=== PATIENT | male | born 1950 | race Caucasian/White ===

== ENCOUNTER 2021-09-07 02:08 | Outpatient (CLI) | payer MEDICARE, SELFPAY ==
[2021-09-07 12:44] LABS: ALT 30 U/L (16-63); AST 17 U/L (15-37); Albumin 4.3 g/dL (3.4-5.0); Alkaline Phosphatase 72 U/L (46-116); Anion Gap 4.1 mmol/L (3-11); BUN 16 mg/dL (7-18); Bilirubin, Total 0.8 mg/dL (0.2-1.0); CO2 32.9 mmol/L (21.0-32.0); CREATININE 0.9 mg/dL (0.70-1.30); Calcium 8.7 mg/dL (8.5-10.1); Calculated LDL 153 mg/dL (<100); Chloride 103 mmol/L (98-107); Cholesterol 240 mg/dL (<200); Glucose 98 mg/dL (74-106); HDL Cholesterol 71 mg/dL (40-60); Potassium 4.4 mmol/L (3.5-5.1); Sodium 140 mmol/L (136-145); Total Protein 7.4 g/dL (6.4-8.2); Triglyceride 84 mg/dL (<150)
[2021-09-07 18:32] LABS: PSA, Screening 0.4 ng/mL (0.0-6.5)
== END 2021-09-07 02:09 | disposition home or self-care (01) ==
LOC: LBO 02:08
PROVIDERS: PCP Internal Medicine; Visit Provider Internal Medicine
DX: I10 Essential (primary) hypertension (principal); E78.5 Hyperlipidemia, unspecified; Z12.5 Encounter for screening for malignant neoplasm of prostate
CPT/HCPCS: 36415; 80053; 80061; 84153

== ENCOUNTER 2022-10-29 09:07 | Outpatient (REF) | payer MEDICARE, SELFPAY ==
[2022-10-29 16:07] LABS: ALT 31 U/L (16-63); AST 20 U/L (15-37); Albumin 4.2 g/dL (3.4-5.0); Alkaline Phosphatase 87 U/L (46-116); Anion Gap 5.3 mmol/L (3-11); BUN 16 mg/dL (7-18); Bilirubin, Total 0.7 mg/dL (0.2-1.0); CO2 31.7 mmol/L (21.0-32.0); CREATININE 0.9 mg/dL (0.70-1.30); Calcium 9.3 mg/dL (8.5-10.1); Calculated LDL 196 mg/dL (<100); Chloride 106 mmol/L (98-107); Cholesterol 287 mg/dL (<200); Estimated GFR 90.18 (mL/min/1.73m2); Glucose 85 mg/dL (74-106); HDL Cholesterol 69 mg/dL (40-60); Potassium 5.3 mmol/L (3.5-5.1); Sodium 143 mmol/L (136-145); Total Protein 7.2 g/dL (6.4-8.2); Triglyceride 112 mg/dL (<150)
== END 2022-10-29 09:08 | disposition home or self-care (01) ==
LOC: NCHCN 09:07
PROVIDERS: PCP Family Medicine; Visit Provider Family Medicine
DX: E78.5 Hyperlipidemia, unspecified; I10 Essential (primary) hypertension
CPT/HCPCS: 80053; 80061

== ENCOUNTER 2022-12-05 16:24 | Outpatient (REF) | payer MEDICARE, SELFPAY ==
[2022-12-05 17:16] LABS: ALT 37 U/L (16-63); AST 24 U/L (15-37); Alkaline Phosphatase 78 U/L (46-116); Anion Gap 4.2 mmol/L (3-11); BUN 14 mg/dL (7-18); Bilirubin, Total 0.8 mg/dL (0.2-1.0); CO2 31.8 mmol/L (21.0-32.0); CREATININE 0.8 mg/dL (0.70-1.30); Calcium 8.8 mg/dL (8.5-10.1); Calculated LDL 69 mg/dL (<100); Chloride 106 mmol/L (98-107); Cholesterol 146 mg/dL (<200); Estimated GFR 92.87 (mL/min/1.73m2); Glucose 87 mg/dL (74-106); HDL Cholesterol 65 mg/dL (40-60); Potassium 4.5 mmol/L (3.5-5.1); Sodium 142 mmol/L (136-145); Total Protein 7.2 g/dL (6.4-8.2); Triglyceride 62 mg/dL (<150)
[2022-12-06 09:41] LABS: TSH (W/Ref FT4) 1.27 uIU/mL (0.36-3.74)
== END 2022-12-05 16:25 | disposition home or self-care (01) ==
LOC: NCHCN 16:24
PROVIDERS: PCP Family Medicine; Visit Provider Family Medicine
DX: E78.5 Hyperlipidemia, unspecified (principal); F43.21 Adjustment disorder with depressed mood
CPT/HCPCS: 80053; 80061; 84443

== ENCOUNTER 2023-10-31 13:12 | Outpatient (REF) | payer MEDICARE, SELFPAY ==
[2023-10-31 15:25] LABS: HGB 15.1 g/dL (13.5-17.5); MCH 31.2 pg (27.0-33.0); MCHC 33.6 % (32.0-36.0); MCV 93 fL (80-95); MPV 11.5 fL (8.0-11.0); Platelet Count 254 10^3/uL (130-400); RBC 4.84 10^6/uL (4.36-5.78); RDW-SD 44.1 fL
[2023-10-31 15:29] LABS: ALT 37 U/L (16-63); AST 27 U/L (15-37); Albumin 3.8 g/dL (3.4-5.0); Alkaline Phosphatase 70 U/L (46-116); Anion Gap 9.6 mmol/L (3-11); BUN 17 mg/dL (7-18); Bilirubin, Total 0.6 mg/dL (0.2-1.0); CO2 30.4 mmol/L (21.0-32.0); CREATININE 0.9 mg/dL (0.70-1.30); Calcium 8.7 mg/dL (8.5-10.1); Calculated LDL 57 mg/dL (<100); Chloride 106 mmol/L (98-107); Cholesterol 135 mg/dL (<200); Estimated GFR 89.62 (mL/min/1.73m2); Glucose 82 mg/dL (74-106); HDL Cholesterol 63 mg/dL (40-60); Potassium 4.8 mmol/L (3.5-5.1); Sodium 146 mmol/L (136-145); Total Protein 6.7 g/dL (6.4-8.2); Triglyceride 79 mg/dL (<150)
== END 2023-10-31 13:13 | disposition home or self-care (01) ==
LOC: NCHCN 13:12
PROVIDERS: PCP Family Medicine; Referring Provider Family Medicine; Visit Provider Family Medicine
DX: E78.5 Hyperlipidemia, unspecified (principal)
CPT/HCPCS: 80053; 80061; 85027

== ENCOUNTER 2024-02-26 21:43 | Outpatient (REF) | payer MEDICARE, SELFPAY ==
[2024-02-28 10:06] LABS: PSA, Screening 0.4 ng/mL (<=6.5)
== END 2024-02-26 21:44 | disposition home or self-care (01) ==
LOC: NCHCN 21:43
PROVIDERS: PCP Family Medicine; Visit Provider Family Medicine
DX: Z12.5 Encounter for screening for malignant neoplasm of prostate (principal)
CPT/HCPCS: 84153

== ENCOUNTER → 2024-03-02 02:21 | Outpatient (CLI) | payer MEDICARE, SELFPAY ==
--- OUTSIDE RECORDS SUMMARY | 2024-03-02 02:23 | XMS_ITS | Encounter Summary ---
Author Organization [facility] Address [address] [place] [address] Care Team Providers Care Partnership Marketing Manager Name Role Phone Ya Yee MD Primary Care Provider [phone] [phone] Reason for Visit * Reason Onset Date Comments Results 09/14/2021 Encounter Details Date Type Department Care Team (Late st Contact Info) Description 09/14/2021 Orders Only [facility] Adult Primary Care - [address] [phone] Ya Yee MD [address] [place] [phone] Social History Tobacco Use Types Packs/Day Years Used Date Smoking Tobacco: Never Smokeless Tobacco: Never Comments:Quit as a teenager Alcohol Use Standard Drinks/Week Comments Yes 8 (1 standard drink = 0.6 oz pur e alcohol) AUDIT-C Answer Date Recorded Q1: How often do you have a drink containing alcohol? 4 or more times a week 08/01/2020 Q2: How many drinks containi ng alcohol do you have on a typical day when you are drinking? 1 or 2 0 Q3: How often do you have si x or more drinks on one occasion? Never 08/01/2020 Overall Financial Resource Strain (CARDIA) Answe r Date Recorded How hard is it for you to pa y for the very basics like food, housing, medical care, and heating? Not hard at all 09/12/2021 PHQ-2 Answer Date Recorded PHQ-2 SUBTOTAL 1 08/30/2021 Hunger Vital Sign Answer Date Recorded Within the past 12 months, y ou worried that your food would run out before you got the money to buy more. Never true 09/12/19 22 Within the past 12 months, t he food you bought just didn't last and you didn't have money to get more. Never true 09/12/2021 PRAPARE - Transportation Answer Date Re corded In the past 12 months, has l ack of transportation kept you from medical appointments or from getting medications? No 08/20 In the past 12 months, has l ack of transportation kept you from meetings, work, or from getting things needed for daily living? No 09/12/2021 Housing Stability Vital Sign Answer Levi e Recorded In the last 12 months, was t here a time when you were not able to pay the mortgage or rent on time? No 09/12/2021 In the last 12 months, how many places have you lived? 2 09/12/2021 In the last 12 months, was t here a time when you did not have a steady place to sleep or slept in a chcf (including now)? No 09/12/2021 Interpersonal Safety Answer Date Record ed How often does anyone, orly chambers family, hit, punch or physically hurt you? Never 08/30/2021 How often does anyone, orly chambers family, insult, scream, curse or threaten to hurt you? Never 08/30/2021 Sex and Gender Information Value Date Recorded Sex Assigned at Not on file Gender Identity Male 10/27/2019 18:25 EDT Sexual Orientation Not on file documented as of this encounter Functional Status Functional Status Response Date of Assess ment Because of a physical, menta l, or emotional condition, does this person have difficulty doing errands alone such as visiting a doctor's office or shopping? No 04/23/2018 Cognitive Status Response Date of Assessm ent Because of a physical, menta l, or emotional condition, does this person have serious difficulty concentrating, remembering, or making decisions? No 04/23/2018 documented as of this encounter Progress Notes * Deirdre Saravia - 09/14/2021 8315 EST Enter/Edit documented in this encounter Plan of Treatment Not on file documented as of this encounter Goals Goal Patient Goal Type Associated Problems Recent Progress Patient-Stated? Author LDL < 100 Result Component Hyperlipidemia 113( 9 9:29 EDT) No Colleen Arora documented as of this encounter Procedures Procedure Name Priority Date/Time Associated Diagnosis Comments LIPID PROFILE (INCLUDES CHOLESTEROL, TRIGLYCERIDES, HDL, LDL) Routine 09/07/2021 COMPREHENSIVE METABOLIC PANEL (CMP) Routine 09/07/2021 documented in this encounter Results * (ABNORMAL) LIPID PROFILE (INCLUDES CHOLESTEROL, TRIGLYCERIDES, HDL, LDL) (09/07/2021) Cholesterol, External 240 <200 mg/dL EXTER[facility]ILITY Triglycerides, External 84 <150 mg/dL [facility] HDL, External 71 40 - 60 mg/dL [facility] LDL, External 153 <100 mg/dL [facility] Chol/HDL Ratio, External [facility] Fasting?, External unk [facility] Blood VENOUS BLOOD / Unknown 09/07/2021 Historical Provider MD CHEMISTRY & BLOOD GAS ORDERABLES EX[facility] * (ABNORMAL) COMPREHENSIVE METABOLIC PANEL (CMP) (09/07/2021) GFR, Calculated, External [facility] Glucose, Serum, External 98 74 - 106 mg/dL [facility] Albumin, External 4.3 3.4 - 5.0 g/dL [facility] Total Alkaline Phosphatase, External 72 46 - 116 U/L [facility] ALT, External 30 16 - 63 U/L [facility] AST, External 17 15 - 37 U/L [facility] BUN, External 16 7 - 18 mg/dL [facility] Calculated Calcium, External [facility] Calcium, External 8.7 8.5 - 10.1 mg/dL [facility] Chloride, External 103 98 - 107 mmol/L [facility] CO2, External 32.9 21.0 - 32.0 mmol/L [facility] Creatinine, External 0.9 0.70 - 1.30 mg/dL [facility] Fasting?, External unk [facility] Potassium, External 4.4 3.5 - 5.1 mmol/L [facility] Sodium, External 140 136 - 145 mmol/L [facility] Total Protein, External 7.4 6.4 - 8.2 g/dL [facility] Bilirubin, Total, External 0.8 0.2 - 1.0 mg/dL [facility] Blood VENOUS BLOOD / Unknown 09/07/2021 Historical Provider CHEMISTRY & BLOOD GAS ORDERABLES EXTERNAL FACILITY documented in this encounter Visit Diagnoses Not on filedocumented in this encounter Orders Lab Orders Without Results Count Last Ordered D ate First Ordered Date LIPID PROFILE (INCLUDES CHOL ESTEROL, TRIGLYCERIDES, HDL, LDL) 1 09/14/2021 documented in this encounter Care Teams Partnership Marketing Manager Relationship Specialty Start Date End Date Ya Yee MD [address] [place] [phone] PCP - General 02/23/16 10/02/21 documented as of this encounter
--- OUTSIDE RECORDS SUMMARY | 2024-03-02 02:23 | XMS_ITS | Encounter Summary ---
Author Organization [facility] Address [address] [place] [address] Care Team Providers Care Powerplant Operator Name Role Phone Ya Yee MD Primary Care Provider [phone] [phone] Reason for Visit * Reason Comments Medicare Annual Wellness Visit Encounter Details Date Type Department Care Team (Late st Contact Info) Description 09/12/2021 9:30 EST Office Visit [facility] Adult Primary Care - [address] [phone] Ya Yee MD [address] [place] [phone] Routine health maintenance (Primary Dx); Benign essential hypertension; Hyperlipidemia, unspecified hyperlipidemia type; Adjustment disorder with depressed mood Social History Tobacco Use Types Packs/Day Years [...] place to sleep or slept in a senior living (including now)? No 09/12/2021 Interpersonal Safety Answer [...] on file documented as of this encounter Last Filed Vital Signs Vital Sign Reading Time Taken Comments Blood Pressure 148/82 09/12/2021 0929 EST Pulse 68 09/12/2021 0929 EST Temperature 37.2 ??C (98.9 ??F) 09/12/2021 0929 EST Respiratory Rate 12 09/12/2021 0929 EST Oxygen Saturation - - Inhaled Oxygen Concentration - - Weight 71.3 kg (157 lb 3.2 oz) 09/12/[address] Height 176.4 cm (5' 9.45) 09/12/2021 0929 EST Body Mass Index 22.92 09/12/2021 0929 EST documented in this encounter Functional Status Functional Status Response [...] No 04/23/2018 documented as of this encounter Ordered Prescriptions Prescription Sig Dispensed Refills Start Date End Da te citalopram (CELEXA) 10 mg tablet Take 1 Tablet by mouth daily. 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 ??He is ??and lives with his . ??Current exercise: walking. ??Current diet: healthy diet ??in general. ??Stress issues are: none?Functional or impairment concerns are: none. ??He has normal activities of daily living. ?His home environment is safe. ??He is at low risk for falling. ??The healthcare team involved in caring for this patient include the following providers:(otolanyngology Chief Complaint Patient presents with ??? Medicare Annual Wellness Visit HPI Mr. Ramirez presents for annual visit. Since his last visit he and his have moved to [facility]. He reports that he is enjoying the new medication but has struggled with the transition more than he anticipated. 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 Happy that they made the move but it certainly has been harder than he anticipated. He denies any thoughts of self-harm. He does endorse some apathy. Heis sleeping well. He has no other physical complaints today. He denies chest pain or shortness of breath. No GI symptoms. He remains active walking and doing projects around the house. He is thinking about volunteering for a senior ride program. 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 Health maintenance: Due for [employer] Medicare Annual Wellness Visit - Subsequent (only updates are needed) Essential components: Patient questionnaire completed and reviewed: Yes. Full history done with PMH, PSH, SH, FH, ROS. The patient's problem list, past medical/surgical history, medications, allergies, family and social history were all updated and reviewed. Done: Yes Diet Reviewed: healthy - no recommendations Level of activity: active: 5 - 6 times per week Mood Screen; Behavioral Health Screen 08/27/2016 04/11/2018 04/25/2019 06/07/2020 06/21/2021 06/21/2021 08/30/2021 PHQ-2 0 0 0 0 0 0 1 SASQ 0 0 0 - 0 0 0 Prescription Misuse 0 0 0 - 0 0 0 Vision: assessed: No: grossly normal Functional Evaluation completed ADLs: independent Cognitive: no impairment Hearing: grossly normal Fall Risk: Fall risk screening was completed during this visit.The patient is considered to be at high risk for falls for the reasons listed below. - patient has had a previous fall within the past 12 months - number of falls in the past 12 months: 1 Follow-up actions discussed with the patient are listed below. Home Safety: smoke detectors and CO detectors Social Determinants of Health Screening: Respondent: Respondent: Self Hunger Vital Sign Result: Housing: Housing Quality: Utilities: Transportation: Physical Hurt: Insult/Talk Down: Threaten: Scream/Curse: Intervention(s): Advance Directives - has an advanced directive - a copy has been provided Updated list of treating providers on problem list: Yes Written Health Plan in patient instructions: No Billing - Subsequent [id number] Patient Active Problem List Diagnosis ??? Sensorineural hearing loss ??? Benign neoplasm of eyelid including canthus ??? Proteinuria ??? Benign essential hypertension ??? Degenerative joint disease involving multiple joints ??? Hyperlipidemia ??? Diverticulosis of large intestine without hemorrhage Outpatient Medications Marked as Taking for the 09/12/21 encounter (Office Visit) with Ya Yee MD Medication Sig Dispense Refill ??? Cholecalciferol, Vitamin D3, 400 unit tablet Take 1,000 Units by mouth daily. ??? cyanocobalamin (VITAMIN B-12) 500 mcg tablet Take 500 mcg by mouth daily. ROS - unremarkable except as noted in the HPI Objective: BP (!) 148/82 Pulse 68 Temp 37.2 ??C (98.9 ??F) (Temporal) Resp 12 Ht 176.4 cm (69.45) Wt 71.3 kg (157 lb 3.2 oz) BMI 22.92 kg/m?? Physical Exam Constitutional: General: He is not in acute distress. Appearance: He is well-developed and well-nourished. He is not diaphoretic. Neck: Vascular: No carotid bruit. Cardiovascular: Rate and Rhythm: Normal rate and regular rhythm. Pulses: Intact distal pulses. Heart sounds: Normal heart sounds. No murmur heard. Pulmonary: Effort: Pulmonary effort is normal. Breath sounds: Normal breath sounds. Abdominal: General: Bowel sounds are normal. There is no distension. Palpations: Abdomen is soft. Tenderness: There is no abdominal tenderness. Neurological: Mental Status: He is alert and oriented to person, place, and time. Psychiatric: Attention and Perception: Attention and perception normal. Mood and Affect: Affect is flat. Behavior: Behavior normal. Thought Content: Thought content normal. Cognition and Memory: Cognition and memory normal. Results for orders placed or performed in visit on 09/07/21 PSA TOTAL, DIAGNOSTIC Result Value Ref Range PSA 0.4 0.0 - 6.5 ng/mL Assessment / Plan: Luis was seen today for medicare annual wellness visit. Diagnoses and all orders for this visit: Routine health maintenance: Healthy active lifestyle, low risk for falls Benign essential hypertension: Home blood pressure readings are in the 1 20-1 30 systolic range. Slightly elevated here likely due to whitecoat hypertension -Monitor Adjustment disorder with depressed mood: Patient does endorse some depression and apathy which I think is secondary to an adjustment reaction. We discussed the importance of exercise, schedule and social interaction. Patient is interested in a trial of a low-dose SSRI which I think is appropriate. - citalopram (CELEXA) 10 mg tablet; Take 1 Tablet by mouth daily. Follow-up 1 year or sooner as needed. Patient will follow up via [facility] regarding how the trial ofcitalopram is going in a few weeks Today's telp-iz-[id number] visit time was 45 minutes with 30 minutes spent in counseling and/or coordination of care for the problems listed above. Ya Yee MD 09/12/2021 13:21 Portions of this document have been prepared with speech recognition software or keyboard database design analyst techniques. Minor irregularities or keyboarding misprints may be present. documented in this encounter Plan of Treatment Not on file documented as of this encounter Goals Goal Patient Goal Type Associated Problems Recent Progress Patient-Stated? Author LDL < 100 Result Component Hyperlipidemia 113( 9 9:29 EDT) Colleen Gracia documented as of this encounter Visit Diagnoses Diagnosis Routine health maintenance- Primary Routine general medical examination at a [facility] Benign essential hypertension Essential hypertension, benign Hyperlipidemia, unspecified hyperlipidemia type Adjustment disorder with depressed mood documented in this encounter Care Teams Powerplant Operator Relationship Specialty Start Date End Date Ya Yee MD [address] [place] [phone] PCP - General 02/23/16 10/02/21 documented as of this encounter
--- OUTSIDE RECORDS SUMMARY | 2024-03-02 02:23 | XMS_ITS | Encounter Summary ---
Author Organization [facility] Address [address] [place] [address] Care Team Providers Care Rfid Engineer Name Role Phone Ya Yee MD Primary Care Provider [phone] [phone] Reason for Visit * Reason Onset Date Comments Labs Only 06/28/2021 Encounter Details Date Type Department Care Team (Late st Contact Info) Description 06/28/2021 Orders Only [facility] Adult Primary Care - [address] [phone] Ya Yee MD [address] [place] [phone] Screening for prostate cancer (Primary Dx); Benign essential hypertension; Hyperlipidemia, unspecified hyperlipidemia type Social History Tobacco Use Types Packs/Day Years [...] care, and heating? Not hard at all 06/21/2021 PHQ-2 Answer Date Recorded PHQ-2 SUBTOTAL 0 06/21/2021 Hunger Vital Sign Answer Date Recorded Within the past 12 months, y ou worried that your food would run out before you got the money to buy more. Never true 06/21/20 21 Within the past 12 months, t he food you bought just didn't last and you didn't have money to get more. Never true 06/21/2021 PRAPARE - Transportation Answer Date Re corded In the past 12 months, has l ack of transportation kept you from medical appointments or from getting medications? No 10/2020 In the past 12 months, has l ack of transportation kept you from meetings, work, or from getting things needed for daily living? No 06/21/2021 Housing Stability Vital Sign Answer Levi e Recorded In the last 12 months, was t here a time when you were not able to pay the mortgage or rent on time? No 06/21/2021 In the last 12 months, how many places have you lived? 2 06/21/2021 In the last 12 months, was t here a time when you did not have a steady place to sleep or slept in a fpc (including now)? No 06/21/2021 Interpersonal Safety Answer Date Record ed How often does anyone, orly chambers family, hit, punch or physically hurt you? Never 06/21/2021 How often does anyone, orly chambers family, insult, scream, curse or threaten to hurt you? Never 06/21/2021 Sex and Gender Information Value Date Recorded [...] No 04/23/2018 documented as of this encounter Plan of Treatment Not on file documented as of this encounter Goals Goal Patient Goal Type Associated Problems Recent Progress Patient-Stated? Author LDL < 100 Result Component Hyperlipidemia 113( 9 9:29 EDT) No Colleen Arora documented as of this encounter Visit Diagnoses Diagnosis Screening for prostate cancer- Primary Special screening for malignant neoplasm of prostate Benign essential hypertension Essential hypertension, benign Hyperlipidemia, unspecified hyperlipidemia type documented in this encounter Care Teams Rfid Engineer Relationship Specialty Start Date End Date Ya Yee MD [address] [place] [phone] PCP - General 02/23/16 10/02/21 documented as of this encounter
--- OUTSIDE RECORDS SUMMARY | 2024-03-02 02:23 | XMS_ITS | Encounter Summary ---
Author Organization [facility] Address [address] [place] [address] Care Team Providers Care Ict Educator Name Role Phone Ya Yee MD Primary Care Provider [phone] [phone] Reason for Visit * Reason Comments Cerumen Impaction Encounter Details Date Type Department Care Team (Late st Contact Info) Description 11/25/2020 8:30 EDT Office Visit [facility] ENT- [address] [phone] Marge Shields, PA-C [address] [facility], [address] [place] [address] Impacted cerumen of left ear (Primary Dx) Social History Tobacco Use Types Packs/Day Years [...] more drinks on one occasion? Never 08/01/2020 PHQ-2 Answer Date Recorded PHQ-2 SUBTOTAL 0 06/07/2020 Hunger Vital Sign Answer Date Recorded Within the past 12 months, y ou worried that your food would run out before you got the money to buy more. Never true 08/01/20 20 Within the past 12 months, t he food you bought just didn't last and you didn't have money to get more. Never true 08/01/2020 Interpersonal Safety Answer Date Record ed Physically Hurt Never 04/26/2020 Verbally Threaten Not on file 04/26/2020 Sex and Gender Information Value Date Recorded [...] as of this encounter Progress Notes * Marge Shields PA-C - 11/25/2020 0830 EDT .Luis Clayton presents today for management of ear wax. He notes no ear pain or otorrhea. He has used debrox in the left ear for cerumen adhered to TM. ENT Cerumenectomy Indications for Procedure: Cerumen impairs exam of clinically significant portions of the ear(s). and Obstructive copious cerumen that cannot be removed safely without magnification and multiple instruments. Careful examination of the ear and removal of cerumen was done on the left ear using the operating microscope and microinstruments/suction. The patient tolerated this procedure well. Complications: None Findings: Left canal and TM WNL after wax removed. Right canal and TM WNL. Assess: Cerumen impaction Plan: Follow up visit 3 months, may use debrox prior. Marge Shields PA-C documented in this encounter Plan of Treatment Not on file documented as of this encounter Goals Goal Patient Goal Type Associated Problems Recent Progress Patient-Stated? Author LDL < 100 Result Component Hyperlipidemia 113( 9 9:29 EDT) No Colleen Arora documented as of this encounter Visit Diagnoses Diagnosis Impacted cerumen of left ear- Primary Impacted cerumen documented in this encounter Care Teams Ict Educator Relationship Specialty Start Date End Date Ya Yee MD [address] [place] [phone] PCP - General 02/23/16 10/02/21 documented as of this encounter
--- OUTSIDE RECORDS SUMMARY | 2024-03-02 02:23 | XMS_ITS | Encounter Summary ---
Author Organization [facility] Address [address] [place] [address] Care Team Providers Care Antique Clocks Repairer Name Role Phone Ya Yee MD Primary Care Provider [phone] [phone] Encounter Details Date Type Department Care Team (Latest Contact Info) Description 02/27/2021 Travel Social History Tobacco Use Types Packs/Day Years [...] 18:25 EDT Sexual Orientation Not on file COVID-19 Exposure Response Date Recorded In the last month, have you been in contact with someone who was confirmed or suspected to have Coronavirus / COVID-19? No / Unsure 02/27/2021 16:16 EDT documented as of this encounter Functional Status [...] documented as of this encounter Visit Diagnoses Not on filedocumented in this encounter Care Teams Antique Clocks Repairer Relationship Specialty Start Date End Date Ya Yee MD [address] [place] [phone] PCP - General 02/23/16 10/02/21 documented as of this encounter
--- OUTSIDE RECORDS SUMMARY | 2024-03-02 02:23 | XMS_ITS | Encounter Summary ---
Author Organization [facility] Address [address] [place] [address] Care Team Providers Care Forensic Technician Name Role Phone Ya Yee MD Primary Care Provider [phone] [phone] Reason for Visit * Reason Onset Date Comments Appointment Related 06/29/2021 Encounter Details Date Type Department Care Team (Late st Contact Info) Description 06/29/2021 Telephone [facility] Adult Primary Care - [address] [phone] Ya Yee MD [address] [place] [phone] Appointment Related Social History Tobacco Use Types Packs/Day Years [...] No 04/23/2018 documented as of this encounter Miscellaneous Notes * Telephone Encounter - Manjit Deirdre - 06/29/2021 0979 EST Voicemail left for pt on 06/29/21 reminding them of their upcoming appt and fasting lab work. Pt informed of current lab hours and closures. documented in this encounter Plan of Treatment Not on file documented as of this encounter Goals Goal Patient Goal Type Associated Problems Recent Progress Patient-Stated? Author LDL < 100 Result Component Hyperlipidemia 113( 9 9:29 EDT) Colleen Gracia documented as of this encounter Visit Diagnoses Not on filedocumented in this encounter Care Teams Forensic Technician Relationship Specialty Start Date End Date Ya Yee MD [address] [place] [phone] PCP - General 02/23/16 10/02/21 documented as of this encounter
--- OUTSIDE RECORDS SUMMARY | 2024-03-02 02:23 | XMS_ITS | Referral Summary ---
Author Organization [facility] Address [address] [place] [address] Care Team Providers Care Fish Butcher Name Role Phone Levon Ascencio MD Primary Care Provider [phone] Encounters Date Type Department Care Team Description 02/27/2024 Lab Requisition [facility] Pathology & Laboratory Medicine - [facility] [address] [place] [address] Outr Resulting Lab, Provider from Last 3 Months Allergies No known active allergies Medications Medication Sig Dispensed Refills Start Date End Date Status Cholecalciferol, Vitamin D3, 400 unit tablet Take 1,000 Units by mouth daily. Active cyanocobalamin (VITAMIN B-12) 500 mcg tablet Take 500 mcg by mouth daily. Active citalopram (CELEXA) 10 mg tablet Take 1 Tablet by mouth daily. 30 Tablet 2 09/12/2021 Active Active Problems Patient Care Coordination No te Formatting of this note migh t be different from the original. 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 5 ml IM (6 mos+) 06/30/2020 Pneumococcal Conjugate Vacci ne 13-Valent (PCV13) (PREVNAR-13) 0.5 mL IM (6 wks+) 08/27/2016 Pneumococcal Polysaccharide (PPSV23) Vaccine (PNEUMOVAX-23) =>2YO SQ/IM 04/23/2018,08/10/2008 Tdap Vaccine =>7YO IM 08/27/2013 Zostavax (Zoster Vaccine, Live) SQ 03/08/2011 Social History Tobacco Use Types Packs/Day Years Used Date Smoking Tobacco: Never Smokeless Tobacco: Never Tobacco Cessation:Counseling Given: No Comments:Quit as a teenager Alcohol Use Standard [...] slept in a fpc (including now)? No 09/12/2021 Interpersonal Safety Answer Date Record ed How often does anyone, orly chambers family, hit, punch or physically hurt you? Never 08/30/2021 How often does anyone, roly chambers family, insult, scream, curse or threaten to hurt you? Never 08/30/2021 Sex and Gender Information Value Date Recorded Sex Assigned at Not on file Gender Identity Male 10/27/2019 18:25 EDT Sexual Orientation Not on file Last Filed Vital Signs Vital Sign Reading Time Taken Comments Blood Pressure 148/82 09/12/2021 0929 EST Pulse 68 09/12/2021 0929 EST Temperature 37.2 ??C (98.9 ??F) 09/12/2021 0929 EST Respiratory Rate 12 09/12/2021 0929 EST Oxygen Saturation 100% 06/07/2020 1353 EDT Inhaled Oxygen Concentration - - Weight 71.3 kg (157 lb 3.2 oz) 09/12/[address] Height 176.4 cm (5' 9.45) 09/12/2021 0929 EST Body Mass Index 22.92 09/12/2021 0929 EST Functional Status Functional Status Response Date of [...] concentrating, remembering, or making decisions? No 04/23/2018 Plan of Treatment Not on file Goals Goal Patient Goal Type Associated Problems Recent Progress Patient-Stated? Author LDL < 100 Result Component Hyperlipidemia 113( 9 9:29 EDT) Colleen Gracia Procedures Procedure Name Priority Date/Time Associated Diagnosis Comments PSA TOTAL, DIAGNOSTIC Routine 02/26/2024 14:55 EDT LIPID PROFILE (INCLUDES CHOLESTEROL, TRIGLYCERIDES, HDL, LDL) Routine 09/07/2021 COLONOSCOPY PROCEDURE Routine 04/30/2019 HEPATITIS C AB W REFLEX TO HCV RNA BY PCR Routine 10/21/2018 9:01 EST Encounter for hepatitis C screening test for low risk patient from Last 3 Months or Most Recently Relevant to Health Maintenance Results * PSA TOTAL, DIAGNOSTIC (02/26/2024 14:55 EDT) PSA 0.4 <=6.5 ng/mL 02/28/2024 10:01 EDT [facility] Blood VENOUS BLOOD / Unknown 02/26/2024 14:55 EDT 02/27/2024 22:17 EDT Narrative [facility] - 02/28/2024 10:01 EDT NOTE: Serum PSA concentration should not be interpreted as absolute evidence for the presence or absence of malignant disease. Assayed on Siemens ADVIA Centaur XPT using chemiluminescent technology.??Values obtained by using different assay methods cannot be used interchangeably. Provider Outr Resulting Lab CHEMISTRY & BLOOD GAS ORDERABLES [facility] [address] [place] [phone] * (ABNORMAL) LIPID PROFILE (INCLUDES CHOLESTEROL, TRIGLYCERIDES, [...] & BLOOD GAS ORDERABLES EXTERNAL FACILITY * COLONOSCOPY PROCEDURE (04/30/2019) Anatomical Region Laterality Modality Endoscopy 04/30/2019 Narrative 04/30/2019 11:40 EDT Procedure Performed Colonoscopy Indications for Exam History of colonic polyps. Surveillance. Procedure Technique A physical exam was performed. Informed consent was obtained from the patient after explaining all the risks (perforation, bleeding, missed findings, injury to nearby organs, infection and adverse effects to the medicine), benefits and alternatives to the procedure which the patient appeared to understand and so stated. ??The patient was connected to the monitoring devices and placed in the left lateral position. Continuous oxygen was provided with a nasal cannula and IV medicine administered thru an indwelling cannula. After adequate sedation was achieved, a digital exam was performed and the colonoscope introduced into the rectum and advanced under direct visualization to the cecum. The cecum was identified by visual landmarks. The endoscope was subsequently removed slowly while carefully examining the color, texture, anatomy, and integrity of the mucosa on withdrawal. Retroflexion was performed in the rectum: Yes. The patient was subsequently transferred to the recovery area in satisfactory condition. Rectal Exam:Normal Estimated Blood Loss: None Complications None Medications Versed 3 mg Demerol 75 mg I was in continuous face to face attendance during the administration of moderate sedation services that were monitored by an independent trained observer who had no other duties during the procedure. ??Total sedation time was 16 ?? minutes. [place] Bowel Prep Right Colon: 1 ? Transverse Colon: 3 ? Left Colon: 2 ?Total: 6 Findings Moderate diverticulosis in the sigmoid colon. Diagnosis Moderate diverticulosis in the sigmoid colon. Recommendations Repeat colonoscopy in 10 years if no other co-morbidity. The??procedure??was??performed??by??Dr. Mel Marshall M.D. in the presence of Dr. Prem Hearn. The attending physician was in the room for the entire procedure. This electronic signature authenticates all electronic and/or handwritten documentation, including orders, generated by the signer during the episode of care contained in this record. 04/30/2019 11:40:59 AM By Prem Hearn MD Prem Hearn MD GI PROCEDURE ORDERA BLES * HEPATITIS C AB W REFLEX TO HCV RNA BY PCR (10/21/2018 9:01 EST) Hep C Ab w Rfx PCR HCSCR2 Negative Negative 10/22/2018 9:56 EST [facility] Blood specimen (specimen) BLOOD SPECIMEN / Unknown 10/21/2018 9:01 EST 10/21/2018 10:24 EST Ya Yee MD CHEMISTRY & BLOOD GAS ORDERABLES [facility] [address] [place] [address] from Last 3 Months or Most Recently Relevant to Health Maintenance Advance Directives For more information, please contact: [phone] Documents on File Type Date Recorded Patient Pantry Goods Maker Expl anation Advance Directive 10/24/2018 8:52 2011-07-19 5 ADVANCE DIRECTIVE Care Teams Fish Butcher Relationship Specialty Start Date End Date Levon Ascencio MD [address] [facility] [address] [place] [address] PCP - General Emergency Medicine 10/03/21
--- OUTSIDE RECORDS SUMMARY | 2024-03-02 02:23 | XMS_ITS | Encounter Summary ---
Author Organization [facility] Address [address] [place] [address] Care Team Providers Care Tool Shaper Set Up Operator Name Role Phone Levon Ascencio MD Primary Care Provider [phone] Encounter Details Date Type Department Care Team (Late st Contact Info) Description 02/27/2024 Lab Requisition [facility] Pathology & Laboratory Medicine - [address] [address] Outr Resulting Lab, Provider Social History Tobacco Use Types Packs/Day Years [...] place to sleep or slept in a alf (including now)? No 09/12/2021 Interpersonal Safety Answer [...] PSA TOTAL, DIAGNOSTIC Routine 02/26/2024 14:55 EDT documented in this encounter Results * PSA TOTAL, DIAGNOSTIC (02/26/2024 14:55 EDT) PSA 0.4 <=6.5 ng/mL 02/28/2024 10:01 EDT [facility] Blood VENOUS BLOOD / Unknown 02/26/2024 14:55 EDT 02/27/2024 22:17 EDT Narrative [facility] - 02/28/2024 10:01 EDT NOTE: Serum PSA concentration should not be interpreted as absolute evidence for the presence or absence of malignant disease. Assayed on Siemens Audax MedicalIA Good Faith Film Fundaur XPT using chemiluminescent technology.??Values obtained by using different assay methods cannot be used interchangeably. Provider Outr Resulting Lab CHEMISTRY & BLOOD GAS ORDERABLES [facility] [address] [place], [place] [id number] documented in this encounter Visit Diagnoses Not on filedocumented in this encounter Care Teams Tool Shaper Set Up Operator Relationship Specialty Start Date End Date Levon Ascencio MD [address] [facility] [address] [place] [address] PCP - General Emergency Medicine 10/03/21 documented as of this encounter
--- OUTSIDE RECORDS SUMMARY | 2024-03-02 02:23 | XMS_ITS | Encounter Summary ---
Author Organization [facility] Address [address] [place] [address] Care Team Providers Care Custom Stock Maker Name Role Phone Ya Yee MD Primary Care Provider [phone] Levon Ascencio MD Primary Care Provider [phone] Encounter Details Date Type Department Care Team (Late st Contact Info) Description 09/07/2021 Lab Requisition [facility] Pathology & Laboratory Medicine - [facility] [address] [place] [address] Outr Resulting Lab, Provider Social History Tobacco [...] care, and heating? Not hard at all 08/30/2021 PHQ-2 Answer Date Recorded PHQ-2 SUBTOTAL 1 08/30/2021 Hunger Vital Sign Answer Date Recorded Within the past 12 months, y ou worried that your food would run out before you got the money to buy more. Never true 08/30/19 22 Within the past 12 months, t he food you bought just didn't last and you didn't have money to get more. Never true 08/30/2021 PRAPARE - Transportation Answer Date Re corded In the past 12 months, has l ack of transportation kept you from medical appointments or from getting medications? No 08/19 In the past 12 months, has l ack of transportation kept you from meetings, work, or from getting things needed for daily living? No 08/30/2021 Housing Stability Vital Sign Answer Levi e Recorded In the last 12 months, was t here a time when you were not able to pay the mortgage or rent on time? No 08/30/2021 In the last 12 months, how many places have you lived? 2 08/30/2021 In the last 12 months, was t here a time when you did not have a steady place to sleep or slept in a assisted (including now)? No 08/30/2021 Interpersonal Safety Answer Date Record ed How [...] Associated Diagnosis Comments PSA TOTAL, DIAGNOSTIC Routine 09/07/2021 10:46 EST documented in this encounter Results * PSA TOTAL, DIAGNOSTIC (09/07/2021 10:46 EST) PSA 0.4 0.0 - 6.5 ng/mL 09/07/2021 18:27 EST [facility] Blood VENOUS BLOOD / Unknown 09/07/2021 10:46 EST 09/07/2021 16:46 EST Narrative [facility] - 09/07/2021 18:27 EST NOTE: Serum PSA concentration should not be interpreted as absolute evidence for the presence or absence of malignant disease. Assayed on Profiteroaur XPT using chemiluminescent technology.??Values obtained by using different assay methods cannot be used interchangeably. Provider Outr Resulting Lab CHEMISTRY & BLOOD GAS ORDERABLES [facility] [address] [place] [address] documented in this encounter Visit Diagnoses Not on filedocumented in this encounter Care Teams Custom Stock Maker Relationship Specialty Start Date End Date Ya Yee MD [address] [place] [id number] PCP - General 02/23/16 10/02/21 Levon Ascencio MD [address] [facility] [address] [place], [place] [address] PCP - General Emergency Medicine 10/03/21 documented as of this encounter
--- OUTSIDE RECORDS SUMMARY | 2024-03-02 02:23 | XMS_ITS | Encounter Summary ---
Author Organization [facility] Address [address] [place] [address] Care Team Providers Care Wrecking Crane Engine Operator Name Role Phone Ya Yee MD Primary Care Provider [phone] Reason for Visit * Reason Comments Cerumen Impaction Encounter Details Date Type Department Care Team (Late st Contact Info) Description 02/27/2021 16:15 EDT Office Visit [facility] [address] [place], [place] [id number] Marge Shields, PA-C [address] [facility], [address] [place] [address] Bilateral impacted cerumen (Primary Dx) Social History Tobacco Use Types [...] Progress Notes * Marge Shields PA-C - 02/27/2021 1615 EDT .Luis Clayton presents today for management [...] and removal of cerumen was done on both ears using the operating microscope and microinstruments/suction. The patient tolerated this procedure well. Complications: None Findings: canals and TMs WNL after wax removed. Assess: Cerumen impaction Plan: Follow up visit prn, as patient has moved. Marge Shields PA-C documented in this encounter Plan of Treatment Not on file documented as of this encounter Goals Goal Patient Goal Type Associated Problems Recent Progress Patient-Stated? Author LDL < 100 Result Component Hyperlipidemia 113( 9 9:29 EDT) No Colleen Arora documented as of this encounter Visit Diagnoses Diagnosis Bilateral impacted cerumen- Primary Impacted cerumen documented in this encounter Care Teams Wrecking Crane Engine Operator Relationship Specialty Start Date End Date Ya Yee MD [address] [place] [phone] PCP - General 02/23/16 10/02/21 documented as of this encounter
--- OUTSIDE RECORDS SUMMARY | 2024-03-02 02:23 | XMS_ITS | Encounter Summary ---
Author Organization [facility] Address [address] [place] [address] Care Team Providers Care Real Estate Consultant Name Role Phone Ya Yee MD Primary Care Provider [phone] Levon Ascencio MD Primary Care Provider [phone] Reason for Visit * Reason Onset Date Comments Appointment Related 11/23/2020 Encounter Details Date Type Department Care Team (Late st Contact Info) Description 11/23/2020 Telephone [facility] Neurology - [address] [phone] Yohan Cabzeas MD [address] [place] [address], [address] [place] [address] Appointment Related Social History Tobacco Use Types [...] place to sleep or slept in a halfway (including now)? No 09/12/2021 Interpersonal Safety Answer [...] encounter Miscellaneous Notes * Telephone Encounter - Pillo Rowland - 11/23/2020 1109 EDT Outgoing call to schedule next appt with Dr. Cabezas. Pt was last seen in April 2020 and the return instructions were: MD will be glad to work with pt as-needed or as deemed necessary by the referring provider/PCP. UPDATE: MD called pt about a month ago for a check-in and pt declines an appt at this time, will call us asneeded. documented in this encounter Plan of Treatment Not on file documented as of this encounter Goals Goal Patient Goal Type Associated Problems Recent Progress Patient-Stated? Author LDL < 100 Result Component Hyperlipidemia 113( 9 9:29 EDT) No Colleen Arora documented as of this encounter Visit Diagnoses Not on filedocumented in this encounter Care Teams Real Estate Consultant Relationship Specialty Start Date End Date Ya Yee MD [address] [place] [phone] PCP - General 02/23/16 10/02/21 Levon Ascencio MD [address] [facility] [address] [place] [address] PCP - General Emergency Medicine 10/03/21 documented as of this encounter
--- OUTSIDE RECORDS SUMMARY | 2024-03-02 02:23 | XMS_ITS | Clinical Summary ---
Author Organization [facility] Address [address] [place] [address] Care Team Providers Care Lathe Puller Name Role Phone Levon Ascencio MD Primary Care Provider [phone] Allergies No known active allergies Medications Medication [...] Lateral epicondylitis 11/09/20132015 Impacted cerumen 06/27/2009 02/23/2016 Encounters Date Type Department Care Team Description 02/27/2024 Lab Requisition [facility] Pathology & Laboratory Medicine - [facility] [address] [place] [address] Outr Resulting Lab, Provider from Last 3 Months Immunizations Name Administration Dates Next Due Covid-19 mRNA Vaccine (PFIZE R COVID-19) PF 0.3 ml IM (12 yrs+) 05/22/2021,11/03/2020,10/14/2020 Influenza Vaccine Quad PF 0. 5 ml IM (6 mos+) 06/30/2020 Pneumococcal Conjugate Vacci ne 13-Valent (PCV13) (PREVNAR-13) 0.5 mL IM (6 wks+) 08/27/2016 Pneumococcal Polysaccharide (PPSV23) Vaccine (PNEUMOVAX-23) =>2YO SQ/IM 04/23/2018,08/10/2008 Tdap Vaccine =>7YO IM 08/27/2013 Zostavax (Zoster Vaccine, Live) SQ 03/08/2011 Surgical History Surgery Date Site/Laterality Comments FACIAL COSMETIC SURGERY Had a lesion removed just above lip on 10/02/10 TONSILLECTOMY HERNIA REPAIR Medical History Medical History Date Comments Benign essential hypertension 03/13/2013 Arthritis neck Family History Medical History Relation Comments Cancer Brother 1 prostate Prostate Cancer Brother 1 Heart Disease Father LA High Blood Pressure Father High Cholesterol Father Dementia Mother Alzheimers Diabetes Paternal Uncle Heart Disease Paternal Uncle Relation Status Comments Brother 1 Alive Brother 2 Alive Daughter Alive Father Mother Alive Paternal Uncle Sister Alive Social History Tobacco Use Types Packs/Day Years [...] place to sleep or slept in a nursing home (including now)? No 09/12/2021 Interpersonal Safety Answer [...] 18:25 EDT Sexual Orientation Not on file Obstetrics History Last Filed Vital Signs Vital Sign Reading [...] Body Mass Index 22.92 09/12/2021 0929 EST Plan of Treatment Health Maintenance Due Date Last Done Comments Jazzmine (Colon Cancer Screening) 1993 FIT Test (Colon Cancer Screening) 1993 Sigmoidoscopy (Colon Cancer Screening) 1993 RSV Immunization ( o r 60+ Years) (1 - 1-dose 60+ series) 2008 Shingles Immunization (2 of 3) 05/03/2011 03/08/2011 Depression Screening 09/12/2022 09/12/2021, 05/07/2019, 05/07/2019, Additional history exists Fall Risk Screening 09/12/2022 09/12/2021, 02/27/2021, 08/01/2020, Additional history exists Social Determinants Of Healt h (SDOH) 09/12/2022 09/12/2021, 05/07/2019 COVID-19 Vaccine (2022-2 4 season) 2023 05/22/2021, 11/03/2020, 10/14/2020 Tetanus (Adult) Immunization 08/27/2023 08/27/2013 Preventive Care Visit 09/12/2023 09/12/2021 , 06/30/2020, 05/07/2019, Additional history exists Advance Directive Review 10/25/2023 Lipid Profile Screening (Cholesterol) 09/14/2026 09/14/2021, 09/07/2021, 05/04/2019, Additional history exists Colonoscopy (Colon Cancer Screening) 04/30/2029 04/30/2019, 09/16/2013 Colorectal Cancer Screening 04/30/2029 Pertussis (Adult) Immunization Completed 08/27/2013 Pneumococcal Immunization (65+) Completed 04/23/2018, 08/27/2016, 08/10/2008 Hepatitis C Screen Completed 10/21/2018 Advance Directive Completed 10/24/2018, 08/06/2011 Influenza Immunization (Adult) Discontinued 06/30/2020 Goals Goal Patient Goal Type Associated Problems Recent Progress Patient-Stated? Author LDL < 100 Result Component Hyperlipidemia 113( 9 9:29 EDT) No Colleen Arora Procedures Procedure Name Priority Date/Time Associated Diagnosis [...] PSA 0.4 <=6.5 ng/mL 02/28/2024 10:01 EDT [facility] Blood VENOUS BLOOD / Unknown 02/26/2024 14:55 EDT 02/27/2024 22:17 EDT Narrative [facility] - 02/28/2024 10:01 EDT NOTE: Serum PSA concentration should not be interpreted as absolute evidence for the presence or absence of malignant disease. Assayed on Siemens WisrIA ProtoStaraur XPT using chemiluminescent technology.??Values obtained by using different assay methods cannot be used interchangeably. Provider Outr Resulting Lab CHEMISTRY & BLOOD GAS ORDERABLES [facility] [address] [place] [address] * (ABNORMAL) LIPID PROFILE (INCLUDES CHOLESTEROL, TRIGLYCERIDES, [...] ??Total sedation time was 16 ?? minutes. [place] Bowel Prep Right Colon: 1 ? Transverse [...] PCR HCSCR2 Negative Negative 10/22/2018 9:56 EST [facility] Blood specimen (specimen) BLOOD SPECIMEN / Unknown 10/21/2018 9:01 EST 10/21/2018 10:24 EST Ya Yee MD CHEMISTRY & BLOOD GAS ORDERABLES [facility] [address] [place] [address] from Last 3 Months or Most Recently Relevant to Health Maintenance Advance Directives For more information, please contact: [phone] Documents on File Type Date Recorded Patient Driller And Broacher Expl anation Advance Directive 10/24/2018 8:52 2011-07-19 5 ADVANCE DIRECTIVE Care Teams Lathe Puller Relationship Specialty Start Date End Date Levon Ascencio MD [address] [facility] [address] [place] [address] PCP - General Emergency Medicine 10/03/21
--- OUTSIDE RECORDS SUMMARY | 2024-03-02 02:23 | XMS_ITS | Encounter Summary ---
Author Organization [facility] Address [address] [place] [address] Care Team Providers Care Drop Tester Name Role Phone Ya Yee MD Primary Care Provider [phone] Reason for Visit * Reason Onset Date Comments Letter for School/Work 12/07/2020 Encounter Details Date Type Department Care Team (Late st Contact Info) Description 12/07/2020 Telephone [facility] Primary Care - [address] [phone] Ya Yee MD [address] [place] [phone] Letter for School/Work Social History Tobacco Use Types Packs/Day Years [...] encounter Miscellaneous Notes * Telephone Encounter - Savannah Claros - 12/09/2020 1149 EDT Signed letter received from Dr Yee. Outgoing call to patient. He will pick pulling machine operator from the office on Saturday. * Telephone Encounter - Ya Yee MD - 12/08/2020 0728 EDT Letter signed, thanks * Telephone Encounter - Viktoria Foote - 12/07/2020 1002 EDT Employer requires a letter signed by PCP stating patient has received both COVID vaccinations &is allowed to return to work Letter pended to PCP to edit documented in this encounter Plan of Treatment Not on file documented as of this encounter Goals Goal Patient Goal Type Associated Problems Recent Progress Patient-Stated? Author LDL < 100 Result Component Hyperlipidemia 113( 9 9:29 EDT) No Colleen Arora documented as of this encounter Visit Diagnoses Not on filedocumented in this encounter Care Teams Drop Tester Relationship Specialty Start Date End Date Ya Yee MD [address] [place] [phone] PCP - General 02/23/16 10/02/21 documented as of this encounter
--- OUTSIDE RECORDS SUMMARY | 2024-03-02 02:23 | XMS_ITS | Encounter Summary ---
Author Organization [facility] Address [address] [place] [address] Care Team Providers Care Fine Chemicals Operator Name Role Phone Ya Yee MD Primary Care Provider [phone] [phone] Reason for Visit * Reason Onset Date Comments Referral Request 07/12/2021 Encounter Details Date Type Department Care Team (Late st Contact Info) Description 07/12/2021 Telephone [facility] Adult Primary Care - [address] [phone] Ya Yee MD [address] [place] [phone] Referral Request Social History Tobacco Use Types Packs/Day Years [...] place to sleep or slept in a intermediate (including now)? No 06/21/2021 Interpersonal Safety Answer [...] encounter Miscellaneous Notes * Telephone Encounter - Ya Yee MD - 07/14/2021 0742 EST Orders signed, thanks * Telephone Encounter - Viktoria Foote - 07/12/2021 1302 EST Art has moved to [facility] - will continue seeing Dr Yee as PCP but is requesting a referral to [facility] for continued ear flushes etc [facility] documented in this encounter Plan of Treatment Not on file documented as of this encounter Goals Goal Patient Goal Type Associated Problems Recent Progress Patient-Stated? Author LDL < 100 Result Component Hyperlipidemia 113( 9 9:29 EDT) Colleen Gracia documented as of this encounter Visit Diagnoses Diagnosis Bilateral impacted cerumen- Primary Impacted cerumen documented in this encounter Care Teams Fine Chemicals Operator Relationship Specialty Start Date End Date Ya Yee MD [address] [place] [phone] PCP - General 02/23/16 10/02/21 documented as of this encounter
--- OUTSIDE RECORDS SUMMARY | 2024-03-02 02:24 | XMS_ITS | Encounter Summary ---
Author Organization [facility] Address [address] [place] [address] Care Team Providers Care Tax Audit Manager Name Role Phone Ya Yee MD Primary Care Provider [phone] [phone] Reason for Visit * Reason Onset Date Comments Post-ED Follow Up 06/10/2020 Encounter Details Date Type Department Care Team (Late st Contact Info) Description 06/10/2020 Telephone [facility] Adult Primary Care - [place] [address] [place] [address] Lizbeth Vera RN Post-ED Follow Up Social History Tobacco Use Types Packs/Day Years Used Date Smoking Tobacco: Never Smokeless Tobacco: Never Comments:Quit as a teenager Alcohol Use Standard Drinks/Week Comments Yes 8 (1 standard drink = 0.6 oz pur e alcohol) AUDIT-C Answer Date Recorded Q1: How often do you have a drink containing alcohol? 4 or more times a week 04/22/2020 Q2: How many drinks containi ng alcohol do you have on a typical day when you are drinking? 1 or 2 0 Q3: How often do you have si x or more drinks on one occasion? Never 04/22/2020 PHQ-2 Answer Date Recorded PHQ-2 SUBTOTAL 0 06/07/2020 Hunger Vital Sign Answer Date Recorded Worried About Running Out of Food in the Last Ye ar Never true 04/26/2020 Ran Out of Food in the Last Year Never true 04/26/2020 Interpersonal Safety Answer Date Record ed Physically [...] encounter Miscellaneous Notes * Telephone Encounter - Lizbeth Vera, RN - 06/10/2020 1111 EDT We see you were in the Emergency Department for abd pain on 06/07/20. How are you feeling/symptoms improving? Yes, still has the pain somewhat, it comes and goes, eatingmakes it worse. Relieved that it is nothing bad Do you have any questions? No: Can we schedule a follow up visit? Yes, feels ok waiting until 06/30. Advised that we have nurse's on the phones all day and provider's on all night if they require any assistance documented in this encounter Plan of Treatment Not on file documented as of this encounter Goals Goal Patient Goal Type Associated Problems Recent Progress Patient-Stated? Author LDL < 100 Result Component Hyperlipidemia 113( 9 9:29 EDT) No Colleen Arora documented as of this encounter Visit Diagnoses Not on filedocumented in this encounter Care Teams Tax Audit Manager Relationship Specialty Start Date End Date Ya Yee MD [address] [place] [phone] PCP - General 02/23/16 10/02/21 documented as of this encounter
--- OUTSIDE RECORDS SUMMARY | 2024-03-02 02:24 | XMS_ITS | Encounter Summary ---
Author Organization [facility] Address [address] [place] [address] Care Team Providers Care Data Specialist Name Role Phone Ya Yee MD Primary Care Provider [phone] [phone] Reason for Referral * Referral (Routine) - Specialty Report Received Specialty Diagnoses / Procedures Referred By Contact Referred To Contact Gastroenterology and Hepatology Diagnoses Screening for colorectal cancer Procedures COLONOSCOPY REQUEST Ya Yee MD [address] [place] [phone] [facility] [address] [place] [address] Referral ID Status Reason Start Date Expiration Date V isits Requested Visits Authorized [id number] Specialty Report Received 11/03/2018 1 1 Reason for Visit * Reason Comments Hyperlipidemia Knee Pain Results lab Encounter Details Date Type Department Care Team (Late st Contact Info) Description 11/03/2018 10:15 EDT Office Visit [facility] Adult Primary Care - [address] [address] Ya Yee MD [address] [place] [phone] Hyperlipidemia, unspecified hyperlipidemia type (Primary Dx); Screening for colorectal cancer Social History Tobacco Use Types Packs/Day Years Used Date Smoking Tobacco: Never Smokeless Tobacco: Never Comments:Quit as a teenager Alcohol Use Standard Drinks/Week Comments Yes 8 (1 standard drink = 0.6 oz pur e alcohol) Sex and Gender Information Value Date Recorded Sex Assigned at Not on file Gender Identity Male 10/27/2019 18:25 EDT Sexual Orientation Not on file documented as of this encounter Last Filed Vital Signs Vital Sign Reading Time Taken Comments Blood Pressure 136/80 11/03/2018 1007 EDT Pulse 64 11/03/2018 1007 EDT Temperature 35.9 ??C (96.7 ??F) 11/03/2018 1007 EDT Respiratory Rate 12 11/03/2018 1007 EDT Oxygen Saturation - - Inhaled Oxygen Concentration - - Weight 76.7 kg (169 lb) 11/03/2018 1007 EDT Height - - Body Mass Index 25.91 04/23/2018 0811 EDT documented in this encounter Functional Status Functional [...] Dispensed Refills Start Date End Da te polyethylene glycol (GOLYTELY;NULYTELY) 236-22.74-6.74 -5.86 gram suspension Instructions mailed once procedure scheduled. Questions: [facility] Gastroenterology: [phone] or GI Doctor's Office. 4000 mL 11/03/2018 05/02/2019 documented in this encounter Progress Notes * Ya Yee MD, - 11/03/2018 1015 EDT Patient ID: Luis Clayton is a 67 y.o. y.o. male Chief Complaint: Hyperlipidemia; Knee Pain; and Results (lab) History of present Illness (HPI): Mr. Ramirez presents for follow-up. He has been thinking a lot about mortality recently as a good friend from childhood has terminal brain cancer and is at the end of his life. Patient has no specific complaints today. He continues to feel well and leads a healthy, active life. HLD: We reviewed his lipids- LDL and ratio are elevated. Patient notes that he tends to be a bit less active and eats more in the winter. Has gained 5 lbs since the summer. Planning to increase exercise over the summer. Denies CP, palpitations, SOB, edema. No GI complaints. Knee pain: occasional twinge when he kneels on R knee but otherwise resolved. Due for colo Current Outpatient Medications: Cholecalciferol, Vitamin D3, 400 unit tablet Take 1,000 Units by mouth daily. polyethylene glycol (GOLYTELY;NULYTELY) 236-22.74-6.74 -5.86 gram suspension Instructions mailed once procedure scheduled. Questions: [facility] Gastroenterology: [phone] or GI Doctor's Office. (Patient not taking: Reported on 11/03/2018) No Known Allergies Review of Systems: see HPI Objective: Physical Examination: BP 136/80 Pulse 64 Temp 35.9 ??C (96.7 ??F) (Tympanic) Resp 12 Wt 76.7 kg (169 lb) BMI 25.91 kg/m?? General: Alert, cooperative, no distress. Head: Normocephalic, without obvious abnormality. Eyes: Conjunctivae clear. PERRL, EOMs intact. Lungs: Clear to auscultation bilaterally. Heart: Regular rate and rhythm, S1, S2 normal, no systolic murmur, no click, rub or gallop. Neurologic: A+Ox3, pleasant. NMl gait LABS: Results for orders placed or performed in visit on 10/21/18 LIPID PROFILE (INCLUDES CHOLESTEROL, TRIGLYCERIDES, HDL, LDL) Result Value Ref Range Cholesterol 251 mg/dl Triglycerides 111 mg/dl HDL 63 mg/dl LDL, Calculated 166 mg/dl Chol/HDL Ratio 4.0 Fasting? YES Non HDL Cholesterol 188 mg/dl PSA SCREEN Result Value Ref Range PSA 0.4 0 - 4.5 ng/ml HEPATITIS C AB W REFLEX TO HCV RNA BY PCR Result Value Ref Range Hep C Ab w Rfx PCR HCSCR2 Negative Negative Assessment: HLD: Discussed possible initiation of statin. Patient would prefer to hold off until the fall to see whether his LDL comes down with lifestyle modification. This is his only cardiac risk factor and Ithink this approach is reasonable Knee pain: resolved. Plan: The previous medicines, as noted on the medication list, are being continued. Changes and refills are noted below. Luis was seen today for hyperlipidemia, knee pain and results. Diagnoses and all orders for this visit: Hyperlipidemia, unspecified hyperlipidemia type - will recheck lipids in 6 months Screening for colorectal cancer - COLONOSCOPY REQUEST - polyethylene glycol (GOLYTELY;NULYTELY) 236-22.74-6.74 -5.86 gram suspension; Instructions mailedonce procedure scheduled. Questions: [facility] Gastroenterology: [phone] or GI Doctor's Office. (Patient not taking: Reported on 11/03/2018) F/u 6 months for AWV lipids and BMP prior Today's [id number]-jl-[id number] visit time was 30 minutes with 20 minutes spent in counseling and/or coordination of care for the problems listed above. Patient Education Provided: on the various medical issues listed above Method: Verbal; therapy changes, test results, follow-up plans and/or patient instructions are documented on the after-visit summary. Taught to: Patient Barriers: None. The patient's understanding of the current medical regimen was reviewed at today's visit. The patient demonstrates adequate understanding. The patient's consistency in taking the medications as prescribed was also reviewed at today's visit. The patient reports taking the medicationsas prescribed. If medicines are not being taken as prescribed, the reasons for this change are documented above. Outcomes: verbalized understanding Portions of this document may have been prepared with speech recognition software or keyboard maintenance data analyst techniques. Minor irregularities or keyboarding misprints may be present Other Background Data: Patient Active Problem List Diagnosis Date Noted ??? Diverticulosis of large intestine without hemorrhage 04/23/2018 colonscopy 2013 (mild) ??? 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 Proteinuria 04/16/2013 ??? Benign essential hypertension 03/13/2013 ??? Degenerative joint disease involving multiple joints 03/13/2013 ??? Hyperlipidemia 03/13/2013 ??? Sensorineural hearing loss 11/02/2011 Past Medical History: Diagnosis Date ??? Arthritis neck ??? Benign essential hypertension 03/13/2013 Past Surgical History: Procedure Laterality Date ??? FACIAL COSMETIC SURGERY Had a lesion removed just above lip on 10/02/10 ??? HERNIA REPAIR ??? TONSILLECTOMY Family History Problem Relation Age of Onset ??? Prostate Cancer Brother 59 ??? Cancer Brother prostate ??? Dementia Mother Alzheimers ??? Heart Disease Father 61 ME ??? High Blood Pressure Father ??? High Cholesterol Father ??? Heart Disease Paternal Uncle ??? Diabetes Paternal Uncle Social History Tobacco Use ??? Smoking status: Never Smoker ??? Smokeless tobacco: Never Used ??? Tobacco comment: Quit as a teenager Substance Use Topics ??? Alcohol use: Yes Alcohol/week: 4.8 oz Types: 8 Glasses of wine per week ??? Drug use: No documented in this encounter Plan of Treatment Scheduled Orders Name Type Priority Associated Diagnoses Orde r Schedule COLONOSCOPY REQUEST GI Routine Screening for colorectal cancer Ordered: 11/03/2018 documented as of this encounter Goals Goal Patient Goal Type Associated Problems Recent Progress Patient-Stated? Author LDL < 100 Result Component Hyperlipidemia 113( 9 9:29 EDT) No Colleen Arora documented as of this encounter Visit Diagnoses Diagnosis Hyperlipidemia, unspecified hyperlipidemia type- Primary Screening for colorectal cancer Special screening for malignant neoplasms, colon documented in this encounter Discontinued Medications Medication Sig Discontinue Reason Start Date End Da te acetaminophen (TYLENOL) 325 mg tablet Take 650 mg by mouth every 4 hours as needed for Pain. Therapy completed 11/03/2018 ibuprofen (MOTRIN) 200 mg tablet Take 200 mg by mouth every 6 hours as needed for Pain. Therapy completed 11/03/2018 documented as of this encounter Care Teams Data Specialist Relationship Specialty Start Date End Date Ya Yee MD [address] [place] [phone] PCP - General 02/23/16 10/02/21 documented as of this encounter
--- OUTSIDE RECORDS SUMMARY | 2024-03-02 02:24 | XMS_ITS | Encounter Summary ---
Author Organization [facility] Address [address] [place] [address] Care Team Providers Care Street Sweeper Operator Name Role Phone Ya Yee MD Primary Care Provider [phone] [phone] Encounter Details Date Type Department Care Team (Late st Contact Info) Description 03/01/2020 Orders Only [facility] Adult Primary Care - [address] [address] Maryellen Cooper, AUTOMATIC [employer]IPPER [employer] STRIPPER [address] [place] [address] Essential tremor (Primary Dx) Social History Tobacco Use Types [...] have Coronavirus / COVID-19? No / Unsure 03/01/2020 7:19 EDT documented as of this encounter Functional [...] as of this encounter Progress Notes * Maryellen Cooper APRN - 03/01/2020 1000 EDT Labs ordered documented in this encounter Plan of Treatment Not on file documented as of this encounter Goals Goal Patient Goal Type Associated Problems Recent Progress Patient-Stated? Author LDL < 100 Result Component Hyperlipidemia 113( 9 9:29 EDT) No Colleen Arora documented as of this encounter Results * COMPLETE BLOOD COUNT (03/03/2020 8:25 EDT) WBC 5.32 4.00 - 10.40 K/cmm 03/03/2020 9:09 [facility] RBC 4.84 4.36 - 5.78 M/cmm 03/03/2020 9:09 [facility] Hemoglobin 15.7 13.8 - 17.3 gm/dL 03/03/2020 9:09 [facility] HCT 45.3 39.5 - 50.2 % 03/03/2020 9:09 [facility] MCV 94 81 - 95 fl 03/03/2020 9:09 [facility] MCH 32.4 27.6 - 33.0 pg 03/03/2020 9:09 [facility] MCHC 34.7 32.8 - 36.4 gm/dL 03/03/2020 9:09 [facility] RDW-CV 12.6 <14.2 % 03/03/2020 9:09 [facility] RDW-SD 43.3 <46.0 fl 03/03/2020 9:09 [facility] PLT 232 141 - 377 K/cmm 03/03/2020 9:09 [facility] MPV 11.0 9.5 - 12.7 fl 03/03/2020 9:09 [facility] Blood VENOUS BLOOD / Unknown Venipuncture / Unknown 03/03/2020 8:25 EDT 03/03/2020 8:25 EDT Maryellen Cooper [employer]AT[employer]IP[employer] HEMATOLOGY & PF4 ORD ERABLES Performing Organization Address [facility] Co de Phone Number [facility] [address] [place] [address] * FOLATE (03/03/2020 8:25 EDT) Folate 8.1 See Note ng/mL 03/03/2020 12:34 EDT [facility] Comment: Reference Ranges for Folate: Deficient: ?< 3.4 ng/mL Indeterminate: ??3.4 - 5.4 ng/mL Normal: ? > 5.4 ng/mL The results of this assay can be falsely elevated due to the consumption of Biotin. Blood VENOUS BLOOD / Unknown Venipuncture / Unknown 03/03/2020 8:25 EDT 03/03/2020 8:25 EDT Maryellen Cooper NP CHEMISTRY & BLOOD GA S ORDERABLES Performing Organization Address [facility] Co de Phone Number [facility] [address] [place] [address] * (ABNORMAL) VITAMIN B12 (03/03/2020 8:25 EDT) Vitamin B12 162(L) 211 - 911 pg/mL 03/03/2020 12:30 EDT [facility] Blood VENOUS BLOOD / Unknown Venipuncture / Unknown 03/03/2020 8:25 EDT 03/03/2020 8:25 EDT Maryellen Cooper NP CHEMISTRY & BLOOD GA S ORDERABLES Performing Organization Address [facility] Co de Phone Number [facility] [address] [place] [address] * COMPREHENSIVE METABOLIC PANEL (CMP) (03/03/2020 8:25 EDT) Sodium 139 136 - 145 mEq/L 03/03/2020 9:48 EDT [facility] Potassium 4.4 3.5 - 5.0 mEq/L 03/03/2020 9:48 [facility] Chloride 102 96 - 110 mEq/L 03/03/2020 9:48 [facility] CO2 Total 30 22 - 32 mEq/L 03/03/2020 9:48 [facility] Glucose 90 70 - 100 mg/dL 03/03/2020 9:48 [facility] BUN 12 10 - 26 mg/dL 03/03/2020 9:48 [facility] Creatinine 0.69 0.66 - 1.25 mg/dL 03/03/2020 9:48 [facility] eGFR 96 >60 mL/min/1.7 3m2 03/03/2020 9:48 [facility] Comment:eGFR calculated george maciel CKD-EPI equation for non- Americans. Multiply eGFR by 1.16 for patients. Total Protein 6.9 6.3 - 8.2 g/dL 03/03/2020 9:48 [facility] Albumin 4.3 3.4 - 4.9 g/dL 03/03/2020 9:48 [facility] Alkaline Phosphatase 58 38 - 126 U/L 03/03/2020 9:48 [facility] AST 24 15 - 46 U/L 03/03/2020 9:48 [facility] ALT 19 <50 U/L 03/03/2020 9:48 [facility] Bilirubin, Total 0.8 <1.4 mg/dL 03/03/20 20 9:48 [facility] Calcium 9.2 8.5 - 10.5 mg/dL 03/03/2020 9:48 [facility] Calculated Calcium 9.0 8.5 - 10.5 mg/dL 03/03/2020 9:48 [facility] Blood VENOUS BLOOD / Unknown Venipuncture / Unknown 03/03/2020 8:25 EDT 03/03/2020 8:25 EDT Maryellen Cooper NP CHEMISTRY & BLOOD GA S ORDERABLES [facility] [address] [place] [address] documented in this encounter Visit Diagnoses Diagnosis Essential tremor- Primary Essential and other specified forms of tremor documented in this encounter Care Teams Street Sweeper Operator Relationship Specialty Start Date End Date Ya Yee MD [address] [place] [phone] PCP - General 02/23/16 10/02/21 documented as of this encounter
--- OUTSIDE RECORDS SUMMARY | 2024-03-02 02:24 | XMS_ITS | Encounter Summary ---
Author Organization [facility] Address [address] [place] [address] Care Team Providers Care Telehealth Nurse Educator Name Role Phone Ya Yee MD Primary Care Provider [phone] [phone] Encounter Details Date Type Department Care Team (Late st Contact Info) Description 10/14/2020 13:30 EST Immunization [facility] - [facility] Mobile Testing [address] [place] [address] Social History Tobacco Use Types Packs/Day Years [...] Not on filedocumented in this encounter Orders Immunization/Injection Count Last Ordered Date First Ordered Date COVID-19 MRNA VACCINE (PFIZE R COVID-19) PF 0.3 ML IM (16 YRS+) 1 10/14/2020 documented in this encounter Care Teams Telehealth Nurse Educator Relationship Specialty Start Date End Date Ya Yee MD [address] [place] [phone] PCP - General 02/23/16 10/02/21 documented as of this encounter
--- OUTSIDE RECORDS SUMMARY | 2024-03-02 02:24 | XMS_ITS | Encounter Summary ---
Author Organization [facility] Address [address] [place] [address] Care Team Providers Care Leasing Manager Name Role Phone Ya Yee MD Primary Care Provider [phone] Reason for Visit * Reason Comments Cough Encounter Details Date Type Department Care Team (Latest Contact Info) Description 12/04/2019 14:00 EDT [facility] Primary Care [address] [place] [address] Maryellen Cooper, ELIANA [address] [place] [phone] Acute viral bronchiolitis (Primary Dx) Social History Tobacco Use Types [...] Sign Reading Time Taken Comments Blood Pressure - - Pulse 73 12/04/2019 1413 EDT Temperature 35.7 ??C (96.3 ??F) 12/04/2019 1413 EDT Respiratory Rate - - Oxygen Saturation 100% 12/04/2019 1413 EDT Inhaled Oxygen Concentration - - Weight - - Height - - Body Mass Index - - documented in this encounter Functional Status Functional [...] Dispensed Refills Start Date End Da te albuterol 90 mcg/actuation inhaler Inhale 2 Puffs as directed 3 times daily. 1 Inhaler 12/04/2019 04/22/2020 guaifenesin-codeine (GUAIFENESIN AC) 100-10 mg/5 mL liquid Take 5 mL by mouth every 4 hours as needed for Cough. Daily Max: 30 mL 120 mL 12/04/2019 04/22/2020 documented in this encounter Progress Notes * Maryellen Cooper, GRANT - 12/04/2019 1400 EDT Subjective: Patient ID: Luis Clayton is an 69 y.o. male. Chief Complaint Patient presents with ??? Cough HPI Luis Clayton is a 69 y.o. male with a PMHx of HTN and HLD who presents today to the [facility] for physical assessment for lingering cough. Patient had a telemed visit with his PCP earlier today with c/o cough for ~ 1 month. Originally wasa productive cough that is now dry. Denies any other URI- like symptoms and fever. Very distant smoking hx. No PMHx of asthma or COPD. Patient Active Problem List Diagnosis ??? Sensorineural hearing loss ??? Benign neoplasm of eyelid including canthus ??? Proteinuria ??? Benign essential hypertension ??? Degenerative joint disease involving multiple joints ??? Hyperlipidemia ??? Diverticulosis of large intestine without hemorrhage Past Medical History: Diagnosis Date ??? Arthritis neck ??? Benign essential hypertension 03/13/2013 Current Outpatient Medications on File Prior to Visit Medication Sig Dispense Refill ??? benzonatate (TESSALON) 100 mg capsule Take 1 Cap by mouth 3 times daily as needed for Cough. 30Cap 0 ??? Cholecalciferol, Vitamin D3, 400 unit tablet Take 1,000 Units by mouth daily. No current facility-administered medications on file prior to visit. No Known Allergies Social Social History Tobacco Use ??? Smoking status: Never Smoker ??? Smokeless tobacco: Never Used ??? Tobacco comment: Quit as a teenager Substance Use Topics ??? Alcohol use: Yes Alcohol/week: 8.0 standard drinks Types: 8 Glasses of wine per week ??? Drug use: No Review of Systems Constitutional: Positive for malaise/fatigue. Negative for chills, fever and weight loss. HENT: Negative for congestion, ear pain and sore throat. Respiratory: Positive for cough. Negative for hemoptysis, sputum production, shortness of breath and wheezing. Cardiovascular: Negative for chest pain and palpitations. Gastrointestinal: Negative for abdominal pain, nausea and vomiting. Neurological: Negative for dizziness, weakness and headaches. - See HPI Objective: Pulse 73 Temp 35.7 ??C (96.3 ??F) (Tympanic) SpO2 100% Physical Exam Constitutional: He is oriented to person, place, and time. He appears well- developed and well-nourished. No distress. HENT: Right Ear: Tympanic membrane normal. Left Ear: Tympanic membrane normal. Nose: Nose normal. Mouth/Throat: Mucous membranes are moist. Oropharynx is clear. Eyes: Pupils are equal, round, and reactive to light. Conjunctivae and EOM are normal. Neck: Normal range of motion. Neck supple. Cardiovascular: Normal rate, regular rhythm, normal heart sounds and intact distal pulses. Pulmonary/Chest: Effort normal and breath sounds normal. Musculoskeletal: Normal range of motion. Neurological: He is alert and oriented to person, place, and time. Skin: Skin is warm and dry. Psychiatric: He has a normal mood and affect. His behavior is normal. Judgment and thought content normal. Assessment/Plan: Persistent cough - possibly viral bronchitis or reactive airways syndrome - low/no suspicion for Covid-19 infection. Will not test today - albuterol inhaler to use TID - codeine/guaifenesin cough syrup PRN - f/u if symptoms do not resolve, worsen or develop a fever. Diagnoses and all orders for this visit: Acute viral bronchiolitis Other orders - guaifenesin-codeine (GUAIFENESIN AC) 100-10 mg/5 mL liquid; Take 5 mL by mouth every 4 hours as needed for Cough. Daily Max: 30 mL - albuterol 90 mcg/actuation inhaler; Inhale 2 Puffs as directed 3 times daily. Return if symptoms worsen or fail to improve, for cough. documented in this encounter Plan of Treatment Not on file documented as of this encounter Goals Goal Patient Goal Type Associated Problems Recent Progress Patient-Stated? Author LDL < 100 Result Component Hyperlipidemia 113( 9 9:29 EDT) Colleen Gracia documented as of this encounter Visit Diagnoses Diagnosis Acute viral bronchiolitis- Primary Acute bronchiolitis due to other infectious organisms documented in this encounter Care Teams Leasing Manager Relationship Specialty Start Date End Date Ya Yee MD [address] [place] [phone] PCP - General 02/23/16 10/02/21 documented as of this encounter"
--- OUTSIDE RECORDS SUMMARY | 2024-03-02 02:24 | XMS_ITS | Encounter Summary ---
Author Organization [facility] Address [address] [place] [address] Care Team Providers Care Handbook Writer Name Role Phone Ya Yee MD Primary Care Provider [phone] Reason for Visit * Reason Onset Date Comments Paperwork request 01/21/2020 Encounter Details Date Type Department Care Team (Late st Contact Info) Description 01/21/2020 Telephone [facility] Adult Primary Care - [address] [phone] Ya Yee MD [address] [place] [phone] Paperwork request Social History Tobacco Use Types Packs/Day Years [...] have Coronavirus / COVID-19? No / Unsure 01/19/2020 10:01 EDT documented as of this encounter Functional [...] encounter Miscellaneous Notes * Telephone Encounter - Deirdre Saravia - 02/08/2020 1007 EDT Per conversation with Dr Yee paperwork completed and mailed back to pt. * Telephone Encounter - Chetna Corrales - 01/21/2020 1533 EDT Pt dropped off [employer] know your numbers form to be signed with self addressed stamped envelope. Given to Gracy DOTSON documented in this encounter Plan of Treatment Not on file documented as of this encounter Goals Goal Patient Goal Type Associated Problems Recent Progress Patient-Stated? Author LDL < 100 Result Component Hyperlipidemia 113( 9 9:29 EDT) No Colleen Arora documented as of this encounter Visit Diagnoses Not on filedocumented in this encounter Care Teams Handbook Writer Relationship Specialty Start Date End Date Ya Yee MD [address] [place] [phone] PCP - General 02/23/16 10/02/21 documented as of this encounter
--- OUTSIDE RECORDS SUMMARY | 2024-03-02 02:24 | XMS_ITS | Encounter Summary ---
Author Organization [facility] Address [address] [place] [address] Care Team Providers Care Builder'S Labourer Name Role Phone Ya Yee MD Primary Care Provider [phone] Reason for Visit * Reason Comments Cerumen Impaction Encounter Details Date Type Department Care Team (Late st Contact Info) Description 01/14/2019 11:35 EDT Office Visit [facility] ENT- [address] [id number] Chetna Noble MD [address] [place] [address], [address] [place] [address] Impacted cerumen of both ears (Primary Dx) Social History Tobacco Use Types [...] as of this encounter Progress Notes * Chetna Noble MD, - 01/14/2019 1135 EDT No problems since his last visit. ENT Cerumenectomy Indications for Procedure: Obstructive copious cerumen that cannot be removed safely without magnification and multiple instruments. Careful examination of the ear and removal of cerumen was done on both ears using the operating microscope and microinstruments/suction. The patient tolerated this procedure well. Complications: None Findings: canals and TMs wnl once cerumen removed, less cerumen than usual Follow up in 3 months documented in this encounter Plan of Treatment Not on file documented as of this encounter Goals Goal Patient Goal Type Associated Problems Recent Progress Patient-Stated? Author LDL < 100 Result Component Hyperlipidemia 113( 9 9:29 EDT) No Colleen Arora documented as of this encounter Visit Diagnoses Diagnosis Impacted cerumen of both ears- Primary Impacted cerumen documented in this encounter Care Teams Builder'S Labourer Relationship Specialty Start Date End Date Ya Yee MD [address] [place] [phone] PCP - General 02/23/16 10/02/21 documented as of this encounter
--- OUTSIDE RECORDS SUMMARY | 2024-03-02 02:24 | XMS_ITS | Encounter Summary ---
Author Organization [facility] Address [address] [place] [address] Care Team Providers Care Frame And Scrap Crusher Name Role Phone Ya Yee MD Primary Care Provider [phone] Reason for Visit * Reason Comments Abdominal Pain Encounter Details Date Type Department Care Team (Late st Contact Info) Description 06/07/2020 9:26 EDT - 06/07/2020 15:03 EDT Hospital Encounter [facility] - [address] [id number] Alysha Israel MD [address] [place] [id number] Abdominal pain, unspecified abdominal location (Primary Dx) Discharge Disposition: Home or Self Care Social History Tobacco Use Types Packs/Day Years [...] Sign Reading Time Taken Comments Blood Pressure 167/79 06/07/2020 1353 EDT Pulse 65 06/07/2020 1353 EDT Temperature 35.9 ??C (96.6 ??F) 06/07/2020 1353 EDT Respiratory Rate 16 06/07/2020 1354 EDT Oxygen Saturation 100% 06/07/2020 1353 EDT Inhaled [...] No 04/23/2018 documented as of this encounter Discharge Instructions * Discharge Instructions* Alysha Israel MD - 06/07/2020 14:56 EDT Images from the original note were not included. All of your tests were normal. The pain could be from dietary changes, but I think that it is important that you talk with Dr. Yee about your symptoms. When should you call for help? Call 911 anytime you think you may need emergency care. For example, call if: ? You passed out (lost consciousness). ? You pass maroon or very bloody stools. ? You vomit blood or what looks like coffee grounds. ? You have new, severe belly pain. Call your doctor now or seek immediate medical care if: ? Your pain gets worse, especially if it becomes focused in one area of your belly. ? You have a new or higher fever. ? Your stools are black and look like tar, or they have streaks of blood. ? You have symptoms of a urinary tract infection. These may include: ? Pain when you urinate. ? Urinating more often than usual. ? Blood in your urine. ? You are dizzy or lightheaded, or you feel like you may faint. ?? documented in this encounter Medications at Time of Discharge Medication Sig Dispensed Refills Start Date End Date Cholecalciferol, Vitamin D3, 400 unit tablet Take 1,000 Units by mouth daily. cyanocobalamin (VITAMIN B-12) 500 mcg tablet Take 500 mcg by mouth daily. documented as of this encounter Discharge Disposition Disposition Code Departure Means Destination Home or Self Jail documented in this encounter ED Notes * Alysha Israel MD - 06/07/2020 1016 EDT Images from the original note were not included. DOS: 06/07/2020 Chief Complaint Patient presents with ??? Abdominal Pain The patient is a 69 y.o. male who presents today with Abdominal Pain HPI Has had abdominal pain on and off for a while Got worse 4 days [employer]IL [employer] Some of the pain has been on the L side Also some supra pubic pain Feels usually just sore but sometimes the pain is sharp. No fever No pain with voiding No diarrhea Appetite has been less Last BM was this AM, not loose or bloody Has had mild nausea No emesis Taking PO makes the pain recur Not awakening the pt in the middle of the night Has had a lot of ructus Review of Systems Constitutional: Positive for fatigue. Negative for fever. HENT: Negative for congestion and sore throat. Respiratory: Negative for cough and shortness of breath. Cardiovascular: Negative for chest pain and leg swelling. Gastrointestinal: Positive for abdominal pain and nausea. Negative for diarrhea and vomiting. Genitourinary: Negative for dysuria, scrotal swelling and testicular pain. Musculoskeletal: Negative for back pain. Skin: Negative for rash. Neurological: Negative for light-headedness and headaches. No current facility-administered medications for this encounter. Current Outpatient Medications Medication Sig Dispense Refill ??? Cholecalciferol, Vitamin D3, 400 unit tablet Take 1,000 Units by mouth daily. ??? cyanocobalamin (VITAMIN B-12) 500 mcg tablet Take 500 mcg by mouth daily. No Known Allergies Patient Active Problem List Diagnosis Date Noted ??? Diverticulosis of large intestine without hemorrhage 04/23/2018 colonscopy 2013 (mild) ??? 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 Proteinuria 04/16/2013 ??? Benign essential hypertension 03/13/2013 ??? Degenerative joint disease involving multiple joints 03/13/2013 ??? Hyperlipidemia 03/13/2013 ??? Sensorineural hearing loss 11/02/2011 Past Medical History: Diagnosis Date ??? Arthritis neck ??? Benign essential hypertension 03/13/2013 Social History Tobacco Use ??? Smoking status: Never Smoker ??? Smokeless tobacco: Never Used ??? Tobacco comment: Quit as a teenager Substance Use Topics ??? Alcohol use: Yes Alcohol/week: 8.0 standard drinks Types: 8 Glasses of wine per week Frequency: 4 or more times a week Drinks per session: 1 or 2 Binge frequency: Never ??? Drug use: No Family History Problem Relation Age of Onset ??? Prostate Cancer Brother 59 ??? Cancer Brother prostate ??? Dementia Mother Alzheimers ??? Heart Disease Father 61 MD ??? High Blood Pressure Father ??? High Cholesterol Father ??? Heart Disease Paternal Uncle ??? Diabetes Paternal Uncle BP (!) 167/79 (BP Cuff Location: Right arm, BP Patient Position: Semi fowlers) Pulse 65 Temp 96.6 ??F (35.9 ??C) (Tympanic) Resp 16 SpO2 100% Physical Exam Vitals signs and nursing note reviewed. Constitutional: Appearance: He is well-developed. HENT: Right Ear: Tympanic membrane normal. Left Ear: Tympanic membrane normal. Nose: Nose normal. Eyes: General: No scleral icterus. Neck: Musculoskeletal: Neck supple. Cardiovascular: Rate and Rhythm: Normal rate and regular rhythm. Heart sounds: Normal heart sounds. Pulmonary: Breath sounds: Normal breath sounds. No wheezing, rhonchi or rales. Chest: Chest wall: Tenderness present. Abdominal: General: Bowel sounds are normal. Palpations: There is no mass or pulsatile mass. Tenderness: There is generalized abdominal tenderness. There is no guarding or rebound. Hernia: No hernia is present. Comments: There is generalized tenderness with increased tenderness in the suprapubic area Musculoskeletal: Normal range of motion. Lymphadenopathy: Cervical: No cervical adenopathy. Skin: Findings: No rash. Neurological: Mental Status: He is alert and oriented to person, place, and time. Consult orders: None PCP: Ya Yee Results for orders placed or performed during the hospital encounter of 06/07/20 POCT CSN BARCODE URINE DIPSTICK Result Value Ref Range Hold Hold COMPLETE BLOOD COUNT AND DIFFERENTIAL Result Value Ref Range WBC 6.41 4.00 - 10.40 K/cmm RBC 4.63 4.36 - 5.78 M/cmm Hemoglobin 15.1 13.8 - 17.3 gm/dL HCT 43.0 39.5 - 50.2 % MCV 93 81 - 95 fl MCH 32.6 27.6 - 33.0 pg MCHC 35.1 32.8 - 36.4 gm/dL RDW-CV 12.4 <14.2 % RDW-SD 42.5 <46.0 fl PLT 233 141 - 377 K/cmm MPV 11.0 9.5 - 12.7 fl Neutrophils 73.2 % Lymphocytes 14.8 % Monocytes 9.2 % Eosinophils 1.7 % Basophils 0.6 % Immature Grans 0.5 % Absolute Neutrophils 4.69 2.20 - 8.85 K/cmm Absolute Lymphocytes 0.95 (L) 1.09 - 3.30 K/cmm Absolute Monocytes 0.59 0.10 - 0.80 K/cmm Absolute Eosinophils 0.11 0.03 - 0.61 K/cmm Absolute Basophils 0.04 0.01 - 0.11 K/cmm Absolute Immature Grans 0.03 0.00 - 0.06 K/cmm Type of Differential: Auto COMPREHENSIVE METABOLIC PANEL (CMP) Result Value Ref Range Sodium 144 136 - 145 mEq/L Potassium 4.4 3.5 - 5.0 mEq/L Chloride 104 96 - 110 mEq/L CO2 Total 32 22 - 32 mEq/L Glucose 90 70 - 100 mg/dL BUN 14 10 - 26 mg/dL Creatinine 0.77 0.66 - 1.25 mg/dL eGFR 91 >60 mL/min/1.73m2 Total Protein 6.7 6.3 - 8.2 g/dL Albumin 4.3 3.4 - 4.9 g/dL Alkaline Phosphatase 64 38 - 126 U/L AST 28 15 - 46 U/L ALT 24 <50 U/L Bilirubin, Total 0.7 <1.4 mg/dL Calcium 9.0 8.5 - 10.5 mg/dL Calculated Calcium 8.8 8.5 - 10.5 mg/dL LIPASE Result Value Ref Range Lipase 110 <251 U/L POCT URINE DIPSTICK, CLINITEK Result Value Ref Range Color, UA Yellow Yellow Clarity, UA Clear Clear Glucose, UA Negative Negative mg/dL Bilirubin, UA Negative Negative Ketones, UA Negative Negative mg/dL Specific Richey, Urine 1.020 1.001 - 1.035 Blood, UA Negative Negative pH, UA 6.5 <=8 Protein, UA Negative Negative mg/dL Urobilinogen, UA 0.2 0.2 - 1.0 EU/dL Nitrite, UA Negative Negative Leuk Esterase Negative Negative Tech ID [id number] LAB COMMENT (CLINITEK, UR) Test performed at Urgent Care Radiology orders: XR CHEST [address] ABDOMEN PELVIS W CONTRAST Imaging Results CT ABDOMEN PELVIS W CONTRAST (Final result) Result time 06/07/20 14:26:35 Final result Impression: 1. No acute pathology abdomen pelvis. 2. Sigmoid diverticulosis. Narrative: CT ABDOMEN PELVIS W CONTRAST 06/07/2020 1:45 PM Signs and Symptoms/Comments: Abdominal pain, acute, nonlocalized Technique: CT of the abdomen and pelvis was performed following the administration intravenous contrast; coronal and sagittal multiplanar reconstructions generated. Comparison: 08/16/[address] Findings: Lower chest: Normal Hepatobiliary: Normal. No biliary ductal dilatation or signs of gallbladder inflammation Spleen, pancreas, adrenal glands: Normal. No peripancreatic fat stranding or pancreatic ductal dilatation. Kidneys, ureters, bladder: Kidneys enhance normally. Scattered small probable cysts noted. No hydronephrosis. No visible calculi on this enhanced CT. Ureters of normal caliber. Bladder grossly normal. Prostate, seminal vesicles: No significant CT finding. Bowel: No bowel obstruction or wall thickening. Normal appendix. Normal terminal ileum relatively mild sigmoid diverticulosis without CT signs of acute diverticulitis. Peritoneal cavity / Subperitoneal space: No free fluid or fluid collection. No free air. Lymphovascular: Only minimal atherosclerotic changes. No aneurysm. Visceral arteries patent. No adenopathy abdomen or pelvis. Abdominal wall: Free of hernias. Musculoskeletal: Mild degenerative changes of the spine. No compression deformities. Small peripherally corticated lesion right iliac bone unchanged, benign. Scattered small bone islands also noted. Solar Sales Associate: No additional findings. XR CHEST 2 VIEWS (Final result) Result time 06/07/20 13:04:59 Final result Impression: No evidence of rib fracture. I have personally reviewed the images and the above interpretation and agree with the findings. Narrative: XR CHEST 2 VIEWS 06/07/2020 10:40 AM CLINICAL HISTORY/COMMENTS: upper abdominal pain with pain in the L flank- rib fx, pathological fx, effusion COMPARISON: Radiograph the chest 09/03/2016, 06/09/2009. TECHNIQUE: Frontal and lateral views of the chest were performed. FINDINGS: Soft tissues and extrathoracic findings: No abnormalities. Bones: Normal for age. No evident fracture, although fracture can be radiographed occult. Cardiac and mediastinal contours: Normal. Lungs: Normal. Pleura/diaphragms: No significant abnormalities. Preliminary result Impression: No evidence of rib fracture. Narrative: PRELIMINARY RESIDENT REPORT XR CHEST 2 VIEWS 06/07/2020 10:40 AM CLINICAL HISTORY/COMMENTS: upper abdominal pain with pain in the L flank- rib fx, pathological fx, effusion COMPARISON: Radiograph the chest 09/03/2016, 06/09/2009. TECHNIQUE: Frontal and lateral views of the chest were performed. FINDINGS: Soft tissues and extrathoracic findings: No abnormalities. Bones: Normal for age. No evident fracture, although fracture can be radiographed occult. Cardiac and mediastinal contours: Normal. Lungs: Normal. Pleura/diaphragms: No significant abnormalities. 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 Provider Interpretation to follow. Compared to ECG 05/12/1999 09:34:00 Sinus arrhythmia no longer present I reviewed the tracing and have either agreed or edited the findings in this report. Electronically Signed On 06-07-2020 10:22:00 EDT by ALYSHA ISRAEL MD. Procedures URGENT CARE COURSE A medical screening exam was performed. Mr. Clayton is a 69 yo male with hx of HTN, HLD and diverticulosis who presents with 5 days of abdominal pain that has not subsided or improved. Seems to be worse with taking PO. No fever or chills, no diarrhea or bloody stool. No emesis. On exam, There is pain along the L flank over a lower rib. The abdomen is diffusely tender with I\ncreased tenderness lizama prapubic area. Chest x-ray, EKG, labs are all WNL. I engaged in shared decision making with the pt re: going home with watchful waiting and RTC if no improvement in 3-5 days or sooner for worsening sx vs CT scan to r/o treatable etiology. Pt prefers to proceed with CT scan. This was negative and result was d/w pt. He will f/up with his PCP if sx persist beyond a few more days. ASSESSMENT AND PLAN Final diagnoses: Abdominal pain, unspecified abdominal location No supervision required. DISPOSITION: Discharged The patient's pain was managed to an adequate level weighing risk vs. benefit of further medications. Upon departure from [facility], the patient's pain was 4 on a zero to ten scale. Any further pain treatment will be at the discretion of the provider following up with the patient based on their clinical assessment . Condition at departure from the [facility] : Stable MDM 06/07/2020 14:59 * Forest Lucas MA - 06/07/2020 0950 EDT 12 Lead EKG Performed by FOREST LUCAS MA and shown to Alysha Israel MD. * Lashay Peguero RN - 06/07/2020 0935 EDT Verified name and Patient reports 2 weeks of abdominal discomfort, increased gas and flatulenceand burping. 4 days ago the abdominal pain worsened and has been located in the LLQ. Had normal BM today, Reports nausea, denies Dysuria , requested urine sample * Nannette Wallace, RN - 06/07/2020 0926 EDT Patient denies dyspnea, cough, fever, sore throat, rhinorrhea, chills, rigors, new onset loss of smell/taste, headache, muscle pain, fatigue. No exposure to a person with a known positive covid test. 1. ???Are you or anyone in your household awaiting the results of a swab for COVID-19 infection??? -NO 2. ???Are you or anyone in your household currently quarantined??? -NO documented in this encounter Plan of Treatment Not on file documented as of this encounter Goals Goal Patient Goal Type Associated Problems Recent Progress Patient-Stated? Author LDL < 100 Result Component Hyperlipidemia 113( 9 9:29 EDT) No Colleen Arora documented as of this encounter Procedures Procedure Name Priority Date/Time Associated Diagnosis Comments CT ABDOMEN PELVIS W CONTRAST STAT 06/07/2020 14:08 EDT COMPLETE BLOOD COUNT AND DIFFERENTIAL STAT 06/07/2020 10:49 EDT Abdominal pain, unspecified abdominal location LIPASE STAT 06/07/2020 10:49 EDT Abdominal pain, unspecified abdominal location COMPREHENSIVE METABOLIC PANEL (CMP) STAT 06/07/2020 10:49 EDT Abdominal pain, unspecified abdominal location XR CHEST 2 VIEWS STAT 06/07/2020 10:4 3 EDT ECG REPORT - SCANNED 06/07/2020 10:27 EDT POCT CSN BARCODE URINE DIPSTICK STAT 06/07/2020 10:26 EDT Abdominal pain, unspecified abdominal location POCT URINE CLINITEK (DIPSTICK) - DOES NOT REFLEX STAT 06/07/2020 10:17 EDT Abdominal pain, unspecified abdominal location POCT URINE DIPSTICK, CLINITEK STAT 06/07/2020 10:17 EDT Abdominal pain, unspecified abdominal location EKG 12-LEAD STAT 06/07/2020 9:45 EDT documented in this encounter Results * CT ABDOMEN PELVIS W CONTRAST (06/07/2020 14:08 EDT) Anatomical Region Laterality Modality Body, Abdomen, Pelvis, Abdomen and Pelvis Computed Tomography 06/07/2020 14:2 6 EDT Impressions 06/07/2020 14:26 EDT 1. No acute pathology abdomen pelvis. 2. Sigmoid diverticulosis. Narrative 06/07/2020 14:[address] ABDOMEN PELVIS W CONTRAST ??06/07/2020 1:45 PM Signs and Symptoms/Comments: ?? Abdominal pain, acute, nonlocalized Technique: CT of the abdomen and pelvis was performed following the administration intravenous contrast; coronal and sagittal multiplanar reconstructions generated. Comparison: 08/16/[address] Findings: Lower chest: Normal Hepatobiliary: Normal. No biliary ductal dilatation or signs of gallbladder inflammation Spleen, pancreas, adrenal glands: Normal. No peripancreatic fat stranding or pancreatic ductal dilatation. Kidneys, ureters, bladder: Kidneys enhance normally. Scattered small probable cysts noted. No hydronephrosis. No visible calculi on this enhanced CT. Ureters of normal caliber. Bladder grossly normal. Prostate, seminal vesicles: No significant CT finding. Bowel: No bowel obstruction or wall thickening. Normal appendix. Normal terminal ileum relatively mild sigmoid diverticulosis without CT signs of acute diverticulitis. Peritoneal cavity / Subperitoneal space: No free fluid or fluid collection. No free air. Lymphovascular: Only minimal atherosclerotic changes. No aneurysm. Visceral arteries patent. No adenopathy abdomen or pelvis. Abdominal wall: Free of hernias. Musculoskeletal: Mild degenerative changes of the spine. No compression deformities. Small peripherally corticated lesion right iliac bone unchanged, benign. Scattered small bone islands also noted. Solar Sales Associate: No additional findings. Procedure Note Van Ferraro MD - 06/07/2020 CT ABDOMEN PELVIS W CONTRAST 06/07/2020 1:45 PM Signs and Symptoms/Comments: Abdominal pain, acute, nonlocalized Technique: CT of the abdomen and pelvis was performed following the administrationintravenous contrast; coronal and sagittal multiplanar reconstructionsgenerated. Comparison: 08/16/[address] Findings: Lower chest: Normal Hepatobiliary: Normal. No biliary ductal dilatation or signs ofgallbladder inflammation Spleen, pancreas, adrenal glands: Normal. No peripancreatic fat strandingor pancreatic ductal dilatation. Kidneys, ureters, bladder: Kidneys enhance normally. Scattered smallprobable cysts noted. No hydronephrosis. No visible calculi on thisenhanced CT. Ureters of normal caliber. Bladder grossly normal. Prostate, seminal vesicles: No significant CT finding. Bowel: No bowel obstruction or wall thickening. Normal appendix. Normalterminal ileum relatively mild sigmoid diverticulosis without CT signs ofacute diverticulitis. Peritoneal cavity / Subperitoneal space: No free fluid or fluidcollection. No free air. Lymphovascular: Only minimal atherosclerotic changes. No aneurysm.Visceral arteries patent. No adenopathy abdomen or pelvis. Abdominal wall: Free of hernias. Musculoskeletal: Mild degenerative changes of the spine. No compressiondeformities. Small peripherally corticated lesion right iliac boneunchanged, benign. Scattered small bone islands also noted. Solar Sales Associate: No additional findings. IMPRESSION 1. No acute pathology abdomen pelvis. 2. Sigmoid diverticulosis. Alysha Israel MD IMG CT ORDERABLE S * LIPASE (06/07/2020 10:49 EDT) Lipase 110 <251 U/L 06/07/2020 12:35 EDT [facility] Blood VENOUS BLOOD / Unknown Venipuncture / Unknown 06/07/2020 10:49 EDT 06/07/2020 12:08 EDT Alyhsa Israel MD CHEMISTRY & BLOO D GAS ORDERABLES [facility] [address] [place] [address] * COMPREHENSIVE METABOLIC PANEL (CMP) (06/07/2020 10:49 ED) Sodium 144 136 - 145 mEq/L 06/07/2020 12:35 [facility] Potassium 4.4 3.5 - 5.0 mEq/L 06/07/2020 12:35 [facility] Chloride 104 96 - 110 mEq/L 06/07/2020 12:35 [facility] CO2 Total 32 22 - 32 mEq/L 06/07/2020 12:35 [facility] Glucose 90 70 - 100 mg/dL 06/07/2020 12:35 [facility] BUN 14 10 - 26 mg/dL 06/07/2020 12:35 [facility] Creatinine 0.77 0.66 - 1.25 mg/dL 06/07/2020 12:35 [facility] eGFR 91 >60 mL/min/1.7 3m2 06/07/2020 12:35 [facility] Comment:eGFR calculated george maciel CKD-EPI equation for non- Americans. Multiply eGFR by 1.16 for patients. Total Protein 6.7 6.3 - 8.2 g/dL 06/07/2020 12:35 [facility] Albumin 4.3 3.4 - 4.9 g/dL 06/07/2020 12:35 [facility] Alkaline Phosphatase 64 38 - 126 U/L 06/07/2020 12:35 [facility] AST 28 15 - 46 U/L 06/07/2020 12:35 [facility] ALT 24 <50 U/L 06/07/2020 12:35 [facility] Bilirubin, Total 0.7 <1.4 mg/dL 06/07/20 20 12:35 [facility] Calcium 9.0 8.5 - 10.5 mg/dL 06/07/2020 12:35 [facility] Calculated Calcium 8.8 8.5 - 10.5 mg/dL 06/07/2020 12:35 [facility] Blood VENOUS BLOOD / Unknown Venipuncture / Unknown 06/07/2020 10:49 EDT 06/07/2020 12:08 EDT Alysha Israel MD CHEMISTRY & BLOO D GAS ORDERABLES [facility] [address] [place] [address] * (ABNORMAL) COMPLETE BLOOD COUNT AND DIFFERENTIAL (06/07/2020 10:49 EDT) WBC 6.41 4.00 - 10.40 K/cmm 06/07/2020 12:17 [facility] RBC 4.63 4.36 - 5.78 M/cmm 06/07/2020 12:17 [facility] Hemoglobin 15.1 13.8 - 17.3 gm/dL 06/07/2020 12:17 [facility] HCT 43.0 39.5 - 50.2 % 06/07/2020 12:17 [facility] MCV 93 81 - 95 fl 06/07/2020 12:17 [facility] MCH 32.6 27.6 - 33.0 pg 06/07/2020 12:17 [facility] MCHC 35.1 32.8 - 36.4 gm/dL 06/07/2020 12:17 [facility] RDW-CV 12.4 <14.2 % 06/07/2020 12:17 [facility] RDW-SD 42.5 <46.0 fl 06/07/2020 12:17 [facility] PLT 233 141 - 377 K/cmm 06/07/2020 12:17 [facility] MPV 11.0 9.5 - 12.7 fl 06/07/2020 12:17 [facility] % Neutrophils 73.2 % 06/07/2020 12:17 [facility] % Lymphocytes 14.8 % 06/07/2020 12:17 [facility] % Monocytes 9.2 % 06/07/2020 12:17 [facility] % Eosinophils 1.7 % 06/07/2020 12:17 EDT [facility] % Basophils 0.6 % 06/07/2020 12:17 [facility] % Immature Grans 0.5 % 06/07/20 12:17 [facility] Absolute Neutrophils 4.69 2.20 - 8.85 K/cmm 06/07/2020 12:17 [facility] Absolute Lymphocytes 0.95(L) 1.09 - 3.30 K/cmm 06/07/2020 12:17 [facility] Absolute Monocytes 0.59 0.10 - 0.80 K/cmm 06/07/2020 12:17 [facility] Absolute Eosinophils 0.11 0.03 - 0.61 K/cmm 06/07/2020 12:17 [facility] ABS Basophils 0.04 0.01 - 0.11 K/cmm 06/07/2020 12:17 [facility] Absolute Immature Grans 0.03 0.00 - 0.06 K/cmm 06/07/2020 12:17 [facility] Type of Differential: Auto 06/07/2020 12:17 [facility] Blood VENOUS BLOOD / Unknown Venipuncture / Unknown 06/07/2020 10:49 EDT 06/07/2020 12:08 EDT Alysha Israel MD PACKAGES & DNA P DESHAWN ORDERABLES Performing Organization Address City/State/[facility] Co de Phone Number [facility] [address] [place] [address] * XR CHEST 2 VIEWS (06/07/2020 10:43 EDT) Anatomical Region Laterality Modality Computed Radiogr aphy 06/07/2020 13:0 4 EDT Impressions 06/07/2020 13:04 EDT No evidence of rib fracture. I have personally reviewed the images and the above interpretation and agree with the findings. Narrative 06/07/2020 13:04 EDT XR CHEST 2 VIEWS ??06/07/2020 10:40 AM CLINICAL HISTORY/COMMENTS: upper abdominal pain with pain in the L flank- rib fx, pathological fx, effusion COMPARISON: Radiograph the chest 09/03/2016, 06/09/2009. TECHNIQUE: Frontal and lateral views of the chest were performed. FINDINGS: Soft tissues and extrathoracic findings: ??No abnormalities. Bones: Normal for age. No evident fracture, although fracture can be radiographed occult. Cardiac and mediastinal contours: Normal. Lungs: Normal. ?? Pleura/diaphragms: No significant abnormalities. Procedure Note Carlton Bhakta MD - 06/07/2020 XR CHEST 2 VIEWS 06/07/2020 10:40 AM CLINICAL HISTORY/COMMENTS: upper abdominal pain with pain in the L flank- rib fx, pathological fx,effusion COMPARISON: Radiograph the chest 09/03/2016, 06/09/2009. TECHNIQUE: Frontal and lateral views of the chest were performed. FINDINGS: Soft tissues and extrathoracic findings: No abnormalities. Bones: Normal for age. No evident fracture, although fracture can beradiographed occult. Cardiac and mediastinal contours: Normal. Lungs: Normal. Pleura/diaphragms: No significant abnormalities. IMPRESSION No evidence of rib fracture. I have personally reviewed the images and the above interpretation andagree with the findings. Alysha Israel MD IMG DIAGNOSTIC I MAGING ORDERABLES * ECG REPORT - SCANNED (06/07/2020 10:27 EDT) 06/07/2020 10:2 7 EDT Scan 2 Repair Technician PROCEDURE/MINOR KANWAL GICAL ORDERABLES * POCT CSN BARCODE URINE DIPSTICK (06/07/2020 10:26 EDT) Hold Hold 06/07/2020 11:30 EDT [facility] Urine URINE SPECIMEN COLLECTION, CLEAN CATCH / Unknown Urine Collect / Unknown 06/07/2020 10:26 EDT 06/07/2020 10:26 EDT Alysha Israel MD LAB INFO SERVICE AND SUPPORT & PHONE RESULT [facility] [address] [place] [address] * POCT URINE DIPSTICK, CLINITEK (06/07/2020 10:17 EDT) Color, UA Yellow Yellow 06/07/2020 10:23 [facility] Clarity, UA Clear Clear 06/07/2020 10:23 [facility] Glucose, UA Negative Negative mg/dL 06/07/2020 10:23 [facility] Bilirubin, UA Negative Negative 06/07/2020 10:23 [facility] Ketones, UA Negative Negative mg/dL 06/07/2020 10:23 [facility] Specific Richey, Urine 1.020 1.001 - 1.035 06/07/2020 10:23 [facility] Blood, UA Negative Negative 06/07/2020 10:23 [facility] pH, UA 6.5 <=8 06/07/2020 10:23 [facility] Protein, UA Negative Negative mg/dL 06/07/2020 10:23 [facility] Urobilinogen, UA 0.2 0.2 - 1.0 EU/dL 06/07/2020 10:23 [facility] Nitrite, UA Negative Negative 06/07/2020 10:23 [facility] Leuk Esterase Negative Negative 06/07/2020 10:23 [facility] car spotter ID [id number] 06/07/2020 10:23 [facility] HN LAB COMMENT (CLINITEK, UR) Test performed at Urgent Care 06/07/2020 10:23 [facility] Urine URINE SPECIMEN COLLECTION, CLEAN CATCH / Unknown 06/07/2020 10:17 EDT 06/07/2020 10:23 EDT Alysha Israel MD POINT OF CARE TE ST ORDERABLES [facility] [address] [place] [address] * EKG 12-LEAD (06/07/2020 9:45 EDT) 06/07/2020 9:45 EDT Narrative [facility] EKG - 06/07/2020 10:22 EDT ? PC Site ? Test Date: ?2020-06-07 Pat Name: ? LUIS CLAYTON ?Department: ?? [facility] ? Room: ? 03 Gender: ? Male ? Cloud Infrastructure Architect: ?? : ?[id number] ? Requested By: JHONATAN STEINBERG VIRY Order Number: [id number] ? Reading MD: ?? ALYSHA ISRAEL MD ? Measurements Intervals ?Lewis ? Rate: ? 73 ? P: ?38 [place]: ? 140 ?QRS: ?72 QRSD: ? 102 ?T: ?70 QT: ? 387 ? QTc: ?428 ? Interpretive Statements SINUS RHYTHM Automated Interpretation. ??Provider Interpretation to follow. Compared to ECG 05/12/1999 09:34:00 Sinus arrhythmia no longer present I reviewed the tracing and have either agreed or edited the findings in this report. Electronically Signed On 06-07-2020 10:22:00 EDT by ALYSHA ISRAEL MD. Procedure Note Alysha Israel MD - 06/07/2020 Site Test Date: 2020-06-07 Pat Name: LUIS CLAYTON Department: [facility] Room: 03 Gender: Male Cloud Infrastructure Architect: : [id number] Requested By: JHONATAN DE LA TORRE Order Number: [id number] Reading MD: ALYSHA ISRAEL MD Measurements Intervals Lewis Rate: 73 P: 38 [place]: 140 QRS: 72 QRSD: 102 T: 70 QT: 387 QTc: 428 Interpretive Statements SINUS RHYTHM Automated Interpretation. Provider Interpretation to follow. Compared to ECG 05/12/1999 09:34:00 Sinus arrhythmia no longer present I reviewed the tracing and have either agreed or edited the findings inthis report. Electronically Signed On 06-07-2020 10:22:00 EDT by PALOMA ESCAMILLA. Alysha Israel MD CARDIAC ECG MEAGAN CHAPPELL [facility] EKG documented in this encounter Visit Diagnoses Diagnosis Abdominal pain, unspecified abdominal location- Primary documented in this encounter Administered Medications Inactive Administered Medications - up to 3 most recent administrations Medication Order MAR Action Action Date Dose Rate Site iohexoL (OMNIPAQUE 350) solution 100 mL 100 mL, intravenous, Once in imaging, 1 dose, Starting on 06/07/20 at 1356, Until 06/07/20 at 1408, Routine, Imaging Protocol Orders Given 06/07/2020 14:08 EDT 100 mL documented in this encounter Historical Medications * This list may reflect changes made after this encounter. Medication Sig Dispensed Refills Start Date End Date cyanocobalamin (VITAMIN B-12) 500 mcg tablet Take 500 mcg by mouth daily. added in this encounter Active and Recently Administered Medications Times are shown in EDT. Scheduled Medication Order 06/05/2020 06/06/2020 06/07/2020 iohexoL (OMNIPAQUE 350) solution 100 mL (COMPLETED) 100 mL, intravenous, Once in imaging, 1 dose, Starting on 06/07/20 at 1356, Until 06/07/20 at 1408, Routine, Imaging Protocol Orders 1408 (Given - Provid er: Christie Brooks) documented in this encounter Orders Nursing Count Last Ordered Date First Orde red Date INSERT SALINE LOCK 1 06/07/2020 documented in this encounter Care Teams Frame And Scrap Crusher Relationship Specialty Start Date End Date Ya Yee MD [address] [place] [phone] PCP - General 02/23/16 10/02/21 documented as of this encounter
--- OUTSIDE RECORDS SUMMARY | 2024-03-02 02:24 | XMS_ITS | Encounter Summary ---
Author Organization [facility] Address [address] [place] [address] Care Team Providers Care Urban Renewal Manager Name Role Phone Ya Yee MD Primary Care Provider [phone] Reason for Visit * Reason Comments Follow-up Telemedicine Video Visit * Consult (Routine/Next Available) - Order Cancelled Specialty Diagnoses / Procedures Referred By Francisco mcdonald Referred To Contact Neurology Diagnoses Tremor Ya Yee MD [address] [place] [phone] Yohan Cabezas MD [address] [place] [phone] Referral ID Status Reason Start Date Expiration Date Visits Requested Visits Authorized [id number] Order Cancelled Specialty Services Required 03/24/2020 1 1 Encounter Details Date Type Department Care Team (Late st Contact Info) Description 04/20/2020 16:00 EDT Telemedicine [facility] - [address] [id number] Yohan Cabezas MD [address] [place] [phone] Action tremor (Primary Dx) Social History Tobacco Use [...] have Coronavirus / COVID-19? No / Unsure 08/01/2020 10:38 EST documented as of this encounter Functional Status [...] as of this encounter Progress Notes * Yohan Cabezas MD - 04/20/2020 1600 EDT [facility] ([facility] Luis Clayton male 1950 69 y.o. as of 10/10/20 [facility] [address] Home Phone Work Phone PCP: Ya Yee MD (General) [address] [place] [phone] Type of visit: New Patient Referring Clinician: Ya Yee MD [address] [place] [phone] Primary Care: Ya Yee [address] [place] [phone] Reason for referral / Chief complaint: Tremor Accompanied by: None Handedness: Right History of Presenting Illness (HPI): He endorsed having onset of hand tremor approximately 2 years ago, and these have gotten worse overlast 6 months or so. He endorsed these tremors to be mostly in the hands and happening with the useof the hand in different tasks, such as eating or holding objects. He also endorsed having some head tremor. He denied having any clear asymmetry of the hand tremors. No clear rest tremor. No clear slowness of movements, including walking or activities daily living. No clear asymmetric stiffness. No significant cognitive symptoms. No significant mood issues. No significant autonomic symptoms. No clear insomnia or dream enactment behavior. No decrease in sense of smell. Active Health Problems: Hand tremor Past Health Problems and Surgeries / Procedures: Umbilical hernia Tonsillectomy EMR List of Diagnosis: Diagnosis Date ??? Arthritis neck ??? Benign essential hypertension 03/13/2013 EMR List of Current Medications: Current Outpatient Medications on File Prior to Visit Medication Sig Dispense Refill ??? Cholecalciferol, Vitamin D3, 400 unit tablet Take 1,000 Units by mouth daily. No current facility-administered medications on file prior to visit. Relevant Past Medications: None Relevant Family History: First-degree relatives: Mother had dementia, possibly limits dementia Second-degree relatives: Negative EMR List of Family History: Problem Relation Name Comments Cancer Brother prostate Dementia Mother Alzheimers Diabetes Paternal Uncle Heart Disease Father MS Heart Disease Paternal Uncle High Blood Pressure Father High Cholesterol Father Prostate Cancer Brother Social History: Living environment: Lives with his . They have 1 daughter. 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 General Physical Examination not testable properly due to telemedicine visit Neurological and Movement Disorders Examination: (severity scale: 0 - normal, 1+ - subtle, 2+ - mild, 3+ - moderate, 4+ - severe) Awake & alert Oriented to month, date, year, day and current place Able to tell names of current and past 3 presidents Serial 7: Correct at least 4 times Immediate recall to 3 words ([employer], [employer] and Purple) intact Delayed recall intact to 2 words Good fund of knowledge Fundoscopic examination: not testable properly due to telemedicine visit Pupils: Not testable properly due to telemedicine visit Visual saenz:Not testable properly due to telemedicine visit Primary gaze: No square wave jerks or nystagmus. Smooth pursuit not testable properly due to telemedicine visit. Saccades were full and without nystagmus. Symmetric upper and lower facial movements Facial sensations: Not testable properly due to telemedicine visit Hearing normal to conversation. Tongue and palate movements normal. Sternocleidomastoids strength: Not testable properly due to telemedicine visit Muscle strength: Not testable properly due to telemedicine visit Light touch sensation: Not testable properly due to telemedicine visit Pin-prick sensation: Not testable properly due to telemedicine visit Temperature sensation: Not testable properly due to telemedicine visit Vibration sensation: Not testable properly due to telemedicine visit Reflexes: Not testable properly due to telemedicine visit Hypomimia: 0 Hypophonia: 0 Dysarthria: 0 Tongue movement slowness: 0 Shoulder shrug slowness / restriction: 0 Repetitive alternating movements slowness / amplitude reduction / interruptions in upper limbs (UL): 0 Repetitive alternating movements slowness / amplitude reduction / interruptions in lower limbs (LL): 0 Postural tremor in UL: 1+ hand tremor Postural tremor in LL: 0 Kinetic tremor in UL: 1+ kinetic tremor Kinetic tremor in LL: 0 Rest tremor in UL: 0 Rest tremor in LL: 0 Rest tremor in head / neck / chin: 1+ head tremor Voice tremor: 0 Ataxia in UL: Limited testing due to telemedicine visit, 0 Ataxia in LL: Limited testing due to telemedicine visit, 0 Muscle tone abnormalities neck: Not testable properly due to telemedicine visit Muscle tone abnormalities in UL : Not testable properly due to telemedicine visit Muscle tone abnormalities LL: Not testable properly due to telemedicine visit Standing up with arms folded: 0 Stooped posture: Limited testing due to telemedicine visit, 0 Gait description: Limited testing due to telemedicine visit, normal Stride length and / or height asymmetry:Limited testing due to telemedicine visit, 0 Arm swing asymmetry: Limited testing due to telemedicine visit, 0 Gait ataxia: Limited testing due to telemedicine visit, 0 Romberg sign: Not testable properly due to telemedicine visit Backwards pull test: Not testable properly due to telemedicine visit Handwriting: Not testable properly due to telemedicine visit Archimedes spirals: Not testable properly due to telemedicine visit Cup-holding test: 1+ tremor Water-pouring test: Not testable properly due to telemedicine visit Hyperkinetic movements: no myoclonus, dystonia, dyskinesia, chorea, ballism, and athetosis. 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 Ya Yee for evaluation of hand tremor. Patient endorsed onset of hand tremor approximately 2 years ago, with age of onset of symptoms being approximately 67 years. He endorsed these tremors to be mostly with the use of the hands and denied having any other relevant motor or nonmotor symptoms. On neurological examination, he had 1+ action tremor in hands without any rest tremor or bradykinesia. I counseled the patient that his clinical presentation of subtle action tremor in hands with subtle hand tremor was most concerning for essential tremor with a component of enhanced physiological tremor. I counseled him that I did not see clinical features concerning for secondary forms of tremor or Parkinson's disease or parkinsonism. The severity of his tremor was not significant to warrant initiation of medications. I did encourage him to educate himself on essential tremor by visiting international essential tremor foundation website. I will be happy to see him on an as-needed basis or as determined by the referring primary care physician. I spent a total of at least 60 minutes on this visit. -- Yohan Cabezas MD Planting Material Carrier of Neurological Sciences, [facility] Neurologist, [facility] Address: [address] [address] Above note was partially typed and partially dictated (using MediVision software). The note may containsome spelling errors, which I have tried to correct using spell check. This is a telehealth audio and video visit that was performed with the originating site at patient's home and the distant site at my office in [facility] at [facility] during the Coronavirus (COVID-19) Public Health Emergency. Verbal consent to participate in video visit was obtained. I disc ussed with the patient the nature of our telemedicine visits, that ??? I would evaluate the patient and recommend diagnostics and treatments based on my assessment ??? Our sessions are not being recorded and that personal health information is protected ??? Our team would provide follow up care in person if/when the patient need sit and as allowed by resolution of pandemic. documented in this encounter Plan of Treatment Not on file documented as of this encounter Goals Goal Patient Goal Type Associated Problems Recent Progress Patient-Stated? Author LDL < 100 Result Component Hyperlipidemia 113( 9 9:29 EDT) Colleen Gracia documented as of this encounter Visit Diagnoses Diagnosis Action tremor- Primary Essential and other specified forms of tremor documented in this encounter Care Teams Urban Renewal Manager Relationship Specialty Start Date End Date Ya Yee MD [address] [place] [phone] PCP - General 02/23/16 10/02/21 documented as of this encounter
--- OUTSIDE RECORDS SUMMARY | 2024-03-02 02:24 | XMS_ITS | Encounter Summary ---
Author Organization [facility] Address [address] [place] [address] Care Team Providers Care Strategic Planner Name Role Phone Ya Yee MD Primary Care Provider [phone] Reason for Visit * Reason Onset Date Comments Pre-visit Orders 04/28/2019 Encounter Details Date Type Department Care Team (Late st Contact Info) Description 04/28/2019 Orders Only [facility] Adult Primary Care - [address] [phone] Ya Yee MD [address] [place] [phone] Hyperlipidemia, unspecified hyperlipidemia type (Primary Dx); Benign essential hypertension Social History Tobacco Use Types Packs/Day Years [...] as of this encounter Progress Notes * Ondina Mae - 04/28/2019 0837 EDT Patient is coming in for Annual Physical. Labs pended. documented in this encounter Plan of Treatment Not on file documented as of this encounter Goals Goal Patient Goal Type Associated Problems Recent Progress Patient-Stated? Author LDL < 100 Result Component Hyperlipidemia 113( 9 9:29 EDT) Colleen Gracia documented as of this encounter Results * LIPID PROFILE (INCLUDES CHOLESTEROL, TRIGLYCERIDES, HDL, LDL) (05/04/2019 9:29 EDT) Cholesterol 196 mg/dl 05/04/2019 11:07 [facility] Comment: Desirable:<200 Borderline High:200-239 High:>oc=375 Triglycerides 142 mg/dl 05/04/2019 11:07 [facility] Comment: Normal:<150 Borderline High:150-199 High:200-499 Very High:>hz=831 HDL 55 mg/dl 05/04/2019 11:07 [facility] Comment: Low:<40 Normal:40-60 Desirable: >60 LDL, Calculated 113 mg/dl 9 11:07 [facility] Comment: Optimal:<100 Near Optimal:100-129 Borderline High:130-159 High:160-189 Very High:>ny=906 Chol/HDL Ratio 3.6 05/04/2019 11:07 [facility] Fasting? YES 05/04/2019 9:10 [facility] Non HDL Cholesterol 141 mg/dl 05/04/2019 11:07 [facility] Comment: Desirable:<130 Borderline:130-159 High: 160-189 Very High: >ct=596 Blood specimen (specimen) BLOOD SPECIMEN / Unknown 05/04/2019 9:29 EDT 05/04/2019 10:07 EDT Ya Yee MD CHEMISTRY & BLOOD GAS ORDERABLES [facility] [address] [place] [address] * BASIC METABOLIC PANEL (BMP) (05/04/2019 9:29 EDT) Sodium 139 136 - 145 mEq/L 05/04/2019 11:07 [facility] Potassium 4.3 3.5 - 5.0 mEq/L 05/04/2019 11:07 [facility] Chloride 100 96 - 110 mEq/L 05/04/2019 11:07 [facility] CO2 30 22 - 32 mEq/L 05/04/2019 11:07 [facility] BUN 11 10 - 26 mg/dl 05/04/2019 11:07 [facility] Creatinine 0.78 0.66 - 1.25 mg/dl 05/04/2019 11:07 [facility] GFR, Calculated 91 >60 ml/min/1.7 3m2 05/04/2019 11:07 [facility] Comment: eGFR calculated using CKD-EPI equation for non Americans. Multiply eGFR by 1.16 for Americans. Calcium 9.3 8.5 - 10.5 mg/dl 05/04/2019 11:07 [facility] Calculated Calcium 8.9 8.5 - 10.5 mg/dl 05/04/2019 11:07 [facility] Glucose, Serum 93 70 - 100 mg/dl 05/04/2019 11:07 [facility] Fasting? YES 05/04/2019 9:10 [facility] Blood specimen (specimen) BLOOD SPECIMEN / Unknown 05/04/2019 9:29 EDT 05/04/2019 10:07 EDT Ya Yee MD CHEMISTRY & BLOOD GAS ORDERABLES [facility] [address] [place] [address] documented in this encounter Visit Diagnoses Diagnosis Hyperlipidemia, unspecified hyperlipidemia type- Primary Benign essential hypertension Essential hypertension, benign documented in this encounter Care Teams Strategic Planner Relationship Specialty Start Date End Date Ya Yee MD [address] [place] [phone] PCP - General 02/23/16 10/02/21 documented as of this encounter
--- OUTSIDE RECORDS SUMMARY | 2024-03-02 02:24 | XMS_ITS | Encounter Summary ---
Author Organization [facility] Address [address] [place] [address] Care Team Providers Care Select Banker Name Role Phone Ya Yee MD Primary Care Provider [phone] Reason for Visit * Reason Onset Date Comments Labs Only 03/01/2020 Encounter Details Date Type Department Care Team (Late st Contact Info) Description 03/01/2020 Telephone [facility] Adult Primary Care - [address] [phone] Maryellen Cooper, ELIANA [address] [place] [phone] Labs Only Social History Tobacco Use Types Packs/Day Years [...] Notes * Telephone Encounter - Lizbeth Vera, PHAM - 03/01/2020 1057 EDT Luis was advised of Maryellen's note from today at 10:01 * Telephone Encounter - Maryellen Cooper APRN - 03/01/2020 1001 EDT Lab orders have been placed. I'm not sure why someone didn't contact me while I was here to put them in rather than have him leave. I'm assuming it was not done here at [place]? Anyway, I'm sorry for the confusion and that they were not placed. * Telephone Encounter - Viktoria Foote - 03/01/2020 0900 EDT Pt seen 02/25 by Jeanne He was advised to have labs done after the appointment Pt went to the lab today but there were none ordered Copied from visit note: Assessment/Plan: Tremors/involuntary movements - most likely essential tremor - No resting tremor - If patient is drinking EtOH daily and more than he is reporting, tremors may be worse once effects of EtOH wear off - Patient would not like any medication for essential tremor at this time so will not be rx'ing propranolol at this time - Do not see the benefit of imaging at this time. No stroke-like symptoms. - reassuring signs include negative neuro exam and VSS - Can refer to neuro for 2nd opinion - offered OT which patient declined - in the meantime will do routine blood work including CMP, Vit B12, folate and lipid - patient will be scheduling a routine physical with PCP documented in this encounter Plan of Treatment Not on file documented as of this encounter Goals Goal Patient Goal Type Associated Problems Recent Progress Patient-Stated? Author LDL < 100 Result Component Hyperlipidemia 113( 9 9:29 EDT) No Colleen Arora documented as of this encounter Visit Diagnoses Not on filedocumented in this encounter Care Teams Select Banker Relationship Specialty Start Date End Date Ya Yee MD [address] [place] [phone] PCP - General 02/23/16 10/02/21 documented as of this encounter
--- OUTSIDE RECORDS SUMMARY | 2024-03-02 02:24 | XMS_ITS | Encounter Summary ---
Author Organization [facility] Address [address] [place] [address] Care Team Providers Care Medical Records Assistant Name Role Phone Ya Yee MD Primary Care Provider +1 [phone] Reason for Visit * Reason Onset Date Comments Paperwork request 07/18/2020 FMLA Encounter Details Date Type Department Care Team (Late st Contact Info) Description 07/18/2020 Telephone [facility] Adult Primary Care - [address] [phone] Ya Yee MD [address] [place] [phone] Paperwork request ([place]) Social History Tobacco Use Types Packs/Day Years [...] encounter Miscellaneous Notes * Telephone Encounter - Viktoria Foote - 07/25/2020 1129 EST FMLA paperwork completed & returned to [facility] via fax [phone] Original given to urgent scanning team * Telephone Encounter - Viktoria Foote - 07/22/2020 1201 EST Dannielle - do you know if this has been completed & returned via fax? * Telephone Encounter - Deirdre Winn - 07/20/2020 1545 EST Received [employer] paperwork back as it needs some clarification on some of the questions Given to pcp to complete Once completed fax back to [phone] * Telephone Encounter - Deirdre Winn - 07/18/2020 1620 EST LM for pt that his paperwork is completed and he can come pick it up * Telephone Encounter - Ya Yee MD - 07/18/2020 1322 EST Paperwork completed. thanks * Telephone Encounter - Savannah Claros - 07/18/2020 1229 EST Patient dropped off [place] paperwork. Given to Dr Yee for review. 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 Author LDL < 100 Result Component Hyperlipidemia 113( 9 9:29 EDT) No Colleen Arora documented as of this encounter Visit Diagnoses Not on filedocumented in this encounter Care Teams Medical Records Assistant Relationship Specialty Start Date End Date Ya Yee MD [address] [place] [phone] PCP - General 02/23/16 10/02/21 documented as of this encounter
--- OUTSIDE RECORDS SUMMARY | 2024-03-02 02:24 | XMS_ITS | Encounter Summary ---
Author Organization [facility] Address [address] [place] [address] Care Team Providers Care Truck Hop Name Role Phone Ya Yee MD Primary Care Provider +1 [phone] Encounter Details Date Type Department Care Team (Latest Contact Info) Description 02/26/2020 Travel Social History Tobacco Use Types Packs/Day [...] have Coronavirus / COVID-19? No / Unsure 02/26/2020 9:42 EDT documented as of this encounter Functional [...] on filedocumented in this encounter Care Teams Truck Hop Relationship Specialty Start Date End Date Ya Yee MD [address] [place] [phone] PCP - General 02/23/16 10/02/21 documented as of this encounter
--- OUTSIDE RECORDS SUMMARY | 2024-03-02 02:24 | XMS_ITS | Encounter Summary ---
Author Organization [facility] Address [address] [place] [address] Care Team Providers Care Freight Engineer Name Role Phone Ya Yee MD Primary Care Provider +1 [phone] Encounter Details Date Type Department Care Team (Latest Contact Info) Description 04/22/2020 Travel Social History Tobacco Use Types Packs/Day [...] Never 04/22/2020 PHQ-2 Answer Date Recorded PHQ-2 Score 0 03/20/2020 Interpersonal Safety Answer Date Record ed Physically Hurt Never 03/20/2020 Verbally Threaten Never 03/20/2020 Sex and Gender Information Value Date Recorded Sex Assigned at Not on file Gender Identity Male 10/27/2019 18:25 EDT Sexual Orientation Not on file COVID-19 Exposure Response Date Recorded In the last month, have you been in contact with someone who was confirmed or suspected to have Coronavirus / COVID-19? No / Unsure 04/22/2020 9:37 EDT documented as of this encounter Functional [...] on filedocumented in this encounter Care Teams Freight Engineer Relationship Specialty Start Date End Date Ya Yee MD [address] [place] [phone] PCP - General 02/23/16 10/02/21 documented as of this encounter
--- OUTSIDE RECORDS SUMMARY | 2024-03-02 02:24 | XMS_ITS | Encounter Summary ---
Author Organization [facility] Address [address] [place] [address] Care Team Providers Care Blending Tank Tender Helper Name Role Phone Ya Yee MD Primary Care Provider +1 [phone] Reason for Visit * Reason Comments Medicare Annual Wellness Visit Encounter Details Date Type Department Care Team (Late st Contact Info) Description 06/30/2020 9:30 EST Office Visit [facility] Adult Primary Care - [address] [phone] Ya Yee MD [address] [place] [phone] Medicare annual wellness visit, subsequent (Primary Dx); Need for immunization against influenza; Benign essential hypertension Social History Tobacco Use [...] as of this encounter Progress Notes * Anne Jang - 06/30/2020 0930 EST Due to computer system disruption, additional clinical information for this visit is Scanned Note. For patients, please refer to guidance in [employer] on how to locate information. Generally this information will appear as a scanned documents saved in My Documents activity. documented in this encounter Plan of Treatment Not on file documented as of this encounter Goals Goal Patient Goal Type Associated Problems Recent Progress Patient-Stated? Author LDL < 100 Result Component Hyperlipidemia 113( 9 9:29 EDT) No Colleen Arora documented as of this encounter Visit Diagnoses Diagnosis Medicare annual wellness visit, subsequent- Primary Routine general medical examination at a health care facility Need for immunization against influenza Need for prophylactic vaccination and inoculation against influenza Benign essential hypertension Essential hypertension, benign documented in this encounter Orders Immunization/Injection Count Last Ordered Date First Ordered Date INFLUENZA VACCINE QUAD PF 0. 5 ML IM (6 MOS+) 1 07/11/2020 documented in this encounter Care Teams Blending Tank Tender Helper Relationship Specialty Start Date End Date Ya Yee MD [address] [place] [phone] PCP - General 02/23/16 10/02/21 documented as of this encounter
--- OUTSIDE RECORDS SUMMARY | 2024-03-02 02:24 | XMS_ITS | Encounter Summary ---
Author Organization Health system Address [address] [place] [address] Care Team Providers Care Preform Machine Operator Name Role Phone Ya Yee MD Primary Care Provider [phone] [phone] Reason for Visit * Reason Comments Annual Exam Encounter Details Date Type Department Care Team (Late st Contact Info) Description 05/07/2019 9:30 EDT Office Visit [facility] Adult Primary Care - [address] [phone] Ya Yee MD [address] [place] [phone] Routine health maintenance (Primary Dx); Hyperlipidemia, unspecified hyperlipidemia type; Neck pain Social History Tobacco Use Types Packs/Day Years [...] Sign Reading Time Taken Comments Blood Pressure 130/76 05/07/2019919 EDT Pulse 64 05/07/2019 09 EDT Temperature - - Respiratory Rate 12 05/07/2019 09 EDT Oxygen Saturation - - Inhaled Oxygen Concentration - - Weight 73.5 kg (162 lb) 05/07/2019 09 EDT Height 177.8 cm (5' 10) 05/07/2019 09 EDT Body Mass Index 23.24 05/07/2019 0920 EDT documented in this encounter Functional Status [...] No 04/23/2018 documented as of this encounter Patient Instructions * Patient Instructions* Ya Yee MD, MD - 05/07/2019 9:30 EDT Images from the original note were not included. [facility] Patient Instructions Neck: Exercises Your Care Instructions Here are some examples of typical rehabilitation exercises for your condition. Start each exercise slowly. Ease off the exercise if you start to have pain. Your doctor or physical therapist will tell you when you can start these exercises and which ones will work best for you. How to do the exercises Neck stretch 1. This stretch works best if you keep your shoulder down as you lean away from it. To help you remember to do this, start by relaxing your shoulders and lightly holding on to your thighs or your chair. 2. Tilt your head toward your shoulder and hold for 15 to 30 seconds. Let the weight of your head stretch your muscles. 3. If you would like a little added stretch, use your hand to gently and steadily pull your head toward your shoulder. For example, keeping your right shoulder down, lean your head to the left. 4. Repeat 2 to 4 times toward each shoulder. Diagonal neck stretch 1. Turn your head slightly toward the direction you will be stretching, and tilt your head diagonally toward your chest and hold for 15 to 30 seconds. 2. If you would like a little added stretch, use your hand to gently and steadily pull your head forward on the diagonal. 3. Repeat 2 to 4 times toward each side. Dorsal glide stretch 1. Sit or stand tall and look straight ahead. 2. Slowly tuck your chin as you glide your head backward over your body 3. Hold for a count of 6, and then relax for up to 10 seconds. 4. Repeat 8 to 12 times. Chest and shoulder stretch 1. Sit or stand tall and glide your head backward as in the dorsal glide stretch. 2. Raise both arms so that your hands are next to your ears. 3. Take a deep breath, and as you breathe out, lower your elbows down and behind your back. You will feel your shoulder blades slide down and together, and at the same time you will feel a stretch across your chest and the front of your shoulders. 4. Hold for about 6 seconds, and then relax for up to 10 seconds. 5. Repeat 8 to 12 times. Strengthening: Hands on head 1. Move your head backward, forward, and side to side against gentle pressure from your hands, holding each position for about 6 seconds. 2. Repeat 8 to 12 times. Follow-up care is a goldman part of your treatment and safety. Be sure to make and go to all appointments, and call your doctor if you are having problems. It's also a good idea to know your test resultsand keep a list of the medicines you take. Where can you learn more? Go to [email or web address] or log into your [employer] account at [email or web address]. Enter P975 in the search box to learn more about Neck: Exercises. Current as of: May 08, 2018 Content Version: 12.0 ?? [id number] [employer]. Care instructions adapted under license by [facility] If you have questions about a medical condition or this instruction, always ask your healthcare professional. [employer] disclaims any warranty or liability foryour use of this information. 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 He is and lives with his . Current exercise: walking. Current diet: healthy diet in general. Stress issues are: none Functional or impairment concerns are: none. He has normal activities of daily living. His home environment is safe. He is at low risk for falling. The healthcare team involved in caring for this patient include the following providers: Dr. Noble (otolanyngology). Medicare Annual Wellness Visit - Subsequent (only [...] 5 - 6 times per week Mood Screen (PHQ-2 on new pt and follow-up questionnaire) done: Yes: Negative Vision: assessed: No: grossly normal Functional Evaluation completed ADLs: independent Cognitive: no impairment Hearing: grossly normal Fall Risk: no falls last year Home Safety: smoke detectors and CO detectors Advance Directives - has an advanced directive - a copy has been provided Updated list of treating providers on problem list: Yes Written Health Plan in patient instructions: No Billing - Subsequent [id number] History of present Illness (HPI): Mr. Ramirez presents for annual exam. He is feeling well. He remains very active- walking 2 mi a day and canoeing and biking as time allows. 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 His only concern today is some soreness in the neck since summer/spring. No preceding injury. Feelssore bilaterally. Worse with turning head though no deficit in ROM. Soreness is mild- does not warrant medication. Hasn't tried any therapies for it. No headache, no radiation, no numbness/stingling/weakness in his arms/fingers. Has been working on more mindful eating over the past 6 months and has lost 7- 10lbs. Lipids are improved. Health maintenance: due for shingrix Patient Active Problem List Diagnosis Date Noted [...] Mother Alzheimers ??? Heart Disease Father 61 DC ??? High Blood Pressure Father ??? High Cholesterol Father ??? Heart Disease Paternal Uncle ??? Diabetes Paternal Uncle Current Outpatient Medications: Cholecalciferol, Vitamin D3, 400 unit tablet Take 1,000 Units by mouth daily. No Known Allergies Social History Tobacco Use ??? Smoking status: Never Smoker ??? Smokeless tobacco: Never Used ??? Tobacco comment: Quit as a teenager Substance Use Topics ??? Alcohol use: Yes Alcohol/week: 8.0 standard drinks Types: 8 Glasses of wine per week ??? Drug use: No Review of Systems: see HPI System Neg Pos Comments Constitutional x Eyes x No visual impairment, has regular eye exams ENT x No hearing impairment Cardiovascular x Pulmonary x Gastrointestinal x No rectal bleeding Genitourinary x No incontinence Musculoskeletal x Neck soreness Skin/breast x Neurological x No balance problems or cognitive impairment (Mini-Cog test) Psychiatric x Denies depressed mood, feeling down in the dumps, anxiety Endocrine x Hematologic Lymphatic x Allergic Immunologic x Behavioral Health Screen Summary Interpretation PHQ-2: 0 PHQ-9: SUZETTE-2: SUZETTE-7: SASQ: Never AUDIT-10: SSASQ: Never DAST-10: . Objective: Physical Examination: BP 130/76 Pulse 64 Resp 12 Ht 177.8 cm (70) Wt 73.5 kg (162 lb) BMI 23.24 kg/m?? General: Alert, cooperative, no distress. Head: Normocephalic, without obvious abnormality. Eyes: Conjunctivae clear. PERRL, EOMs intact. Ears: Normal TMs and external ear canals both ears. Hearing grossly nl. Neck: Supple, symmetrical, trachea midline, no adenopathy, thyroid: no enlargement, tenderness or nodules, no carotid bruit and no JVD.. Back: Symmetric, no curvature. No spinal or CVA tenderness. Lungs: Clear to auscultation bilaterally. Heart: Regular rate and rhythm, S1, S2 normal, no systolic murmur, no click, rub or gallop. Abdomen: Soft, non-tender. Bowel sounds normal. No masses, No organomegaly, no bruits or evidence for aneurysm. Extremities: Extremities atraumatic, no clubbing, cyanosis or edema Musculoskeletal: No joint swelling, effusion or redness. Neck ROM intact Pulses: 2+ and symmetric all extremities. Skin: Skin color, texture, turgor normal. No rashes or suspicious lesions. Neurologic: A+Ox3, pleasant. NMl gait LABS: Results for orders placed or performed in visit on 05/04/19 LIPID PROFILE (INCLUDES CHOLESTEROL, TRIGLYCERIDES, HDL, LDL) Result Value Ref Range Cholesterol 196 mg/dl Triglycerides 142 mg/dl HDL 55 mg/dl LDL, Calculated 113 mg/dl Chol/HDL Ratio 3.6 Fasting? YES Non HDL Cholesterol 141 mg/dl BASIC METABOLIC PANEL (BMP) Result Value Ref Range Sodium 139 136 - 145 mEq/L Potassium 4.3 3.5 - 5.0 mEq/L Chloride 100 96 - 110 mEq/L CO2 30 22 - 32 mEq/L BUN 11 10 - 26 mg/dl Creatinine 0.78 0.66 - 1.25 mg/dl GFR, Calculated 91 >60 ml/min/1.73m2 Calcium 9.3 8.5 - 10.5 mg/dl Calculated Calcium 8.9 8.5 - 10.5 mg/dl Glucose, Serum 93 70 - 100 mg/dl Fasting? YES Assessment: Health Maintenance activities are largely up-to-date, an annual flu shot is recommended each fall/winter. HLD: well controlled with lifestyle changes Neck soreness: suspect muscle pain. Recommend heat and stretching. Could try craniosacral PT if no improvement. No indication for imaging at this time Immunization History Administered Date(s) Administered ??? Pneumococcal Conj Vacc PCV13 (PREVNAR-13) IM 08/27/2016 ? ? Pneumococcal Polysaccharide (PPSV23) Vaccine (PNEUMOVAX-23) =>2YO SQ/IM 08/10/2008, 04/23/2018 ? ? Tdap Vaccine =>7YO IM 08/27/2013 ??? Zostavax (Zoster Vaccine, Live) SQ 03/08/2011 Advance Directive status: on file in the medical record. Labs are normal. Health habits are excellent. The patient does not have any significant impairment of vision, hearing, gait or cognitive capacities. He lives in a safe home environment and is at low risk for falls. His activities of daily living are normal. Plan: Recommendations: Health Maintenance Topic Date Due ??? SHINGLES IMMUNIZATION (2 of 3) 05/03/2011 ??? FALL RISK SCREENING 05/07/2020 ??? Social Determinants of Health (SDOH) 05/07/2020 ??? BEHAVIORAL HEALTH SCREEN 05/07/2020 ??? PREVENTIVE CARE VISIT 05/07/2021 ??? TETANUS (ADULT) IMMUNIZATION 08/27/2023 ??? LIPID PROFILE SCREENING (CHOLESTEROL) 05/04/2024 ??? COLON CANCER SCREENING COLONOSCOPY 04/30/2029 ??? ADVANCE DIRECTIVE Completed ??? PERTUSSIS (ADULT) IMMUNIZATION Completed ??? HEPATITIS C SCREEN Completed ??? PNEUMOCOCCAL IMMUNIZATION (65+) Completed ??? ABDOMINAL AORTIC ANEURYSM (AAA SCREEN) Discontinued ??? INFLUENZA IMMUNIZATION (ADULT) Discontinued - Regular eye exams to check visual acuity, screen for glaucoma and other eye problems. - Avoid smoking or other tobacco products such as chewing tobacco and snuff. - Alcohol to be used only in moderation, preferably not on a daily basis. - Wearing seat belts. This has been shown in many studies to prevent injuries and fatalities in auto accidents. - Wearing helmets. Helmet use when riding a bike, skiing , snowmobiling, etc. is critical to preventing head injury. - Gun safety: if guns are in the home, practice safe gun storage (trigger locks, gun cabinets, separate ammo storage). - Healthy eating. This means eating a diet that is low in fat and junk food, high in fiber, fruits and vegetables. - Regular exercise. As little as thirty minutes of aerobic exercise three times per week helps prevent heart disease, hypertension, osteoporosis as well as improving endurance and energy level. Dailyaerobic exercise is best! - Safe sex. Sexually transmitted diseases, hepatitis and HIV infection are all, to a large extent preventable. - Regular dental visits, usually twice/year. - Minimize suntanning and use sun block when in the sun. Avoid tanning beds. Sun exposure is directly linked not only to skin cancer but also to premature wrinkling of the skin. Other Problems Dealt With During This Exam: Luis was seen today for annual exam. Diagnoses and all orders for this visit: Routine health maintenance Hyperlipidemia, unspecified hyperlipidemia type - continue to monitor annually Neck pain - heat, stretches provided F/u 1 year or sooner prn Today's [id number] visit time was 45 minutes with 30 [...] prepared with speech recognition software or keyboard data entry technician techniques. Minor irregularities or keyboarding misprints may be present documented in this encounter Plan of Treatment Not on file documented as of this encounter Goals Goal Patient Goal Type Associated Problems Recent Progress Patient-Stated? Author LDL < 100 Result Component Hyperlipidemia 113( 9 9:29 EDT) Colleen Gracia documented as of this encounter Visit Diagnoses Diagnosis Routine health maintenance- Primary Routine general medical examination at a health care facility Hyperlipidemia, unspecified hyperlipidemia type Neck pain Cervicalgia documented in this encounter Care Teams Preform Machine Operator Relationship Specialty Start Date End Date Ya Yee MD [address] [place] [phone] PCP - General 02/23/16 10/02/21 documented as of this encounter
--- OUTSIDE RECORDS SUMMARY | 2024-03-02 02:24 | XMS_ITS | Encounter Summary ---
Author Organization [facility] Address [address] [place] [address] Care Team Providers Care Assembly Operator Name Role Phone Ya Yee MD Primary Care Provider +1 -[phone] Encounter Details Date Type Department Care Team (Latest Contact Info) Description 08/01/2020 Travel Social History Tobacco Use Types Packs/Day [...] on filedocumented in this encounter Care Teams Assembly Operator Relationship Specialty Start Date End Date Ya Yee MD [address] [place] [phone] PCP - General 02/23/16 10/02/21 documented as of this encounter
--- OUTSIDE RECORDS SUMMARY | 2024-03-02 02:24 | XMS_ITS | Encounter Summary ---
Author Organization [facility] Address [address] [place] [address] Care Team Providers Care Trim Machine Adjuster Name Role Phone Ya Yee MD Primary Care Provider +1 -[phone] Encounter Details Date Type Department Care Team (Late st Contact Info) Description 05/04/2019 Phlebotomy Only [facility] [address] [place] [address] Supervisor Paint, Outpatient Hyperlipidemia, unspecified hyperlipidemia type; Benign essential hypertension Social History Tobacco Use [...] PROFILE (INCLUDES CHOLESTEROL, TRIGLYCERIDES, HDL, LDL) Routine 05/04/2019 9:29 EDT Hyperlipidemia, unspecified hyperlipidemia type BASIC METABOLIC PANEL (BMP) Routine 05/04/2019 9:29 EDT Benign essential hypertension documented in this encounter Results * BASIC METABOLIC PANEL (BMP) (05/04/2019 9:29 EDT) Sodium 139 136 - 145 mEq/L 05/04/2019 11:07 [facility] Potassium 4.3 3.5 - 5.0 mEq/L 05/04/2019 11:07 [facility] Chloride 100 96 - 110 mEq/L 05/04/2019 11:07 [facility] CO2 30 22 - 32 mEq/L 05/04/2019 11:07 [facility] BUN 11 10 - 26 mg/dl 05/04/2019 11:07 [facility] Creatinine 0.78 0.66 - 1.25 mg/dl 05/04/2019 11:07 [facility] GFR, Calculated 91 >60 ml/min/1.7 3m2 05/04/2019 11:07 [facility] Comment: eGFR calculated using CKD-EPI equation for non Americans. Multiply eGFR by 1.16 for Americans. Calcium 9.3 8.5 - 10.5 mg/dl 05/04/2019 11:07 [facility] Calculated Calcium 8.9 8.5 - 10.5 mg/dl 05/04/2019 11:07 [facility] Glucose, Serum 93 70 - 100 mg/dl 05/04/2019 11:07 [facility] Fasting? YES 05/04/2019 9:10 [facility] Blood specimen (specimen) BLOOD SPECIMEN / Unknown 05/04/2019 9:29 EDT 05/04/2019 10:07 EDT Ya Yee MD CHEMISTRY & BLOOD GAS ORDERABLES [facility] [address] [place] [address] * LIPID PROFILE (INCLUDES CHOLESTEROL, TRIGLYCERIDES, HDL, LDL) (05/04/2019 9:29 EDT) Cholesterol 196 mg/dl 05/04/2019 11:07 [facility] Comment: Desirable:<200 Borderline High:200-239 High:>qc=165 Triglycerides 142 mg/dl 05/04/2019 11:07 [facility] Comment: Normal:<150 Borderline High:150-199 High:200-499 Very High:>ya=753 HDL 55 mg/dl 05/04/2019 11:07 [facility] Comment: Low:<40 Normal:40-60 Desirable: >60 LDL, Calculated 113 mg/dl 9 11:07 [facility] Comment: Optimal:<100 Near Optimal:100-129 Borderline High:130-159 High:160-189 Very High:>sn=653 Chol/HDL Ratio 3.6 05/04/2019 11:07 [facility] Fasting? YES 05/04/2019 9:10 [facility] Non HDL Cholesterol 141 mg/dl 05/04/2019 11:07 [facility] Comment: Desirable:<130 Borderline:130-159 High: 160-189 Very High: >rj=711 Blood specimen (specimen) BLOOD SPECIMEN / Unknown 05/04/2019 9:29 EDT 05/04/2019 10:07 EDT Ya Yee MD CHEMISTRY & BLOOD GAS ORDERABLES [facility] [address] [place] [address] documented in this encounter Visit Diagnoses Diagnosis Hyperlipidemia, unspecified hyperlipidemia type Benign essential hypertension Essential hypertension, benign documented in this encounter Care Teams Trim Machine Adjuster Relationship Specialty Start Date End Date Ya Yee MD [address] [place] [phone] PCP - General 02/23/16 10/02/21 documented as of this encounter
--- OUTSIDE RECORDS SUMMARY | 2024-03-02 02:24 | XMS_ITS | Encounter Summary ---
Author Organization [facility] Address [address] [place] [address] Care Team Providers Care Burr Bench Hand Name Role Phone Ya Yee MD Primary Care Provider [phone] [phone] Reason for Visit * Reason Comments Shoulder Pain Right shoulder pain, after fall. Having ROM problems. Fall fell 3 wks ago. Encounter Details Date Type Department Care Team (Late st Contact Info) Description 10/05/2019 11:30 EST Office Visit [facility] Adult Primary Care - [address] [id number] Lauren Grimes PA-C [address] [place] [phone] Impingement syndrome of right shoulder (Primary Dx); Fall from slipping on ice, initial encounter Social History Tobacco Use Types Packs/Day Years [...] Sign Reading Time Taken Comments Blood Pressure 132/76 10/05/2019 1134 EST Pulse 74 10/05/2019 1134 EST Temperature 36.5 ??C (97.7 ??F) 10/05/2019 1134 EST Respiratory Rate 14 10/05/2019 1134 EST Oxygen Saturation - - Inhaled Oxygen Concentration - - Weight - [...] this encounter Patient Instructions * Patient Instructions* Lauren Grimes PA-C - 10/05/2019 11:30 EST Images from the original note were not included. Call [facility] for PT appt if no improvement with home treatment in 1-2 weeks [phone] Rotator Cuff Problems: Care Instructions Your Care Instructions The rotator cuff is a group of tendons and muscles around the shoulder that keeps the shoulder joint stable and allows you to raise and rotate your arm. Over time, daily wear and exercise can cause the tendons to rub on the bones of your shoulder. This is called impingement. This condition may cause the tendons to bruise, degenerate, or tear. In many people, these problems do not cause pain. When they do cause pain, you can use rest, physical therapy, ice and heat, and anti-inflammatory medicine to reduce pain and swelling. If you still have pain after trying these treatments, you and your doctor can discuss having a steroid injection or surgery. Follow-up care is a goldman part of your treatment and safety. Be sure to make and go to all appointments, and call your doctor if you are having problems. It's also a good idea to know your test resultsand keep a list of the medicines you take. How can you care for yourself at home? ?? Be safe with medicines. Read and follow all instructions on the label. ? If the doctor gave you a prescription medicine for pain, take it as prescribed. ? If you are not taking a prescription pain medicine, ask your doctor if you can take an gjby-fqc-mqmldgx medicine. ?? Put ice or a cold pack on your shoulder for 10 to 20 minutes at a time. Try to do this every 1 to 2 hours for the next 3 days (when you are awake). Put a thin cloth between the ice pack and your skin. ?? After 3 days, put a warm, wet towel on your shoulder. This is to relax the muscles and increase blood flow. While holding the towel on your shoulder, lean forward so your arm hangs freely, and gently swing your arm back and forth like a pendulum. You also can do this standing under a warm shower. ?? Follow your doctor's advice for physical therapy. When your doctor says it is okay, try these stretching exercises. Do them slowly to avoid injury. Put a warm, wet towel on your shoulder before exercising. Stop any exercise that increases pain. ? Khicv-qe-ykujqo exercises. If it is not too painful, stretch your arm in four directions: across the body, up the back, to the side, and overhead. ? Pendulum exercise. Lean forward and hold onto a table or the back of a chair with your good arm. Bend at the waist, letting the arm with the sore shoulder hang straight down. Swing your arm back and forth like a pendulum, then in circles that start small and slowly grow larger. This exercise doesnot use the arm muscles. Instead, use your legs and your hips to create movement that makes your arm swing freely. Try this for about 5 minutes, several times a day. ? Wall climbing (to the side). Stand with your side to a wall so that your fingers can just touch it. Then turn so your body is turned slightly toward the wall. Walk the fingers of your injured arm up the wall as high as pain permits. Try not to shrug your shoulder up toward your ear as you move your arm up. Hold that position for a count of 15 to 30 seconds. Walk your fingers down to the starting position. Repeat 2 to 4 times, trying to reach higher each time. ? Wall climbing (to the front). Face a wall, standing so your fingers can just touch it. Walk the fingers of your affected arm up the wall as high as pain permits. Try not to shrug your shoulder up toward your ear as you move your arm up. Hold that position for a count of 15 to 30 seconds. Slowly walk your fingers to the starting position. Repeat 2 to 4 times, trying to reach higher each time. ?? Rest your shoulder when you are not doing stretches and other exercises. Your doctor may tell you to wait for the pain to go away before doing exercises. Do not lift heavy bags of groceries, play sports, or do anything else that makes you twist or stress your shoulder. Avoid activities where youmove your affected arm above your head. When should you call for help? Call your doctor now or seek immediate medical care if: ? You have severe pain. ? You cannot move your shoulder or arm. ? You have tingling or numbness in your arm or hand. ? Your arm or hand is cool or pale. ??Watch closely for changes in your health, and be sure to contact your doctor if: ? Your pain gets worse. ? You have new or worse swelling in your arm or hand. ? You do not get better as expected. documented in this encounter Progress Notes * Lauren Grimes PA-C - 10/05/2019 1130 EST Images from the original note were not included. Patient ID: Luis Clayton is a 68 y.o. y.o. male Chief Complaint: Shoulder Pain (Right shoulder pain, after fall. Having ROM problems. ) and Fall (fell 3 wks ago. ) History of present Illness (HPI): Shoulder pain Patient here with complaint of right shoulder pain. Started after slipping and falling on ice 3 weeks ago, landing on his left hip and lateral shoulder. Bothers most with lifting arm and sleeping, aswell as lifting heavy items forward like a teapot. Pain is located over the lateral shoulder and radiates down lateral arm. Treatments tried: ibuprofen with some relief. He has a history of a humerusfracture in his left shoulder causing limitation of movement on the left. He is right-handed. He isconcerned that his right shoulder has not been improving in the past 3 weeks. He also landed on hiship but that pain has resolved. He has no associated neck pain or numbness or tingling of hands. He also hit his head in the fall but has not had headaches and is not on blood thinners. Patient Active Problem List Diagnosis ??? Sensorineural hearing loss ??? Benign neoplasm of eyelid including canthus ??? Proteinuria ??? Benign essential hypertension ??? Degenerative joint disease involving multiple joints ??? Hyperlipidemia ??? Diverticulosis of large intestine without hemorrhage Current Outpatient Medications: Cholecalciferol, Vitamin D3, 400 unit tablet Take 1,000 Units by mouth daily. No Known Allergies Review of Systems: Pertinent positives and negatives noted in HPI. Objective: Physical Examination: BP 132/76 Pulse 74 Temp 36.5 ??C (97.7 ??F) (Tympanic) Resp 14 General: Well nourished, well developed, in no acute distress Lungs: Non-labored breathing Skin: Warm, dry Shoulder: Inspection: bilateral shoulders symmetric with no swelling, erythema, or rash Palpation: no pain over AC joint, Biceps, SC joint, medial boarder of scapula, cervical spine / paraspinal muscles ROM Right: Full range of motion with Forward Flexion, Abduction, Internal and External Rotation. Pain with abduction and forward flexion. Able to reach opposite shoulder blade underhanded ROM Left:decreased range of motion with Forward Flexion, Abduction, Internal and External Rotation Strength Right: 4/5 Emptycan Testing Strength Left: 5/5 Emptycan Testing Specialized Tests: Rotator cuff: negative gasca, positive neers, positive empty can AC Joint: negative crossbody adduction. Subscapularis: negative Gerbers lift off Assessment & Plan: Acute right-sided shoulder pain after a direct blow from a fall, with exam supporting impingement syndrome as the etiology. Advised continuing with supportive care and introducing home exercises given on handout, starting alternating heat and icing and taking ibuprofen 400 mg twice a day for anti-in flammatory effect until pain starts to improve. Discussed potential adverse effects of NSAIDS on blood pressure and renal function (no history of CKD) and advised a lower dose for limited time period, and using acetaminophen in addition if needed. If he is not starting to see improvement with home exercises in the next week or 2, advised starting physical therapy. Discussed importance of avoidingaggravating activities like lifting grocery bags and tea pots Luis was seen today for shoulder pain and fall. Diagnoses and all orders for this visit: Impingement syndrome of right shoulder - AMB CONS/FOLLOW UP PHYSICAL THERAPY; Future Fall from slipping on ice, initial encounter - AMB CONS/FOLLOW UP PHYSICAL THERAPY; Future I spent a total of 25 minutes in face to face time with this patient today and 15 minutes of that time was spent in counseling and coordination of care as described in the progress note. Pt Ed: - Call [facility] for PT appt if no improvement with home treatment in 1-2 weeks [phone] Rotator Cuff Problems: Care Instructions Your Care Instructions The rotator cuff is a group of tendons and muscles around the shoulder that keeps the shoulder joint stable and allows you to raise and rotate your arm. Over time, daily wear and exercise can cause the tendons to rub on the bones of your shoulder. This is called impingement. This condition may cause the tendons to bruise, degenerate, or tear. In many people, these problems do not cause pain. When they do cause pain, you can use rest, physical therapy, ice and heat, and anti-inflammatory medicine to reduce pain and swelling. If you still have pain after trying these treatments, you and your doctor can discuss having a steroid injection or surgery. Follow-up care is a goldman part of your treatment and safety. Be sure to make and go to all appointments, and call your doctor if you are having problems. It's also a good idea to know your test resultsand keep a list of the medicines you take. How can you care for yourself at home? ?? Be safe with medicines. Read and follow all instructions on the label. ? If the doctor gave you a prescription medicine for pain, take it as prescribed. ? If you are not taking a prescription pain medicine, ask your doctor if you can take an xgtz-okt-tdepxar medicine. ?? Put ice or a cold pack on your shoulder for 10 to 20 minutes at a time. Try to do this every 1 to 2 hours for the next 3 days (when you are awake). Put a thin cloth between the ice pack and your skin. ?? After 3 days, put a warm, wet towel on your shoulder. This is to relax the muscles and increase blood flow. While holding the towel on your shoulder, lean forward so your arm hangs freely, and gently swing your arm back and forth like a pendulum. You also can do this standing under a warm shower. ?? Follow your doctor's advice for physical therapy. When your doctor says it is okay, try these stretching exercises. Do them slowly to avoid injury. Put a warm, wet towel on your shoulder before exercising. Stop any exercise that increases pain. ? Yzzrr-wq-hpmwfl exercises. If it is not too painful, stretch your arm in four directions: across the body, up the back, to the side, and overhead. ? Pendulum exercise. Lean forward and hold onto a table or the back of a chair with your good arm. Bend at the waist, letting the arm with the sore shoulder hang straight down. Swing your arm back and forth like a pendulum, then in circles that start small and slowly grow larger. This exercise doesnot use the arm muscles. Instead, use your legs and your hips to create movement that makes your arm swing freely. Try this for about 5 minutes, several times a day. ? Wall climbing (to the side). Stand with your side to a wall so that your fingers can just touch it. Then turn so your body is turned slightly toward the wall. Walk the fingers of your injured arm up the wall as high as pain permits. Try not to shrug your shoulder up toward your ear as you move your arm up. Hold that position for a count of 15 to 30 seconds. Walk your fingers down to the starting position. Repeat 2 to 4 times, trying to reach higher each time. ? Wall climbing (to the front). Face a wall, standing so your fingers can just touch it. Walk the fingers of your affected arm up the wall as high as pain permits. Try not to shrug your shoulder up toward your ear as you move your arm up. Hold that position for a count of 15 to 30 seconds. Slowly walk your fingers to the starting position. Repeat 2 to 4 times, trying to reach higher each time. ?? Rest your shoulder when you are not doing stretches and other exercises. Your doctor may tell you to wait for the pain to go away before doing exercises. Do not lift heavy bags of groceries, play sports, or do anything else that makes you twist or stress your shoulder. Avoid activities where youmove your affected arm above your head. When should you call for help? Call your doctor now or seek immediate medical care if: ? You have severe pain. ? You cannot move your shoulder or arm. ? You have tingling or numbness in your arm or hand. ? Your arm or hand is cool or pale. ??Watch closely for changes in your health, and be sure to contact your doctor if: ? Your pain gets worse. ? You have new or worse swelling in your arm or hand. ? You do not get better as expected. Portions of this document may have been prepared with speech recognition software or keyboard data analysis assistant techniques. Minor irregularities or keyboarding misprints may be present. documented in this encounter Plan of Treatment Not on file documented as of this encounter Goals Goal Patient Goal Type Associated Problems Recent Progress Patient-Stated? Author LDL < 100 Result Component Hyperlipidemia 113( 9 9:29 EDT) No Colleen Arora documented as of this encounter Visit Diagnoses Diagnosis Impingement syndrome of right shoulder- Primary Other affections of shoulder region, not elsewhere classified Fall from slipping on ice, initial encounter documented in this encounter Care Teams Burr Bench Hand Relationship Specialty Start Date End Date Ya Yee MD [address] [place] [phone] PCP - General 02/23/16 10/02/21 documented as of this encounter
--- OUTSIDE RECORDS SUMMARY | 2024-03-02 02:24 | XMS_ITS | Encounter Summary ---
Author Organization [facility] Address [address] [place] [address] Care Team Providers Care Sales Manager Prearranged Funerals Name Role Phone Ya Yee MD Primary Care Provider [phone] [phone] Encounter Details Date Type Department Care Team (Latest Contact Info) Description 11/03/2019 Travel Social History Tobacco Use Types Packs/Day [...] have Coronavirus / COVID-19? No / Unsure 11/03/2019 11:14 EDT documented as of this encounter Functional [...] on filedocumented in this encounter Care Teams Sales Manager Prearranged Funerals Relationship Specialty Start Date End Date Ya Yee MD [address] [place] [phone] PCP - General 02/23/16 10/02/21 documented as of this encounter
--- OUTSIDE RECORDS SUMMARY | 2024-03-02 02:24 | XMS_ITS | Encounter Summary ---
Author Organization [facility] Address [address] [place] [address] Care Team Providers Care Torch Cutter Name Role Phone Ya eYe MD Primary Care Provider [phone] [phone] Encounter Details Date Type Department Care Team (Latest Contact Info) Description 03/03/2020 Travel Social History Tobacco Use Types Packs/Day [...] have Coronavirus / COVID-19? No / Unsure 03/03/2020 8:19 EDT documented as of this encounter Functional [...] on filedocumented in this encounter Care Teams Torch Cutter Relationship Specialty Start Date End Date Ya Yee MD [address] [place] [phone] PCP - General 02/23/16 10/02/21 documented as of this encounter
--- OUTSIDE RECORDS SUMMARY | 2024-03-02 02:24 | XMS_ITS | Encounter Summary ---
Author Organization [facility] Address [address] [place] [address] Care Team Providers Care Taker Off Hemp Fiber Name Role Phone Ya Yee MD Primary Care Provider +1 [phone] Encounter Details Date Type Department Care Team (Latest Contact Info) Description 01/19/2020 Travel Social History Tobacco Use Types Packs/Day [...] on filedocumented in this encounter Care Teams Taker Off Hemp Fiber Relationship Specialty Start Date End Date Ya Yee MD [address] [place] [phone] PCP - General 02/23/16 10/02/21 documented as of this encounter
--- OUTSIDE RECORDS SUMMARY | 2024-03-02 02:24 | XMS_ITS | Encounter Summary ---
Author Organization [facility] Address [address] [place] [address] Care Team Providers Care Supervisor Patching Name Role Phone Ya Yee MD Primary Care Provider +1 [phone] Reason for Visit * Reason Comments Cerumen Impaction Encounter Details Date Type Department Care Team (Late st Contact Info) Description 01/19/2020 10:00 EDT Office Visit [address] [id number] Chetna Noble MD [address] [place] [address], [address] [place] [phone] Impacted cerumen of both ears [...] this encounter Progress Notes * Chetna Noble MD - 01/19/2020 1000 EDT ENT Cerumenectomy Pt has been doing well since his last visit. Indications - copious obstructing cerumen bilateral Procedure - with microscope cerumen removed with suction and microinstrumentation Findings - TMs and canals wnl once cerumen removed Follow up in 3 months. documented in this encounter Plan of Treatment Not on file documented as of this encounter Goals Goal Patient Goal Type Associated Problems Recent Progress Patient-Stated? Author LDL < 100 Result Component Hyperlipidemia 113( 9 9:29 EDT) No Colleen Arora documented as of this encounter Visit Diagnoses Diagnosis Impacted cerumen of both ears- Primary Impacted cerumen documented in this encounter Care Teams Supervisor Patching Relationship Specialty Start Date End Date Ya Yee MD [address] [place] [phone] PCP - General 02/23/16 10/02/21 documented as of this encounter
--- OUTSIDE RECORDS SUMMARY | 2024-03-02 02:24 | XMS_ITS | Encounter Summary ---
Author Organization [facility] Address [address] [place] [address] Care Team Providers Care Stevedore Dock Name Role Phone Ya Yee MD Primary Care Provider +1 [phone] Encounter Details Date Type Department Care Team (Latest Contact Info) Description 03/01/2020 Travel Social History Tobacco Use Types Packs/Day [...] on filedocumented in this encounter Care Teams Stevedore Dock Relationship Specialty Start Date End Date Ya Yee MD [address] [place] [phone] PCP - General 02/23/16 10/02/21 documented as of this encounter
--- OUTSIDE RECORDS SUMMARY | 2024-03-02 02:24 | XMS_ITS | Encounter Summary ---
Author Organization [facility] Address [address] [place] [address] Care Team Providers Care [place] Name Role Phone Ya Yee MD Primary Care Provider +1 [phone] Encounter Details Date Type Department Care Team (Latest Contact Info) Description 07/28/2020 Travel Social History Tobacco Use Types Packs/Day [...] have Coronavirus / COVID-19? No / Unsure 07/28/2020 11:57 EST documented as of this encounter Functional [...] on filedocumented in this encounter Care Teams [place] Relationship Specialty Start Date End Date Ya Yee MD [address] [place] [phone] PCP - General 02/23/16 10/02/21 documented as of this encounter
--- OUTSIDE RECORDS SUMMARY | 2024-03-02 02:24 | XMS_ITS | Encounter Summary ---
Author Organization [facility] Address [address] [place] [address] Care Team Providers Care Cold Type Composing Machine Operator Name Role Phone Ya Yee MD Primary Care Provider [phone] [phone] Reason for Visit * Reason Comments Hand Problem Patient states that his arms and hand have tremors. When he's pouring something. Other He's also has head s haking his notices when he's looking at his Ipad that's on a stand. Encounter Details Date Type Department Care Team (Late st Contact Info) Description 02/26/2020 9:45 EDT Office Visit [facility] Adult Primary Care - [address] [address] Maryellen Cooper, ELIANA [address] [place] [address] Essential tremor (Primary Dx) Social [...] 9:42 EDT documented as of this encounter Last Filed Vital Signs Vital Sign Reading Time Taken Comments Blood Pressure 138/72 02/26/2020940 EDT Pulse 75 02/26/2020940 EDT Temperature 36.7 ??C (98 ??F) 02/26/2020940 EDT Respiratory Rate 12 02/26/2020940 EDT Oxygen Saturation - - Inhaled Oxygen Concentration - - Weight 70.4 kg (155 lb 3.2 oz) 02/26/2020940 E DT Height 177.8 cm (5' 10) 02/26/2020940 EDT Body Mass Index 22.27 02/26/2020940 EDT documented in this encounter Functional Status [...] Progress Notes * Maryellen Cooper APRN - 02/26/2020944 EDT Subjective: Patient ID: Luis Clayton is an 69 y.o. male. Chief Complaint Patient presents with ??? Hand Problem Patient states that his arms and hand have tremors. When he's pouring something. ??? Other He's also has head shaking his notices when he's looking at his Ipad that's on a stand. HPI Luis Clayton is a 69 y.o. male with a PMHx of HTN, HLD and sensorineural hearing loss who presents today with c/o tremors. Tremors - new problem for patient - most obvious when pouring something. Does not notice when eating, drinking or writing - patient's has noticed that while he's reading his smiley which is propped up on stand, his head is bobbing/twitching. Patient states he is completely unaware of this. 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 Sensorineural [...] to Visit Medication Sig Dispense Refill ??? albuterol 90 mcg/actuation inhaler Inhale 2 Puffs as directed 3 times daily. (Patient not taking: Reported on 02/26/2020) 1 Inhaler 0 ??? benzonatate (TESSALON) 100 mg capsule Take 1 Cap by mouth 3 times daily as needed for Cough. (Patient not taking: Reported on 02/26/2020) 30 Cap 0 ??? Cholecalciferol, Vitamin D3, 400 unit tablet Take 1,000 Units by mouth daily. ??? guaifenesin-codeine (GUAIFENESIN AC) 100-10 mg/5 mL liquid Take 5 mL by mouth every 4 hours as needed for Cough. Daily Max: 30 mL (Patient not taking: Reported on 02/26/2020) 120 mL 0 No current facility-administered medications on file prior to visit. No Known Allergies Social Social History Tobacco Use ??? Smoking status: Never Smoker ??? Smokeless tobacco: Never Used ??? Tobacco comment: Quit as a teenager Substance Use Topics ??? Alcohol use: Yes Alcohol/week: 8.0 standard drinks Types: 8 Glasses of wine per week ??? Drug use: No Review of Systems Constitutional: Negative for chills, diaphoresis, fever, malaise/fatigue and weight loss. HENT: Negative for hearing loss and sore throat. Eyes: Negative for blurred vision. Respiratory: Negative for cough and shortness of breath. Cardiovascular: Negative for chest pain, palpitations and leg swelling. Gastrointestinal: Negative for abdominal pain, nausea and vomiting. Musculoskeletal: Negative for joint pain and myalgias. Neurological: Positive for tremors. Negative for dizziness, tingling, sensory change, speech change, focal weakness, seizures, loss of consciousness, weakness and headaches. Psychiatric/Behavioral: Negative for depression and memory loss. The patient is not nervous/anxious. - See HPI Objective: BP 138/72 Pulse 75 Temp 36.7 ??C (98 ??F) (Temporal) Resp 12 Ht 177.8 cm (70) Wt 70.4 kg(155 lb 3.2 oz) BMI 22.27 kg/m?? Physical Exam Constitutional: He is oriented to person, place, and time. He appears well- developed and well-nourished. No distress. HENT: No facial drooping, no slurred speech. Cardiovascular: Normal rate, regular rhythm, normal heart sounds and intact distal pulses. Pulmonary/Chest: Effort normal and breath sounds normal. Neurological: He is alert and oriented to person, place, and time. He has normal strength and normal reflexes. No cranial nerve deficit or sensory deficit. He displays a negative Romberg sign. No resting tremor. Normal gait. AOX3. Equal hand strength. Head tremor noted. Patient able to hold arms out straight with no tremors noted. Able to draw spiral without drawing archimedes spiral. Skin: Skin is warm and dry. Psychiatric: He has a normal mood and affect. His behavior is normal. Judgment and thought content normal. Assessment/Plan: Tremors/involuntary movements - most likely essential [...] be scheduling a routine physical with PCP Luis was seen today for hand problem and other. Diagnoses and all orders for this visit: Essential tremor No follow-ups on file. documented in this encounter Plan of Treatment Not on file documented as of this encounter Goals Goal Patient Goal Type Associated Problems Recent Progress Patient-Stated? Author LDL < 100 Result Component Hyperlipidemia 113( 9 9:29 EDT) No Colleen Arora documented as of this encounter Visit Diagnoses Diagnosis Essential tremor- Primary Essential and other specified forms of tremor documented in this encounter Care Teams Cold Type Composing Machine Operator Relationship Specialty Start Date End Date Ya Yee MD [address] [place] [phone] PCP - General 02/23/16 10/02/21 documented as of this encounter
--- OUTSIDE RECORDS SUMMARY | 2024-03-02 02:24 | XMS_ITS | Encounter Summary ---
Author Organization [facility] Address [address] [place] [address] Care Team Providers Care Gravel Screener Name Role Phone Ya Yee MD Primary Care Provider [phone] [phone] Reason for Visit * Reason Onset Date Comments Abdominal Pain 06/06/2020 Encounter Details Date Type Department Care Team (Late st Contact Info) Description 06/06/[address] [facility] Adult Primary Care - [address] [phone] Ya Yee MD [address] [place] [phone] Abdominal Pain Social History Tobacco Use Types Packs/Day Years [...] encounter Miscellaneous Notes * Telephone Encounter - Marley Fernandez RN - 06/06/2020 1354 EDT TC to patient, relayed recommendation for JETT eval from Dr Yee. Patient verbalized understanding with no barriers to learning and agrees with plan of care. * Telephone Encounter - Ya Yee MD - 06/06/2020 1335 EDT I would recommend that he be seen jett. He likely needs abdominal imaging to r/o diverticulitis. THanks * Telephone Encounter - Marley Fernandez RN - 06/06/2020 1314 EDT TC to patient. First though he had an upset stomach. Pain moves around abdomen, sometimes upper left, sometimes sharp pain in midline pelvis. Soft stools, but not really diarrhea; some a little drapery cutter machine than usual. Also c/o fatigue. Does have a hx diverticulitis. No fever. No diet changes, but has been eating less. Eating does aggravate pain. Abdomen is sensitive to touch. Mild nausea, no vomiting. Increase in belching. TUMS helped some. Has not tried anything else OTC. Advised to eat small amounts more frequently, and make sure to keep hydrated. To PCP to advise further. * Telephone Encounter - Anne Miller - 06/06/2020 1248 EDT On Saturday pt started with Abd pain- sometimes sharp- worst pains are lower center Also feeling fatigue No fever Pos for soft stools Little nausea documented in this encounter Plan of Treatment Not on file documented as of this encounter Goals Goal Patient Goal Type Associated Problems Recent Progress Patient-Stated? Author LDL < 100 Result Component Hyperlipidemia 113( 9 9:29 EDT) No Colleen Arora documented as of this encounter Visit Diagnoses Not on filedocumented in this encounter Care Teams Gravel Screener Relationship Specialty Start Date End Date Ya Yee MD [address] [place] [phone] PCP - General 02/23/16 10/02/21 documented as of this encounter
--- OUTSIDE RECORDS SUMMARY | 2024-03-02 02:24 | XMS_ITS | Encounter Summary ---
Author Organization [facility] Address [address] [place] [address] Care Team Providers Care Assistant Offset Press Operator Name Role Phone Ya Yee MD Primary Care Provider [phone] [phone] Encounter Details Date Type Department Care Team (Late st Contact Info) Description 05/04/2019 9:07 EDT - 05/04/2019 23:59 EDT Hospital Encounter [facility] [address] [place] [id number] Ya Yee MD [address] [place] [phone] Discharge Disposition: Home or Self Care Social [...] 04/23/2018 documented as of this encounter Discharge Diagnoses Diagnosis E78.5 Hyperlipidemia, unspecified-E78.5[ICD-10-CM] I10 Essential (primary) hypertension-I10[ICD-10-CM] documented in this encounter Medications at Time of Discharge Medication Sig Dispensed Refills Start Date End Date Cholecalciferol, Vitamin D3, 400 unit tablet Take 1,000 Units by mouth daily. documented as of this encounter Discharge Disposition Disposition Code Departure Means Destination Home or Self Intermediate documented in this encounter Plan of Treatment Not on file documented as of this encounter Goals Goal Patient Goal Type Associated Problems Recent Progress Patient-Stated? Author LDL < 100 Result Component Hyperlipidemia 113( 9 9:29 EDT) Colleen Gracia documented as of this encounter Visit Diagnoses Not on filedocumented in this encounter Care Teams Assistant Offset Press Operator Relationship Specialty Start Date End Date Ya Yee MD [address] [place] [phone] PCP - General 02/23/16 10/02/21 documented as of this encounter
--- OUTSIDE RECORDS SUMMARY | 2024-03-02 02:24 | XMS_ITS | Encounter Summary ---
Author Organization [facility] Address [address] [place] [address] Care Team Providers Care Activity Aide Name Role Phone Ya Yee MD Primary Care Provider [phone] [phone] Reason for Visit * Reason Comments Follow-up Cerumen Impaction Encounter Details Date Type Department Care Team (Late st Contact Info) Description 04/29/2019 11:35 EDT Office Visit [facility] ENT- [address] [phone] Chetna Noble MD [address] [place] [address], [address] [place] [address] Impacted cerumen of both ears [...] encounter Progress Notes * Chetna Noble MD, MD - 04/29/2019 1135 EDT No problems since his last visit here 3 months ago. ENT Cerumenectomy Indications for Procedure: Obstructive copious cerumen that cannot be removed safely without magnification and multiple instruments. Careful examination of the ear and removal of cerumen was done on both ears using the operating microscope and microinstruments/suction. The patient tolerated this procedure well. Complications: None Findings: ears - canals and TMs wnl once cerumen removed Follow up in 3 months documented in [...] cerumen documented in this encounter Care Teams Activity Aide Relationship Specialty Start Date End Date Ya Yee MD [address] [place] [phone] PCP - General 02/23/16 10/02/21 documented as of this encounter
--- OUTSIDE RECORDS SUMMARY | 2024-03-02 02:24 | XMS_ITS | Encounter Summary ---
Author Organization [facility] Address [address] [place] [address] Care Team Providers Care Cane Burner Name Role Phone Ya Yee MD Primary Care Provider [phone] [phone] Reason for Visit * Reason Comments Cerumen Impaction Encounter Details Date Type Department Care Team (Late st Contact Info) Description 10/28/2019 9:30 EDT Office Visit [facility] ENT- [address] [phone] Chetna Noble MD [address] [place] [address], [address] [place] [address] Impacted cerumen of both ears [...] Progress Notes * Chetna Noble MD - 10/28/2019 0930 EDT ENT Cerumenectomy Pt is here today for 3 month follow up. He has had no particular problems. He questions whether hisbaseline hearing maybe decreasing. Indications - copious obstructing cerumen bilateral Procedure - with microscope and suction and microinstrumentation cerumen removed bilateral Findings - TMs and canals wnl once cerumen removed Follow up in 3 months. Audio was offered today but pt declined. documented in this encounter Plan of Treatment Not on file documented as of this encounter Goals Goal Patient Goal Type Associated Problems Recent Progress Patient-Stated? Author LDL < 100 Result Component Hyperlipidemia 113( 9 9:29 EDT) Colleen Gracia documented as of this encounter Visit Diagnoses Diagnosis Impacted cerumen of both ears- Primary Impacted cerumen documented in this encounter Care Teams Cane Burner Relationship Specialty Start Date End Date Ya Yee MD [address] [place] [phone] PCP - General 02/23/16 10/02/21 documented as of this encounter
--- OUTSIDE RECORDS SUMMARY | 2024-03-02 02:24 | XMS_ITS | Encounter Summary ---
Author Organization [facility] Address [address] [place] [address] Care Team Providers Care Bale Coverer Name Role Phone Ya Yee MD Primary Care Provider [phone] [phone] Reason for Visit * Reason Comments Follow-up 3 months cerumen Encounter Details Date Type Department Care Team (Late st Contact Info) Description 08/01/2020 10:30 EST Office Visit [facility]- [facility] [address] [place], [place] [phone] Marge Shields, PA-C [address] [facility], [address] [place] [address] Bilateral impacted cerumen (Primary Dx) [...] Progress Notes * Marge Shields PA-C - 08/01/2020 1030 EST .Luis Clayton presents today for management of ear wax. He notes no ear pain or otorrhea. ENT Cerumenectomy Indications for Procedure: Cerumen impairs exam of clinically significant portions of the ear(s). and Obstructive copious cerumen that cannot be removed safely without magnification and multiple instruments. Careful examination of the ear and removal of cerumen was done on both ears using the operating microscope and microinstruments/suction. The patient tolerated this procedure well. Complications: None Findings: TMs and canals wnl once cerumen removed Assess: Cerumen impaction Plan: Follow up visit 3 months Marge Shields PA-C documented in this encounter Plan of Treatment Not on file documented as of this encounter Goals Goal Patient Goal Type Associated Problems Recent Progress Patient-Stated? Author LDL < 100 Result Component Hyperlipidemia 113( 9 9:29 EDT) No Scudero, Colleen documented as of this encounter Visit Diagnoses Diagnosis Bilateral impacted cerumen- Primary Impacted cerumen documented in this encounter Care Teams Bale Coverer Relationship Specialty Start Date End Date Ya Yee MD [address] [place] [phone] PCP - General 02/23/16 10/02/21 documented as of this encounter
--- OUTSIDE RECORDS SUMMARY | 2024-03-02 02:24 | XMS_ITS | Encounter Summary ---
Author Organization [facility] Address [address] [place] [address] Care Team Providers Care Valet Parking Attendant Name Role Phone Ya Yee MD Primary Care Provider [phone] [phone] Reason for Visit * Reason Comments Follow-up cerumen Encounter Details Date Type Department Care Team (Late st Contact Info) Description 04/22/2020 9:30 EDT Office Visit [facility]- [address] [phone] Marge Shields, PA-C [address] [facility], [address] [place] [address] Bilateral impacted cerumen (Primary Dx) [...] Progress Notes * Marge Shields PA-C - 04/22/2020 0930 EDT .Luis Clayton presents today for management [...] Primary Impacted cerumen documented in this encounter Discontinued Medications Medication Sig Discontinue Reason Start Date End Da te albuterol 90 mcg/actuation inhaler Inhale 2 Puffs as directed 3 times daily. Therapy completed 12/04/2019 04/22/2020 benzonatate (TESSALON) 100 mg capsule Take 1 Cap by mouth 3 times daily as needed for Cough. 11/03/2019 04/22/2020 guaifenesin-codeine (GUAIFENESIN AC) 100-10 mg/5 mL liquid Take 5 mL by mouth every 4 hours as needed for Cough. Daily Max: 30 mL Therapy completed 12/04/2019 04/22/2020 documented as of this encounter Care Teams Valet Parking Attendant Relationship Specialty Start Date End Date Ya Yee MD [address] [place] [phone] PCP - General 02/23/16 10/02/21 documented as of this encounter
--- OUTSIDE RECORDS SUMMARY | 2024-03-02 02:24 | XMS_ITS | Encounter Summary ---
Author Organization [facility] Address [address] [place] [address] Care Team Providers Care Bulk Intake Worker Name Role Phone Ya Yee MD Primary Care Provider [phone] [phone] Reason for Visit * Reason Onset Date Comments URI 11/03/2019 Encounter Details Date Type Department Care Team (Late st Contact Info) Description 11/03/2019 Telephone [facility] Adult Primary Care - [address] [phone] Ya Yee MD [address] [place] [phone] URI Social History Tobacco Use Types Packs/Day Years [...] Dispensed Refills Start Date End Da te benzonatate (TESSALON) 100 mg capsule Take 1 Cap by mouth 3 times daily as needed for Cough. 30 Cap 11/03/2019 04/22/2020 documented in this encounter Miscellaneous Notes * Telephone Encounter - Jone Jung RN - 11/03/2019 1207 EDT Outgoing call to patient. Notified him off the message below from Dr. Yee with a timestamp of 1148. Patient is in agreement to try benzonatate. Will continue to push fluids and monitor for any fever/SOB. Will call if fever/SOB develop. Patient verbalized understanding without any barriers to learning noted. JONE JUNG RN * Telephone Encounter - Ya Yee MD - 11/03/2019 1148 EDT I Would recommend benzonatate. I don't think he needs testing for covid-19, he is afebrile and symptoms more c/w uri. I have sent script for tessalon to pharmacy. Thanks * Telephone Encounter - Jone Jung RN - 11/03/2019 1126 EDT Outgoing call to patient: Came on really fast, within 12 hours went from really bad sore throat to congestion about two weeksago. Cough productive X 2 weeks- off white productive. A little SOB, only notice sometimes. Borderline wheezing. Chest is tight. Sinus congestion, discharge is more yellow in color, but doesn't seem like a sinus infection to patient. No sinus tenderness. No sinus headache. Sinus sx is only mild annoyance, not really worried about them. Worried about cough. No fever. Sore throat comes and goes, but not horrible. In [place] the end of September. Traveled via airplane, changed in [facility] out of [place]. Has family down there, so only visiting family not tourist attractions. No know exposure to anyone with COVID-19. Tried tylenol and ibuprofen. Has humidifier running all time. Hasn't tried any OTC cough medicine. Plan: Routed to PCP to review and advise. Patient does have dx of HTN and hasn't tried any OTC cough meds yet. He would use [facility] on [address] for any medications. 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 Author LDL < 100 Result Component Hyperlipidemia 113( 9 9:29 EDT) No Colleen Arora documented as of this encounter Visit Diagnoses Not on filedocumented in this encounter Care Teams Bulk Intake Worker Relationship Specialty Start Date End Date Ya Yee MD [address] [place] [phone] PCP - General 02/23/16 10/02/21 documented as of this encounter
--- OUTSIDE RECORDS SUMMARY | 2024-03-02 02:24 | XMS_ITS | Encounter Summary ---
Author Organization [facility] Address [address] [place] [address] Care Team Providers Care Weight And Test Bar Clerk Name Role Phone Ya Yee MD Primary Care Provider [phone] [phone] Reason for Visit * Reason Comments Cough Encounter Details Date Type Department Care Team (Late st Contact Info) Description 12/04/2019 13:15 EDT Telemedicine [facility] Adult Primary Care - [address] [phone] Ya Yee MD [address] [place] [phone] Cough (Primary Dx) Social History Tobacco Use Types [...] as of this encounter Progress Notes * Ya Yee MD - 12/04/2019 1315 EDT TELEMEDICINE VISIT Reason for call: Cough Patient Active Problem List Diagnosis ??? Sensorineural hearing loss ??? Benign neoplasm of eyelid including canthus ??? Proteinuria ??? Benign essential hypertension ??? Degenerative joint disease involving multiple joints ??? Hyperlipidemia ??? Diverticulosis of large intestine without hemorrhage HPI: Telephone visit with patient. He reports a cough for about a month. It started out as a productive cough about a month ago. He never had a fever. The cough has improved significantly per patient. It is now dry and he is not coughing as often. However he is now developed some more chest and throat congestion. He denies sinus congestion. He denies wheezing. He thinks he is short of breath but only because of coughing. He denies any chest heaviness or pain. He is not been febrile this entire time.He does feel little bit under the weather and fatigued. He is sleeping well. He denies any other symptoms including GI complaints, myalgias ear or throat pain. He has not had any known sick contacts.He is a non- smoker and has no history of any lung disease. ROS As above Current Outpatient Medications: benzonatate (TESSALON) 100 mg capsule Cholecalciferol, Vitamin D3, 400 unit tablet No current facility-administered medications for this visit. No Known Allergies Family History: Relevant family history includes Cancer in his brother; Dementia in his mother; Diabetes in his paternal uncle; Heart Disease in his paternal uncle; Heart Disease (age of onset: 61) in his father; High Blood Pressure in his father; High Cholesterol in his father; Prostate Cancer (age of onset: 59) in his brother. Social History Tobacco Use ??? Smoking status: Never Smoker ??? Smokeless tobacco: Never Used ??? Tobacco comment: Quit as a teenager Substance Use Topics ??? Alcohol use: Yes Alcohol/week: 8.0 standard drinks Types: 8 Glasses of wine per week ??? Drug use: No Social History Social History Narrative ??? Not on file OBJECTIVE: There were no vitals taken for this visit. General: No acute distress PULM: Speaking in complete sentences. No increased work of breathing. Neuro/Psych: Alert, Oriented, Appropriate, Conversant. Results Reviewed I have reviewed the laboratory and imaging data below: Results for orders placed or performed in [...] 93 70 - 100 mg/dl Fasting? YES ASSESSMENT and PLAN: Diagnoses and all orders for this visit: Cough: Given duration of symptoms and chest congestion I do think that a visit to the [facility] is indicated. Patient would benefit from lung exam and possible COVID-19 testing. He has not been febrile buthas had a cough for several weeks. We will hold off on any antibiotic therapy until patient is evaluated in person. -[facility] visit already scheduled This visit was conducted by telephone. I spent a total of 10 minutes in discussion with the patientas described in the progress note. Patient location: Home Provider location at time of visit: Office The following staff were involved in the clinical care at this visit: Ya Yee MD *The concept of ???Telemedicine?? has been described to the patient.? Patient has been informed ofthe anticipated benefits and possible risks.? Patient understands the information provided regarding telemedicine, has had the opportunity to ask questions about this information, and all questions have been answered to patient's satisfaction. Patient consents for the use of telemedicine in his/hermedical care and authorizes the transmission of any relevant medical information to providers and their staff involved in patient's medical or mental health care. Please Note: Part or all of this document was created with voice recognition software. The note hasbeen reviewed for accuracy; however typographical errors may be present. documented in this encounter Plan of Treatment Not on file documented as of this encounter Goals Goal Patient Goal Type Associated Problems Recent Progress Patient-Stated? Author LDL < 100 Result Component Hyperlipidemia 113( 9 9:29 EDT) Colleen Gracia documented as of this encounter Visit Diagnoses Diagnosis Cough- Primary documented in this encounter Care Teams Weight And Test Bar Clerk Relationship Specialty Start Date End Date Ya Yee MD [address] [place] [address] PCP - General 02/23/16 10/02/21 documented as of this encounter
--- OUTSIDE RECORDS SUMMARY | 2024-03-02 02:24 | XMS_ITS | Encounter Summary ---
Author Organization [facility] Address [address] [place] [address] Care Team Providers Care Guard Supervisor Name Role Phone Ya Yee MD Primary Care Provider [phone] [phone] Reason for Visit * Reason Comments Follow-up 3mo f/u Cerumen Encounter Details Date Type Department Care Team (Late st Contact Info) Description 07/29/2019 11:35 EST Office Visit [facility] ENT- [address] [address] Chetna Noble MD [address] [facility], [address] [place] [address] Bilateral impacted cerumen (Primary Dx) [...] Progress Notes * Chetna Noble MD - 07/29/2019 1135 EST Here for removal of cerumen impaction. No problems since his last visit 3 months ago. PE - cerumen removed with suction and microscope, obstruction both canals Right ear - canal and TM wnl once cerumen removed Left ear - canals and TM wnl once cerumen removed A - cerumen removed P - follow up in 3 months documented in this encounter Plan of Treatment Not on file documented as of this encounter Goals Goal Patient Goal Type Associated Problems Recent Progress Patient-Stated? Author LDL < 100 Result Component Hyperlipidemia 113( 9 9:29 EDT) Colleen Gracia documented as of this encounter Visit Diagnoses Diagnosis Bilateral impacted cerumen- Primary Impacted cerumen documented in this encounter Care Teams Guard Supervisor Relationship Specialty Start Date End Date Ya Yee MD [address] [place] [phone] PCP - General 02/23/16 10/02/21 documented as of this encounter
--- OUTSIDE RECORDS SUMMARY | 2024-03-02 02:24 | XMS_ITS | Encounter Summary ---
Author Organization [facility] Address [address] [place] [address] Care Team Providers Care Irrigation Manager Name Role Phone Ya Yee MD Primary Care Provider [phone] [phone] Encounter Details Date Type Department Care Team (Late st Contact Info) Description 04/30/2019 9:55 EDT - 04/30/2019 12:40 EDT Hospital Encounter [facility] Endoscopy Outpatient [address] [place], [place] [address] Prem eHarn MD [address] [facility] [address] [place] [address] Discharge Disposition: Home or Self Care Social [...] Sign Reading Time Taken Comments Blood Pressure 129/78 04/30/2019 1202 EDT Pulse - - Temperature 36.2 ??C (97.2 ??F) 04/30/2019 1145 EDT Respiratory Rate 20 04/30/2019 1202 EDT Oxygen Saturation 98% 04/30/2019 1202 EDT Inhaled Oxygen Concentration - - Weight 72.6 kg (160 lb) 04/30/2019 1031 EDT Height 177.8 cm (5' 10) 04/30/2019 1031 EDT Body Mass Index 22.96 04/30/2019 1031 EDT documented in this encounter Functional Status [...] as of this encounter Discharge Diagnoses Diagnosis Z12.11 Encounter for screening for malignant neoplasm of colon-Z12.11[ICD-10-CM] Z86.010 Personal history of colonic polyps-Z86.010[ICD-10-CM] K57.30 Diverticulosis of large intestine without perforation or abscess without bleeding-K57.30[ICD-10-CM] I10 Essential (primary) hypertension-I10[ICD-10-CM] documented in this encounter Medications at Time of Discharge Medication Sig Dispensed Refills Start Date End Date Cholecalciferol, Vitamin D3, 400 unit tablet Take 1,000 Units by mouth daily. polyethylene glycol (GOLYTELY;NULYTELY) 236-22.74-6.74 -5.86 gram suspension Instructions mailed once procedure scheduled. Questions: [facility] Gastroenterology: [phone] or GI Doctor's Office. 4000 mL 11/03/2018 05/02/2019 documented as of this encounter Discharge Disposition Disposition Code Departure Means Destination Home or Self Care documented in this encounter H&P Notes * Prem Hearn MD - 04/30/2019 1112 EDT Endoscopy Sedation for Procedure History & Physical Date: 04/30/2019 Time: 11:12 Location: [facility] Endo Planned Procedure: Colonoscopy Chief Complaint/Indications for Procedure: screening, possible polyp hx History Previous Complication with Sedation and/or Anesthesia? No Allergies: No Known Allergies Current Medications: Current Outpatient Medications: Cholecalciferol, Vitamin D3, 400 unit tablet polyethylene glycol (GOLYTELY;NULYTELY) 236-22.74-6.74 -5.86 gram suspension Current Facility-Administered Medications: atropine 0.1 mg/mL syringe 0.25-1 mg intravenous PRN fentaNYL citrate (PF) injection 25-250 mcg intravenous Once PRN lactated ringers (LR) infusion intravenous CONTINUOUS lidocaine (PF) 10 mg/mL (1 %) injection 2 mg intradermal PRN lidocaine (XYLOCAINE) 2 % viscous solution 15 mL oral Once PRN meperidine (PF) (DEMEROL) injection 25-200 mg intravenous Once PRN midazolam (MDV) (VERSED) injection 1-10 mg intravenous Once PRN ondansetron (PF) (ZOFRAN) injection 2-4 mg intravenous PRN sodium chloride 0.9 % (flush) flush 3 mL intravenous PRN Past Medical History: Past Medical History: Diagnosis Date ??? Arthritis neck ??? Benign essential hypertension 03/13/2013 Social History: Past Surgical History: Procedure Laterality Date ??? FACIAL COSMETIC SURGERY Had a lesion removed just above lip on 10/02/10 ??? HERNIA REPAIR ??? TONSILLECTOMY Social History Tobacco Use ??? Smoking status: Never Smoker ??? Smokeless tobacco: Never Used ??? Tobacco comment: Quit as a teenager Substance Use Topics ??? Alcohol use: Yes Alcohol/week: 8.0 standard drinks Types: 8 Glasses of wine per week Family History: Family History Problem Relation Age of Onset ??? Prostate Cancer Brother 59 ??? Cancer Brother prostate ??? Dementia Mother Alzheimers ??? Heart Disease Father 61 [place] ??? High Blood Pressure Father ??? High Cholesterol Father ??? Heart Disease Paternal Uncle ??? Diabetes Paternal Uncle Review of Systems as pertinent: Physical Exam Vital Signs: BP (!) 149/87 Temp 35.8 ??C (96.4 ??F) (Tympanic) Resp 16 Ht 177.8 cm (70) Wt72.6 kg (160 lb) SpO2 97% BMI 22.96 kg/m?? Heart Examination: Cardiac Regularity: Regular Respiratory Examination: Respiratory Pattern: Regular Breath Sounds Right: Clear Breath Sounds Left: Clear Abdominal Examination: Soft, non-tender, bowel sounds normal, no masses, no organomegaly Additional physical exam related to the proposed procedure, patient activity, disease state and treatment as pertinent: Assessment Previous complications with sedation or anesthesia?: No Airway Concerns: None Anesthesia Classification: ASA 2 Plan: Proceed with sedation for procedure Fasting Time: Time of last liquid intake: 0750 Date of Last Liquid Intake: 04/30/19 Time of last solid intake: 1900 Date of last solid intake: 04/28/19 Patient Appropriate Candidate for Planned Sedation?: Yes Prem Hearn MD 04/30/2019 11:12 documented in this encounter Plan of Treatment Not on file documented as of this encounter Goals Goal Patient Goal Type Associated Problems Recent Progress Patient-Stated? Author LDL < 100 Result Component Hyperlipidemia 113( 9 9:29 EDT) No Colleen Arora documented as of this encounter Procedures Procedure Name Priority Date/Time Associated Diagnosis Comments COLONOSCOPY PROCEDURE Routine 04/30/2019 documented in this encounter Results * COLONOSCOPY PROCEDURE (04/30/2019) Anatomical Region Laterality [...] ??Total sedation time was 16 ?? minutes. [place] Bowel Prep Right Colon: 1 ? Transverse [...] Prem Hearn MD GI PROCEDURE ORDERA BLES documented in this encounter Visit Diagnoses Not on filedocumented in this encounter Administered Medications Inactive Administered Medications - up to 3 most recent administrations Medication Order MAR Action Action Date Dose Rate Site lactated ringers (LR) infusion 30 mL/hr, intravenous, CONTINUOUS, Starting on Marilu 04/30/19 at 1045, Until Marilu 04/30/19 at 1441, Routine, Preprocedure New Bag 04/30/2019 10:48 EDT 30 mL/hr 30 mL/hr meperidine (PF) (DEMEROL) injection 25-200 mg 25-200 mg, intravenous, ONCE PRN, 1 dose, Starting on Marilu 04/30/19 at 1026, Until Marilu 04/30/19 at 1139, Other, sedation, Routine, Intraprocedure Given 04/30/2019 11:39 EDT 75 mg midazolam (MDV) (VERSED) injection 1-10 mg 1-10 mg, intravenous, ONCE PRN, 1 dose, Starting on Marilu 04/30/19 at 1026, Until Marilu 04/30/19 at 1139, Sedation, Routine, Intraprocedure Given 04/30/2019 11:39 EDT 3 mg documented in this encounter Orders Medications Ordered That Joe ht Not Have Been Administered Count Last Ordered Date First Ordered Date atropine 0.1 mg/mL syringe 0.25-1 mg 1 04/19 fentaNYL citrate (PF) injection 25-250 mcg 1 04/30/2019 lidocaine (PF) 10 mg/mL (1 % ) injection 2 mg 1 04/30/2019 lidocaine (XYLOCAINE) 2 % vi scous solution 15 mL 1 04/30/2019 ondansetron (PF) (ZOFRAN) injection 2-4 mg 1 04/30/2019 sodium chloride 0.9 % (flush) flush 3 mL 1 04/30/2019 Transfer Count Last Ordered Date First Orde red Date NOTIFY PPS OF DISCHARGE COMPLETE 1 04/30/20 19 Discharge Count Last Ordered Date First Orde red Date DISCHARGE PATIENT 1 04/30/2019 documented in this encounter Care Teams Irrigation Manager Relationship Specialty Start Date End Date Ya Yee MD [address] [place] [phone] PCP - General 02/23/16 10/02/21 documented as of this encounter
--- OUTSIDE RECORDS SUMMARY | 2024-03-02 02:24 | XMS_ITS | Encounter Summary ---
Author Organization [facility] Address [address] [place] [address] Care Team Providers Care I O Psychologist Name Role Phone Ya Yee MD Primary Care Provider +1 [phone] Encounter Details Date Type Department Care Team (Late st Contact Info) Description 03/03/2020 8:20 EDT Phlebotomy Only [facility] [address] [place], [place] [phone] Pearl Restorer, [facility] Phlebotomy Essential tremor (Primary Dx) Social History Tobacco [...] Procedure Name Priority Date/Time Associated Diagnosis Comments COMPLETE BLOOD COUNT Routine 03/03/2020 8:25 EDT Essential tremor FOLATE Routine 03/03/2020 8:25 EDT Essential tremor VITAMIN B12 Routine 03/03/2020 8:25 EDT Essential tremor COMPREHENSIVE METABOLIC PANEL (CMP) Routine 03/03/2020 8:25 EDT Essential tremor documented in this encounter Results * COMPLETE BLOOD COUNT (03/03/2020 8:25 EDT) WBC 5.32 4.00 - 10.40 K/cmm 03/03/2020 9:09 [facility] RBC 4.84 4.36 - 5.78 M/cmm 03/03/2020 9:09 [facility] Hemoglobin 15.7 13.8 - 17.3 gm/dL 03/03/2020 9:09 [facility] HCT 45.3 39.5 - 50.2 % 03/03/2020 9:09 [facility] MCV 94 81 - 95 fl 03/03/2020 9:09 [facility] MCH 32.4 27.6 - 33.0 pg 03/03/2020 9:09 [facility] MCHC 34.7 32.8 - 36.4 gm/dL 03/03/2020 9:09 [facility] RDW-CV 12.6 <14.2 % 03/03/2020 9:09 [facility] RDW-SD 43.3 <46.0 fl 03/03/2020 9:09 [facility] PLT 232 141 - 377 K/cmm 03/03/2020 9:09 [facility] MPV 11.0 9.5 - 12.7 fl 03/03/2020 9:09 EDT [facility] Blood VENOUS BLOOD / Unknown Venipuncture / Unknown 03/03/2020 8:25 EDT 03/03/2020 8:25 EDT Maryellen Cooper SENIOR UNDERWRITER HEMATOLOGY & PF4 ORD ERABLES Performing Organization Address [facility] Co de Phone Number [facility] [address] [place] [address] * FOLATE (03/03/2020 8:25 EDT) Folate 8.1 See Note ng/mL 03/03/2020 12:34 EDT [facility] Comment: Reference Ranges for Folate: Deficient: ?< 3.4 ng/mL Indeterminate: ??3.4 - 5.4 ng/mL Normal: ? > 5.4 ng/mL The results of this assay can be falsely elevated due to the consumption of Biotin. Blood VENOUS BLOOD / Unknown Venipuncture / Unknown 03/03/2020 8:25 EDT 03/03/2020 8:25 EDT Maryellen Cooper NP CHEMISTRY & BLOOD GA S ORDERABLES Performing Organization Address [facility] Co de Phone Number [facility] [address] [place] [address] * (ABNORMAL) VITAMIN B12 (03/03/2020 8:25 EDT) Vitamin B12 162(L) 211 - 911 pg/mL 03/03/2020 12:30 EDT [facility] Blood VENOUS BLOOD / Unknown Venipuncture / Unknown 03/03/2020 8:25 EDT 03/03/2020 8:25 EDT Maryellen Cooper NP CHEMISTRY & BLOOD GA S ORDERABLES Performing Organization Address [facility] Co de Phone Number [facility] [address] [place] [address] * COMPREHENSIVE METABOLIC PANEL (CMP) (03/03/2020 8:25 EDT) Sodium 139 136 - 145 mEq/L 03/03/2020 9:48 [facility] Potassium 4.4 3.5 - 5.0 mEq/L 03/03/2020 9:48 [facility] Chloride 102 96 - 110 mEq/L 03/03/2020 9:48 [facility] CO2 Total 30 22 - 32 mEq/L 03/03/2020 9:48 [facility] Glucose 90 70 - 100 mg/dL 03/03/2020 9:48 [facility] BUN 12 10 - 26 mg/dL 03/03/2020 9:48 [facility] Creatinine 0.69 0.66 - 1.25 mg/dL 03/03/2020 9:48 [facility] eGFR 96 >60 mL/min/1.7 3m2 03/03/2020 9:48 [facility] Comment:eGFR calculated george maciel CKD-EPI equation for non- Americans. Multiply eGFR by 1.16 for patients. Total Protein 6.9 6.3 - 8.2 g/dL 03/03/2020 9:48 [facility] Albumin 4.3 3.4 - 4.9 g/dL 03/03/2020 9:48 [facility] Alkaline Phosphatase 58 38 - 126 U/L 03/03/2020 9:48 [facility] AST 24 15 - 46 U/L 03/03/2020 9:48 [facility] ALT 19 <50 U/L 03/03/2020 9:48 [facility] Bilirubin, Total 0.8 <1.4 mg/dL 03/03/20 20 9:48 [facility] Calcium 9.2 8.5 - 10.5 mg/dL 03/03/2020 9:48 [facility] Calculated Calcium 9.0 8.5 - 10.5 mg/dL 03/03/2020 9:48 [facility] Blood VENOUS BLOOD / Unknown Venipuncture / Unknown 03/03/2020 8:25 EDT 03/03/2020 8:25 EDT Maryellen Cooper SENIOR UNDERWRITER CHEMISTRY & BLOOD GA S ORDERABLES [facility] [address] [place] [address] documented in this encounter Visit Diagnoses Diagnosis Essential tremor- Primary Essential and other specified forms of tremor documented in this encounter Care Teams I O Psychologist Relationship Specialty Start Date End Date Ya Yee MD [address] [place] [phone] PCP - General 02/23/16 10/02/21 documented as of this encounter
--- OUTSIDE RECORDS SUMMARY | 2024-03-02 02:24 | XMS_ITS | Encounter Summary ---
Author Organization [facility] Address [address] [place] [address] Care Team Providers Care Manager Educational Name Role Phone Ya Allan MD Primary Care Provider +1 [phone] Reason for Visit * Reason Onset Date Comments URI 12/04/2019 Encounter Details Date Type Department Care Team (Late st Contact Info) Description 12/04/2019 Telephone [facility] Adult Primary Care - [address] [phone] Ya Allan MD [address] [place] [phone] URI Social History Tobacco Use Types [...] Miscellaneous Notes * Telephone Encounter - Ya Allan MD - 12/04/2019 1332 EDT Telephone encounter/visit documented. * Telephone Encounter - Lizbeth Vera, RN - 12/04/2019 1242 EDT Luis states, the cough is now dry. He is not coughing as often. C/o throat congestion, chest tightness and slight shortness of breath. No c/o a fever. Advised due to the length of the symptoms, that an [facility] visit would probably be warranted. [facility] visit booked, advised that Dr. Allan will need to call him first at 1:15 to discuss * Telephone Encounter - Anne Miller - 12/04/2019 1220 EDT Pt continues with the tightness in his chest, chest congestion, cough has gotten better but is now a dry cough, no fever He called us around 11/03/19 and we gave him benzonatate documented in this encounter Plan of Treatment Not on file documented as of this encounter Goals Goal Patient Goal Type Associated Problems Recent Progress Patient-Stated? Author LDL < 100 Result Component Hyperlipidemia 113( 9 9:29 EDT) No Colleen Arora documented as of this encounter Visit Diagnoses Not on filedocumented in this encounter Care Teams Manager Educational Relationship Specialty Start Date End Date Ya Allan MD [address] [place] [phone] PCP - General 02/23/16 10/02/21 documented as of this encounter
--- OUTSIDE RECORDS SUMMARY | 2024-03-02 02:24 | XMS_ITS | Encounter Summary ---
Author Organization [facility] Address [address] [place] [address] Care Team Providers Care Rocket Scientist Name Role Phone Ya Yee MD Primary Care Provider +1 [phone] Encounter Details Date Type Department Care Team (Latest Contact Info) Description 10/28/2019 Travel Social History Tobacco Use Types Packs/Day [...] on filedocumented in this encounter Care Teams Rocket Scientist Relationship Specialty Start Date End Date Ya Yee MD [address] [place] [phone] PCP - General 02/23/16 10/02/21 documented as of this encounter
--- OUTSIDE RECORDS SUMMARY | 2024-03-02 02:24 | XMS_ITS | Encounter Summary ---
Author Organization [facility] Address [address] [place] [address] Care Team Providers Care Wildlife Science Professor Name Role Phone Ya Yee MD Primary Care Provider [phone] [phone] Reason for Visit * Reason Onset Date Comments Results 03/04/2020 Vitamin B12 defi ciency Encounter Details Date Type Department Care Team (Late st Contact Info) Description 03/04/2020 Telephone [facility] Adult Primary Care - [address] [phone] Maryellen Cooper, ELIANA [address] [place] [phone] Results (Vitamin B12 deficiency) Social History Tobacco Use Types Packs/Day Years [...] encounter Miscellaneous Notes * Telephone Encounter - Maryellen Cooper APRN - 03/04/2020 2476 EDT Called and left message for patient that his Vitamin B12 came back low. While I'm not convinced that this may be the be all, end all of why he is having tremors, I feel that it's worth it to correct the deficiency moving forward- with with supplement or Vit B12- enriched foods. documented in this encounter Plan of Treatment Not on file documented as of this encounter Goals Goal Patient Goal Type Associated Problems Recent Progress Patient-Stated? Author LDL < 100 Result Component Hyperlipidemia 113( 9 9:29 EDT) No Colleen Arora documented as of this encounter Visit Diagnoses Not on filedocumented in this encounter Care Teams Wildlife Science Professor Relationship Specialty Start Date End Date Ya Yee MD [address] [place] [phone] PCP - General 02/23/16 10/02/21 documented as of this encounter
--- OUTSIDE RECORDS SUMMARY | 2024-03-02 02:24 | XMS_ITS | Encounter Summary ---
Author Organization [facility] Address [address] [place] [address] Care Team Providers Care Hvac Sales Representative Name Role Phone Ya Yee MD Primary Care Provider [phone] [phone] Reason for Visit * Reason Onset Date Comments Appointment Related 04/28/2019 Labs Encounter Details Date Type Department Care Team (Late st Contact Info) Description 04/28/2019 Telephone [facility] Primary [facility] - [address] [id number] Ya Yee MD [address] [place] [phone] Appointment Related (Labs) Social History Tobacco Use Types Packs/Day Years [...] encounter Miscellaneous Notes * Telephone Encounter - Ondina Mae - 04/28/2019 1413 EDT Outgoing call to patient. LM on about upcoming appt. Also to have fasting lab work prior to appt. documented in this encounter Plan of Treatment Not on file documented as of this encounter Goals Goal Patient Goal Type Associated Problems Recent Progress Patient-Stated? Author LDL < 100 Result Component Hyperlipidemia 113( 9 9:29 EDT) No Colleen Arora documented as of this encounter Visit Diagnoses Not on filedocumented in this encounter Care Teams Hvac Sales Representative Relationship Specialty Start Date End Date Ya Yee MD [address] [place] [phone] PCP - General 02/23/16 10/02/21 documented as of this encounter
--- OUTSIDE RECORDS SUMMARY | 2024-03-02 02:24 | XMS_ITS | Encounter Summary ---
Author Organization Health system Address [address] [place] [address] Care Team Providers Care Post Tensioning Ironworker Helper Name Role Phone Ya Yee MD Primary Care Provider [phone] [phone] Encounter Details Date Type Department Care Team (Late st Contact Info) Description 11/03/2020 13:30 EDT Immunization [facility] Mobile Testing [address] [place] [address] Social History Tobacco Use Types Packs/Day Years [...] PF 0.3 ML IM (16 YRS+) 1 11/03/2020 documented in this encounter Care Teams Post Tensioning Ironworker Helper Relationship Specialty Start Date End Date Ya Yee MD [address] [place] [phone] PCP - General 02/23/16 10/02/21 documented as of this encounter
--- OUTSIDE RECORDS SUMMARY | 2024-03-02 02:24 | XMS_ITS | Encounter Summary ---
Author Organization [facility] Address [address] [place] [address] Care Team Providers Care Garment Alteration Examiner Name Role Phone Ya Yee MD Primary Care Provider [phone] [phone] Reason for Visit * Reason Comments Follow-up Cerumen Impaction Encounter Details Date Type Department Care Team (Late st Contact Info) Description 11/03/2020 10:00 EDT Office Visit [facility] ENT[facility] [address] [place] [address] Marge Shields, PA-C [address] [facility], [address] [place] [address] Bilateral impacted cerumen (Primary Dx) [...] Progress Notes * Marge Shields PA-C - 11/03/2020 1000 EDT .Luis Clayton presents today for management [...] tolerated this procedure well. Complications: None Findings: right TM and canal wnl once cerumen removed. Unable to remove deep cerumen on left, adhered to TM. Assess: Cerumen impaction Plan: Follow up visit 2 weeks, debrox in left ear daily. return for removal. Marge Shields PA-C documented in this encounter Plan of Treatment Not on file documented as of this encounter Goals Goal Patient Goal Type Associated Problems Recent Progress Patient-Stated? Author LDL < 100 Result Component Hyperlipidemia 113( 9 9:29 EDT) No Colleen Arora documented as of this encounter Visit Diagnoses Diagnosis Bilateral impacted cerumen- Primary Impacted cerumen documented in this encounter Care Teams Garment Alteration Examiner Relationship Specialty Start Date End Date Ya Yee MD [address] [place] [phone] PCP - General 02/23/16 10/02/21 documented as of this encounter
--- OUTSIDE RECORDS SUMMARY | 2024-03-02 02:25 | XMS_ITS | Encounter Summary ---
Author Organization [facility] Address [address] [place] [address] Care Team Providers Care Power System Operator Name Role Phone Ya Pena MD Primary Care Provider [phone] Reason for Visit * Reason Onset Date Comments Appointment Related 01/16/2017 Encounter Details Date Type Department Care Team (Late st Contact Info) Description 01/16/2017 Telephone [facility] Rehabilitation Therapy - Medical Office Building [address] [place] [phone] Therapy, Physical Appointment Related Social History Tobacco Use Types [...] visiting a doctor's office or shopping? No 08/27/2016 Cognitive Status Response Date of Assessm ent Because of a physical, menta l, or emotional condition, does this person have serious difficulty concentrating, remembering, or making decisions? No 08/27/2016 documented as of this encounter Miscellaneous Notes * Telephone Encounter - Anne Ascencio - 01/16/2017 1120 EDT [facility] - MEDICAL OFFICE BUILDING [address] [facility] [address] Telephone Intake Information for Scheduling NEW Patients for Therapy Script/referral: IN PRISM Referring Provider: Moni PENA Diagnosis: BPPV Do you have constant spinning? NO . Are you taking medication for this problem? NOT YET, BUT HAS BEEN PRESCRIBED If YES, what type? Patient is taking Meclizine for vertigo, he is aware that it is helpful for him not to take it day of appointment and was advised to call his doctor before skipping a dose. We generally recommend that patients have a moving van driver on the day of the appointment, because the treatment can occasionally make someone feel worse for a little while. PATIENT ADVISED Symptoms generally decrease quite quickly so an alternative to having a moving van driver might be to wait in our waiting room for a while before leaving. Primary Insurance: [employer]/[facility] ([facility]) Secondary Insurance: MEDICARE B IMPORTANT: Unless Medicare, Medicaid or [facility], TSS must verify insurance for coverage of Canalith Repositioning Maneuver [id number]. Is this service covered? YES If Medicare: (PATIENT DID NOT INDICATE HE HAD MEDICARE WHEN HE CALLED TO MAKE THE APPOINTMENT). Have you received a letter from Medicare about the therapy cap? UNKNOWN Have you been seen in therapy since August first of this year? UNKNOWN Are you receiving any home health or [facility] services? UNKNOWN If the answer is YES -- contact [facility] for prior authorization. Must also ask whether home health agency is billing Part A or Part B. Notes/other: THE PATIENT WAS ASKED TO CHECK IN FOR PAPERWORK. Anne Ascencio 01/16/2017 documented in this encounter Plan of Treatment Not on file documented as of this encounter Goals Goal Patient Goal Type Associated Problems Recent Progress Patient-Stated? Author LDL < 100 Result Component Hyperlipidemia 113( 9:29 EDT) No Colleen Arora documented as of this encounter Visit Diagnoses Not on filedocumented in this encounter Care Teams Power System Operator Relationship Specialty Start Date End Date Ya Pnea MD [address] [place] [phone] PCP - General 02/23/16 10/02/21 documented as of this encounter
--- OUTSIDE RECORDS SUMMARY | 2024-03-02 02:25 | XMS_ITS | Encounter Summary ---
Author Organization [facility] Address [address] [place] [address] Care Team Providers Care Washing Machine Operator Name Role Phone Ya Yee MD Primary Care Provider [phone] Reason for Referral * PT/OT/ST (Routine) - Closed Specialty Diagnoses / Procedures Referred By [facility] Referred To Contact Rehab Therapies Diagnoses BPPV (benign paroxysmal positional vertigo), right Ya Yee MD [address] [place] [phone] [facility] Rehab Therapies [address] [place] [id number] Referral ID Status Reason Start Date Expiration Date V isits Requested Visits Authorized [id number] Closed Specialty Services Required 01/16/2017 1 1 Question Answer Reason for Request: 66yo man with suspected BPPV Reason for Visit * Reason Comments Fatigue with dizziness and n auseous - 10 days ago Headache slight headache top left side of head Encounter Details Date Type Department Care Team (Late st Contact Info) Description 01/16/2017 10:00 EDT Office Visit [facility] Adult Primary Care - [address] [address] Ya Yee MD [address] [place] [phone] BPPV (benign paroxysmal positional vertigo), right (Primary Dx) Social History Tobacco Use Types [...] Sign Reading Time Taken Comments Blood Pressure 142/92 01/16/2017 0958 EDT Pulse 74 01/16/2017 09 EDT Temperature 36.1 ??C (97 ??F) 01/16/2017 09 EDT Respiratory Rate - - Oxygen Saturation - - Inhaled Oxygen Concentration - - Weight 75.3 kg (166 lb) 01/16/2017957 EDT Height - - Body Mass Index 23.82 08/27/2016 1003 EST documented in this encounter Functional Status [...] No 08/27/2016 documented as of this encounter Patient Instructions * Patient Instructions* Ya Yee MD - 01/16/2017 10:00 EDT Images from the original note were not included. [facility] Patient Instructions Benign Paroxysmal Positional Vertigo (BPPV): Care Instructions Your Care Instructions Benign paroxysmal positional vertigo, also called BPPV, is an inner ear problem. It causes a spinning or whirling sensation when you move your head. This sensation is called vertigo. The vertigo usually lasts for less than a minute. People often have vertigo spells for a few days or weeks. Then the vertigo goes away. But it may come back again. The vertigo may be mild, or it may be bad enough to cause unsteadiness, nausea, and vomiting. When you move, your inner ear sends messages to the brain. This helps you keep your balance. Vertigo can happen when debris builds up in the inner ear. The buildup can cause the inner ear to send thewrong message to the brain. Your doctor may move you in different positions to help your vertigo get better faster. This is called the Leia maneuver. Your doctor may also prescribe medicines or exercises to help with your symptoms. Follow-up care is a goldman part of your treatment and safety. Be sure to make and go to all appointments, and call your doctor if you are having problems. It's also a good idea to know your test resultsand keep a list of the medicines you take. How can you care for yourself at home? ?? If your doctor suggests that you do Hui-Daroff exercises: ?? Sit on the edge of a bed or sofa. Quickly lie down on the side that causes the worst vertigo. Lie on your side with your ear down. ?? Stay in this position for at least 30 seconds or until the vertigo goes away. ?? Sit up. If this causes vertigo, wait for it to stop. ?? Repeat the procedure on the other side. ?? Repeat this 10 times. Do these exercises 2 times a day until the vertigo is gone. When should you call for help? Call 911 anytime you think you may need emergency care. For example, call if: ?? You have symptoms of a stroke. These may include: ?? Sudden numbness, tingling, weakness, or loss of movement in your face, arm, or leg, especially on only one side of your body. ?? Sudden vision changes. ?? Sudden trouble speaking. ?? Sudden confusion or trouble understanding simple statements. ?? Sudden problems with walking or balance. ?? A sudden, severe headache that is different from past headaches. Call your doctor now or seek immediate medical care if: ?? You have new or worse nausea and vomiting. ?? You have new symptoms such as hearing loss or roaring in your ears. Watch closely for changes in your health, and be sure to contact your doctor if: ?? You are not getting better as expected. ?? Your vertigo gets worse. Where can you learn more? Go to www.food.de.net/[employer] [email or web address] or log into your [employer] account at [email or web address].[facility]mmedcenter.org. Enter P372 in the search box to learn more about Benign Paroxysmal Positional Vertigo (BPPV): CareInstructions. Current as of: March 16, 2016 Content Version: 11.2 ?? [id number] [employer]. Care instructions adapted under license by , Inc. If you have questions about a medical condition or this instruction, always ask your healthcare professional. [employer] disclaims any warranty or liability foryour use of this information. documented in this encounter Ordered Prescriptions Prescription Sig Dispensed Refills Start Date End Da te meclizine (ANTIVERT) 12.5 mg tablet Take 1-2 Tabs by mouth 3 times daily as needed for Dizziness. 30 Tab 1 01/16/2017 03/03/2018 documented in this encounter Progress Notes * Ya Yee MD - 01/16/2017 1000 EDT Patient ID: Luis Clayton is a 66 y.o. y.o. male Chief Complaint: Fatigue (with dizziness and nauseous - 10 days ago) and Headache (slight headache top left side of head) History of present Illness (HPI): 1 weeks ago dizziness and nausea and fatigue which he attributed to food poisoning. Improved but never went away and now is getting worse. Symptoms are ok with sitting down. But feels very unsteady when he stands- feels like things are shifting/spinning. Changes in position exacerbate it. Still nauseated. Eating and drinking ok. Also with headache on L top of head for the past few days. Feels like its on the surface.No ear pain, no change in hearing. No weakness, numbness, tingling in extremities. No f/c. Vision is ok. No confusion. No falls- but had a close call. Current Outpatient Prescriptions Medication Sig ??? ERGOCALCIFEROL, VITAMIN D2, (VITAMIN D ORAL) Take by mouth daily. ??? meclizine (ANTIVERT) 12.5 mg tablet Take 1-2 Tabs by mouth 3 times daily as needed for Dizziness. No Known Allergies Review of Systems: System Neg Pos Comments Constitutional x Eyes x ENT x Cardiovascular x Pulmonary x Gastrointestinal x Genitourinary x Musculoskeletal x Skin/breast x Neurological x vertigo Psychiatric x Endocrine x Hematologic Lymphatic x Allergic Immunologic x Objective: Physical Examination: BP (!) 142/92 Pulse 74 Temp 36.1 ??C (97 ??F) (Tympanic) Wt 75.3 kg (166 lb) BMI 23.82 kg/m2 General: Alert, cooperative, no distress. Head: Normocephalic, without obvious abnormality. Eyes: Conjunctivae clear. PERRL, EOMs intact. Ears: Normal TMs and external ear canals both ears. Hearing grossly nl. Nose: Nares normal. Septum midline. Mucosa normal. No drainage or sinus tenderness. Neck: Supple, symmetrical, trachea midline, no adenopathy, thyroid: no enlargement, tenderness or nodules, no carotid bruit and no JVD. Neurologic: CNII-XII intact. Normal strength, sensation and reflexes throughout. [place] (abbreviated due to room configuration) positive with symptoms when turning to the right. LABS: Results for orders placed or performed in visit on 09/03/16 HEMAGRAM Result Value Ref Range WBC 4.90 4.0 - 10.4 K/cmm RBC 4.90 4.36 - 5.78 M/cmm Hemoglobin 15.9 13.8 - 17.3 gm/dl HCT 44.8 39.5 - 50.2 % MCV 91 81 - 95 fl MCH 32.4 27.6 - 33.0 pg MCHC 35.5 32.8 - 36.4 gm/dl RDW-CV 12.4 11.8 - 14.1 % RDW-SD 41.1 36.5 - 45.9 fl PLT 279 141 - 377 K/cmm MPV 10.9 9.5 - 12.7 fl THYROID CASCADE Result Value Ref Range TSH 1.43 0.55 - 4.78 uIU/ml Assessment: Suspect BPPV. Plan: The previous medicines, as noted on the medication list, are being continued. Changes and refills are noted below. Luis was seen today for fatigue and headache. Diagnoses and all orders for this visit: BPPV (benign paroxysmal positional vertigo), right - Amb Consult/Follow Up Physical Therapy - meclizine (ANTIVERT) 12.5 mg tablet; Take 1-2 Tabs by mouth 3 times daily as needed for Dizziness. 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 Letter for work provided. Today's [id number] visit time was 30 minutes with 20 [...] speech recognition software or keyboard data entry specialist techniques. Minor irregularities or keyboarding misprints may be present Other Background Data: Patient Active Problem List Diagnosis Date Noted ??? 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 Proteinuria 04/16/2013 ??? Benign essential hypertension 03/13/2013 ??? Degenerative joint disease involving multiple joints 03/13/2013 ??? Hyperlipidemia 03/13/2013 ??? Sensorineural hearing loss 11/02/2011 Past Medical History: Diagnosis Date ??? Benign essential hypertension 03/13/2013 Past Surgical History: Procedure Laterality Date ??? FACIAL COSMETIC SURGERY Had a lesion removed just above lip on 10/02/10 ??? HERNIA REPAIR ??? TONSILLECTOMY Family History Problem Relation Age of Onset ??? Prostate Cancer Brother 59 ??? Cancer Brother prostate ??? Dementia Mother Alzheimers ??? Heart Disease Father 61 [place] ??? High Blood Pressure Father ??? High Cholesterol Father ??? Heart Disease Paternal Uncle ??? Diabetes Paternal Uncle Social History Substance Use Topics ??? Smoking status: Never Smoker ??? Smokeless tobacco: Never Used Comment: Quit as a teenager ??? Alcohol use 4.8 oz/week 8 Glasses of wine per week documented in this encounter Plan of Treatment Scheduled Referrals Name Type Priority Associated Diagnoses Orde r Schedule AMB CONS/FOLLOW UP PHYSICAL THERAPY Outpatient Referral Routine BPPV (benign paroxysmal positional vertigo), right Ordered: 01/16/2017 documented as of this encounter Goals Goal Patient Goal Type Associated Problems Recent Progress Patient-Stated? Author LDL < 100 Result Component Hyperlipidemia 113( 9 9:29 EDT) Colleen Gracia documented as of this encounter Visit Diagnoses Diagnosis BPPV (benign paroxysmal positional vertigo), right- Primary documented in this encounter Historical Medications * This list may reflect changes made after this encounter. Medication Sig Dispensed Refills Start Date End Date ERGOCALCIFEROL, VITAMIN D2, (VITAMIN D ORAL) Take by mouth daily. 03/10/2018 added in this encounter Care Teams Washing Machine Operator Relationship Specialty Start Date End Date Ya Yee MD [address] [place] [phone] PCP - General 02/23/16 10/02/21 documented as of this encounter
--- OUTSIDE RECORDS SUMMARY | 2024-03-02 02:25 | XMS_ITS | Encounter Summary ---
Author Organization [facility] Address [address] [place] [address] Care Team Providers Care Dental Equipment Installer And Servicer Name Role Phone Ya Yee MD Primary Care Provider [phone] [phone] Reason for Visit * Reason Onset Date Comments Letter for School/Work 01/22/2017 Encounter Details Date Type Department Care Team (Late st Contact Info) Description 01/22/2017 Telephone [facility] Adult Primary Care - [address] [place] [address] Brina Tapia, RN Letter for School/Work Social History Tobacco Use [...] Miscellaneous Notes * Telephone Encounter - Anne Miller - 01/22/2017 1358 EDT Letter faxed * Telephone Encounter - Brina Tapia, PHAM - 01/22/2017 1107 EDT Message to [facility]: Please fax patient's letter for return to work to: [phone]. Thanks. documented in this encounter Plan of Treatment Not on file documented as of this encounter Goals Goal Patient Goal Type Associated Problems Recent Progress Patient-Stated? Author LDL < 100 Result Component Hyperlipidemia 113( 9 9:29 EDT) No Colleen Arora documented as of this encounter Visit Diagnoses Not on filedocumented in this encounter Care Teams Dental Equipment Installer And Servicer Relationship Specialty Start Date End Date Ya Yee MD [address] [place] [phone] PCP - General 02/23/16 10/02/21 documented as of this encounter
--- OUTSIDE RECORDS SUMMARY | 2024-03-02 02:25 | XMS_ITS | Encounter Summary ---
Author Organization [facility] Address [address] [place] [address] Care Team Providers Care Sales Representative Aircraft Name Role Phone Ya Yee MD Primary Care Provider [phone] [phone] Reason for Visit * Reason Comments Diarrhea Onset one week Nausea Abdominal Cramping Encounter Details Date Type Department Care Team (Late st Contact Info) Description 03/03/2018 16:15 EDT Office Visit [facility] Adult Primary Care - [address] [phone] Lauren Grimes PA-C [address] [place] [address] Acute diverticulitis (Primary Dx) Social History Tobacco Use Types [...] Sign Reading Time Taken Comments Blood Pressure 143/77 03/03/2018 1615 EDT Pulse 68 03/03/2018 1615 EDT Temperature 35.7 ??C (96.3 ??F) 03/03/2018 1615 EDT Respiratory Rate 18 03/03/2018 1615 EDT Oxygen Saturation - - Inhaled Oxygen Concentration - - Weight 73 kg (161 lb) 03/03/2018 1615 EDT Height - - Body Mass Index 23.1 05/21/2017 1348 EDT documented in this encounter Functional Status Functional Status Response Date of Assess ment Because of a physical, menta l, or emotional condition, does this person have difficulty doing errands alone such as visiting a doctor's office or shopping? No 12/19/2017 Cognitive Status Response Date of Assessm ent Because of a physical, menta l, or emotional condition, does this person have serious difficulty concentrating, remembering, or making decisions? No 12/19/2017 documented as of this encounter Patient Instructions * Patient Instructions* Lauren Grimes PA-C - 03/03/2018 16:15 EDT Increased fluids, bland diet Follow up if symptoms worsen or do not improve documented in this encounter Ordered Prescriptions Prescription Sig Dispensed Refills Start Date End Da te metroNIDAZOLE (FLAGYL) 500 mg tablet Take 1 Tab by mouth 3 times daily for 5 days. 15 Tab 03/03/2018 03/07/2018 ciprofloxacin HCl (CIPRO) 500 mg tablet Take 1 Tab by mouth 2 times daily. 10 Tab 03/03/2018 03/07/2018 documented in this encounter Progress Notes * Lauren Grimes PA-C - 03/03/2018 1615 EDT Patient ID: Luis Clayton is a 67 y.o. y.o. male Chief Complaint: Diarrhea (Onset one week); Nausea; and Abdominal Cramping History of present Illness (HPI): Diarrhea and abdominal pain Subjective: Patient has had at least a week of constant LUQ pain rated 3/10, with change in bowel habits. Usually he has one to two bowel movements in the morning but since symptoms started he has had 4-5/day, described as loose with no blood or mucus. He describes the pain as sharp and aching. Last colonoscopy in 2013 did show diverticulitis. He has had mild nausea without vomiting. There are noaggravating or alleviating factors. He denies fevers, fatigue. Patient Active Problem List Diagnosis ??? Sensorineural hearing loss ??? Benign neoplasm of eyelid including canthus ??? Proteinuria ??? Benign essential hypertension ??? Degenerative joint disease involving multiple joints ??? Hyperlipidemia Current Outpatient Prescriptions: acetaminophen (TYLENOL) 325 mg tablet Take 650 mg by mouth every 4 hours as needed for Pain. ciprofloxacin HCl (CIPRO) 500 mg tablet Take 1 Tab by mouth 2 times daily. ERGOCALCIFEROL, VITAMIN D2, (VITAMIN D ORAL) Take by mouth daily. ibuprofen (MOTRIN) 200 mg tablet Take 200 mg by mouth every 6 hours as needed for Pain. metroNIDAZOLE (FLAGYL) 500 mg tablet Take 1 Tab by mouth 3 times daily for 5 days. No Known Allergies Review of Systems: Objective: Physical Examination: BP (!) 143/77 Pulse 68 Temp 35.7 ??C (96.3 ??F) (Tympanic) Resp 18 Wt 73 kg (161 lb) BMI 23.1 kg/m2 General: WN/WD in NAD Resp: Non-labored breathing Abdomen: Non-distended, focal LUQ tenderness laterally, NABS, no HSM PROBLEM: Assessment & Plan: Suspect a mild diverticulitis of splenic flexure based on change in bowel habits and localized pain. Will treat empirically with antibiotics, will reassess in 2- 3 days and order blood work and CT imaging if no improvement. Advised bland diet and increased fluids. Luis was seen today for diarrhea, nausea and abdominal cramping. Diagnoses and all orders for this visit: Acute diverticulitis Other orders - ciprofloxacin HCl (CIPRO) 500 mg tablet; Take 1 Tab by mouth 2 times daily. - metroNIDAZOLE (FLAGYL) 500 mg tablet; Take 1 Tab by mouth 3 times daily for 5 days. Pt Ed: - Increased fluids, bland diet Follow up if symptoms worsen or do not improve documented in this encounter Plan of Treatment Not on file documented as of this encounter Goals Goal Patient Goal Type Associated Problems Recent Progress Patient-Stated? Author LDL < 100 Result Component Hyperlipidemia 113( 9 9:29 EDT) Colleen Gracia documented as of this encounter Visit Diagnoses Diagnosis Acute diverticulitis- Primary Diverticulitis of colon (without mention of hemorrhage) documented in this encounter Discontinued Medications Medication Sig Discontinue Reason Start Date End Da te amoxicillin-clavulanat e (AUGMENTIN) 875-125 mg per tablet Take 1 Tab by mouth 2 times daily. Patient Stopped Taking 10/07/2017 03/03/2018 meclizine (ANTIVERT) 12.5 mg tablet Take 1-2 Tabs by mouth 3 times daily as needed for Dizziness. Patient Stopped Taking 01/16/2017 03/03/2018 fluticasone (FLONASE) 50 mcg/actuation nasal spray Instill 1 [place] into both nostrils 2 times daily. Patient Stopped Taking 10/07/2017 03/03/2018 documented as of this encounter Care Teams Sales Representative Aircraft Relationship Specialty Start Date End Date Ya Yee MD [address] [place] [phone] PCP - General 02/23/16 10/02/21 documented as of this encounter
--- OUTSIDE RECORDS SUMMARY | 2024-03-02 02:25 | XMS_ITS | Encounter Summary ---
Author Organization [facility] Address [address] [place] [address] Care Team Providers Care Sheet Rock Applicator Name Role Phone Ya Yee MD Primary Care Provider [phone] [phone] Reason for Visit * Reason Onset Date Comments Labs Only 04/10/2018 Encounter Details Date Type Department Care Team (Late st Contact Info) Description 04/10/2018 Orders Only [facility] Adult Primary Care - [address] [phone] Ya Yee MD [address] [place] [phone] Hyperlipidemia, unspecified hyperlipidemia type (Primary Dx); Benign essential hypertension; Need for hepatitis C screening test Social History Tobacco Use Types Packs/Day Years [...] visiting a doctor's office or shopping? No 03/10/2018 Cognitive Status Response Date of Assessm ent Because of a physical, menta l, or emotional condition, does this person have serious difficulty concentrating, remembering, or making decisions? No 03/10/2018 documented as of this encounter Progress Notes * Deirdre Saravia - 04/10/2018 0853 EDT Pt scheduled for [facility] on 04/23. Labs pended, please sign if appropriate. documented in this encounter Plan of Treatment Not on file documented as of this encounter Goals Goal Patient Goal Type Associated Problems Recent Progress Patient-Stated? Author LDL < 100 Result Component Hyperlipidemia 113( 9 9:29 EDT) No Colleen Arora documented as of this encounter Results * COMPREHENSIVE METABOLIC PANEL (CMP) (04/19/2018 9:20 EDT) Potassium 4.6 3.5 - 5.0 mEq/L 04/19/2018 11:03 [facility] Sodium 141 136 - 145 mEq/L 04/19/2018 11:03 [facility] Chloride 102 96 - 110 mEq/L 04/19/2018 11:03 [facility] CO2 29 22 - 32 mEq/L 04/19/2018 11:03 [facility] Total Alkaline Phosphatase 65 38 - 126 U/L 04/19/2018 11:03 [facility] Bilirubin, Total 1.2 <1.4 mg/dl 04/19/20 18 11:03 [facility] AST 28 15 - 46 U/L 04/19/2018 11:03 [facility] ALT 45 21 - 72 U/L 04/19/2018 11:03 [facility] Albumin 4.4 3.4 - 4.9 g/dl 04/19/2018 11:03 [facility] Total Protein 6.8 6.3 - 8.2 g/dl 04/19/2018 11:03 [facility] Creatinine 0.79 0.66 - 1.25 mg/dl 04/19/2018 11:03 [facility] GFR, Calculated 92 >60 ml/min/1.7 3m2 04/19/2018 11:03 [facility] Comment: eGFR calculated using CKD-EPI equation for non Americans. Multiply eGFR by 1.16 for Americans. BUN 16 10 - 26 mg/dl 04/19/2018 11:03 [facility] Calcium 9.2 8.5 - 10.5 mg/dl 04/19/2018 11:03 [facility] Calculated Calcium 8.9 8.5 - 10.5 mg/dl 04/19/2018 11:03 [facility] Glucose, Serum 91 70 - 100 mg/dl 04/19/2018 11:03 [facility] Fasting? YES 04/19/2018 9:12 [facility] Blood specimen (specimen) BLOOD SPECIMEN / Unknown 04/19/2018 9:20 EDT 04/19/2018 10:34 EDT Ya Yee MD CHEMISTRY & BLOOD GAS ORDERABLES Performing Organization Address City/State/[facility] Co de Phone Number [facility] [address] [place] [phone] * LIPID PROFILE (INCLUDES CHOLESTEROL, TRIGLYCERIDES, HDL, LDL) (04/19/2018 9:20 EDT) Cholesterol 231 mg/dl 04/19/2018 11:03 [facility] Comment: Desirable:<200 Borderline High:200-239 High:>mm=438 Triglycerides 130 mg/dl 04/19/2018 11:03 [facility] Comment: Normal:<150 Borderline High:150-199 High:200-499 Very High:>wq=851 HDL 64 mg/dl 04/19/2018 11:03 [facility] Comment: Low:<40 Normal:40-60 Desirable: >60 LDL, Calculated 141 mg/dl 8 11:03 [facility] Comment: Optimal:<100 Near Optimal:100-129 Borderline High:130-159 High:160-189 Very High:>ps=691 Chol/HDL Ratio 3.6 04/19/2018 11:03 [facility] Fasting? YES 04/19/2018 9:12 [facility] Non HDL Cholesterol 167 mg/dl 04/19/2018 11:[address] [facility] Comment: Desirable:<130 Borderline:130-159 High: 160-189 Very High: >nr=618 Blood specimen (specimen) BLOOD SPECIMEN / Unknown 04/19/2018 9:20 EDT 04/19/2018 10:34 EDT Ya Yee MD CHEMISTRY & BLOOD GAS ORDERABLES [facility] [address] [place] [address] documented in this encounter Visit Diagnoses Diagnosis Hyperlipidemia, unspecified hyperlipidemia type- Primary Benign essential hypertension Essential hypertension, benign Need for hepatitis C screening test Special screening examination for other specified viral diseases documented in this encounter Orders Lab Orders Without Results Count Last Ordered D ate First Ordered Date HEPATIC FUNCTION PANEL (ALB, ALK PHOS,ALT,AST,DBIL,TOT SERGEY,TOT PROT) 1 04/10/2018 documented in this encounter Care Teams Sheet Rock Applicator Relationship Specialty Start Date End Date Ya Yee MD [address] [place] [phone] PCP - General 02/23/16 10/02/21 documented as of this encounter
--- OUTSIDE RECORDS SUMMARY | 2024-03-02 02:25 | XMS_ITS | Encounter Summary ---
Author Organization [facility] Address [address] [place] [address] Care Team Providers Care Lap Regulator Name Role Phone Ya Yee MD Primary Care Provider [phone] [phone] Encounter Details Date Type Department Care Team (Late st Contact Info) Description 09/03/2016 9:09 EST - 09/03/2016 23:59 EST Hospital Encounter [facility] [address] [place] [id number] Ya Yee MD [address] [place] [phone] Discharge Disposition: Auto Discharge Social History Tobacco Use Types Packs/Day Years [...] No 08/27/2016 documented as of this encounter Discharge Diagnoses Diagnosis R53.83 Other fatigue-R53.83[ICD-10-CM] R07.81 Pleurodynia-R07.81[ICD-10-CM] documented in this encounter Discharge Disposition Disposition Code Departure Means Destination Auto Discharge Home documented in this encounter Plan of Treatment Not on file documented as of this encounter Goals Goal Patient Goal Type Associated Problems Recent Progress Patient-Stated? Author LDL < 100 Result Component Hyperlipidemia 113( 9 9:29 EDT) Colleen Gracia documented as of this encounter Visit Diagnoses Not on filedocumented in this encounter Care Teams Lap Regulator Relationship Specialty Start Date End Date Ya Yee MD [address] [place] [phone] PCP - General 02/23/16 10/02/21 documented as of this encounter
--- OUTSIDE RECORDS SUMMARY | 2024-03-02 02:25 | XMS_ITS | Encounter Summary ---
Author Organization [facility] Address [address] [place] [address] Care Team Providers Care Flap Maker Name Role Phone Ya Yee MD Primary Care Provider [phone] [phone] Encounter Details Date Type Department Care Team (Late st Contact Info) Description 09/03/2016 Phlebotomy Only [facility] [address] [place] [address] Stair Builder, Outpatient Fatigue, unspecified type (Primary Dx) Social History Tobacco Use Types [...] No 08/27/2016 documented as of this encounter Plan of Treatment Not on file documented as of this encounter Goals Goal Patient Goal Type Associated Problems Recent Progress Patient-Stated? Author LDL < 100 Result Component Hyperlipidemia 113( 9 9:29 EDT) No Colleen Arora documented as of this encounter Procedures Procedure Name Priority Date/Time Associated Diagnosis Comments THYROID CASCADE Routine 09/03/2016 9:20 EST Fatigue, unspecified type COMPLETE BLOOD COUNT Routine 09/03/2016 9:20 EST Fatigue, unspecified type documented in this encounter Results * THYROID CASCADE (09/03/2016 9:20 EST) TSH 1.43 0.55 - 4.78 uIU/ml 09/03/2016 11:45 [facility] Comment: TSH cascade is not recommended for patients in which pituitary or hypothalamic disorders are suspected. Blood specimen (specimen) BLOOD SPECIMEN / Unknown 09/03/2016 9:20 EST 09/03/2016 10:09 EST Ya Yee MD CHEMISTRY & BLOOD GAS ORDERABLES Performing Organization Address City/State/[facility] Co de Phone Number [facility] [address] [place] [address] * HEMAGRAM (09/03/2016 9:20 EST) WBC 4.90 4.0 - 10.4 K/cmm 09/03/2016 10:38 [facility] RBC 4.90 4.36 - 5.78 M/cmm 09/03/2016 10:38 [facility] Hemoglobin 15.9 13.8 - 17.3 gm/dl 09/03/2016 10:38 [facility] HCT 44.8 39.5 - 50.2 % 09/03/2016 10:38 [facility] MCV 91 81 - 95 fl 09/03/2016 10:38 [facility] MCH 32.4 27.6 - 33.0 pg 09/03/2016 10:38 [facility] MCHC 35.5 32.8 - 36.4 gm/dl 09/03/2016 10:38 [facility] RDW-CV 12.4 11.8 - 14.1 % 09/03/2016 10:38 [facility] RDW-SD 41.1 36.5 - 45.9 fl 09/03/2016 10:38 EST [facility] PLT 279 141 - 377 K/cmm 09/03/2016 10:38 EST [facility] MPV 10.9 9.5 - 12.7 fl 09/03/2016 10:38 EST [facility] Blood specimen (specimen) BLOOD SPECIMEN / Unknown 09/03/2016 9:20 EST 09/03/2016 10:09 EST Ya Yee MD HEMATOLOGY & PF4 ORDERABLES [facility] [address] [place] [address] documented in this encounter Visit Diagnoses Diagnosis Fatigue, unspecified type- Primary documented in this encounter Care Teams Flap Maker Relationship Specialty Start Date End Date Ya Yee MD [address] [place] [phone] PCP - General 02/23/16 10/02/21 documented as of this encounter
--- OUTSIDE RECORDS SUMMARY | 2024-03-02 02:25 | XMS_ITS | Encounter Summary ---
Author Organization [facility] Address [address] [place] [address] Care Team Providers Care Real Estate Valuer Name Role Phone Ya Yee MD Primary Care Provider [phone] [phone] Reason for Visit * Reason Comments Facial Pain nasal congestion x 3 weeks, over last 48 hrs, now with chest congestion and productive cough Encounter Details Date Type Department Care Team (Latest Contact Info) Description 08/11/2018 10:22 EST - 08/11/2018 10:59 EST Hospital Encounter [facility] - [address] [address] Unknown, Provider, Patient left without being seen (Primary Dx) Discharge Disposition: Home or Self [...] Sign Reading Time Taken Comments Blood Pressure 166/77 08/11/2018 1043 EST Pulse 70 08/11/2018 1043 EST Temperature 36.7 ??C (98.1 ??F) 08/11/2018 1043 EST Respiratory Rate 16 08/11/2018 1043 EST Oxygen Saturation 99% 08/11/2018 1043 EST Inhaled Oxygen Concentration - - Weight - [...] No 04/23/2018 documented as of this encounter Medications at Time of Discharge Medication Sig Dispensed Refills Start Date End Date Cholecalciferol, Vitamin D3, 400 unit tablet Take 1,000 Units by mouth daily. acetaminophen (TYLENOL) 325 mg tablet Take 650 mg by mouth every 4 hours as needed for Pain. 11/03/2018 ibuprofen (MOTRIN) 200 mg tablet Take 200 mg by mouth every 6 hours as needed for Pain. 11/03/2018 documented as of this encounter Discharge Disposition Disposition Code Departure Means Destination Home or Self Care documented in this encounter ED Notes * Cassie Banks RN - 08/11/2018 1045 EST Informed of potential 1-2 hr wait. documented in this encounter Plan of Treatment Not on file documented as of this encounter Goals Goal Patient Goal Type Associated Problems Recent Progress Patient-Stated? Author LDL < 100 Result Component Hyperlipidemia 113( 9 9:29 EDT) No Colleen Arora documented as of this encounter Visit Diagnoses Diagnosis Patient left without being seen- Primary Surgical or other procedure not carried out because of patient's decision documented in this encounter Care Teams Real Estate Valuer Relationship Specialty Start Date End Date Ya Yee MD [address] [place] [phone] PCP - General 02/23/16 10/02/21 documented as of this encounter
--- OUTSIDE RECORDS SUMMARY | 2024-03-02 02:25 | XMS_ITS | Encounter Summary ---
Author Organization [facility] Address [address] [place] [address] Care Team Providers Care Jumpbasting Facing Baster Name Role Phone Ya Yee MD Primary Care Provider [phone] [phone] Encounter Details Date Type Department Care Team (Latest Contact Info) Description 03/11/2018 11:33 EDT - 03/11/2018 23:59 EDT Hospital Encounter [address] [address] Gilmer Angel MD [address] [place] [phone] Discharge Disposition: Home or Self Care Social [...] No 03/10/2018 documented as of this encounter Discharge Diagnoses Diagnosis R10.9 Unspecified abdominal pain-R10.9[ICD-10-CM] documented in this encounter Medications at Time [...] or Self Jail documented in this encounter Plan of Treatment Not on file documented as of this encounter Goals Goal Patient Goal Type Associated Problems Recent Progress Patient-Stated? Author LDL < 100 Result Component Hyperlipidemia 113( 9 9:29 EDT) Colleen Gracia documented as of this encounter Visit Diagnoses Not on filedocumented in this encounter Care Teams Jumpbasting Facing Baster Relationship Specialty Start Date End Date Ya Yee MD [address] [place] [phone] PCP - General 02/23/16 10/02/21 documented as of this encounter
--- OUTSIDE RECORDS SUMMARY | 2024-03-02 02:25 | XMS_ITS | Encounter Summary ---
Author Organization [facility] Address [address] [place] [address] Care Team Providers Care Finance And Administration Manager Name Role Phone Ya Yee MD Primary Care Provider +1 [phone] Encounter Details Date Type Department Care Team (Late st Contact Info) Description 03/11/2018 Phlebotomy Only [facility] [address] [place] [address] Drill Punch Operator, Outpatient Acute left flank pain (Primary Dx) Social History Tobacco Use Types [...] No 03/10/2018 documented as of this encounter Plan of Treatment Not on file documented as of this encounter Goals Goal Patient Goal Type Associated Problems Recent Progress Patient-Stated? Author LDL < 100 Result Component Hyperlipidemia 113( 9 9:29 EDT) No Colleen Arora documented as of this encounter Procedures Procedure Name Priority Date/Time Associated Diagnosis Comments URINE CULTURE IF POSITIVE Routine 03/11/2018 11:49 EDT Acute left flank pain URINE CHEMICAL (DIP) & SEDIMENT (MICRO) WITHOUT REFLEX TO CULTURE Routine 03/11/2018 11:49 EDT Acute left flank pain COMPLETE BLOOD COUNT AND DIFFERENTIAL Routine 03/11/2018 11:49 EDT Acute left flank pain C REACTIVE PROTEIN Routine 03/11/2018 11 :49 EDT Acute left flank pain documented in this encounter Results * URINE CULTURE IF UA POSITIVE - NON POCT URINALYSIS ONLY (03/11/2018 11:49 EDT) Culture if Indicated Culture not indicated by urinalysis results. 03/11/2018 12:48 EDT [facility] Urine specimen (specimen) TOPOGRAPHY UNKNOWN / Unknown 03/11/2018 11:49 EDT 03/11/2018 12:38 EDT Gilmer Angel MD MICROBIOLOG Y - GENERAL ORDERABLES [facility] [address] [place] [address] * UA, CHEMICAL AND SEDIMENT ANALYSIS (DIPSTICK AND MICROSCOPIC) (03/11/2018 11:49 EDT) Color, UA Colorless 03/11/2018 12:48 EDT [facility] Clarity, UA Clear 03/11/2018 12:48 T [facility] Glucose, UA Neg Neg 03/11/2018 12:48 T [facility] Bilirubin, UA Neg Neg 03/11/2018 12:48 T [facility] Ketones, UA Neg Neg 03/11/2018 12:48 T [facility] Refractometer SG,Urine 1.007 1.001 - 1.035 03/11/2018 12:48 T [facility] Blood, UA Neg Neg 03/11/2018 12:48 T [facility] pH, UA 6.5 4.6 - 8.0 03/11/2018 12:48 EDT [facility] Protein, UA Neg Neg 03/11/2018 12:48 T [facility] Urobilinogen, UA Normal Normal E.U./dl 03/11/2018 12:48 [facility] Nitrite, UA Neg Neg 03/11/2018 12:48 T [facility] Leuk Esterase Neg Neg 03/11/2018 12:48 T [facility] UA Method Used 03/11/2018 11:39 [facility] Comment: Testing performed using Converged Access [id number]. Urine RBC Count Automated 0 to 2 0 to 2 /HPF 03/11/2018 12:48 T [facility] Urine WBC Count Automated 0 to 3 0 to 3 /HPF 03/11/2018 12:48 [facility] Urine Squamous Epithelial Cell Count, Automated None seen None seen /LPF 03/11/2018 12:48 [facility] Urine Hyaline Casts, Automated < or = 10 < or = 10 /LPF 03/11/2018 12:48 [facility] Urine Bacteria Count, Automated None seen None seen 03/11/2018 12:48 T [facility] UA Comment Sediment results 03/11/2018 12:48 [facility] Comment: are unreliable on urines unrefrig >2hrs or refrig >8hrs. Urine specimen (specimen) URINE / Unknown 03/11/2018 11:49 EDT 03/11/2018 12:38 EDT Gilmer Angel MD URINALYSIS ORDERABLES [facility] [address] [place] [address] * COMPLETE BLOOD COUNT AND DIFFERENTIAL (03/11/2018 11:49 EDT) WBC 5.40 4.0 - 10.4 K/cmm 03/11/2018 12:51 EDT [facility] RBC 4.80 4.36 - 5.78 M/cmm 03/11/2018 12:51 [facility] Hemoglobin 15.6 13.8 - 17.3 gm/dl 03/11/2018 12:51 [facility] HCT 44.2 39.5 - 50.2 % 03/11/2018 12:51 [facility] MCV 92 81 - 95 fl 03/11/2018 12:51 [facility] MCH 32.5 27.6 - 33.0 pg 03/11/2018 12:51 [facility] MCHC 35.3 32.8 - 36.4 gm/dl 03/11/2018 12:51 [facility] RDW-CV 12.6 <14.2 % 03/11/2018 12:51 [facility] RDW-SD 42.3 <46.0 fl 03/11/2018 12:51 [facility] PLT 248 141 - 377 K/cmm 03/11/2018 12:51 [facility] MPV 11.0 9.5 - 12.7 fl 03/11/2018 12:51 [facility] % Neutrophils 62.4 % 03/11/2018 12:51 [facility] % Lymphocytes 23.0 % 03/11/2018 12:51 [facility] % Monocytes 11.3 % 03/11/2018 12:51 [facility] % Eosinophils 2.4 % 03/11/2018 12:51 [facility] % Basophils 0.7 % 03/11/2018 12:51 [facility] % Immature Grans 0.2 % 03/11/2018 12:51 [facility] ABS Neutrophils 3.37 2.20 - 8.85 K/cmm 03/11/2018 12:51 [facility] ABS Lymphs 1.24 1.09 - 3.30 K/cmm 03/11/2018 12:51 [facility] ABS Monocytes 0.61 0.1 - 0.8 K/cmm 03/11/2018 12:51 [facility] ABS Eosinophils 0.13 0.03 - 0.61 K/cmm 03/11/2018 12:51 EDT [facility] ABS Basophils 0.04 0.01 - 0.11 K/cm 03/11/2018 12:51 EDT [facility] ABS Immature Grans 0.01 0 - 0.06 K/cm 03/11/2018 12:51 EDT [facility] Type of Diff: Automated 03/11/2018 12:51 EDT [facility] Blood specimen (specimen) BLOOD SPECIMEN / Unknown 03/11/2018 11:49 EDT 03/11/2018 12:42 EDT Gilmer Angel MD PACKAGES & DNA PROBE ORDERABLES Performing Organization Address City/[facility]/ZIP Co de Phone Number [facility] [address] [place] [address] * C REACTIVE PROTEIN (03/11/2018 11:49 EDT) C Reactive Protein <7.0 <10.0 mg/L 03/11/2018 13:25 EDT [facility] Blood specimen (specimen) BLOOD SPECIMEN / Unknown 03/11/2018 11:49 EDT 03/11/2018 12:42 EDT Gilmer Angel MD CHEMISTRY & BLOOD GAS ORDERABLES Performing Organization Address City/[facility] Co de Phone Number [facility] [address] [place] [address] documented in this encounter Visit Diagnoses Diagnosis Acute left flank pain- Primary Abdominal pain, unspecified site documented in this encounter Care Teams Finance And Administration Manager Relationship Specialty Start Date End Date Ya Yee MD [address] [place] [phone] PCP - General 02/23/16 10/02/21 documented as of this encounter
--- OUTSIDE RECORDS SUMMARY | 2024-03-02 02:25 | XMS_ITS | Encounter Summary ---
Author Organization [facility] Address [address] [place] [address] Care Team Providers Care Pulp Maker Name Role Phone Ya Yee MD Primary Care Provider +1 [phone] Encounter Details Date Type Department Care Team (Late st Contact Info) Description 10/21/[address] [facility] [address] [place] [address] Miter Sawyer, Outpatient Hyperlipidemia, unspecified hyperlipidemia type; Prostate cancer screening; Encounter for hepatitis C screening test for low risk patient Social History Tobacco Use Types Packs/Day Years [...] Procedure Name Priority Date/Time Associated Diagnosis Comments HEPATITIS C AB W REFLEX TO HCV RNA BY PCR Routine 10/21/2018 9:01 EST Encounter for hepatitis C screening test for low risk patient PSA SCREEN Routine 10/21/2018 9:01 EST Prostate cancer screening LIPID PROFILE (INCLUDES CHOLESTEROL, TRIGLYCERIDES, HDL, LDL) Routine 10/21/2018 9:01 EST Hyperlipidemia, unspecified hyperlipidemia type documented in this encounter Results * HEPATITIS C AB W REFLEX TO HCV RNA BY PCR (10/21/2018 9:01 EST) Hep C Ab w Rfx PCR HCSCR2 Negative Negative 10/22/2018 9:56 EST [facility] Blood specimen (specimen) BLOOD SPECIMEN / Unknown 10/21/2018 9:01 EST 10/21/2018 10:24 EST Ya Yee MD CHEMISTRY & BLOOD GAS ORDERABLES Performing Organization Address City/[facility]/ZIP Co de Phone Number [facility] [address] [place] [address] * PSA SCREEN (10/21/2018 9:01 EST) PSA 0.4 0 - 4.5 ng/ml 10/21/2018 12:46 EST [facility] Comment: Serum PSA concentration should not be interpreted as absolute evidence for the presence or absence of malignant disease. Assayed utilizing TIKI.VN (Swipp) chemiluminescent technology. ??Values obtained by using different assay methods cannot be used interchangeably. Blood specimen (specimen) BLOOD SPECIMEN / Unknown 10/21/2018 9:01 EST 10/21/2018 10:24 EST Ya Yee MD CHEMISTRY & BLOOD GAS ORDERABLES Performing Organization Address City/[facility]/ZIP Co de Phone Number [facility] [address] [place] [address] * LIPID PROFILE (INCLUDES CHOLESTEROL, TRIGLYCERIDES, HDL, LDL) (10/21/2018 9:01 EST) Cholesterol 251 mg/dl 10/21/2018 11:04 [facility] Comment: Desirable:<200 Borderline High:200-239 High:>hg=852 Triglycerides 111 mg/dl 10/21/2018 11:04 [facility] Comment: Normal:<150 Borderline High:150-199 High:200-499 Very High:>sl=487 HDL 63 mg/dl 10/21/2018 11:04 [facility] Comment: Low:<40 Normal:40-60 Desirable: >60 LDL, Calculated 166 mg/dl 9 11:04 [facility] Comment: Optimal:<100 Near Optimal:100-129 Borderline High:130-159 High:160-189 Very High:>et=025 Chol/HDL Ratio 4.0 10/21/2018 11:04 [facility] Fasting? YES 10/21/2018 8:43 [facility] Non HDL Cholesterol 188 mg/dl 10/21/2018 11:04 [facility] Comment: Desirable:<130 Borderline:130-159 High: 160-189 Very High: >sa=153 Blood specimen (specimen) BLOOD SPECIMEN / Unknown 10/21/2018 9:01 EST 10/21/2018 10:24 EST Ya Yee MD CHEMISTRY & BLOOD GAS ORDERABLES [facility] [address] [place] [address] documented in this encounter Visit Diagnoses Diagnosis Hyperlipidemia, unspecified hyperlipidemia type Prostate cancer screening Special screening for malignant neoplasm of prostate Encounter for hepatitis C screening test for low risk patient documented in this encounter Care Teams Pulp Maker Relationship Specialty Start Date End Date Ya Yee MD [address] [place] [phone] PCP - General 02/23/16 10/02/21 documented as of this encounter
--- OUTSIDE RECORDS SUMMARY | 2024-03-02 02:25 | XMS_ITS | Encounter Summary ---
Author Organization [facility] Address [address] [place] [address] Care Team Providers Care Stewarding Supervisor Name Role Phone Ya Yee MD Primary Care Provider +1 [phone] Reason for Visit * Reason Comments Follow-up Cerumen Impaction Encounter Details Date Type Department Care Team (Late st Contact Info) Description 12/19/2017 9:20 EDT Office Visit [facility] ENT- [address] [id number] Chetna Noble MD [address] [place] [address], [address] [place] [address] Impacted cerumen of both ears [...] No 12/19/2017 documented as of this encounter Progress Notes * Chetna Noble MD - 12/19/2017 1030 EDT No problems since his last visit. ENT Cerumenectomy Indications for Procedure: Obstructive copious cerumen that cannot be removed safely without magnification and multiple instruments. Careful examination of the ear and removal of cerumen was done on both ears using the operating microscope and microinstruments/suction. The patient tolerated this procedure well. Complications: None Findings: Ears - canals and TMs wnl once cerumen [...] cerumen documented in this encounter Care Teams Stewarding Supervisor Relationship Specialty Start Date End Date Ya Yee MD [address] [place] [phone] PCP - General 02/23/16 10/02/21 documented as of this encounter
--- OUTSIDE RECORDS SUMMARY | 2024-03-02 02:25 | XMS_ITS | Encounter Summary ---
Author Organization [facility] Address [address] [place] [address] Care Team Providers Care Program Coordinator Name Role Phone Ya Yee MD Primary Care Provider +1 -[phone] Reason for Visit * Reason Comments Cough productive for yello w mucus for the past two weeks, now has dull ache mid chest Nasal Congestion Encounter Details Date Type Department Care Team (Late st Contact Info) Description 05/21/2017 13:45 EDT Office Visit [facility] Adult Primary Care - [address] [address] Milena Mccabe MD [address] [place] [phone] Cough (Primary Dx) Social History Tobacco [...] Sign Reading Time Taken Comments Blood Pressure 142/80 05/21/2017 1348 EDT Pulse 84 05/21/2017 1348 EDT Temperature 35.8 ??C (96.5 ??F) 05/21/2017 1348 EDT Respiratory Rate 20 05/21/2017 1348 EDT Oxygen Saturation - - Inhaled Oxygen Concentration - - Weight 75.3 kg (166 lb) 05/21/2017 1348 EDT Height 177.8 cm (5' 10) 05/21/2017 1348 EDT Body Mass Index 23.82 05/21/2017 1348 EDT documented in this encounter Functional Status Functional Status Response Date of Assess ment Because of a physical, menta l, or emotional condition, does this person have difficulty doing errands alone such as visiting a doctor's office or shopping? No 03/26/2017 Cognitive Status Response Date of Assessm ent Because of a physical, menta l, or emotional condition, does this person have serious difficulty concentrating, remembering, or making decisions? No 03/26/2017 documented as of this encounter Progress Notes * Milena Mccabe MD - 05/21/2017 1345 EDT Subjective: Luis Clayton is an 66 y.o. male who presents for evaluation of productive cough with sputum described as yellow and no fever. Symptoms began 9 days ago and are unchanged since that time. Past history is significant for pneumonia (twice). He is a non smoker. This illness does not feel like his previous pneumonias. Cough does not keep him awake at night. No associated SOB. He does note some substernal burning after coughing. No ear pain, sore throat (resolved), nasal congestion. PO intake is normal. Current Outpatient Prescriptions Medication Sig Dispense Refill ??? ERGOCALCIFEROL, VITAMIN D2, (VITAMIN D ORAL) Take by mouth daily. ??? meclizine (ANTIVERT) 12.5 mg tablet Take 1-2 Tabs by mouth 3 times daily as needed for Dizziness. 30 Tab 1 No current facility-administered medications for this visit. Review of Systems Pertinent items are noted in Subjective/HPI Objective: BP (!) 142/80 Pulse 84 Temp 35.8 ??C (96.5 ??F) (Tympanic) Resp 20 Ht 177.8 cm (70) Wt 75.3 kg (166 lb) BMI 23.82 kg/m2 General appearance: alert, cooperative, no distress Head: sinuses nontender to percussion Ears: normal TM's and external ear canals AU Nose: no discharge Throat/Mouth: normal findings: soft palate, uvula, and tonsils normal Neck: supple, symmetrical, trachea midline and no adenopathy Lungs: clear to auscultation bilaterally Heart: regular rate and rhythm, S1, S2 normal, no murmur, click, rub or gallop Mental Status: awake and alert; oriented to person, place, and time Assessment: Acute Bronchitis with cough. No signs of a bacterial process presently. Explained to him that coughcan be productive for weeks after a bronchial infection. Plan: Worsening signs and symptoms discussed. Rest, fluids, acetaminophen, and humidification. Recheck as needed for persistence, worsening, appearance of new symptoms. documented in this encounter Plan of Treatment Not on file documented as of this encounter Goals Goal Patient Goal Type Associated Problems Recent Progress Patient-Stated? Author LDL < 100 Result Component Hyperlipidemia 113( 9 9:29 EDT) Colleen Gracia documented as of this encounter Visit Diagnoses Diagnosis Cough- Primary documented in this encounter Care Teams Program Coordinator Relationship Specialty Start Date End Date Ya Yee MD [address] [place] [phone] PCP - General 02/23/16 10/02/21 documented as of this encounter
--- OUTSIDE RECORDS SUMMARY | 2024-03-02 02:25 | XMS_ITS | Encounter Summary ---
Author Organization [facility] Address [address] [place] [address] Care Team Providers Care Dba Developer Name Role Phone Ya Yee MD Primary Care Provider [phone] [phone] Reason for Visit * Reason Comments Follow-up torso pain Encounter Details Date Type Department Care Team (Late st Contact Info) Description 08/07/2017 9:00 EST Office Visit [facility] Adult Primary Care - [address] [id number] Ya Yee MD [address] [place] [phone] Rib pain (Primary Dx); Fatigue, unspecified type Social History Tobacco Use Types Packs/Day [...] Sign Reading Time Taken Comments Blood Pressure 128/80 08/07/2017 0911 EST Pulse 72 08/07/2017 0911 EST Temperature 35.9 ??C (96.7 ??F) 08/07/2017 0911 EST Respiratory Rate - - Oxygen Saturation - - Inhaled Oxygen Concentration - - Weight 79.4 kg (175 lb) 08/07/2017 0911 EST with boots on Height - - Body Mass Index 25.11 05/21/2017 1348 EDT documented in this encounter Functional Status Functional Status Response Date of Assess ment Because of a physical, menta l, or emotional condition, does this person have difficulty doing errands alone such as visiting a doctor's office or shopping? No 08/07/2017 Cognitive Status Response Date of Assessm ent Because of a physical, menta l, or emotional condition, does this person have serious difficulty concentrating, remembering, or making decisions? No 08/07/2017 documented as of this encounter Progress Notes * Ya Yee MD - 08/07/2017 0900 EST Patient ID: Luis Clayton is a 66 y.o. y.o. male Chief Complaint: Follow-up (torso pain) History of present Illness (HPI): Mr. Ramirez presents to discuss some odd pains. He describes point tenderness along his rib cage.Going on for a few months. Intermittent. On R and L side. No associated SOB, chest pressure, diaphoresis. No clear exacerbating symptoms. When the pain is present it is sore to touch. Also notes painalong L side- again sensitive to touch. It is intermittent though he is always a litle aware of sens itivity to the touch. He also has occasional tingling fatigued feeling- this occurs 1-2 times a week. It doesn't last long and is not accompanies by f/c, CP, SOB, GI symptoms, h/a, dizziness or light -headedness. He cannot identify any associated symptoms. Of note, patient reports an ETT And nuclear stress test 4-5 years ago at [facility]. HE tells me that thenuclear test was negative and no follow-up was pursued. We do not have these notes in the system. Current Outpatient Prescriptions: azithromycin (ZITHROMAX) 250 mg tablet Take 2 tablets (500 mg) on Day 1, followed by 1 tablet (250 mg) once daily on Days 2 through 5. (Patient not taking: Reported on 08/07/2017) ERGOCALCIFEROL, VITAMIN D2, (VITAMIN D ORAL) Take by mouth daily. meclizine (ANTIVERT) 12.5 mg tablet Take 1-2 Tabs by mouth 3 times daily as needed for Dizziness. (Patient not taking: Reported on 08/07/2017) No Known Allergies Review of Systems: System Neg Pos Comments Constitutional x Intermittent tingling/fatigue Eyes x ENT x Cardiovascular x Pulmonary x Gastrointestinal x Genitourinary x Musculoskeletal x Rib pain Skin/breast x Neurological x Psychiatric x Endocrine x Hematologic Lymphatic x Allergic Immunologic x Objective: Physical Examination: BP 128/80 Pulse 72 Temp 35.9 ??C (96.7 ??F) (Tympanic) Wt 79.4 kg (175 lb) Comment: with boots on BMI 25.11 kg/m2 General: Alert, cooperative, no distress. Head: Normocephalic, without obvious abnormality. Lungs: Clear to auscultation bilaterally. Chest wall: Tenderness to palpation in 3 spots along anterior and lateral (L) ribs. Heart: Regular rate and rhythm, S1, S2 normal, no systolic murmur, no click, rub or gallop. Neurologic: CNII-XII intact. Normal strength, sensation and reflexes throughout. LABS: Results for orders placed or performed [...] TSH 1.43 0.55 - 4.78 uIU/ml Assessment: Chest/rib pain: suspect costochondritis. I think cardiac etiology is very unlikely and stress testing is not likely to be of benefit. Patient has reportedly had negative cardiac testing within the past 5 years and his CV risk factors are well controlled. I discussed this with him and he is in agreement. Fatigue: unclear but quite mild and I don't think requires further workup at this time. Symptoms are short-lived and unlikely to represents systemic process. He is planning to keep a journal of symptoms that may well help us to further clarify etiology of symptoms. Plan: The previous medicines, as noted on the medication list, are being continued. Changes and refills are noted below. Luis was seen today for follow-up. Diagnoses and all orders for this visit: Rib pain - nsaids prn Fatigue, unspecified type - monitor Today's [id number] visit time was 30 minutes with 20 [...] prepared with speech recognition software or keyboard big data lead techniques. Minor irregularities or keyboarding misprints may [...] Mother Alzheimers ??? Heart Disease Father 61 [place] ??? High Blood Pressure Father ??? High [...] as of this encounter Visit Diagnoses Diagnosis Rib pain- Primary Chest pain, unspecified Fatigue, unspecified type documented in this encounter Care Teams Dba Developer Relationship Specialty Start Date End Date Ya Yee MD [address] [place] [phone] PCP - General 02/23/16 10/02/21 documented as of this encounter
--- OUTSIDE RECORDS SUMMARY | 2024-03-02 02:25 | XMS_ITS | Encounter Summary ---
Author Organization [facility] Address [address] [place] [address] Care Team Providers Care Fourdrinier Operator Name Role Phone Ya Yee MD Primary Care Provider [phone] [phone] Encounter Details Date Type Department Care Team (Late st Contact Info) Description 10/21/2018 8:29 EST - 10/21/2018 23:59 EST Hospital Encounter [facility] [address] [place] [id number] Ya Yee MD [address] [place] [phone] Discharge Disposition: Home or Self Care [...] encounter Discharge Diagnoses Diagnosis E78.5 Hyperlipidemia, unspecified-E78.5[ICD-10-CM] Z12.5 Encounter for screening for malignant neoplasm of prostate-Z12.5[ICD-10-CM] Z11.59 Encounter for screening for other viral diseases-Z11.59[ICD-10-CM] documented in this encounter Medications at Time [...] Code Departure Means Destination Home or Self Retirement documented in this encounter Plan of Treatment Not on file documented as of this encounter Goals Goal Patient Goal Type Associated Problems Recent Progress Patient-Stated? Author LDL < 100 Result Component Hyperlipidemia 113( 9 9:29 EDT) Colleen Gracia documented as of this encounter Visit Diagnoses Not on filedocumented in this encounter Care Teams Fourdrinier Operator Relationship Specialty Start Date End Date Ya Yee MD [address] [place] [phone] PCP - General 02/23/16 10/02/21 documented as of this encounter
--- OUTSIDE RECORDS SUMMARY | 2024-03-02 02:25 | XMS_ITS | Encounter Summary ---
Author Organization [facility] Address [address] [place] [address] Care Team Providers Care Gas Engine Repairer Name Role Phone Ya Yee MD Primary Care Provider +1 [phone] Reason for Visit * Reason Comments Follow-up Cerumen Impaction Encounter Details Date Type Department Care Team (Late st Contact Info) Description 10/10/2018 11:05 EST Office Visit [facility] ENT- [address] [phone] Chetna Noble MD [address] [place] [address], [address] [place] [address] Impacted cerumen of both ears [...] Progress Notes * Chetna Noble MD - 10/10/2018 1105 EST His ears feel very plugged today. He is here for his usual 3 month follow up. ENT Cerumenectomy Indications for Procedure: Obstructive copious [...] cerumen documented in this encounter Care Teams Gas Engine Repairer Relationship Specialty Start Date End Date Ya Yee MD [address] [place] [phone] PCP - General 02/23/16 10/02/21 documented as of this encounter
--- OUTSIDE RECORDS SUMMARY | 2024-03-02 02:25 | XMS_ITS | Encounter Summary ---
Author Organization [facility] Address [address] [place] [address] Care Team Providers Care Dive Master Name Role Phone Ya Yee MD Primary Care Provider +1 [phone] Reason for Visit * Reason Comments Cerumen Impaction Encounter Details Date Type Department Care Team (Late st Contact Info) Description 12/21/2016 11:05 EDT Office Visit [facility] ENT- [address] [id number] Chetna Noble MD [address] [place] [address], [address] [place] [address] Bilateral impacted cerumen (Primary Dx) [...] No 08/27/2016 documented as of this encounter Progress Notes * Chetna Noble MD - 12/21/2016 1142 EDT No problems since his last visit. ENT Cerumenectomy Indications for Procedure: Obstructive copious cerumen that cannot be removed safely without magnification and multiple instruments. Careful examination of the ear and removal of cerumen was done on both ears using the operating microscope and microinstruments/suction. The patient tolerated this procedure well. Complications: None Findings: Ears - obstructing cerumen but less than usual today Follow up in 3 months documented in [...] cerumen documented in this encounter Care Teams Dive Master Relationship Specialty Start Date End Date Ya Yee MD [address] [place] [phone] PCP - General 02/23/16 10/02/21 documented as of this encounter
--- OUTSIDE RECORDS SUMMARY | 2024-03-02 02:25 | XMS_ITS | Encounter Summary ---
Author Organization [facility] Address [address] [place] [address] Care Team Providers Care Adult Services Librarian Name Role Phone Ya Yee MD Primary Care Provider +1 [phone] Encounter Details Date Type Department Care Team (Late st Contact Info) Description 08/21/2016 8:55 EST - 08/21/2016 23:59 EST Hospital Encounter [place] [address] [place] [address] Ya Yee MD [address] [place] [phone] Discharge Disposition: Auto Discharge Social History [...] visiting a doctor's office or shopping? No 06/28/2016 Cognitive Status Response Date of Assessm ent Because of a physical, menta l, or emotional condition, does this person have serious difficulty concentrating, remembering, or making decisions? No 06/28/2016 documented as of this encounter Discharge Diagnoses Diagnosis I10 Essential (primary) hypertension-I10[ICD-10-CM] E78.5 Hyperlipidemia, unspecified-E78.5[ICD-10-CM] documented in this encounter Discharge Disposition Disposition [...] on filedocumented in this encounter Care Teams Adult Services Librarian Relationship Specialty Start Date End Date Ya Yee MD [address] [place] [phone] PCP - General 02/23/16 10/02/21 documented as of this encounter
--- OUTSIDE RECORDS SUMMARY | 2024-03-02 02:25 | XMS_ITS | Encounter Summary ---
Author Organization [facility] Address [address] [place] [address] Care Team Providers Care Golf Course Mechanic Name Role Phone Ya Yee MD Primary Care Provider +1 [phone] Encounter Details Date Type Department Care Team (Late st Contact Info) Description 04/19/2018 Phlebotomy Only [facility] [address] [place] [address] Drywall Application Supervisor, Outpatient Hyperlipidemia, unspecified hyperlipidemia type; Benign essential hypertension; Need for hepatitis C [...] PROFILE (INCLUDES CHOLESTEROL, TRIGLYCERIDES, HDL, LDL) Routine 04/19/2018 9:20 EDT Hyperlipidemia, unspecified hyperlipidemia type COMPREHENSIVE METABOLIC PANEL (CMP) Routine 04/19/2018 9:20 EDT Benign essential hypertension documented in this encounter Results * COMPREHENSIVE METABOLIC PANEL (CMP) (04/19/2018 9:20 EDT) Potassium 4.6 3.5 - 5.0 mEq/L 04/19/2018 11:03 [facility] Sodium 141 136 - 145 mEq/L 04/19/2018 11:03 [facility] Chloride 102 96 - 110 mEq/L 04/19/2018 11:03 [facility] CO2 29 22 - 32 mEq/L 04/19/2018 11:03 [facility] Total Alkaline Phosphatase 65 38 - 126 U/L 04/19/2018 11:03 [facility] Bilirubin, Total 1.2 <1.4 mg/dl 04/19/20 18 11:03 [facility] AST 28 15 - 46 U/L 04/19/2018 11:03 [facility] ALT 45 21 - 72 U/L 04/19/2018 11:03 [facility] Albumin 4.4 3.4 - 4.9 g/dl 04/19/2018 11:03 [facility] Total Protein 6.8 6.3 - 8.2 g/dl 04/19/2018 11:03 [facility] Creatinine 0.79 0.66 - 1.25 mg/dl 04/19/2018 11:03 [facility] GFR, Calculated 92 >60 ml/min/1.7 3m2 04/19/2018 11:03 [facility] Comment: eGFR calculated using CKD-EPI equation for non Americans. Multiply eGFR by 1.16 for Americans. BUN 16 10 - 26 mg/dl 04/19/2018 11:03 [facility] Calcium 9.2 8.5 - 10.5 mg/dl 04/19/2018 11:03 [facility] Calculated Calcium 8.9 8.5 - 10.5 mg/dl 04/19/2018 11:03 [facility] Glucose, Serum 91 70 - 100 mg/dl 04/19/2018 11:03 [facility] Fasting? YES 04/19/2018 9:12 [facility] Blood specimen (specimen) BLOOD SPECIMEN / Unknown 04/19/2018 9:20 EDT 04/19/2018 10:34 EDT Ya Yee MD CHEMISTRY & BLOOD GAS ORDERABLES [facility] [address] [place] [address] * LIPID PROFILE (INCLUDES CHOLESTEROL, TRIGLYCERIDES, HDL, LDL) (04/19/2018 9:20 EDT) Cholesterol 231 mg/dl 04/19/2018 11:03 [facility] Comment: Desirable:<200 Borderline High:200-239 High:>oj=136 Triglycerides 130 mg/dl 04/19/2018 11:03 [facility] Comment: Normal:<150 Borderline High:150-199 High:200-499 Very High:>jo=586 HDL 64 mg/dl 04/19/2018 11:03 [facility] Comment: Low:<40 Normal:40-60 Desirable: >60 LDL, Calculated 141 mg/dl 8 11:03 [facility] Comment: Optimal:<100 Near Optimal:100-129 Borderline High:130-159 High:160-189 Very High:>fr=437 Chol/HDL Ratio 3.6 04/19/2018 11:03 [facility] Fasting? YES 04/19/2018 9:12 [facility] Non HDL Cholesterol 167 mg/dl 04/19/2018 11:03 [facility] Comment: Desirable:<130 Borderline:130-159 High: 160-189 Very High: >ay=216 Blood specimen (specimen) BLOOD SPECIMEN / Unknown 04/19/2018 9:20 EDT 04/19/2018 10:34 EDT Ya Yee MD CHEMISTRY & BLOOD GAS ORDERABLES [facility] [address] [place] [address] documented in this encounter Visit Diagnoses Diagnosis Hyperlipidemia, unspecified hyperlipidemia type Benign essential hypertension Essential hypertension, benign Need for hepatitis C screening test Special screening examination for other specified viral diseases documented in this encounter Care Teams Golf Course Mechanic Relationship Specialty Start Date End Date Ya Yee MD [address] [place] [phone] PCP - General 02/23/16 10/02/21 documented as of this encounter
--- OUTSIDE RECORDS SUMMARY | 2024-03-02 02:25 | XMS_ITS | Encounter Summary ---
Author Organization [facility] Address [address] [place] [address] Care Team Providers Care Hair Stylist Name Role Phone Ya Yee MD Primary Care Provider +1 [phone] Reason for Visit * Reason Comments Cerumen Impaction Encounter Details Date Type Department Care Team (Late st Contact Info) Description 03/26/2017 8:15 EDT Office Visit [facility] [place] [facility] ENT- [address] [phone] Chetna Noble MD [address] [place] [address], [address] [place] [address] Bilateral impacted cerumen (Primary Dx) [...] Progress Notes * Chetna Noble MD - 03/26/2017 1332 EDT No problems with his ears since his last visit. ENT Cerumenectomy Indications for Procedure: Obstructive copious cerumen that cannot be removed safely without magnification and multiple instruments. Careful examination of the ear and removal of cerumen was done on both ears using the operating microscope and microinstruments/suction. The patient tolerated this procedure well. Complications: None Findings: Ears - dry, firm cerumen obstructing canals, canals and TMs wnl once cerumen removed [...] cerumen documented in this encounter Care Teams Hair Stylist Relationship Specialty Start Date End Date Ya Yee MD [address] [place] [phone] PCP - General 02/23/16 10/02/21 documented as of this encounter
--- OUTSIDE RECORDS SUMMARY | 2024-03-02 02:25 | XMS_ITS | Encounter Summary ---
Author Organization [facility] Address [address] [place] [address] Care Team Providers Care Fitting Room Checker Name Role Phone Ya Yee MD Primary Care Provider +1 -[phone] Encounter Details Date Type Department Care Team (Latest Contact Info) Description 03/14/2018 13:57 EDT - 03/14/2018 23:59 EDT Hospital Encounter [address] [address] Gilmer Angel MD [address] [place] [address] Discharge Disposition: Auto Discharge Social History Tobacco [...] as of this encounter Discharge Diagnoses Diagnosis N20.0 Calculus of kidney-N20.0[ICD-10-CM] N28.1 Cyst of kidney, acquired-N28.1[ICD-10-CM] documented in this encounter Medications at Time [...] on filedocumented in this encounter Care Teams Fitting Room Checker Relationship Specialty Start Date End Date Ya Yee MD [address] [place] [phone] PCP - General 02/23/16 10/02/21 documented as of this encounter
--- OUTSIDE RECORDS SUMMARY | 2024-03-02 02:25 | XMS_ITS | Encounter Summary ---
Author Organization [facility] Address [address] [place] [address] Care Team Providers Care High School Computer Science Teacher Name Role Phone Ya Mcdermott MD Primary Care Provider +1 -[phone] Reason for Visit * Reason Onset Date Comments Paperwork request 10/11/2016 PT Dropped of employer workplace program to be signed by dr [email or web address] and mailed back in [employer] Encounter Details Date Type Department Care Team (Late st Contact Info) Description 10/11/2016 Telephone [facility] Adult Primary Care - [address] [phone] Ya Mcdermott MD [address] [place] [phone] Paperwork request (PT Dropped of employer workplace program to be signed by dr mcdermott and mailed back in [employer]) Social History Tobacco Use Types Packs/Day Years [...] * Telephone Encounter - Viktoria Foote - 10/12/2016 1101 EST Paperwork completed and returned to patient via pre posted envelope provided by patient. documented in this encounter Plan of Treatment Not on file documented as of this encounter Goals Goal Patient Goal Type Associated Problems Recent Progress Patient-Stated? Author LDL < 100 Result Component Hyperlipidemia 113( 9 9:29 EDT) No Colleen Arora documented as of this encounter Visit Diagnoses Not on filedocumented in this encounter Care Teams High School Computer Science Teacher Relationship Specialty Start Date End Date Ya Mcdermott MD [address] [place] [phone] PCP - General 02/23/16 10/02/21 documented as of this encounter
--- OUTSIDE RECORDS SUMMARY | 2024-03-02 02:25 | XMS_ITS | Encounter Summary ---
Author Organization [facility] Address [address] [place] [address] Care Team Providers Care Automotive Teacher Name Role Phone Ya Yee MD Primary Care Provider +1 [phone] Reason for Visit * Reason Onset Date Comments Appointment Related 08/20/2016 Encounter Details Date Type Department Care Team (Late st Contact Info) Description 08/20/2016 Telephone [facility] Adult Primary Care - [address] [phone] Ya Yee MD [address] [place] [phone] Appointment Related Social History Tobacco Use [...] No 06/28/2016 documented as of this encounter Miscellaneous Notes * Telephone Encounter - Colleen Arora - 08/20/2016 0939 EST Called patient and left message regarding upcoming appt on 08/27/2016 and need for fasting labs prior. Fasting labs explained in msg, lab hours provided. Office phone number provided for questions. Colleen Arora CMA (AAND) documented in this encounter Plan of Treatment Not on file documented as of this encounter Goals Goal Patient Goal Type Associated Problems Recent Progress Patient-Stated? Author LDL < 100 Result Component Hyperlipidemia 113( 9 9:29 EDT) No Colleen Arora documented as of this encounter Visit Diagnoses Not on filedocumented in this encounter Care Teams Automotive Teacher Relationship Specialty Start Date End Date Ya Yee MD [address] [place] [phone] PCP - General 02/23/16 10/02/21 documented as of this encounter
--- OUTSIDE RECORDS SUMMARY | 2024-03-02 02:25 | XMS_ITS | Encounter Summary ---
Author Organization [facility] Address [address] [place] [address] Care Team Providers Care Business Process Consultant Name Role Phone Ya Yee MD Primary Care Provider +1 [phone] Reason for Visit * Reason Comments Cerumen Impaction Encounter Details Date Type Department Care Team (Late st Contact Info) Description 09/26/2017 9:55 EST Office Visit [facility] ENT- [address] [phone] Chetna Noble MD [address] [place] [address], [address] [place] [address] Bilateral impacted cerumen (Primary Dx) [...] Progress Notes * Chetna Noble MD - 09/26/2017 1235 EST No problems since his last visit here. ENT Cerumenectomy Indications for Procedure: Obstructive copious cerumen that cannot be removed safely without magnification and multiple instruments. Careful examination of the ear and removal of cerumen was done on both ears using the operating microscope and microinstruments/suction. The patient tolerated this procedure well. Complications: None Findings: Ears - firm cerumen removed from both canals, TMs and canals are wnl Follow up in 3 months documented in [...] cerumen documented in this encounter Care Teams Business Process Consultant Relationship Specialty Start Date End Date Ya Yee MD [address] [place] [phone] PCP - General 02/23/16 10/02/21 documented as of this encounter
--- OUTSIDE RECORDS SUMMARY | 2024-03-02 02:25 | XMS_ITS | Encounter Summary ---
Author Organization [facility] Address [address] [place] [address] Care Team Providers Care Yarn Wrapper Name Role Phone Ya Yee MD Primary Care Provider +1 [phone] Encounter Details Date Type Department Care Team (Late st Contact Info) Description 01/18/2017 9:16 EDT - 01/18/2017 23:59 EDT Hospital Encounter [facility] [phone] Ya Yee MD [address] [place] [phone] Discharge Disposition: Home or Self Care [...] as of this encounter Discharge Diagnoses Diagnosis H81.11 Benign paroxysmal vertigo, right ear-H81.11[ICD-10-CM] documented in this encounter Medications at Time of Discharge Medication Sig Dispensed Refills Start Date End Date ERGOCALCIFEROL, VITAMIN D2, (VITAMIN D ORAL) Take by mouth daily. 03/10/2018 meclizine (ANTIVERT) 12.5 mg tablet Take 1-2 Tabs by mouth 3 times daily as needed for Dizziness. 30 Tab 1 01/16/2017 03/03/2018 documented as of this encounter Discharge Disposition Disposition Code Departure Means Destination Home or Self Usp documented in this encounter Plan of Treatment Not on file documented as of this encounter Goals Goal Patient Goal Type Associated Problems Recent Progress Patient-Stated? Author LDL < 100 Result Component Hyperlipidemia 113( 9 9:29 EDT) Colleen Gracia documented as of this encounter Visit Diagnoses Not on filedocumented in this encounter Care Teams Yarn Wrapper Relationship Specialty Start Date End Date Ya Yee MD [address] [place] [phone] PCP - General 02/23/16 10/02/21 documented as of this encounter
--- OUTSIDE RECORDS SUMMARY | 2024-03-02 02:25 | XMS_ITS | Encounter Summary ---
Author Organization [facility] Address [address] [place] [address] Care Team Providers Care Strand Buncher Fine Wire Name Role Phone Ya Yee MD Primary Care Provider +1 -[phone] Reason for Visit * Reason Onset Date Comments Follow-up 03/07/2018 Encounter Details Date Type Department Care Team (Late st Contact Info) Description 03/07/2018 Telephone [facility] Adult Primary Care - [address] [phone] Lauren Grimes PA-C [address] [place] [address] Follow-up Social History Tobacco Use Types Packs/Day Years [...] No 12/19/2017 documented as of this encounter Ordered Prescriptions Prescription Sig Dispensed Refills Start Date End Da te metroNIDAZOLE (FLAGYL) 500 mg tablet Take 1 Tab by mouth 3 times daily for 2 days. 6 Tab 03/07/2018 03/09/2018 ciprofloxacin HCl (CIPRO) 500 mg tablet Take 1 Tab by mouth 2 times daily. 4 Tab 03/07/2018 03/10/2018 documented in this encounter Miscellaneous Notes * Telephone Encounter - Lauren Grimes PA-C - 03/07/2018 1217 EDT Reached out to patient to assess symptoms, states the pain has improved but is still present, continues to have frequent bowel movements. Denies fevers, chills. Will extend antibiotics an additional 2 days for a full week of treatment, reassess on Saturday. If still present will order non-urgent CT scan. documented in this encounter Plan of Treatment Not on file documented as of this encounter Goals Goal Patient Goal Type Associated Problems Recent Progress Patient-Stated? Author LDL < 100 Result Component Hyperlipidemia 113( 9 9:29 EDT) No Colleen Arora documented as of this encounter Visit Diagnoses Not on filedocumented in this encounter Discontinued Medications Medication Sig Discontinue Reason Start Date End Da te ciprofloxacin HCl (CIPRO) 500 mg tablet Take 1 Tab by mouth 2 times daily. Reorder 03/03/2018 03/07/2018 metroNIDAZOLE (FLAGYL) 500 mg tablet Take 1 Tab by mouth 3 times daily for 5 days. Reorder 03/03/2018 03/07/2018 documented as of this encounter Care Teams Strand Buncher Fine Wire Relationship Specialty Start Date End Date Ya Yee MD [address] [place] [phone] PCP - General 02/23/16 10/02/21 documented as of this encounter
--- OUTSIDE RECORDS SUMMARY | 2024-03-02 02:25 | XMS_ITS | Encounter Summary ---
Author Organization [facility] Address [address] [place] [address] Care Team Providers Care Casting Technician Name Role Phone Ya Yee MD Primary Care Provider +1 -[phone] Reason for Visit * Reason Comments Follow-up Cerumen Impaction Encounter Details Date Type Department Care Team (Late st Contact Info) Description 06/27/2017 10:10 EST Office Visit [facility] ENT- [address] [phone] Chetna Noble MD [address] [place] [address], [address] [place] [address] Bilateral impacted cerumen (Primary Dx); Sensorineural hearing loss (SNHL) of both ears Social History Tobacco Use Types Packs/Day Years [...] Progress Notes * Chetna Noble MD - 06/27/2017 1130 EST Left ear is especially plugged to day. He also has some problems with his hearing. It has been 3 years since his last audio and he would like to recheck today. ENT Cerumenectomy Indications for Procedure: Obstructive copious cerumen that cannot be removed safely without magnification and multiple instruments. Careful examination of the ear and removal of cerumen was done on both ears using the operating microscope and microinstruments/suction. The patient tolerated this procedure well. Complications: None Findings: Ears - wnl once cerumen removed Audio - stable SNHL Follow up in 3 mos documented in this encounter Plan of Treatment Scheduled Orders Name Type Priority Associated Diagnoses Orde r Schedule HEARING EVALUATION Audiology Routine Sensorineural hearing loss (SNHL) of both ears Ordered: 06/27/2017 documented as of this encounter Goals Goal Patient Goal Type Associated Problems Recent Progress Patient-Stated? Author LDL < 100 Result Component Hyperlipidemia 113( 9 9:29 EDT) No Colleen Arora documented as of this encounter Procedures Procedure Name Priority Date/Time Associated Diagnosis Comments AUDIOGRAM - SCANNED 07/04/2017 10:33 EST documented in this encounter Results * AUDIOGRAM - SCANNED (07/04/2017 10:33 EST) 07/04/2017 10:3 3 EST Scan 2 Towel Inspector PROCEDURE/MINOR KANWAL GICAL ORDERABLES documented in this encounter Visit Diagnoses Diagnosis Bilateral impacted cerumen- Primary Impacted cerumen Sensorineural hearing loss (SNHL) of both ears documented in this encounter Care Teams Casting Technician Relationship Specialty Start Date End Date Ya Yee MD [address] [place] [phone] PCP - General 02/23/16 10/02/21 documented as of this encounter
--- OUTSIDE RECORDS SUMMARY | 2024-03-02 02:25 | XMS_ITS | Encounter Summary ---
Author Organization [facility] Address [address] [place] [address] Care Team Providers Care Speech Lang Path Name Role Phone Ya Yee MD Primary Care Provider [phone] Reason for Referral * Radiology Services (Routine) - Specialty Report Received Specialty Diagnoses / Procedures Referred By Contac t Referred To Contact Diagnoses Acute left flank pain Procedures RAD US RETROPERITONEAL COMPLETE Gilmer Angel MD [address] [place] [id number] Referral ID Status Reason Start Date Expiration Date V isits Requested Visits Authorized [id number] Specialty Report Received 03/10/2018 1 1 Reason for Visit * Reason Comments Abdominal Pain Encounter Details Date Type Department Care Team (Late st Contact Info) Description 03/10/2018 16:15 EDT Office Visit [facility] [place] [address] [place], [place] [address] Gilmer Angel MD [address] [place] [phone] Acute left flank pain (Primary Dx) Social [...] Sign Reading Time Taken Comments Blood Pressure 128/70 03/10/2018 1612 EDT Pulse 68 03/10/2018 1612 EDT Temperature 36.7 ??C (98 ??F) 03/10/2018 1612 EDT Respiratory Rate 16 03/10/2018 1612 EDT Oxygen Saturation - - Inhaled Oxygen Concentration - - Weight 73.7 kg (162 lb 8 oz) 03/10/2018 1612 EDT Height - - Body Mass Index 23.32 03/07/2018 0824 EDT documented in this encounter Functional Status [...] No 03/10/2018 documented as of this encounter Patient Instructions * Patient Instructions* Gilmer Angel MD - 03/10/2018 16:15 EDT - Schedule Ultrasound of LEFT flank now - Go to the lab before next visit - STOP alcohol for at least 1-2 week pending assessment of pain - If pain persists and US is not revealing we will consider CT at that time - Follow-up with Dr. Yee in 1 month if not improved documented in this encounter Progress Notes * Gilmer Angel MD - 03/10/2018 1615 EDT HPI: Luis Clayton is a 67 y.o. male with a hx of diverticulitis recently presented to this clinic with adominal pain, treated for mild diverticulitis with Cipro and Metronidazole, who presents for Abdominal Pain. Last felt at usual state of health in early summer. Now pain has increased gradually since late January. He is able to identify the discomfort localized to the left flank and side worse when direct pressure is applied to this area. He believes that pain is associated with a gradual worsening of fatigue. He was diagnosed with acute diverticulitis on 03/03/18 and started on a course of metronidazole and ciprofloxacin. He felt miserable on Cipro and Metronidazole, no improvement on this treatment. Suspects he had kidney stones in the past, never confirmed. Pain at that time was similar to what he continues to feel now. He has had some mild changes tostool, noted softer and looser but otherwise no bright red blood. Stools have been darker, no tarrysubstance noted. Abdominal pain is not associated with increased frequency of bowel movements nor does it improve after bowel movement. He endorses no frontal abdominal pain or midline back. No recent travel. Of note the patient endorses a several year history of vague intermittent abdominal body wall pain for which she has been evaluated several times. He had negative abdominal ultrasound in 11/2013, negative CT renal colic and 12/30, again in 08/02. These episodes of discomfort were concluded to be bodywall pain, he was treated symptomatically with spontaneous resolution. He notes his current pain issimilar to these prior episodes. ROS 10 pt ROS performed and negative unless otherwise noted above. Current Outpatient Prescriptions: acetaminophen (TYLENOL) 325 mg tablet ciprofloxacin HCl (CIPRO) 500 mg tablet ERGOCALCIFEROL, VITAMIN D2, (VITAMIN D ORAL) ibuprofen (MOTRIN) 200 mg tablet No current facility-administered medications for this [...] onset: 57) in his brother. Social History Substance Use Topics ??? Smoking status: Never Smoker ??? Smokeless tobacco: Never Used Comment: Quit as a teenager ??? Alcohol use 4.8 oz/week 8 Glasses of wine per week Social History Social History Narrative OBJECTIVE: Blood pressure 128/70, pulse 68, temperature 36.7 ??C (98 ??F), temperature source Tympanic, resp. rate 16, weight 73.7 kg (162 lb 8 oz). General: Well-nourished, Well-developed, Sitting comfortably in chair, No distress HEENT: atraumatic, anicteric sclera Lymph: no palpable cervical/sub-mandibular/occipital/supra-clavicular or inguinal lymphadenopathy PULM: CTAB, no wheeze, crackles, rhonchi. No increased work of breathing. COR: RRR, s1, s2, No M/R/G. 2+ pulses bUE/bLE, No lower extremity edema Abdomen: soft, non-distended, no masses palpated. There is no costovertebral angle tenderness to percussion. There is no tenderness to percussion in the midline spine. There is no tenderness to deep palpation of all 4 quadrants of the abdomen. There is moderate tenderness to deep palpation of the Right Oblique muscle group. Musculoskel: No large joint swelling or tenderness Skin: Nondiaphoretic, no jaundice. No rashes, open wounds, no stasis change of lower extremities Neuro/Psych: Alert, Oriented, Appropriate, Conversant. Strength, Coordination, Sensation in-tact grossly. Results Reviewed I have reviewed the laboratory and imaging data below: Lab Results Component Value Date NA 144 08/21/2016 K 5.0 08/21/2016 CL 103 08/21/2016 CO2 28 08/21/2016 BUN 15 08/21/2016 Lab Results Component Value Date WBC 4.90 09/03/2016 RBC 4.90 09/03/2016 HGB 15.9 09/03/2016 HCT 44.8 09/03/2016 PLT 279 09/03/2016 MCV 91 09/03/2016 MCH 32.4 09/03/2016 MCHC 35.5 09/03/2016 Lab Results Component Value Date TP 7.1 08/21/2016 No results found for: INR Lab Results Component Value Date CHOL 221 08/21/2016 HDL 54 08/21/2016 TRIG 96 08/21/2016 CHOLHDL 4.1 08/21/2016 Lab Results Component Value Date TSH 1.43 09/03/2016 TSH 1.30 01/20/2014 TSH 0.94 01/04/2004 CT renal colic (08/09/15) Impression: ?? 1. No radiopaque calculi identified. No hydroureteronephrosis or perinephric stranding bilaterally. 2. Normal appendix. 3. Sigmoid diverticulosis without evidence of diverticulitis. 4. Mild degenerative changes of lumbar spine. CT renal colic (5/8/14) Impression: ?? 1. No acute abnormalities. No nephrolithiasis, hydronephrosis, cholelithiasis or cholecystitis. 2. Mild diverticulosis ASSESSMENT and PLAN: 67 y.o. male patient of Dr. Ya Yee with HTN, HLD, mild proteinuria with a vague history of intermittent abdominal wall pain presenting for Abdominal Pain found to have left flank pain worseon direct palpation. Appears to be benign body wall pain secondary to muscle strain, however passage of ureteral stone could present very similarly. Rule out ureterolithiasis, urinary tract infection, other inflammatory etiology today, otherwise conservative management for musculoskeletal pain withclose follow-up for worsening/nonresolution. Acute left flank pain. Established, stable. No red flags for acute inflammatory process/SIRS. Despite frequent negative imaging in the past ureterolithiasis would present similarly. Unlikely acute diverticulitis based on history and exam. - C Reactive Protein (use to detect acute inflammation); Future - RAD US RETROPERITONEAL COMPLETE - Complete Blood Count and Differential; Future - UA, Chemical and Sediment Analysis (dipstick and microscopic); Future - Urine Culture if UA Positive - Reflex MUST order a UA test; Future - Consider CT abdomen pelvis if worsening acute pain or fevers Healthcare Maintenance: - Hepatitis C screening due - Shingles recombinant due, deferred in setting of shortage - AAA screen due - HCM visit due Please Note: Part or all of this document was created with voice recognition software. The note hasbeen reviewed for accuracy; however typographical errors may be present. An electronic copy of this note was forwarded to Dr. Ya Yee. documented in this encounter Plan of Treatment Not on file documented as of this encounter Goals Goal Patient Goal Type Associated Problems Recent Progress Patient-Stated? Author LDL < 100 Result Component Hyperlipidemia 113( 9 9:29 EDT) No Colleen Arora documented as of this encounter Procedures Procedure Name Priority Date/Time Associated Diagnosis Comments RAD US RETROPERITONEAL COMPLETE Routine 03/14/2018 14:19 EDT Acute left flank pain documented in this encounter Results * RAD US RETROPERITONEAL COMPLETE (03/14/2018 14:19 EDT) Anatomical Region Laterality Modality Other 03/14/2018 14:1 9 EDT 03/14/2018 15:48 EDT Narrative 03/14/2018 15:48 EDT RAD US RETROPERITONEAL COMPLETE ??03/14/2018 2:19 PM SIGNS AND SYMPTOMS/COMMENTS: ??R10.9-Unspecified abdominal pain-ICD-10; Pain Rule out nephrolithiasis, ureterolithiasis COMPARISON: CT renal colic 08/16/2015 TECHNIQUE: Grayscale and color Doppler ultrasound images of the kidneys and bladder were performed. RIGHT KIDNEY: ?? Cortex: Normal. ?? Echogenicity: ??Normal. ?? Size: ??10.1 cm, which is normal. ?? Hydronephrosis: None. ?? Lesions: In the lower pole the kidney there is a 12 mm simple cyst, and an adjacent, round hyperechoic structure. LEFT KIDNEY: ?? Cortex: Normal ?? Echogenicity: ??Normal. ?? Size: ??10.6 cm, which is normal. ?? Hydronephrosis: None. ?? Lesions: None. BLADDER: The urinary bladder measures 7.4 x 8.3 x 9.1 cm, for a estimated volume of 290 mL. The bladder contains simple anechoic fluid consistent with urine. IMPRESSION: 1. Right renal cyst and nonobstructing renal stone. 2. Otherwise normal retroperitoneal ultrasound. I have personally reviewed the images and the above interpretation and agree with the findings. Procedure Note Silvino Campos MD - 03/14/2018 RAD US RETROPERITONEAL COMPLETE 03/14/2018 2:19 PM SIGNS AND SYMPTOMS/COMMENTS: R10.9-Unspecified abdominal pain-ICD-10; Pain Rule out nephrolithiasis, ureterolithiasis COMPARISON: CT renal colic 08/16/2015 TECHNIQUE: Grayscale and color Doppler ultrasound images of the kidneys and bladder were performed. RIGHT KIDNEY: Cortex: Normal. Echogenicity: Normal. Size: 10.1 cm, which is normal. Hydronephrosis: None. Lesions: In the lower pole the kidney there is a 12 mm simple cyst, and an adjacent, round hyperechoic structure. LEFT KIDNEY: Cortex: Normal Echogenicity: Normal. Size: 10.6 cm, which is normal. Hydronephrosis: None. Lesions: None. BLADDER: The urinary bladder measures 7.4 x 8.3 x 9.1 cm, for a estimated volume of 290 mL. The bladder contains simple anechoic fluid consistent with urine. IMPRESSION: 1. Right renal cyst and nonobstructing renal stone. 2. Otherwise normal retroperitoneal ultrasound. I have personally reviewed the images and the above interpretation and agree with the findings. Gilmer Angel MD IMG US MEAGAN CHAPPELL * URINE CULTURE IF UA POSITIVE - NON POCT URINALYSIS ONLY (03/11/2018 11:49 EDT) Culture if Indicated Culture not indicated by urinalysis results. 03/11/2018 12:48 EDT [facility] Urine specimen (specimen) TOPOGRAPHY UNKNOWN / Unknown 03/11/2018 11:49 EDT 03/11/2018 12:38 EDT Gilmer Angel MD MICROBIOLOG Y - GENERAL ORDERABLES Performing Organization Address City/State/[facility] Co de Phone Number [facility] [address] [place] [phone] * UA, CHEMICAL AND SEDIMENT ANALYSIS (DIPSTICK AND MICROSCOPIC) (03/11/2018 11:49 EDT) Color, UA Colorless 03/11/2018 12:48 T [facility] Clarity, UA Clear 03/11/2018 12:48 T [facility] Glucose, UA Neg Neg 03/11/2018 12:48 T [facility] Bilirubin, UA Neg Neg 03/11/2018 12:48 T [facility] Ketones, UA Neg Neg 03/11/2018 12:48 T [facility] Refractometer SG,Urine 1.007 1.001 - 1.035 03/11/2018 12:48 T [facility] Blood, UA Neg Neg 03/11/2018 12:48 [facility] pH, UA 6.5 4.6 - 8.0 03/11/2018 12:48 [facility] Protein, UA Neg Neg 03/11/2018 12:48 [facility] Urobilinogen, UA Normal Normal E.U./dl 03/11/2018 12:48 [facility] Nitrite, UA Neg Neg 03/11/2018 12:48 [facility] Leuk Esterase Neg Neg 03/11/2018 12:48 [facility] UA Method Used 03/11/2018 11:39 [facility] Comment: Testing performed using Digify [id number]. Urine RBC Count Automated 0 to 2 0 to 2 /HPF 03/11/2018 12:48 [facility] Urine WBC Count Automated 0 to 3 0 to 3 /HPF 03/11/2018 12:48 [facility] Urine Squamous Epithelial Cell Count, Automated None seen None seen /LPF 03/11/2018 12:48 [facility] Urine Hyaline Casts, Automated < or = 10 < or = 10 /LPF 03/11/2018 12:48 [facility] Urine Bacteria Count, Automated None seen None seen 03/11/2018 12:48 [facility] UA Comment Sediment results 03/11/2018 12:48 [facility] Comment: are unreliable on urines unrefrig >2hrs or refrig >8hrs. Urine specimen (specimen) URINE / Unknown 03/11/2018 11:49 EDT 03/11/2018 12:38 EDT Gilmer Angel MD URINALYSIS ORDERABLES [facility] [address] [place] [address] * COMPLETE BLOOD COUNT AND DIFFERENTIAL (03/11/2018 11:49 EDT) WBC 5.40 4.0 - 10.4 K/cmm 03/11/2018 12:51 [facility] RBC 4.80 4.36 - 5.78 M/cmm 03/11/2018 12:51 [facility] Hemoglobin 15.6 13.8 - 17.3 gm/dl 03/11/2018 12:51 [facility] HCT 44.2 39.5 - 50.2 % 03/11/2018 12:51 [facility] MCV 92 81 - 95 fl 03/11/2018 12:51 [facility] MCH 32.5 27.6 - 33.0 pg 03/11/2018 12:51 [facility] MCHC 35.3 32.8 - 36.4 gm/dl 03/11/2018 12:51 [facility] RDW-CV 12.6 <14.2 % 03/11/2018 12:51 [facility] RDW-SD 42.3 <46.0 fl 03/11/2018 12:51 [facility] PLT 248 141 - 377 K/cmm 03/11/2018 12:51 [facility] MPV 11.0 9.5 - 12.7 fl 03/11/2018 12:51 [facility] % Neutrophils 62.4 % 03/11/2018 12:51 [facility] % Lymphocytes 23.0 % 03/11/2018 12:51 [facility] % Monocytes 11.3 % 03/11/2018 12:51 [facility] % Eosinophils 2.4 % 03/11/2018 12:51 [facility] % Basophils 0.7 % 03/11/2018 12:51 [facility] % Immature Grans 0.2 % 03/11/2018 12:51 [facility] ABS Neutrophils 3.37 2.20 - 8.85 K/cmm 03/11/2018 12:51 [facility] ABS Lymphs 1.24 1.09 - 3.30 K/cmm 03/11/2018 12:51 [facility] ABS Monocytes 0.61 0.1 - 0.8 K/cmm 03/11/2018 12:51 [facility] ABS Eosinophils 0.13 0.03 - 0.61 K/cmm 03/11/2018 12:51 [facility] ABS Basophils 0.04 0.01 - 0.11 K/cmm 03/11/2018 12:51 EDT [facility] ABS Immature Grans 0.01 0 - 0.06 K/cmm 03/11/2018 12:51 EDT [facility] Type of Diff: Automated 03/11/2018 12:51 EDT [facility] Blood specimen (specimen) BLOOD SPECIMEN / Unknown 03/11/2018 11:49 EDT 03/11/2018 12:42 EDT Gilmer Angel MD PACKAGES & DNA PROBE ORDERABLES Performing Organization Address City/[facility]/ZIP Co de Phone Number [facility] [address] [place] [address] * C REACTIVE PROTEIN (03/11/2018 11:49 EDT) C Reactive Protein <7.0 <10.0 mg/L 03/11/2018 13:25 EDT [facility] Blood specimen (specimen) BLOOD SPECIMEN / Unknown 03/11/2018 11:49 EDT 03/11/2018 12:42 EDT Gilmer Angel MD CHEMISTRY & BLOOD GAS ORDERABLES Performing Organization Address City/[facility] Co de Phone Number [facility] [address] [place] [address] documented in this encounter Visit Diagnoses Diagnosis Acute left flank pain- Primary Abdominal pain, unspecified site documented in this encounter Discontinued Medications Medication Sig Discontinue Reason Start Date End Da te ciprofloxacin HCl (CIPRO) 500 mg tablet Take 1 Tab by mouth 2 times daily. Therapy completed 03/07/2018 03/10/2018 ERGOCALCIFEROL, VITAMIN D2, (VITAMIN D ORAL) Take by mouth daily. Error 03/10/2018 documented as of this encounter Historical Medications * This list may reflect changes made after this encounter. Medication Sig Dispensed Refills Start Date End Date Cholecalciferol, Vitamin D3, 400 unit tablet Take 1,000 Units by mouth daily. added in this encounter Care Teams Speech Lang Path Relationship Specialty Start Date End Date Ya Yee MD [address] [place] [id number] PCP - General 02/23/16 10/02/21 documented as of this encounter
--- OUTSIDE RECORDS SUMMARY | 2024-03-02 02:25 | XMS_ITS | Encounter Summary ---
Author Organization [facility] Address [address] [place] [address] Care Team Providers Care Beverage Distiller Name Role Phone Ya Yee MD Primary Care Provider [phone] [phone] Reason for Visit * Reason Comments Follow-up Cerumen Impaction Encounter Details Date Type Department Care Team (Late st Contact Info) Description 03/20/2018 9:20 EDT Office Visit [facility] ENT- [address] [id number] Chetna Noble MD [address] [place] [address], [address] [place] [address] Impacted cerumen of both ears [...] Progress Notes * Chetna Noble MD - 03/20/2018 0948 EDT No problems since his last visit. He relates that his stepson is doing well after removal of his lip lesion. ENT Cerumenectomy Indications for Procedure: Obstructive copious cerumen that cannot be removed safely without magnification and multiple instruments. Careful examination of the ear and removal of cerumen was done on both ears using the operating microscope and microinstruments/suction. The patient tolerated this procedure well. Complications: None Findings: Ears - right - canal and TM wnl once cerumen removed, left - some hair in canal removed, some wet cerumen along TM removed also Follow up in 3 months documented in [...] cerumen documented in this encounter Care Teams Beverage Distiller Relationship Specialty Start Date End Date Ya Yee MD [address] [place] [phone] PCP - General 02/23/16 10/02/21 documented as of this encounter
--- OUTSIDE RECORDS SUMMARY | 2024-03-02 02:25 | XMS_ITS | Encounter Summary ---
Author Organization [facility] Address [address] [place] [address] Care Team Providers Care Overnight Associate Name Role Phone Ya Yee MD Primary Care Provider [phone] [phone] Reason for Referral * Radiology Services (Routine) - Closed Specialty Diagnoses / Procedures Referred By Contac t Referred To Contact Diagnoses Rib pain Procedures CHEST PA AND LATERAL Ya Yee MD [address] [place] [phone] Referral ID Status Reason Start Date Expiration Date Visits Re quested Visits Authorized [id number] Closed 08/27/2016 1 1 Reason for Visit * Reason Comments Annual Exam Shoulder Pain should muscle pains? more on left side Hypertension does not currently t harshal BP meds, asking if he should Encounter Details Date Type Department Care Team (Late st Contact Info) Description 08/27/2016 10:00 EST Office Visit [facility] - [address] [id number] Ya Yee MD [address] [place] [phone] Rib pain (Primary Dx); Need for vaccination; Fatigue, unspecified type Social History Tobacco Use [...] Sign Reading Time Taken Comments Blood Pressure 120/78 08/27/2016 1003 EST Pulse 60 08/27/2016 1003 EST Temperature 36.7 ??C (98 ??F) 08/27/2016 1003 EST Respiratory Rate 20 08/27/2016 1003 EST Oxygen Saturation - - Inhaled Oxygen Concentration - - Weight 75.3 kg (166 lb) 08/27/2016 1003 EST Height 177.8 cm (5' 10) 08/27/2016 1003 EST Body Mass Index 23.82 08/27/2016 1003 EST [...] Progress Notes * Ya Yee MD - 08/27/2016 1000 EST Patient ID: Luis Clayton Chief Complaint: Annual Exam; Shoulder Pain (should muscle pains? more on left side); and Hypertension (does not currently take BP meds, asking if he should) Patient Profile: The patient is a 65 y.o. 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 He is and lives with his . Current exercise: no regular exercise. Current diet: healthy dietin general. Stress concerns are: none. Functional or impairment concerns are: none. His home environment is safe. His activities of daily living are normal. History of present Illness (HPI): Mr. Ramirez presents for annual exam. Generally doing well though has been having some pain in his chest wall and axilla on the left. No diaphoresis, SOB, CP. Has been ongoing for years-- comes a goes. Not associated with movement. Does note that it has been easy to lose weight over the past 6 months. Has lost 10lbs without really trying, though did eliminate dairy from his diet. Denies cough, SOB. NO f/c, night sweats, GI complaints. [place] in 2014 wnl. Also has some fatigue. Sleeps well though does get up very early for work. Otherwise feeling well. No complaints. Patient Active Problem List Diagnosis Date Noted ??? 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 Proteinuria 04/16/2013 ??? Benign essential hypertension 03/13/2013 ??? Degenerative joint disease involving multiple joints 03/13/2013 ??? Hyperlipidemia 03/13/2013 ??? Sensorineural hearing loss 11/02/2011 Past Medical History Diagnosis Date ??? Benign essential hypertension 03/13/2013 Past Surgical History Procedure Laterality Date ??? Facial cosmetic surgery Had a lesion removed just above lip on 10/02/10 ??? Tonsillectomy ??? Hernia repair Family History Problem Relation Age of Onset ??? Prostate Cancer Brother 59 ??? Cancer Brother prostate ??? Dementia Mother Alzheimers ??? Heart Disease Father 61 [place] ??? High Blood Pressure Father ??? High Cholesterol Father ??? Heart Disease Paternal Uncle ??? Diabetes Paternal Uncle No current outpatient prescriptions on file. No Known Allergies Social History Substance Use Topics ??? Smoking status: Never Smoker ??? Smokeless tobacco: Never Used Comment: Quit as a teenager ??? Alcohol use 4.8 oz/week 8 Glasses of wine per week Review of Systems: System Neg Pos Comments Constitutional x Weight loss Eyes x ENT x Cardiovascular x Pulmonary x Gastrointestinal x Genitourinary x Musculoskeletal x Chest wall pain Skin/breast x Neurological x Psychiatric x Endocrine x Hematologic Lymphatic x Allergic Immunologic x Behavioral Health Screen Summary Interpretation PHQ-2: 0 PHQ-9: SUZETTE-2: SUZETTE-7: SASQ: Never AUDIT-10: SSASQ: Never DAST-10: . Objective: Physical Examination: Visit Vitals ??? BP 120/78 (BP Cuff Location: Left arm, Patient Position: Sitting, BP Cuff Sizes: Adult, large) ??? Pulse 60 ??? Temp 36.7 ??C (98 ??F) (Tympanic) ??? Resp 20 ??? Ht 177.8 cm (70) ??? Wt 75.3 kg (166 lb) ??? BMI 23.82 kg/m2 General: Alert, cooperative, no distress. Head: Normocephalic, without obvious abnormality. Ears: Normal TMs and external ear canals both ears. Hearing grossly nl. Nose: Nares normal. Septum midline. Mucosa normal. No drainage or sinus tenderness. Throat: Lips, mucosa, and tongue normal. Teeth and gums normal. Neck: Supple, symmetrical, trachea midline, no adenopathy, thyroid: no enlargement, tenderness or nodules, no carotid bruit and no JVD. Back: Symmetric, no curvature. No spinal or CVA tenderness. Lungs: Clear to auscultation bilaterally. Chest wall: No tenderness or deformity. Heart: Regular rate and rhythm, S1, S2 normal, no systolic murmur, no click, rub or gallop. Abdomen: Soft, non-tender. Bowel sounds normal. No masses, No organomegaly, no bruits or evidence for aneurysm. Extremities: Extremities atraumatic, no clubbing, cyanosis or edema Musculoskeletal: No joint swelling, effusion or redness. Osteoarthritis changes are absent Pulses: 2+ and symmetric all extremities. Skin: Skin color, texture, turgor normal. No rashes or suspicious lesions. Lymph nodes: Cervical, supraclavicular, axillary and inguinal nodes normal. Neurologic: CNII-XII intact. Normal strength, sensation and reflexes throughout. LABS: There are no on file for this visit. Assessment: Health Maintenance activities are largely up-to-date, an annual flu shot is recommended each fall/winter. Chest wall pain: suspect musculoskeletal due to chronic nature and duration. However, given weight loss will plan on CXR to evaluate ribs as well as lung lesions. Fatigue: suspect multifactorial but will check TSH and CBC, particularly given weight loss Immunization History Administered Date(s) Administered ??? Pneumococcal Conj Vacc PCV13 IM 08/27/2016 ? ? Pneumococcal Polysaccharide Vaccine (PPSV23) =>2YO SQ/IM 08/10/2008 ??? Shingles (Herpes Zoster) SQ 03/08/2011 ? ? Tdap Vaccine =>7YO IM 08/27/2013 Advance Directive status: not on file in the medical record. The patient is encouraged to complete/update and/or send us a copy of his Advance Directives to included in the [facility] medical record. Labs are normal. Health habits are good though patient is encouraged to exercise more. The patient does not have any significant impairment of vision, hearing, gait or cognitive capacities. He lives in a safe home environment and is at low risk for falls. Plan: Recommendations: Health Maintenance Topic Date Due ??? ADVANCE DIRECTIVE 1966 ??? ABDOMINAL AORTIC ANEURYSM (AAA SCREEN) 2013 ??? HEPATITIS C SCREEN 08/03/2014 ??? FALL RISK SCREENING 08/27/2017 ??? BEHAVIORAL HEALTH SCREEN 08/27/2017 ??? PNEUMOCOCCAL (ADULT ) IMMUNIZATION 65+ (2 of 2 - PPSV23) 08/27/2017 ??? PREVENTIVE CARE VISIT 08/27/2018 ??? COLON CANCER SCREENING COLONOSCOPY 09/16/2018 ??? LIPID PROFILE SCREENING (CHOLESTEROL) 08/21/2021 ??? TETANUS (ADULT) IMMUNIZATION 08/27/2023 ??? PERTUSSIS (ADULT) IMMUNIZATION Completed ??? SHINGLES (ADULT) IMMUNIZATION Completed ??? INFLUENZA IMMUNIZATION Excluded - Regular eye exams to check visual acuity, screen for glaucoma and other eye problems. - Avoid smoking or other tobacco products such as chewing tobacco and snuff. - Alcohol to be used only in moderation, preferably not on a daily basis. - Wearing seat belts. This has been shown in many studies to prevent injuries and fatalities in auto accidents. This is not a minor issue, as trauma is the leading cause of and disability in people under the age of 40. - Wearing helmets. Helmet use when riding a bike, skiing , snowmobiling, etc. is critical to preventing head injury. - Healthy eating. This means eating a [...] Exam: Luis was seen today for annual exam, shoulder pain and hypertension. Diagnoses and all orders for this visit: Rib pain - CHEST PA AND LATERAL Need for vaccination - Pneumococcal conjugate vaccine 13-valent IM Fatigue, unspecified type - Hemagram; Future - Thyroid [place]; Future F/u 1 year or sooner prn Patient Education Provided: on the various medical [...] with speech recognition software or keyboard database programmer analyst techniques. Minor irregularities or keyboarding misprints may be present documented in this encounter Plan of Treatment Not on file documented as of this encounter Goals Goal Patient Goal Type Associated Problems Recent Progress Patient-Stated? Author LDL < 100 Result Component Hyperlipidemia 113( 9 9:29 EDT) Colleen Gracia documented as of this encounter Procedures Procedure Name Priority Date/Time Associated Diagnosis Comments CHEST PA AND LATERAL Routine 09/03/2016 9:51 EST Rib pain documented in this encounter Results * CHEST PA AND LATERAL (09/03/2016 9:51 EST) Anatomical Region Laterality Modality Other 09/03/2016 9:51 EST 09/03/2016 10:47 EST Narrative 09/03/2016 10:47 EST CHEST PA AND LATERAL ??09/03/2016 9:51 AM Clinical History/Comments: R07.24-[id number]; CHEST PAIN, 65yo man with rib pain COMPARISON: June 09, 2009. TECHNIQUE: Two views of the chest were performed using dual energy technique with bone and soft tissue reconstruction. FINDINGS: Soft tissues: ??Normal. Bones: Partial visualized known deformity of the left humeral head. Cardiac and mediastinal contours:Normal. Lungs: Pulmonary vascularity is normal. Bandlike opacity in the left lower lung likely reflects an area of subsegmental atelectasis. The lungs are otherwise clear. ?? Pleura/diaphragms: No significant abnormality. An area of pleural thickening in the left lung apex appears unchanged. IMPRESSION: 1. No acute cardiopulmonary abnormality. ?? I have personally reviewed the images and the above interpretation and agree with the findings. Procedure Note Candido Guillen MD - 09/03/2016 CHEST PA AND LATERAL 09/03/2016 9:51 AM Clinical History/Comments: R07.17-[id number]; CHEST PAIN, 65yo man with rib pain COMPARISON: June 09, 2009. TECHNIQUE: Two views of the chest were performed using dual energy technique with bone and soft tissue reconstruction. FINDINGS: Soft tissues: Normal. Bones: Partial visualized known deformity of the left humeral head. Cardiac and mediastinal contours:Normal. Lungs: Pulmonary vascularity is normal. Bandlike opacity in the left lower lung likely reflects an area of subsegmental atelectasis. The lungs are otherwise clear. Pleura/diaphragms: No significant abnormality. An area of pleural thickening in the left lung apex appears unchanged. IMPRESSION: 1. No acute cardiopulmonary abnormality. I have personally reviewed the images and the above interpretation and agree with the findings. Ya Yee MD IMG DIAGNOSTIC IM AGING ORDERABLES * THYROID CASCADE (09/03/2016 9:20 EST) Pathologist [facility] TSH 1.43 0.55 - 4.78 uIU/ml 09/03/2016 11:45 EST [facility] Comment: TSH cascade is not recommended for patients in which pituitary or hypothalamic disorders are suspected. Blood specimen (specimen) BLOOD SPECIMEN / Unknown 09/03/2016 9:20 EST 09/03/2016 10:09 EST Ya Yee MD CHEMISTRY & BLOOD GAS ORDERABLES [facility] [address] [place] [address] * HEMAGRAM (09/03/2016 9:20 EST) WBC 4.90 4.0 - 10.4 K/cmm 09/03/2016 10:38 [facility] RBC 4.90 4.36 - 5.78 M/cmm 09/03/2016 10:38 [facility] Hemoglobin 15.9 13.8 - 17.3 gm/dl 09/03/2016 10:38 [facility] HCT 44.8 39.5 - 50.2 % 09/03/2016 10:38 [facility] MCV 91 81 - 95 fl 09/03/2016 10:38 [facility] MCH 32.4 27.6 - 33.0 pg 09/03/2016 10:38 [facility] MCHC 35.5 32.8 - 36.4 gm/dl 09/03/2016 10:38 [facility] RDW-CV 12.4 11.8 - 14.1 % 09/03/2016 10:38 [facility] RDW-SD 41.1 36.5 - 45.9 fl 09/03/2016 10:38 [facility] PLT 279 141 - 377 K/cmm 09/03/2016 10:38 [facility] MPV 10.9 9.5 - 12.7 fl 09/03/2016 10:38 [facility] Blood specimen (specimen) BLOOD SPECIMEN / Unknown 09/03/2016 9:20 EST 09/03/2016 10:09 EST Ya Yee MD HEMATOLOGY & PF4 ORDERABLES [facility] [address] [place] [address] documented in this encounter Visit Diagnoses Diagnosis Rib pain- Primary Chest pain, unspecified Need for vaccination Need for prophylactic vaccination and inoculation against unspecified single disease Fatigue, unspecified type documented in this encounter Orders Immunization/Injection Count Last Ordered Date First Ordered Date PNEUMOCOCCAL CONJ VACC PCV13 IM 1 7 documented in this encounter Care Teams Overnight Associate Relationship Specialty Start Date End Date Ya Yee MD [address] [place] [address] [phone] PCP - General 02/23/16 10/02/21 documented as of this encounter
--- OUTSIDE RECORDS SUMMARY | 2024-03-02 02:25 | XMS_ITS | Encounter Summary ---
Author Organization [facility] Address [address] [place] [address] Care Team Providers Care Machine Egg Washer Name Role Phone Ya Yee MD Primary Care Provider [phone] Reason for Visit * Reason Onset Date Comments Cough 05/23/2017 Encounter Details Date Type Department Care Team (Late st Contact Info) Description 05/23/2017 Telephone [facility] Adult Primary Care - [address] [phone] Ya Yee MD [address] [place] [phone] Cough Social History Tobacco Use Types Packs/Day Years [...] No 03/26/2017 documented as of this encounter Ordered Prescriptions Prescription Sig Dispensed Refills Start Date End Da te azithromycin (ZITHROMAX) 250 mg tablet Take 2 tablets (500 mg) on Day 1, followed by 1 tablet (250 mg) once daily on Days 2 through 5. 6 Tab 05/23/2017 10/07/2017 documented in this encounter Miscellaneous Notes * Telephone Encounter - Christine Camara RN - 05/23/2017 1654 EDT Informed Luis that Dr Mccabe has ordered a Zpac and it has been sent to [facility] in [place]. * Telephone Encounter - Milena Mccabe MD - 05/23/2017 1623 EDT OK. Prescription for a z-pack has been sent to his pharmacy. Please let him know. * Telephone Encounter - Savannah Atkins - 05/23/2017 0914 EDT Reason for Call: Cough Summary/Symptoms: Patient seen earlier this week for URI. States cough and sinus symptoms have gotten worse. Pharmacy is [facility] on [address] Savannah Atkins 05/23/2017 9:15 documented in this encounter Plan of Treatment Not on file documented as of this encounter Goals Goal Patient Goal Type Associated Problems Recent Progress Patient-Stated? Author LDL < 100 Result Component Hyperlipidemia 113( 9 9:29 EDT) Colleen Gracia documented as of this encounter Visit Diagnoses Not on filedocumented in this encounter Care Teams Machine Egg Washer Relationship Specialty Start Date End Date Ya Yee MD [address] [place] [phone] PCP - General 02/23/16 10/02/21 documented as of this encounter
--- OUTSIDE RECORDS SUMMARY | 2024-03-02 02:25 | XMS_ITS | Encounter Summary ---
Author Organization [facility] Address [address] [place] [address] Care Team Providers Care Production Line Welder Name Role Phone Ya Yee MD Primary Care Provider [phone] Reason for Referral * Surgery (Routine/Next Available) - Closed Specialty Diagnoses / Procedures Referred By Francisco mcdonald Referred To Contact Diagnoses Mucous cyst of digit of right hand Procedures FL EXCIS TENDON SHEATH LESION, HAND/FINGER Jose Manuel Saha MD [address] [place] [address] Referral ID Status Reason Start Date Expiration Date V isits Requested Visits Authorized [id number] Closed Specialty Services Required 03/07/2018 1 1 Question Answer Laterality: Right Location of Procedure: [facility] Anesthesia: Local Estimated Length of Procedure: 20 min Reason for Request: right small finger mucous cyst CPT Code: 80599 Post-op Appointment (Days): 8 First post-op appointment with: [facility] Comments Need Assist? No Smoking status: Never Smoker Comment: Quit as a teenager Diabetic: No Procedure: right small finger mucous cyst excision Perioperative Antibiotics: No Minor procedures Reason for Visit * Reason Comments Cyst right 5th finger * Consult, Test and Treat (Routine) - Closed Specialty Diagnoses / Procedures Referred By Francisco mcdonald Referred To Contact Orthopedic Surgery Diagnoses Mucous cyst of digit of right hand Belle Pop, [facility] [address] [place] [address] Jose Manuel Saha MD [address] [place] [phone] Referral ID Status Reason Start Date Expiration Date Visits Re quested Visits Authorized [id number] Closed 1 1 Encounter Details Date Type Department Care Team (Late st Contact Info) Description 03/07/2018 8:30 EDT Office Visit [facility] Orthopedic Surgery - [facility] [place] [address] [place] [address] Jose Manuel Saha MD [address] [place] [phone] Mucous cyst of digit of right hand (Primary Dx) Social History Tobacco Use Types [...] Taken Comments Blood Pressure - - Pulse - - Temperature - - Respiratory Rate - - Oxygen Saturation - - Inhaled Oxygen Concentration - - Weight 73 kg (161 lb) 03/07/2018 0824 EDT per pt Height 177.8 cm (5' 10) 03/07/2018 0824 EDT per pt Body Mass Index 23.1 03/07/2018 0824 EDT documented in this encounter [...] as of this encounter Progress Notes * Jose Manuel aSha MD - 03/07/2018 0830 EDT The patient presents with a cyst involving his Right small finger. The patient's pain is rated as 3- 6/10 and does not radiate. Symptom onset was gradual approximately 1+ month(s) ago due to unknownreasons. Symptoms are associated with tenderness to touch. REVIEW OF SYSTEMS: Yes No Yes No Fever/Chills x Joint pain x Fatigue x Muscle pain x Night sweats x Morning stiffness x Weight change x If yes, duration Gain or loss? Numbness/tingling x Headaches x If yes, where? Dizziness x Muscle weakness x Chest pain x Excessive thirst x Shortness of breath x Change in mood x Cough x Nervous or anxious x Nausea/vomiting x Sad or depressed x Abdomnial pains/cramps x Excessive bruising x Heartburn/Reflux x Urinary Changes x Rash x Balance Issues x The patient is a 67-year-old right-hand dominant man who presents today with a mucous cyst of his right small finger. The mass has been present for about a month but has popped. He rates his pain associated with this mass is a 3-6 out of 10. He notes no radiation of the pain. He denies any injury to his finger and did not have any pain at his finger prior to the appearance of the cyst. The past medical, family and social history have been reviewed in the patient chart. OBJECTIVE: Ht 177.8 cm (70) Comment: per pt Wt 73 kg (161 lb) Comment: per pt BMI 23.1 kg/m2 Psych: He is alert and oriented x 3 with normal affect. Constitutional: He is well-developed and in no significant distress. Eyes: Sclerae clear. Heart: Regular rate and rhythm Resp: Breathing is regular and nonlabored without audible wheezing. Musculoskeletal: Right hand: Tenderness over the small finger at the dorsum of the DIP joint and distal to the jointwhere the patient has a mucous cyst present. The cyst measures about 5 mm in diameter. Digital range of motion is full including at the small finger. He has good capillary refill throughout and has normal sensation to light touch throughout the hand. ASSESSMENT/PLAN: Encounter Diagnosis Name Primary? Mucous cyst of digit of right hand Yes The patient has a mucous cyst of his right small finger and would like to have it removed. Given the fact that the cyst has ruptured, I think that surgical intervention makes sense and the patient iscomfortable doing the surgery under local anesthetic over the [facility] so that we havecautery available. SURGICAL RISKS AND BENEFITS: The patient understands that the risks and complications of a surgicalapproach include, but are not limited to: Infection, deep venous thrombosis, pulmonary embolism, and , stiffness, nerve injury, anesthetic complications, blood loss, failure to relieve the pain,and allergic reactions. documented in this encounter Plan of Treatment Scheduled Referrals Name Type Priority Associated Diagnoses Orde r Schedule AMB CONS/FOLLOW UP SURGERY SCHED ORD Outpatient Referral Routine Mucous Cyst Of Digit Of Right Hand Ordered: 03/07/2018 documented as of this encounter Goals Goal Patient Goal Type Associated Problems Recent Progress Patient-Stated? Author LDL < 100 Result Component Hyperlipidemia 113( 9 9:29 EDT) Colleen Gracia documented as of this encounter Visit Diagnoses Diagnosis Mucous cyst of digit of right hand- Primary documented in this encounter Care Teams Production Line Welder Relationship Specialty Start Date End Date Ya Yee MD [address] [place] [phone] PCP - General 02/23/16 10/02/21 documented as of this encounter
--- OUTSIDE RECORDS SUMMARY | 2024-03-02 02:25 | XMS_ITS | Encounter Summary ---
Author Organization [facility] Address [address] [place] [address] Care Team Providers Care Starch And Prosize Mixer Name Role Phone Ya Yee MD Primary Care Provider [phone] Reason for Visit * Reason Comments Follow-up Encounter Details Date Type Department Care Team (Late st Contact Info) Description 09/26/2016 11:00 EST Office Visit [facility] ENT- [address] [phone] Chetna Noble MD [address] [place] [address], [address] [place] [phone] Bilateral impacted cerumen (Primary Dx) Discharge Disposition: Auto Discharge Social History Tobacco [...] 08/27/2016 documented as of this encounter Discharge Disposition Disposition Code Departure Means Destination Auto Discharge documented in this encounter Progress Notes * Chetna Noble MD - 09/26/2016 1247 EST ENT Cerumenectomy Indications for Procedure: Obstructive copious cerumen that cannot be removed safely without magnification and multiple instruments. Careful examination of the ear and removal of cerumen was done on both ears using the operating microscope and microinstruments/suction. The patient tolerated this procedure well. Complications: None Findings: Ears - canals and TMs wnl F/u in 3 mos documented in this encounter Plan of Treatment Not on file documented as of this encounter Goals Goal Patient Goal Type Associated Problems Recent Progress Patient-Stated? Author LDL < 100 Result Component Hyperlipidemia 113( 9 9:29 EDT) Colleen Gracia documented as of this encounter Visit Diagnoses Diagnosis Bilateral impacted cerumen- Primary Impacted cerumen documented in this encounter Care Teams Starch And Prosize Mixer Relationship Specialty Start Date End Date Ya Yee MD [address] [place] [phone] PCP - General 02/23/16 10/02/21 documented as of this encounter
--- OUTSIDE RECORDS SUMMARY | 2024-03-02 02:25 | XMS_ITS | Encounter Summary ---
Author Organization [facility] Address [address] [place] [address] Care Team Providers Care Claims Auditor Name Role Phone Ya Yee MD Primary Care Provider [phone] [phone] Reason for Visit * Reason Comments Annual Exam Encounter Details Date Type Department Care Team (Late st Contact Info) Description 04/23/2018 8:15 EDT Office Visit [facility] Adult Primary Care - [address] [phone] Ya Yee MD [address] [place] [address] Routine health maintenance (Primary Dx); Need for pneumococcal vaccination; Hyperlipidemia, unspecified hyperlipidemia type; Acute left flank pain; Encounter for hepatitis C screening test for low risk patient; Prostate cancer screening Social History Tobacco Use Types Packs/Day Years [...] Sign Reading Time Taken Comments Blood Pressure 118/70 04/23/2018 0811 EDT Pulse 72 04/23/2018 0811 EDT Temperature 36.3 ??C (97.3 ??F) 04/23/2018 0811 EDT Respiratory Rate 16 04/23/2018 0811 EDT Oxygen Saturation - - Inhaled Oxygen Concentration - - Weight 72.6 kg (160 lb) 04/23/2018 0811 EDT Height 172 cm (5' 7.72) 04/23/2018 0811 EDT Body Mass Index 24.53 04/23/2018 0811 EDT documented in this encounter [...] Progress Notes * Ya Yee MD - 04/23/2018 0815 EDT Patient ID: Luis Clayton Chief Complaint: Annual Exam Patient Profile: 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 He is and lives with his . Current exercise: walking. Current diet: healthy diet in general. Stress issues are: none Functional or impairment concerns are: none. He has normal activities of daily living. His home environment is safe. He is at low risk for falling. The healthcare team involved in caring for this patient include the following providers: n/a History of present Illness (HPI): Mr. Ramirez presents for annual exam. He is doing well. He did struggle with a month or so of intermittent abdominal pain this spring. Was initially treated for diverticulitis. Continued to have painand was re-evaluated. Renal US did show non-obstructing kidney stone. UA was negative. No other imaging done. Pain has resolved. No weight loss, n/v, change in stools. Has some R knee pain when he kneels on it. Specific spot that causes a singing pain. No pain with ambulation. No trauma. No weakness, locking or popping of the joint. No redness, f/c. Health maintenance: due for shingrix Patient Active [...] Mother Alzheimers ??? Heart Disease Father 61 [place] ??? High Blood Pressure Father ??? High Cholesterol Father ??? Heart Disease Paternal Uncle ??? Diabetes Paternal Uncle Current Outpatient Prescriptions: acetaminophen (TYLENOL) 325 mg tablet Take 650 mg by mouth every 4 hours as needed for Pain. Cholecalciferol, Vitamin D3, 400 unit tablet Take 1,000 Units by mouth daily. ibuprofen (MOTRIN) 200 mg tablet Take 200 mg by mouth every 6 hours as needed for Pain. No Known Allergies Social History Substance Use [...] bleeding Genitourinary x No incontinence Musculoskeletal x R knee pain Skin/breast x Neurological x No balance problems or cognitive impairment (Mini-Cog test) Psychiatric x Denies depressed mood, feeling down in the dumps, anxiety Endocrine x Hematologic Lymphatic x Allergic Immunologic x Behavioral Health Screen Summary Interpretation PHQ-2: 0 PHQ-9: SUZETTE-2: SUZETTE-7: SASQ: Never AUDIT-10: SSASQ: Never DAST-10: . Objective: Physical Examination: BP 118/70 Pulse 72 Temp 36.3 ??C (97.3 ??F) (Tympanic) Resp 16 Ht 172 cm (67.72) Wt 72.6kg (160 lb) BMI 24.53 kg/m2 General: Alert, cooperative, no distress. Head: Normocephalic, without obvious abnormality. Eyes: Conjunctivae clear. PERRL, EOMs intact. Ears: Normal TMs and external ear canals both ears. Hearing grossly nl. Neck: Supple, symmetrical, trachea midline, no adenopathy, thyroid: no enlargement, tenderness or nodules, no carotid bruit and no JVD.. Lungs: Clear to auscultation bilaterally. Chest wall: No tenderness or deformity. Heart: Regular rate and rhythm, S1, S2 normal, no systolic murmur, no click, rub or gallop. Abdomen: Soft, non-tender. Bowel sounds normal. No masses, No organomegaly, no bruits or evidence for aneurysm. Extremities: Extremities atraumatic, no clubbing, cyanosis or edema Musculoskeletal: No joint swelling, effusion or redness. ROM intact in R knee. Pulses: 2+ and symmetric all extremities. Skin: Skin color, texture, turgor normal. No rashes or suspicious lesions. Neurologic: CNII-XII intact. Normal strength, sensation and reflexes throughout. LABS: Results for orders placed or performed in visit on 04/19/18 LIPID PROFILE (INCLUDES CHOLESTEROL, TRIGLYCERIDES, HDL, LDL) Result Value Ref Range Cholesterol 231 mg/dl Triglycerides 130 mg/dl HDL 64 mg/dl LDL, Calculated 141 mg/dl Chol/HDL Ratio 3.6 Fasting? YES Non HDL Cholesterol 167 mg/dl COMPREHENSIVE METABOLIC PANEL (CMP) Result Value Ref Range Potassium 4.6 3.5 - 5.0 mEq/L Sodium 141 136 - 145 mEq/L Chloride 102 96 - 110 mEq/L CO2 29 22 - 32 mEq/L Total Alkaline Phosphatase 65 38 - 126 U/L Bilirubin, Total 1.2 <1.4 mg/dl AST 28 15 - 46 U/L ALT 45 21 - 72 U/L Albumin 4.4 3.4 - 4.9 g/dl Total Protein 6.8 6.3 - 8.2 g/dl Creatinine 0.79 0.66 - 1.25 mg/dl GFR, Calculated 92 >60 ml/min/1.73m2 BUN 16 10 - 26 mg/dl Calcium 9.2 8.5 - 10.5 mg/dl Calculated Calcium 8.9 8.5 - 10.5 mg/dl Glucose, Serum 91 70 - 100 mg/dl Fasting? YES Assessment: Health Maintenance activities are largely up-to-date, an annual flu shot is recommended each fall/winter. Abdominal pain: possibly related to kidney stone. Has resolved. Labs are wnl. Will monitor Knee pain: suspect nerve irritation. Recommend avoiding kneeling for 1-2 months. If no resolution can consider imaging at that time. Immunization History Administered Date(s) Administered ??? Pneumococcal Conj Vacc PCV13 (PREVNAR-13) IM 08/27/2016 ? ? Pneumococcal Polysaccharide (PPSV23) Vaccine (PNEUMOVAX-23) =>2YO SQ/IM 08/10/2008, 04/23/2018 ? ? Tdap Vaccine =>7YO IM 08/27/2013 ??? Zostavax (Zoster Vaccine, Live) SQ 03/08/2011 Advance Directive status: not on file in the medical record. The patient is encouraged to complete or send us a copy of any changes to his Advance Directives to included in the [facility] electronic medical record. Labs are normal. Health habits are good. The patient does not have any significant impairment of vision, hearing, gait or cognitive capacities. He lives in a safe home environment and is at low risk for falls. His activities of daily living are normal. Plan: Recommendations: Health Maintenance Topic Date Due ??? ADVANCE DIRECTIVE 1968 ??? SHINGLES IMMUNIZATION (2 of 3) 05/03/2011 ??? HEPATITIS C SCREEN 08/03/2014 ??? BEHAVIORAL HEALTH SCREEN 08/27/2017 ??? PNEUMOCOCCAL IMMUNIZATION 65+ (2 of 2 - PPSV23) 08/27/2017 ??? INFLUENZA IMMUNIZATION (ADULT) (1) 05/19/2018 ??? PREVENTIVE CARE VISIT 08/27/2018 ??? COLON CANCER SCREENING COLONOSCOPY 09/16/2018 ??? FALL RISK SCREENING 12/19/2018 ??? LIPID PROFILE SCREENING (CHOLESTEROL) 04/19/2023 ??? TETANUS (ADULT) IMMUNIZATION 08/27/2023 ??? PERTUSSIS (ADULT) IMMUNIZATION Completed ??? ABDOMINAL AORTIC ANEURYSM (AAA SCREEN) Excluded - Regular eye exams to check [...] orders for this visit: Routine health maintenance Need for pneumococcal vaccination - Pneumococcal Polysaccharide (PPSV23) Vaccine (PNEUMOVAX-23) 23-valent greater than or equal to 2yo subcutaneous/IM Hyperlipidemia, unspecified hyperlipidemia type - monitor Acute left flank pain - resolved, monitor F/u 6 months labs prior (ordered) Today's [id number] visit time was 45 minutes with 30 [...] prepared with speech recognition software or keyboard sap data analyst techniques. Minor irregularities or keyboarding [...] 9:01 EST) Cholesterol 251 mg/dl 10/21/2018 11:[address] [facility] Comment: Desirable:<200 Borderline High:200-239 High:>rb=985 Triglycerides 111 mg/dl 10/21/2018 11:[address] [facility] Comment: Normal:<150 Borderline High:150-199 High:200-499 Very High:>me=372 HDL 63 mg/dl 10/21/2018 11:[address] [facility] Comment: Low:<40 Normal:40-60 Desirable: >60 LDL, Calculated 166 mg/dl 9 11:[address] [facility] Comment: Optimal:<100 Near Optimal:100-129 Borderline High:130-159 High:160-189 Very High:>dt=261 Chol/HDL Ratio 4.0 10/21/2018 11:[address] [facility] Fasting? YES 10/21/2018 8:[address] [facility] Non HDL Cholesterol 188 mg/dl 10/21/2018 11:[address] [facility] Comment: Desirable:<130 Borderline:130-159 High: 160-189 Very High: >jh=765 Blood specimen (specimen) BLOOD SPECIMEN / Unknown 10/21/2018 9:01 EST 10/21/2018 10:24 EST aY Yee MD CHEMISTRY & BLOOD GAS ORDERABLES [facility] [address] [place] [address] * PSA SCREEN (10/21/2018 9:01 EST) PSA 0.4 0 - 4.5 ng/ml 10/21/2018 12:[address] [facility] Comment: Serum PSA concentration should not be interpreted as absolute evidence for the presence or absence of malignant disease. Assayed utilizing [employer] ([employer]) chemiluminescent technology. ??Values obtained by using different assay methods cannot be used interchangeably. Blood specimen (specimen) BLOOD SPECIMEN / Unknown 10/21/2018 9:01 EST 10/21/2018 10:24 EST Ya Yee MD CHEMISTRY & BLOOD GAS ORDERABLES Performing Organization Address [facility] Co de Phone Number [facility] [address] [place] [address] * HEPATITIS C AB W REFLEX TO HCV RNA BY PCR (10/21/2018 9:01 EST) Hep C Ab w Rfx PCR HCSCR2 Negative Negative 10/22/2018 9:56 EST [facility] Blood specimen (specimen) BLOOD SPECIMEN / Unknown 10/21/2018 9:01 EST 10/21/2018 10:24 EST Ya Yee MD CHEMISTRY & BLOOD GAS ORDERABLES Performing Organization Address [place]/[facility] Co de Phone Number [facility] [address] [place] [address] documented in this encounter Visit Diagnoses Diagnosis Routine health maintenance- Primary Routine general medical examination at a health care facility Need for pneumococcal vaccination Need for prophylactic vaccination against streptococcus pneumoniae (pneumococcus) Hyperlipidemia, unspecified hyperlipidemia type Acute left flank pain Abdominal pain, unspecified site Encounter for hepatitis C screening test for low risk patient Prostate cancer screening Special screening for malignant neoplasm of prostate documented in this encounter Orders Immunization/Injection Count Last Ordered Date First Ordered Date PNEUMOCOCCAL POLYSACCHARIDE (PPSV23) VACCINE (PNEUMOVAX-23) 23-VALENT =>2YO SQ/IM 1 04/23/2018 documented in this encounter Care Teams Claims Auditor Relationship Specialty Start Date End Date Ya Yee MD [address] [place] [phone] PCP - General 02/23/16 10/02/21 documented as of this encounter
--- OUTSIDE RECORDS SUMMARY | 2024-03-02 02:25 | XMS_ITS | Encounter Summary ---
Author Organization [facility] Address [address] [place] [address] Care Team Providers Care Health Safety Engineer Name Role Phone Ya Yee MD Primary Care Provider [phone] [phone] Reason for Visit * Reason Comments Sinus Problems since Sep 21 - had gotten slighly better but over last couple of days chest tightness and sinus pressure Cough had dry cough, now i s coughing up phlegm Encounter Details Date Type Department Care Team (Late st Contact Info) Description 10/07/2017 15:30 EST Office Visit [facility] Adult Primary Care - [address] [address] Felipa Winchester MD [address] [place] [phone] Acute maxillary sinusitis, recurrence not specified (Primary Dx); Cough Social History Tobacco Use Types Packs/Day [...] Sign Reading Time Taken Comments Blood Pressure 122/76 10/07/2017 1533 EST Pulse 64 10/07/2017 1533 EST Temperature 36 ??C (96.8 ??F) 10/07/2017 1533 EST Respiratory Rate - - Oxygen Saturation - - Inhaled Oxygen Concentration - - Weight 73 kg (161 lb) 10/07/2017 1533 EST per pt at home with no clothes Height - - Body Mass Index 23.1 [...] No 08/07/2017 documented as of this encounter Patient Instructions * Patient Instructions* Felipa Winchester MD - 10/07/2017 15:30 EST flonase nasal spray twice daily Continue sudafed For the future, try a sinus rinse like Timoteo Med or Netipot augmentin twice daily for ten days. documented in this encounter Ordered Prescriptions Prescription Sig Dispensed Refills Start Date End Da te fluticasone (FLONASE) 50 mcg/actuation nasal spray Instill 1 [place] into both nostrils 2 times daily. 1 Bottle 2 10/07/2017 03/03/2018 amoxicillin-clavulanate (AUGMENTIN) 875-125 mg per tablet Take 1 Tab by mouth 2 times daily. 20 Tab 10/07/2017 03/03/2018 documented in this encounter Progress Notes * Felipa Winchester MD - 10/07/2017 1530 EST Patient ID: Luis Clayton is 66 y.o. y.o male Patient Active Problem List Diagnosis ??? Sensorineural hearing loss ??? Benign neoplasm of eyelid including canthus ??? Proteinuria ??? Benign essential hypertension ??? Degenerative joint disease involving multiple joints ??? Hyperlipidemia Chief Complaint: Sinus Problems (since Sep 21 - had gotten slighly better but over last couple of days chest tightness and sinus pressure) and Cough (had dry cough, now is coughing up phlegm) Subjective: Luis Clayton is a 66-year-old man normally followed by Dr. Yee. In early September, he developed a fever and chills with a temperature 102 and intense body aches. He did feel better after a few days and eventually returned to work. However he has had a lingering dry cough and bilateral sinus discomfort since then. 3 days ago, his cough became productive of mucus and he developed chest tightness. The chest tightness seems to be associated with the cough and he does not experience increased or worsening symptomswith physical activity. Sinus symptoms became more prominent. He has postnasal drip, nasal congestion, and nasal discharge in addition to the sinus pressure. He is a nonsmoker. He is no history of asthma. He has been using Sudafed, Tylenol, and ibuprofen Current Outpatient Prescriptions: acetaminophen (TYLENOL) 325 mg tablet Take 650 mg by mouth every 4 hours as needed for Pain. amoxicillin-clavulanate (AUGMENTIN) 875-125 mg per tablet Take 1 Tab by mouth 2 times daily. ERGOCALCIFEROL, VITAMIN D2, (VITAMIN D ORAL) Take by mouth daily. fluticasone (FLONASE) 50 mcg/actuation nasal spray Instill 1 [place] into both nostrils 2 times daily. ibuprofen (MOTRIN) 200 mg tablet Take 200 mg by mouth every 6 hours as needed for Pain. meclizine (ANTIVERT) 12.5 mg tablet Take 1-2 Tabs by mouth 3 times daily as needed for Dizziness. (Patient not taking: Reported on 08/07/2017) No Known Allergies System Negative Positive Comment Constitutional No fever, chills, or night sweats Eyes X ENT No sore throat now, no ear pain, bilateral sinus pressure, right greater than left, nasal congestion, nasal discharge, post-nasal drip Pulmonary Productive cough, shortness of breath Cardiovascular Chest tightness Gastrointestinal X Musculoskeletal Mild body aches Neurologic Headache on top of head, no dizziness Hematologic Dermatologic X Other Objective: BP 122/76 Pulse 64 Temp 36 ??C (96.8 ??F) (Tympanic) Wt 73 kg (161 lb) Comment: per pt at home with no clothes BMI 23.1 kg/m2 Gen.: He does not appear to be acutely ill although he coughs frequently. HEENT: Conjunctivae are clear. Nasal mucosa is normal. Both tympanic membranes were difficult to visualize due to cerumen. Mucous membranes moist. Pharynx is without erythema or exudate. Lungs: Clear in the posterior lung saenz. No wheezing with forced expiration. Cardiac: Regular rhythm with no murmur or gallop Skin: Warm and dry Extremities: No cyanosis or edema LABS: Results for orders placed or performed [...] TSH 1.43 0.55 - 4.78 uIU/ml Assessment: 66-year-old man with greater than 10 days of sinus symptoms. We discussed treatment for viral sinusitis for future reference which includes a nasal steroid inhaler, an oral decongestant, and ibuprofen with a sinus rinse. Since he has had symptoms for greater than 10 days, we will cover for bacterial sinusitis with Augmentin if he does not respond to the nasal steroid inhaler. The cough could be due to postnasal drip or a viral bronchitis. His lungs are clear today on exam. Plan: As above Today's face to face visit time was 20 minutes and 5 minutes of that time was spent in counseling and/or coordination of care for the problems listed above. documented in this encounter Plan of Treatment Not on file documented as of this encounter Goals Goal Patient Goal Type Associated Problems Recent Progress Patient-Stated? Author LDL < 100 Result Component Hyperlipidemia 113( 9 9:29 EDT) Colleen Gracia documented as of this encounter Visit Diagnoses Diagnosis Acute maxillary sinusitis, recurrence not specified- Primary Cough documented in this encounter Discontinued Medications Medication Sig Discontinue Reason Start Date End Da te azithromycin (ZITHROMAX) 250 mg tablet Take 2 tablets (500 mg) on Day 1, followed by 1 tablet (250 mg) once daily on Days 2 through 5. 05/23/2017 10/07/2017 documented as of this encounter Historical Medications * This list may reflect changes made after this encounter. Medication Sig Dispensed Refills Start Date End Date ibuprofen (MOTRIN) 200 mg tablet Take 200 mg by mouth every 6 hours as needed for Pain. 11/03/2018 acetaminophen (TYLENOL) 325 mg tablet Take 650 mg by mouth every 4 hours as needed for Pain. 11/03/2018 added in this encounter Care Teams Health Safety Engineer Relationship Specialty Start Date End Date Ya Yee MD [address] [place] [phone] PCP - General 02/23/16 10/02/21 documented as of this encounter
--- OUTSIDE RECORDS SUMMARY | 2024-03-02 02:25 | XMS_ITS | Encounter Summary ---
Author Organization [facility] Address [address] [place] [address] Care Team Providers Care Revenue Research Analyst Name Role Phone Ya Yee MD Primary Care Provider [phone] Encounter Details Date Type Department Care Team (Late st Contact Info) Description 04/19/2018 9:07 EDT - 04/19/2018 23:59 EDT Hospital Encounter [facility] [address] [place] [phone] Ya Yee MD [address] [place] [phone] Discharge Disposition: Home or Self Care [...] E78.5 Hyperlipidemia, unspecified-E78.5[ICD-10-CM] I10 Essential (primary) hypertension-I10[ICD-10-CM] Z11.59 Encounter for screening for other viral [...] Procedure Name Priority Date/Time Associated Diagnosis Comments BILIRUBIN DIRECT/INDIRECT Routine 04/19/2018 9:20 EDT documented in this encounter Results * BILIRUBIN DIRECT/INDIRECT (04/19/2018 9:20 EDT) Conjugated Bilirubin 0.0 0.0 - 0.3 mg/dl 04/19/2018 11:03 EDT [facility] Unconjugated Bilirubin 1.1 0.0 - 1.1 mg/dl 04/19/2018 11:03 EDT [facility] BLOOD SPECIMEN / Unknown 04/19/2018 9:20 EDT 04/19/2018 10:34 EDT Ya Yee MD CHEMISTRY & BLOOD GAS ORDERABLES [facility] [address] [place] [address] documented in this encounter Visit Diagnoses Not on filedocumented in this encounter Care Teams Revenue Research Analyst Relationship Specialty Start Date End Date Ya Yee MD [address] [place] [phone] PCP - General 02/23/16 10/02/21 documented as of this encounter
--- OUTSIDE RECORDS SUMMARY | 2024-03-02 02:25 | XMS_ITS | Encounter Summary ---
Author Organization [facility] Address [address] [place] [address] Care Team Providers Care Plastics Supervisor Name Role Phone Ya Yee MD Primary Care Provider [phone] [phone] Encounter Details Date Type Department Care Team (Late st Contact Info) Description 08/21/[address] [facility] [address] [place] [address] Steel Sampler, Outpatient Social History Tobacco Use Types Packs/Day Years [...] No 06/28/2016 documented as of this encounter Plan of Treatment Not on file documented as of this encounter Goals Goal Patient Goal Type Associated Problems Recent Progress Patient-Stated? Author LDL < 100 Result Component Hyperlipidemia 113( 9 9:29 EDT) No Colleen Arora documented as of this encounter Procedures Procedure Name Priority Date/Time Associated Diagnosis Comments LIPID PROFILE (INCLUDES CHOLESTEROL, TRIGLYCERIDES, HDL, LDL) Routine 08/21/2016 9:03 EST COMPREHENSIVE METABOLIC PANEL (CMP) Routine 08/21/2016 9:03 EST documented in this encounter Results * COMPREHENSIVE METABOLIC PANEL (CMP) (08/21/2016 9:03 EST) Potassium 5.0 3.5 - 5.0 mEq/L 08/21/2016 10:29 [facility] Sodium 144 136 - 145 mEq/L 08/21/2016 10:29 [facility] Chloride 103 96 - 110 mEq/L 08/21/2016 10:29 [facility] CO2 28 22 - 32 mEq/L 08/21/2016 10:29 [facility] Comment:Note new reference r megha 06/05/16 Total Alkaline Phosphatase 78 38 - 126 U/L 08/21/2016 10:29 [facility] Bilirubin, Total 0.8 <1.4 mg/dl 08/21/19 17 10:29 [facility] AST 27 15 - 46 U/L 08/21/2016 10:29 [facility] ALT 43 21 - 72 U/L 08/21/2016 10:29 [facility] Albumin 4.4 3.4 - 4.9 g/dl 08/21/2016 10:29 [facility] Total Protein 7.1 6.3 - 8.2 g/dl 08/21/2016 10:29 [facility] Creatinine 0.78 0.66 - 1.25 mg/dl 08/21/2016 10:29 [facility] GFR, Calculated 93 >60 ml/min/1.7 3m2 08/21/2016 10:29 [facility] Comment: eGFR calculated using CKD-EPI equation for non Americans. Multiply eGFR by 1.16 for Americans. BUN 15 10 - 26 mg/dl 08/21/2016 10:29 [facility] Calcium 9.4 8.5 - 10.5 mg/dl 08/21/2016 10:29 [facility] Calculated Calcium 9.1 8.5 - 10.5 mg/dl 08/21/2016 10:29 [facility] Comment: Note new formula for calculation in use 05/23/2016 Glucose, Serum 90 70 - 100 mg/dl 08/21/2016 10:29 [facility] Fasting? YES 08/21/2016 8:59 [facility] Blood specimen (specimen) BLOOD SPECIMEN / Unknown 08/21/2016 9:03 EST 08/21/2016 9:52 EST Ya Yee MD CHEMISTRY & BLOOD GAS ORDERABLES [facility] [address] [place] [address] * LIPID PROFILE (INCLUDES CHOLESTEROL, TRIGLYCERIDES, HDL, LDL) (08/21/2016 9:03 EST) Cholesterol 221 mg/dl 08/21/2016 10:29 [facility] Comment: Desirable:<200 Borderline High:200-239 High:>ym=589 Triglycerides 96 mg/dl 08/21/2016 10:29 [facility] Comment: Normal:<150 Borderline High:150-199 High:200-499 Very High:>gq=456 HDL 54 mg/dl 08/21/2016 10:29 [facility] Comment: Low:<40 Normal:40-60 Desirable: >60 LDL, Calculated 148 mg/dl 7 10:29 [facility] Comment: Optimal:<100 Near Optimal:100-129 Borderline High:130-159 High:160-189 Very High:>on=031 Chol/HDL Ratio 4.1 08/21/2016 10:29 [facility] Fasting? YES 08/21/2016 8:59 [facility] Non HDL Cholesterol 167 mg/dl 08/21/2016 10:29 [facility] Comment: Desirable:<130 Borderline:130-159 High: 160-189 Very High: >jg=528 Blood specimen (specimen) BLOOD SPECIMEN / Unknown 08/21/2016 9:03 EST 08/21/2016 9:52 EST Ya Yee MD CHEMISTRY & BLOOD GAS ORDERABLES [facility] [address] [place] [address] documented in this encounter Visit Diagnoses Not on filedocumented in this encounter Care Teams Plastics Supervisor Relationship Specialty Start Date End Date Ya Yee MD [address] [place] [phone] PCP - General 02/23/16 10/02/21 documented as of this encounter
--- OUTSIDE RECORDS SUMMARY | 2024-03-02 02:25 | XMS_ITS | Encounter Summary ---
Author Organization [facility] Address [address] [place] [address] Care Team Providers Care Financial Planning Advisor Name Role Phone Ya Yee MD Primary Care Provider [phone] [phone] Reason for Visit * Reason Comments Follow-up Encounter Details Date Type Department Care Team (Late st Contact Info) Description 07/03/2018 10:10 EST Office Visit [facility] ENT- [address] [id number] Chetna Noble MD [address] [place] [address], [address] [place] [address] Impacted cerumen of both ears [...] Progress Notes * Chetna Noble MD - 07/03/2018 1010 EST No problems since his last visit. ENT Cerumenectomy Indications for Procedure: Obstructive copious cerumen that cannot be removed safely without magnification and multiple instruments. Careful examination of the ear and removal of cerumen was done on both ears using the operating microscope and microinstruments/suction. The patient tolerated this procedure well. Complications: None Findings: Ears - canals and TMs wnl once cerumen removed documented in this encounter Plan of Treatment Not on file documented as of this encounter Goals Goal Patient Goal Type Associated Problems Recent Progress Patient-Stated? Author LDL < 100 Result Component Hyperlipidemia 113( 9 9:29 EDT) Colleen Gracia documented as of this encounter Visit Diagnoses Diagnosis Impacted cerumen of both ears- Primary Impacted cerumen documented in this encounter Care Teams Financial Planning Advisor Relationship Specialty Start Date End Date Ya Yee MD [address] [place] [phone] PCP - General 02/23/16 10/02/21 documented as of this encounter
--- OUTSIDE RECORDS SUMMARY | 2024-03-02 02:25 | XMS_ITS | Encounter Summary ---
Author Organization [facility] Address [address] [place] [address] Care Team Providers Care Medical Reception Specialist Name Role Phone Ya Yee MD Primary Care Provider [phone] [phone] Reason for Visit * Reason Onset Date Comments Dizziness 01/21/2017 Encounter Details Date Type Department Care Team (Late st Contact Info) Description 01/21/2017 Telephone [facility] Adult Primary Care - [address] [phone] Ya Yee MD [address] [place] [phone] Dizziness Social History Tobacco Use Types Packs/Day Years [...] Telephone Encounter - Ya Yee MD - 01/21/2017 0950 EDT Would recommend that he not return to work until his symptoms have resolved completely. I am happy to provide another note for work (I have pended one through the end of this week). He has another PTappointment tomorrow. Thanks * Telephone Encounter - Viktoria Foote - 01/21/2017 09 EDT Pt seen 01/16 by PCP for vertigo sx Sx are mostly gone per pt - pt is unsure if he can return to work this week He is requesting another letter - would you like to see patient again?? documented in this encounter Plan of Treatment Not on file documented as of this encounter Goals Goal Patient Goal Type Associated Problems Recent Progress Patient-Stated? Author LDL < 100 Result Component Hyperlipidemia 113( 9 9:29 EDT) No Colleen Arora documented as of this encounter Visit Diagnoses Not on filedocumented in this encounter Care Teams Medical Reception Specialist Relationship Specialty Start Date End Date Ya Yee MD [address] [place] [phone] PCP - General 02/23/16 10/02/21 documented as of this encounter
--- OUTSIDE RECORDS SUMMARY | 2024-03-02 02:25 | XMS_ITS | Encounter Summary ---
Author Organization [facility] Address [address] [place] [address] Care Team Providers Care Cloud Software Engineer Name Role Phone Ya Yee MD Primary Care Provider [phone] [phone] Reason for Visit * Reason Onset Date Comments Influenza 09/24/2017 Encounter Details Date Type Department Care Team (Late st Contact Info) Description 09/24/2017 Telephone [facility] Adult Primary Care - [address] [phone] Ya Yee MD [address] [place] [phone] Influenza Social History Tobacco Use Types Packs/Day Years [...] No 08/07/2017 documented as of this encounter Miscellaneous Notes * Telephone Encounter - Anne Miller - 09/25/2017 1126 EST Fax number is [phone] Attn: Salima Letter printed and faxed * Telephone Encounter - Sharee Barr RN - 09/24/2017 1247 EST Luis notified of the message from Dr. Yee; he will call back with the fax number for us to fax this letter to his employer. Aware to call back if symptoms worsen or fail to improve for CXR end of the week if needed (per ). Patient verbalized understanding with no barriers to learning and agrees with plan of care. * Telephone Encounter - Ya Yee MD - 09/24/2017 1238 EST Would recommend that he stay out of work for another day or so (letter written/saved). If pain doesn't resolve towards the end of the week we should get a CXR. Thanks * Telephone Encounter - Rubi Feliz RN - 09/24/2017 1209 EST Rib pain at bottom of ribs on both sides (started on Saturday) is present all the time - aware of pain but not too bad. Pain increases when he is getting up from lying, or turning over in bed and when he coughs. He has been taking Tylenol and ibuprofen. Not certain what this is from or if it is just part of flu that he had. Feels improved overall except for rib pain and cough. Doesn't know if he should go to work tomorrow or not. If he does not go to work tomorrow (3rd day out) he will need a letter from his physician stating he has been sick and is OK to return. * Telephone Encounter - Anne Miller - 09/24/2017 1156 EST Started on Sat with fever, body aches, chills, cough-non productive, DEL CID, stomach issues, no SOB- Pt is feeling a little better, pt is getting a weird pain at bottom of both side of his rib cages- fever has broken Would like to discuss documented in this encounter Plan of Treatment Not on file documented as of this encounter Goals Goal Patient Goal Type Associated Problems Recent Progress Patient-Stated? Author LDL < 100 Result Component Hyperlipidemia 113( 9 9:29 EDT) No Colleen Arora documented as of this encounter Visit Diagnoses Not on filedocumented in this encounter Care Teams Cloud Software Engineer Relationship Specialty Start Date End Date Ya Yee MD [address] [place] [phone] PCP - General 02/23/16 10/02/21 documented as of this encounter
--- OUTSIDE RECORDS SUMMARY | 2024-03-02 02:25 | XMS_ITS | Encounter Summary ---
Author Organization [facility] Address [address] [place] [address] Care Team Providers Care Plastic Worker Name Role Phone Ya Yee MD Primary Care Provider [phone] [phone] Reason for Visit * Reason Onset Date Comments Appointment Related 04/10/2018 Encounter Details Date Type Department Care Team (Late st Contact Info) Description 04/10/2018 Telephone [facility] [place] [facility] Adult Primary Care - [address] [phone] Ya Yee MD [address] [place] [phone] Appointment Related Social History Tobacco Use [...] No 03/10/2018 documented as of this encounter Miscellaneous Notes * Telephone Encounter - Deirdre Saravia - 04/10/2018 1622 EDT Voicemail left for pt on 04/10/18 reminding them of their upcoming appt and fasting lab work documented in this encounter Plan of Treatment Not on file documented as of this encounter Goals Goal Patient Goal Type Associated Problems Recent Progress Patient-Stated? Author LDL < 100 Result Component Hyperlipidemia 113( 9 9:29 EDT) Colleen Gracia documented as of this encounter Visit Diagnoses Not on filedocumented in this encounter Care Teams Plastic Worker Relationship Specialty Start Date End Date Ya Yee MD [address] [place] [phone] PCP - General 02/23/16 10/02/21 documented as of this encounter
--- OUTSIDE RECORDS SUMMARY | 2024-03-02 02:25 | XMS_ITS | Encounter Summary ---
Author Organization [facility] Address [address] [place] [address] Care Team Providers Care Track Patrol Name Role Phone Ya Yee MD Primary Care Provider [phone] [phone] Encounter Details Date Type Department Care Team (Late st Contact Info) Description 02/07/2017 Documentation Visit [facility] Rehabilitation Therapy - Medical Office Building [address] [place] [address] Peter Meraz, PT [address] [facility], [facility], [address] [place] [address] Social History Tobacco Use Types Packs/Day Years [...] as of this encounter Progress Notes * Peter Meraz, PT - 02/07/2017 0952 EDT REHABILITATION THERAPIES [facility] REHABILITATION THERAPY - MEDICAL OFFICE BUILDING [address] [place] [address] Physical Therapy Discontinue/Discharge Note Date: 02/07/2017 Reason for Referral: Diagnosis: right BPPV Date of Onset: 01/03/17 Referring Provider: Ya Yee MD Precautions: routine Session #: 0 Date of Initial Eval: 01/18/17 Total Number of Visits: 2 SUBJECTIVE: None OBJECTIVE: Date of Initial Eval: 01/18/17. We are opting to discontinue Mr. Clayton's therapy at this time because, the patient has not returned for scheduled appointment - patient was to call cancel today's appointment if symptoms resolved.He did not call and did not show for today's appointment. Please refer to the last On Hold/Discontinue Note for details. ASSESSMENT: Unable to assess his current status as the patient was not seen for any additional therapy sessions. GOALS: All goals discontinued. PLAN: Discontinue physical therapy. The patient is invited to contact us at any time, should any problems arise, or should his plans for rehabilitation change. PETER MERAZ, PT 02/07/2017 9:52 documented in this encounter Plan of Treatment Not on file documented as of this encounter Goals Goal Patient Goal Type Associated Problems Recent Progress Patient-Stated? Author LDL < 100 Result Component Hyperlipidemia 113( 9 9:29 EDT) Colleen Gracia documented as of this encounter Visit Diagnoses Not on filedocumented in this encounter Care Teams Track Patrol Relationship Specialty Start Date End Date Ya Yee MD [address] [place] [phone] PCP - General 02/23/16 10/02/21 documented as of this encounter
--- OUTSIDE RECORDS SUMMARY | 2024-03-02 02:26 | XMS_ITS | Encounter Summary ---
Author Organization [facility] Address [address] [place] [address] Care Team Providers Care Reproductive Endocrinologist Name Role Phone Prem Landrum MD Primary Care Provider + [phone] Encounter Details Date Type Department Care Team (Late st Contact Info) Description 01/25/2012 Results Only [facility] Laboratory Services - [facility] ([facility] [address] [place], [place] [address] Manuel Landrum MD [address] [place] [phone] Social History Tobacco Use Types Packs/Day Years Used Date Smoking Tobacco: Former Smokeless Tobacco: Never Comments:Quit as a teenager Alcohol Use Standard Drinks/Week Comments Yes 41.7 (1 standard drink = 0.6 oz pure alcohol) Sex and Gender Information Value Date Recorded Sex Assigned at Not on file Gender Identity Male 10/27/2019 18:25 EDT Sexual Orientation Not on file documented as of this encounter Plan of Treatment Pending Results Name Type Priority Associated Diagnoses Date /Time HOLD PURPLE TOP Lab Routine 2 9:30 EDT documented as of this encounter Procedures Procedure Name Priority Date/Time Associated Diagnosis Comments PSA SCREEN Routine 01/25/2012 9:30 EDT LIPID PROFILE (INCLUDES CHOLESTEROL, TRIGLYCERIDES, HDL, LDL) Routine 01/25/2012 9:30 EDT COMPREHENSIVE METABOLIC PANEL (CMP) Routine 01/25/2012 9:30 EDT documented in this encounter Results * PSA SCREEN (01/25/2012 9:30 EDT) PSA 0.3 0 - 4.5 ng/ml [facility] Comment: Serum PSA concentration should not be interpreted as absolute evidence for the presence or absence of malignant disease. Assayed utilizing Siemens ([employer]) chemiluminescent technology. ??Values obtained by using different assay methods cannot be used interchangeably. 01/25/2012 9:30 EDT 01/25/2012 13:51 EDT Manuel Landrum MD CHEMISTRY & BLOOD GAS ORDERABLES Performing Organization Address [facility] de Phone Number [facility]HEL [facility] [address] [place] [address] * LIPID PROFILE (INCLUDES CHOLESTEROL, TRIGLYCERIDES, HDL, LDL) (01/25/2012 9:30 EDT) Cholesterol 260 mg/dl [facility] Comment: Desirable:<200 Borderline High:200-239 High:>km=397 Triglycerides 223 mg/dl [facility] Comment: Normal:<150 Borderline High:150-199 High:200-499 Very High:>yc=741 HDL 53 mg/dl [facility] Comment: Low:<40 Normal:40-60 Desirable: >60 LDL, Calculated 162 mg/dl KRISTY LEGG[facility] Comment: Optimal:<100 Near Optimal:100-129 Borderline High:130-159 High:160-189 Very High:>pm=805 Chol/HDL Ratio 4.9 SAGRARIO LEGGETT [facility] Fasting? Yes [facility] 01/25/2012 9:30 EDT 01/25/2012 13:51 EDT Manuel Landrum MD CHEMISTRY & BLOOD GAS ORDERABLES Performing Organization Address [facility] de Phone Number RACHEL LEGGETT [facility] [address] [place] [address] * COMPREHENSIVE METABOLIC PANEL (CMP) (01/25/2012 9:30 EDT) Potassium 4.5 3.5 - 5.0 mEq/L [facility] Sodium 139 136 - 145 mEq/L [facility] Chloride 101 96 - 110 mEq/L [facility] CO2 28 24 - 32 mEq/L [facility] Total Alkaline Phosphatase 82 38 - 126 U/L [facility] Bilirubin, Total 0.7 0.2 - 1.3 mg/dl [facility] AST 37 15 - 46 U/L [facility] ALT 56 21 - 72 U/L [facility] Albumin 4.6 3.4 - 4.9 g/dl [facility] Total Protein 7.4 6.5 - 8.3 g/dl [facility] Creatinine 0.73 0.66 - 1.25 mg/dl [facility] GFR, Calculated >60 >60 ml/min/1.7 3m2 [facility] BUN 14 10 - 26 mg/dl [facility] Calcium 9.1 8.5 - 10.5 mg/dl [facility] Calculated Calcium 8.9 8.5 - 10.5 mg/dl [facility] Glucose, Serum 85 70 - 100 mg/dl [facility] Fasting? Yes [facility] 01/25/2012 9:30 EDT 01/25/2012 13:51 EDT Manuel Landrum MD CHEMISTRY & BLOOD GAS ORDERABLES Performing Organization Address City/State/[facility] Co de Phone Number [facility] [address] [place] [address] documented in this encounter Visit Diagnoses Not on filedocumented in this encounter Care Teams Reproductive Endocrinologist Relationship Specialty Start Date End Date Prem Landrum MD [address] [phone] PCP - General 04/18/11 12/29/13 documented as of this encounter
--- OUTSIDE RECORDS SUMMARY | 2024-03-02 02:26 | XMS_ITS | Encounter Summary ---
Author Organization [facility] Address [address] [place] [address] Care Team Providers Care Powerhouse Electrician Apprentice Name Role Phone Prem Landrum MD Primary Care Provider [phone] [phone] Encounter Details Date Type Department Care Team (Latest Contact Info) Description 12/15/2013 10:23 EDT - 12/15/2013 23:59 EDT Hospital Encounter [address] [address] Manuel Landrum MD [address] [place] [phone] Discharge Disposition: Auto Discharge Social History Tobacco Use Types Packs/Day Years Used Date Smoking Tobacco: Former Smokeless Tobacco: Never Comments:Quit as a teenager Alcohol Use Standard Drinks/Week Comments Yes 5 (1 standard drink = 0.6 oz pur e alcohol) Sex and Gender Information Value Date Recorded Sex Assigned at Not on file Gender Identity Male 10/27/2019 18:25 EDT Sexual Orientation Not on file documented as of this encounter Discharge Diagnoses Diagnosis 592.0 CALCULUS OF KIDNEY[ICD-9-CM] documented in this encounter Medications at Time of Discharge Medication Sig Dispensed Refills Start Date End Date polyethylene glycol (GOLYTELY) 236-22.74-6.74 gram suspensionIndications :Special screening for malignant neoplasms, colon Follow instructions on 'colonoscopy preparation instructions' sheet. 1 Bottle 0 09/01/2013 12/30/2013 documented as of this encounter Discharge Disposition Disposition Code Departure Means Destination Auto Discharge Home documented in this encounter Plan of Treatment Not on file documented as of this encounter Procedures Procedure Name Priority Date/Time Associated Diagnosis Comments CT RENAL COLIC WO CONTRAST 12/24/2013 15:45 EDT documented in this encounter Results * CT RENAL COLIC (12/24/2013 15:45 EDT) Anatomical Region Laterality Modality Other 12/24/2013 15:4 5 EDT 12/25/2013 14:28 EDT Narrative 12/25/2013 14:[address] RENAL COLIC ??12/24/2013 3:45 PM Signs and Symptoms/Comments: ??RUQ pain. *previous ABD u/s done at [facility]* . Technique: CT images of the abdomen and pelvis were obtained without the use of IV, po, or rectal contrast. Comparisons: ?? Right upper quadrant ultrasound-December 15, 2013 Findings: Visualized portions of the lung bases are unremarkable. The partially imaged unenhanced liver and spleen are unremarkable. The undistended gallbladder is unremarkable. No cholelithiasis, intrahepatic or extrahepatic biliary dilatation is noted. The bilateral kidneys and adrenals are unremarkable. No nephrolithiasis or hydronephrosis visualized. No obstructions noted in the ureters. The partially collapsed urinary bladder is likewise unremarkable. The pancreas, stomach, small bowel, and appendix are unremarkable. There is diverticulosis without diverticulitis. There is no abdominal or pelvic free fluid or free air. Minimal atherosclerotic calcifications noted in the aorta. No abdominal aortic aneurysm. The anterior abdominal wall is intact. Examination of the osseous structures reveal mild degenerative disease in the spine. Several benign-appearing sclerotic foci are noted in the left femur as well as the bones of the pelvis. The most prominent of these benign-appearing bone lesions is seen in the left ilium on axial image 158. 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 Several nonpathologic inguinal lymph nodes are present. Impression: 1. No acute abnormalities. No nephrolithiasis, hydronephrosis, cholelithiasis or cholecystitis. 2. Mild diverticulosis * I have personally reviewed the images and the above interpretation and agree with the findings. Procedure Note 12/25/2013 CT RENAL COLIC 12/24/2013 3:45 PM Signs and Symptoms/Comments: RUQ pain. *previous ABD u/s done at [facility]* . Technique: CT images of the abdomen and pelvis were obtained without the use of IV, po, or rectal contrast. Comparisons: Right upper quadrant ultrasound-December 15, 2013 Findings: Visualized portions of the lung bases are unremarkable. The partially imaged unenhanced liver and spleen are unremarkable. The undistended gallbladder is unremarkable. No cholelithiasis, intrahepatic or extrahepatic biliary dilatation is noted. The bilateral kidneys and adrenals are unremarkable. No nephrolithiasis or hydronephrosis visualized. No obstructions noted in the ureters. The partially collapsed urinary bladder is likewise unremarkable. The pancreas, stomach, small bowel, and appendix are unremarkable. There is diverticulosis without diverticulitis. There is no abdominal or pelvic free fluid or free air. Minimal atherosclerotic calcifications noted in the aorta. No abdominal aortic aneurysm. The anterior abdominal wall is intact. Examination of the osseous structures reveal mild degenerative disease in the spine. Several benign-appearing sclerotic foci are noted in the left femur as well as the bones of the pelvis. The most prominent of these benign-appearing bone lesions is seen in the left ilium on axial image 158. 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 Several nonpathologic inguinal lymph nodes are present. Impression: 1. No acute abnormalities. No nephrolithiasis, hydronephrosis, cholelithiasis or cholecystitis. 2. Mild diverticulosis * I have personally reviewed the images and the above interpretation and agree with the findings. Manuel Landrum MD IMG CT ORDERABLES documented in this encounter Visit Diagnoses Not on filedocumented in this encounter Care Teams Powerhouse Electrician Apprentice Relationship Specialty Start Date End Date Prem Landrum MD [address] [place] [phone] PCP - General 04/18/11 12/29/13 documented as of this encounter
--- OUTSIDE RECORDS SUMMARY | 2024-03-02 02:26 | XMS_ITS | Encounter Summary ---
Author Organization [facility] Address [address] [place] [address] Care Team Providers Care Poker Prop Player Name Role Phone Manuel Landrum MD Primary Care Provider [phone] Reason for Visit * Reason Comments Cerumen Impaction Otalgia Encounter Details Date Type Department Care Team (Late st Contact Info) Description 06/15/2015 10:45 EDT Office Visit [facility] [address] [place], [place] [phone] Chetna Noble MD [address] [facility], [address] [place] [address] Bilateral impacted cerumen [H61.23] (Primary Dx) Social History Tobacco Use Types [...] on file documented as of this encounter Progress Notes * Chetna Noble MD - 06/15/2015 1108 EDT Pt notes that he has been having left post neck pain which started almost a week ago. He only feelsit when he is moving his head. He has not tried any meds. ENT Cerumenectomy Indications for Procedure: Obstructive copious cerumen that cannot be removed safely without magnification and multiple instruments. Careful examination of the ear and removal of cerumen was done on both ears using the operating microscope and microinstruments/suction. The patient tolerated this procedure well. Complications: None Findings: Ears - hard cerumen obstructing canals, healthy once removed Neck - normal to palpation with minimal tendernes to palpation of left post neck Neck pain seems muscular, suggested trying NSAIDs F/u in 3 mos for cerumen documented in this encounter Plan of Treatment Not on file documented as of this encounter Visit Diagnoses Diagnosis Bilateral impacted cerumen [H61.23]- Primary Impacted cerumen documented in this encounter Care Teams Poker Prop Player Relationship Specialty Start Date End Date Manuel Landrum MD [address] [place] [phone] PCP - General 12/30/13 02/22/16 documented as of this encounter
--- OUTSIDE RECORDS SUMMARY | 2024-03-02 02:26 | XMS_ITS | Encounter Summary ---
Author Organization [facility] Address [address] [place] [address] Care Team Providers Care Buckshot Swage Operator Name Role Phone Prem Landrum MD Primary Care Provider + [phone] Encounter Details Date Type Department Care Team (Late st Contact Info) Description 09/01/[address] [facility] Gastroenterology - [address] [address] Prem Hearn MD 111 [facility], [address] [place] [address] Special screening for malignant neoplasms, colon (Primary Dx) Social History Tobacco Use Types [...] on file documented as of this encounter Ordered Prescriptions Prescription Sig Dispensed Refills Start Date End Da te polyethylene glycol (GOLYTELY) 236-22.74-6.74 gram suspensionIndications: Special screening for malignant neoplasms, colon Follow instructions on 'colonoscopy preparation instructions' sheet. 1 Bottle 0 09/01/2013 12/30/2013 documented in this encounter Plan of Treatment Not on file documented as of this encounter Visit Diagnoses Diagnosis Special screening for malignant neoplasms, colon- Primary documented in this encounter Care Teams Buckshot Swage Operator Relationship Specialty Start Date End Date Prem Landurm MD [address] [phone] PCP - General 04/18/11 12/29/13 documented as of this encounter
--- OUTSIDE RECORDS SUMMARY | 2024-03-02 02:26 | XMS_ITS | Encounter Summary ---
Author Organization [facility] Address [address] [place] [address] Care Team Providers Care Sanitarian Name Role Phone Manuel Landrum MD Primary Care Provider [phone] Reason for Visit * Reason Comments Cerumen Impaction Encounter Details Date Type Department Care Team (Late st Contact Info) Description 03/16/2015 8:50 EDT Office Visit [facility]- [address] [address] Chetna Noble MD [address] [facility], [address] [place] [address] Impacted cerumen, bilateral [380.4] (Primary Dx) Social History Tobacco Use Types [...] Progress Notes * Chetna Noble MD - 03/16/2015 0849 EDT Pt has had some ear itching. He has been sticking his finger in his ears. ENT Cerumenectomy Indications for Procedure: Obstructive copious cerumen that cannot be removed safely without magnification and multiple instruments. Careful examination of the ear and removal of cerumen was done on both ears using the operating microscope and microinstruments/suction. The patient tolerated this procedure well. Complications: None Findings: cerumen obstructing both canals and pushed medially by digital manipulation Discussed avoiding digital manipulation F/u in 3 mos documented in this encounter Plan of Treatment Not on file documented as of this encounter Visit Diagnoses Diagnosis Impacted cerumen, bilateral [380.4]- Primary documented in this encounter Care Teams Sanitarian Relationship Specialty Start Date End Date Manuel Landrum MD [address] [place] [phone] PCP - General 12/30/13 02/22/16 documented as of this encounter
--- OUTSIDE RECORDS SUMMARY | 2024-03-02 02:26 | XMS_ITS | Encounter Summary ---
Author Organization [facility] Address [address] [place] [address] Care Team Providers Care Order Checker Name Role Phone Manuel Landrum MD Primary Care Provider [phone] [phone] Encounter Details Date Type Department Care Team (Late st Contact Info) Description 08/08/2015 Orders Only Non [facility] Ancillary Services Grant Purdy, [place] [address] [place] [address] Elevated C-reactive protein (CRP) (Primary Dx); Disorders of sulfur-bearing amino-acid metabolism, unspecified (CMS-HCC) (HCC-CMS); Malaise and fatigue; Diverticulosis of large intestine without perforation or abscess without bleeding; Vitamin D deficiency, unspecified Social History Tobacco Use Types Packs/Day Years [...] on file documented as of this encounter Results * (ABNORMAL) HOMOCYSTEINE (08/10/2015 8:18 EST) Homocysteine 14.5(H) 4.5 - 12.4 umol/L 08/10/2015 10:39 EST [facility] Comment: Results may be falsely elevated if sample is not collected on ice or is not removed from cells within 6 hours of collection. Reference range may not apply to non-fasting samples. It is not recommended that EDTA and serum from the same patient be used interchangeably. Serum concentrations have been observed to be up to 10% higher than EDTA plasma. ??Reference range may not apply to serum results. Blood specimen (specimen) BLOOD SPECIMEN / Unknown 08/10/2015 8:18 EST 08/10/2015 8:48 EST Grant Purdy [place] CHEMISTRY & BLOOD GAS ORDERABLES [facility] [address] [place] [address] * HEMAGRAM AND DIFFERENTIAL (08/10/2015 8:18 EST) WBC 6.34 4.0 - 10.4 K/cmm 08/10/2015 8:59 [facility] RBC 5.19 4.36 - 5.78 M/cmm 08/10/2015 8:59 [facility] Hemoglobin 16.4 13.8 - 17.3 gm/dl 08/10/2015 8:59 [facility] HCT 48.1 39.5 - 50.2 % 08/10/2015 8:59 [facility] MCV 93 81 - 95 fl 08/10/2015 8:59 [facility] MCH 31.5 27.6 - 33.0 pg 08/10/2015 8:59 [facility] MCHC 34.0 32.8 - 36.4 gm/dl 08/10/2015 8:59 [facility] RDW-CV 12.8 11.8 - 14.1 % 08/10/2015 8:59 [facility] RDW-SD 42.0 36.5 - 45.9 fl 08/10/2015 8:59 [facility] PLT 258 141 - 320 K/cmm 08/10/2015 8:59 [facility] MPV 8.5 7.5 - 11.2 fl 08/10/2015 8:59 [facility] % Neutrophils 61.9 45.5 - 79.7 % 08/10/2015 8:59 [facility] % Lymphocytes 25.0 15.0 - 46.8 % 08/10/2015 8:59 [facility] % Monocytes 10.2 1.8 - 12.0 % 08/10/2015 8:59 [facility] % Eosinophils 2.2 0.6 - 6.9 % 08/10/2015 8:59 [facility] % Basophils 0.7 0.2 - 1.4 % 08/10/2015 8:59 [facility] ABS Neutrophils 3.93 2.20 - 8.85 K/cmm 08/10/2015 8:59 [facility] ABS Lymphs 1.59 1.09 - 3.30 K/cmm 08/10/2015 8:59 [facility] ABS Monocytes 0.65 0.1 - 0.8 K/cmm 08/10/2015 8:59 [facility] ABS Eosinophils 0.14 0.03 - 0.61 K/cmm 08/10/2015 8:59 [facility] ABS Basophils 0.04 0.01 - 0.11 K/cmm 08/10/2015 8:59 [facility] Type of Diff: Automated 08/10/2015 8:59 [facility] Blood specimen (specimen) BLOOD SPECIMEN / Unknown 08/10/2015 8:18 EST 08/10/2015 8:46 EST Grant Purdy [place] PACKAGES & DNA PRO BE ORDERABLES Performing Organization Address City/State/[facility] Co de Phone Number [facility] [address] [place] [address] * (ABNORMAL) VITAMIN D (25,OH) (08/10/2015 8:18 EST) 25OH Vitamin D Tot 27.2(L) 30 - 100 ng/ml 08/10/2015 12:44 [facility] Comment: Reference Range: Deficient = <10 ng/ml Insufficient = 10-30 ng/ml Sufficient = 30-100 ng/ml Toxic = >100 ng/ml Blood specimen (specimen) BLOOD SPECIMEN / Unknown 08/10/2015 8:18 EST 08/10/2015 8:46 EST Grant Purdy [place] CHEMISTRY & BLOOD GAS ORDERABLES Performing Organization Address City/[facility]/ZIP Co de Phone Number [facility] [address] [place] [address] * VITAMIN B12 (08/10/2015 8:18 EST) Pathologist [facility] Vitamin B-12 248 211 - 911 pg/ml 08/10/2015 10:22 EST [facility] Blood specimen (specimen) BLOOD SPECIMEN / Unknown 08/10/2015 8:18 EST 08/10/2015 8:46 EST Grant Purdy [place] CHEMISTRY & BLOOD GAS ORDERABLES Performing Organization Address [facility] de Phone Number [facility] [address] [place] [address] * C-REACTIVE PROTEIN HIGH SENSITIVITY (08/10/2015 8:18 EST) [facility] High Sensitivity CRP 3.0 mg/L 08/10/2015 14:38 EST [facility] Comment: Reference Range: <1.0 mg/L Low risk 1.0-3.0 mg/L Average risk >3.0 mg/L High risk >10.0 mg/L Acute inflammation Blood specimen (specimen) BLOOD SPECIMEN / Unknown 08/10/2015 8:18 EST 08/10/2015 8:46 EST Grant Purdy [place] CHEMISTRY & BLOOD GAS ORDERABLES Performing Organization Address City/[facility] Co de Phone Number [facility] [address] [place] [address] * (ABNORMAL) FOLATE (08/10/2015 8:18 EST) [facility] Folate 19.8(H) 2.8 - 18.0 ng/ml 08/10/2015 10:22 EST [facility] Comment: Deficient: ??Less than 3.4 ng/mL Indeterminate: ??3.4-5.4 ng/mL Normal: ??Greater than 5.4 ng/mL Blood specimen (specimen) BLOOD SPECIMEN / Unknown 08/10/2015 8:18 EST 08/10/2015 8:46 EST Grant Purdy [place] CHEMISTRY & BLOOD GAS ORDERABLES [facility] [address] [place] [address] documented in this encounter Visit Diagnoses Diagnosis Elevated C-reactive protein (CRP)- Primary Disorders of sulfur-bearing amino-acid metabolism, unspecified ([facility]-CMS) Malaise and fatigue Other malaise and fatigue Diverticulosis of large intestine without perforation or abscess without bleeding Diverticulosis of colon (without mention of hemorrhage) Vitamin D deficiency, unspecified documented in this encounter Care Teams Order Checker Relationship Specialty Start Date End Date Manuel Landrum MD [address] [place] [phone] PCP - General 12/30/13 02/22/16 documented as of this encounter
--- OUTSIDE RECORDS SUMMARY | 2024-03-02 02:26 | XMS_ITS | Encounter Summary ---
Author Organization [facility] Address [address] [place] [address] Care Team Providers Care Submarine Advisory Team Watch Officer Name Role Phone Manuel Landrum MD Primary Care Provider [phone] Reason for Visit * Reason Comments Cerumen Impaction Encounter Details Date Type Department Care Team (Late st Contact Info) Description 09/14/2015 10:45 EST Office Visit [facility]- [address] [id number] Chetna Noble MD 111 [facility], [address] [place] [address] Bilateral impacted cerumen [H61.23] (Primary [...] Progress Notes * Chetna Noble MD - 09/14/2015 1058 EST No problems since his last visit 3 mos ago. ENT Cerumenectomy Indications for Procedure: Obstructive copious cerumen that cannot be removed safely without magnification and multiple instruments. Careful examination of the ear and removal of cerumen was done on both ears using the operating microscope and microinstruments/suction. The patient tolerated this procedure well. Complications: None Findings: both canals occluded with cerumen, wnl once removed F/u in 3 mos documented in this encounter Plan of Treatment Not on file documented as of this encounter Visit Diagnoses Diagnosis Bilateral impacted cerumen [H61.23]- Primary Impacted cerumen documented in this encounter Care Teams Submarine Advisory Team Watch Officer Relationship Specialty Start Date End Date Manuel Landrum MD [address] [place] [phone] PCP - General 12/30/13 02/22/16 documented as of this encounter
--- OUTSIDE RECORDS SUMMARY | 2024-03-02 02:26 | XMS_ITS | Encounter Summary ---
Author Organization [facility] Address [address] [place] [address] Care Team Providers Care Commissioned Police Officer Name Role Phone Prem Landrum MD Primary Care Provider + [phone] Reason for Visit * Reason Comments Cerumen Impaction Encounter Details Date Type Department Care Team (Late st Contact Info) Description 02/03/2013 8:15 EDT Office Visit [facility]- [address] [phone] Chetna Noble MD 111 [facility], [address] [place] [address] Impacted cerumen (Primary Dx) Social History Tobacco Use [...] Progress Notes * Chetna Noble MD - 02/03/2013 1857 EDT Pt here for 3 mo visit. No problems since his last visit. ENT Cerumenectomy Indications for Procedure: Obstructive copious cerumen that cannot be removed safely without magnification and multiple instruments. Careful examination of the ear and removal of cerumen was done on both ears using the operating microscope and microinstruments/suction. The patient tolerated this procedure well. Complications: None Findings: Canals and TMs wnl once cerumen removed F/u in 3 mos documented in this encounter Plan of Treatment Not on file documented as of this encounter Visit Diagnoses Diagnosis Impacted cerumen- Primary documented in this encounter Care Teams Commissioned Police Officer Relationship Specialty Start Date End Date Prem Landrum MD [facility] [phone] PCP - General 04/18/11 12/29/13 documented as of this encounter
--- OUTSIDE RECORDS SUMMARY | 2024-03-02 02:26 | XMS_ITS | Encounter Summary ---
Author Organization [facility] Address [address] [place] [address] Care Team Providers Care Hand Edge Bander Name Role Phone Prem Landrum MD Primary Care Provider + [phone] Reason for Visit * Reason Comments Cerumen Impaction Encounter Details Date Type Department Care Team (Late st Contact Info) Description 05/06/2012 9:[address] [facility]- [address] [phone] Chetna Noble MD 111 [facility], [address] [place] [address] Impacted cerumen (Primary Dx) Social [...] Progress Notes * Chetna Noble MD - 05/06/2012 1010 EDT ENT Cerumenectomy Indications for Procedure: Obstructive copious cerumen that cannot be removed safely without magnification and multiple instruments. Careful examination of the ear and removal of cerumen was done on both ears using the operating microscope and microinstruments/suction. The patient tolerated this procedure well. Complications: None Findings: Canals and TMs wnl once cerumen removed documented in this encounter Plan of Treatment Not on file documented as of this encounter Visit Diagnoses Diagnosis Impacted cerumen- Primary documented in this encounter Care Teams Hand Edge Bander Relationship Specialty Start Date End Date Prem Landrum MD [address] [phone] PCP - General 04/18/11 12/29/13 documented as of this encounter
--- OUTSIDE RECORDS SUMMARY | 2024-03-02 02:26 | XMS_ITS | Encounter Summary ---
Author Organization [facility] Address [address] [place] [address] Care Team Providers Care Wafer Production Worker Name Role Phone Prem Landrum MD Primary Care Provider + [phone] Reason for Visit * Reason Comments Follow-up Encounter Details Date Type Department Care Team (Late st Contact Info) Description 02/04/2012 8:15 EDT Office Visit [facility] ENT- [address] [address] Chetna Noble MD 111 [facility], [address] [place] [address] Impacted cerumen (Primary Dx) Social [...] Progress Notes * Chetna Noble MD - 02/04/2012 0831 EDT ENT Cerumenectomy Indications for Procedure: Obstructive copious cerumen that cannot be removed safely without magnification and multiple instruments. Careful examination of the ear and removal of cerumen was done on both ears using the operating microscope and microinstruments/suction. The patient tolerated this procedure well. Complications: None Findings: See physical exam Canals and TMs wnl once cerumen removed documented in this encounter Plan of Treatment Not on file documented as of this encounter Visit Diagnoses Diagnosis Impacted cerumen- Primary documented in this encounter Care Teams Wafer Production Worker Relationship Specialty Start Date End Date Prem Landrum MD [facility] [phone] PCP - General 04/18/11 12/29/13 documented as of this encounter
--- OUTSIDE RECORDS SUMMARY | 2024-03-02 02:26 | XMS_ITS | Encounter Summary ---
Author Organization [facility] Address [address] [place] [address] Care Team Providers Care Parimutuel Cashier Name Role Phone Manuel Landrum MD Primary Care Provider +1 [phone] Encounter Details Date Type Department Care Team (Late st Contact Info) Description 01/31/2016 Abstract [facility] Adult Primary Care - [address] [address] Ya Yee MD [address] [place] [phone] Social History Tobacco Use Types Packs/Day Years [...] on filedocumented in this encounter Care Teams Parimutuel Cashier Relationship Specialty Start Date End Date Manuel Landrum MD [address] [place] [phone] PCP - General 12/30/13 02/22/16 documented as of this encounter
--- OUTSIDE RECORDS SUMMARY | 2024-03-02 02:26 | XMS_ITS | Encounter Summary ---
Author Organization [facility] Address [address] [place] [address] Care Team Providers Care Telegraphic Typewriter Operator Name Role Phone Manuel Landrum MD Primary Care Provider [phone] [phone] Reason for Visit * Reason Comments Cerumen Impaction Encounter Details Date Type Department Care Team (Late st Contact Info) Description 12/16/2014 10:45 EDT Office Visit [facility]- [address] [id number] Chetna Noble MD [address] [facility], [address] [place] [address] Impacted cerumen (Primary Dx) Discharge Disposition: Auto Discharge [...] as of this encounter Discharge Diagnoses Diagnosis 380.4 IMPACTED CERUMEN[ICD-9-CM] documented in this encounter Discharge Disposition Disposition Code Departure Means Destination Auto Discharge documented in this encounter Progress Notes * Chetna Noble MD - 12/16/2014 1322 EDT No problems since his last visit. [...] Primary documented in this encounter Care Teams Telegraphic Typewriter Operator Relationship Specialty Start Date End Date Manuel Landrum MD [address] [place] [phone] PCP - General 12/30/13 02/22/16 documented as of this encounter
--- OUTSIDE RECORDS SUMMARY | 2024-03-02 02:26 | XMS_ITS | Encounter Summary ---
Author Organization [facility] Address [address] [place] [address] Care Team Providers Care Sample Finisher Name Role Phone Prem Landrum MD Primary Care Provider + [phone] Reason for Visit * Reason Comments Cerumen Impaction Encounter Details Date Type Department Care Team (Late st Contact Info) Description 06/26/2013 10:30 EST Office Visit [facility]- [address] [address] Chetna Noble MD 111 [facility], [address] [place] [address] Impacted cerumen (Primary Dx) Social [...] Progress Notes * Chetna Noble MD - 06/26/2013 105 EST Pt here for 3 mo f/u. No problems since his last visit. ENT Cerumenectomy Indications for Procedure: Obstructive copious cerumen that cannot be removed safely without magnification and multiple instruments. Careful examination of the ear and removal of cerumen was done on both ears using the operating microscope and microinstruments/suction. The patient tolerated this procedure well. Complications: None Findings: PE - TMs and canals wnl once cerumen removed F/u in 3 mos. documented in this encounter Plan of Treatment Not on file documented as of this encounter Visit Diagnoses Diagnosis Impacted cerumen- Primary documented in this encounter Care Teams Sample Finisher Relationship Specialty Start Date End Date Prem Landrum MD [facility] [phone] PCP - General 04/18/11 12/29/13 documented as of this encounter
--- OUTSIDE RECORDS SUMMARY | 2024-03-02 02:26 | XMS_ITS | Encounter Summary ---
Author Organization [facility] Address [address] [place] [address] Care Team Providers Care Design Studio Consultant Name Role Phone Ya Yee MD Primary Care Provider [phone] [phone] Reason for Visit * Reason Comments Follow-up Encounter Details Date Type Department Care Team (Late st Contact Info) Description 03/28/2016 8:50 EDT Office Visit [facility] ENT- [address] [address] Chetna Noble MD [address] [place] [address], [address] [place] [address] Bilateral impacted cerumen (Primary Dx) [...] visiting a doctor's office or shopping? No 02/23/2016 Cognitive Status Response Date of Assessm ent Because of a physical, menta l, or emotional condition, does this person have serious difficulty concentrating, remembering, or making decisions? No 02/23/2016 documented as of this encounter Progress Notes * Chetna Noble MD - 03/28/2016 1011 EDT No problems since his last visitl ENT Cerumenectomy Indications for Procedure: Obstructive copious cerumen that cannot be removed safely without magnification and multiple instruments. Careful examination of the ear and removal of cerumen was done on both ears using the operating microscope and microinstruments/suction. The patient tolerated this procedure well. Complications: None Findings: Ears - canals and TMS wnl once cerumen removed F/u in 3 mos documented in this encounter Plan of Treatment Not on file documented as of this encounter Visit Diagnoses Diagnosis Bilateral impacted cerumen- Primary Impacted cerumen documented in this encounter Care Teams Design Studio Consultant Relationship Specialty Start Date End Date Ya Yee MD [address] [place] [phone] PCP - General 02/23/16 10/02/21 documented as of this encounter
--- OUTSIDE RECORDS SUMMARY | 2024-03-02 02:26 | XMS_ITS | Encounter Summary ---
Author Organization [facility] Address [address] [place] [address] Care Team Providers Care Armature Tester Name Role Phone Prem Landrum MD Primary Care Provider + [phone] Reason for Visit * Reason Comments Follow-up Encounter Details Date Type Department Care Team (Late st Contact Info) Description 11/04/2012 11:20 EDT Office Visit [facility] ENT- [address] [phone] Chetna Noble MD 111 [facility], [address] [place] [address] Impacted cerumen (Primary Dx) Social [...] Progress Notes * Chetna Noble MD - 11/04/2012 1151 EDT ENT Cerumenectomy Indications for Procedure: Obstructive copious cerumen that cannot be removed safely without magnification and multiple instruments. Careful examination of the ear and removal of cerumen was done on both ears using the operating microscope and microinstruments/suction. The patient tolerated this procedure well. Complications: None Findings: TMs and canals wnl once cerumen removed documented in this encounter Plan of Treatment Not on file documented as of this encounter Visit Diagnoses Diagnosis Impacted cerumen- Primary documented in this encounter Care Teams Armature Tester Relationship Specialty Start Date End Date Prem Landrum MD [address] [phone] PCP - General 04/18/11 12/29/13 documented as of this encounter
--- OUTSIDE RECORDS SUMMARY | 2024-03-02 02:26 | XMS_ITS | Encounter Summary ---
Author Organization [facility] Address [address] [place] [address] Care Team Providers Care Hearing Health Technician Name Role Phone Manuel Landrum MD Primary Care Provider [phone] Encounter Details Date Type Department Care Team (Latest Contact Info) Description 08/09/2015 13:36 EST - 08/09/2015 13:37 [facility] Hospital Encounter [address] [address] Manuel Landrum MD [address] [place] [phone] Discharge Disposition: Home or Self Care Social [...] Unspecified abdominal pain-R10.9[ICD-10-CM] documented in this encounter Discharge Disposition Disposition Code Departure Means Destination Home or Self Care documented in this encounter Plan of Treatment Not on file documented as of this encounter Visit Diagnoses Not on filedocumented in this encounter Care Teams Hearing Health Technician Relationship Specialty Start Date End Date Manuel Landrum MD [address] [place] [phone] PCP - General 12/30/13 02/22/16 documented as of this encounter
--- OUTSIDE RECORDS SUMMARY | 2024-03-02 02:26 | XMS_ITS | Encounter Summary ---
Author Organization [facility] Address [address] [place] [address] Care Team Providers Care Softlines Supervisor Name Role Phone Manuel Landrum MD Primary Care Provider [phone] Reason for Visit * Reason Comments Cerumen Impaction Encounter Details Date Type Department Care Team (Late st Contact Info) Description 08/03/2014 10:30 EST Office Visit [facility] ENT- [address] [phone] Chetna Noble MD 111 [facility], [address] [place] [address] Impacted cerumen (Primary Dx) Social [...] Progress Notes * Chetna Noble MD - 08/03/2014 1038 EST 2 mos since his last visit. No problems. ENT Cerumenectomy Indications for Procedure: Obstructive copious cerumen that cannot be removed safely without magnification and multiple instruments. Careful examination of the ear and removal of cerumen was done on both ears using the operating microscope and microinstruments/suction. The patient tolerated this procedure well. Complications: None Findings: Canals obstructed with cerumen but much easier to remove with more frequent visits. F/u in 2 mos documented in this encounter Plan of Treatment Not on file documented as of this encounter Visit Diagnoses Diagnosis Impacted cerumen- Primary documented in this encounter Care Teams Softlines Supervisor Relationship Specialty Start Date End Date Manuel Landrum MD [address] [place] [phone] PCP - General 12/30/13 02/22/16 documented as of this encounter
--- OUTSIDE RECORDS SUMMARY | 2024-03-02 02:26 | XMS_ITS | Encounter Summary ---
Author Organization [facility] Address [address] [place] [address] Care Team Providers Care Machine Heddle Cleaner Name Role Phone Prem Landrum MD Primary Care Provider + [phone] Reason for Visit * Reason Comments Cerumen Impaction Encounter Details Date Type Department Care Team (Late st Contact Info) Description 08/04/2012 9:40 EST Office Visit [facility] ENT- [address] [address] Chetna Noble MD 111 [facility], [address] [place] [address] Impacted cerumen (Primary Dx) Social [...] Progress Notes * Chetna Noble MD - 08/04/2012 1028 EST ENT Cerumenectomy Indications for Procedure: Obstructive copious cerumen that cannot be removed safely without magnification and multiple instruments. Careful examination of the ear and removal of cerumen was done on both ears using the operating microscope and microinstruments/suction. The patient tolerated this procedure well. Complications: None Findings: See physical exam - TMs and canals wnl once cerumen removed documented in this encounter Plan of Treatment Not on file documented as of this encounter Visit Diagnoses Diagnosis Impacted cerumen- Primary documented in this encounter Care Teams Machine Heddle Cleaner Relationship Specialty Start Date End Date Prem Landrum MD [facility] [phone] PCP - General 04/18/11 12/29/13 documented as of this encounter
--- OUTSIDE RECORDS SUMMARY | 2024-03-02 02:26 | XMS_ITS | Encounter Summary ---
Author Organization [facility] Address [address] [place] [address] Care Team Providers Care Plastic Tool Maker Name Role Phone Ya Yee MD Primary Care Provider [phone] Reason for Visit * Reason Comments New Patient Visit Encounter Details Date Type Department Care Team (Late st Contact Info) Description 02/23/2016 10:00 EDT Office Visit [facility] Adult Primary Care - [address] [phone] Ya Yee MD [address] [place] [address] Hyperlipidemia, unspecified hyperlipidemia type (Primary Dx); Essential hypertension with goal blood pressure less than 140/90 Social History Tobacco Use Types Packs/Day Years [...] Sign Reading Time Taken Comments Blood Pressure 150/80 02/23/2016 1003 EDT Pulse 80 02/23/2016 1003 EDT Temperature 36.7 ??C (98 ??F) 02/23/2016 1003 EDT Respiratory Rate 16 02/23/2016 1003 EDT Oxygen Saturation - - Inhaled Oxygen Concentration - - Weight 80.1 kg (176 lb 8 oz) 02/23/2016 1003 EDT Height 177.8 cm (5' 10) 02/23/2016 1003 EDT Body Mass Index 25.33 02/23/2016 1003 EDT documented in this encounter Functional Status [...] Progress Notes * Ya Yee MD - 02/23/2016 1014 EDT Patient ID: Luis Clayton Chief Complaint: New Patient Visit Patient Profile: The patient is a 65 y.o. 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 He is and lives with his . Current exercise: bicycling. Current diet: healthy diet in general. Stress concerns are: none. Functional or impairment concerns are: none. His home environment is safe. His activities of daily living are normal. History of present Illness (HPI): Mr. Ramirez presents to [facility]. He is a former patient of Dr. Landrum. He is generally healthy and has no health concerns today. He is functionally independent, he sleeps well, his mood is good. He exercises regularly though not at the intensity that he used to. HTN: Patient has history of borderline BP. Has a cuff at home but it does not seem reliable. Reviewing records from [facility] it appears his in office readings have ranged from 130-150 systolic overthe past 3-4 years. He denies h/a, vision changes, CP, edema. Has never been on medication and is reluctant to start. HLD: Also has a history of HLD. Last cholesterol was in 2013 was 271, LDL 166, Trig 226, HDL 57. Has never been on medication for this either. Has no personal history of CAD but does have a strong family history of his father's side. Tries to follow low-fat diet. Health maintenance: up to date with colonoscopy and vaccines. Patient Active Problem List Diagnosis Date Noted [...] Mother Alzheimers ??? Heart Disease Father [address] [place] ??? High Blood Pressure Father ??? High Cholesterol Father ??? Heart Disease Paternal Uncle ??? Diabetes Paternal Uncle No current outpatient prescriptions on file. No Known Allergies History Substance Use Topics ??? Smoking status: Never Smoker ??? Smokeless tobacco: Never Used Comment: Quit as a teenager ??? Alcohol Use: 4.8 oz/week 8 Glasses of wine per week Review of Systems: System Neg Pos Comments Constitutional x Eyes x ENT x Cardiovascular x Pulmonary x Gastrointestinal x Genitourinary x Musculoskeletal x Skin/breast x Neurological x Psychiatric x Endocrine x Hematologic Lymphatic x Allergic Immunologic x Objective: Physical Examination: BP 150/80 mmHg Pulse 80 Temp(Src) 36.7 ??C (98 ??F) (Tympanic) Resp 16 Ht 177.8 cm (70) Wt 80.06 kg (176 lb 8 oz) BMI 25.33 kg/m2 General: Alert, cooperative, no distress. Head: Normocephalic, without obvious abnormality. Eyes: Conjunctivae clear. PERRL, EOMs intact. Neck: Supple, symmetrical, trachea midline, no adenopathy, [...] Extremities atraumatic, no clubbing, cyanosis or edema Pulses: 2+ and symmetric all extremities. Skin: Skin color, texture, turgor normal. No rashes or suspicious lesions. LABS: As noted in HPI Assessment: Health Maintenance activities are largely up-to-date, an annual flu shot is recommended each fall/winter. HTN: borderline. Discussed with patient that he may not be able to achieve BP control with lifestyle modifications alone given his healthy lifestyle already. However, as he is very reluctant to startmedication I think it's reasonable to trial a low-sodium diet x 6 months and reevaluate. Patient isin agreement with this plan HLD: Elevated. We had the same conversation re: lipids as re: BP. Will plan on checking lipids in 6months. Immunization History Administered Date(s) Administered ? ? Pneumococcal Polysaccharide Vaccine (PPSV23) =>2YO SQ/IM 08/10/2008 ??? Shingles (Herpes Zoster) SQ 03/08/2011 ? ? Tdap Vaccine =>7YO IM 08/27/2013 Advance Directive status: not on file in [facility]. The patient is encouraged to complete/update and/or send us a copy of his Advance Directives to included in the [facility] medical record. Plan: Recommendations: Health Maintenance Topic Date Due ??? FALL RISK SCREENING 2013 ??? HEPATITIS C SCREEN 08/03/2014 ??? COLON CANCER SCREENING COLONOSCOPY 09/16/2018 - Regular eye exams to check visual [...] This Exam: Luis was seen today for new patient visit. Diagnoses and all orders for this visit: Hyperlipidemia, unspecified hyperlipidemia type - Lipid Profile (Includes Cholesterol, Triglycerides, HDL, LDL) (6 Months); Future Essential hypertension with goal blood pressure less than 140/90 - Comprehensive Metabolic Panel (CMP) (6 Months); Future F/u in 6 months for AWV and to f/u re HLD and HTN. Labs prior (ordered) Today's orkc-tw-ihed visit time was 60 minutes with 45 minutes spent in counseling and/or coordination of [...] with speech recognition software or keyboard database marketing manager techniques. Minor irregularities or keyboarding misprints may be present documented in this encounter Plan of Treatment Not on file documented as of this encounter Results * COMPREHENSIVE METABOLIC PANEL (CMP) (08/21/2016 9:03 EST) Potassium 5.0 3.5 - 5.0 mEq/L 08/21/2016 10:29 [facility] Sodium 144 136 - 145 mEq/L 08/21/2016 10:29 [facility] Chloride 103 96 - 110 mEq/L 08/21/2016 10:29 [facility] CO2 28 22 - 32 mEq/L 08/21/2016 10:29 [facility] Comment:Note new reference r megha 06/05/16 Total Alkaline Phosphatase 78 38 - 126 U/L 08/21/2016 10:29 [facility] Bilirubin, Total 0.8 <1.4 mg/dl 08/21/19 17 10:29 [facility] AST 27 15 - 46 U/L 08/21/2016 10:29 [facility] ALT 43 21 - 72 U/L 08/21/2016 10:29 [facility] Albumin 4.4 3.4 - 4.9 g/dl 08/21/2016 10:29 [facility] Total Protein 7.1 6.3 - 8.2 g/dl 08/21/2016 10:29 [facility] Creatinine 0.78 0.66 - 1.25 mg/dl 08/21/2016 10:29 [facility] GFR, Calculated 93 >60 ml/min/1.7 3m2 08/21/2016 10:29 [facility] Comment: eGFR calculated using CKD-EPI equation for non Americans. Multiply eGFR by 1.16 for Americans. BUN 15 10 - 26 mg/dl 08/21/2016 10:29 [facility] Calcium 9.4 8.5 - 10.5 mg/dl 08/21/2016 10:29 [facility] Calculated Calcium 9.1 8.5 - 10.5 mg/dl 08/21/2016 10:29 [facility] Comment: Note new formula for calculation in use 05/23/2016 Glucose, Serum 90 70 - 100 mg/dl 08/21/2016 10:29 [facility] Fasting? YES 08/21/2016 8:59 [facility] Blood specimen (specimen) BLOOD SPECIMEN / Unknown 08/21/2016 9:03 EST 08/21/2016 9:52 EST Ya Yee MD CHEMISTRY & BLOOD GAS ORDERABLES [facility] [address] [place] [address] * LIPID PROFILE (INCLUDES CHOLESTEROL, TRIGLYCERIDES, HDL, LDL) (08/21/2016 9:03 EST) Cholesterol 221 mg/dl 08/21/2016 10:29 [facility] Comment: Desirable:<200 Borderline High:200-239 High:>qr=670 Triglycerides 96 mg/dl 08/21/2016 10:29 [facility] Comment: Normal:<150 Borderline High:150-199 High:200-499 Very High:>kz=669 HDL 54 mg/dl 08/21/2016 10:29 [facility] Comment: Low:<40 Normal:40-60 Desirable: >60 LDL, Calculated 148 mg/dl 7 10:29 [facility] Comment: Optimal:<100 Near Optimal:100-129 Borderline High:130-159 High:160-189 Very High:>rp=199 Chol/HDL Ratio 4.1 08/21/2016 10:29 [facility] Fasting? YES 08/21/2016 8:59 [facility] Non HDL Cholesterol 167 mg/dl 08/21/2016 10:29 [facility] Comment: Desirable:<130 Borderline:130-159 High: 160-189 Very High: >gr=136 Blood specimen (specimen) BLOOD SPECIMEN / Unknown 08/21/2016 9:03 EST 08/21/2016 9:52 EST Ya Yee MD CHEMISTRY & BLOOD GAS ORDERABLES [facility] [address] [place] [address] documented in this encounter Visit Diagnoses Diagnosis Hyperlipidemia, unspecified hyperlipidemia type- Primary Essential hypertension with goal blood pressure less than 140/90 documented in this encounter Care Teams Plastic Tool Maker Relationship Specialty Start Date End Date Ya Yee MD [address] [place] [phone] PCP - General 02/23/16 10/02/21 documented as of this encounter
--- OUTSIDE RECORDS SUMMARY | 2024-03-02 02:26 | XMS_ITS | Encounter Summary ---
Author Organization [facility] Address [address] [place] [address] Care Team Providers Care Reporting Developer Name Role Phone Prem Landrum MD Primary Care Provider Encounter Details Date Type Department Care Team (Latest Contact Info) Description 11/11/2013 9:50 EDT - 11/11/2013 23:59 EDT Hospital Encounter [facility] [address] [place] [address] Manuel Landrum MD [address] [place] [phone] Discharge Disposition: Home or Self Care Social [...] as of this encounter Discharge Diagnoses Diagnosis V72.5 RADIOLOGICAL EXAM NEC[ICD-9-CM] documented in this encounter Medications at Time of Discharge Medication Sig Dispensed Refills Start Date End Date polyethylene glycol (GOLYTELY) 236-22.74-6.74 gram suspensionIndications :Special screening for malignant neoplasms, colon Follow instructions on 'colonoscopy preparation instructions' sheet. 1 Bottle 0 09/01/2013 12/30/2013 documented as of this encounter Discharge Disposition Disposition Code Departure Means Destination Home or Self Long-Term documented in this encounter Plan of Treatment Not on file documented as of this encounter Visit Diagnoses Not on filedocumented in this encounter Care Teams Reporting Developer Relationship Specialty Start Date End Date Prem Landrum MD [address] [phone] PCP - General 04/18/11 12/29/13 documented as of this encounter
--- OUTSIDE RECORDS SUMMARY | 2024-03-02 02:26 | XMS_ITS | Encounter Summary ---
Author Organization [facility] Address [address] [place] [address] Care Team Providers Care Tunnel Elastic Operator Chainstitch Name Role Phone Manuel Landrum MD Primary Care Provider +1 [phone] Encounter Details Date Type Department Care Team (Latest Contact Info) Description 08/16/2015 18:45 EST - 08/16/2015 23:[address] [facility] Hospital Encounter [facility] [address] [place] [address] Manuel Landrum MD [address] [place] [phone] Discharge Disposition: Home or Self Care Social [...] as of this encounter Discharge Diagnoses Diagnosis Z01.89 Encounter for other specified special examinations-Z01.89[ICD-10-CM] documented in this encounter Discharge Disposition Disposition Code Departure Means Destination Home or Self Prison documented in this encounter Plan of Treatment Not on file documented as of this encounter Visit Diagnoses Not on filedocumented in this encounter Care Teams Tunnel Elastic Operator Chainstitch Relationship Specialty Start Date End Date Manuel Landrum MD [address] [phone] (work) PCP - General 12/30/13 02/22/16 documented as of this encounter
--- OUTSIDE RECORDS SUMMARY | 2024-03-02 02:26 | XMS_ITS | Encounter Summary ---
Author Organization [facility] Address [address] [place] [address] Care Team Providers Care Refuge Manager Name Role Phone Manuel Landrum MD Primary Care Provider +1 [phone] Encounter Details Date Type Department Care Team (Late st Contact Info) Description 06/08/2015 Results Only [facility] [phone] Manuel Landrum MD [address] [place] [phone] Social History Tobacco Use Types Packs/Day [...] Name Priority Date/Time Associated Diagnosis Comments URINE CHEMICAL (DIP) & SEDIMENT (MICRO) WITHOUT REFLEX TO CULTURE Routine 06/08/2015 10:57 EDT documented in this encounter Results * UA WITH MICROSCOPIC (06/08/2015 10:57 EDT) Color, UA Yellow 06/08/2015 16:57 EDT [facility] Clarity, UA Clear 06/08/2015 16:57 EDT [facility] Glucose, UA Neg Neg 06/08/2015 16:57 EDT [facility] Bilirubin, UA Neg Neg 06/08/2015 16:57 T [facility] Ketones, UA Neg Neg 06/08/2015 16:57 [facility] Specific [place], Urine 1.015 1.001 - 1.035 06/08/2015 16:57 [facility] Blood, UA Neg Neg 06/08/2015 16:57 [facility] pH, UA 6.5 4.6 - 8.0 06/08/2015 16:57 [facility] Protein, UA Neg Neg 06/08/2015 16:57 [facility] Urobilinogen, UA 0.2 0.2 - 1.0 E.U./dl 06/08/2015 16:57 [facility] Nitrite, UA Neg Neg 06/08/2015 16:57 [facility] Leuk Esterase Neg Neg 06/08/2015 16:57 [facility] WBC, UA None seen 0 - 5 /HPF 06/08/2015 16:57 [facility] RBC, UA None seen 0 - 5 /HPF 06/08/2015 16:57 [facility] Squam Epithel, UA None seen None seen /HPF 06/08/2015 16:57 [facility] Renal Epithel, UA None seen None seen /HPF 06/08/2015 16:57 [facility] Bacteria, UA None seen None seen /HPF 06/08/2015 16:57 [facility] Crystals, UA None seen /HPF 06/08/2015 16:57 [facility] Hyaline Casts, UA None seen /LPF 06/08/2015 16:57 [facility] UA Comment Microscopic results 06/08/2015 16:37 [facility] Comment: are unreliable on urines unrefrig >2hrs or refrig >8hrs. URINE / Unknown 06/08/2015 1 0:57 EDT 06/08/2015 16:37 EDT Manuel Landrum MD URINALYSIS ORDERA BLES [facility] [address] [place] [address] documented in this encounter Visit Diagnoses Not on filedocumented in this encounter Care Teams Refuge Manager Relationship Specialty Start Date End Date Manuel Landrum MD [address] [place] [phone] PCP - General 12/30/13 02/22/16 documented as of this encounter
--- OUTSIDE RECORDS SUMMARY | 2024-03-02 02:26 | XMS_ITS | Encounter Summary ---
Author Organization [facility] Address [address] [place] [address] Care Team Providers Care Pediatric Critical Care Nurse Name Role Phone Manuel Landrum MD Primary Care Provider [phone] [phone] Reason for Visit * Reason Comments Cerumen Impaction Encounter Details Date Type Department Care Team (Late st Contact Info) Description 03/31/2014 10:30 EDT Office Visit [facility] E[facility]- [address] [phone] Chetna Noble MD [address] [facility], [address] [place] [address] Impacted cerumen (Primary Dx) Social [...] Progress Notes * Chetna Noble MD - 03/31/2014 1103 EDT Pts notes that his thinks that his ears become plugged sooner than 3 mos. ENT Cerumenectomy Indications for Procedure: Obstructive copious cerumen that cannot be removed safely without magnification and multiple instruments. Careful examination of the ear and removal of cerumen was done on both ears using the operating microscope and microinstruments/suction. The patient tolerated this procedure well. Complications: None Findings: PE - canals and TMs wnl once cerumen removed. F/u in 2 mos documented in this encounter Plan of Treatment Not on file documented as of this encounter Visit Diagnoses Diagnosis Impacted cerumen- Primary documented in this encounter Care Teams Pediatric Critical Care Nurse Relationship Specialty Start Date End Date Manuel Landrum MD [address] [place] [phone] PCP - General 12/30/13 02/22/16 documented as of this encounter
--- OUTSIDE RECORDS SUMMARY | 2024-03-02 02:26 | XMS_ITS | Encounter Summary ---
Author Organization [facility] Address [address] [place] [address] Care Team Providers Care Special Ed Assistant Name Role Phone Manuel Landrum MD Primary Care Provider [phone] Ya Yee MD Primary Care Provider [phone] [phone] Reason for Visit * Reason Onset Date Comments Appointment Related 01/31/2016 Encounter Details Date Type Department Care Team (Late st Contact Info) Description 01/31/2016 Telephone [facility] Primary [facility] - [address] [phone] Ya Yee MD [address] [place] [phone] Appointment Related Social History Tobacco Use [...] on file documented as of this encounter Miscellaneous Notes * Telephone Encounter - Fay Villanueva - 01/31/2016 0857 EDT External records received from [facility] forwarded to [facility] for extraction. documented in this encounter Plan of Treatment Not on file documented as of this encounter Visit Diagnoses Not on filedocumented in this encounter Care Teams Special Ed Assistant Relationship Specialty Start Date End Date Manuel Landrum MD [address] [place] [phone] PCP - General 12/30/13 02/22/16 Ya Yee MD [address] [place] [phone] PCP - General 02/23/16 10/02/21 documented as of this encounter
--- OUTSIDE RECORDS SUMMARY | 2024-03-02 02:26 | XMS_ITS | Encounter Summary ---
Author Organization [facility] Address [address] [place] [address] Care Team Providers Care Pediatric Clinical Dietician Name Role Phone Manuel Landrum MD Primary Care Provider [phone] [phone] Reason for Visit * Reason Comments Cerumen Impaction Encounter Details Date Type Department Care Team (Late st Contact Info) Description 12/28/2015 8:50 EDT Office Visit [facility]- [address] [phone] Chetna Noble MD [address] [facility], [address] [place] [address] Bilateral impacted cerumen [H61.23] (Primary [...] Progress Notes * Chetna Noble MD - 12/28/2015 0913 EDT No problems since his last visit. ENT Cerumenectomy Indications for Procedure: Obstructive copious cerumen that cannot be removed safely without magnification and multiple instruments. Careful examination of the ear and removal of cerumen was done on both ears using the operating microscope and microinstruments/suction. The patient tolerated this procedure well. Complications: None Findings: canals and TMs wnl once cerumen removed F/u in 3 mos documented in this encounter Plan of Treatment Not on file documented as of this encounter Visit Diagnoses Diagnosis Bilateral impacted cerumen [H61.23]- Primary Impacted cerumen documented in this encounter Care Teams Pediatric Clinical Dietician Relationship Specialty Start Date End Date Manuel Landrum MD [address] [place] [phone] PCP - General 12/30/13 02/22/16 documented as of this encounter
--- OUTSIDE RECORDS SUMMARY | 2024-03-02 02:26 | XMS_ITS | Encounter Summary ---
Author Organization [facility] Address [address] [place] [address] Care Team Providers Care Rangelands Conservation Laborer Name Role Phone Manuel Landrum MD Primary Care Provider +1 [phone] Encounter Details Date Type Department Care Team (Latest Contact Info) Description 01/20/2014 9:01 EDT - 01/20/2014 23:59 EDT Hospital Encounter [facility] [address] [place] [phone] Grant Purdy ND [address] [place] [phone] Discharge Disposition: Home or Self Care Social [...] as of this encounter Discharge Diagnoses Diagnosis 780.79 MALAISE[ICD-9-CM] 562.11 DIVERTICULITIS OF COLON W/O BLEED[ICD-9-CM] 789.00 ABDOMINAL PAIN UNSPEC SITE[ICD-9-CM] 796.2 ELEV BL PRES W/O HYPERTN[ICD-9-CM] 281.9 DEFICIENCY ANEMIA NOS[ICD-9-CM] documented in this encounter Discharge Disposition Disposition Code Departure Means Destination Home or Self Jail documented in this encounter Plan of Treatment Pending Results Name Type Priority Associated Diagnoses Date /Time HEMAGRAM AND DIFFERENTIAL Lab Routine 01/20/2014 9:11 EDT Scheduled Orders Name Type Priority Associated Diagnoses Orde r Schedule HEMAGRAM AND DIFFERENTIAL Lab Routine One Time for 1 Occurrences starting 01/20/2014 until 01/20/2014 documented as of this encounter Procedures Procedure Name Priority Date/Time Associated Diagnosis Comments VITAMIN D (25,OH) Routine 01/20/2014 9:1 1 EDT LYME AB Routine 01/20/2014 9:11 EDT IBC Routine 01/20/2014 9:11 EDT DIFFERENTIAL Routine 01/20/2014 9:11 EDT DHEA SULFATE Routine 01/20/2014 9:11 EDT COMPLETE BLOOD COUNT Routine 01/20/2014 9:11 EDT TESTOSTERONE, TOTAL AND FREE Routine 01/20/2014 9:11 EDT HIGH SENSITIVITY C-REACTIVE PROTEIN (CARDIOVASCULAR DISEASE) Routine 01/20/2014 9:11 EDT TSH Routine 01/20/2014 9:11 EDT IRON Routine 01/20/2014 9:11 EDT HOMOCYSTEINE Routine 01/20/2014 9:11 EDT HEMOGLOBIN A1C Routine 01/20/2014 9:11 EDT GGT Routine 01/20/2014 9:11 EDT FERRITIN Routine 01/20/2014 9:11 EDT VITAMIN B12 Routine 01/20/2014 9:11 EDT COMPREHENSIVE METABOLIC PANEL (CMP) Routine 01/20/2014 9:11 EDT documented in this encounter Results * DIFFERENTIAL (01/20/2014 9:11 EDT) % Neutrophils 59.7 45.5 - 79.7 % [facility] % Lymphocytes 25.8 15.0 - 46.8 % [facility] % Monocytes 10.0 1.8 - 12.0 % [facility] % Eosinophils 3.6 0.6 - 6.9 % [facility] % Basophils 0.9 0.2 - 1.4 % [facility] ABS Neutrophils 3.98 2.20 - 8.85 K/cmm [facility] ABS Lymphs 1.72 1.09 - 3.30 K/cmm [facility] ABS Monocytes 0.67 0.1 - 0.8 K/cmm [facility] ABS Eosinophils 0.24 0.03 - 0.61 K/cmm [facility] ABS Basophils 0.06 0.01 - 0.11 K/cmm [facility] Type of Diff: Automated [facility] 01/20/2014 9:11 EDT 01/20/2014 9:53 EDT Grant Purdy ND HEMATOLOGY & PF4 O RDERABLES Performing Organization Address City/State/[facility] Co de Phone Number [facility] [address] [place] [address] * (ABNORMAL) HEMAGRAM (01/20/2014 9:11 EDT) WBC 6.67 4.0 - 10.4 K/cmm [facility] RBC 4.90 4.36 - 5.78 M/cmm [facility] Hemoglobin 16.2 13.8 - 17.3 gm/dl [facility] HCT 46.6 39.5 - 50.2 % [facility] MCV 95 81 - 95 fl [facility] MCH 33.1(H) 27.6 - 33.0 pg [facility] MCHC 34.9 32.8 - 36.4 gm/dl [facility] PLT 273 141 - 320 K/cmm [facility] RDW-CV 13.0 11.8 - 14.1 % [facility] 01/20/2014 9:11 EDT 01/20/2014 9:53 EDT Grant Purdy ND HEMATOLOGY & PF4 O RDERABLES Performing Organization Address [facility] Phone Number [facility] [address] [place] [address] * VITAMIN D (25,OH) (01/20/2014 9:11 EDT) 25OH Vitamin D Tot 26.4 ng/ml [facility] Comment: Reference Range: Deficient = <10 ng/ml Insufficient = 10-30 ng/ml Sufficient = 30-100 ng/ml Toxic = >100 ng/ml 01/20/2014 9:11 EDT 01/20/2014 9:53 EDT Grant Purdy ND CHEMISTRY & BLOOD GAS ORDERABLES Performing Organization Address [facility] Phone Number [facility] [address] [place] [address] * TSH (01/20/2014 9:11 EDT) Pathologist [facility] TSH 1.30 0.35 - 5.00 uIU/ml [facility] 01/20/2014 9:11 EDT 01/20/2014 9:53 EDT Grant Purdy ND CHEMISTRY & BLOOD GAS ORDERABLES Performing Organization Address [facility] Phone Number [facility] [address] [place] [address] * C-REACTIVE PROTEIN HIGH SENSITIVITY (01/20/2014 9:11 EDT) High Sensitivity CRP 3.4 mg/L [facility] Comment: Reference Range: <1.0 mg/L Low risk 1.0-3.0 mg/L Average risk >3.0 mg/L High risk >10.0 mg/L Acute inflammation 01/20/2014 9:11 EDT 01/20/2014 9:53 EDT Grant Purdy ND CHEMISTRY & BLOOD GAS ORDERABLES [facility] [address] [place] [address] * LYME AB (01/20/2014 9:11 EDT) [facility] [place] AB Interpretati on: Negative [facility] Comment:Reference Range: Neg ative 01/20/2014 9:11 EDT 01/20/2014 9:53 EDT Grant Purdy ND IMMUNOLOGY AND SER OLOGY ORDERABLES Performing Organization Address [facility] Co de Phone Number [facility] [address] [place] [address] * IRON (01/20/2014 9:11 EDT) [facility] Iron 82 49 - 181 ug/dl [facility] 01/20/2014 9:11 EDT 01/20/2014 9:53 EDT Grant Purdy ND CHEMISTRY & BLOOD GAS ORDERABLES Performing Organization Address [facility] Co de Phone Number [facility] [address] [place] [address] * IBC (01/20/2014 9:11 EDT) [facility] TIBC 324 261 - 462 ug/dl [facility] 01/20/2014 9:11 EDT 01/20/2014 9:53 EDT Grant Purdy ND CHEMISTRY & BLOOD GAS ORDERABLES Performing Organization Address [facility] Co de Phone Number [facility] [address] [place] [address] * (ABNORMAL) HOMOCYSTEINE (01/20/2014 9:11 EDT) Pathologist [facility] Homocysteine 14.9(H) 4.5 - 12.4 umol/L [facility] Comment: Results may be falsely elevated if [...] range may not apply to serum results. 01/20/2014 9:11 EDT 01/20/2014 9:53 EDT Grant Purdy ND CHEMISTRY & BLOOD GAS ORDERABLES Performing Organization Address [facility] de Phone Number [facility] [address] [place] [address] * HEMOGLOBIN A1C (01/20/2014 9:11 EDT) Hemoglobin A1C 4.9 % [facility] Comment: Shortened red blood cell survival will decrease Hemoglobin A1C values. Reference Range: <5.7% Normal 5.7-6.4% Increased risk for diabetes =>6.5% Diagnostic for diabetes (if confirmed) The A1c goal for non adults in general is <7%. The A1c goal for selected patients may be significantly lower than 7% if this can be achieved without significant hypoglycemia or other adverse effects of treatment. Est Avg Glucose 94 mg/dl [facility] Comment: eAG represents the A1c result expressed as average glucose in mg/dl. 01/20/2014 9:11 EDT 01/20/2014 9:53 EDT Grant Purdy ND CHEMISTRY & BLOOD GAS ORDERABLES Performing Organization Address [facility] de Phone Number [facility] [address] [place] [address] * GGT (01/20/2014 9:11 EDT) GGT 61 15 - 73 U/L [facility] 01/20/2014 9:11 EDT 01/20/2014 9:53 EDT Grant Purdy ND CHEMISTRY & BLOOD GAS ORDERABLES Performing Organization Address [facility] de Phone Number [facility] [address] [place] [address] * (ABNORMAL) TESTOSTERONE, TOTAL AND FREE (01/20/2014 9:11 EDT) Sex Hormone Binding Globulin 17.1(L) 17.3 - 65.8 nmol/L [facility] Testosterone, Total 327 241 - 827 ng/dl [facility] Testosterone, Free 9.0 5.0 - 21.0 ng/dl [facility] Comment: Test not recommended in patients with plasma protein abnormalities. 01/20/2014 9:11 EDT 01/20/2014 9:53 EDT Grant Purdy ND CHEMISTRY & BLOOD GAS ORDERABLES Performing Organization Address [facility] de Phone Number [facility] [address] [place] [address] * FERRITIN (01/20/2014 9:11 EDT) Pathologist [facility] Ferritin 151 22 - 322 ng/mL [facility] 01/20/2014 9:11 EDT 01/20/2014 9:53 EDT Grant Purdy ND CHEMISTRY & BLOOD GAS ORDERABLES Performing Organization Address [facility] Co de Phone Number [facility] [address] [place] [address] * DHEA SULFATE (01/20/2014 9:11 EDT) Pathologist [facility] DHEA Sulfate 81 24 - 244 ug/dl [facility] 01/20/2014 9:11 EDT 01/20/2014 9:53 EDT Grant Purdy ND CHEMISTRY & BLOOD GAS ORDERABLES Performing Organization Address [facility] Co de Phone Number [facility] [address] [place] [address] * (ABNORMAL) COMPREHENSIVE METABOLIC PANEL (CMP) (01/20/2014 9:11 EDT) Potassium 5.1(H) 3.5 - 5.0 mEq/L [facility] Sodium 140 136 - 145 mEq/L [facility] Chloride 100 96 - 110 mEq/L [facility] CO2 29 24 - 32 mEq/L [facility] Total Alkaline Phosphatase 75 38 - 126 U/L [facility] Bilirubin, Total 0.9 <1.4 mg/dl [facility] AST 28 15 - 46 U/L [facility] ALT 34 21 - 72 U/L [facility] Albumin 4.5 3.4 - 4.9 g/dl [facility] Total Protein 7.4 6.5 - 8.3 g/dl [facility] Creatinine 0.83 0.66 - 1.25 mg/dl [facility] GFR, Calculated >60 >60 ml/min/1.7 3m2 [facility] BUN 16 10 - 26 mg/dl [facility] Calcium 9.5 8.5 - 10.5 mg/dl [facility] Calculated Calcium 9.4 8.5 - 10.5 mg/dl [facility] Glucose, Serum 89 70 - 100 mg/dl [facility] Fasting? YES [facility] 01/20/2014 9:11 EDT 01/20/2014 9:53 EDT Grant Purdy ND CHEMISTRY & BLOOD GAS ORDERABLES Performing Organization Address [facility] de Phone Number [facility] [address] [place] [address] * VITAMIN B12 (01/20/2014 9:11 EDT) Vitamin B-12 305 211 - 911 pg/ml [facility] 01/20/2014 9:11 EDT 01/20/2014 9:53 EDT Grant Purdy ND CHEMISTRY & BLOOD GAS ORDERABLES Performing Organization Address City/[facility] Co de Phone Number [facility] [address] [place] [address] documented in this encounter Visit Diagnoses Not on filedocumented in this encounter Care Teams Rangelands Conservation Laborer Relationship Specialty Start Date End Date Manuel Landrum MD [address] [place] [phone] PCP - General 12/30/13 02/22/16 documented as of this encounter
--- OUTSIDE RECORDS SUMMARY | 2024-03-02 02:26 | XMS_ITS | Encounter Summary ---
Author Organization [facility] Address [address] [place] [address] Care Team Providers Care Rough Rounder Machine Name Role Phone Prem Landrum MD Primary Care Provider Encounter Details Date Type Department Care Team (Latest Contact Info) Description 12/24/2013 15:32 EDT - 12/24/2013 23:59 EDT Hospital Encounter [address] [address] Manuel Landrum MD [address] [place] [phone] Discharge Disposition: Home or Self Care Social [...] Code Departure Means Destination Home or Self Custodial documented in this encounter Plan of Treatment Not on file documented as of this encounter Visit Diagnoses Not on filedocumented in this encounter Care Teams Rough Rounder Machine Relationship Specialty Start Date End Date Prem Landrum MD [address] [phone] PCP - General 04/18/11 12/29/13 documented as of this encounter
--- OUTSIDE RECORDS SUMMARY | 2024-03-02 02:26 | XMS_ITS | Encounter Summary ---
Author Organization [facility] Address [address] [place] [address] Care Team Providers Care Trading Specialist Name Role Phone Manuel Landrum MD Primary Care Provider [phone] [phone] Reason for Visit * Reason Comments Cerumen Impaction Encounter Details Date Type Department Care Team (Late st Contact Info) Description 12/30/2013 10:45 EDT Office Visit [facility] [place] [facility]- [address] [phone] Chetna Noble MD [address] [place] [address], [address] [place] [phone] Impacted cerumen (Primary Dx) Social [...] 380.4 IMPACTED CERUMEN[ICD-9-CM] documented in this encounter Progress Notes * Chetna Noble MD - 12/30/2013 1144 EDT No problems since his last visit 3 mos ago. ENT Cerumenectomy Indications for Procedure: Obstructive copious cerumen that cannot be removed safely without magnification and multiple instruments. Careful examination of the ear and removal of cerumen was done on both ears using the operating microscope and microinstruments/suction. The patient tolerated this procedure well. Complications: None Findings: both canals obstructed with cerumen, canals and TMs wnl once cerumen removed F/u in 3 mos documented in this encounter Plan of Treatment Not on file documented as of this encounter Visit Diagnoses Diagnosis Impacted cerumen- Primary documented in this encounter Discontinued Medications Medication Sig Discontinue Reason Start Date End Da te polyethylene glycol (GOLYTELY) 236-22.74-6.74 gram suspensionIndications :Special screening for malignant neoplasms, colon Follow instructions on 'colonoscopy preparation instructions' sheet. Error 09/01/2013 12/30/2013 documented as of this encounter Care Teams Trading Specialist Relationship Specialty Start Date End Date Manuel Landrum MD [address] [place] [phone] PCP - General 12/30/13 02/22/16 documented as of this encounter
--- OUTSIDE RECORDS SUMMARY | 2024-03-02 02:26 | XMS_ITS | Encounter Summary ---
Author Organization [facility] Address [address] [place] [address] Care Team Providers Care Bench Assembler Operator Name Role Phone Manuel Landrum MD Primary Care Provider [phone] Encounter Details Date Type Department Care Team (Latest Contact Info) Description 06/08/2015 18:35 EDT - 06/08/2015 18:36 EDT Hospital Encounter [address] [address] Manuel Landrmu MD [address] [place] [phone] Discharge Disposition: Home or Self Care Social [...] Diagnosis Comments CT RENAL COLIC WO CONTRAST 08/16/2015 18:59 EST documented in this encounter Results * CT RENAL COLIC (08/16/2015 18:59 EST) Anatomical Region Laterality Modality Other 08/16/2015 18:5 9 EST 08/17/2015 9:21 EST Narrative 08/17/2015 9:[address] RENAL COLIC ??08/16/2015 6:59 PM Signs and Symptoms/Comments: right flank pain. Technique: Axial CT images obtained from abdomen immediately superior to level of kidneys through the pelvis without administration of contrast of any kind. Sagittal and coronal reformats generated. Comparison: CT renal colic from 12/24/13 Findings: Kidneys and ureters: There are no radiopaque calculi identified within the kidneys, ureters, or urinary bladder. No hydroureteronephrosis or perinephric stranding bilaterally. Bladder: The urinary bladder is within normal limits. Prostate, seminal vesicles: The prostate gland and seminal vesicles are unremarkable. Included lung bases: The visible portions of the lung bases are within normal limits. Unenhanced liver and spleen, as far as included: The imaged portions of the unenhanced liver and spleen are unremarkable. Gallbladder, pancreas adrenal glands: The decompressed gallbladder is within normal limits. The pancreas and adrenal glands are unremarkable. Bowel: There is no evidence of bowel obstruction or bowel edema. The appendix is normal. There are a few scattered sigmoid diverticula without evidence of diverticulitis. Peritoneal cavity: No free air or free fluid is identified within the abdomen or pelvis. Abdominal wall: The abdominal wall is intact. Lymphovascular: Calcific atherosclerosis is identified in the abdominal aorta. There are no pathologically enlarged lymph nodes identified. Musculoskeletal: Mild degenerative changes of the lumbar spine are noted. The visible osseous structures are otherwise unremarkable. Impression: 1. No radiopaque calculi identified. No hydroureteronephrosis or perinephric stranding bilaterally. 2. Normal appendix. 3. Sigmoid diverticulosis without evidence of diverticulitis. 4. Mild degenerative changes of lumbar spine. ?? I have personally reviewed the images and the above interpretation and agree with the findings. Procedure Note Heri Jean Baptiste MD - 08/17/2015 CT RENAL COLIC 08/16/2015 6:59 PM Signs and Symptoms/Comments: right flank pain. Technique: Axial CT images obtained from abdomen immediately superior to level of kidneys through the pelvis without administration of contrast of any kind. Sagittal and coronal reformats generated. Comparison: CT renal colic from 12/24/13 Findings: Kidneys and ureters: There are no radiopaque calculi identified within the kidneys, ureters, or urinary bladder. No hydroureteronephrosis or perinephric stranding bilaterally. Bladder: The urinary bladder is within normal limits. Prostate, seminal vesicles: The prostate gland and seminal vesicles are unremarkable. Included lung bases: The visible portions of the lung bases are within normal limits. Unenhanced liver and spleen, as far as included: The imaged portions of the unenhanced liver and spleen are unremarkable. Gallbladder, pancreas adrenal glands: The decompressed gallbladder is within normal limits. The pancreas and adrenal glands are unremarkable. Bowel: There is no evidence of bowel obstruction or bowel edema. The appendix is normal. There are a few scattered sigmoid diverticula without evidence of diverticulitis. Peritoneal cavity: No free air or free fluid is identified within the abdomen or pelvis. Abdominal wall: The abdominal wall is intact. Lymphovascular: Calcific atherosclerosis is identified in the abdominal aorta. There are no pathologically enlarged lymph nodes identified. Musculoskeletal: Mild degenerative changes of the lumbar spine are noted. The visible osseous structures are otherwise unremarkable. Impression: 1. No radiopaque calculi identified. No hydroureteronephrosis or perinephric stranding bilaterally. 2. Normal appendix. 3. Sigmoid diverticulosis without evidence of diverticulitis. 4. Mild degenerative changes of lumbar spine. I have personally reviewed the images and the above interpretation and agree with the findings. Manuel Landrum MD IMG CT ORDERABLES documented in this encounter Visit Diagnoses Not on filedocumented in this encounter Care Teams Bench Assembler Operator Relationship Specialty Start Date End Date Manuel Landrum MD [address] [place] [phone] PCP - General 12/30/13 02/22/16 documented as of this encounter
--- OUTSIDE RECORDS SUMMARY | 2024-03-02 02:26 | XMS_ITS | Encounter Summary ---
Author Organization [facility] Address [address] [place] [address] Care Team Providers Care Bankruptcy Assistant Name Role Phone Rosa M Israel MD Primary Care Provider Encounter Details Date Type Department Care Team (Late st Contact Info) Description 09/16/2013 9:09 EST - 09/16/2013 11:23 EST Hospital Encounter [facility] Endoscopy Outpatient [address] [place] [address] Rosa M Hearn MD [address] [facility], [facility] [address] [place] [address] Discharge Disposition: Home or Self [...] Sign Reading Time Taken Comments Blood Pressure 122/79 09/16/2013 1102 EST Pulse - - Temperature 35.6 ??C (96.1 ??F) 09/16/2013 1036 EST Respiratory Rate 16 09/16/2013 1102 EST Oxygen Saturation 95% 09/16/2013 1102 EST Inhaled Oxygen Concentration - - Weight 79.4 kg (175 lb) 09/16/2013 0932 EST Height 177.8 cm (5' 10) 09/16/2013 0932 EST Body Mass Index 25.11 09/16/2013 0932 EST documented in this encounter Medications at Time [...] documented in this encounter H&P Notes * Rosa M Hearn MD - 09/16/2013 1009 EST Sedation for Procedure History & Physical Date: 09/16/2013 Time: 10:09 Location: [address] Planned Procedure: Colonoscopy Chief Complaint/Indications for Procedure: screen History Previous Complication with Sedation and/or Anesthesia? No Allergies: No Known Allergies Current Medications: (Not in a hospital admission) Past Medical History: History reviewed. No pertinent past medical history. Social History: Past Surgical History Procedure Laterality Date ??? Facial cosmetic surgery Had a lesion removed just above lip on 10/02/10 ??? Tonsillectomy History Substance Use Topics ??? Smoking status: Former Smoker ??? Smokeless tobacco: Never Used Comment: Quit as a teenager ??? Alcohol Use: 25.0 oz/week 5 Glasses of wine per week Family History: Family History Problem Relation Age of Onset ??? Prostate Cancer Brother 59 Review of Systems as pertinent: Physical Exam Vital Signs: BP 150/90 Temp(Src) 35.8 ??C (96.4 ??F) (Tympanic) Resp 16 Ht 177.8 cm (70) Wt 79.379 kg (175 lb) BMI 25.11 kg/m2 SpO2 98% Heart Examination: Cardiac Regularity: Regular Respiratory Examination: Respiratory Pattern: Regular Breath Sounds Right: Clear Breath Sounds Left: Clear Additional physical exam related to the proposed procedure, patient activity, disease state and treatment as pertinent: Assessment Previous complications with sedation or anesthesia?: No Airway Concerns: None Anesthesia Classification: ASA 2 Fasting Time: Time of last liquid intake: 0730 Date of Last Liquid Intake: 09/16/13 Time of last solid intake: 1800 Date of last solid intake: 09/14/13 Patient Appropriate Candidate for Planned Sedation?: Yes documented in this encounter Procedure Notes * [employer] [employer], SCAN 2 - 09/17/2013 0038 ESTAssociated Order(s): PROCEDURE REPORTS - SCANNED documented in this encounter Plan of Treatment Not on file documented as of this encounter Procedures Procedure Name Priority Date/Time Associated Diagnosis Comments RAD US CHRISTIANO BREAST UNILATERAL - ONE BREAST 11/11/2013 11:29 EDT MARGARITA DX BILATERAL EMERGENCY 2 BREAST 11/11/2013 10:49 EDT PROCEDURE REPORTS - SCANNED 09/17/2013 0:38 EST SURGICAL PATHOLOGY Routine 09/16/2013 11 :13 EST documented in this encounter Results * RAD US CHRISTIANO BREAST UNILATERAL - ONE BREAST (11/11/2013 11:29 EDT) Anatomical Region Laterality Modality Other 11/11/2013 11:2 9 EDT 11/11/2013 15:50 EDT Narrative 11/11/2013 15:50 EDT MARGARITA DX BILATERAL ??EMERGENCY 2 BREAST, RAD US CHRISTIANO BREAST UNILATERAL - ONE BREAST (25 MIN DURATION) ??11/11/2013 10:49 AM Clinical History/Comments: soft tissue swelling left lateral chest wall. Findings left breast: Digital mammography was obtained in standard CC and MLO projections. In addition, spot magnification views were obtained in LMAT and LMLM views. This examination was interpreted with the aid of computer-assisted detection (CAD) technology. ??The breasts are entirely fat. No concerning masses or calcifications are seen. Specifically, no abnormalities are identified in the area of reported pain within the lateral breast. Grayscale and color Doppler imaging of the left breast was obtained. No abnormalities are seen. Findings right breast: Digital mammography was obtained in standard CC and MLO projections. This examination was interpreted with the aid of computer-assisted detection (CAD) technology. ??The breast is entirely fat. No suspicious masses or calcifications are seen. Impression both breasts: BI-RADS Category Assessment 1: Negative. Overall impression and recommendations: BI-RADS Category Assessment 1: Negative. No abnormalities are identified in either breast. Specifically, no abnormality is identified to explain the reported left breast pain. Clinical followup is recommended. Any decision to biopsy is based on clinical grounds. The patient was told the results and recommendations following the study by the shake out worker. The patient will be notified of her breast imaging results via a lay letter from Radiology. Radiology will contact the patient directly regarding any findings which require additional imaging (Category 0) at this time. I have personally reviewed the images and the above interpretation and agree with the findings. Procedure Note Krystian Gonzalez MD - 11/11/2013 MARGARITA DX BILATERAL EMERGENCY 2 BREAST, RAD US CHRISTIANO BREAST UNILATERAL - ONE BREAST (25 MIN DURATION) 11/11/2013 10:49 AM Clinical History/Comments: soft tissue swelling left lateral chest wall. Findings left breast: Digital mammography was obtained in standard CC and MLO projections. In addition, spot magnification views were obtained in LMAT and LMLM views. This examination was interpreted with the aid of computer-assisted detection (CAD) technology. The breasts are entirely fat. No concerning masses or calcifications are seen. Specifically, no abnormalities are identified in the area of reported pain within the lateral breast. Grayscale and color Doppler imaging of the left breast was obtained. No abnormalities are seen. Findings right breast: Digital mammography was obtained in standard CC and MLO projections. This examination was interpreted with the aid of computer-assisted detection (CAD) technology. The breast is entirely fat. No suspicious masses or calcifications are seen. Impression both breasts: BI-RADS Category Assessment 1: Negative. Overall impression and recommendations: BI-RADS Category Assessment 1: Negative. No abnormalities are identified in either breast. Specifically, no abnormality is identified to explain the reported left breast pain. Clinical followup is recommended. Any decision to biopsy is based on clinical grounds. The patient was told the results and recommendations following the study by the shake out worker. The patient will be notified of her breast imaging results via a lay letter from Radiology. Radiology will contact the patient directly regarding any findings which require additional imaging (Category 0) at this time. I have personally reviewed the images and the above interpretation and agree with the findings. Manuel Israel MD IMG US ORDERABLES * [facility]ARG[facility]ITA DX BILATERAL EMERGENCY 2 BREAST (11/11/2013 10:49 EDT) Anatomical Region Laterality Modality Other 11/11/2013 10:4 9 EDT 11/11/2013 15:50 EDT Narrative 11/11/2013 15:50 EDT MARGARITA DX BILATERAL ??EMERGENCY 2 BREAST, RAD US CHRISTIANO BREAST UNILATERAL - ONE BREAST (25 MIN DURATION) ??11/11/2013 10:49 AM Clinical History/Comments: soft tissue swelling left lateral chest wall. Findings left breast: Digital mammography was obtained in standard CC and MLO projections. In addition, spot magnification views were obtained in LMAT and LMLM views. This examination was interpreted with the aid of computer-assisted detection (CAD) technology. ??The breasts are entirely fat. No concerning masses or calcifications are seen. Specifically, no abnormalities are identified in the area of reported pain within the lateral breast. Grayscale and color Doppler imaging of the left breast was obtained. No abnormalities are seen. Findings right breast: Digital mammography was obtained in standard CC and MLO projections. This examination was interpreted with the aid of computer-assisted detection (CAD) technology. ??The breast is entirely fat. No suspicious masses or calcifications are seen. Impression both breasts: BI-RADS Category Assessment 1: Negative. Overall impression and recommendations: BI-RADS Category Assessment 1: Negative. No abnormalities are identified in either breast. Specifically, no abnormality is identified to explain the reported left breast pain. Clinical followup is recommended. Any decision to biopsy is based on clinical grounds. The patient was told the results and recommendations following the study by the shake out worker. The patient will be notified of her breast imaging results via a lay letter from Radiology. Radiology will contact the patient directly regarding any findings which require additional imaging (Category 0) at this time. I have personally reviewed the images and the above interpretation and agree with the findings. Procedure Note Krystian Gonzalez MD - 11/11/2013 [facility] DX BILATERAL EMERGENCY 2 BREAST, RAD US CHRISTIANO BREAST UNILATERAL - ONE BREAST (25 MIN DURATION) 11/11/2013 10:49 AM Clinical History/Comments: soft tissue swelling left lateral chest wall. Findings left breast: Digital mammography was obtained in standard CC and MLO projections. In addition, spot magnification views were obtained in LMAT and LMLM views. This examination was interpreted with the aid of computer-assisted detection (CAD) technology. The breasts are entirely fat. No concerning masses or calcifications are seen. Specifically, no abnormalities are identified in the area of reported pain within the lateral breast. Grayscale and color Doppler imaging of the left breast was obtained. No abnormalities are seen. Findings right breast: Digital mammography was obtained in standard CC and MLO projections. This examination was interpreted with the aid of computer-assisted detection (CAD) technology. The breast is entirely fat. No suspicious masses or calcifications are seen. Impression both breasts: BI-RADS Category Assessment 1: Negative. Overall impression and recommendations: BI-RADS Category Assessment 1: Negative. No abnormalities are identified in either breast. Specifically, no abnormality is identified to explain the reported left breast pain. Clinical followup is recommended. Any decision to biopsy is based on clinical grounds. The patient was told the results and recommendations following the study by the shake out worker. The patient will be notified of her breast imaging results via a lay letter from Radiology. Radiology will contact the patient directly regarding any findings which require additional imaging (Category 0) at this time. I have personally reviewed the images and the above interpretation and agree with the findings. Manuel Israel MD IMG MAMMOGRAPHY O RDERABLES * PROCEDURE REPORTS - SCANNED (09/17/2013 0:38 EST) 09/17/2013 0:38 EST Narrative 09/17/2013 2:14 EST Procedure Note [employer], SCAN 2 - 09/17/2013 0:38 EST Scan 2 Taker Out PROCEDURE/MINOR KANWAL GICAL ORDERABLES * SURGICAL PATHOLOGY (09/16/2013 11:13 EST) Pathology Report: SURGICAL PATHOLOGY REPORT Reports generated via electronic interface contain original data; however they are lacking the format of the original report. Caution should be taken when reading/interpreti ng unformatted reports. Name: ? LUIS CLAYTON Kedar ? Accession #: ? [id number] ? : ? 1950 (Age: 62) ??M ? Collect Date: ? 09/16/2013 ? Location: ? ENDOP ? Receive Date: ? 09/16/2013 ? Provider: ROSA M HEARN MD Copy to: ROSA M ISRAEL MD ? Final Pathologic Diagnosis: COLON, ASCENDING COLON POLYP, BIOPSY: - ??Tubular adenoma (1 piece); no high-grade dysplasia. Document reviewed and electronically signed by: Raul Xiong MD Report ??Date: 09/17/2013 20:02 By the signature above, the attending physician certifies that he/she has personally conducted a gross and/or microscopic examination of the described specimens and rendered or confirmed the above diagnosis. Specimen(s) Received: Ascending polyp Clinical History: Ascending polyp Gross Description: ? Received in formalin labelled with proper patient identification (initials D, A) and ascending colon polyp is a single pink-wilson tissue fragment (0.4 x 0.3 x 0.3 cm). Submitted intact in 1. Shanelle Durán 09/16/2013 12:30 PM End of Report RACHEL CALL 09/16/2013 11:1 3 EST 09/16/2013 11:13 EST Rosa M Hearn MD PATHOLOGY ORDERABLE S RACHEL CALL [address] [place] [address] documented in this encounter Visit Diagnoses Not on filedocumented in this encounter Administered Medications Inactive Administered Medications - up to 3 most recent administrations Medication Order MAR Action Action Date Dose Rate Site meperidine (PF) (DEMEROL) 100 mg/mL injection 25-200 mg 25-200 mg, intravenous, ONCE PRN, 1 dose, Starting on Sat09/16/13 at 0926, Until Sat09/16/13 at 1024, Other, sedation, Routine, Intraprocedure Given 09/16/2013 10:24 EST 75 mg midazolam (PF) (VERSED) 1 mg/mL injection 1-10 mg 1-10 mg, intravenous, ONCE PRN, 1 dose, Starting on Sat09/16/13 at 0926, Until Sat09/16/13 at 1025, Sedation, Routine, Intraprocedure Given 09/16/2013 10:25 EST 3 mg sodium chloride 0.9 % (NS) infusion 30 mL/hr, intravenous, CONTINUOUS, Starting on Sat09/16/13 at 0945, Until Sat09/16/13 at 1325, Routine, Preprocedure New Bag 09/16/2013 10:04 EST 30 mL/hr 30 mL/hr documented in this encounter Orders Medications Ordered That Joe ht Not Have Been Administered Count Last Ordered Date First Ordered Date lactated ringers (LR) infusion 1 09/16/2013 Transfer Count Last Ordered Date First Orde red Date NOTIFY PPS OF DISCHARGE COMPLETE 1 09/16/19 14 Discharge Count Last Ordered Date First Orde red Date DISCHARGE PATIENT 1 09/16/2013 documented in this encounter Care Teams Bankruptcy Assistant Relationship Specialty Start Date End Date Rosa M Israel MD [address] [phone] PCP - General 04/18/11 12/29/13 documented as of this encounter
--- OUTSIDE RECORDS SUMMARY | 2024-03-02 02:26 | XMS_ITS | Encounter Summary ---
Author Organization [facility] Address [address] [place] [address] Care Team Providers Care Quartz Mounter Name Role Phone Manuel Landrum MD Primary Care Provider [phone] Encounter Details Date Type Department Care Team (Late st Contact Info) Description 01/20/2014 Phlebotomy Only [facility] [place] [address] [place] [address] Sanitarian, Outpatient Social History Tobacco Use Types Packs/Day [...] on filedocumented in this encounter Care Teams Quartz Mounter Relationship Specialty Start Date End Date Manuel Landrum MD [address] [place] [phone] PCP - General 12/30/13 02/22/16 documented as of this encounter
--- OUTSIDE RECORDS SUMMARY | 2024-03-02 02:26 | XMS_ITS | Encounter Summary ---
Author Organization [facility] Address [address] [place] [address] Care Team Providers Care Echo Technologist Name Role Phone Prem Landrum MD Primary Care Provider Encounter Details Date Type Department Care Team (Latest Contact Info) Description 11/11/2013 9:50 EDT - 11/11/2013 23:59 EDT Hospital Encounter [facility] [address] [place] [address] Manuel Landrum MD [address] [place] [phone] Discharge Disposition: Home or Self Care Social [...] Code Departure Means Destination Home or Self Shelter documented in this encounter Plan of Treatment Not on file documented as of this encounter Visit Diagnoses Not on filedocumented in this encounter Care Teams Echo Technologist Relationship Specialty Start Date End Date Prem Landrum MD [address] [phone] PCP - General 04/18/11 12/29/13 documented as of this encounter
--- OUTSIDE RECORDS SUMMARY | 2024-03-02 02:26 | XMS_ITS | Encounter Summary ---
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
--- OUTSIDE RECORDS SUMMARY | 2024-03-02 02:26 | XMS_ITS | Encounter Summary ---
Author Organization [facility] Address [address] [place] [address] Care Team Providers Care License Examiner Name Role Phone Manuel Landrum MD Primary Care Provider [phone] Encounter Details Date Type Department Care Team (Late st Contact Info) Description 01/28/2015 Orders Only Non [facility] Grant Purdy, JUNIOR [address] [place] [phone] Elevated C-reactive protein (CRP) (Primary Dx); Disturbances of sulphur-bearing amino-acid metabolism; Other malaise and fatigue; Diverticulosis of colon (without mention of hemorrhage); Unspecified vitamin D deficiency Social History Tobacco Use Types Packs/Day Years [...] Diagnoses Diagnosis Elevated C-reactive protein (CRP)- Primary Disturbances of sulphur-bearing amino-acid metabolism Other malaise and fatigue Diverticulosis of colon (without mention of hemorrhage) Unspecified vitamin D deficiency documented in this encounter Care Teams License Examiner Relationship Specialty Start Date End Date Manuel Landrum MD [address] [place] [address] [address] [place] [phone] PCP - General 12/30/13 02/22/16 documented as of this encounter
--- OUTSIDE RECORDS SUMMARY | 2024-03-02 02:26 | XMS_ITS | Encounter Summary ---
Author Organization [facility] Address [address] [place] [address] Care Team Providers Care Rn Bsn Name Role Phone Manuel Landrum MD Primary Care Provider [phone] Encounter Details Date Type Department Care Team (Late st Contact Info) Description 08/09/2015 Results Only [facility] [phone] Manuel Landrum MD [address] [place] [phone] Social History Tobacco Use Types Packs/Day [...] Name Priority Date/Time Associated Diagnosis Comments URINE SEDIMENT (MICRO) WITHOUT REFLEX TO CULTURE Routine 08/09/2015 14:00 EST documented in this encounter Results * URINE MICROSCOPIC ONLY (08/09/2015 14:00 EST) WBC, UA None seen 0 - 5 /HPF 08/09/2015 18:01 EST [facility] RBC, UA less than 1 0 - 5 /HPF 08/09/2015 18:01 EST [facility] Squam Epithel, UA None seen None seen /HPF 08/09/2015 18:01 [facility] Renal Epithel, UA None seen None seen /HPF 08/09/2015 18:01 [facility] Bacteria, UA None seen None seen /HPF 08/09/2015 18:01 [facility] Crystals, UA None seen /HPF 08/09/2015 18:01 [facility] Hyaline Casts, UA None seen /LPF 08/09/2015 18:01 [facility] UA Comment Microscopic results 08/09/2015 17:40 [facility] Comment: are unreliable on urines unrefrig >2hrs or refrig >8hrs. URINE / Unknown 08/09/2015 1 4:00 EST 08/09/2015 17:40 EST Manuel Landrum MD URINALYSIS ORDERA BLES [facility] [address] [place] [address] documented in this encounter Visit Diagnoses Not on filedocumented in this encounter Care Teams Rn Bsn Relationship Specialty Start Date End Date Manuel Landrum MD [address] [place] [address] [address] [place] [phone] PCP - General 12/30/13 02/22/16 documented as of this encounter
--- OUTSIDE RECORDS SUMMARY | 2024-03-02 02:26 | XMS_ITS | Encounter Summary ---
Author Organization [facility] Address [address] [place] [address] Care Team Providers Care Student Support Counselor Name Role Phone Manuel Landrum MD Primary Care Provider +1 [phone] Encounter Details Date Type Department Care Team (Late st Contact Info) Description 08/10/2015 Phlebotomy Only [facility] [address] [place] [address] Milking Worker, Outpatient Elevated C-reactive protein (CRP); Disorders of sulfur-bearing amino-acid metabolism, unspecified (CMS-HCC) [...] Associated Diagnosis Comments VITAMIN D (25,OH) Routine 08/10/2015 8:1 8 EST Elevated C-reactive protein (CRP) Disorders of sulfur-bearing amino-acid metabolism, unspecified (CMS-HCC) (HCC-CMS) Malaise and fatigue Diverticulosis of large intestine without perforation or abscess without bleeding Vitamin D deficiency, unspecified COMPLETE BLOOD COUNT AND DIFFERENTIAL Routine 08/10/2015 8:18 EST Elevated C-reactive protein (CRP) Disorders of sulfur-bearing amino-acid metabolism, unspecified (CMS-HCC) (HCC-CMS) Malaise and fatigue Diverticulosis of large intestine without perforation or abscess without bleeding Vitamin D deficiency, unspecified HIGH SENSITIVITY C-REACTIVE PROTEIN (CARDIOVASCULAR DISEASE) Routine 08/10/2015 8:18 EST Elevated C-reactive protein (CRP) Disorders of sulfur-bearing amino-acid metabolism, unspecified (CMS-HCC) (HCC-CMS) Malaise and fatigue Diverticulosis of large intestine without perforation or abscess without bleeding Vitamin D deficiency, unspecified HOMOCYSTEINE Routine 08/10/2015 8:18 EST Elevated C-reactive protein (CRP) Disorders of sulfur-bearing amino-acid metabolism, unspecified (CMS-HCC) (HCC-CMS) Malaise and fatigue Diverticulosis of large intestine without perforation or abscess without bleeding Vitamin D deficiency, unspecified FOLATE Routine 08/10/2015 8:18 EST Elevated C-reactive protein (CRP) Disorders of sulfur-bearing amino-acid metabolism, unspecified (CMS-HCC) (HCC-CMS) Malaise and fatigue Diverticulosis of large intestine without perforation or abscess without bleeding Vitamin D deficiency, unspecified VITAMIN B12 Routine 08/10/2015 8:18 EST Elevated C-reactive protein (CRP) Disorders of sulfur-bearing amino-acid metabolism, unspecified (CMS-HCC) (HCC-CMS) Malaise and fatigue Diverticulosis of large intestine without perforation or abscess without bleeding Vitamin D deficiency, unspecified documented in this encounter Results * (ABNORMAL) HOMOCYSTEINE (08/10/2015 8:18 EST) [facility] Homocysteine 14.5(H) 4.5 - 12.4 umol/L 08/10/2015 10:39 EST [facility] Comment: Results may be [...] 08/10/2015 8:18 EST 08/10/2015 8:48 EST Grant Stanleyrik PACHECO CHEMISTRY & BLOOD GAS ORDERABLES [facility] [address] [place] [address] * HEMAGRAM AND DIFFERENTIAL (08/10/2015 8:18 EST) WBC 6.34 4.0 - 10.4 K/cmm 08/10/2015 8:59 [facility] RBC 5.19 4.36 - 5.78 M/cmm 08/10/2015 8:59 [facility] Hemoglobin 16.4 13.8 - 17.3 gm/dl 08/10/2015 8:59 [facility] HCT 48.1 39.5 - 50.2 % 08/10/2015 8:59 [facility] MCV 93 81 - 95 fl 08/10/2015 8:59 [facility] MCH 31.5 27.6 - 33.0 pg 08/10/2015 8:59 [facility] MCHC 34.0 32.8 - 36.4 gm/dl 08/10/2015 8:59 [facility] RDW-CV 12.8 11.8 - 14.1 % 08/10/2015 8:59 [facility] RDW-SD 42.0 36.5 - 45.9 fl 08/10/2015 8:59 [facility] PLT 258 141 - 320 K/cmm 08/10/2015 8:59 [facility] MPV 8.5 7.5 - 11.2 fl 08/10/2015 8:59 [facility] % Neutrophils 61.9 45.5 - 79.7 % 08/10/2015 8:59 [facility] % Lymphocytes 25.0 15.0 - 46.8 % 08/10/2015 8:59 [facility] % Monocytes 10.2 1.8 - 12.0 % 08/10/2015 8:59 [facility] % Eosinophils 2.2 0.6 - 6.9 % 08/10/2015 8:59 [facility] % Basophils 0.7 0.2 - 1.4 % 08/10/2015 8:59 [facility] ABS Neutrophils 3.93 2.20 - 8.85 K/cmm 08/10/2015 8:59 [facility] ABS Lymphs 1.59 1.09 - 3.30 K/cmm 08/10/2015 8:59 [facility] ABS Monocytes 0.65 0.1 - 0.8 K/cmm 08/10/2015 8:59 [facility] ABS Eosinophils 0.14 0.03 - 0.61 K/cmm 08/10/2015 8:59 [facility] ABS Basophils 0.04 0.01 - 0.11 K/cmm 08/10/2015 8:59 [facility] Type of Diff: Automated 08/10/2015 8:59 [facility] Blood specimen (specimen) BLOOD SPECIMEN / Unknown 08/10/2015 8:18 EST 08/10/2015 8:46 EST Grant Purdy ND PACKAGES & DNA PRO BE ORDERABLES Performing Organization Address City/State/[facility] Co de Phone Number [facility] [address] [place] [address] * (ABNORMAL) VITAMIN D (25,OH) (08/10/2015 8:18 EST) 25OH Vitamin D Tot 27.2(L) 30 - 100 ng/ml 08/10/2015 12:44 [facility] Comment: Reference Range: Deficient = <10 ng/ml Insufficient = 10-30 ng/ml Sufficient = 30-100 ng/ml Toxic = >100 ng/ml Blood specimen (specimen) BLOOD SPECIMEN / Unknown 08/10/2015 8:18 EST 08/10/2015 8:46 EST Grant Purdy ND CHEMISTRY & BLOOD GAS ORDERABLES Performing Organization Address [facility]/ZIP Co de Phone Number [facility] [address] [place] [address] * VITAMIN B12 (08/10/2015 8:18 EST) Vitamin B-12 248 211 - 911 pg/ml 08/10/2015 10:22 EST [facility] Blood specimen (specimen) BLOOD SPECIMEN / Unknown 08/10/2015 8:18 EST 08/10/2015 8:46 EST Grant Purdy ND CHEMISTRY & BLOOD GAS ORDERABLES Performing Organization Address [facility] Co de Phone Number [facility] [address] [place] [address] * C-REACTIVE PROTEIN HIGH SENSITIVITY (08/10/2015 8:18 EST) [facility] High Sensitivity CRP 3.0 mg/L 08/10/2015 14:38 EST [facility] Comment: Reference Range: <1.0 mg/L Low risk 1.0-3.0 mg/L Average risk >3.0 mg/L High risk >10.0 mg/L Acute inflammation Blood specimen (specimen) BLOOD SPECIMEN / Unknown 08/10/2015 8:18 EST 08/10/2015 8:46 EST Grant Purdy ND CHEMISTRY & BLOOD GAS ORDERABLES Performing Organization Address [facility] Co de Phone Number [facility] [address] [place] [address] * (ABNORMAL) FOLATE (08/10/2015 8:18 EST) Folate 19.8(H) 2.8 - 18.0 ng/ml 08/10/2015 10:22 EST [facility] Comment: Deficient: ??Less than 3.4 ng/mL Indeterminate: ??3.4-5.4 ng/mL Normal: ??Greater than 5.4 ng/mL Blood specimen (specimen) BLOOD SPECIMEN / Unknown 08/10/2015 8:18 EST 08/10/2015 8:46 EST Grant Purdy ND CHEMISTRY & BLOOD GAS ORDERABLES [facility] [address] [place] [address] documented in this encounter Visit Diagnoses Diagnosis Elevated C-reactive protein (CRP) Disorders of sulfur-bearing amino-acid metabolism, unspecified ([facility]) Malaise and fatigue Other malaise and fatigue Diverticulosis of large intestine without perforation or abscess without bleeding Diverticulosis of colon (without mention of hemorrhage) Vitamin D deficiency, unspecified documented in this encounter Care Teams Student Support Counselor Relationship Specialty Start Date End Date Manuel Landrum MD [address] [place] [phone] PCP - General 12/30/13 02/22/16 documented as of this encounter
--- OUTSIDE RECORDS SUMMARY | 2024-03-02 02:26 | XMS_ITS | Encounter Summary ---
Author Organization [facility] Address [address] [place] [address] Care Team Providers Care Track Oiler Name Role Phone Ya Yee MD Primary Care Provider +1 [phone] Encounter Details Date Type Department Care Team (Latest Contact Info) Description 07/05/2016 9:28 EST - 07/05/2016 23:59 [facility] Hospital Encounter [place] [address] [place] [address] [place] [address] [facility] [address] [place] [address] Unknown, Provider, WAITING, TO BE ADDED Discharge Disposition: Auto Discharge Social History Tobacco [...] Procedure Name Priority Date/Time Associated Diagnosis Comments CERVICAL SPINE W/FLEX-EXT VIEW 07/05/2016 11:50 EST documented in this encounter Results * CERVICAL SPINE W/FLEX-EXT VIEW (07/05/2016 11:50 EST) Anatomical Region Laterality Modality Other 07/05/2016 11:5 0 EST 09/03/2016 13:21 EST Narrative 07/07/2016 9:49 EST Addendum Begins Addendum: The 2nd sentence in the findings paragraph should read as follows: There is mild disc space narrowing at C4-5 and slightly more severe disc space narrowing at C5-6 with moderate disc space narrowing at C6-C7. Addendum Ends CERVICAL SPINE W/FLEX-EXT VIEW ??07/05/2016 11:50 AM Signs and Symptoms/Comments: Signs of mild-severe oa and needs to establish safety before CMT work in neck area. Comparison: None. TECHNIQUE: Upright AP and neutral lateral, lateral flexion and extension, bilateral oblique and odontoid views of the cervical spine were obtained. FINDINGS: The cervical spine appears in normal alignment in the neutral position. There is mild disc space narrowing at C4-5 and slightly more severe disc space narrowing at C5-6 with moderate to space narrowing at C6-C7. Spondylosis is present; most prominent at C5-C6 and C6-C7. There is no evidence of instability on flexion or extension. Oblique views demonstrate narrowing of the intervertebral neural foramina, most prominent at C3-C4 and C4-C5 on the left and C3-C4, C4-C5 and C5-C6 on the right. Multilevel degenerative changes are present at the uncovertebral joints. IMPRESSION: Extensive degenerative change within the cervical spine. Portions of this document may have been prepared with speech recognition software or keyboard senior datastage developer techniques. Minor irregularities or keyboarding misprints may be present. Procedure Note Radha Parker MD - 09/03/2016 Addendum Begins Addendum: The 2nd sentence in the findings paragraph should read as follows: There is mild disc space narrowing at C4-5 and slightly more severe disc space narrowing at C5-6 with moderate disc space narrowing at C6-C7. Addendum Ends CERVICAL SPINE W/FLEX-EXT VIEW 07/05/2016 11:50 AM Signs and Symptoms/Comments: Signs of mild-severe oa and needs to establish safety before CMT work in neck area. Comparison: None. TECHNIQUE: Upright AP and neutral lateral, lateral flexion and extension, bilateral oblique and odontoid views of the cervical spine were obtained. FINDINGS: The cervical spine appears in normal alignment in the neutral position. There is mild disc space narrowing at C4-5 and slightly more severe disc space narrowing at C5-6 with moderate to space narrowing at C6-C7. Spondylosis is present; most prominent at C5-C6 and C6-C7. There is no evidence of instability on flexion or extension. Oblique views demonstrate narrowing of the intervertebral neural foramina, most prominent at C3-C4 and C4-C5 on the left and C3-C4, C4-C5 and C5-C6 on the right. Multilevel degenerative changes are present at the uncovertebral joints. IMPRESSION: Extensive degenerative change within the cervical spine. Portions of this document may have been prepared with speech recognition software or keyboard senior datastage developer techniques. Minor irregularities or keyboarding misprints may be present. To Be Added Waiting MD [facility] ORDERABLES documented in this encounter Visit Diagnoses Not on filedocumented in this encounter Care Teams Track Oiler Relationship Specialty Start Date End Date Ya Yee MD [address] [place] [phone] PCP - General 02/23/16 10/02/21 documented as of this encounter
--- OUTSIDE RECORDS SUMMARY | 2024-03-02 02:26 | XMS_ITS | Encounter Summary ---
Author Organization [facility] Address [address] [place] [address] Care Team Providers Care Windows Security Engineer Name Role Phone Prem Landrum MD Primary Care Provider [phone] Encounter Details Date Type Department Care Team (Late st Contact Info) Description 09/25/2013 Orders Only [facility] Gastroenterology - [address] [address] Prem Hearn MD [address] [place] [address], [address] [place] [phone] Social History Tobacco Use Types Packs/Day Years [...] Date/Time Associated Diagnosis Comments COLONOSCOPY PROCEDURE Routine 09/16/2013 documented in this encounter Results * COLONOSCOPY (09/16/2013) Colonoscopy [facility] Comment:colo f/u in 5 years Colonoscopy, External [facility] Anatomical Region Laterality Modality Endoscopy 09/16/2013 Historical Provider GI PROCEDURE ORDE RABLES documented in this encounter Visit Diagnoses Not on filedocumented in this encounter Care Teams Windows Security Engineer Relationship Specialty Start Date End Date Prem Landrum MD [address] [phone] PCP - General 04/18/11 12/29/13 documented as of this encounter
--- OUTSIDE RECORDS SUMMARY | 2024-03-02 02:26 | XMS_ITS | Encounter Summary ---
Author Organization [facility] Address [address] [place] [address] Care Team Providers Care Director Television News Name Role Phone Manuel Landrum MD Primary Care Provider [phone] Reason for Referral * (Routine/Next Available) - Closed Specialty Diagnoses / Procedures [facility]erred To Contact Diagnoses SNHL (sensorineural hearing loss) Procedures HEARING EVALUATION Chetna Noble MD [address] [place] [phone] Referral ID Status Reason Start Date Expiration Date Visits Re quested Visits Authorized [id number] Closed 06/02/2014 1 1 Reason for Visit * Reason Comments Cerumen Impaction Encounter Details Date Type Department Care Team (Late st Contact Info) Description 06/02/2014 10:45 EDT Office Visit [facility] ENT- [address] [address] Chetna Noble MD [address] [place] [phone] Impacted cerumen (Primary Dx); SNHL (sensorineural hearing loss) Social History Tobacco Use Types Packs/Day Years [...] of this encounter Progress Notes * Chetna Nobel MD - 06/02/2014 1213 EDT Pt feel that hearing may be decreasing. He would like to have it checked today. No other problems. ENT Cerumenectomy Indications for Procedure: Obstructive copious cerumen that cannot be removed safely without magnification and multiple instruments. Careful examination of the ear and removal of cerumen was done on both ears using the operating microscope and microinstruments/suction. The patient tolerated this procedure well. Complications: None Findings: canals obstructed with cerumen, TMs and canals wnl once removed Audio - about 10 db decrease since last audio 2.5 years ago Will plan on f/u audio in 1 yr, 2mos for cerumen. Pt not presently interested in HAs. documented in this encounter Plan of Treatment Scheduled Orders Name Type Priority Associated Diagnoses Orde r Schedule HEARING EVALUATION Audiology Routine SNHL (sensorineural hearing loss) Ordered: 06/02/2014 documented as of this encounter Procedures Procedure Name Priority Date/Time Associated Diagnosis Comments AUDIOGRAM - SCANNED 06/17/2014 10:14 EDT documented in this encounter Results * AUDIOGRAM - SCANNED (06/17/2014 10:14 EDT) 06/17/2014 10:1 4 EDT Scan 2 Child Care Coordinator PROCEDURE/MINOR KANWAL GICAL ORDERABLES documented in this encounter Visit Diagnoses Diagnosis Impacted cerumen- Primary SNHL (sensorineural hearing loss) Sensorineural hearing loss, unspecified documented in this encounter Care Teams Director Television News Relationship Specialty Start Date End Date Manuel Landrum MD [address] [place] [phone] PCP - General 12/30/13 02/22/16 documented as of this encounter
--- OUTSIDE RECORDS SUMMARY | 2024-03-02 02:26 | XMS_ITS | Encounter Summary ---
Author Organization [facility] Address [address] [place] [address] Care Team Providers Care Comb Tender Name Role Phone Prem Landrum MD Primary Care Provider [phone] Encounter Details Date Type Department Care Team (Latest Contact Info) Description 04/16/2013 16:21 EDT - 04/16/2013 16:22 EDT Hospital Encounter [address] [address] Manuel Landrum MD [address] [place] [phone] Discharge Disposition: Home or Self Care Social [...] file documented as of this encounter Discharge Disposition Disposition Code Departure Means Destination Home or Self Care documented in this encounter Plan of Treatment Not on file documented as of this encounter Visit Diagnoses Not on filedocumented in this encounter Care Teams Comb Tender Relationship Specialty Start Date End Date Prem Landrum MD [address] [phone] PCP - General 04/18/11 12/29/13 documented as of this encounter
--- OUTSIDE RECORDS SUMMARY | 2024-03-02 02:26 | XMS_ITS | Encounter Summary ---
Author Organization [facility] Address [address] [place] [address] Care Team Providers Care Toys Inspector Name Role Phone Prem Landrum MD Primary Care Provider + [phone] Reason for Visit * Reason Comments Cerumen Impaction Encounter Details Date Type Department Care Team (Late st Contact Info) Description 09/30/2013 10:45 EST Office Visit [facility] ENT- [address] [address] Chetna Noble MD [address] [facility], [address] [place] [phone] Impacted cerumen (Primary Dx) Social [...] Progress Notes * Chetna Noble MD - 09/30/2013 1120 EST No problems since his last visit 3 mos ago. ENT Cerumenectomy Indications for Procedure: Obstructive copious cerumen that cannot be removed safely without magnification and multiple instruments. Careful examination of the ear and removal of cerumen was done on both ears using the operating microscope and microinstruments/suction. The patient tolerated this procedure well. Complications: None Findings: PE - TMS and canals wnl once cerumen removed. F/u in 3 mos documented in this encounter Plan of Treatment Not on file documented as of this encounter Visit Diagnoses Diagnosis Impacted cerumen- Primary documented in this encounter Care Teams Toys Inspector Relationship Specialty Start Date End Date Prem Landrum MD [facility] [phone] PCP - General 04/18/11 12/29/13 documented as of this encounter
--- OUTSIDE RECORDS SUMMARY | 2024-03-02 02:26 | XMS_ITS | Encounter Summary ---
Author Organization [facility] Address [address] [place] [address] Care Team Providers Care Ice Maker Name Role Phone Prem Landrum MD Primary Care Provider + [phone] Encounter Details Date Type Department Care Team (Late st Contact Info) Description 04/16/2013 Results Only [facility] Services - [facility] [address] [place] [phone] Manuel Landrum MD [address] [place] [phone] Social History Tobacco Use Types Packs/Day [...] Name Priority Date/Time Associated Diagnosis Comments URINE [id number] NE RATIO (ACR) Routine 04/16/2013 11:41 EDT documented in this encounter Results * ALBUMIN, URINE (04/16/2013 11:41 EDT) Creatinine, Urn Wallace 129.6 mg/dl [facility] Ur Albumin mg/dl 0.7 mg/dl [facility] Alb ug/mg Crea 5.4 ug/mg Crea [facility] Comment: Normal: <30 ug/mg creat High: 30-300 ug/mg creat Very high and nephrotic: >300 ug/mg creat 04/16/2013 11:4 1 EDT 04/16/2013 15:12 EDT Manuel Landrum MD CHEMISTRY & BLOOD GAS ORDERABLES Performing Organization Address City/State/[facility] Co de Phone Number [facility] [address] [place] [address] documented in this encounter Visit Diagnoses Not on filedocumented in this encounter Care Teams Ice Maker Relationship Specialty Start Date End Date Prem Landrum MD Counts include 234 beds at the [facility] [phone] PCP - General 04/18/11 12/29/13 documented as of this encounter
--- OUTSIDE RECORDS SUMMARY | 2024-03-02 02:26 | XMS_ITS | Encounter Summary ---
Author Organization [facility] Address [address] [place] [address] Care Team Providers Care Dance Professor Name Role Phone Manuel Landrum MD Primary Care Provider [phone] [phone] Reason for Visit * Reason Comments Cerumen Impaction Encounter Details Date Type Department Care Team (Late st Contact Info) Description 10/06/2014 10:30 EST Office Visit [facility] ENT- [address] [phone] Chetna Noble MD [address] [facility], Level 4 [place] [address] Impacted cerumen (Primary Dx) Discharge [...] Progress Notes * Chetna Noble MD - 10/06/2014 1202 EST Doing well, last visit 2 mos ago. ENT Cerumenectomy Indications for Procedure: Obstructive copious cerumen that cannot be removed safely without magnification and multiple instruments. Careful examination of the ear and removal of cerumen was done on both ears using the operating microscope and microinstruments/suction. The patient tolerated this procedure well. Complications: None Findings: Right external auditory canal: cleaned out in office Left external auditory canal: cleaned out in office Right tympanic membrane: intact and normally mobile without retraction, perforation or effusion Left tympanic membrane: intact and normally mobile without retraction, perforation or effusion f/u in 2 mos documented in this encounter Plan of Treatment Not on file documented as of this encounter Visit Diagnoses Diagnosis Impacted cerumen- Primary documented in this encounter Care Teams Dance Professor Relationship Specialty Start Date End Date Manuel Landrum MD [address] [place] [phone] PCP - General 12/30/13 02/22/16 documented as of this encounter
--- OUTSIDE RECORDS SUMMARY | 2024-03-02 02:26 | XMS_ITS | Encounter Summary ---
Author Organization [facility] Address [address] [place] [address] Care Team Providers Care Scouring Train Operator Chief Name Role Phone Prem Landrum MD Primary Care Provider [phone] [phone] Encounter Details Date Type Department Care Team (Latest Contact Info) Description 11/18/2013 10:40 EDT - 11/18/2013 10:41 EDT Hospital Encounter [address] [address] Manuel Landrum MD [address] [place] [phone] Discharge Disposition: Home or Self Care Social [...] as of this encounter Discharge Diagnoses Diagnosis 789.00 ABDOMINAL PAIN UNSPEC SITE[ICD-9-CM] documented in this encounter Medications at Time [...] Priority Date/Time Associated Diagnosis Comments RAD US ABDOMEN ONE ORGAN/QUADRANT 12/15/2013 10:53 EDT documented in this encounter Results * RAD US ABDOMEN ONE ORGAN/QUADRANT (12/15/2013 10:53 EDT) Anatomical Region Laterality Modality Other 12/15/2013 10:5 3 EDT 12/15/2013 11:50 EDT Narrative 12/15/2013 11:50 EDT RAD US ABDOMEN ONE ORGAN/QUADRANT ??12/15/2013 10:53 AM Signs and Symptoms/Comments: ??ABD pain RUQ radiating to back, intermittent, stabbing, flank. Comparison:None. Findings: Static, cine and color Doppler images of the right upper quadrant were obtained. The liver is homogeneous and of normal echotexture. It measures 13 cm. There is no intrahepatic or extrahepatic biliary dilatation. The common bile duct measures 2 mm. The gallbladder contains no stones and has a normal wall thickness which measures 2 mm. There is no pericholecystic fluid. Right kidney measures 9.7 cm and has normal echogenicity. ??There is no hydronephrosis. A hyperechoic focus within the lower pole of the right kidney does not definitively shadow. The visualized portion of the pancreas, aorta and IVC are normal. Impression: 1. Hyperechoic focus within the lower pole of the right kidney may represent a non-shadowing renal stone. If clinical confirmation is needed a CT could be performed. I have personally reviewed the images and the above interpretation and agree with the findings. Procedure Note Ya Damon MD - 12/15/2013 RAD US ABDOMEN ONE ORGAN/QUADRANT 12/15/2013 10:53 AM Signs and Symptoms/Comments: ABD pain RUQ radiating to back, intermittent, stabbing, flank. Comparison:None. Findings: Static, cine and color Doppler images of the right upper quadrant were obtained. The liver is homogeneous and of normal echotexture. It measures 13 cm. There is no intrahepatic or extrahepatic biliary dilatation. The common bile duct measures 2 mm. The gallbladder contains no stones and has a normal wall thickness which measures 2 mm. There is no pericholecystic fluid. Right kidney measures 9.7 cm and has normal echogenicity. There is no hydronephrosis. A hyperechoic focus within the lower pole of the right kidney does not definitively shadow. The visualized portion of the pancreas, aorta and IVC are normal. Impression: 1. Hyperechoic focus within the lower pole of the right kidney may represent a non-shadowing renal stone. If clinical confirmation is needed a CT could be performed. I have personally reviewed the images and the above interpretation and agree with the findings. Manuel Landrum MD IMG US ORDERABLES documented in this encounter Visit Diagnoses Not on filedocumented in this encounter Care Teams Scouring Train Operator Chief Relationship Specialty Start Date End Date Prem Landrum MD [address] [phone] PCP - General 04/18/11 12/29/13 documented as of this encounter
--- OUTSIDE RECORDS SUMMARY | 2024-03-02 02:26 | XMS_ITS | Encounter Summary ---
Author Organization [facility] Address [address] [place] [address] Care Team Providers Care Market Development Specialist Name Role Phone Prem Landrum MD Primary Care Provider [phone] [phone] Encounter Details Date Type Department Care Team (Latest Contact Info) Description 01/25/2012 14:28 EDT - 01/25/2012 14:29 EDT Hospital Encounter [address] [address] Manuel Landrum MD [address] [place] [phone] Discharge Disposition: Home or Self Care Social [...] on filedocumented in this encounter Care Teams Market Development Specialist Relationship Specialty Start Date End Date Prem Landrum MD [address] [phone] PCP - General 04/18/11 12/29/13 documented as of this encounter
--- OUTSIDE RECORDS SUMMARY | 2024-03-02 02:26 | XMS_ITS | Encounter Summary ---
Author Organization [facility] Address [address] [place] [address] Care Team Providers Care Lead Retail Sales Associate Name Role Phone Ya Yee MD Primary Care Provider [phone] [phone] Reason for Visit * Reason Comments Cerumen Impaction Encounter Details Date Type Department Care Team (Late st Contact Info) Description 06/28/2016 10:45 EST Office Visit [facility] ENT- [address] [phone] Chetna Noble MD [address] [place] [address], [address] [place] [address] Bilateral impacted cerumen (Primary Dx) [...] No 06/28/2016 documented as of this encounter Progress Notes * Chetna Noble MD - 06/28/2016 1107 EST ENT Cerumenectomy Indications for Procedure: Obstructive copious cerumen that cannot be removed safely without magnification and multiple instruments. Careful examination of the ear and removal of cerumen was done on both ears using the operating microscope and microinstruments/suction. The patient tolerated this procedure well. Complications: None Findings: Ears - firm cerumen in both canals - removed, TMs wnl F/u in 3 mos documented in this encounter Plan of Treatment Not on file documented as of this encounter Visit Diagnoses Diagnosis Bilateral impacted cerumen- Primary Impacted cerumen documented in this encounter Care Teams Lead Retail Sales Associate Relationship Specialty Start Date End Date Ya Yee MD [address] [place] [phone] PCP - General 02/23/16 10/02/21 documented as of this encounter
--- OUTSIDE RECORDS SUMMARY | 2024-03-02 02:26 | XMS_ITS | Encounter Summary ---
Author Organization [facility] Address [address] [place] [address] Care Team Providers Care Etl Data Architect Name Role Phone Manuel Landrum MD Primary Care Provider [phone] [phone] Encounter Details Date Type Department Care Team (Latest Contact Info) Description 08/10/2015 8:14 EST - 08/10/2015 23:59 [facility] Hospital Encounter [facility] [address] [place] [address] [place] [address] [place] [address] Discharge Disposition: Home or Self [...] as of this encounter Discharge Diagnoses Diagnosis R79.82 Elevated C-reactive protein (CRP)-R79.82[ICD-10-CM] 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, 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[ICD-10-CM] R53.81 Other malaise-R53.81[ICD-10-CM] R53.83 Other fatigue-R53.83[ICD-10-CM] K57.30 Diverticulosis of large intestine without perforation or abscess without bleeding-K57.30[ICD-10-CM] E55.9 Vitamin D deficiency, unspecified-E55.9[ICD-10-CM] documented in this encounter Discharge Disposition Disposition Code Departure Means Destination Home or Self Correction documented in this encounter Plan of Treatment Not on file documented as of this encounter Visit Diagnoses Not on filedocumented in this encounter Care Teams Etl Data Architect Relationship Specialty Start Date End Date Manuel Landrum MD [address] [place] [phone] PCP - General 12/30/13 02/22/16 documented as of this encounter
--- OUTSIDE RECORDS SUMMARY | 2024-03-02 02:26 | XMS_ITS | Encounter Summary ---
Author Organization [facility] Address [address] [place] [address] Care Team Providers Care Sales Designer Name Role Phone Prem Landrum MD Primary Care Provider [phone] Encounter Details Date Type Department Care Team (Late st Contact Info) Description 11/18/2013 Results Only [facility] Laboratory Services - [facility] ([facility]) [address] [place], [place] [phone] Manuel Landrum MD [address] [place] [phone] Social History Tobacco Use Types Packs/Day [...] Procedure Name Priority Date/Time Associated Diagnosis Comments HEPATIC FUNCTION PANEL (ALB,ALK PHOS,ALT,AST,DBIL,T OT SERGEY,TOT PROT) Routine 11/18/2013 15:29 EDT documented in this encounter Results * HEPATIC FUNCTION PANEL (ALB,ALK PHOS,ALT,AST,DBIL,TOT SERGEY,TOT PROT) (11/18/2013 15:29 EDT) Albumin 4.7 3.4 - 4.9 g/dl [facility] Total Protein 7.8 6.5 - 8.3 g/dl [facility] Total Alkaline Phosphatase 79 38 - 126 U/L [facility] ALT 51 21 - 72 U/L [facility] AST 30 15 - 46 U/L [facility] Unconjugated Bilirubin 0.4 0.0 - 1.1 mg/dl [facility] Conjugated Bilirubin 0.0 0.0 - 0.3 mg/dl [facility] Bilirubin, Total 1.0 <1.4 mg/dl [facility] 11/18/2013 15:2 9 EDT 11/18/2013 19:18 EDT Manuel Landrum MD CHEMISTRY & BLOOD GAS ORDERABLES Performing Organization Address City/State/[facility] Co de Phone Number [facility] [address] [place] [address] documented in this encounter Visit Diagnoses Not on filedocumented in this encounter Care Teams Sales Designer Relationship Specialty Start Date End Date Prem Landrum MD [address] [phone] PCP - General 04/18/11 12/29/13 documented as of this encounter
--- OUTSIDE RECORDS SUMMARY | 2024-03-02 02:27 | XMS_ITS | Encounter Summary ---
Author Organization [facility] Address [address] [place] [address] Care Team Providers Care International Broadcast Music Librarian Name Role Phone Nolberto Mac MD Primary Care Provider [phone] Reason for Visit * Reason Comments Follow-up cerumen impaction Encounter Details Date Type Department Care Team (Late st Contact Info) Description 12/19/2010 11:05 EDT Office Visit [address] [phone] Chetna Noble MD [address] [place] [address], [address] [place] [address] Impacted cerumen (Primary Dx) Social [...] Progress Notes * Chetna Noble MD - 12/19/2010 1120 EDT Pt here today for routine cerumen removal. No problems since his last visit. PE - Ears - canals are obstructed with cerumen, removed under the microscope with #7 suction and alligator, once done, the canals and TMs are wnl A - Cerumen removed P - f.u in 3 mos documented in this encounter Plan of Treatment Not on file documented as of this encounter Visit Diagnoses Diagnosis Impacted cerumen- Primary documented in this encounter Care Teams International Broadcast Music Librarian Relationship Specialty Start Date End Date Nolberto Mac MD [address] [place] [phone] PCP - General 02/24/09 04/17/11 documented as of this encounter
--- OUTSIDE RECORDS SUMMARY | 2024-03-02 02:27 | XMS_ITS | Encounter Summary ---
Author Organization [facility] Address [address] [place] [address] Care Team Providers Care Cattle Sorter Name Role Phone Unavailable Primary Care Provider Unavailabl e Encounter Details Date Type Department Care Team (Late st Contact Info) Description 09/17/2005 9:19 EST Hospital Encounter [address] [phone] Chetna Noble MD [address] [place] [address], [address] [place] [address] Social History Tobacco Use Types Packs/Day Years [...] place to sleep or slept in a fdc (including now)? No 09/12/2021 Interpersonal Safety Answer [...] 16:16 EDT documented as of this encounter Plan of Treatment Not on file documented as of this encounter Goals Goal Patient Goal Type Associated Problems Recent Progress Patient-Stated? Author LDL < 100 Result Component Hyperlipidemia 113( 9 9:29 EDT) No Colleen Arora documented as of this encounter Visit Diagnoses Not on filedocumented in this encounter
--- OUTSIDE RECORDS SUMMARY | 2024-03-02 02:27 | XMS_ITS | Encounter Summary ---
Author Organization [facility] Address [address] [place] [address] Care Team Providers Care Financial Reporting Analyst Name Role Phone Unavailable Primary Care Provider Unavailabl e Encounter Details Date Type Department Care Team (Latest Contact Info) Description 07/08/2001 18:23 EST Hospital Encounter [facility] Emergency Department - [facility] [address] [place] [address] Emergency, Default, MD Discharge Disposition: Home or Self Care Social History Tobacco Use Types Packs/Day Years Used Date Smoking Tobacco: Never Assessed Sex and Gender Information Value Date Recorded [...]
--- OUTSIDE RECORDS SUMMARY | 2024-03-02 02:27 | XMS_ITS | Encounter Summary ---
Author Organization [facility] Address [address] [place] [address] Care Team Providers Care Pickup Driver Name Role Phone Nolberto Mac MD Primary Care Provider [phone] [phone] Encounter Details Date Type Department Care Team (Latest Contact Info) Description 02/25/2010 17:04 EDT - 02/25/2010 17:05 EDT Hospital Encounter [facility] - Other [address] [place] [address] [place], DO [address] [place] [phone] Discharge Disposition: Home or Self Care Social [...] on filedocumented in this encounter Care Teams Pickup Driver Relationship Specialty Start Date End Date Nolberto Mac MD [address] [place] [phone] PCP - General 02/24/09 04/17/11 documented as of this encounter
--- OUTSIDE RECORDS SUMMARY | 2024-03-02 02:27 | XMS_ITS | Encounter Summary ---
Author Organization [facility] Address [address] [place] [address] Care Team Providers Care Criminal Justice Program Director Name Role Phone Unavailable Primary Care Provider Unavailabl e Encounter Details Date Type Department Care Team (Latest Contact Info) Description 08/21/2005 16:02 EST Hospital Encounter [facility] - Other [address] [place] [address] Nolberto Mac MD [address] [place] [phone] Discharge Disposition: Home or Self Care Social [...] Associated Diagnosis Comments COMPLETE BLOOD COUNT Routine 08/21/2005 13:27 EST PSA SCREEN Routine 08/21/2005 13:27 EST LIPID PROFILE (INCLUDES CHOLESTEROL, TRIGLYCERIDES, HDL, LDL) Routine 08/21/2005 13:27 EST COMPREHENSIVE METABOLIC PANEL (CMP) Routine 08/21/2005 13:27 EST documented in this encounter Results * PSA SCREEN (08/21/2005 13:27 EST) PSA 0.4 0 - 3.5 ng/ml [facility] Comment: Serum PSA concentration should not be interpreted as absolute evidence for the presence or absence of malignant disease. Assayed utilizing [employer] chemiluminescent technology. Values obtained by using different assay methods cannot be used interchangeably. 08/21/2005 13:2 7 EST 08/21/2005 13:27 EST Nolberto Mac MD CHEMISTRY & BLOOD GAS ORDERABLES Performing Organization Address [facility] de Phone Number [facility] [address] [place] [address] * (ABNORMAL) LIPID PROFILE (INCLUDES CHOLESTEROL, TRIGLYCERIDES, HDL, LDL) (08/21/2005 13:27 EST) [facility] Cholesterol 271 mg/dl [facility] Comment: Desirable:<200 Borderline:200-239 High Risk:>kx=577 Triglycerides 219(H) 35 - 160 mg/dl [facility] HDL 56 mg/dl [facility] Comment: Highly Desirable:>60 Desirable:35-60 High Risk:<35 LDL, Calculated 171 mg/dl [facility] Comment: Desirable:<130 Borderline:130-159 High Risk:>ig=199 Chol/HDL Ratio 4.8 [facility] Fasting? Unknown [facility] 08/21/2005 13:2 7 EST 08/21/2005 13:27 EST Nolberto Mac MD CHEMISTRY & BLOOD GAS ORDERABLES Performing Organization Address [facility] Phone Number [facility] [address] [place] [address] * COMPREHENSIVE METABOLIC PANEL (08/21/2005 13:27 EST) Pathologist [facility] Potassium 4.2 3.5 - 5.0 mEq/L [facility] Sodium 138 136 - 145 mEq/L [facility] Chloride 103 96 - 110 mEq/L [facility] CO2 27 24 - 32 mEq/L [facility] Total Alkaline Phosphatase 73 38 - 126 U/L [facility] Bilirubin, Total 0.8 0.2 - 1.3 mg/dl [facility] AST 30 15 - 46 U/L [facility] ALT 47 21 - 72 U/L [facility] Albumin 4.9 3.4 - 4.9 g/dl [facility] Total Protein 7.9 6.5 - 8.3 g/dl [facility] Creatinine 0.8 0.7 - 1.5 mg/dl [facility] BUN 15 10 - 26 mg/dl [facility] Calcium 9.0 8.5 - 10.5 mg/dl [facility] Calculated Calcium 8.5 8.5 - 10.5 mg/dl [facility] Glucose, Serum 98 70 - 110 mg/dl [facility] Fasting? Unknown [facility] Albumin/Globulin Ratio 1.6 [facility] 08/21/2005 13:2 7 EST 08/21/2005 13:27 EST Nolberto Mac MD CHEMISTRY & BLOOD GAS ORDERABLES Performing Organization Address [facility] de Phone Number [facility] [address] [place] [address] * HEMAGRAM (08/21/2005 13:27 EST) WBC 6.23 4.0 - 10.4 K/cmm [facility] RBC 5.03 4.36 - 5.78 M/cmm [facility] Hemoglobin 16.1 13.8 - 17.3 gm/dl [facility] HCT 46.5 39.5 - 50.2 % [facility] MCV 92 81 - 95 fl [facility] MCH 32.0 27.6 - 33.0 pg [facility] MCHC 34.7 32.8 - 36.4 gm/dl [facility] PLT 313 141 - 320 K/cmm [facility] RDW-CV 12.4 11.8 - 14.1 % [facility] 08/21/2005 13:2 7 EST 08/21/2005 13:27 EST Nolberto Mac MD HEMATOLOGY & PF4 ORDERABLES Performing Organization Address City/[facility] Co de Phone Number [facility] [address] [place] [address] documented in this encounter Visit Diagnoses Not on filedocumented in this encounter
--- OUTSIDE RECORDS SUMMARY | 2024-03-02 02:27 | XMS_ITS | Encounter Summary ---
Author Organization [facility] Address [address] [place] [address] Care Team Providers Care School Bus Operator Name Role Phone Unavailable Primary Care Provider Unavailabl e Encounter Details Date Type Department Care Team (Late st Contact Info) Description 05/12/1999 9:18 EDT Hospital Encounter [address] [address] Kirk Soto MD [address] [place] [address] Social History Tobacco Use Types Packs/Day Years [...] place to sleep or slept in a longterm (including now)? No 09/12/2021 Interpersonal Safety Answer [...]
--- OUTSIDE RECORDS SUMMARY | 2024-03-02 02:27 | XMS_ITS | Encounter Summary ---
Author Organization [facility] Address [address] [place] [address] Care Team Providers Care Pattern Lease Inspector Name Role Phone Nolberto Mac MD Primary Care Provider +1 [phone] Encounter Details Date Type Department Care Team (Late st Contact Info) Description 07/20/2010 Abstract Used for ABSTRACTING Data [phone] Nolberto Mac MD [address] [place] [address] Social History Tobacco Use Types Packs/Day Years Used Date Smoking Tobacco: Never Assessed Sex and Gender Information Value Date Recorded Sex Assigned at Not on file Gender Identity Male 10/27/2019 18:25 EDT Sexual Orientation Not on file documented as of this encounter Plan of Treatment Not on file documented as of this encounter Visit Diagnoses Not on filedocumented in this encounter Care Teams Pattern Lease Inspector Relationship Specialty Start Date End Date Nolberto Mac MD [address] [place] [phone] PCP - General 02/24/09 04/17/11 documented as of this encounter
--- OUTSIDE RECORDS SUMMARY | 2024-03-02 02:27 | XMS_ITS | Encounter Summary ---
Author Organization [facility] Address [address] [place] [address] Care Team Providers Care Line Supervisor Name Role Phone Nolberto Mac MD Primary Care Provider +1 [phone] Encounter Details Date Type Department Care Team (Late st Contact Info) Description 03/01/2010 Abstract Used for ABSTRACTING Data [phone] Nolberto Mac MD [address] [place] [address] Social History Tobacco Use Types Packs/Day Years Used Date Smoking Tobacco: Never Assessed Sex and Gender Information Value Date Recorded Sex Assigned at Not on file Gender Identity Male 10/27/2019 18:25 EDT Sexual Orientation Not on file documented as of this encounter Plan of Treatment Not on file documented as of this encounter Visit Diagnoses Not on filedocumented in this encounter Historical Medications * This list may reflect changes made after this encounter. Medication Sig Dispensed Refills Start Date End Date multivitamin (MULTIPLE VITAMIN) per tablet Take 1 Tab by mouth daily. 11/02/2011 added in this encounter Care Teams Line Supervisor Relationship Specialty Start Date End Date Nolberto Mac MD [address] [place] [phone] PCP - General 02/24/09 04/17/11 documented as of this encounter
--- OUTSIDE RECORDS SUMMARY | 2024-03-02 02:27 | XMS_ITS | Encounter Summary ---
Author Organization [facility] Address [address] [place] [address] Care Team Providers Care Care Technician Name Role Phone Nolberto Mac MD Primary Care Provider +1 [phone] Encounter Details Date Type Department Care Team (Latest Contact Info) Description 08/01/2009 21:31 EST - 08/01/2009 21:32 [facility] Hospital Encounter [facility] - Other [address] [place] [address] Nolberto Mac MD [address] [place] [phone] Discharge Disposition: Home or Self Care Social [...] on filedocumented in this encounter Care Teams Care Technician Relationship Specialty Start Date End Date Nolberto Mac MD [address] [place] [phone] PCP - General 02/24/09 04/17/11 documented as of this encounter
--- OUTSIDE RECORDS SUMMARY | 2024-03-02 02:27 | XMS_ITS | Encounter Summary ---
Author Organization [facility] Address [address] [place] [address] Care Team Providers Care Emu Farmer Name Role Phone Nolberto Mac MD Primary Care Provider +1 [phone] Encounter Details Date Type Department Care Team (Late st Contact Info) Description 02/25/2010 Results Only [facility] Laboratory Services - [facility] ([facility]) [address] [place], [place] [id number] Van Lind, DO [address] [place] [phone] Social History Tobacco Use Types Packs/Day Years [...] PANEL (ALB,ALK PHOS,ALT,AST,DBIL,T OT SERGEY,TOT PROT) Routine 02/25/2010 8:00 EDT LIPID PROFILE (INCLUDES CHOLESTEROL, TRIGLYCERIDES, HDL, LDL) Routine 02/25/2010 8:00 EDT documented in this encounter Results * (ABNORMAL) LIPID PROFILE (INCLUDES CHOLESTEROL, TRIGLYCERIDES, HDL, LDL) (02/25/2010 8:00 EDT) Cholesterol 249 mg/dl [facility] Comment: Desirable:<200 Borderline High:200-239 High:>kt=852 Triglycerides 161(H) 35 - 160 mg/dl [facility] HDL 53 mg/dl [facility] Comment: Low:<40 High(Desirable):>or=60 LDL, Calculated 164 mg/dl [facility] Comment: Optimal:<100 Above optimal:100-129 Borderline High:130-159 High:160-189 Very High:>bu=203 Chol/HDL Ratio 4.7 [facility] Fasting? Unknown [facility] 02/25/2010 8:00 EDT 02/25/2010 15:24 EDT Van Lind DO CHEMISTRY & BLO OD GAS ORDERABLES Performing Organization Address [facility] Co de Phone Number [facility] [address] [place] [address] * LIVER FUNCTION TESTS (02/25/2010 8:00 EDT) Albumin 4.2 3.4 - 4.9 g/dl [facility] Total Protein 6.8 6.5 - 8.3 g/dl [facility] Total Alkaline Phosphatase 81 38 - 126 U/L [facility] ALT 38 21 - 72 U/L [facility] AST 31 15 - 46 U/L [facility] Unconjugated Bilirubin 0.7 0.1 - 1.1 mg/dl [facility] Conjugated Bilirubin 0.0 0.0 - 0.3 mg/dl [facility] Bilirubin, Total 0.6 0.2 - 1.3 mg/dl [facility] 02/25/2010 8:00 EDT 02/25/2010 15:24 EDT Van Lind DO CHEMISTRY & BLO OD GAS ORDERABLES Performing Organization Address [facility] Co de Phone Number [facility] [address] [place] [address] documented in this encounter Visit Diagnoses Not on filedocumented in this encounter Care Teams Emu Farmer Relationship Specialty Start Date End Date Nolberto Mac MD [address] [place] [phone] PCP - General 02/24/09 04/17/11 documented as of this encounter
--- OUTSIDE RECORDS SUMMARY | 2024-03-02 02:27 | XMS_ITS | Encounter Summary ---
Author Organization [facility] Address [address] [place] [address] Care Team Providers Care Front End Engineer Name Role Phone Unavailable Primary Care Provider Unavailabl e Encounter Details Date Type Department Care Team (Latest Contact Info) Description 07/24/2007 11:20 EST - 07/24/2007 11:59 EST Hospital Encounter [facility] - Other [address] [place] [address] Nolberto aMc MD [address] [place] [phone] Discharge Disposition: Auto Discharge Social History Tobacco Use Types Packs/Day Years Used Date Smoking Tobacco: Never Assessed Sex and Gender Information Value Date Recorded Sex Assigned at Not on file Gender Identity Male 10/27/2019 18:25 EDT Sexual Orientation Not on file documented as of this encounter Discharge Disposition Disposition Code Departure Means Destination Auto Discharge documented in this encounter Plan of Treatment Not on file documented as of this encounter Visit Diagnoses Not on filedocumented in this encounter
--- OUTSIDE RECORDS SUMMARY | 2024-03-02 02:27 | XMS_ITS | Encounter Summary ---
Author Organization [facility] Address [address] [place] [address] Care Team Providers Care Shank Burnisher Name Role Phone Nolberto Mac MD Primary Care Provider [phone] [phone] Encounter Details Date Type Department Care Team (Late st Contact Info) Description 09/17/2005 Before PRISM Converted Visit (Maple) [facility] - Maple conversion [address] [place] [address] Chetna Noble MD [address] [facility], [address] [place] [phone] Social History Tobacco Use Types Packs/Day Years Used Date Smoking Tobacco: Never Assessed Sex and Gender Information Value Date Recorded Sex Assigned at Not on file Gender Identity Male 10/27/2019 18:25 EDT Sexual Orientation Not on file documented as of this encounter Progress Notes * Chetna Noble MD - 10/19/2009 0604 EST DIVISION OF OTOLARYNGOLOGY PROGRESS/FOLLOWUP NOTE - 09/17/2005 S:Forrest is here today for evaluation of vertigo. He has noted that this has been occurring over the last month. He notes that when he gets up in the morning for the first few seconds, he feels a bit off balance, but then can go on from there and feels fine. Occasionally if he is sitting down fora long time and stands up quickly, he will also notice a little bit of dizziness. These episodes never occur when he is up and moving around or doing activities. He has noted some tinnitus in his ears. He is presently taking no medications. In terms of medical problems, he denies heart problems. He does have increased cholesterol. He denies hypertension. O: On physical exam, generally, he is no distress. His nose is healthy appearing. His mouthand oropharynx is within normal limits. Neck is unremarkable. Both ears are healthy appearing. An audiogram was done and this shows only a very minor hearing loss in the lower frequencies and the higher frequencies. The mid range is within the normalrange. A:symptoms do not seem consistent with a vestibular problem. It almost seems more orthostatic by history. This was discussed with him and it was suggested that he might see Dr. Mac for evaluation if this problem persists. P: He will return here as needed. Signed by Chetna Noble MD 09/20/2005 08:48 Deshawn Reyes MD Chtena Noble MD D: - Chetna Noble MD A - wlp Job ID: Tape Document ID: [id number] cc: Moe Mac MD documented in this encounter Plan of Treatment Not on file documented as of this encounter Visit Diagnoses Not on filedocumented in this encounter Care Teams Shank Burnisher Relationship Specialty Start Date End Date Nolberto Mac MD [address] [place] [phone] PCP - General 02/24/09 04/17/11 documented as of this encounter
--- OUTSIDE RECORDS SUMMARY | 2024-03-02 02:27 | XMS_ITS | Encounter Summary ---
Author Organization [facility] Address [address] [place] [address] Care Team Providers Care Rangelands Conservation Laborer Name Role Phone Nolberto Mac MD Primary Care Provider [phone] [phone] Reason for Visit * Reason Comments Finger Injury Encounter Details Date Type Department Care Team (Latest Contact Info) Description 10/04/2010 10:20 EST - 10/04/2010 12:27 EST Hospital Encounter [facility] [address] [place] [address] Catherine Kerr NP [address] [place] [phone] Finger sprain Discharge Disposition: Home or Self Care Social [...] Sign Reading Time Taken Comments Blood Pressure 152/86 10/04/2010 1131 EST Pulse 88 10/04/2010 1131 EST Temperature 37.2 ??C (98.9 ??F) 10/04/2010 1131 EST Respiratory Rate 20 10/04/2010 1131 EST Oxygen Saturation - - Inhaled Oxygen Concentration - - Weight - - Height - - Body Mass Index - - documented in this encounter Discharge Instructions * Attachments The following attachments cannot be sent through Care Everywhere. * HAND SPRAIN: AFTER YOUR VISIT (SINHALA) documented in this encounter Medications at Time of Discharge Medication Sig Dispensed Refills Start Date End Date multivitamin (MULTIPLE VITAMIN) per tablet Take 1 Tab by mouth daily. 11/02/2011 documented as of this encounter Discharge Disposition Disposition Code Departure Means Destination Home or Self Care documented in this encounter ED Notes * Felipa Kerr, ELIANA - 10/04/2010 1203 EST Images from the original note were not included. DOS: 10/04/2010 Chief Complaint Patient presents with ??? Finger Injury The patient is a 59 y.o. male who presents today with Finger Injury HPI Comments: Patient slipped on ice 7 days ago, and while trying to steady himself, struck his right middle finger directly into the car door. He denies other injuries. He presents for persistent finger pain. 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 The history is provided by the patient. Hand Pain The incident occurred more than 2 days ago. The incident occurred at home. The injury mechanism wasa direct blow. The pain is present in the right fingers. The quality of the pain is described as aching. The pain is moderate. The pain has been constant since the incident. The symptoms are aggravated by movement, use and palpation. He has tried nothing for the symptoms. Review of Systems Neurological: Negative for weakness and numbness. No current facility-administered medications on file. Current outpatient prescriptions Medication Sig Dispense Refill ??? multivitamin (MULTIPLE VITAMIN) per tablet Take 1 Tab by mouth daily. No Known Allergies History reviewed. No pertinent past medical history. History Substance Use Topics ??? Smoking status: Former Smoker ??? Smokeless tobacco: Never Used Comment: Quit as a teenager ??? Alcohol Use: 25.0 oz/week 5 Glasses of wine per week History reviewed. No pertinent family history. BP 152/86 Pulse 88 Temp(Src) 98.9 ??F (37.2 ??C) (Oral) Resp 20 Physical Exam Nursing note and vitals reviewed. Constitutional: He is oriented to person, place, and time. He appears well- developed and well-nourished. HENT: Head: Atraumatic. Musculoskeletal: He exhibits edema and tenderness. Hands: There is tenderness noted overlying the PIP joint. There is no associated edema. ROM is WNL. Neurovascular and tendon function are WNL. Neurological: He is alert and oriented to person, place, and time. Skin: Skin is warm and dry. Psychiatric: He has a normal mood and affect. Consult orders: None PCP: MIRA MAC MD No results found for this visit on 10/04/10. Radiology orders: FINGER 2 OR MORE VIEWS FINGER 2 OR MORE VIEWS Final result not shown here.: Imaging Results FINGER 2 OR MORE VIEWS (Final result) Result time:10/04/10 1202 Final result by Rad Results In Bryce (10/04/10 1202) Narrative: Right middle finger October 04, 2010 History: Status post fall, pain and swelling at DIP Three views were obtained. There are 2 tiny calcifications dorsal to the distal interphalangeal joint, these appear well-corticated and may represent accessory ossicles or may be related to prior trauma. No acute fracture or dislocation is seen. Procedures Course: Patient stable. Finger sprain. Placed in a foam aluminium splint X 1 week to aid healing. NSAIDS asneeded. No diagnosis found. Dr. Justyn Frankel was available for consultation during my care of this patient. MDM Number of Diagnoses or Management Options 10/04/2010 12:03 * Nani Arcos RN - 10/04/2010 1142 EST Jammed his right middle finger last week on last week 09/28/10 when he fell on the ice. Nowwith persistent pain at DIP with moderate swelling. Is able to bend the digit, denies numbness/tingling at the tip. Digit warm to touch documented in this encounter Miscellaneous Notes * Scanned Note-Null - Inpatient, Physician - 10/04/2010 0000 EST documented in this encounter Plan of Treatment Not on file documented as of this encounter Procedures Procedure Name Priority Date/Time Associated Diagnosis Comments FINGER 2 OR MORE VIEWS STAT 10/04/2010 11:53 EST documented in this encounter Results * FINGER 2 OR MORE VIEWS (10/04/2010 11:53 EST) Anatomical Region Laterality Modality Other 10/04/2010 11:5 3 EST 10/04/2010 12:02 EST Narrative 10/04/2010 12:02 EST Right middle finger October 04, 2010 History: Status post fall, pain and swelling at DIP Three views were obtained. There are 2 tiny calcifications dorsal to the distal interphalangeal joint, these appear well-corticated and may represent accessory ossicles or may be related to prior trauma. No acute fracture or dislocation is seen. Procedure Note 10/04/2010 Right middle finger October 04, 2010 History: Status post fall, pain and swelling at DIP Three views were obtained. There are 2 tiny calcifications dorsal to the distal interphalangeal joint, these appear well-corticated and may represent accessory ossicles or may be related to prior trauma. No acute fracture or dislocation is seen. Catherine Kerr MACHINE SILK SCREEN PRINTER IMG DIAGNOSTIC HOWARD GING ORDERABLES documented in this encounter Visit Diagnoses Diagnosis Finger sprain Sprain of hand, unspecified site documented in this encounter Orders General Supply Count Last Ordered Date First Or dered Date ED SPLINT 1 10/04/2010 documented in this encounter Care Teams Rangelands Conservation Laborer Relationship Specialty Start Date End Date Nolberto Mac MD [address] [place] [phone] PCP - General 02/24/09 04/17/11 documented as of this encounter
--- OUTSIDE RECORDS SUMMARY | 2024-03-02 02:27 | XMS_ITS | Encounter Summary ---
Author Organization [facility] Address [address] [place] [address] Care Team Providers Care Flat Folding Machine Operator Name Role Phone Unavailable Primary Care Provider Unavailabl e Encounter Details Date Type Department Care Team (Late st Contact Info) Description 01/04/2004 16:32 EDT Hospital Encounter [facility] - Other [address] [place] [address] Nolberto Mac MD [address] [place] [phone] Social History Tobacco Use Types [...] place to sleep or slept in a fci (including now)? No 09/12/2021 Interpersonal Safety Answer [...]
--- OUTSIDE RECORDS SUMMARY | 2024-03-02 02:27 | XMS_ITS | Encounter Summary ---
Author Organization [facility] Address [address] [place] [address] Care Team Providers Care Director Of Global Sales Name Role Phone Nolberto aMc MD Primary Care Provider [phone] [phone] Encounter Details Date Type Department Care Team (Latest Contact Info) Description 06/09/2009 10:08 EDT - 06/09/2009 23:59 EDT Hospital Encounter [facility] [address] [place] [address] Nolberto Mac MD [address] [place] [phone] Discharge Disposition: Auto Discharge Social History Tobacco [...] Associated Diagnosis Comments COMPLETE BLOOD COUNT Routine 08/01/2009 10:15 EST PSA SCREEN Routine 08/01/2009 10:15 EST LIPID PROFILE (INCLUDES CHOLESTEROL, TRIGLYCERIDES, HDL, LDL) Routine 08/01/2009 10:15 EST COMPREHENSIVE METABOLIC PANEL (CMP) Routine 08/01/2009 10:15 EST CHEST PA AND LATERAL 06/09/2009 10:22 EDT documented in this encounter Results * PSA SCREEN (08/01/2009 10:15 EST) PSA 0.4 0 - 4.5 ng/ml [facility] Comment: Serum PSA concentration should not be interpreted as absolute evidence for the presence or absence of malignant disease. Assayed utilizing [employer] chemiluminescent technology. Values obtained by using different assay methods cannot be used interchangeably. PREVIOUS PSA RESULT ON 08/10/08 WAS 0.4 08/01/2009 10:1 5 EST 08/01/2009 14:23 EST Nolberto Mac MD CHEMISTRY & BLOOD GAS ORDERABLES Performing Organization Address [facility] de Phone Number [facility] [address] [place] [address] * (ABNORMAL) LIPID PROFILE (INCLUDES CHOLESTEROL, TRIGLYCERIDES, HDL, LDL) (08/01/2009 10:15 EST) Cholesterol 268 mg/dl [facility] Comment: Desirable:<200 Borderline High:200-239 High:>bv=924 Triglycerides 170(H) 35 - 160 mg/dl [facility] HDL 53 mg/dl [facility] Comment: Low:<40 High(Desirable):>or=60 LDL, Calculated 181 mg/dl [facility] Comment: Optimal:<100 Above optimal:100-129 Borderline High:130-159 High:160-189 Very High:>wo=516 Chol/HDL Ratio 5.1 [facility] Fasting? Yes [facility] 08/01/2009 10:1 5 EST 08/01/2009 14:23 EST Nolberto Mac MD CHEMISTRY & BLOOD GAS ORDERABLES Performing Organization Address [facility] de Phone Number [facility] [address] [place] [address] * COMPREHENSIVE METABOLIC PANEL (08/01/2009 10:15 EST) Potassium 4.4 3.5 - 5.0 mEq/L [facility] Sodium 138 136 - 145 mEq/L [facility] Chloride 99 96 - 110 mEq/L [facility] CO2 32 24 - 32 mEq/L [facility] Alkaline Phosphatase 73 38 - 126 U/L [facility] Bilirubin, Total 1.0 0.2 - 1.3 mg/dl [facility] AST 33 15 - 46 U/L [facility] ALT 48 21 - 72 U/L [facility] Albumin 4.9 3.4 - 4.9 g/dl [facility] Total Protein 7.6 6.5 - 8.3 g/dl [facility] Creatinine 0.87 0.7 - 1.5 mg/dl [facility] GFR, Calculated >60 ml/min/1.7 3m2 [facility] BUN 13 10 - 26 mg/dl [facility] Calcium 9.3 8.5 - 10.5 mg/dl [facility] Calculated Calcium 8.8 8.5 - 10.5 mg/dl [facility] Glucose, Serum 96 70 - 100 mg/dl [facility] Fasting? Yes [facility] 08/01/2009 10:1 5 EST 08/01/2009 14:23 EST Nolberto Mac MD CHEMISTRY & BLOOD GAS ORDERABLES [facility] [address] [place] [address] * HEMAGRAM (08/01/2009 10:15 EST) WBC 5.70 4.0 - 10.4 K/cmm [facility] RBC 4.98 4.36 - 5.78 M/cmm [facility] Hemoglobin 16.3 13.8 - 17.3 gm/dl [facility] HCT 46.2 39.5 - 50.2 % [facility] MCV 93 81 - 95 fl [facility] MCH 32.7 27.6 - 33.0 pg [facility] MCHC 35.3 32.8 - 36.4 gm/dl [facility] PLT 243 141 - 320 K/cmm [facility] RDW-CV 12.8 11.8 - 14.1 % [facility] 08/01/2009 10:1 5 EST 08/01/2009 14:23 EST Nolberto Mac MD HEMATOLOGY & PF4 ORDERABLES [facility] [address] [place] [address] * CHEST PA AND LATERAL (06/09/2009 10:22 EDT) Anatomical Region Laterality Modality Other 06/09/2009 10:2 2 EDT 06/09/2009 16:08 EDT Narrative 06/09/2009 16:08 EDT CHEST PA AND LAT ??Jun 09, 2009 10:22:00 AM Clinical history/Comments: Cough x1 month Comparison: None. Findings: PA and lateral views of the chest were obtained. Severe degenerative changes are noted within the left humeral head. The pulmonary vasculature and cardiomediastinal contours are within normal limits. There are no pleural effusions or areas of consolidation. Impression: 1. No evidence of pneumonia. 2. 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 I have personally reviewed the images and the above interpretation and agree with the findings. Procedure Note Arvin Maldonado MD / Arvin Maldonado MD / Arvin Maldonado MD - 06/09/2009 CHEST PA AND LAT Jun 09, 2009 10:22:00 AM Clinical history/Comments: Cough x1 month Comparison: None. Findings: PA and lateral views of the chest were obtained. Severe degenerative changes are noted within the left humeral head. The pulmonary vasculature and cardiomediastinal contours are within normal limits. There are no pleural effusions or areas of consolidation. Impression: 1. No evidence of pneumonia. 2. 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 I have personally reviewed the images and the above interpretation and agree with the findings. Emili Shields JUNIOR INVOICE CLASSIFICATION CLERK IMG DIAGNOSTIC IM AGING ORDERABLES documented in this encounter Visit Diagnoses Not on filedocumented in this encounter Care Teams Director Of Global Sales Relationship Specialty Start Date End Date Nolberto Mac MD [address] [place] [phone] PCP - General 02/24/09 04/17/11 documented as of this encounter
--- OUTSIDE RECORDS SUMMARY | 2024-03-02 02:27 | XMS_ITS | Encounter Summary ---
Author Organization [facility] Address [address] [place] [address] Care Team Providers Care Drill Operator Automatic Name Role Phone Prem Landrum MD Primary Care Provider [phone] [phone] Encounter Details Date Type Department Care Team (Latest Contact Info) Description 04/26/2011 14:07 EDT - 04/26/2011 14:08 EDT Hospital Encounter [address] [address] Belle Pop PA [address] [place] [address] [address] [phone] Discharge Disposition: Home or Self Care Social [...] on file documented as of this encounter Medications at [...] on filedocumented in this encounter Care Teams Drill Operator Automatic Relationship Specialty Start Date End Date Prem Landrum MD [address] [place] [phone] PCP - General 04/18/11 12/29/13 documented as of this encounter
--- OUTSIDE RECORDS SUMMARY | 2024-03-02 02:27 | XMS_ITS | Encounter Summary ---
Author Organization [facility] Address [address] [place] [address] Care Team Providers Care Animal Cytologist Name Role Phone Unavailable Primary Care Provider Unavailabl e Encounter Details Date Type Department Care Team (Late st Contact Info) Description 08/07/2004 9:31 EST Hospital Encounter [facility] - Other [address] [place] [address] Nolberto Mac MD [address] [place] [phone] Social History Tobacco Use Types [...] the money to buy more. Never true 01/25/20 22 Within the past 12 months, t [...] slept in a assisted (including now)? No 09/12/2021 Interpersonal Safety Answer [...]
--- OUTSIDE RECORDS SUMMARY | 2024-03-02 02:27 | XMS_ITS | Encounter Summary ---
Author Organization [facility] Address [address] [place] [address] Care Team Providers Care Payment Poster Name Role Phone Nolberto Mac MD Primary Care Provider [phone] [phone] Encounter Details Date Type Department Care Team (Late st Contact Info) Description 05/12/2008 Before PRISM Converted Visit (Maple) [facility] - Maple conversion [address] [place] [address] Chetna Noble MD [address] [facility], [address] [place] [phone] Social History Tobacco Use Types Packs/Day Years Used Date Smoking Tobacco: Never Assessed Sex and Gender Information Value Date Recorded Sex Assigned at Not on file Gender Identity Male 10/27/2019 18:25 EDT Sexual Orientation Not on file documented as of this encounter Progress Notes * Chetna Noble MD - 03/10/2009 1851 EDT DIVISION OF OTOLARYNGOLOGY PROGRESS/FOLLOWUP NOTE - 05/12/2008 SUBJECTIVE Mr. Clayton is here today for follow up with plugging of his ears consistent with cerumen. OBJECTIVE On physical exam, under the microscope he was noted to have cerumen impactions bilaterally, which were removed with curet and alligator. Once this was done the canals and tympanic membranes were healthy appearing. ASSESSMENT Cerumen removed today. PLAN Follow up in six months. Signed by Chetna Noble MD 05/18/2008 12:08 Chetna Noble MD - Chetna Noble MD - LINDA Job ID: [id number] Doc ID: [id number] cc: Moe Mac MD documented in this encounter Plan of Treatment Not on file documented as of this encounter Visit Diagnoses Not on filedocumented in this encounter Care Teams Payment Poster Relationship Specialty Start Date End Date Nolberto Mac MD [address] [place] [phone] PCP - General 02/24/09 04/17/11 documented as of this encounter
--- OUTSIDE RECORDS SUMMARY | 2024-03-02 02:27 | XMS_ITS | Encounter Summary ---
Author Organization [facility] Address [address] [place] [address] Care Team Providers Care Pantograph I Engraver Name Role Phone Prem Landrum MD Primary Care Provider + [phone] Reason for Visit * Reason Comments Follow-up Encounter Details Date Type Department Care Team (Late st Contact Info) Description 11/02/2011 10:30 EDT Office Visit [facility] ENT- [address] [address] Chetna Noble MD [address] [facility], [address] [place] [address] Impacted cerumen; SNHL (sensorineural hearing loss) Social History Tobacco [...] Progress Notes * Chetna Noble MD - 11/02/2011 1211 EDT The patient is here today for a routine followup of cerumen removal. He also notes that recently hewent to have a hearing screening done and was found to have some decreased hearing and said he would like to get a hearing test as well today. OBJECTIVE: On physical exam his ears were first examined under the microscope. The canals are obstructed with cerumen and this was removed with suction and microinstrumentation. Once done, the canalsand TMs are healthy appearing. An audiogram was done. This shows normal hearing in the mid ranges; he had a mild decrease in the low frequencies, as well as the high-frequency in both ears. He has 100% discrimination bilaterally. ASSESSMENT: 1. Cerumen removed today. 2. Mild sensorineural hearing loss, which was discussed with the patient. I did not recommend any amplification at this time. PLAN: We will plan on routine followup for cerumen removal in about 3 months. documented in this encounter Procedure Notes * AIR GRINDER, SCAN 2 - 11/15/2011 1245 EDTAssociated Order(s): PROCEDURE REPORTS - SCANNED documented in this encounter Plan of Treatment Scheduled Orders Name Type Priority Associated Diagnoses Orde r Schedule HEARING EVALUATION Audiology Routine SNHL (sensorineural hearing loss) Ordered: 11/02/2011 documented as of this encounter Procedures Procedure Name Priority Date/Time Associated Diagnosis Comments PROCEDURE REPORTS - SCANNED 11/15/2011 12:45 EDT documented in this encounter Results * PROCEDURE REPORTS - SCANNED (11/15/2011 12:45 EDT) 11/15/2011 12:4 5 EDT Narrative Transcriptions AIR GRINDER, SCAN 2 - 11/15/2011 12:45 EDT Scan 2 Copper Tapper PROCEDURE/MINOR KANWAL GICAL ORDERABLES documented in this encounter Visit Diagnoses Diagnosis Impacted cerumen SNHL (sensorineural hearing loss) Sensorineural hearing loss, unspecified documented in this encounter Discontinued Medications Medication Sig Discontinue Reason Start Date End Da te aspirin chewable 81 mg tablet Take by mouth daily. 11/02/2011 multivitamin (MULTIPLE VITAMIN) per tablet Take 1 Tab by mouth daily. 11/02/2011 documented as of this encounter Care Teams Pantograph I Engraver Relationship Specialty Start Date End Date Prem Landrum MD [address] [address] PCP - General 04/18/11 12/29/13 documented as of this encounter
--- OUTSIDE RECORDS SUMMARY | 2024-03-02 02:27 | XMS_ITS | Encounter Summary ---
Author Organization [facility] Address [address] [place] [address] Care Team Providers Care Snack Bar Attendant Name Role Phone Unavailable Primary Care Provider Unavailabl e Encounter Details Date Type Department Care Team (Late st Contact Info) Description 05/12/2008 10:17 EDT Hospital Encounter [address] [address] Chetna Noble MD [address] [place] [address], [address] [place] [address] Social History Tobacco Use Types [...] place to sleep or slept in a care home (including now)? No 09/12/2021 Interpersonal Safety [...] Associated Diagnosis Comments COMPLETE BLOOD COUNT Routine 08/10/2008 11:30 EST PSA SCREEN Routine 08/10/2008 11:30 EST LIPID PROFILE (INCLUDES CHOLESTEROL, TRIGLYCERIDES, HDL, LDL) Routine 08/10/2008 11:30 EST COMPREHENSIVE METABOLIC PANEL (CMP) Routine 08/10/2008 11:30 EST documented in this encounter Results * PSA SCREEN (08/10/2008 11:30 EST) PSA 0.4 0 - 3.5 ng/ml [facility] Comment: Serum PSA concentration should not be interpreted as absolute evidence for the presence or absence of malignant disease. Assayed utilizing [employer] chemiluminescent technology. Values obtained by using different assay methods cannot be used interchangeably. PREVIOUS PSA RESULT ON 07/24/07 WAS 0.3 08/10/2008 11:3 0 EST 08/10/2008 14:54 EST Nolberto Mac MD CHEMISTRY & BLOOD GAS ORDERABLES Performing Organization Address [facility] de Phone Number [facility] [address] [place] [address] * (ABNORMAL) HEMAGRAM (08/10/2008 11:30 EST) WBC 7.08 4.0 - 10.4 K/cmm [facility] RBC 4.67 4.36 - 5.78 M/cmm [facility] Hemoglobin 15.5 13.8 - 17.3 gm/dl [facility] HCT 43.5 39.5 - 50.2 % [facility] MCV 93 81 - 95 fl [facility] MCH 33.2(H) 27.6 - 33.0 pg [facility] MCHC 35.6 32.8 - 36.4 gm/dl [facility] PLT 249 141 - 320 K/cmm [facility] RDW-CV 12.4 11.8 - 14.1 % [facility] 08/10/2008 11:3 0 EST 08/10/2008 14:54 EST Nolberto Mac MD HEMATOLOGY & PF4 ORDERABLES Performing Organization Address [facility] de Phone Number [facility] [address] [place] [address] * (ABNORMAL) LIPID PROFILE (08/10/2008 11:30 EST) Cholesterol 245 mg/dl [facility] Comment: Desirable:<200 Borderline High:200-239 High:>uv=823 Triglycerides 229(H) 35 - 160 mg/dl [facility] HDL 50 mg/dl [facility] Comment: Low:<40 High(Desirable):>or=60 LDL, Calculated 149 mg/dl [facility] Comment: Optimal:<100 Above optimal:100-129 Borderline High:130-159 High:160-189 Very High:>ad=766 Chol/HDL Ratio 4.9 [facility] Fasting? Yes [facility] 08/10/2008 11:3 0 EST 08/10/2008 14:54 EST Nolberto Mac MD CHEMISTRY & BLOOD GAS ORDERABLES [facility] [address] [place] [address] * COMPREHENSIVE METABOLIC PANEL (08/10/2008 11:30 EST) Pathologist [facility] Potassium 4.5 3.5 - 5.0 mEq/L [facility] Sodium 143 136 - 145 mEq/L [facility] Chloride 104 96 - 110 mEq/L [facility] CO2 29 24 - 32 mEq/L [facility] Alkaline Phosphatase 69 38 - 126 U/L [facility] Bilirubin, Total <0.5 0.2 - 1.3 mg/dl [facility] AST 31 15 - 46 U/L [facility] ALT 48 21 - 72 U/L [facility] Albumin 4.7 3.4 - 4.9 g/dl [facility] Total Protein 7.0 6.5 - 8.3 g/dl [facility] Creatinine 0.83 0.7 - 1.5 mg/dl [facility] GFR, Calculated >60 ml/min/1.7 3m2 [facility] BUN 17 10 - 26 mg/dl [facility] Calcium 9.1 8.5 - 10.5 mg/dl [facility] Calculated Calcium 8.8 8.5 - 10.5 mg/dl [facility] Glucose, Serum 80 70 - 100 mg/dl [facility] Fasting? Yes [facility] 08/10/2008 11:3 0 EST 08/10/2008 14:54 EST Nolberto Mac MD CHEMISTRY & BLOOD GAS ORDERABLES Performing Organization Address City/State/[place] [facility] de Phone Number [facility] [address] [place] [address] documented in this encounter Visit Diagnoses Not on filedocumented in this encounter
--- OUTSIDE RECORDS SUMMARY | 2024-03-02 02:27 | XMS_ITS | Encounter Summary ---
Author Organization [facility] Address [address] [place] [address] Care Team Providers Care Speech Language Specialist Name Role Phone Nolberto Mac MD Primary Care Provider [phone] Encounter Details Date Type Department Care Team (Late st Contact Info) Description 08/07/2004 Results Only [facility] [address] [place] [address] Nolberto Mac MD [address] [place] [address] Social History Tobacco Use Types [...] PROFILE (INCLUDES CHOLESTEROL, TRIGLYCERIDES, HDL, LDL) Routine 08/07/2004 9:45 EST documented in this encounter Results * LIPID PROFILE (INCLUDES CHOLESTEROL, TRIGLYCERIDES, HDL, LDL) (08/07/2004 9:45 EST) Cholesterol 262 mg/dl [facility] Comment: Desirable:<200 Borderline:200-239 High Risk:>lo=516 Triglycerides 130 35 - 160 mg/dl [facility] HDL 54 mg/dl [facility] Comment: Highly Desirable:>60 Desirable:35-60 High Risk:<35 LDL, Calculated 182 mg/dl [facility] Comment: Desirable:<130 Borderline:130-159 High Risk:>fn=690 Chol/HDL Ratio 4.9 [facility] Fasting? Unknown [facility] 08/07/2004 9:45 EST 08/07/2004 14:15 EST Nolberto Mac MD CHEMISTRY & BLOOD GAS ORDERABLES Performing Organization Address City/State/[facility] Co de Phone Number [facility] [address] [place] [address] documented in this encounter Visit Diagnoses Not on filedocumented in this encounter Care Teams Speech Language Specialist Relationship Specialty Start Date End Date Nolberto Mac MD [address] [place] [address] PCP - General 02/24/09 04/17/11 documented as of this encounter
--- OUTSIDE RECORDS SUMMARY | 2024-03-02 02:27 | XMS_ITS | Encounter Summary ---
Author Organization [facility] Address [address] [place] [address] Care Team Providers Care Junior Technical Writer Name Role Phone Nolberto Mac MD Primary Care Provider [phone] Encounter Details Date Type Department Care Team (Latest Contact Info) Description 12/25/2010 11:28 EDT - 12/25/2010 11:29 EDT Hospital Encounter [facility] [address] [place] [address] Nolberto Mac MD [address] [place] [address] Discharge Disposition: Home or Self Care [...] on filedocumented in this encounter Care Teams Junior Technical Writer Relationship Specialty Start Date End Date Nolberto Mac MD [address] [place] [address] PCP - General 02/24/09 04/17/11 documented as of this encounter
--- OUTSIDE RECORDS SUMMARY | 2024-03-02 02:27 | XMS_ITS | Encounter Summary ---
Author Organization [facility] Address [address] [place] [address] Care Team Providers Care Beef Grinder Name Role Phone Nolberto Mac MD Primary Care Provider [phone] Reason for Visit * Reason Comments Cerumen Impaction Encounter Details Date Type Department Care Team (Late st Contact Info) Description 09/06/2010 11:00 EST Office Visit [facility] [address] [place], [place] [address] Chetna Noble MD [address] [facility], [address] [place] [address] Impacted cerumen (Primary Dx) Social History Tobacco Use Types Packs/Day Years Used Date Smoking Tobacco: Never Assessed Sex and Gender Information Value Date Recorded Sex Assigned at Not on file Gender Identity Male 10/27/2019 18:25 EDT Sexual Orientation Not on file documented as of this encounter Progress Notes * Chetna Noble MD - 09/06/2010 1112 EST Pt is here today for removal of cerumen. PE - Ears - cerumen is occluding the ear canals bilat, with the microscope cerumen is removed with a #7 suction and an alligator, TMs and canals are wnl A - Cerumen removed P - f/u in 3 mos documented in this encounter Plan of Treatment Not on file documented as of this encounter Visit Diagnoses Diagnosis Impacted cerumen- Primary documented in this encounter Care Teams Beef Grinder Relationship Specialty Start Date End Date Nolberto Mac MD [address] [place] [address] PCP - General 02/24/09 04/17/11 documented as of this encounter
--- OUTSIDE RECORDS SUMMARY | 2024-03-02 02:27 | XMS_ITS | Encounter Summary ---
Author Organization [facility] Address [address] [place] [address] Care Team Providers Care Mosaic Worker Name Role Phone Nolberto Mac MD Primary Care Provider [phone] Encounter Details Date Type Department Care Team (Late st Contact Info) Description 06/27/[address] [address] Chetna Noble MD [address] [place] [address], [address] [place] [phone] Impacted Cerumen Social History Tobacco Use Types Packs/Day Years Used Date Smoking Tobacco: Never Assessed Sex and Gender Information Value Date Recorded Sex Assigned at Not on file Gender Identity Male 10/27/2019 18:25 EDT Sexual Orientation Not on file documented as of this encounter Plan of Treatment Not on file documented as of this encounter Visit Diagnoses Diagnosis Impacted cerumen documented in this encounter Care Teams Mosaic Worker Relationship Specialty Start Date End Date Nolberto Mac MD [address] [place] [phone] PCP - General 02/24/09 04/17/11 documented as of this encounter
--- OUTSIDE RECORDS SUMMARY | 2024-03-02 02:27 | XMS_ITS | Encounter Summary ---
Author Organization [facility] Address [address] [place] [address] Care Team Providers Care Sorter Packer Name Role Phone Prem Landrum MD Primary Care Provider + [phone] Reason for Visit * Reason Comments Cerumen Impaction Encounter Details Date Type Department Care Team (Late st Contact Info) Description 04/18/2011 9:55 EDT Office Visit [address] [address] Chetna Noble MD [address] [facility], [address] [place] [address] Impacted cerumen (Primary Dx) Social [...] Progress Notes * Chetna Noble MD - 04/18/2011 0942 EDT Pt here for cerumen removal. NO problems since his last visit. PE - Ears - canals occluded with cerumen bilat, removed under microscope with curette, #7 suction and alligator, once done, the canals and TMs are wnl A - Cerumen removed P - f/u in 3 mos documented in this encounter Plan of Treatment Not on file documented as of this encounter Visit Diagnoses Diagnosis Impacted cerumen- Primary documented in this encounter Care Teams Sorter Packer Relationship Specialty Start Date End Date Prem Landrum MD [address] [address] PCP - General 04/18/11 12/29/13 documented as of this encounter
--- OUTSIDE RECORDS SUMMARY | 2024-03-02 02:27 | XMS_ITS | Encounter Summary ---
Author Organization [facility] Address [address] [place] [address] Care Team Providers Care Naval Aircrewman Helicopter Name Role Phone Unavailable Primary Care Provider Unavailabl e Encounter Details Date Type Department Care Team (Late st Contact Info) Description 05/15/1999 8:43 EDT - 05/15/1999 11:59 EDT Hospital Encounter [address] [address] Kirk Soto MD [address] [place] [address] Discharge Disposition: Auto Discharge Social History Tobacco [...]
--- OUTSIDE RECORDS SUMMARY | 2024-03-02 02:27 | XMS_ITS | Encounter Summary ---
Author Organization [facility] Address [address] [place] [address] Care Team Providers Care Theatre Instructor Name Role Phone Unavailable Primary Care Provider Unavailabl e Encounter Details Date Type Department Care Team (Late st Contact Info) Description 12/24/2007 10:37 EDT Hospital Encounter [facility] [address] [place] [address] Gabriel Timmons MD [address] [place] [address] Social History Tobacco Use Types Packs/Day Years [...] slept in a intermediate (including now)? No 09/12/2021 Interpersonal Safety Answer [...]
--- OUTSIDE RECORDS SUMMARY | 2024-03-02 02:27 | XMS_ITS | Encounter Summary ---
Author Organization [facility] Address [address] [place] [address] Care Team Providers Care Gas Station Cashier Name Role Phone Unavailable Primary Care Provider Unavailabl e Encounter Details Date Type Department Care Team ([facility] st Contact Info) Description 06/07/1999 15:40 EDT Hospital Encounter [facility] - Other [address] [place] [address] Manuel Morris MD [address] [place] [address] Unknown, ProviderMD Social History Tobacco Use Types Packs/Day Years [...] to sleep or slept in a senior care (including now)? No 09/12/2021 Interpersonal Safety Answer [...]
--- OUTSIDE RECORDS SUMMARY | 2024-03-02 02:27 | XMS_ITS | Encounter Summary ---
Author Organization [facility] Address [address] [place] [address] Care Team Providers Care Newspaper Clipper Name Role Phone Prem Landrum MD Primary Care Provider + [phone] Encounter Details Date Type Department Care Team (Late st Contact Info) Description 04/26/2011 Results Only [facility] [place] [phone] Edwin Pop, ZEUS [address],[facility] [address] [place] [address] Social History Tobacco Use Types Packs/Day Years [...] Procedure Name Priority Date/Time Associated Diagnosis Comments SURGICAL PATHOLOGY Routine 04/26/2011 0:00 EDT documented in this encounter Results * SURGICAL PATHOLOGY (04/26/2011 0:00 EDT) Pathology Report: SURGICAL PATHOLOGY REPORT ? Reports generated via electronic interface contain original data; ? however they are lacking the format of the original report. ? Caution should be taken when reading/interpreti ng unformatted reports. ? Name: ? LUIS MILIAN J ? Accession #: ? [id number] ? : ? 1950 (Age: 60) ??M ? Collect Date: ? 04/26/2011 ? Location: ? [facility] ? Receive Date: ? 04/26/2011 ? Provider: EDWIN SCHULZ ? Copy to: ? Final Pathologic Diagnosis: ? Skin of finger, right distal dorsal pinky, shave biopsy: ? - Superficial shave biopsy of skin with features suggestive of digital mucous ?? cyst. ??See comment. ? Comment: ? Multiple sections of the biopsy were reviewed. ??At the base of the biopsy, there is a thin rim of myxoid stroma surrounding a space resembling a ? pseudocyst. ??These features are most suggestive of a benign digital mucous cyst. (Dr. Romo)/marshan ? Microscopic Description: ? Sections consist of a bisected shave biopsy of skin that transects the ? superficial epidermis. ??The stratum corneum is composed of a thick layer of ? compact keratin, consistent with acral site. ??The epidermis varies in thickness with an area of thinning and diminished rete ridge pattern at one edge. ??There ?? is overlying parakeratosis. ??The base of the biopsy has a thin rim of myxoid ? stroma and a suggestion of a cystic space that is not lined by epithelium. ? Deeper sections show similar features. ??(Dr. Romo)/emmy ? Document reviewed and electronically signed by: ? BHUPINDER ROMO MD ? Report ??Date: 04/30/2011 16:28 ? By the signature above, the attending physician certifies that he/she has ? personally conducted a gross and/or microscopic examination of the described ? specimens and rendered or confirmed the above diagnosis. ? Specimen(s) Received: ? Right distal pinky finger ? Clinical History: ? Cyst vs other; clinical diagnosis code: 238.2 ? Gross Description: ? Received in formalin labelled Demarais, Luis and right distal dorsal ?? lulu finger is a 0.5 x 0.4 cm, irregular shave biopsy of [facility] ? slightly crusted skin. ??The specimen is bisected and entirely submitted in a ? single cassette. ??(John Back)/[facility] ? End of Report ? [facility] 04/26/2011 04/26/2011 13: 41 EDT Edwin SCHULZ PATHOLOGY ORDERABLE S [facility] [address] [place] [address] documented in this encounter Visit Diagnoses Not on filedocumented in this encounter Care Teams Newspaper Clipper Relationship Specialty Start Date End Date Prem Landrum MD [address] [place] [phone] PCP - General 04/18/11 12/29/13 documented as of this encounter
--- OUTSIDE RECORDS SUMMARY | 2024-03-02 02:27 | XMS_ITS | Encounter Summary ---
Author Organization [facility] Address [address] [place] [address] Care Team Providers Care Form Grader Name Role Phone Unavailable Primary Care Provider Unavailabl e Encounter Details Date Type Department Care Team (Latest Contact Info) Description 08/10/2008 15:51 EST Hospital Encounter [facility] - Other [address] [place] [address] Nolberto Mac MD [address] [place] [address] Discharge Disposition: Home or Self Care [...]
--- OUTSIDE RECORDS SUMMARY | 2024-03-02 02:27 | XMS_ITS | Encounter Summary ---
Author Organization [facility] Address [address] [place] [address] Care Team Providers Care Communication Skills Instructor Name Role Phone Nolberto Mac MD Primary Care Provider +1 [phone] Encounter Details Date Type Department Care Team (Late st Contact Info) Description 01/04/[address] [facility] - Maple conversion [address] [place] [address] Nolberto Mac MD [address] [place] [phone] Social History Tobacco Use Types Packs/Day Years [...] Date/Time Associated Diagnosis Comments THYROID CASCADE Routine 01/04/2004 10:35 EDT COMPLETE BLOOD COUNT Routine 01/04/2004 10:35 EDT PSA SCREEN Routine 01/04/2004 10:35 EDT LIPID PROFILE (INCLUDES CHOLESTEROL, TRIGLYCERIDES, HDL, LDL) Routine 01/04/2004 10:35 EDT COMPREHENSIVE METABOLIC PANEL (CMP) Routine 01/04/2004 10:35 EDT documented in this encounter Results * THYROID CASCADE (01/04/2004 10:35 EDT) TSH 0.94 0.35 - 5.50 uIU/ml [facility] Comment: TSH cascade is not recommended for patients in which pituitary or hypothalamic disorders are suspected. 01/04/2004 10:3 5 EDT 01/04/2004 14:37 EDT Nolberto Mac MD CHEMISTRY & BLOOD GAS ORDERABLES Performing Organization Address [facility] de Phone Number [facility] [address] [place] [address] * PSA SCREEN (01/04/2004 10:35 EDT) PSA 0.3 0 - 3.5 ng/ml [facility] Comment: Serum PSA concentration should not be interpreted as absolute evidence for the presence or absence of malignant disease. Assayed utilizing OneWire chemiluminescent technology. Values obtained by using different assay methods cannot be used interchangeably. Assay changed to equimolar method 02/17/01. 01/04/2004 10:3 5 EDT 01/04/2004 14:37 EDT Nolberto Mac MD CHEMISTRY & BLOOD GAS ORDERABLES Performing Organization Address [facility] de Phone Number [facility] [address] [place] [address] * LIPID PROFILE (INCLUDES CHOLESTEROL, TRIGLYCERIDES, HDL, LDL) (01/04/2004 10:35 EDT) Cholesterol 277 mg/dl [facility] Comment: Desirable:<200 Borderline:200-239 High Risk:>pi=239 Fasting Triglycerides 143 35 - 160 mg/dl [facility] Comment:Fasting HDL 57 mg/dl [facility] Comment: Highly Desirable:>60 Desirable:35-60 High Risk:<35 Fasting LDL, Calculated 191 mg/dl [facility] Comment: Desirable:<130 Borderline:130-159 High Risk:>yb=765 Fasting Chol/HDL Ratio 4.9 Fasting [facility] 01/04/2004 10:3 5 EDT 01/04/2004 14:37 EDT Nolberto Mac MD CHEMISTRY & BLOOD GAS ORDERABLES [facility] [address] [place] [address] * COMPREHENSIVE METABOLIC PANEL (01/04/2004 10:35 EDT) Potassium 4.2 3.5 - 5.0 mEq/L [facility] Comment:Fasting Sodium 140 136 - 145 mEq/L [facility] Comment:Fasting Chloride 99 96 - 110 mEq/L [facility] Comment:Fasting CO2 30 24 - 32 mEq/L [facility] Comment:Fasting Total Alkaline Phosphatase 80 38 - 126 U/L [facility] Comment:Fasting Bilirubin, Total 0.7 0.2 - 1.3 mg/dl [facility] Comment:Fasting AST 29 15 - 46 U/L [facility] Comment:Fasting ALT 38 21 - 72 U/L [facility] Comment:Fasting Albumin 4.6 3.4 - 4.9 g/dl [facility] Comment:Fasting Total Protein 7.6 6.5 - 8.0 g/dl [facility] Comment:Fasting Creatinine 0.9 0.7 - 1.5 mg/dl [facility] Comment:Fasting BUN 16 10 - 26 mg/dl [facility] Comment:Fasting Calcium 8.8 8.5 - 10.5 mg/dl [facility] Comment:Fasting Calculated Calcium 8.6 8.5 - 10.5 mg/dl [facility] Comment:Fasting Glucose, Serum 86 70 - 110 mg/dl [facility] Comment:Fasting Albumin/Globulin Ratio 1.5 Fasting [facility] 01/04/2004 10:3 5 EDT 01/04/2004 14:37 EDT Nolberto Mac MD CHEMISTRY & BLOOD GAS ORDERABLES [facility] [address] [place] [address] * HEMAGRAM (01/04/2004 10:35 EDT) WBC 5.95 4.0 - 10.4 K/cmm [facility] RBC 4.82 4.36 - 5.78 M/cmm [facility] Hemoglobin 15.4 13.8 - 17.3 gm/dl [facility] HCT 44.6 39.5 - 50.2 % [facility] MCV 92 81 - 95 fl [facility] MCH 32.0 27.6 - 33.0 pg [facility] MCHC 34.6 32.8 - 36.4 gm/dl [facility] PLT 279 141 - 320 K/cmm [facility] RDW-CV 13.0 11.8 - 14.1 % [facility] 01/04/2004 10:3 5 EDT 01/04/2004 14:37 EDT Nolberto Mac MD HEMATOLOGY & PF4 ORDERABLES Performing Organization Address City/State/[facility] Co de Phone Number [facility] [address] [place] [address] documented in this encounter Visit Diagnoses Not on filedocumented in this encounter Care Teams Communication Skills Instructor Relationship Specialty Start Date End Date Nolberto Mac MD [address] [place] [address] PCP - General 02/24/09 04/17/11 documented as of this encounter
--- OUTSIDE RECORDS SUMMARY | 2024-03-02 02:27 | XMS_ITS | Encounter Summary ---
Author Organization [facility] Address [address] [place] [address] Care Team Providers Care Curtain Stretcher Assembler Name Role Phone Nolberto Mac MD Primary Care Provider +1 [phone] Reason for Visit * Reason Comments Follow-up 3 mo f/u cerumen imp action Encounter Details Date Type Department Care Team (Late st Contact Info) Description 06/07/2010 11:35 EDT Office Visit [facility] ENT- [address] [address] Chetna Noble MD [address] [facility], [address] [place] [address] Impacted cerumen (Primary Dx) Social History Tobacco Use Types Packs/Day Years Used Date Smoking Tobacco: Never Assessed Sex and Gender Information Value Date Recorded Sex Assigned at Not on file Gender Identity Male 10/27/2019 18:25 EDT Sexual Orientation Not on file documented as of this encounter Progress Notes * Chetna Noble MD - 06/07/2010 1213 EDT Pt here for cerumen removal. PE - Ears - canals both occluded with cerumen, removed under microscope with insturments and suction, once done, canals and TMs are healthy A - Cerumen removed P - f/u in 3 mos documented in this encounter Plan of Treatment Not on file documented as of this encounter Visit Diagnoses Diagnosis Impacted cerumen- Primary documented in this encounter Care Teams Curtain Stretcher Assembler Relationship Specialty Start Date End Date Nolberto Mac MD [address] [place] [address] PCP - General 02/24/09 04/17/11 documented as of this encounter
--- OUTSIDE RECORDS SUMMARY | 2024-03-02 02:27 | XMS_ITS | Encounter Summary ---
Author Organization [facility] Address [address] [place] [address] Care Team Providers Care Club Manager Name Role Phone Prem Landrum MD Primary Care Provider + [phone] Reason for Visit * Reason Comments Follow-up Encounter Details Date Type Department Care Team (Late st Contact Info) Description 07/17/2011 10:30 EST Office Visit [facility]- [address] [phone] Chetna Noble MD [address] [place] [address], [address] [place] [address] Impacted cerumen (Primary Dx) Social [...] Progress Notes * Chetna Noble MD - 07/17/2011 1220 EST Pt here for cerumen removal PE - ears - canals obsturcted with cerumen, under microscope removed with a #7 suction, once done the canals and TMs are healthy A - cerumen - removed P - f/u in 3 mos documented in this encounter Plan of Treatment Not on file documented as of this encounter Visit Diagnoses Diagnosis Impacted cerumen- Primary documented in this encounter Historical Medications * This list may reflect changes made after this encounter. Medication Sig Dispensed Refills Start Date End Date aspirin chewable 81 mg tablet Take by mouth daily. 012 added in this encounter Care Teams Club Manager Relationship Specialty Start Date End Date Prem Landrum MD [address] [address] PCP - General 04/18/11 12/29/13 documented as of this encounter
--- OUTSIDE RECORDS SUMMARY | 2024-03-02 02:27 | XMS_ITS | Encounter Summary ---
Author Organization [facility] Address [address] [place] [address] Care Team Providers Care Licsw Name Role Phone Unavailable Primary Care Provider Unavailabl e Encounter Details Date Type Department Care Team (Late st Contact Info) Description 09/17/2000 7:58 EST Hospital Encounter [address] [address] Manuel Morris MD [address] [place] [address] Social History Tobacco Use Types Packs/Day Years [...] No 09/12/2021 Housing Stability Vital Sign Answer Lvei e Recorded In the last 12 months, [...] place to sleep or slept in a jail (including now)? No 09/12/2021 Interpersonal Safety Answer [...] PROFILE (INCLUDES CHOLESTEROL, TRIGLYCERIDES, HDL, LDL) Routine 09/17/2000 8:00 EST documented in this encounter Results * (ABNORMAL) LIPID PROFILE (INCLUDES CHOLESTEROL, TRIGLYCERIDES, HDL, LDL) (09/17/2000 8:00 EST) Cholesterol 258 mg/dl [facility] Comment: Desirable:<200 Borderline:200-239 High Risk:>ej=317 Moderate hemolysis Triglycerides 208(H) 35 - 160 mg/dl [facility] Comment:Moderate hemolysis HDL 47 mg/dl [facility] Comment: Highly Desirable:>60 Desirable:35-60 High Risk:<35 Fasting Moderate hemolysis LDL, Calculated 169 mg/dl [facility] Comment: Desirable:<130 Borderline:130-159 High Risk:>au=[id number] Fasting Moderate hemolysis Chol/HDL Ratio 5.5 Fasting Moderate hemolysis [facility] 09/17/2000 8:00 EST 09/17/2000 8:04 EST Manuel Morris MD CHEMISTRY & BLOOD GAS ORDERABLES [facility] [address] [place] [address] documented in this encounter Visit Diagnoses Not on filedocumented in this encounter
--- OUTSIDE RECORDS SUMMARY | 2024-03-02 02:27 | XMS_ITS | Encounter Summary ---
Author Organization [facility] Address [address] [place] [address] Care Team Providers Care Learning Designer Name Role Phone Nolberto Mac MD Primary Care Provider [phone] [phone] Encounter Details Date Type Department Care Team (Late st Contact Info) Description 01/06/2010 Abstract Used for ABSTRACTING Data [phone] Nolberto Mac MD [address] [place] [address] Social History Tobacco Use Types [...] on filedocumented in this encounter Care Teams Learning Designer Relationship Specialty Start Date End Date Nolberto Mac MD [address] [place] [address] PCP - General 02/24/09 04/17/11 documented as of this encounter
--- OUTSIDE RECORDS SUMMARY | 2024-03-02 02:27 | XMS_ITS | Encounter Summary ---
Author Organization [facility] Address [address] [place] [address] Care Team Providers Care Agricultural Engineering Teacher Name Role Phone Nolberto Mac MD Primary Care Provider +1 [phone] Encounter Details Date Type Department Care Team (Late st Contact Info) Description 12/25/2010 Results Only [facility] ([facility]) [address] [place], [place] [id number] Nolberto Mac MD [address] [place] [phone] Social History Tobacco Use Types Packs/Day Years [...] Associated Diagnosis Comments COMPLETE BLOOD COUNT Routine 12/25/2010 9:20 EDT PSA SCREEN Routine 12/25/2010 9:20 EDT LIPID PROFILE (INCLUDES CHOLESTEROL, TRIGLYCERIDES, HDL, LDL) Routine 12/25/2010 9:20 EDT BASIC METABOLIC PANEL (BMP) Routine 12/25/2010 9:20 EDT documented in this encounter Results * PSA SCREEN (12/25/2010 9:20 EDT) PSA 0.3 0 - 4.5 ng/ml [facility] Comment: ??Serum PSA concentration should not be interpreted as absolute evidence for the presence or absence of malignant disease. ?? Assayed utilizing Omid chemiluminescent technology. Values obtained by using different assay methods cannot be used interchangeably. 12/25/2010 9:20 EDT 12/25/2010 13:50 EDT Nolberto Mac MD CHEMISTRY & BLOOD GAS ORDERABLES Performing Organization Address [facility] Co de Phone Number [facility] [address] [place] [address] * (ABNORMAL) LIPID PROFILE (INCLUDES CHOLESTEROL, TRIGLYCERIDES, HDL, LDL) (12/25/2010 9:20 EDT) Cholesterol 271 mg/dl [facility] Comment:Desirable:<200 Borde rline High:200-239 High:>ac=246 Triglycerides 274(H) 35 - 160 mg/dl [facility] HDL 50 mg/dl [facility] Comment:Low:<40 High(Desirab le):>or=60 LDL, Calculated 166 mg/dl [facility] Comment: Optimal:<100 Above optimal:100-129 Borderline High:130-159 High:160-189 Very High:>jf=908 Chol/HDL Ratio 5.4 [place] CALL Fasting? Yes [facility] 12/25/2010 9:20 EDT 12/25/2010 13:50 EDT Nolberto Mac MD CHEMISTRY & BLOOD GAS ORDERABLES Performing Organization Address [facility] Co de Phone Number [facility] [address] [place] [address] * (ABNORMAL) HEMAGRAM (12/25/2010 9:20 EDT) WBC 6.46 4.0 - 10.4 K/cmm [facility] RBC 4.84 4.36 - 5.78 M/cmm [facility] Hemoglobin 16.1 13.8 - 17.3 gm/dl [facility] HCT 45.8 39.5 - 50.2 % [facility] MCV 94 81 - 95 fl [facility] MCH 33.2(H) 27.6 - 33.0 pg [facility] MCHC 35.1 32.8 - 36.4 gm/dl [facility] PLT 256 141 - 320 K/cmm [facility] RDW-CV 13.0 11.8 - 14.1 % [facility] 12/25/2010 9:20 EDT 12/25/2010 13:50 EDT Nolberto Mac MD HEMATOLOGY & PF4 ORDERABLES Performing Organization Address City/[facility] Co de Phone Number [facility] [address] [place] [address] * BASIC METABOLIC PANEL (12/25/2010 9:20 EDT) Sodium 141 136 - 145 mEq/L [facility] Potassium 4.5 3.5 - 5.0 mEq/L [facility] Chloride 101 96 - 110 mEq/L [facility] CO2 30 24 - 32 mEq/L [facility] BUN 19 10 - 26 mg/dl [facility] Creatinine 0.75 0.7 - 1.5 mg/dl [facility] GFR, Calculated >60 ml/min/1.7 3m2 [facility] Calcium 9.1 8.5 - 10.5 mg/dl [facility] Calculated Calcium 9.0 8.5 - 10.5 mg/dl [facility] Glucose, Serum 90 70 - 100 mg/dl [facility] Fasting? Yes [facility] 12/25/2010 9:20 EDT 12/25/2010 13:50 EDT Nolberto Mac MD CHEMISTRY & BLOOD GAS ORDERABLES Performing Organization Address [facility] Co de Phone Number [facility] [address] [place] [address] documented in this encounter Visit Diagnoses Not on filedocumented in this encounter Care Teams Agricultural Engineering Teacher Relationship Specialty Start Date End Date Nolberto Mac MD [address] [place] [address] PCP - General 02/24/09 04/17/11 documented as of this encounter
--- OUTSIDE RECORDS SUMMARY | 2024-03-02 02:27 | XMS_ITS | Encounter Summary ---
Author Organization [facility] Address [address] [place] [address] Care Team Providers Care Home Theater Installer Name Role Phone Nolberto Mac MD Primary Care Provider +1 [phone] Encounter Details Date Type Department Care Team (Late st Contact Info) Description 12/24/2007 Before PRISM Converted Visit (Maple) [facility] - Maple conversion [address] [place] [address] Gabriel Timmons MD [address] [place] [phone] Social History Tobacco Use Types Packs/Day Years Used Date Smoking Tobacco: Never Assessed Sex and Gender Information Value Date Recorded Sex Assigned at Not on file Gender Identity Male 10/27/2019 18:25 EDT Sexual Orientation Not on file documented as of this encounter Progress Notes * Gabriel Timmons MD - 05/20/2009 0920 EDT DIVISION OF OTOLARYNGOLOGY PROGRESS/FOLLOWUP NOTE - 12/24/2007 PROBLEM Cerumen impaction. SUBJECTIVE This is a 57-year-old gentleman, generally followed by Dr. Noble, with complaint of hearing loss with cerumen impaction partially d??brided by Dr. Licona. He continues to have some difficulties. He states that he has been followed by Dr. Noble for a number of years. Unfortunately he is unable to secure a timely appointment. OBJECTIVE Both ears reveal impaction of moderate firm to pasty cerumen. Under the operating microscope this is d??brided. No other abnormalities. IMPRESSION Bilateral cerumen impaction, bilateral microscopic debridement. DISCHARGE INSTRUCTIONS I suggested that he schedule a routine appointment with Dr. Noble for regular examination and debridement. He was last assessed two years ago, therefore, annual assessment should be adequate. Signed by Gabriel Timmons MD 01/02/2008 13:50 Gabriel Timmons MD - Gabriel Timmons MD - ADRIANO Job ID: [id number] Doc ID: [id number] cc: Moe Mac MD documented in this encounter Plan of Treatment Not on file documented as of this encounter Visit Diagnoses Not on filedocumented in this encounter Care Teams Home Theater Installer Relationship Specialty Start Date End Date Nolberto Mac MD [address] [place] [phone] PCP - General 02/24/09 04/17/11 documented as of this encounter
--- OUTSIDE RECORDS SUMMARY | 2024-03-02 02:27 | XMS_ITS | Encounter Summary ---
Author Organization [facility] Address [address] [place] [address] Care Team Providers Care Safety Relief Valve Technician Name Role Phone Nolberto Mac MD Primary Care Provider +1 [phone] Reason for Visit * Reason Comments Cerumen Impaction Encounter Details Date Type Department Care Team (Late st Contact Info) Description 03/03/2010 14:45 EDT Office Visit [address] [phone] Chetna Noble MD [address] [facility], [address] [place] [address] Impacted cerumen (Primary Dx) Social History Tobacco Use Types Packs/Day Years Used Date Smoking Tobacco: Never Assessed Sex and Gender Information Value Date Recorded Sex Assigned at Not on file Gender Identity Male 10/27/2019 18:25 EDT Sexual Orientation Not on file documented as of this encounter Progress Notes * Chetna Noble MD - 03/03/2010 7008 EDT Pt here today for cerumen removal, pt also has itchy ears PE-Ears reveal the canals are both completely obstructed with cerumen - removed under the microscope A-Cerumen removed, itchy ears P-Given rx for Elocon creme for itchy ears, f/u in 3 mos documented in this encounter Plan of Treatment Not on file documented as of this encounter Visit Diagnoses Diagnosis Impacted cerumen- Primary documented in this encounter Care Teams Safety Relief Valve Technician Relationship Specialty Start Date End Date Nolberto Mac MD [address] [place] [address] PCP - General 02/24/09 04/17/11 documented as of this encounter
--- OUTSIDE RECORDS SUMMARY | 2024-03-02 02:27 | XMS_ITS | Encounter Summary ---
Author Organization [facility] Address [address] [place] [address] Care Team Providers Care Ocean Export Account Manager Name Role Phone Nolberto Mac MD Primary Care Provider +1 [phone] Encounter Details Date Type Department Care Team (Late st Contact Info) Description 06/05/2002 Results Only [facility] - Maple conversion [address] [place] [address] Manuel Morris MD [address] [place] [address] Social History Tobacco Use Types Packs/Day Years [...] Date/Time Associated Diagnosis Comments PSA SCREEN Routine 06/05/2002 8:35 EDT documented in this encounter Results * PSA SCREEN (06/05/2002 8:35 EDT) PSA 0.3 0 - 3.5 ng/ml [facility] Comment: Serum PSA concentration should not be interpreted as absolute evidence for the presence or absence of malignant disease. Assayed utilizing Fineline chemiluminescent technology. Values obtained by using different assay methods cannot be used interchangeably. Assay changed to equimolar method 02/17/01. 06/05/2002 8:35 EDT 06/05/2002 15:26 EDT Manuel Morris MD CHEMISTRY & BLOOD GAS ORDERABLES [facility] [address] [place] [address] documented in this encounter Visit Diagnoses Not on filedocumented in this encounter Care Teams Ocean Export Account Manager Relationship Specialty Start Date End Date Nolberto Mac MD [address] [place] [address] PCP - General 02/24/09 04/17/11 documented as of this encounter
--- OUTSIDE RECORDS SUMMARY | 2024-03-02 02:27 | XMS_ITS | Encounter Summary ---
Author Organization [facility] Address [address] [place] [address] Care Team Providers Care Senior Analyst Programmer Name Role Phone Unavailable Primary Care Provider Unavailabl e Encounter Details Date Type Department Care Team ([facility] st Contact Info) Description 06/05/2002 14:10 EDT Hospital Encounter [facility] - Other [address] [place] [address] Manuel Morris MD [address] [place] [phone] Unknown, ProviderMD Social History Tobacco Use Types [...] place to sleep or slept in a penitentiary (including now)? No 09/12/2021 Interpersonal Safety Answer [...]
--- OUTSIDE RECORDS SUMMARY | 2024-03-02 02:27 | XMS_ITS | Encounter Summary ---
Author Organization [facility] Address [address] [place] [address] Care Team Providers Care Android Ios Developer Name Role Phone Nolberto Mac MD Primary Care Provider [phone] [phone] Encounter Details Date Type Department Care Team (Late st Contact Info) Description 07/24/2007 Results Only [facility] [address] [place] [address] Nolberto Mac MD [address] [place] [phone] Social History Tobacco Use Types Packs/Day Years [...] Associated Diagnosis Comments COMPLETE BLOOD COUNT Routine 07/24/2007 10:30 EST PSA SCREEN Routine 07/24/2007 10:30 EST LIPID PROFILE (INCLUDES CHOLESTEROL, TRIGLYCERIDES, HDL, LDL) Routine 07/24/2007 10:30 EST COMPREHENSIVE METABOLIC PANEL (CMP) Routine 07/24/2007 10:30 EST documented in this encounter Results * PSA SCREEN (07/24/2007 10:30 EST) PSA 0.3 0 - 3.5 ng/ml [facility] Comment: Serum PSA concentration should not be interpreted as absolute evidence for the presence or absence of malignant disease. Assayed utilizing Gigathlete chemiluminescent technology. Values obtained by using different assay methods cannot be used interchangeably. 07/24/2007 10:3 0 EST 07/24/2007 14:12 EST Nolberto Mac MD CHEMISTRY & BLOOD GAS ORDERABLES Performing Organization Address [facility] Phone Number [facility] [address] [place] [address] * (ABNORMAL) LIPID PROFILE (INCLUDES CHOLESTEROL, TRIGLYCERIDES, HDL, LDL) (07/24/2007 10:30 EST) Cholesterol 234 mg/dl [facility] Comment: Desirable:<200 Borderline:200-239 High Risk:>ip=397 Triglycerides 178(H) 35 - 160 mg/dl [facility] HDL 56 mg/dl [facility] Comment: Highly Desirable:>60 Desirable:35-60 High Risk:<35 LDL, Calculated 142 mg/dl [facility] Comment: Desirable:<130 Borderline:130-159 High Risk:>xl=922 Chol/HDL Ratio 4.2 [facility] Fasting? Yes [facility] 07/24/2007 10:3 0 EST 07/24/2007 14:12 EST Nolberto Mac MD CHEMISTRY & BLOOD GAS ORDERABLES Performing Organization Address [facility] Phone Number [facility] [address] [place] [address] * (ABNORMAL) COMPREHENSIVE METABOLIC PANEL (07/24/2007 10:30 EST) Potassium 4.2 3.5 - 5.0 mEq/L [facility] Sodium 141 136 - 145 mEq/L [facility] Chloride 105 96 - 110 mEq/L [facility] CO2 23(L) 24 - 32 mEq/L [facility] Total Alkaline Phosphatase 88 38 - 126 U/L [facility] Bilirubin, Total <0.5 0.2 - 1.3 mg/dl [facility] AST 28 15 - 46 U/L [facility] ALT 43 21 - 72 U/L [facility] Albumin 4.2 3.4 - 4.9 g/dl [facility] Total Protein 7.8 6.5 - 8.3 g/dl [facility] Creatinine 0.79 0.7 - 1.5 mg/dl [facility] GFR, Calculated >60 ml/min/1.7 3m2 [facility] BUN 15 10 - 26 mg/dl [facility] Calcium 9.2 8.5 - 10.5 mg/dl [facility] Calculated Calcium 9.4 8.5 - 10.5 mg/dl [facility] Glucose, Serum 96 70 - 100 mg/dl [facility] Fasting? Yes [facility] 07/24/2007 10:3 0 EST 07/24/2007 14:12 EST Nolberto Mac MD CHEMISTRY & BLOOD GAS ORDERABLES Performing Organization Address City/[facility] Co de Phone Number [facility] [address] [place] [address] * HEMAGRAM (07/24/2007 10:30 EST) WBC 6.67 4.0 - 10.4 K/cmm [facility] RBC 4.69 4.36 - 5.78 M/cmm [facility] Hemoglobin 15.4 13.8 - 17.3 gm/dl [facility] HCT 44.4 39.5 - 50.2 % [facility] MCV 95 81 - 95 fl [facility] MCH 32.9 27.6 - 33.0 pg [facility] MCHC 34.8 32.8 - 36.4 gm/dl [facility] PLT 285 141 - 320 K/cmm [facility] RDW-CV 11.9 11.8 - 14.1 % [facility] 07/24/2007 10:3 0 EST 07/24/2007 14:12 EST Nolberto Mac MD HEMATOLOGY & PF4 ORDERABLES Performing Organization Address City/State/[facility] Co de Phone Number [facility] [address] [place] [address] documented in this encounter Visit Diagnoses Not on filedocumented in this encounter Care Teams Android Ios Developer Relationship Specialty Start Date End Date Nolberto Mac MD [address] [place] [phone] PCP - General 02/24/09 04/17/11 documented as of this encounter
--- OUTSIDE RECORDS SUMMARY | 2024-03-02 02:27 | XMS_ITS | Encounter Summary ---
Author Organization [facility] Address [address] [place] [address] Care Team Providers Care Health Practice Manager Name Role Phone Unavailable Primary Care Provider Unavailabl e Encounter Details Date Type Department Care Team (Late st Contact Info) Description 07/27/2002 8:36 EST - 07/27/2002 11:59 EST Hospital Encounter [address] [address] Prem Hearn MD [address] [place] [address], [address] [place] [address] Discharge Disposition: Auto Discharge Social History Tobacco [...]
--- OUTSIDE RECORDS SUMMARY | 2024-03-02 02:27 | XMS_ITS | Encounter Summary ---
Author Organization [facility] Address [address] [place] [address] Care Team Providers Care Concrete Stone Fabricating Supervisor Name Role Phone Unavailable Primary Care Provider Unavailabl e Encounter Details Date Type Department Care Team (Late st Contact Info) Description 11/09/2008 10:22 EDT Hospital Encounter [address] [address] Chetna Noble MD [address] [place] [address], [address] [place] [address] Social History Tobacco Use Types [...] place to sleep or slept in a correction (including now)? No 09/12/2021 Interpersonal Safety Answer [...]
--- NOTE | 2024-03-02 11:25 | DI.RAD_ITS ---
Exam(s) XR HIP PELVIS ADULT BL XR FEMUR LT XR FEMUR RT EXAM: XR FEMUR RT CLINICAL HISTORY: TROCHANTERIC BURSITIS RIGHT HIP M70.62 EVAL BONES. TECHNIQUE: 2D digital imaging was performed. AP and lateral views. COMPARISON: CR XR FEMUR LT from 03/02/2024 CR XR HIP PELVIS ADULT BL from 03/02/2024 FINDINGS: BONES: No acute fracture is present. No bony destructive lesion is seen.Bones normally mineralized. JOINTS: Hip joint spaces are maintained. There is bilateral acetabular spurring. There is mild spur ring at the margin of the femoral heads bilaterally. On the right, there is a rounded bony density p rojecting anterior to the femoral neck region. It may represent exostosis versus adjacent loose body . The knee joint spaces are maintained. No significant degenerative changes at either knee. The SI joints and pubic symphysis are unremarkable. There are prominent degenerative changes at the lower lumbar spine. SOFT TISSUE: Normal. IMPRESSION: Brat-ef-cvrfddpu degenerative changes of both hips. Smoothly marginated bony density anterior to the right femoral neck may represent exostosis versus large loose body. The knees are unremarkable. DATA REPOSITORY: RADIATION DOSE DELIVERED:
== END ==
PROVIDERS: PCP Family Medicine; Visit Provider Family Medicine
DX: M70.61 Trochanteric bursitis, right hip (principal); M70.62 Trochanteric bursitis, left hip; R10.31 Right lower quadrant pain
CPT/HCPCS: 73521; 73552

== ENCOUNTER → 2024-04-13 08:10 | Outpatient (BNVA) | payer MEDICARE, SELFPAY | PROVIDERS: PCP Family Medicine; Referring Provider Family Medicine; Visit Provider Student in an Organized Health Care Education/Training Program | DX: M16.0 Bilateral primary osteoarthritis of hip (principal) | CPT/HCPCS: 99213 ==

== ENCOUNTER → 2024-07-13 08:06 | Outpatient (BNVA) | payer MEDICARE, SELFPAY | PROVIDERS: PCP Family Medicine; Referring Provider Family Medicine; Visit Provider Student in an Organized Health Care Education/Training Program | DX: M70.61 Trochanteric bursitis, right hip (principal); M70.62 Trochanteric bursitis, left hip | CPT/HCPCS: 20610; J1010 ==

== ENCOUNTER 2024-08-28 16:49 | Outpatient (REF) | payer MEDICARE, SELFPAY ==
[2024-08-28 14:57] LABS: Anion Gap 5.8 mmol/L (3-11); BUN 12 mg/dL (7-18); CO2 33.2 mmol/L (21.0-32.0); CREATININE 0.8 mg/dL (0.70-1.30); Calcium 9.3 mg/dL (8.5-10.1); Chloride 106 mmol/L (98-107); Estimated GFR 92.29 (mL/min/1.73m2); Glucose 87 mg/dL (74-106); Magnesium 1.9 mg/dL (1.8-2.4); Potassium 4.4 mmol/L (3.5-5.1); Sodium 145 mmol/L (136-145)
[2024-08-28 14:58] LABS: C-Reactive Protein < 0.50 mg/dL (<or=0.5)
--- OUTSIDE RECORDS SUMMARY | 2024-08-28 16:52 | XMS_ITS | Encounter Summary ---
Author Organization [facility] Address [address] [place] [address] Care Team Providers Care Assembly Stock Supervisor Name Role Phone Ya Yee MD Primary Care Provider [phone] Reason for Visit * Reason Comments Medicare Annual Wellness Visit Encounter Details Date Type Department Care Team (Late st Contact Info) Description 09/12/2021 9:[address] [facility] Adult Primary Care - [address] [phone] Ya Yee MD [address] [place] [phone] Routine health maintenance (Primary Dx); Benign [...] place to sleep or slept in a mcc (including now)? No 09/12/2021 Interpersonal Safety Answer Date Record ed How often does anyone, orly chambers family, hit, punch or physically hurt you? Never 08/30/2021 How often does anyone, orly chambers family, insult, scream, curse or threaten to hurt you? Never 08/30/2021 Sex and Gender Information Value Date Recorded Sex Assigned at Not on file Legal Sex Male 18:07 EST Gender Identity Male 10/27/2019 18:25 EDT Sexual [...] EST documented in this encounter Functional Status * Because of a physical, mental, or emotional condition, does this person have difficulty doing errands alone such as visiting a doctor's office or shopping? Answer Date of Assessment Author No 04/23/2018 8:16 EDT documented as of this encounter Mental Status * Because of a physical, mental, or emotional condition, does this person have serious difficulty concentrating, remembering, or making decisions? Answer Entry Date Author No 04/23/2018 8:16 EDT documented in this encounter Ordered Prescriptions Prescription Sig Dispense Quantity Refills Last Filled Start Date End Date citalopram (CELEXA) 10 mg tablet Take 1 Tablet by mouth daily. 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 male. 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 ??He is ??and lives with his . [...] visit he and his have moved to [facility]. He reports that he is enjoying the [...] history done with PMH, PSH, SH, FH, [facility]. The patient's problem list, past medical/surgical history, [...] as needed. Patient will follow up via [facility] regarding how the trial ofcitalopram is going in a few weeks Today's jgnh-gw-vruu visit time was 45 minutes with 30 minutes spent in counseling and/or coordination of care for the problems listed above. Ya Yee MD 09/12/2021 13:21 Portions of this document have been prepared with speech recognition software or keyboard senior data quality analyst techniques. Minor irregularities or keyboarding misprints [...] medical examination at a health care facility Benign essential hypertension Essential hypertension, benign Hyperlipidemia, unspecified hyperlipidemia type Adjustment disorder with depressed mood documented in this encounter Care Teams Assembly Stock Supervisor Relationship Specialty Start Date End Date Ya Yee MD [address] [place] [phone] PCP - General 02/23/16 10/02/21 documented as of this encounter
--- OUTSIDE RECORDS SUMMARY | 2024-08-28 16:52 | XMS_ITS | Encounter Summary ---
Author Organization [facility] Address [address] [place] [address] Care Team Providers Care Feather Shaper Name Role Phone Ya Yee MD Primary Care Provider [phone] Reason for Visit * Reason Onset Date Comments Labs Only 06/28/2021 Encounter Details Date Type Department Care Team (Late st Contact Info) Description 06/28/2021 Orders Only [facility] Adult Primary Care - [address] [phone] Ya Yee MD [address] [place] [address] Screening for prostate cancer (Primary [...] in a nursing home (including now)? No 06/21/2021 Interpersonal Safety Answer [...] documented as of this encounter Functional Status * Because of [...] 04/23/2018 8:16 EDT documented in this encounter Plan of Treatment [...] type documented in this encounter Care Teams Feather Shaper Relationship Specialty Start Date End Date Ya Yee MD [address] [place] [phone] PCP - General 02/23/16 10/02/21 documented as of this encounter
--- OUTSIDE RECORDS SUMMARY | 2024-08-28 16:52 | XMS_ITS | Referral Summary ---
Author Organization [facility] Address [address] [place] [address] Care Team Providers Care Chief Of Field Operations Name Role Phone Levon Ascencio MD Primary Care Provider [phone] Allergies No known active allergies Medications Cholecalciferol, Vitamin D3, 400 unit tablet Take [...] of large intestine without hemorr mayi 04/23/2018 Overview (04/23/2018): colonscopy 2013 (mild) Benign neoplasm of eyelid [...] Index 22.92 09/12/2021 0929 EST Functional Status * Because of a physical, mental, or emotional condition, does this person have difficulty doing errands alone such as visiting a doctor's office or shopping? Answer Date of Assessment Author No 04/23/2018 8:16 EDT Mental Status * Because of a physical, mental, or emotional condition, does this person have serious difficulty concentrating, remembering, or making decisions? Answer Entry Date Author No 04/23/2018 8:16 EDT Plan of Treatment Not on file Goals [...] Recently Relevant to Health Maintenance Results * (ABNORMAL) LIPID PROFILE (INCLUDES CHOLESTEROL, TRIGLYCERIDES, HDL, LDL) (09/07/2021) Cholesterol, External 240 <200 mg/dL [facility] Triglycerides, External 84 <150 mg/dL [facility] HDL, External 71 40 - 60 mg/dL [facility] LDL, External 153 <100 mg/dL [facility] Chol/HDL Ratio, External [facility] Fasting?, External unk [facility] Blood VENOUS BLOOD / Unknown 09/07/2021 us Historical Provider MD CHEMISTRY & BLOOD GAS ORD ERABLES Final Result [facility] * COLONOSCOPY PROCEDURE (04/30/2019) Anatomical [...] ??Total sedation time was 16 ?? minutes. [place] Bowel Prep Right Colon: 1 ? Transverse [...] Hearn MD Prem Hearn MD GI PROCEDURE ORDERABLES Fin al Result * HEPATITIS C AB W REFLEX TO HCV RNA BY PCR (10/21/2018 9:01 EST) Hep C Ab w Rfx PCR HCSCR2 Negative Negative 10/22/2018 9:56 EST [facility] Blood specimen (specimen) BLOOD SPECIMEN / Unknown 10/21/2018 9:01 EST 10/21/2018 10:24 EST Ya Yee MD CHEMISTRY & BLOOD GAS ORD ERABLES Final Result [facility] [address] [place] [address] from Last 3 Months or Most Recently Relevant to Health Maintenance Insurance [facility] MEDICARE [facility] Advance Directives For more information, please contact: [phone] Documents on File Type Date Recorded Patient Front Window Cashier Expl anation Advance Directive 10/24/2018 8:52 2011-07-19 5 ADVANCE DIRECTIVE Care Teams Chief Of Field Operations Relationship Specialty Start Date End Date Levon Ascencio MD [address] [facility] [address] [place] [address] PCP - General Emergency Medicine 10/03/21
--- OUTSIDE RECORDS SUMMARY | 2024-08-28 16:52 | XMS_ITS | Encounter Summary ---
Author Organization [facility] Address [address] [place] [address] Care Team Providers Care Developmental Electronics Assembler Name Role Phone Ya Yee MD Primary Care Provider [phone] Levon Ascencio MD Primary Care Provider [phone] Reason for Visit * Reason Onset Date Comments Appointment Related 11/23/2020 Encounter Details Date Type Department Care Team (Late st Contact Info) Description 11/23/2020 Telephone [facility] Neurology - [address] [phone] Yohan Cabezas MD [address] [place] [address], [address] [place] [address] Appointment Related Social History Tobacco [...] 04/23/2018 8:16 EDT documented in this encounter Miscellaneous Notes * Telephone Encounter - Pillo Rowland - 11/23/2020 1109 EDT Outgoing call to schedule next appt with Dr. Cabezas. Pt was last seen in April 2020 and the return instructions were: MD will be glad to work with pt as-needed or as deemed necessary by the referring provider/PCP. UPDATE: called pt about a month ago for [...] on filedocumented in this encounter Care Teams Developmental Electronics Assembler Relationship Specialty Start Date End Date Ya Yee MD [address] [place] [phone] PCP - General 02/23/16 10/02/21 Levon Ascencio MD [address] [facility] [address] [place] [address] PCP - General Emergency Medicine 10/03/21 documented as of this encounter
--- OUTSIDE RECORDS SUMMARY | 2024-08-28 16:52 | XMS_ITS | Encounter Summary ---
Author Organization [facility] Address [address] [place] [address] Care Team Providers Care Mailer Apprentice Name Role Phone Ya Yee MD Primary Care Provider [phone] Encounter Details Date Type Department Care Team [...] on filedocumented in this encounter Care Teams Mailer Apprentice Relationship Specialty Start Date End Date Ya Yee MD [address] [place] [phone] PCP - General 02/23/16 10/02/21 documented as of this encounter
--- OUTSIDE RECORDS SUMMARY | 2024-08-28 16:52 | XMS_ITS | Clinical Summary ---
Author Organization [facility] Address [address] [place] [address] Care Team Providers Care Wall Mirror Department Supervisor Name Role Phone Levon Ascencio MD Primary Care Provider [phone] Allergies No known active allergies Medications Cholecalciferol, [...] Prostate Cancer Brother 1 Heart Disease Father [place] High Blood Pressure Father High Cholesterol Father [...] you? Never 08/30/2021 How often does anyone, incldinora chambers family, insult, scream, curse or threaten [...] Health Maintenance Due Date Last Done Comments Cologuard (Colon Cancer Screening) 1993 FIT Test (Colon Cancer Screening) 1993 Sigmoidoscopy (Colon Cancer Screening) 1993 Shingles Immunization (2 of 3) 05/03/2011 03/08/2011 Depression Screening 09/12/2022 09/12/2021, 05/07/2019, 05/07/2019, Additional history exists Fall Risk Screening 09/12/2022 09/12/2021, 02/27/2021, 08/01/2020, Additional history exists Social Determinants Of Healt h (SDOH) 09/12/2022 09/12/2021, 09/12/2021, 05/07/2019 Tetanus (Adult) Immunization 08/27/2023 08/27/2013 Preventive Care Visit 09/12/2023 09/12/2021 , 06/30/2020, 05/07/2019, Additional history exists Advance Directive Review 10/25/2023 RSV Immunization ( o r 60+ Years) (1 - 1-dose 75+ series) 11/20/2023 COVID-19 Vaccine ( - 2023-2 5 season) 2024 05/22/2021, 11/03/2020, 10/14/2020 Lipid Profile Screening (Cholesterol) 09/14/2026 09/14/2021, 09/07/2021, [...] BLOOD / Unknown 09/07/2021 us Historical Provider CHEMISTRY & BLOOD GAS ORD ERABLES Final [...] ??Total sedation time was 16 ?? minutes. [place] Bowel Prep Right Colon: 1 ? Transverse [...] 04/30/2019 11:40:59 AM By Prem Hearn MD us Prem Hearn MD GI PROCEDURE ORDERABLES Fin al Result * HEPATITIS C AB W REFLEX TO HCV RNA BY PCR (10/21/2018 9:01 EST) Hep C Ab w Rfx PCR HCSCR2 Negative Negative 10/22/2018 9:56 EST [facility] Blood specimen (specimen) BLOOD SPECIMEN / Unknown 10/21/2018 9:01 EST 10/21/2018 10:24 EST Ya Yee MD CHEMISTRY & BLOOD GAS ORD ERABLES Final Result [facility] [address] [place] [address] from Last 3 Months or Most Recently Relevant to Health Maintenance Insurance [facility] MEDICARE [facility] Advance Directives For more information, please contact: [phone] Documents on File Type Date Recorded Patient Booth Cashier Expl anation Advance Directive 10/24/2018 8:52 2011-07-19 5 ADVANCE DIRECTIVE Care Teams Wall Mirror Department Supervisor Relationship Specialty Start Date End Date Levon Ascencio MD [address] [place] [address] PCP - General Emergency Medicine 10/03/21
--- OUTSIDE RECORDS SUMMARY | 2024-08-28 16:52 | XMS_ITS | Encounter Summary ---
Author Organization [facility] Address [address] [place] [address] Care Team Providers Care Vehicle Maintenance Supervisor Name Role Phone Levon Ascencio MD Primary Care Provider Encounter Details Date Type Department Care Team (Late st Contact Info) Description 02/27/2024 Lab Requisition [facility] Pathology & Laboratory Medicine - [address] [address] Outr Resulting Lab, Provider Social History Tobacco [...] PSA 0.4 <=6.5 ng/mL 02/28/2024 10:01 EDT [facility] Blood VENOUS BLOOD / Unknown 02/26/2024 14:55 EDT 02/27/2024 22:17 EDT Narrative [facility] - 02/28/2024 10:01 EDT NOTE: Serum PSA concentration should not be interpreted as absolute evidence for the presence or absence of malignant disease. Assayed on Xageekaur XPT using chemiluminescent technology.??Values obtained by using different assay methods cannot be used interchangeably. us Provider Outr Resulting Lab CHEMISTRY & BLOOD GA S ORDERABLES Final Result Performing Organization Address City/State/[facility] Co de Phone Number [facility] [address] [place], [place] [address] documented in this encounter Visit Diagnoses Not on filedocumented in this encounter Care Teams Vehicle Maintenance Supervisor Relationship Specialty Start Date End Date Levon Ascencio MD [address] [facility] [address] [place] [address] PCP - General Emergency Medicine 10/03/21 documented as of this encounter
--- OUTSIDE RECORDS SUMMARY | 2024-08-28 16:52 | XMS_ITS | Encounter Summary ---
Author Organization [facility] Address [address] [place] [address] Care Team Providers Care Edge Glue Machine Tender Name Role Phone Ya Yee MD Primary Care Provider [phone] Reason for Visit * Reason Comments Cerumen Impaction Encounter Details Date Type Department Care Team (Late st Contact Info) Description 02/27/2021 16:15 EDT Office Visit [facility] [address] [place], [place] [phone] Marge Shields, PA-C [address] [facility], [address] [place] [address] Bilateral impacted cerumen (Primary Dx) [...] 04/23/2018 8:16 EDT documented in this encounter Progress Notes * Marge Shields [...] cerumen documented in this encounter Care Teams Edge Glue Machine Tender Relationship Specialty Start Date End Date Ya Yee MD [address] [place] [phone] PCP - General 02/23/16 10/02/21 documented as of this encounter
--- OUTSIDE RECORDS SUMMARY | 2024-08-28 16:52 | XMS_ITS | Encounter Summary ---
Author Organization [facility] Address [address] [place] [address] Care Team Providers Care Learning Center Coordinator Name Role Phone Ya Yee MD Primary Care Provider [phone] Reason for Visit * Reason Onset Date Comments Appointment Related 06/29/2021 Encounter Details Date Type Department Care Team (Late st Contact Info) Description 06/29/2021 Telephone [facility] Adult Primary Care - [address] [phone] Ya Yee MD [address] [place] [address] Appointment Related Social History Tobacco [...] slept in a fdc (including now)? No 06/21/2021 Interpersonal Safety Answer [...] * Telephone Encounter - Deirdre Saravia - 06/29/2021 0989 EST Voicemail left for pt on 06/29/21 [...] filedocumented in this encounter Care Teams Learning Center Coordinator Relationship Specialty Start Date End Date Ya Yee MD [address] [place] [phone] PCP - General 02/23/16 10/02/21 documented as of this encounter
--- OUTSIDE RECORDS SUMMARY | 2024-08-28 16:52 | XMS_ITS | Encounter Summary ---
Author Organization [facility] Address [address] [place] [address] Care Team Providers Care Fast Food Manager Name Role Phone Ya Yee MD Primary Care Provider [phone] Levon Ascencio MD Primary Care Provider [phone] Encounter Details Date Type Department Care Team (Late st Contact Info) Description 09/07/2021 Lab Requisition [facility] Pathology & Laboratory Medicine - [facility] [address] [place] [address] Outr Resulting Lab, Provider Social History Tobacco [...] slept in a halfway (including now)? No 08/30/2021 Interpersonal Safety Answer [...] 0.0 - 6.5 ng/mL 09/07/2021 18:27 EST [facility] Blood VENOUS BLOOD / Unknown 09/07/2021 10:46 EST 09/07/2021 16:46 EST Narrative [facility] - 09/07/2021 18:27 EST NOTE: Serum PSA concentration should not be interpreted as absolute evidence for the presence or absence of malignant disease. Assayed on Run2Sportaur XPT using chemiluminescent technology.??Values obtained by using different assay methods cannot be used interchangeably. us Provider Outr Resulting Lab CHEMISTRY & BLOOD GA S ORDERABLES Final Result Performing Organization Address City/State/[facility] Co de Phone Number [facility] [address] [place] [address] documented in this encounter Visit Diagnoses Not on filedocumented in this encounter Care Teams Fast Food Manager Relationship Specialty Start Date End Date Ya Yee MD [address] [place] [phone] PCP - General 02/23/16 10/02/21 Levon Ascencio MD [address] [facility] [address] [place] [address] PCP - General Emergency Medicine 10/03/21 documented as of this encounter
--- OUTSIDE RECORDS SUMMARY | 2024-08-28 16:52 | XMS_ITS | Encounter Summary ---
Author Organization [facility] Address [address] [place] [address] Care Team Providers Care Ticket Machine Operator Name Role Phone Ya Yee MD Primary Care Provider +1 -[phone] Reason for Visit * Reason Onset Date Comments Letter for School/Work 12/07/2020 Encounter Details Date Type Department Care Team (Late st Contact Info) Description 12/07/2020 Telephone [facility] Adult Primary Care - [address] [phone] Ya Yee MD [address] [place] [phone] Letter for School/Work Social History Tobacco [...] Yee. Outgoing call to patient. 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 * Telephone [...] on filedocumented in this encounter Care Teams Ticket Machine Operator Relationship Specialty Start Date End Date Ya Yee MD [address] [place] [address] PCP - General 02/23/16 10/02/21 documented as of this encounter
--- OUTSIDE RECORDS SUMMARY | 2024-08-28 16:52 | XMS_ITS | Encounter Summary ---
Author Organization [facility] Address [address] [place] [address] Care Team Providers Care Fertilizer Processing Supervisor Name Role Phone Ya Yee MD Primary Care Provider +1 -[phone] Reason for Visit * Reason Onset Date Comments Results 09/14/2021 Encounter Details Date Type Department Care Team (Late st Contact Info) Description 09/14/2021 Orders Only [facility] Adult Primary Care - [address] [phone] Ya Yee MD [address] [place] [address] Social History Tobacco Use Types [...] place to sleep or slept in a mcfp (including now)? No 09/12/2021 Interpersonal Safety Answer [...] documented in this encounter Progress Notes * Deirdre Saravia - 09/14/2021 1540 EST Enter/Edit documented in this encounter Plan [...] ORD ERABLES Final Result EXTERNAL FACILITY * (ABNORMAL) COMPREHENSIVE METABOLIC PANEL [...] GAS ORD ERABLES Final Result EXTERNAL FACILITY documented in this encounter Visit Diagnoses Not on filedocumented in this encounter Orders Lab Orders Without Results Count Last Ordered D ate First Ordered Date LIPID PROFILE (INCLUDES CHOL ESTEROL, TRIGLYCERIDES, HDL, LDL) 1 09/14/2021 documented in this encounter Care Teams Fertilizer Processing Supervisor Relationship Specialty Start Date End Date Ya Yee MD [address] [place] [phone] PCP - General 02/23/16 10/02/21 documented as of this encounter
--- OUTSIDE RECORDS SUMMARY | 2024-08-28 16:52 | XMS_ITS | Encounter Summary ---
Author Organization [facility] Address [address] [place] [address] Care Team Providers Care Clerical Supervisor Name Role Phone Ya Yee MD Primary Care Provider +1 -[phone] Encounter Details Date Type Department Care Team (Late st Contact Info) Description 11/03/2020 13:30 EDT Immunization [facility] [address] [place] [address] Social History Tobacco Use Types Packs/Day Years [...] 11/03/2020 documented in this encounter Care Teams Clerical Supervisor Relationship Specialty Start Date End Date Ya Yee MD [address] [place] [phone] PCP - General 02/23/16 10/02/21 documented as of this encounter
--- OUTSIDE RECORDS SUMMARY | 2024-08-28 16:52 | XMS_ITS | Encounter Summary ---
Author Organization [facility] Address [address] [place] [address] Care Team Providers Care Software Engineer Name Role Phone Ya Yee MD Primary Care Provider +1 -[phone] Reason for Visit * Reason Comments Cerumen Impaction Encounter Details Date Type Department Care Team (Late st Contact Info) Description 11/25/2020 8:30 EDT Office Visit [facility] ENT- [address] [phone] Marge Shields, PA-C 111 [facility], [address] [place] [address] Impacted cerumen of left ear [...] cerumen documented in this encounter Care Teams Software Engineer Relationship Specialty Start Date End Date Ya Yee MD [address] [place] [phone] PCP - General 02/23/16 10/02/21 documented as of this encounter
--- OUTSIDE RECORDS SUMMARY | 2024-08-28 16:52 | XMS_ITS | Encounter Summary ---
Author Organization [facility] Address [address] [place] [address] Care Team Providers Care Volunteer Assistant Name Role Phone Ya Yee MD Primary Care Provider +1 -[phone] Reason for Visit * Reason Onset Date Comments Referral Request 07/12/2021 Encounter Details Date Type Department Care Team (Late st Contact Info) Description 07/12/2021 Telephone [facility] Adult Primary Care - [address] [phone] Ya Yee MD [address] [place] [address] Referral Request Social History Tobacco [...] place to sleep or slept in a half-way (including now)? No 06/21/2021 Interpersonal Safety Answer [...] Encounter - Ya Yee MD - 07/14/2021 0759 EST Orders signed, thanks * Telephone Encounter - Viktoria Foote - 07/12/2021 1302 EST Art has moved to [facility] - will continue seeing Dr Yee as PCP but is requesting a referral to [facility] ENT for continued ear flushes etc [facility] documented in this encounter Plan of Treatment Not on file documented as of this encounter Goals Goal Patient Goal Type Associated Problems Recent Progress Patient-Stated? Author LDL < 100 Result Component Hyperlipidemia 113( 9 9:29 EDT) Colleen Gracia documented as of this encounter Visit Diagnoses Diagnosis Bilateral impacted cerumen- Primary Impacted cerumen documented in this encounter Care Teams Volunteer Assistant Relationship Specialty Start Date End Date Ya Yee MD [address] [place] [phone] PCP - General 02/23/16 10/02/21 documented as of this encounter
--- OUTSIDE RECORDS SUMMARY | 2024-08-28 16:53 | XMS_ITS | Encounter Summary ---
Author Organization [facility] Address [address] [place] [address] Care Team Providers Care Client Manager Large Law Name Role Phone Ya Allan MD Primary Care Provider [phone] -[phone] Reason for Visit * Reason Onset Date Comments URI 12/04/2019 Encounter Details Date Type Department Care Team (Late st Contact Info) Description 12/04/2019 Telephone [facility] Adult Primary Care - [address] [phone] Ya Allan MD [address] [place] [phone] URI Social History Tobacco Use Types [...] on filedocumented in this encounter Care Teams Client Manager Large Law Relationship Specialty Start Date End Date Ya Allan MD [address] [place] [phone] PCP - General 02/23/16 10/02/21 documented as of this encounter
--- OUTSIDE RECORDS SUMMARY | 2024-08-28 16:53 | XMS_ITS | Encounter Summary ---
Author Organization [facility] Address [address] [place] [address] Care Team Providers Care Creative Art Director Name Role Phone Ya Yee MD Primary Care Provider +1 -[phone] Encounter Details Date Type Department Care Team [...] on filedocumented in this encounter Care Teams Creative Art Director Relationship Specialty Start Date End Date Ya Yee MD [address] [place] [phone] PCP - General 02/23/16 10/02/21 documented as of this encounter
--- OUTSIDE RECORDS SUMMARY | 2024-08-28 16:53 | XMS_ITS | Encounter Summary ---
Author Organization [facility] Address [address] [place] [address] Care Team Providers Care Assigner Name Role Phone Ya Yee MD Primary Care Provider +1 -[phone] Reason for Visit * Reason Comments Cough Encounter Details Date Type Department Care Team (Late st Contact Info) Description 12/04/2019 13:15 EDT Telemedicine [facility] Adult Primary Care - [address] [phone] Ya Yee MD [address] [place] [phone] Cough (Primary Dx) Social History Tobacco [...] do think that a visit to the [facility] is indicated. Patient would benefit from lung exam and possible COVID-19 testing. He has not been febrile buthas had a cough for several weeks. We will hold off on any antibiotic therapy until patient is evaluated in person. -[facility] visit already scheduled This visit [...] Primary documented in this encounter Care Teams Assigner Relationship Specialty Start Date End Date Ya Yee MD [address] [place] [phone] PCP - General 02/23/16 10/02/21 documented as of this encounter
--- OUTSIDE RECORDS SUMMARY | 2024-08-28 16:53 | XMS_ITS | Encounter Summary ---
Author Organization [facility] Address [address] [place] [address] Care Team Providers Care Lung Gun Operator Name Role Phone Ya Yee MD Primary Care Provider [phone] [phone] Reason for Visit * Reason Comments Annual Exam Encounter Details Date Type Department Care Team (Late st Contact Info) Description 05/07/2019 9:30 EDT Office Visit [facility] Adult Primary Care - [address] [phone] Ya Yee MD [address] [place] [phone] Routine health maintenance (Primary Dx); Hyperlipidemia, [...] Reading Time Taken Comments Blood Pressure 130/76 05/07/2019 0920 EDT Pulse 64 05/07/2019 0920 EDT Temperature - - Respiratory Rate 12 05/07/2019 0920 EDT Oxygen Saturation - - Inhaled Oxygen Concentration - - Weight 73.5 kg (162 lb) 05/07/2019 0920 EDT Height 177.8 cm (5' 10) 05/07/2019 0920 EDT Body Mass Index 23.24 05/07/2019919 EDT documented in this encounter Functional Status * [...] 04/23/2018 8:16 EDT documented in this encounter Patient Instructions * Patient Instructions* Ya Yee MD, - 05/07/2019 9:30 EDT Images from the original note were not included. [facility] Patient Instructions Neck: Exercises Your Care [...] Where can you learn more? Go to [email or web address] or log into your [employer] Online account at [email or web address]. Enter P975 in the search box to learn more about Neck: Exercises. Current as of: May 08, 2018 Content Version: 12.0 ?? [id number] [employer]. Care instructions adapted under license by [facility] If you have questions about a medical condition or this instruction, always ask your healthcare professional. [employer] disclaims any warranty or liability foryour use of this information. 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 He is and lives with his . 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 His only concern today is some soreness [...] Mother Alzheimers ??? Heart Disease Father [address] [place] ??? High Blood Pressure Father ??? High [...] F/u 1 year or sooner prn Today's cnmf-sd-[id number] visit time was 45 minutes with 30 [...] speech recognition software or keyboard senior data analyst techniques. Minor irregularities or keyboarding [...] Cervicalgia documented in this encounter Care Teams Lung Gun Operator Relationship Specialty Start Date End Date Ya Yee MD [address] [place] [phone] PCP - General 02/23/16 10/02/21 documented as of this encounter
--- OUTSIDE RECORDS SUMMARY | 2024-08-28 16:53 | XMS_ITS | Encounter Summary ---
Author Organization [facility] Address [address] [place] [address] Care Team Providers Care Foreign Collection Clerk Name Role Phone Ya Yee MD Primary Care Provider +1 -[phone] Reason for Visit * Reason Comments Follow-up cerumen Encounter Details Date Type Department Care Team (Late st Contact Info) Description 04/22/2020 9:30 EDT Office Visit [facility] ENT- [address] [phone] Marge Shields, PA-C [address] [facility], [address] [place] [address] Bilateral impacted cerumen (Primary Dx) [...] documented as of this encounter Care Teams Foreign Collection Clerk Relationship Specialty Start Date End Date Ya Yee MD [address] [place] [phone] PCP - General 02/23/16 10/02/21 documented as of this encounter
--- OUTSIDE RECORDS SUMMARY | 2024-08-28 16:53 | XMS_ITS | Encounter Summary ---
Author Organization [facility] Address [address] [place] [address] Care Team Providers Care Supervisor Parachute Manufacturing Name Role Phone Ya Yee MD Primary Care Provider +1 -[phone] Reason for Visit * Reason Comments Follow-up Cerumen Impaction Encounter Details Date Type Department Care Team (Late st Contact Info) Description 04/29/2019 11:35 EDT Office Visit [address] [phone] Chetna Noble MD [address] [place] [address], [address] [place] [address] Impacted cerumen of both ears [...] documented in this encounter Care Teams Supervisor [employer]ach[employer] Manufacturing Relationship Specialty Start Date End Date Ya Yee MD [address] [place] [phone] PCP - General 02/23/16 10/02/21 documented as of this encounter
--- OUTSIDE RECORDS SUMMARY | 2024-08-28 16:53 | XMS_ITS | Encounter Summary ---
Author Organization [facility] Address [address] [place] [address] Care Team Providers Care Photographic Aide Name Role Phone Ya Yee MD Primary Care Provider +1 -[phone] Reason for Visit * Reason Comments Cerumen Impaction Encounter Details Date Type Department Care Team (Late st Contact Info) Description 01/19/2020 10:00 EDT Office Visit [address] [phone] Chetna Noble MD [address] [place] [address], [address] [place] [address] Impacted cerumen of both ears [...] cerumen documented in this encounter Care Teams Photographic Aide Relationship Specialty Start Date End Date Ya Yee MD [address] [place] [phone] PCP - General 02/23/16 10/02/21 documented as of this encounter
--- OUTSIDE RECORDS SUMMARY | 2024-08-28 16:53 | XMS_ITS | Encounter Summary ---
Author Organization [facility] Address [address] [place] [address] Care Team Providers Care Milk Inspector Name Role Phone Ya Yee MD Primary Care Provider +1 -[phone] Reason for Visit * Reason Comments Cough Encounter Details Date Type Department Care Team (Latest Contact Info) Description 12/04/2019 14:00 EDT Office Visit [facility] Primary Care [address] [place] [address] Maryellen Cooper, ELIANA [address] [place] [address] Acute viral bronchiolitis (Primary Dx) [...] - documented in this encounter Functional Status * [...] Refills Last Filled Start Date End Date albuterol 90 mcg/actuation inhaler Inhale 2 Puffs as directed 3 times daily. 1 Inhaler 12/04/2019 0 guaifenesin-codein e (GUAIFENESIN AC) 100-10 mg/5 mL liquid Take 5 mL by mouth every 4 hours as needed for Cough. Daily Max: 30 mL 120 mL 12/04/2019 0 documented in this encounter Progress Notes * Maryellen Cooper, GRANT - 12/04/2019 1400 EDT Subjective: Patient ID: Luis Clayton is an 69 y.o. male. Chief Complaint Patient presents with ??? Cough HPI Luis Clayton is a 69 y.o. male with a PMHx of HTN and HLD who presents today to the [facility] for physical assessment for lingering cough. Patient [...] organisms documented in this encounter Care Teams Milk Inspector Relationship Specialty Start Date End Date Ya Yee MD [address] [place] [phone] PCP - General 02/23/16 10/02/21 documented as of this encounter
--- OUTSIDE RECORDS SUMMARY | 2024-08-28 16:53 | XMS_ITS | Encounter Summary ---
Author Organization [facility] Address [address] [place] [address] Care Team Providers Care Lead Loader Name Role Phone Ya Yee MD Primary Care Provider +1 -[phone] Reason for Visit * Reason Comments Follow-up 3 months cerumen Encounter Details Date Type Department Care Team (Late st Contact Info) Description 08/01/2020 10:30 EST Office Visit [facility] ENT- [facility] [address] [place], [place] [phone] Marge Shields, PA-C 111 [facility], [address] [place] [address] Bilateral impacted cerumen (Primary Dx) [...] documented in this encounter Care Teams Lead Loader Relationship Specialty Start Date End Date Ya Yee MD [address] [place] [phone] PCP - General 02/23/16 10/02/21 documented as of this encounter
--- OUTSIDE RECORDS SUMMARY | 2024-08-28 16:53 | XMS_ITS | Encounter Summary ---
Author Organization [facility] Address [address] [place] [address] Care Team Providers Care Semaphore Operator Name Role Phone Ya Yee MD Primary Care Provider +1 -[phone] Reason for Visit * Reason Comments Cerumen Impaction Encounter Details Date Type Department Care Team (Late st Contact Info) Description 01/14/2019 11:35 EDT Office Visit [address] 004451 Chetna Noble MD [address] [place] [address], [address] [place] [address] Impacted cerumen of both ears [...] cerumen documented in this encounter Care Teams Semaphore Operator Relationship Specialty Start Date End Date Ya Yee MD [address] [place] [phone] PCP - General 02/23/16 10/02/21 documented as of this encounter
--- OUTSIDE RECORDS SUMMARY | 2024-08-28 16:53 | XMS_ITS | Encounter Summary ---
Author Organization [facility] Address [address] [place] [address] Care Team Providers Care Cnc Machine Operator Name Role Phone Ya Yee MD Primary Care Provider +1 -[phone] Reason for Visit * Reason Comments Hand Problem Patient states that his arms and hand have tremors. When he's pouring something. Other He's also has head s haking his notices when he's looking at his Ipad that's on a stand. Encounter Details Date Type Department Care Team (Late st Contact Info) Description 02/26/2020 9:45 EDT Office Visit [facility] Adult Primary Care - [address] [address] Maryellen Cooper, ELIANA [address] [place] [address] Essential tremor (Primary Dx) Social [...] in this encounter Progress Notes * Maryellen Cooper [...] stress or fatigue - Not taking any SHORT ORDER COOK stimulants - No significant PMHx or FMHx [...] tremor documented in this encounter Care Teams Cnc Machine Operator Relationship Specialty Start Date End Date Ya Yee MD [address] [place] [phone] PCP - General 02/23/16 10/02/21 documented as of this encounter
--- OUTSIDE RECORDS SUMMARY | 2024-08-28 16:53 | XMS_ITS | Encounter Summary ---
Author Organization [facility] Address [address] [place] [address] Care Team Providers Care School Psychometrist Name Role Phone Ya Yee MD Primary Care Provider +1 -[phone] Reason for Visit * Reason Comments Medicare Annual Wellness Visit Encounter Details Date Type Department Care Team (Late st Contact Info) Description 06/30/2020 9:30 EST Office Visit [facility] Adult Primary Care - [address] [phone] Ya Yee MD [address] [place] [phone] Medicare annual wellness visit, subsequent (Primary [...] documented in this encounter Progress Notes * Anne Jang - 06/30/2020 0930 EST Due to computer system disruption, additional clinical information for this visit is Scanned Note. For patients, please refer to guidance in [employer] on how to locate information. Generally this [...] 07/11/2020 documented in this encounter Care Teams School Psychometrist Relationship Specialty Start Date End Date Ya Yee MD [address] [place] [phone] PCP - General 02/23/16 10/02/21 documented as of this encounter
--- OUTSIDE RECORDS SUMMARY | 2024-08-28 16:53 | XMS_ITS | Encounter Summary ---
Author Organization [facility] Address [address] [place] [address] Care Team Providers Care Clerical Grader Name Role Phone Ya Yee MD Primary Care Provider +1 -[phone] Reason for Visit * Reason Onset Date Comments Labs Only 03/01/2020 Encounter Details Date Type Department Care Team (Late st Contact Info) Description 03/01/2020 Telephone [facility] Adult Primary Care - [address] [phone] Maryellen Cooper, ELIANA [address] [place] [address] Labs Only Social History Tobacco [...] 03/01/2020 1057 EDT Luis was advised of Mareyllen's note from today at 10:01 * Telephone Encounter - Maryellen Cooper APRN - 03/01/2020 1001 EDT Lab orders have been placed. I'm not sure why someone didn't contact me while I was here to put them in rather than have him leave. I'm assuming it was not done here at [place]? Anyway, I'm sorry for the confusion and [...] on filedocumented in this encounter Care Teams Clerical Grader Relationship Specialty Start Date End Date Ya Yee MD [address] [place] [phone] PCP - General 02/23/16 10/02/21 documented as of this encounter
--- OUTSIDE RECORDS SUMMARY | 2024-08-28 16:53 | XMS_ITS | Encounter Summary ---
Author Organization [facility] Address [address] [place] [address] Care Team Providers Care Environmental Assistant Name Role Phone Ya Yee MD Primary Care Provider +1 [phone] Encounter Details Date Type Department Care Team (Late st Contact Info) Description 03/01/2020 Orders Only [facility] Adult Primary Care - [place] [address] [place] [address] Maryellen Cooper, TOLL OPERATOR [address] [place] [address] Essential tremor (Primary Dx) Social [...] 5.32 4.00 - 10.40 K/cmm 03/03/2020 9:09 [facility] RBC 4.84 4.36 - 5.78 M/cmm 03/03/2020 9:09 [facility] Hemoglobin 15.7 13.8 - 17.3 gm/dL 03/03/2020 9:09 [facility] HCT 45.3 39.5 - 50.2 % 03/03/2020 9:09 [facility] MCV 94 81 - 95 fl 03/03/2020 9:09 [facility] MCH 32.4 27.6 - 33.0 pg 03/03/2020 9:09 [facility] MCHC 34.7 32.8 - 36.4 gm/dL 03/03/2020 9:09 [facility] RDW-CV 12.6 <14.2 % 03/03/2020 9:09 [facility] RDW-SD 43.3 <46.0 fl 03/03/2020 9:09 [facility] PLT 232 141 - 377 K/cmm 03/03/2020 9:09 [facility] MPV 11.0 9.5 - 12.7 fl 03/03/2020 9:09 [facility] Blood VENOUS BLOOD / Unknown Venipuncture / Unknown 03/03/2020 8:25 EDT 03/03/2020 8:25 EDT us Maryellen Cooper TOLL OPERATOR HEMATOLOGY & PF4 ORDERABLES Fi nal Result Performing Organization Address [facility] Co de Phone Number [facility] [address] [place] [address] * FOLATE (03/03/2020 8:25 EDT) Folate 8.1 See Note ng/mL 03/03/2020 12:34 EDT [facility] Comment: Reference Ranges for Folate: Deficient: ?< 3.4 ng/mL Indeterminate: ??3.4 - 5.4 ng/mL Normal: ? > 5.4 ng/mL The results of this assay can be falsely elevated due to the consumption of Biotin. Blood VENOUS BLOOD / Unknown Venipuncture / Unknown 03/03/2020 8:25 EDT 03/03/2020 8:25 EDT us Maryellen Cooper NP CHEMISTRY & BLOOD GAS ORDERABL ES Final Result Performing Organization Address [facility] de Phone Number [facility] [address] [place] [address] * (ABNORMAL) VITAMIN B12 (03/03/2020 8:25 EDT) Vitamin B12 162(L) 211 - 911 pg/mL 03/03/2020 12:30 EDT [facility] Blood VENOUS BLOOD / Unknown Venipuncture / Unknown 03/03/2020 8:25 EDT 03/03/2020 8:25 EDT us Maryellen Cooper NP CHEMISTRY & BLOOD GAS ORDERABL ES Final Result Performing Organization Address [facility] Co de Phone Number [facility] [address] [place] [address] * COMPREHENSIVE METABOLIC PANEL (CMP) (03/03/2020 8:25 EDT) Sodium 139 136 - 145 mEq/L 03/03/2020 9:48 [facility] Potassium 4.4 3.5 - 5.0 mEq/L 03/03/2020 9:48 [facility] Chloride 102 96 - 110 mEq/L 03/03/2020 9:48 [facility] CO2 Total 30 22 - 32 mEq/L 03/03/2020 9:48 [facility] Glucose 90 70 - 100 mg/dL 03/03/2020 9:48 [facility] BUN 12 10 - 26 mg/dL 03/03/2020 9:48 [facility] Creatinine 0.69 0.66 - 1.25 mg/dL 03/03/2020 9:48 [facility] eGFR 96 >60 mL/min/1.7 3m2 03/03/2020 9:48 [facility] Comment:eGFR calculated george maciel CKD-EPI equation for non- Americans. Multiply eGFR by 1.16 for patients. Total Protein 6.9 6.3 - 8.2 g/dL 03/03/2020 9:48 [facility] Albumin 4.3 3.4 - 4.9 g/dL 03/03/2020 9:48 [facility] Alkaline Phosphatase 58 38 - 126 U/L 03/03/2020 9:48 [facility] AST 24 15 - 46 U/L 03/03/2020 9:48 [facility] ALT 19 <50 U/L 03/03/2020 9:48 [facility] Bilirubin, Total 0.8 <1.4 mg/dL 03/03/20 20 9:48 [facility] Calcium 9.2 8.5 - 10.5 mg/dL 03/03/2020 9:48 [facility] Calculated Calcium 9.0 8.5 - 10.5 mg/dL 03/03/2020 9:48 [facility] Blood VENOUS BLOOD / Unknown Venipuncture / Unknown 03/03/2020 8:25 EDT 03/03/2020 8:25 EDT us Maryellen Cooper TOLL OPERATOR CHEMISTRY & BLOOD GAS ORDERABL ES Final Result [facility] [address] [place] [address] documented in this encounter Visit Diagnoses Diagnosis Essential tremor- Primary Essential and other specified forms of tremor documented in this encounter Care Teams Environmental Assistant Relationship Specialty Start Date End Date Ya Yee MD [address] [place] [phone] PCP - General 02/23/16 10/02/21 documented as of this encounter
--- OUTSIDE RECORDS SUMMARY | 2024-08-28 16:53 | XMS_ITS | Encounter Summary ---
Author Organization [facility] Address [address] [place] [address] Care Team Providers Care Mechanical Design Drafter Name Role Phone Ya Yee MD Primary Care Provider +1 [phone] Reason for Visit * Reason Comments Abdominal Pain Encounter Details Date Type Department Care Team (Late st Contact Info) Description 06/07/2020 9:26 EDT - 06/07/2020 15:03 EDT Hospital Encounter [facility] Ur[facility] - [address] [phone] Alysha Israel MD [address] [place] [phone] Abdominal pain, unspecified abdominal location (Primary [...] 04/23/2018 8:16 EDT documented in this encounter Discharge Instructions * Discharge Instructions* [...] this encounter Medications at Time of Discharge Cholecalciferol, Vitamin D3, 400 unit tablet Take 1,000 Units by mouth daily. cyanocobalamin (VITAMIN B-12) 500 mcg tablet Take 500 mcg by mouth daily. documented as of this encounter Discharge Disposition Disposition Code Departure Means Destination Home or Self Custodial documented in this encounter ED Notes * Alysha Israel MD - 06/07/2020 1016 EDT Images from the original note were not included. DOS: 06/07/2020 Chief Complaint Patient presents with ??? Abdominal Pain The patient is a 69 y.o. 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 Heart Disease Father [address] [place] ??? High Blood Pressure Father ??? High [...] Negative Ketones, UA Negative Negative mg/dL Specific [place], Urine 1.020 1.001 - 1.035 Blood, UA Negative Negative pH, UA 6.5 <=8 Protein, UA Negative Negative mg/dL Urobilinogen, UA 0.2 0.2 - 1.0 EU/dL Nitrite, UA Negative Negative Leuk Esterase Negative Negative Tech ID [id number] LAB COMMENT (CLINITEK, UR) Test performed [...] benign. Scattered small bone islands also noted. Fruit And Vegetable Packer: No additional findings. 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 Upon departure from [facility], the patient's pain was 4 on a zero to ten scale. Any further pain treatment will be at the discretion of the provider following up with the patient based on their clinical assessment . Condition at departure from the [facility] : Stable MDM [...] benign. Scattered small bone islands also noted. Fruit And Vegetable Packer: No additional findings. Procedure Note aVn Ferraro MD - 06/07/2020 CT ABDOMEN PELVIS [...] benign. Scattered small bone islands also noted. Fruit And Vegetable Packer: No additional findings. IMPRESSION 1. No acute pathology abdomen pelvis. 2. Sigmoid diverticulosis. Alysha Israel MD IMG CT ORDERABLES Final Result * LIPASE (06/07/2020 10:49 EDT) Lipase 110 <251 U/L 06/07/2020 12:35 EDT [facility] Blood VENOUS BLOOD / Unknown Venipuncture / Unknown 06/07/2020 10:49 EDT 06/07/2020 12:08 EDT Alysha Israel MD CHEMISTRY & BLOOD GAS OR DERABLES Final Result [facility] [address] [place] [address] * COMPREHENSIVE METABOLIC PANEL (CMP) (06/07/2020 10:49 EDT) Sodium 144 136 - 145 mEq/L 06/07/2020 12:35 [facility] Potassium 4.4 3.5 - 5.0 mEq/L 06/07/2020 12:35 [facility] Chloride 104 96 - 110 mEq/L 06/07/2020 12:35 [facility] CO2 Total 32 22 - 32 mEq/L 06/07/2020 12:35 [facility] Glucose 90 70 - 100 mg/dL 06/07/2020 12:35 [facility] BUN 14 10 - 26 mg/dL 06/07/2020 12:35 [facility] Creatinine 0.77 0.66 - 1.25 mg/dL 06/07/2020 12:35 [facility] eGFR 91 >60 mL/min/1.7 3m2 06/07/2020 12:35 [facility] Comment:eGFR calculated george maciel CKD-EPI equation for non- Americans. Multiply eGFR by 1.16 for patients. Total Protein 6.7 6.3 - 8.2 g/dL 06/07/2020 12:35 [facility] Albumin 4.3 3.4 - 4.9 g/dL 06/07/2020 12:35 [facility] Alkaline Phosphatase 64 38 - 126 U/L 06/07/2020 12:35 [facility] AST 28 15 - 46 U/L 06/07/2020 12:35 [facility] ALT 24 <50 U/L 06/07/2020 12:35 [facility] Bilirubin, Total 0.7 <1.4 mg/dL 06/07/20 20 12:35 [facility] Calcium 9.0 8.5 - 10.5 mg/dL 06/07/2020 12:35 [facility] Calculated Calcium 8.8 8.5 - 10.5 mg/dL 06/07/2020 12:35 [facility] Blood VENOUS BLOOD / Unknown Venipuncture / Unknown 06/07/2020 10:49 EDT 06/07/2020 12:08 EDT Alysha Israel MD CHEMISTRY & BLOOD GAS OR DERABLES Final Result [facility] [address] [place] [phone] * (ABNORMAL) COMPLETE BLOOD COUNT AND DIFFERENTIAL (06/07/2020 10:49 EDT) WBC 6.41 4.00 - 10.40 K/cmm 06/07/2020 12:17 [facility] RBC 4.63 4.36 - 5.78 M/cmm 06/07/2020 12:17 [facility] Hemoglobin 15.1 13.8 - 17.3 gm/dL 06/07/2020 12:17 [facility] HCT 43.0 39.5 - 50.2 % 06/07/2020 12:17 [facility] MCV 93 81 - 95 fl 06/07/2020 12:17 [facility] MCH 32.6 27.6 - 33.0 pg 06/07/2020 12:17 [facility] MCHC 35.1 32.8 - 36.4 gm/dL 06/07/2020 12:17 [facility] RDW-CV 12.4 <14.2 % 06/07/2020 12:17 [facility] RDW-SD 42.5 <46.0 fl 06/07/2020 12:17 [facility] PLT 233 141 - 377 K/cmm 06/07/2020 12:17 [facility] MPV 11.0 9.5 - 12.7 fl 06/07/2020 12:17 [facility] % Neutrophils 73.2 % 06/07/2020 12:17 [facility] % Lymphocytes 14.8 % 06/07/2020 12:17 [facility] % Monocytes 9.2 % 06/07/2020 12:17 [facility] % Eosinophils 1.7 % 06/07/2020 12:17 [facility] % Basophils 0.6 % 06/07/2020 12:17 [facility] % Immature Grans 0.5 % 06/07/20 20 12:17 [facility] Absolute Neutrophils 4.69 2.20 - 8.85 K/cmm 06/07/2020 12:17 [facility] Absolute Lymphocytes 0.95(L) 1.09 - 3.30 K/cmm 06/07/2020 12:17 [facility] Absolute Monocytes 0.59 0.10 - 0.80 K/cmm 06/07/2020 12:17 [facility] Absolute Eosinophils 0.11 0.03 - 0.61 K/cmm 06/07/2020 12:17 [facility] ABS Basophils 0.04 0.01 - 0.11 K/cmm 06/07/2020 12:17 [facility] Absolute Immature Grans 0.03 0.00 - 0.06 K/cmm 06/07/2020 12:17 [facility] Type of Differential: Auto 06/07/2020 12:17 [facility] Blood VENOUS BLOOD / Unknown Venipuncture / Unknown 06/07/2020 10:49 EDT 06/07/2020 12:08 EDT us Alysha Israel MD PACKAGES & DNA PROBE ORD ERABLES Final Result [facility] [address] [place] [address] * XR CHEST 2 VIEWS (06/07/2020 10:43 [...] the above interpretation andagree with the findings. us Alysha Israel MD IMG DIAGNOSTIC IMAGING O RDERABLES Final Result * ECG REPORT - SCANNED (06/07/2020 10:27 EDT) 06/07/2020 10:2 7 EDT us Scan 2 Tree Trimming Line Technician PROCEDURE/MINOR SURGICAL OR DERABLES Final Result * POCT CSN BARCODE URINE DIPSTICK (06/07/2020 10:26 EDT) Hold Hold 06/07/2020 11:30 EDT [facility] Urine URINE SPECIMEN COLLECTION, CLEAN CATCH / Unknown Urine Collect / Unknown 06/07/2020 10:26 EDT 06/07/2020 10:26 EDT us Alysha Israel MD LAB INFO SERVICE AND SUP PORT & PHONE RESULT Final Result [facility] [address] [place] [address] * POCT URINE DIPSTICK, CLINITEK (06/07/2020 10:17 EDT) Color, UA Yellow Yellow 06/07/2020 10:23 EDT [facility] Clarity, UA Clear Clear 06/07/2020 10:23 [facility] Glucose, UA Negative Negative mg/dL 06/07/2020 10:23 [facility] Bilirubin, UA Negative Negative 06/07/2020 10:23 [facility] Ketones, UA Negative Negative mg/dL 06/07/2020 10:23 [facility] Specific [place], Urine 1.020 1.001 - 1.035 06/07/2020 10:23 [facility] Blood, UA Negative Negative 06/07/2020 10:23 [facility] pH, UA 6.5 <=8 06/07/2020 10:23 [facility] Protein, UA Negative Negative mg/dL 06/07/2020 10:23 [facility] Urobilinogen, UA 0.2 0.2 - 1.0 EU/dL 06/07/2020 10:23 [facility] Nitrite, UA Negative Negative 06/07/2020 10:23 [facility] Leuk Esterase Negative Negative 06/07/2020 10:23 [facility] subway repair supervisor ID [id number] 06/07/2020 10:23 [facility] HN LAB COMMENT (CLINITEK, UR) Test performed at Urgent Care 06/07/2020 10:23 [facility] Urine URINE SPECIMEN COLLECTION, CLEAN CATCH / Unknown 06/07/2020 10:17 EDT 06/07/2020 10:23 EDT us Alysha Israel MD POINT OF CARE TEST ORDER KOLE Final Result [facility] [address] [place] [address] * EKG 12-LEAD (06/07/2020 9:45 EDT) 06/07/2020 9:45 EDT Narrative [facility] EKG - 06/07/2020 10:22 EDT ? PC Site ? Test Date: ?2020-06-07 Pat Name: ? LUIS CLAYTON ?[facility] ? Room: ? 03 Gender: ? Male ? 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 : ?1950 ? Requested By: JHONATAN STEINBERG VIRY Order Number: [id number] ? Nany ESCAMILLA: ?? ALYSHA ISRAEL MD ? Measurements Intervals ?[place] ? Rate: ? 73 ? P: ?38 OR: ? 140 ?QRS: ?72 QRSD: ? 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 Provider Interpretation to follow. Compared to ECG 05/12/1999 09:34:00 Sinus arrhythmia no longer present I reviewed the tracing and have either agreed or edited the findings inthis report. Electronically Signed On 06-07-2020 10:22:00 EDT by PALOMA ESCAMILLA. Alysha Israel MD CARDIAC ECG ORDERABLES F inal Result [facility] EKG documented in this encounter Visit Diagnoses Diagnosis Abdominal pain, unspecified abdominal location- Primary documented in this encounter Administered Medications Inactive Administered Medications - up to 3 most recent administrations Medication Order MAR Action Action Date Dose Rate Site iohexoL (OMNIPAQUE 350) solution 100 mL 100 mL, intravenous, Once in imaging, 1 dose, Starting on Sat06/07/20 at 1356, Until Sat06/07/20 at 1408, Routine, Imaging Protocol Orders Given 06/07/2020 14:08 EDT 100 mL documented in this encounter Historical Medications * This list may reflect changes made after this encounter. cyanocobalamin (VITAMIN B-12) 500 mcg tablet Take 500 mcg by mouth daily. added in this encounter Active and Recently Administered Medications Times are shown in EDT. Scheduled Medication Order 06/05/2020 06/06/2020 06/07/2020 iohexoL (OMNIPAQUE 350) solution 100 mL (COMPLETED) 100 mL, intravenous, Once in imaging, 1 dose, Starting on Sat06/07/20 at 1356, Until Sat06/07/20 at 1408, Routine, Imaging Protocol Orders 1408 (Given - Provid er: Christie Brooks) documented in this encounter Orders Nursing Count Last Ordered Date First Orde red Date INSERT SALINE LOCK 1 06/07/2020 documented in this encounter Care Teams Mechanical Design Drafter Relationship Specialty Start Date End Date Ya Yee MD [address] [place] [phone] PCP - General 02/23/16 10/02/21 documented as of this encounter
--- OUTSIDE RECORDS SUMMARY | 2024-08-28 16:53 | XMS_ITS | Encounter Summary ---
Author Organization [facility] Address [address] [place] [address] Care Team Providers Care Sales Representative Girls' Apparel Name Role Phone Ya Yee MD Primary Care Provider [phone] [phone] Reason for Visit * Reason Onset Date Comments Appointment Related 04/28/2019 Labs Encounter Details Date Type Department Care Team (Late st Contact Info) Description 04/28/2019 Telephone [facility] Adult Primary Care - [address] [phone] Ya Yee MD [address] [place] [phone] Appointment Related (Labs) Social History Tobacco [...] EDT Outgoing call to patient. LM on VM about upcoming appt. Also to have fasting [...] filedocumented in this encounter Care Teams Sales Representative Girls' Apparel Relationship Specialty Start Date End Date Ya Yee MD [address] [place] [phone] PCP - General 02/23/16 10/02/21 documented as of this encounter
--- OUTSIDE RECORDS SUMMARY | 2024-08-28 16:53 | XMS_ITS | Encounter Summary ---
Author Organization Health system Address [address] [place] [address] Care Team Providers Care Kier Operator Name Role Phone Ya Yee MD Primary Care Provider [phone] -[phone] Encounter Details Date Type Department Care Team [...] on filedocumented in this encounter Care Teams Kier Operator Relationship Specialty Start Date End Date Ya Yee MD [address] [place] [phone] PCP - General 02/23/16 10/02/21 documented as of this encounter
--- OUTSIDE RECORDS SUMMARY | 2024-08-28 16:53 | XMS_ITS | Encounter Summary ---
Author Organization [facility] Address [address] [place] [address] Care Team Providers Care Room Designer Name Role Phone Ya Yee MD Primary Care Provider +[phone] -[phone] Reason for Visit * Reason Comments Follow-up Cerumen Impaction Encounter Details Date Type Department Care Team (Late st Contact Info) Description 11/03/2020 10:00 EDT Office Visit [facility] [address] [place] [address] Marge Shields, PA-C [address] [facility], [address] [place] [address] Bilateral impacted cerumen (Primary Dx) [...] cerumen documented in this encounter Care Teams Room Designer Relationship Specialty Start Date End Date Ya Yee MD [address] [place] [phone] PCP - General 02/23/16 10/02/21 documented as of this encounter
--- OUTSIDE RECORDS SUMMARY | 2024-08-28 16:53 | XMS_ITS | Encounter Summary ---
Author Organization [facility] Address [address] [place] [address] Care Team Providers Care Milk Bottling Machine Operator Name Role Phone Ya Yee MD Primary Care Provider +[phone] -[phone] Encounter Details Date Type Department Care Team [...] on filedocumented in this encounter Care Teams Milk Bottling Machine Operator Relationship Specialty Start Date End Date Ya Yee MD [address] [place] [phone] PCP - General 02/23/16 10/02/21 documented as of this encounter
--- OUTSIDE RECORDS SUMMARY | 2024-08-28 16:53 | XMS_ITS | Encounter Summary ---
Author Organization [facility] Address [address] [place] [address] Care Team Providers Care Hot Car Operator Name Role Phone Ya Yee MD Primary Care Provider [phone] -[phone] Reason for Visit * Reason Onset Date Comments Abdominal Pain 06/06/2020 Encounter Details Date Type Department Care Team (Late st Contact Info) Description 06/06/2020 Telephone [facility] Adult Primary Care - [address] [phone] Ya Yee MD [address] [place] [phone] Abdominal Pain Social History Tobacco Use [...] but not really diarrhea; some a little blanket binder than usual. Also c/o fatigue. Does have [...] on filedocumented in this encounter Care Teams Hot Car Operator Relationship Specialty Start Date End Date Ya Yee MD [address] [place] [phone] PCP - General 02/23/16 10/02/21 documented as of this encounter
--- OUTSIDE RECORDS SUMMARY | 2024-08-28 16:53 | XMS_ITS | Encounter Summary ---
Author Organization [facility] Address [address] [place] [address] Care Team Providers Care Want Ad Supervisor Name Role Phone Ya eYe MD Primary Care Provider +1 -[phone] Encounter Details Date Type Department Care Team [...] on filedocumented in this encounter Care Teams Want Ad Supervisor Relationship Specialty Start Date End Date Ya Yee MD [address] [place] [phone] PCP - General 02/23/16 10/02/21 documented as of this encounter
--- OUTSIDE RECORDS SUMMARY | 2024-08-28 16:53 | XMS_ITS | Encounter Summary ---
Author Organization [facility] Address [address] [place] [address] Care Team Providers Care Teller Vault Name Role Phone Ya Yee MD Primary Care Provider +1 [phone] Encounter Details Date Type Department Care Team [...] on filedocumented in this encounter Care Teams Teller Vault Relationship Specialty Start Date End Date Ya Yee MD [address] [place] [phone] PCP - General 02/23/16 10/02/21 documented as of this encounter
--- OUTSIDE RECORDS SUMMARY | 2024-08-28 16:53 | XMS_ITS | Encounter Summary ---
Author Organization [facility] Address [address] [place] [address] Care Team Providers Care Automatic Pinsetter Mechanic Name Role Phone Ya Yee MD Primary Care Provider +1 -[phone] Encounter Details Date Type Department Care Team (Late st Contact Info) Description 10/14/2020 13:30 EST Immunization [facility] - [facility] Mobile Testing [address] [place] [address] Social History Tobacco Use Types Packs/Day Years [...] 10/14/2020 documented in this encounter Care Teams Automatic Pinsetter Mechanic Relationship Specialty Start Date End Date Ya Yee MD [address] [place] [phone] PCP - General 02/23/16 10/02/21 documented as of this encounter
--- OUTSIDE RECORDS SUMMARY | 2024-08-28 16:53 | XMS_ITS | Encounter Summary ---
Author Organization [facility] Address [address] [place] [address] Care Team Providers Care Manager Order Name Role Phone Ya Yee MD Primary Care Provider +1 -[phone] Encounter Details Date Type Department Care Team (Late st Contact Info) Description 05/04/2019 Phlebotomy Only [facility] [address] [place] [address] Nutritionalist, Outpatient Hyperlipidemia, unspecified hyperlipidemia type; Benign essential [...] 139 136 - 145 mEq/L 05/04/2019 11:07 [facility] Potassium 4.3 3.5 - 5.0 mEq/L 05/04/2019 11:07 [facility] Chloride 100 96 - 110 mEq/L 05/04/2019 11:07 [facility] CO2 30 22 - 32 mEq/L 05/04/2019 11:07 [facility] BUN 11 10 - 26 mg/dl 05/04/2019 11:07 [facility] Creatinine 0.78 0.66 - 1.25 mg/dl 05/04/2019 11:07 [facility] GFR, Calculated 91 >60 ml/min/1.7 3m2 05/04/2019 11:07 [facility] Comment: eGFR calculated using CKD-EPI equation for non Americans. Multiply eGFR by 1.16 for Americans. Calcium 9.3 8.5 - 10.5 mg/dl 05/04/2019 11:07 [facility] Calculated Calcium 8.9 8.5 - 10.5 mg/dl 05/04/2019 11:07 [facility] Glucose, Serum 93 70 - 100 mg/dl 05/04/2019 11:07 [facility] Fasting? YES 05/04/2019 9:10 [facility] Blood specimen (specimen) BLOOD SPECIMEN / Unknown 05/04/2019 9:29 EDT 05/04/2019 10:07 EDT Ya Yee MD CHEMISTRY & BLOOD GAS ORD ERABLES Final Result [facility] [address] [place] [address] * LIPID PROFILE (INCLUDES CHOLESTEROL, TRIGLYCERIDES, HDL, LDL) (05/04/2019 9:29 EDT) Cholesterol 196 mg/dl 05/04/2019 11:07 T [facility] Comment: Desirable:<200 Borderline High:200-239 High:>ww=757 Triglycerides 142 mg/dl 05/04/2019 11:07 [facility] Comment: Normal:<150 Borderline High:150-199 High:200-499 Very High:>cn=483 HDL 55 mg/dl 05/04/2019 11:07 [facility] Comment: Low:<40 Normal:40-60 Desirable: >60 LDL, Calculated 113 mg/dl 9 11:07 [facility] Comment: Optimal:<100 Near Optimal:100-129 Borderline High:130-159 High:160-189 Very High:>rp=990 Chol/HDL Ratio 3.6 05/04/2019 11:07 [facility] Fasting? YES 05/04/2019 9:10 [facility] Non HDL Cholesterol 141 mg/dl 05/04/2019 11:07 [facility] Comment: Desirable:<130 Borderline:130-159 High: 160-189 Very High: >kf=603 Blood specimen (specimen) BLOOD SPECIMEN / Unknown 05/04/2019 9:29 EDT 05/04/2019 10:07 EDT Ya Yee MD CHEMISTRY & BLOOD GAS ORD ERABLES Final Result [facility] [address] [place] [address] documented in this encounter Visit Diagnoses Diagnosis Hyperlipidemia, unspecified hyperlipidemia type Benign essential hypertension Essential hypertension, benign documented in this encounter Care Teams Manager Order Relationship Specialty Start Date End Date Ya Yee MD [address] [place], [place] [phone] PCP - General 02/23/16 10/02/21 documented as of this encounter
--- OUTSIDE RECORDS SUMMARY | 2024-08-28 16:53 | XMS_ITS | Encounter Summary ---
Author Organization [facility] Address [address] [place] [address] Care Team Providers Care Pinking Machine Operator Name Role Phone Ya Yee MD Primary Care Provider +1 -[phone] Reason for Visit * Reason Comments Cerumen Impaction Encounter Details Date Type Department Care Team (Late st Contact Info) Description 10/28/2019 9:30 EDT Office Visit [address] [phone] Chetna Noble MD [address] [place] [address], [address] [place] [address] Impacted cerumen of both ears [...] cerumen documented in this encounter Care Teams Pinking Machine Operator Relationship Specialty Start Date End Date Ya Yee MD [address] [place] [phone] PCP - General 02/23/16 10/02/21 documented as of this encounter
--- OUTSIDE RECORDS SUMMARY | 2024-08-28 16:53 | XMS_ITS | Encounter Summary ---
Author Organization [facility] Address [address] [place] [address] Care Team Providers Care Head And Neck Surgeon Name Role Phone Ya Yee MD Primary Care Provider +1 -[phone] Reason for Visit * Reason Onset Date Comments Paperwork request 01/21/2020 Encounter Details Date Type Department Care Team (Late st Contact Info) Description 01/21/2020 Telephone [facility] Adult Primary Care - [address] [phone] Ya Yee MD [address] [place] [phone] Paperwork request Social History Tobacco Use [...] on filedocumented in this encounter Care Teams Head And Neck Surgeon Relationship Specialty Start Date End Date Ya Yee MD [address] [place] [phone] PCP - General 02/23/16 10/02/21 documented as of this encounter
--- OUTSIDE RECORDS SUMMARY | 2024-08-28 16:53 | XMS_ITS | Encounter Summary ---
Author Organization [facility] Address [address] [place] [address] Care Team Providers Care Forestry Technician Name Role Phone Ya Yee MD Primary Care Provider +1 -[phone] Reason for Visit * Reason Comments Follow-up 3mo f/u Cerumen Encounter Details Date Type Department Care Team (Late st Contact Info) Description 07/29/2019 11:35 EST Office Visit [facility] [address] [place] [address] Chetna Noble MD [address] [facility], [address] [place] [address] Bilateral impacted cerumen (Primary Dx) [...] cerumen documented in this encounter Care Teams Forestry Technician Relationship Specialty Start Date End Date Ya Yee MD [address] [place] [phone] PCP - General 02/23/16 10/02/21 documented as of this encounter
--- OUTSIDE RECORDS SUMMARY | 2024-08-28 16:53 | XMS_ITS | Encounter Summary ---
Author Organization [facility] Address [address] [place] [address] Care Team Providers Care Performance Test Architect Name Role Phone Ya Yee MD Primary Care Provider +1 -[phone] Reason for Visit * Reason Comments Shoulder Pain Right shoulder pain, after fall. Having ROM problems. Fall fell 3 wks ago. Encounter Details Date Type Department Care Team (Late st Contact Info) Description 10/05/2019 11:30 EST Office Visit [facility] Adult Primary Care - [address] [phone] Lauren Grimes PA-C [address] [place] [phone] Impingement syndrome of right shoulder (Primary [...] the original note were not included. Call [facility] for PT appt if no improvement with home treatment in 1-2 weeks [phone] Rotator Cuff Problems: Care Instructions Your Care [...] your doctor if you can take an wzmn-gzu-vgfoxse medicine. ?? Put ice or a cold [...] Stop any exercise that increases pain. ? Vtrsi-fs-lvhckr exercises. If it is not too painful, [...] the progress note. Pt Ed: - Call [facility] for PT appt if no improvement with home treatment in 1-2 weeks [phone] Rotator Cuff Problems: Care Instructions Your Care [...] your doctor if you can take an pymc-tdl-dtbuqig medicine. ?? Put ice or a cold [...] Stop any exercise that increases pain. ? Dtuvn-pp-qjfsrn exercises. If it is not too painful, [...] prepared with speech recognition software or keyboard gps field data collector techniques. Minor irregularities or keyboarding misprints may [...] encounter documented in this encounter Care Teams Performance Test Architect Relationship Specialty Start Date End Date Ya Yee MD [address] [place] [phone] PCP - General 02/23/16 10/02/21 documented as of this encounter
--- OUTSIDE RECORDS SUMMARY | 2024-08-28 16:53 | XMS_ITS | Encounter Summary ---
Author Organization [facility] Address [address] [place] [address] Care Team Providers Care Grout Machine Operator Name Role Phone Ya Yee MD Primary Care Provider +1 -[phone] Encounter Details Date Type Department Care Team [...] on filedocumented in this encounter Care Teams Grout Machine Operator Relationship Specialty Start Date End Date Ya Yee MD [address] [place] [phone] PCP - General 02/23/16 10/02/21 documented as of this encounter
--- OUTSIDE RECORDS SUMMARY | 2024-08-28 16:53 | XMS_ITS | Encounter Summary ---
Author Organization [facility] Address [address] [place] [address] Care Team Providers Care Jet Man Name Role Phone Ya Yee MD Primary Care Provider +1 -[phone] Encounter Details Date Type Department Care Team [...] on filedocumented in this encounter Care Teams Jet Man Relationship Specialty Start Date End Date Ya Yee MD [address] [place] [phone] PCP - General 02/23/16 10/02/21 documented as of this encounter
--- OUTSIDE RECORDS SUMMARY | 2024-08-28 16:53 | XMS_ITS | Encounter Summary ---
Author Organization [facility] Address [address] [place] [address] Care Team Providers Care Experimental Outboard Motors Mechanic Name Role Phone Ya Yee MD Primary Care Provider +1 -[phone] Reason for Visit * Reason Onset Date Comments Results 03/04/2020 Vitamin B12 defi ciency Encounter Details Date Type Department Care Team (Late st Contact Info) Description 03/04/2020 Telephone [facility] Adult Primary Care - [address] [phone] Maryellen Cooper NP [address] [place] [phone] Results (Vitamin B12 deficiency) Social [...] Encounter - Maryellen Cooper APRN - 03/04/2020 1436 EDT Called and left message for patient [...] on filedocumented in this encounter Care Teams Experimental Outboard Motors Mechanic Relationship Specialty Start Date End Date Ya Yee MD [address] [place] [phone] PCP - General 02/23/16 10/02/21 documented as of this encounter
--- OUTSIDE RECORDS SUMMARY | 2024-08-28 16:53 | XMS_ITS | Encounter Summary ---
Author Organization [facility] Address [address] [place] [address] Care Team Providers Care Pea Viner Mechanic Name Role Phone Ya Yee MD Primary Care Provider +1 -[phone] Encounter Details Date Type Department Care Team [...] on filedocumented in this encounter Care Teams Pea Viner Mechanic Relationship Specialty Start Date End Date Ya Yee MD [address] [place] [phone] PCP - General 02/23/16 10/02/21 documented as of this encounter
--- OUTSIDE RECORDS SUMMARY | 2024-08-28 16:53 | XMS_ITS | Encounter Summary ---
Author Organization [facility] Address [address] [place] [address] Care Team Providers Care Billet Cutter Name Role Phone Ya Yee MD Primary Care Provider +1 -[phone] Reason for Visit * Reason Onset Date Comments Paperwork request 07/18/2020 FMLA Encounter Details Date Type Department Care Team (Late st Contact Info) Description 07/18/[address] [facility] Adult Primary Care - [address] [phone] Ya Yee MD [address] [place] [address] Paperwork request ([place]) Social History [...] EST FMLA paperwork completed & returned to [employer] via fax [phone] Original given to urgent scanning team * Telephone Encounter - Viktoria Foote - 07/22/2020 1201 EST Dannielle - do you know if this has been completed & returned via fax? * Telephone Encounter - Deirdre Winn - 07/20/2020 1545 EST Received [facility] paperwork back as it needs some clarification on some of the questions Given to pcp to complete Once completed fax back to [phone] * Telephone Encounter - Deirdre Winn - 07/18/2020 1620 EST LM for pt that his paperwork is completed and he can come pick it up * Telephone Encounter - Ya Yee MD - 07/18/2020 1322 EST Paperwork completed. thanks * Telephone Encounter - Savannah Claros - 07/18/2020 1229 EST Patient dropped off FMLA paperwork. Given to Dr Yee for review. When completed, please contact patient to package pick up documented in this encounter Plan of Treatment Not on file documented as of this encounter Goals Goal Patient Goal Type Associated Problems Recent Progress Patient-Stated? Author LDL < 100 Result Component Hyperlipidemia 113( 9 9:29 EDT) Colleen Gracia documented as of this encounter Visit Diagnoses Not on filedocumented in this encounter Care Teams Billet Cutter Relationship Specialty Start Date End Date Ya Yee MD [address] [place] [phone] PCP - General 02/23/16 10/02/21 documented as of this encounter
--- OUTSIDE RECORDS SUMMARY | 2024-08-28 16:53 | XMS_ITS | Encounter Summary ---
Author Organization [facility] Address [address] [place] [address] Care Team Providers Care Dermatology Physician Assistant Name Role Phone Ya Yee MD Primary Care Provider +1 -[phone] Encounter Details Date Type Department Care Team (Late st Contact Info) Description 05/04/2019 9:07 EDT - 05/04/2019 23:59 EDT Hospital Encounter [facility] [address] [place] [phone] Ya Yee MD [address] [place] [phone] Discharge Disposition: Home or Self Care [...] 8:16 EDT documented in this encounter Discharge Diagnoses Diagnosis E78.5 Hyperlipidemia, unspecified-E78.5[ICD-10-CM] I10 Essential (primary) hypertension-I10[ICD-10-CM] documented in this encounter Medications at Time of Discharge Cholecalciferol, Vitamin D3, 400 unit tablet Take 1,000 Units by mouth daily. documented as of this encounter Discharge Disposition Disposition Code Departure Means Destination Home or Self Residential documented in this encounter Plan of Treatment Not on file documented as of this encounter Goals Goal Patient Goal Type Associated Problems Recent Progress Patient-Stated? Author LDL < 100 Result Component Hyperlipidemia 113( 9 9:29 EDT) Colleen Gracia documented as of this encounter Visit Diagnoses Not on filedocumented in this encounter Care Teams Dermatology Physician Assistant Relationship Specialty Start Date End Date Ya Yee MD [address] [place] [phone] PCP - General 02/23/16 10/02/21 documented as of this encounter
--- OUTSIDE RECORDS SUMMARY | 2024-08-28 16:53 | XMS_ITS | Encounter Summary ---
Author Organization [facility] Address [address] [place] [address] Care Team Providers Care Construction Safety Consultant Name Role Phone Ya Yee MD Primary Care Provider +1 -[phone] Encounter Details Date Type Department Care Team (Late st Contact Info) Description 03/03/2020 8:20 EDT Phlebotomy Only [facility] - [facility] [address] [place], [place] [phone] Funeral Counselor, [facility] Phlebotomy Essential tremor (Primary Dx) [...] 4.00 - 10.40 K/cmm 03/03/2020 9:09 [facility] RBC 4.84 4.36 - 5.78 M/cmm 03/03/2020 9:09 [facility] Hemoglobin 15.7 13.8 - 17.3 gm/dL 03/03/2020 9:09 [facility] HCT 45.3 39.5 - 50.2 % 03/03/2020 9:09 [facility] MCV 94 81 - 95 fl 03/03/2020 9:09 [facility] MCH 32.4 27.6 - 33.0 pg 03/03/2020 9:09 [facility] MCHC 34.7 32.8 - 36.4 gm/dL 03/03/2020 9:09 [facility] RDW-CV 12.6 <14.2 % 03/03/2020 9:09 [facility] RDW-SD 43.3 <46.0 fl 03/03/2020 9:09 [facility] PLT 232 141 - 377 K/cmm 03/03/2020 9:09 [facility] MPV 11.0 9.5 - 12.7 fl 03/03/2020 9:09 EDT [facility] Blood VENOUS BLOOD / Unknown Venipuncture / Unknown 03/03/2020 8:25 EDT 03/03/2020 8:25 EDT us Maryellen Cooper PLUMBING DESIGNER HEMATOLOGY & PF4 ORDERABLES Fi nal Result Performing Organization Address [facility] Co de Phone Number [facility] [address] [place] [address] * FOLATE (03/03/2020 8:25 EDT) Folate 8.1 See Note ng/mL 03/03/2020 12:34 EDT [facility] Comment: Reference Ranges for Folate: Deficient: ?< 3.4 ng/mL Indeterminate: ??3.4 - 5.4 ng/mL Normal: ? > 5.4 ng/mL The results of this assay can be falsely elevated due to the consumption of Biotin. Blood VENOUS BLOOD / Unknown Venipuncture / Unknown 03/03/2020 8:25 EDT 03/03/2020 8:25 EDT Result Antonia Cooper PLUMBING DESIGNER CHEMISTRY & BLOOD GAS ORDERABL ES Final Result Performing Organization Address [facility] Co de Phone Number [facility] [address] [place] [address] * (ABNORMAL) VITAMIN B12 (03/03/2020 8:25 EDT) Vitamin B12 162(L) 211 - 911 pg/mL 03/03/2020 12:30 EDT [facility] Blood VENOUS BLOOD / Unknown Venipuncture / Unknown 03/03/2020 8:25 EDT 03/03/2020 8:25 EDT us Maryellen Cooper PLUMBING DESIGNER CHEMISTRY & BLOOD GAS ORDERABL ES Final Result Performing Organization Address [facility]/ZIP Co de Phone Number [facility] [address] [place] [id number] * COMPREHENSIVE METABOLIC PANEL (CMP) (03/03/2020 8:25 EDT) Sodium 139 136 - 145 mEq/L 03/03/2020 9:48 [facility] Potassium 4.4 3.5 - 5.0 mEq/L 03/03/2020 9:48 [facility] Chloride 102 96 - 110 mEq/L 03/03/2020 9:48 [facility] CO2 Total 30 22 - 32 mEq/L 03/03/2020 9:48 [facility] Glucose 90 70 - 100 mg/dL 03/03/2020 9:48 [facility] BUN 12 10 - 26 mg/dL 03/03/2020 9:48 [facility] Creatinine 0.69 0.66 - 1.25 mg/dL 03/03/2020 9:48 [facility] eGFR 96 >60 mL/min/1.7 3m2 03/03/2020 9:48 [facility] Comment:eGFR calculated george maciel CKD-EPI equation for non- Americans. Multiply eGFR by 1.16 for patients. Total Protein 6.9 6.3 - 8.2 g/dL 03/03/2020 9:48 [facility] Albumin 4.3 3.4 - 4.9 g/dL 03/03/2020 9:48 [facility] Alkaline Phosphatase 58 38 - 126 U/L 03/03/2020 9:48 [facility] AST 24 15 - 46 U/L 03/03/2020 9:48 [facility] ALT 19 <50 U/L 03/03/2020 9:48 [facility] Bilirubin, Total 0.8 <1.4 mg/dL 03/03/20 20 9:48 [facility] Calcium 9.2 8.5 - 10.5 mg/dL 03/03/2020 9:48 [facility] Calculated Calcium 9.0 8.5 - 10.5 mg/dL 03/03/2020 9:48 [facility] Blood VENOUS BLOOD / Unknown Venipuncture / Unknown 03/03/2020 8:25 EDT 03/03/2020 8:25 EDT us Maryellen Cooper PLUMBING DESIGNER CHEMISTRY & BLOOD GAS ORDERABL ES Final Result [facility] [address] [place] [address] documented in this encounter Visit Diagnoses Diagnosis Essential tremor- Primary Essential and other specified forms of tremor documented in this encounter Care Teams Construction Safety Consultant Relationship Specialty Start Date End Date Ya Yee MD [address] [place] [phone] PCP - General 02/23/16 10/02/21 documented as of this encounter
--- OUTSIDE RECORDS SUMMARY | 2024-08-28 16:53 | XMS_ITS | Encounter Summary ---
Author Organization [facility] Address [address] [place] [address] Care Team Providers Care Pier Hand Name Role Phone Ya Yee MD Primary Care Provider +1 -[phone] Reason for Visit * Reason Onset Date Comments Post-ED Follow Up 06/10/2020 Encounter Details Date Type Department Care Team (Late st Contact Info) Description 06/10/2020 Telephone [facility] Adult Primary Care - [place] [address] [place] [address] Lizbeth Vera RN Post-ED Follow Up Social [...] Miscellaneous Notes * Telephone Encounter - Lizbeth Vera RN - 06/10/2020 1111 EDT We see [...] on filedocumented in this encounter Care Teams Pier Hand Relationship Specialty Start Date End Date Ya Yee MD [address] [place] [phone] PCP - General 02/23/16 10/02/21 documented as of this encounter
--- OUTSIDE RECORDS SUMMARY | 2024-08-28 16:53 | XMS_ITS | Encounter Summary ---
Author Organization [facility] Address [address] [place] [address] Care Team Providers Care Furniture Cleaner Name Role Phone Ya Yee MD Primary Care Provider +1 -[phone] Reason for Visit * Reason Onset Date Comments Pre-visit Orders 04/28/2019 Encounter Details Date Type Department Care Team (Late st Contact Info) Description 04/28/2019 Orders Only [facility] Adult Primary Care - [address] [phone] Ya Yee MD [address] [place] [address] Hyperlipidemia, unspecified hyperlipidemia type (Primary [...] documented in this encounter Progress Notes * Ondina Mae [...] 9:29 EDT) Cholesterol 196 mg/dl 05/04/2019 11:07 [facility] Comment: Desirable:<200 Borderline High:200-239 High:>xq=693 Triglycerides 142 mg/dl 05/04/2019 11:07 [facility] Comment: Normal:<150 Borderline High:150-199 High:200-499 Very High:>dr=028 HDL 55 mg/dl 05/04/2019 11:07 [facility] Comment: Low:<40 Normal:40-60 Desirable: >60 LDL, Calculated 113 mg/dl 9 11:07 [facility] Comment: Optimal:<100 Near Optimal:100-129 Borderline High:130-159 High:160-189 Very High:>la=034 Chol/HDL Ratio 3.6 05/04/2019 11:07 [facility] Fasting? YES 05/04/2019 9:10 [facility] Non HDL Cholesterol 141 mg/dl 05/04/2019 11:07 [facility] Comment: Desirable:<130 Borderline:130-159 High: 160-189 Very High: >su=451 Blood specimen (specimen) BLOOD SPECIMEN / Unknown 05/04/2019 9:29 EDT 05/04/2019 10:07 EDT Ya Yee MD CHEMISTRY & BLOOD GAS ORD ERABLES Final Result [facility] [address] [place] [address] * BASIC METABOLIC PANEL (BMP) (05/04/2019 9:29 EDT) Sodium 139 136 - 145 mEq/L 05/04/2019 11:07 [facility] Potassium 4.3 3.5 - 5.0 mEq/L 05/04/2019 11:07 [facility] Chloride 100 96 - 110 mEq/L 05/04/2019 11:07 [facility] CO2 30 22 - 32 mEq/L 05/04/2019 11:07 [facility] BUN 11 10 - 26 mg/dl 05/04/2019 11:07 [facility] Creatinine 0.78 0.66 - 1.25 mg/dl 05/04/2019 11:07 [facility] GFR, Calculated 91 >60 ml/min/1.7 3m2 05/04/2019 11:07 [facility] Comment: eGFR calculated using CKD-EPI equation for non Americans. Multiply eGFR by 1.16 for Americans. Calcium 9.3 8.5 - 10.5 mg/dl 05/04/2019 11:07 [facility] Calculated Calcium 8.9 8.5 - 10.5 mg/dl 05/04/2019 11:07 [facility] Glucose, Serum 93 70 - 100 mg/dl 05/04/2019 11:07 [facility] Fasting? YES 05/04/2019 9:10 [facility] Blood specimen (specimen) BLOOD SPECIMEN / Unknown 05/04/2019 9:29 EDT 05/04/2019 10:07 EDT us Ya Yee MD CHEMISTRY & BLOOD GAS ORD ERABLES Final Result [facility] [address] [place] [address] documented in this encounter Visit Diagnoses Diagnosis Hyperlipidemia, unspecified hyperlipidemia type- Primary Benign essential hypertension Essential hypertension, benign documented in this encounter Care Teams Furniture Cleaner Relationship Specialty Start Date End Date Ya Yee MD [address] [place] [address] PCP - General 02/23/16 10/02/21 documented as of this encounter
--- OUTSIDE RECORDS SUMMARY | 2024-08-28 16:53 | XMS_ITS | Encounter Summary ---
Author Organization [facility] Address [address] [place] [address] Care Team Providers Care Faa Certified Powerplant Mechanic Name Role Phone Ya Yee MD Primary Care Provider +1 -[phone] Reason for Visit * Reason Comments Follow-up Telemedicine Video Visit * Consult (Routine/Next Available) - Order Cancelled Specialty Diagnoses / Procedures Referred By Francisco mcdonald Referred To Contact Neurology Diagnoses Tremor Ya Yee MD Phone: tel: fax: Yohan Cabezas MD Phone: tel: fax: Referral ID Status Reason Start Date Expiration Date Visits Requested Visits Authorized [id number] Order Cancelled Specialty Services Required 03/24/2020 1 1 Encounter Details Date Type Department Care Team (Late st Contact Info) Description 04/20/2020 16:00 EDT Telemedicine [facility] Neurology - [address] [address] Yohan Cabezas MD [address] [place] [address] Level 2 [place] [address] Action tremor (Primary Dx) Social History [...] documented in this encounter Progress Notes * Yohan Cabezas MD - 04/20/2020 1600 EDT [facility] ([facility]) [facility] Luis Clayton male 1950 69 y.o. as of 10/10/[address] [place] [address] Home Phone Work Phone PCP: Ya Yee MD (General) [address] [place] [phone] Type of visit: New Patient Referring Clinician: Ya Yee MD [address] [place] [phone] Primary Care: Ya Yee [address] [place] [phone] Reason for referral / Chief complaint: Tremor [...] Alzheimers Diabetes Paternal Uncle Heart Disease Father [place] Heart Disease Paternal Uncle High Blood Pressure Father High Cholesterol Father Prostate Cancer Brother Social History: Living environment: Lives with his . They have 1 daughter. 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 -- Yohan Cabezas MD Sales/Marketing of Neurological Sciences, [facility] Movement Disorder Neurologist, [facility] ([facility] Address: [address] [address] Above note was partially typed and partially dictated (using Wirescan software). The note may containsome spelling errors, which I have tried to correct using spell check. This is a telehealth audio and video visit that was performed with the originating site at patient's home and the distant site at my office in [facility] at [facility] during the Coronavirus (COVID-19) Public Health [...] tremor documented in this encounter Care Teams Faa Certified Powerplant Mechanic Relationship Specialty Start Date End Date Ya Yee MD [address] [place] [phone] PCP - General 02/23/16 10/02/21 documented as of this encounter
--- OUTSIDE RECORDS SUMMARY | 2024-08-28 16:53 | XMS_ITS | Encounter Summary ---
Author Organization [facility] Address [address] [place] [address] Care Team Providers Care Biological Photographer Name Role Phone Ya Yee MD Primary Care Provider [phone] [phone] Reason for Visit * Reason Onset Date Comments URI 11/03/2019 Encounter Details Date Type Department Care Team (Late st Contact Info) Description 11/03/2019 Telephone [facility] Adult Primary Care - [address] [phone] Ya Yee MD [address] [place] [phone] URI Social History Tobacco Use Types [...] Refills Last Filled Start Date End Date benzonatate (TESSALON) 100 mg capsule Take 1 [...] comes and goes, but not horrible. In [place] the end of September. Traveled via airplane, changed in [facility] out of [place]. Has family down there, so only visiting family not tourist attractions. No know exposure to anyone with COVID-19. Tried tylenol and ibuprofen. Has humidifier running all time. Hasn't tried any OTC cough medicine. Plan: Routed to PCP to review and advise. Patient does have dx of HTN and hasn't tried any OTC cough meds yet. He would use [email or web address] [facility] [employer] for any medications. 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 Author LDL < 100 Result Component Hyperlipidemia 113( 9 9:29 EDT) Colleen Gracia documented as of this encounter Visit Diagnoses Not on filedocumented in this encounter Care Teams Biological Photographer Relationship Specialty Start Date End Date Ya Yee MD [address] [place] [phone] PCP - General 02/23/16 10/02/21 documented as of this encounter
--- OUTSIDE RECORDS SUMMARY | 2024-08-28 16:53 | XMS_ITS | Encounter Summary ---
Author Organization [facility] Address [address] [place] [address] Care Team Providers Care Part Time Name Role Phone Ya Yee MD Primary Care Provider +1 [phone] Encounter Details Date Type Department Care Team [...] on filedocumented in this encounter Care Teams Part Time Relationship Specialty Start Date End Date Ya Yee MD [address] [place] [phone] PCP - General 02/23/16 10/02/21 documented as of this encounter
--- OUTSIDE RECORDS SUMMARY | 2024-08-28 16:53 | XMS_ITS | Encounter Summary ---
Author Organization [facility] Address [address] [place] [address] Care Team Providers Care Internet Sales Representative Name Role Phone Ya Yee MD Primary Care Provider [phone] -[phone] Encounter Details Date Type Department Care Team (Late st Contact Info) Description 04/30/2019 9:55 EDT - 04/30/2019 12:40 EDT Hospital Encounter [facility] Endoscopy Outpatient [address] [place], [place] [address] Prem Hearn MD [address] [facility], [facility] [address] [place] [address] Discharge Disposition: Home or Self [...] documented in this encounter Discharge Diagnoses Diagnosis Z12.11 Encounter for screening for malignant neoplasm of colon-Z12.11[ICD-10-CM] Z86.010 Personal history of colonic polyps-Z86.010[ICD-10-CM] K57.30 Diverticulosis of large intestine without perforation or abscess without bleeding-K57.30[ICD-10-CM] I10 Essential (primary) hypertension-I10[ICD-10-CM] documented in this encounter Medications at Time of Discharge Cholecalciferol, Vitamin D3, 400 unit tablet Take 1,000 Units by mouth daily. polyethylene glycol (GOLYTELY;NULYTE LY) 236-22.74-6.74 -5.86 gram suspension Instructions mailed once procedure scheduled. Questions: [facility] Gastroenterology: [phone] or GI Doctor's Office. 4000 mL 11/03/2018 9 documented as of this encounter Discharge Disposition Disposition Code Departure Means Destination Home or Self Care documented in this encounter H&P Notes * Prem Hearn MD - 04/30/2019 1112 EDT Endoscopy Sedation for Procedure History & Physical Date: 04/30/2019 Time: 11:12 Location: [address] Planned Procedure: Colonoscopy Chief Complaint/Indications for [...] Mother Alzheimers ??? Heart Disease Father 61 [place] ??? High Blood Pressure Father ??? High [...] ??Total sedation time was 16 ?? minutes. [place] Bowel Prep Right Colon: 1 ? Transverse [...] MD GI PROCEDURE ORDERABLES Fin al Result documented in this encounter Visit Diagnoses Not [...] 04/30/2019 documented in this encounter Care Teams Internet Sales Representative Relationship Specialty Start Date End Date Ya Yee MD [address] [place] [phone] PCP - General 02/23/16 10/02/21 documented as of this encounter
--- OUTSIDE RECORDS SUMMARY | 2024-08-28 16:54 | XMS_ITS | Encounter Summary ---
Author Organization [facility] Address [address] [place] [address] Care Team Providers Care Calculating Machine Mechanic Name Role Phone Ya Yee MD Primary Care Provider +1 -[phone] Reason for Visit * Reason Comments Follow-up Encounter Details Date Type Department Care Team (Late st Contact Info) Description 09/26/2016 11:00 EST Office Visit [address] [phone] Chetna Noble MD [address] [place] [address], Level 4 [place] [address] Bilateral impacted cerumen (Primary Dx) [...] shopping? Answer Date of Assessment Author No 08/27/2016 10:05 EST documented as of this encounter Mental Status * Because of a physical, mental, or emotional condition, does this person have serious difficulty concentrating, remembering, or making decisions? Answer Entry Date Author No 08/27/2016 10:05 EST documented in this encounter Discharge Disposition Disposition [...] cerumen documented in this encounter Care Teams Calculating Machine Mechanic Relationship Specialty Start Date End Date Ya Yee MD [address] [place] [phone] PCP - General 02/23/16 10/02/21 documented as of this encounter
--- OUTSIDE RECORDS SUMMARY | 2024-08-28 16:54 | XMS_ITS | Encounter Summary ---
Author Organization [facility] Address [address] [place] [address] Care Team Providers Care Biology Instructor Name Role Phone Ya Yee MD Primary Care Provider +1 -[phone] Reason for Visit * Reason Onset Date Comments Appointment Related 04/10/2018 Encounter Details Date Type Department Care Team (Late st Contact Info) Description 04/10/[address] [facility] Adult Primary Care - [address] [phone] Ya Yee MD [address] [place] [phone] Appointment Related Social History Tobacco Use [...] shopping? Answer Date of Assessment Author No 03/10/2018 16:13 EDT documented as of this encounter Mental Status * Because of a physical, mental, or emotional condition, does this person have serious difficulty concentrating, remembering, or making decisions? Answer Entry Date Author No 03/10/2018 16:13 EDT documented in this encounter Miscellaneous Notes [...] on filedocumented in this encounter Care Teams Biology Instructor Relationship Specialty Start Date End Date Ya Yee MD [address] [place] [phone] PCP - General 02/23/16 10/02/21 documented as of this encounter
--- OUTSIDE RECORDS SUMMARY | 2024-08-28 16:54 | XMS_ITS | Encounter Summary ---
Author Organization [facility] Address [address] [place] [address] Care Team Providers Care Outpatient Physical Therapist Assistant Name Role Phone Ya Pena MD Primary Care Provider +1 -[phone] Reason for Visit * Reason Onset Date Comments Appointment Related 01/16/2017 Encounter Details Date Type Department Care Team (Late st Contact Info) Description 01/16/2017 Telephone [facility] Rehabilitation Therapy - Medical Office Building [address] [place] [phone] Therapy, Physical Appointment Related Social History Tobacco [...] 08/27/2016 10:05 EST documented in this encounter Miscellaneous Notes * Telephone Encounter - Anne Ascencio - 01/16/2017 1120 EDT [facility] - MEDICAL OFFICE BUILDING [address] [facility] [address] Telephone Intake Information for Scheduling NEW Patients [...] We generally recommend that patients have a truck driver rubbish collector on the day of the appointment, because the treatment can occasionally make someone feel worse for a little while. PATIENT ADVISED Symptoms generally decrease quite quickly so an alternative to having a truck driver rubbish collector might be to wait in our waiting room for a while before leaving. Primary Insurance: BC/[facility] Secondary Insurance: MEDICARE B IMPORTANT: Unless Medicare, Medicaid or [facility], TSS must verify insurance for coverage of [employer] [id number]. Is this service covered? YES If Medicare: [...] on filedocumented in this encounter Care Teams Outpatient Physical Therapist Assistant Relationship Specialty Start Date End Date Ya Pena MD [address] [place] [phone] PCP - General 02/23/16 10/02/21 documented as of this encounter
--- OUTSIDE RECORDS SUMMARY | 2024-08-28 16:54 | XMS_ITS | Encounter Summary ---
Author Organization [facility] Address [address] [place] [address] Care Team Providers Care Care Management Associate Name Role Phone Ya Yee MD Primary Care Provider [phone] [phone] Reason for Visit * Reason Onset Date Comments Influenza 09/24/2017 Encounter Details Date Type Department Care Team (Late st Contact Info) Description 09/24/[address] [facility] Adult Primary Care - [address] [phone] Ya Yee MD [address] [place] [phone] Influenza Social History Tobacco Use Types [...] shopping? Answer Date of Assessment Author No 08/07/2017 9:12 EST documented as of this encounter Mental Status * Because of a physical, mental, or emotional condition, does this person have serious difficulty concentrating, remembering, or making decisions? Answer Entry Date Author No 08/07/2017 9:12 EST documented in this encounter Miscellaneous Notes * Telephone Encounter - Anne Miller - 09/25/2017 1126 EST Fax number is [phone] Attn: Salima Letter printed and faxed * [...] filedocumented in this encounter Care Teams Care Management Associate Relationship Specialty Start Date End Date Ya Yee MD [address] [place] [phone] PCP - General 02/23/16 10/02/21 documented as of this encounter
--- OUTSIDE RECORDS SUMMARY | 2024-08-28 16:54 | XMS_ITS | Encounter Summary ---
Author Organization [facility] Address [address] [place] [address] Care Team Providers Care Cardiology Clinical Consultant Name Role Phone Ya Yee MD Primary Care Provider +1 -[phone] Reason for Visit * Reason Comments Follow-up Encounter Details Date Type Department Care Team (Late st Contact Info) Description 07/03/2018 10:10 EST Office Visit [address] [address] Chetna Noble MD [address] [facility], Level [address] [place] [address] Impacted cerumen of both ears [...] cerumen documented in this encounter Care Teams Cardiology Clinical Consultant Relationship Specialty Start Date End Date Ya Yee MD [address] [place] [phone] PCP - General 02/23/16 10/02/21 documented as of this encounter
--- OUTSIDE RECORDS SUMMARY | 2024-08-28 16:54 | XMS_ITS | Encounter Summary ---
Author Organization [facility] Address [address] [place] [address] Care Team Providers Care Price Analyst Name Role Phone Ya Yee MD Primary Care Provider +1 -[phone] Reason for Visit * Reason Comments Cerumen Impaction Encounter Details Date Type Department Care Team (Late st Contact Info) Description 03/26/2017 8:15 EDT Office Visit [address] [phone] Chetna Noble MD [address] [place] [address], Level [address] [place] [address] Bilateral impacted cerumen (Primary Dx) [...] shopping? Answer Date of Assessment Author No 03/26/2017 8:13 EDT documented as of this encounter Mental Status * Because of a physical, mental, or emotional condition, does this person have serious difficulty concentrating, remembering, or making decisions? Answer Entry Date Author No 03/26/2017 8:13 EDT documented in this encounter Progress Notes [...] cerumen documented in this encounter Care Teams Price Analyst Relationship Specialty Start Date End Date Ya Yee MD [address] [place] [phone] PCP - General 02/23/16 10/02/21 documented as of this encounter
--- OUTSIDE RECORDS SUMMARY | 2024-08-28 16:54 | XMS_ITS | Encounter Summary ---
Author Organization [facility] Address [address] [place] [address] Care Team Providers Care Necktie Operator Pockets And Pieces Name Role Phone Ya Yee MD Primary Care Provider +1 -[phone] Encounter Details Date Type Department Care Team (Latest Contact Info) Description 03/11/2018 11:33 EDT - 03/11/2018 23:59 EDT Hospital Encounter [address] [address] Gilmer Angel MD [address] [place] [address] Discharge Disposition: Home or Self Care Social [...] 03/10/2018 16:13 EDT documented in this encounter Discharge Diagnoses Diagnosis R10.9 Unspecified [...] on filedocumented in this encounter Care Teams Necktie Operator Pockets And Pieces Relationship Specialty Start Date End Date Ya Yee MD [address] [place] [phone] PCP - General 02/23/16 10/02/21 documented as of this encounter
--- OUTSIDE RECORDS SUMMARY | 2024-08-28 16:54 | XMS_ITS | Encounter Summary ---
Author Organization [facility] Address [address] [place] [address] Care Team Providers Care Technical Proposal Writer Name Role Phone Ya Yee MD Primary Care Provider +1 -[phone] Reason for Referral * Surgery (Routine/Next Available) - Closed Specialty Diagnoses / Procedures Referred By Francisco mcdonald Referred To Contact Diagnoses Mucous cyst of digit of right hand Procedures GA EXCIS TENDON SHEATH LESION, HAND/FINGER Jose Manuel Saha MD Phone: tel: fax: Referral ID Status Reason Start Date Expiration Date V isits Requested Visits Authorized [id number] Closed Specialty Services Required 03/07/2018 1 1 Question Answer Laterality: Right Location of Procedure: [facility] Anesthesia: Local Estimated Length of Procedure: 20 min Reason for Request: right small finger mucous cyst CPT Code: 20547 Post-op Appointment (Days): 8 First post-op appointment [...] cyst of digit of right hand Belle Pop PA [address] [place] [address] Phone: tel: fax: Jose Manuel Saha MD Phone: tel: fax: Referral ID Status Reason Start Date Expiration Date Visits Re quested Visits Authorized [id number] Closed 1 1 Encounter Details Date Type Department Care Team (Late st Contact Info) Description 03/07/2018 8:30 EDT Office Visit [facility] - [address] [place] [address] Jose Manuel Saha MD [address] [place] [address] Mucous cyst of digit of [...] shopping? Answer Date of Assessment Author No 12/19/2017 9:29 EDT documented as of this encounter Mental Status * Because of a physical, mental, or emotional condition, does this person have serious difficulty concentrating, remembering, or making decisions? Answer Entry Date Author No 12/19/2017 9:29 EDT documented in this encounter Progress Notes * Jose Manuel Saha MD - 03/07/2018 0830 EDT The patient [...] the surgery under local anesthetic over the [facility] so that we havecautery available. SURGICAL RISKS [...] Primary documented in this encounter Care Teams Technical Proposal Writer Relationship Specialty Start Date End Date Ya Yee MD [address] [place] [phone] PCP - General 02/23/16 10/02/21 documented as of this encounter
--- OUTSIDE RECORDS SUMMARY | 2024-08-28 16:54 | XMS_ITS | Encounter Summary ---
Author Organization [facility] Address [address] [place] [address] Care Team Providers Care Print Machine Operator Name Role Phone Ya Yee MD Primary Care Provider +1 -[phone] Reason for Visit * Reason Comments Cough productive for yello w mucus for the past two weeks, now has dull ache mid chest Nasal Congestion Encounter Details Date Type Department Care Team (Late st Contact Info) Description 05/21/2017 13:45 EDT Office Visit [facility] Adult Primary Care - [address] [phone] Milena Mccabe MD [address] [place] [phone] Cough (Primary Dx) Social History Tobacco [...] documented in this encounter Progress Notes * Milena Mccabe [...] Primary documented in this encounter Care Teams Print Machine Operator Relationship Specialty Start Date End Date Ya Yee MD [address] [place] [phone] PCP - General 02/23/16 10/02/21 documented as of this encounter
--- OUTSIDE RECORDS SUMMARY | 2024-08-28 16:54 | XMS_ITS | Encounter Summary ---
Author Organization [facility] Address [address] [place] [address] Care Team Providers Care Business Office Specialist Name Role Phone Ya Yee MD Primary Care Provider +1 -[phone] Reason for Visit * Reason Comments Follow-up Cerumen Impaction Encounter Details Date Type Department Care Team (Late st Contact Info) Description 06/27/2017 10:10 EST Office Visit [facility] ENT- [address] [id number] Chetna Noble MD [address] [place] [address], Level [address] [place] [address] Bilateral impacted cerumen (Primary Dx); [...] (07/04/2017 10:33 EST) 07/04/2017 10:3 3 EST us Scan 2 Product Safety Officer PROCEDURE/MINOR SURGICAL OR DERABLES Final Result documented in this encounter Visit Diagnoses Diagnosis Bilateral impacted cerumen- Primary Impacted cerumen Sensorineural hearing loss (SNHL) of both ears documented in this encounter Care Teams Business Office Specialist Relationship Specialty Start Date End Date Ya Yee MD [address] [place] [phone] PCP - General 02/23/16 10/02/21 documented as of this encounter
--- OUTSIDE RECORDS SUMMARY | 2024-08-28 16:54 | XMS_ITS | Encounter Summary ---
Author Organization [facility] Address [address] [place] [address] Care Team Providers Care Webfocus Developer Name Role Phone Ya Yee MD Primary Care Provider +1 -[phone] Encounter Details Date Type Department Care Team (Late st Contact Info) Description 09/03/2016 9:09 EST - 09/03/2016 23:59 EST Hospital Encounter [facility] [address] [place] [address] Ya Yee MD [address] [place] [phone] Discharge Disposition: Auto Discharge Social History [...] 10:05 EST documented in this encounter Discharge Diagnoses Diagnosis R53.83 Other [...] on filedocumented in this encounter Care Teams Webfocus Developer Relationship Specialty Start Date End Date Ya Yee MD [address] [place] [phone] PCP - General 02/23/16 10/02/21 documented as of this encounter
--- OUTSIDE RECORDS SUMMARY | 2024-08-28 16:54 | XMS_ITS | Encounter Summary ---
Author Organization [facility] Address [address] [place] [address] Care Team Providers Care Pet Care Technician Name Role Phone Ya Yee MD Primary Care Provider +1 -[phone] Encounter Details Date Type Department Care Team (Late st Contact Info) Description 04/19/2018 9:07 EDT - 04/19/2018 23:59 EDT Hospital Encounter [facility] [address] [place] [address] Ya Yee MD [address] [place] [phone] Discharge Disposition: Home or Self Care [...] 0.0 - 0.3 mg/dl 04/19/2018 11:03 EDT [facility] Unconjugated Bilirubin 1.1 0.0 - 1.1 mg/dl 04/19/2018 11:03 EDT [facility] BLOOD SPECIMEN / Unknown 04/19/2018 9:20 EDT 04/19/2018 10:34 EDT Ya Yee MD CHEMISTRY & BLOOD GAS ORD ERABLES Final Result [facility] [address] [place] [address] documented in this encounter Visit Diagnoses Not on filedocumented in this encounter Care Teams Pet Care Technician Relationship Specialty Start Date End Date Ya Yee MD [address] [place] [phone] PCP - General 02/23/16 10/02/21 documented as of this encounter
--- OUTSIDE RECORDS SUMMARY | 2024-08-28 16:54 | XMS_ITS | Encounter Summary ---
Author Organization [facility] Address [address] [place] [address] Care Team Providers Care Bill Poster Installer Name Role Phone Ya Yee MD Primary Care Provider +1 -[phone] Reason for Visit * Reason Onset Date Comments Letter for School/Work 01/22/2017 Encounter Details Date Type Department Care Team (Late st Contact Info) Description 01/22/2017 Telephone [facility] Adult Primary Care - [address] [address] Brina Tapia, RN Letter for School/Work Social [...] Letter faxed * Telephone Encounter - Brina Tapia RN - 01/22/2017 1107 EDT Message to [facility]: Please fax patient's letter for return to work to: [phone]. Thanks. documented in this encounter Plan of Treatment Not on file documented as of this encounter Goals Goal Patient Goal Type Associated Problems Recent Progress Patient-Stated? Author LDL < 100 Result Component Hyperlipidemia 113( 9 9:29 EDT) Colleen Gracia documented as of this encounter Visit Diagnoses Not on filedocumented in this encounter Care Teams Bill Poster Installer Relationship Specialty Start Date End Date Ya Yee MD [address] [place] [phone] PCP - General 02/23/16 10/02/21 documented as of this encounter
--- OUTSIDE RECORDS SUMMARY | 2024-08-28 16:54 | XMS_ITS | Encounter Summary ---
Author Organization [facility] Address [address] [place] [address] Care Team Providers Care Prototype Special Build Name Role Phone Ya Yee MD Primary Care Provider +1 [phone] Encounter Details Date Type Department Care Team (Late st Contact Info) Description 02/07/2017 Documentation Visit [facility] Rehabilitation Therapy - Medical Office Building [address] [place] [address] Peter Meraz, PT [address] [facility], [facility], [address] [place] [address] Social History Tobacco Use Types [...] 08/27/2016 10:05 EST documented in this encounter Progress Notes * Peter Meraz, PT - 02/07/2017 0952 EDT REHABILITATION THERAPIES [facility] REHABILITATION THERAPY - MEDICAL OFFICE BUILDING [address] [place] [address] Physical Therapy Discontinue/Discharge Note Date: 02/07/2017 Reason [...] on filedocumented in this encounter Care Teams Prototype Special Build Relationship Specialty Start Date End Date Ya Yee MD [address] [place] [phone] PCP - General 02/23/16 10/02/21 documented as of this encounter
--- OUTSIDE RECORDS SUMMARY | 2024-08-28 16:54 | XMS_ITS | Encounter Summary ---
Author Organization Health system Address [address] [place] [address] Care Team Providers Care Skiver Heel Tap Name Role Phone Ya Yee MD Primary Care Provider +1 [phone] Encounter Details Date Type Department Care Team (Late st Contact Info) Description 04/19/2018 Phlebotomy Only [facility] [address] [place] [address] Cement Mixer, Outpatient Hyperlipidemia, unspecified hyperlipidemia type; Benign essential [...] 03/10/2018 16:13 EDT documented in this encounter Plan of Treatment Not on file documented as of this encounter Goals Goal Patient Goal Type Associated Problems Recent Progress Patient-Stated? Author LDL < 100 Result Component Hyperlipidemia 113(09/16/201 9 9:29 EDT) No Scudero, Colleen documented as of this encounter Procedures Procedure Name Priority Date/Time Associated Diagnosis Comments LIPID PROFILE (INCLUDES CHOLESTEROL, TRIGLYCERIDES, HDL, LDL) Routine 04/19/2018 9:20 EDT Hyperlipidemia, unspecified hyperlipidemia type COMPREHENSIVE METABOLIC PANEL (CMP) Routine 04/19/2018 9:20 EDT Benign essential hypertension documented in this encounter Results * COMPREHENSIVE METABOLIC PANEL (CMP) (04/19/2018 9:20 EDT) Potassium 4.6 3.5 - 5.0 mEq/L 04/19/2018 11:03 [facility] Sodium 141 136 - 145 mEq/L 04/19/2018 11:03 [facility] Chloride 102 96 - 110 mEq/L 04/19/2018 11:03 [facility] CO2 29 22 - 32 mEq/L 04/19/2018 11:03 [facility] Total Alkaline Phosphatase 65 38 - 126 U/L 04/19/2018 11:03 [facility] Bilirubin, Total 1.2 <1.4 mg/dl 04/19/20 18 11:03 [facility] AST 28 15 - 46 U/L 04/19/2018 11:03 [facility] ALT 45 21 - 72 U/L 04/19/2018 11:03 [facility] Albumin 4.4 3.4 - 4.9 g/dl 04/19/2018 11:03 [facility] Total Protein 6.8 6.3 - 8.2 g/dl 04/19/2018 11:03 [facility] Creatinine 0.79 0.66 - 1.25 mg/dl 04/19/2018 11:03 [facility] GFR, Calculated 92 >60 ml/min/1.7 3m2 04/19/2018 11:03 [facility] Comment: eGFR calculated using CKD-EPI equation for non Americans. Multiply eGFR by 1.16 for Americans. BUN 16 10 - 26 mg/dl 04/19/2018 11:03 EDT [facility] Calcium 9.2 8.5 - 10.5 mg/dl 04/19/2018 11:03 [facility] Calculated Calcium 8.9 8.5 - 10.5 mg/dl 04/19/2018 11:03 [facility] Glucose, Serum 91 70 - 100 mg/dl 04/19/2018 11:03 [facility] Fasting? YES 04/19/2018 9:12 [facility] Blood specimen (specimen) BLOOD SPECIMEN / Unknown 04/19/2018 9:20 EDT 04/19/2018 10:34 EDT Ya Yee MD CHEMISTRY & BLOOD GAS ORD ERABLES Final Result [facility] [address] [place] [address] * LIPID PROFILE (INCLUDES CHOLESTEROL, TRIGLYCERIDES, HDL, LDL) (04/19/2018 9:20 EDT) Cholesterol 231 mg/dl 04/19/2018 11:03 [facility] Comment: Desirable:<200 Borderline High:200-239 High:>rq=888 Triglycerides 130 mg/dl 04/19/2018 11:03 [facility] Comment: Normal:<150 Borderline High:150-199 High:200-499 Very High:>cc=142 HDL 64 mg/dl 04/19/2018 11:03 [facility] Comment: Low:<40 Normal:40-60 Desirable: >60 LDL, Calculated 141 mg/dl 8 11:03 [facility] Comment: Optimal:<100 Near Optimal:100-129 Borderline High:130-159 High:160-189 Very High:>qq=723 Chol/HDL Ratio 3.6 04/19/2018 11:03 [facility] Fasting? YES 04/19/2018 9:12 [facility] Non HDL Cholesterol 167 mg/dl 04/19/2018 11:03 [facility] Comment: Desirable:<130 Borderline:130-159 High: 160-189 Very High: >yf=877 Blood specimen (specimen) BLOOD SPECIMEN / Unknown 04/19/2018 9:20 EDT 04/19/2018 10:34 EDT Ya Yee MD CHEMISTRY & BLOOD GAS ORD ERABLES Final Result [facility] [address] [place] [address] documented in this encounter Visit Diagnoses Diagnosis Hyperlipidemia, unspecified hyperlipidemia type Benign essential hypertension Essential hypertension, benign Need for hepatitis C screening test Special screening examination for other specified viral diseases documented in this encounter Care Teams Skiver Heel Tap Relationship Specialty Start Date End Date Ya Yee MD [address] [place] [phone] PCP - General 02/23/16 10/02/21 documented as of this encounter
--- OUTSIDE RECORDS SUMMARY | 2024-08-28 16:54 | XMS_ITS | Encounter Summary ---
Author Organization [facility] Address [address] [place] [address] Care Team Providers Care Yarn Dyer Name Role Phone Ya Yee MD Primary Care Provider +1 -[phone] Reason for Visit * Reason Comments Follow-up Cerumen Impaction Encounter Details Date Type Department Care Team (Late st Contact Info) Description 12/19/2017 9:20 EDT Office Visit [address] [address] Chetna Noble MD [address] [place] [address], [address] [place] [address] Impacted cerumen of both ears [...] cerumen documented in this encounter Care Teams Yarn Dyer Relationship Specialty Start Date End Date Ya Yee MD [address] [place] [phone] PCP - General 02/23/16 10/02/21 documented as of this encounter
--- OUTSIDE RECORDS SUMMARY | 2024-08-28 16:54 | XMS_ITS | Encounter Summary ---
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 He is and lives with his [...] Mother Alzheimers ??? Heart Disease Father 61 [place] ??? High Blood Pressure Father ??? High [...] his Advance Directives to included in the PSYCHIATRIC electronic medical record. Labs are normal. Health [...] F/u 6 months labs prior (ordered) Today's mdyj-vz-hutq visit time was 45 minutes with 30 [...] prepared with speech recognition software or keyboard director oracle database techniques. Minor irregularities or keyboarding misprints may [...] 9:01 EST) Cholesterol 251 mg/dl 10/21/2018 11:04 [facility] Comment: Desirable:<200 Borderline High:200-239 High:>xo=237 Triglycerides 111 mg/dl 10/21/2018 11:04 [facility] Comment: Normal:<150 Borderline High:150-199 High:200-499 Very High:>xp=737 HDL 63 mg/dl 10/21/2018 11:04 [facility] Comment: Low:<40 Normal:40-60 Desirable: >60 LDL, Calculated 166 mg/dl 9 11:04 [facility] Comment: Optimal:<100 Near Optimal:100-129 Borderline High:130-159 High:160-189 Very High:>ky=014 Chol/HDL Ratio 4.0 10/21/2018 11:04 [facility] Fasting? YES 10/21/2018 8:43 [facility] Non HDL Cholesterol 188 mg/dl 10/21/2018 11:04 [facility] Comment: Desirable:<130 Borderline:130-159 High: 160-189 Very High: >qm=320 Blood specimen (specimen) BLOOD SPECIMEN / Unknown 10/21/2018 9:01 EST 10/21/2018 10:24 EST us Ya Yee MD CHEMISTRY & BLOOD GAS ORD ERABLES Final Result [facility] [address] [place] [address] * PSA SCREEN (10/21/2018 9:01 EST) PSA 0.4 0 - 4.5 ng/ml 10/21/2018 12:46 [facility] Comment: Serum PSA concentration should not be interpreted as absolute evidence for the presence or absence of malignant disease. Assayed utilizing Siemens (Yub) chemiluminescent technology. ??Values obtained by using different assay methods cannot be used interchangeably. Blood specimen (specimen) BLOOD SPECIMEN / Unknown 10/21/2018 9:01 EST 10/21/2018 10:24 EST Ya Yee MD CHEMISTRY & BLOOD GAS ORD ERABLES Final Result Performing Organization Address City/[facility] [address]/ZIP Co de Phone Number [facility] [address] [place] [address] * HEPATITIS C AB W REFLEX TO HCV RNA BY PCR (10/21/2018 9:01 EST) Hep C Ab w Rfx PCR HCSCR2 Negative Negative 10/22/2018 9:56 EST [facility] Blood specimen (specimen) BLOOD SPECIMEN / Unknown 10/21/2018 9:01 EST 10/21/2018 10:24 EST Ya Yee MD CHEMISTRY & BLOOD GAS ORD ERABLES Final Result Performing Organization Address City/[facility] [address]/[facility] Co de Phone Number [facility] [address] [place] [address] documented in this encounter Visit Diagnoses Diagnosis [...] 04/23/2018 documented in this encounter Care Teams Washateria Attendant Relationship Specialty Start Date End Date Ya Yee MD [address] [place] [phone] PCP - General 02/23/16 10/02/21 documented as of this encounter
--- OUTSIDE RECORDS SUMMARY | 2024-08-28 16:54 | XMS_ITS | Encounter Summary ---
Author Organization [facility] Address [address] [place] [address] Care Team Providers Care Senior It Project Manager Name Role Phone Ya Yee MD Primary Care Provider +1 -[phone] Reason for Visit * Reason Comments Follow-up Cerumen Impaction Encounter Details Date Type Department Care Team (Late st Contact Info) Description 10/10/2018 11:05 EST Office Visit [address] [address] Chetna Noble MD [address] [place] [address], [address] [place] [address] Impacted cerumen of both ears [...] cerumen documented in this encounter Care Teams Senior It Project Manager Relationship Specialty Start Date End Date Ya Yee MD [address] [place] [phone] PCP - General 02/23/16 10/02/21 documented as of this encounter
--- OUTSIDE RECORDS SUMMARY | 2024-08-28 16:54 | XMS_ITS | Encounter Summary ---
Author Organization [facility] Address [address] [place] [address] Care Team Providers Care Fire Services Plumber Name Role Phone Ya Yee MD Primary Care Provider +1 -[phone] Reason for Visit * Reason Comments Follow-up torso pain Encounter Details Date Type Department Care Team (Late st Contact Info) Description 08/07/2017 9:00 EST Office Visit [facility] Adult Primary Care - [address] [phone] Ya Yee MD [address] [place] [address] Rib pain (Primary Dx); Fatigue, [...] 08/07/2017 9:12 EST documented in this encounter Progress Notes [...] nuclear stress test 4-[address] [facility]. HE tells me that thenuclear test was [...] prn Fatigue, unspecified type - monitor Today's fuup-vc-mbrx visit time was 30 minutes with 20 [...] with speech recognition software or keyboard data analytics analyst techniques. Minor irregularities or keyboarding misprints [...] Mother Alzheimers ??? Heart Disease Father 61 [place] ??? High Blood Pressure Father ??? High [...] type documented in this encounter Care Teams Fire Services Plumber Relationship Specialty Start Date End Date Ya Yee MD [address] [place] [phone] PCP - General 02/23/16 10/02/21 documented as of this encounter
--- OUTSIDE RECORDS SUMMARY | 2024-08-28 16:54 | XMS_ITS | Encounter Summary ---
Author Organization [facility] Address [address] [place] [address] Care Team Providers Care Casino Host Name Role Phone Ya Yee MD Primary Care Provider +1 -[phone] Reason for Visit * Reason Comments Cerumen Impaction Encounter Details Date Type Department Care Team (Late st Contact Info) Description 12/21/2016 11:05 EDT Office Visit [facility] [address] [place], [place] [address] Chetna Noble MD [address] [place] [address], [address] [place] [address] Bilateral impacted cerumen (Primary Dx) [...] cerumen documented in this encounter Care Teams Casino Host Relationship Specialty Start Date End Date Ya Yee MD [address] [place] [phone] PCP - General 02/23/16 10/02/21 documented as of this encounter
--- OUTSIDE RECORDS SUMMARY | 2024-08-28 16:54 | XMS_ITS | Encounter Summary ---
Author Organization [facility] Address [address] [place] [address] Care Team Providers Care Thread Reeler Name Role Phone Ya Yee MD Primary Care Provider +1 -[phone] Reason for Visit * Reason Onset Date Comments Dizziness 01/21/2017 Encounter Details Date Type Department Care Team (Late st Contact Info) Description 01/21/2017 Telephone [facility] Adult Primary Care - [address] [phone] Ya Yee MD [address] [place] [address] Dizziness Social History Tobacco Use Types [...] on filedocumented in this encounter Care Teams Thread Reeler Relationship Specialty Start Date End Date Ya eYe MD [address] [place] [phone] PCP - General 02/23/16 10/02/21 documented as of this encounter
--- OUTSIDE RECORDS SUMMARY | 2024-08-28 16:54 | XMS_ITS | Encounter Summary ---
Author Organization [facility] Address [address] [place] [address] Care Team Providers Care Scrap Baller Name Role Phone Ya Yee MD Primary Care Provider +1 -[phone] Reason for Visit * Reason Onset Date Comments Follow-up 03/07/2018 Encounter Details Date Type Department Care Team (Late st Contact Info) Description 03/07/[address] [facility] Adult Primary Care - [address] [phone] Lauren Grimes PA-C [address] [place] [address] Follow-up Social History Tobacco Use [...] 12/19/2017 9:29 EDT documented in this encounter Ordered Prescriptions Prescription Sig Dispense Quantity Refills Last Filled Start Date End Date metroNIDAZOLE (FLAGYL) 500 mg tablet Take 1 [...] documented as of this encounter Care Teams Scrap Baller Relationship Specialty Start Date End Date Ya Yee MD [address] [place] [phone] PCP - General 02/23/16 10/02/21 documented as of this encounter
--- OUTSIDE RECORDS SUMMARY | 2024-08-28 16:54 | XMS_ITS | Encounter Summary ---
Author Organization [facility] Address [address] [place] [address] Care Team Providers Care Animation Producer Name Role Phone Ya Yee MD Primary Care Provider +1 -[phone] Encounter Details Date Type Department Care Team (Latest Contact Info) Description 03/14/2018 13:57 EDT - 03/14/2018 23:59 EDT Hospital Encounter [address] [address] Gilmer Angel MD [address] [place] [address] Discharge Disposition: Auto Discharge Social History Tobacco [...] documented in this encounter Discharge Diagnoses Diagnosis N20.0 Calculus [...] on filedocumented in this encounter Care Teams Animation Producer Relationship Specialty Start Date End Date Ya Yee MD [address] [place] [phone] PCP - General 02/23/16 10/02/21 documented as of this encounter
--- OUTSIDE RECORDS SUMMARY | 2024-08-28 16:54 | XMS_ITS | Encounter Summary ---
Author Organization [facility] Address [address] [place] [address] Care Team Providers Care Office Assistance Name Role Phone Ya Yee MD Primary Care Provider +1 -[phone] Encounter Details Date Type Department Care Team (Late st Contact Info) Description 10/21/2018 8:29 EST - 10/21/2018 23:59 EST Hospital Encounter [facility] [address] [place] [address] Ya Yee MD [address] [place] [phone] Discharge Disposition: Home or Self Care [...] Code Departure Means Destination Home or Self Fdc documented in this encounter Plan of Treatment Not on file documented as of this encounter Goals Goal Patient Goal Type Associated Problems Recent Progress Patient-Stated? Author LDL < 100 Result Component Hyperlipidemia 113( 9 9:29 EDT) Colleen Gracia documented as of this encounter Visit Diagnoses Not on filedocumented in this encounter Care Teams Office Assistance Relationship Specialty Start Date End Date Ya Yee MD [address] [place] [phone] PCP - General 02/23/16 10/02/21 documented as of this encounter
--- OUTSIDE RECORDS SUMMARY | 2024-08-28 16:54 | XMS_ITS | Encounter Summary ---
Author Organization [facility] Address [address] [place] [address] Care Team Providers Care Bias Cutter Helper Name Role Phone Ya Yee MD Primary Care Provider +1 [phone] Reason for Visit * Reason Comments Sinus Problems since Sep 21 - had gotten slighly better but over last couple of days chest tightness and sinus pressure Cough had dry cough, now i s coughing up phlegm Encounter Details Date Type Department Care Team (Late st Contact Info) Description 10/07/2017 15:30 EST [facility] - [address] [address] Felipa Winchester MD [address] [place] [phone] Acute maxillary sinusitis, recurrence not specified [...] 08/07/2017 9:12 EST documented in this encounter Patient Instructions * Patient Instructions* Felipa Winchester MD - 10/07/2017 15:30 EST flonase nasal spray twice daily Continue sudafed For the future, try a sinus rinse like Timoteo Med or Netipot augmentin twice daily for ten days. documented in this encounter Ordered Prescriptions Prescription Sig Dispense Quantity Refills Last Filled Start Date End Date fluticasone (FLONASE) 50 mcg/actuation nasal spray Instill 1 Bokeelia into both nostrils 2 times daily. 1 Bottle 2 10/07/2017 8 amoxicillin-clavul anate (AUGMENTIN) 875-125 mg per tablet Take 1 Tab by mouth 2 times daily. 20 Tab 10/07/2017 8 documented in this encounter Progress Notes * [...] (FLONASE) 50 mcg/actuation nasal spray Instill 1 Bokeelia into both nostrils 2 times daily. ibuprofen [...] may reflect changes made after this encounter. ibuprofen (MOTRIN) 200 mg tablet Take 200 mg by mouth every 6 hours as needed for Pain. 11/03/2018 acetaminophen (TYLENOL) 325 mg tablet Take 650 mg by mouth every 4 hours as needed for Pain. 11/03/2018 added in this encounter Care Teams Bias Cutter Helper Relationship Specialty Start Date End Date Ya Yee MD [address] [place] [phone] PCP - General 02/23/16 10/02/21 documented as of this encounter
--- OUTSIDE RECORDS SUMMARY | 2024-08-28 16:54 | XMS_ITS | Encounter Summary ---
Author Organization [facility] Address [address] [place] [address] Care Team Providers Care Offal Baler Name Role Phone Ya Yee MD Primary Care Provider +1 [phone] Encounter Details Date Type Department Care Team (Late st Contact Info) Description 10/21/[address] [facility] [address] [place] [address] Warm In Worker, Outpatient Hyperlipidemia, unspecified hyperlipidemia type; Prostate cancer [...] Result Component Hyperlipidemia 113( 9 9:29 EDT) Bushra Arora Colleen documented as of this encounter Procedures [...] PCR HCSCR2 Negative Negative 10/22/2018 9:56 EST [facility] Blood specimen (specimen) BLOOD SPECIMEN / Unknown 10/21/2018 9:01 EST 10/21/2018 10:24 EST Ya Yee MD CHEMISTRY & BLOOD GAS ORD ERABLES Final Result Performing Organization Address City/[facility]/ZIP Co de Phone Number [facility] [address] [place] [address] * PSA SCREEN (10/21/2018 9:01 EST) PSA 0.4 0 - 4.5 ng/ml 10/21/2018 12:46 EST [facility] Comment: Serum PSA concentration should not be interpreted as absolute evidence for the presence or absence of malignant disease. Assayed utilizing Siemens ([employer]) chemiluminescent technology. ??Values obtained by using different assay methods cannot be used interchangeably. Blood specimen (specimen) BLOOD SPECIMEN / Unknown 10/21/2018 9:01 EST 10/21/2018 10:24 EST Ya Yee MD CHEMISTRY & BLOOD GAS ORD ERABLES Final Result Performing Organization Address City/[facility]/ZIP Co de Phone Number [facility] [address] [place] [address] * LIPID PROFILE (INCLUDES CHOLESTEROL, TRIGLYCERIDES, HDL, LDL) (10/21/2018 9:01 EST) Cholesterol 251 mg/dl 10/21/2018 11:04 [facility] Comment: Desirable:<200 Borderline High:200-239 High:>vj=007 Triglycerides 111 mg/dl 10/21/2018 11:04 [facility] Comment: Normal:<150 Borderline High:150-199 High:200-499 Very High:>is=781 HDL 63 mg/dl 10/21/2018 11:04 [facility] Comment: Low:<40 Normal:40-60 Desirable: >60 LDL, Calculated 166 mg/dl 9 11:04 [facility] Comment: Optimal:<100 Near Optimal:100-129 Borderline High:130-159 High:160-189 Very High:>km=780 Chol/HDL Ratio 4.0 10/21/2018 11:04 [facility] Fasting? YES 10/21/2018 8:43 [facility] Non HDL Cholesterol 188 mg/dl 10/21/2018 11:04 [facility] Comment: Desirable:<130 Borderline:130-159 High: 160-189 Very High: >jg=027 Blood specimen (specimen) BLOOD SPECIMEN / Unknown 10/21/2018 9:01 EST 10/21/2018 10:24 EST Ya Yee MD CHEMISTRY & BLOOD GAS ORD ERABLES Final Result [facility] [address] [place] [address] documented in this encounter Visit Diagnoses Diagnosis Hyperlipidemia, unspecified hyperlipidemia type Prostate cancer screening Special screening for malignant neoplasm of prostate Encounter for hepatitis C screening test for low risk patient documented in this encounter Care Teams Offal Baler Relationship Specialty Start Date End Date Ya Yee MD [address] [place] [phone] PCP - General 02/23/16 10/02/21 documented as of this encounter
--- OUTSIDE RECORDS SUMMARY | 2024-08-28 16:54 | XMS_ITS | Encounter Summary ---
Author Organization [facility] Address [address] [place] [address] Care Team Providers Care Supervisor [employer] Name Role Phone Ya Yee MD Primary Care Provider +1 [phone] Reason for Referral * Radiology Services (Routine) - Specialty Report Received Specialty Diagnoses / Procedures Referred By Contac t Referred To Contact Diagnoses Acute left flank pain Procedures RAD US RETROPERITONEAL COMPLETE Gilmer Angel MD Phone: tel: fax: Referral ID Status Reason Start Date Expiration Date V isits Requested Visits Authorized [id number] Specialty Report Received 03/10/2018 1 1 Reason for Visit * Reason Comments Abdominal Pain Encounter Details Date Type Department Care Team (Late st Contact Info) Description 03/10/2018 16:15 EDT Office Visit [facility] Adult Primary Care - [place] [address] [place], [place] [phone] Gilmer Angel MD [address] [place], [place] [phone] Acute left flank pain (Primary Dx) Social [...] 03/10/2018 16:13 EDT documented in this encounter Patient Instructions [...] changes of lumbar spine. CT renal colic (12/24/13) Impression: ?? 1. No acute abnormalities. No [...] the findings. Gilmer Angel MD IMG US ORDERABLES F inal Result * URINE CULTURE IF UA POSITIVE - NON POCT URINALYSIS ONLY (03/11/2018 11:49 EDT) Culture if Indicated Culture not indicated by urinalysis results. 03/11/2018 12:[address] [facility] Urine specimen (specimen) TOPOGRAPHY UNKNOWN / Unknown 03/11/2018 11:49 EDT 03/11/2018 12:38 EDT Gilmer Angel MD MICROBIOLOGY - [facility] ORDERABLES Final Result [facility] [address] [place] [phone] * UA, CHEMICAL AND SEDIMENT ANALYSIS (DIPSTICK AND MICROSCOPIC) (03/11/2018 11:49 EDT) Color, UA Colorless 03/11/2018 12:[address] [facility] Clarity, UA Clear 03/11/2018 12:[address] [facility] Glucose, UA Neg Neg 03/11/2018 12:[address] [facility] Bilirubin, UA Neg Neg 03/11/2018 12:[address] [facility] Ketones, UA Neg Neg 03/11/2018 12:[address] [facility] Refractometer SG,Urine 1.007 1.001 - 1.035 03/11/2018 12:[address] [facility] Blood, UA Neg Neg 03/11/2018 12:[address] [facility] pH, UA 6.5 4.6 - 8.0 03/11/2018 12:[address] [facility] Protein, UA Neg Neg 03/11/2018 12:[address] [facility] Urobilinogen, UA Normal Normal E.U./dl 03/11/2018 12:[address] [facility] Nitrite, UA Neg Neg 03/11/2018 12:[address] [facility] Leuk Esterase Neg Neg 03/11/2018 12:[address] [facility] UA Method Used 03/11/2018 11:[address] [facility] Comment: Testing performed using [employer] [id number]-4050. Urine RBC Count Automated 0 to 2 0 to 2 /HPF 03/11/2018 12:[address] [facility] Urine WBC Count Automated 0 to 3 0 to 3 /HPF 03/11/2018 12:48 [facility] Urine Squamous Epithelial Cell Count, Automated None seen None seen /LPF 03/11/2018 12:48 [facility] Urine Hyaline Casts, Automated < or = 10 < or = 10 /LPF 03/11/2018 12:48 [facility] Urine Bacteria Count, Automated None seen None seen 03/11/2018 12:[address] [facility] UA Comment Sediment results 03/11/2018 12:48 [facility] Comment: are unreliable on urines unrefrig >2hrs or refrig >8hrs. Urine specimen (specimen) URINE / Unknown 03/11/2018 11:49 EDT 03/11/2018 12:38 EDT us Gilmer Angel MD URINALYSIS ORDERABL ES Final Result [facility] [address] [place] [address] * COMPLETE BLOOD COUNT AND DIFFERENTIAL (03/11/2018 11:49 EDT) WBC 5.40 4.0 - 10.4 K/cmm 03/11/2018 12:[address] [facility] RBC 4.80 4.36 - 5.78 M/cmm 03/11/2018 12:51 [facility] Hemoglobin 15.6 13.8 - 17.3 gm/dl 03/11/2018 12:51 [facility] HCT 44.2 39.5 - 50.2 % 03/11/2018 12:51 [facility] MCV 92 81 - 95 fl 03/11/2018 12:51 [facility] MCH 32.5 27.6 - 33.0 pg 03/11/2018 12:51 [facility] MCHC 35.3 32.8 - 36.4 gm/dl 03/11/2018 12:51 [facility] RDW-CV 12.6 <14.2 % 03/11/2018 12:51 [facility] RDW-SD 42.3 <46.0 fl 03/11/2018 12:51 [facility] PLT 248 141 - 377 K/cmm 03/11/2018 12:51 [facility] MPV 11.0 9.5 - 12.7 fl 03/11/2018 12:51 [facility] % Neutrophils 62.4 % 03/11/2018 12:51 [facility] % Lymphocytes 23.0 % 03/11/2018 12:51 [facility] % Monocytes 11.3 % 03/11/2018 12:51 [facility] % Eosinophils 2.4 % 03/11/2018 12:51 [facility] % Basophils 0.7 % 03/11/2018 12:51 [facility] % Immature Grans 0.2 % 03/11/2018 12:51 [facility] ABS Neutrophils 3.37 2.20 - 8.85 K/cmm 03/11/2018 12:51 [facility] ABS Lymphs 1.24 1.09 - 3.30 K/cmm 03/11/2018 12:51 [facility] ABS Monocytes 0.61 0.1 - 0.8 K/cmm 03/11/2018 12:51 [facility] ABS Eosinophils 0.13 0.03 - 0.61 K/cmm 03/11/2018 12:[address] [facility] ABS Basophils 0.04 0.01 - 0.11 K/cmm 03/11/2018 12:[address] [facility] ABS Immature Grans 0.01 0 - 0.06 K/cmm 03/11/2018 12:[address] [facility] Type of Diff: Automated 03/11/2018 12:[address] [facility] Blood specimen (specimen) BLOOD SPECIMEN / Unknown 03/11/2018 11:49 EDT 03/11/2018 12:42 EDT Gilmer Angel MD PACKAGES & DNA PROB E ORDERABLES Final Result Performing Organization Address [facility] Co de Phone Number [facility] [address] [place] [address] * C REACTIVE PROTEIN (03/11/2018 11:49 EDT) C Reactive Protein <7.0 <10.0 mg/L 03/11/2018 13:[address] [facility] Blood specimen (specimen) BLOOD SPECIMEN / Unknown 03/11/2018 11:49 EDT 03/11/2018 12:42 EDT us Gilmer Angel MD CHEMISTRY & BLOOD G ORDERABLES Final Result Performing Organization Address [facility] Co de Phone Number [facility] [address] [place] [address] documented in this encounter Visit Diagnoses Diagnosis [...] may reflect changes made after this encounter. Cholecalciferol, Vitamin D3, 400 unit tablet Take 1,000 Units by mouth daily. added in this encounter Care Teams Supervisor [employer] Relationship Specialty Start Date End Date Ya Yee MD [address] [place] [phone] PCP - General 02/23/16 10/02/21 documented as of this encounter
--- OUTSIDE RECORDS SUMMARY | 2024-08-28 16:54 | XMS_ITS | Encounter Summary ---
Author Organization [facility] Address [address] [place] [address] Care Team Providers Care Home Health Billing Specialist Name Role Phone Ya Yee MD Primary Care Provider +1 [phone] Reason for Referral * PT/OT/ST (Routine) - Closed Specialty Diagnoses / Procedures [facility] Rehab Therapies Diagnoses BPPV (benign paroxysmal positional vertigo), right Ya Yee MD Phone: tel: fax: [facility] Rehabilitation Therapy - Medical Office Building [address] [place] [address] Phone: tel: fax: Referral ID Status Reason Start Date Expiration Date V isits Requested Visits Authorized [id number] Closed Specialty Services Required 01/16/2017 1 1 Question Answer Reason for Request: 66yo man with suspected BPPV Reason for Visit * Reason Comments Fatigue with dizziness and n auseous - 10 days ago Headache slight headache top left side of head Encounter Details Date Type Department Care Team (Late st Contact Info) Description 01/16/2017 10:00 EDT Office Visit [facility] Adult Primary Care - [address] [address] Ya Yee MD [address] [place] [phone] BPPV (benign paroxysmal positional vertigo), right (Primary [...] 142/92 01/16/2017 0958 EDT Pulse 74 01/16/2017 0958 EDT Temperature 36.1 ??C (97 ??F) 01/16/2017 0958 EDT Respiratory Rate - - Oxygen Saturation - - Inhaled Oxygen Concentration - - Weight 75.3 kg (166 lb) 01/16/2017 0958 EDT Height - - Body Mass Index [...] 08/27/2016 10:05 EST documented in this encounter Patient Instructions * Patient Instructions* Ya Yee MD - 01/16/2017 10:00 EDT Images from the original note were not included. [facility] Patient Instructions Benign Paroxysmal Positional Vertigo (BPPV): [...] Where can you learn more? Go to [email or web address] or log into your [employer] Online account at [email or web address]. Enter P372 in the search box to learn more about Benign Paroxysmal Positional Vertigo (BPPV): CareInstructions. Current as of: March 16, 2016 Content Version: 11.2 ?? [id number] [employer]. Care instructions adapted under license by [facility] If you have questions about a medical condition or this instruction, always ask your healthcare professional. [employer] disclaims any warranty or liability foryour use of this information. documented in this encounter Ordered Prescriptions Prescription Sig Dispense Quantity Refills Last Filled Start Date End Date meclizine (ANTIVERT) 12.5 mg tablet Take 1-2 [...] intact. Normal strength, sensation and reflexes throughout. 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 Letter for work provided. Today's roty-re-kkym visit time was 30 minutes with 20 [...] speech recognition software or keyboard data entry email processor techniques. Minor irregularities or keyboarding misprints may [...] may reflect changes made after this encounter. ERGOCALCIFEROL, VITAMIN D2, (VITAMIN D ORAL) Take by mouth daily. 03/10/2018 added in this encounter Care Teams Home Health Billing Specialist Relationship Specialty Start Date End Date Ya Yee MD [address] [place] [phone] PCP - General 02/23/16 10/02/21 documented as of this encounter
--- OUTSIDE RECORDS SUMMARY | 2024-08-28 16:54 | XMS_ITS | Encounter Summary ---
Author Organization [facility] Address [address] [place] [address] Care Team Providers Care Permanent Mold Supervisor Name Role Phone Ya Mcdermott MD Primary Care Provider +1 -[phone] Reason for Visit * Reason Onset Date Comments Paperwork request 10/11/2016 PT Dropped of employer workplace program to be signed by dr mcdermott and mailed back in [employer] Encounter Details Date Type Department Care Team (Late st Contact Info) Description 10/11/2016 Telephone [facility] Adult Primary Care - [address] [phone] Ya Mcdermott MD [address] [place] [phone] Paperwork request (PT Dropped of employer workplace program to be signed by dr mcdermott and mailed back in [employer]) Social History Tobacco Use Types Packs/Day Years [...] on filedocumented in this encounter Care Teams Permanent Mold Supervisor Relationship Specialty Start Date End Date Ya Mcdermott MD [address] [place] [phone] PCP - General 02/23/16 10/02/21 documented as of this encounter
--- OUTSIDE RECORDS SUMMARY | 2024-08-28 16:54 | XMS_ITS | Encounter Summary ---
Author Organization [facility] Address [address] [place] [address] Care Team Providers Care Industrial Services Worker Name Role Phone Ya Yee MD Primary Care Provider +1 [phone] Reason for Visit * Reason Comments Facial Pain nasal congestion x 3 weeks, over last 48 hrs, now with chest congestion and productive cough Encounter Details Date Type Department Care Team (Latest Contact Info) Description 08/11/2018 10:22 EST - 08/11/2018 10:59 EST Hospital Encounter [facility] Urgent Care - [address] [address] Unknown, Provider, Patient left without being seen [...] 04/23/2018 8:16 EDT documented in this encounter Medications at Time [...] decision documented in this encounter Care Teams Industrial Services Worker Relationship Specialty Start Date End Date Ya Yee MD [address] [place] [phone] PCP - General 02/23/16 10/02/21 documented as of this encounter
--- OUTSIDE RECORDS SUMMARY | 2024-08-28 16:54 | XMS_ITS | Encounter Summary ---
Author Organization [facility] Address [address] [place] [address] Care Team Providers Care Washroom Operator Name Role Phone Ya Yee MD Primary Care Provider +1 [phone] Reason for Visit * Reason Comments Cerumen Impaction Encounter Details Date Type Department Care Team (Late st Contact Info) Description 09/26/2017 9:55 EST Office Visit [facility] [address] [place], [place] [phone] Chetna Noble MD [address] [place] [address], [address] [place] [phone] Bilateral impacted cerumen (Primary Dx) [...] cerumen documented in this encounter Care Teams Washroom Operator Relationship Specialty Start Date End Date Ya Yee MD [address] [place] [phone] PCP - General 02/23/16 10/02/21 documented as of this encounter
--- OUTSIDE RECORDS SUMMARY | 2024-08-28 16:54 | XMS_ITS | Encounter Summary ---
Author Organization [facility] Address [address] [place] [address] Care Team Providers Care Loan Originator Name Role Phone Ya Yee MD Primary Care Provider [phone] [phone] Reason for Visit * Reason Onset Date Comments Labs Only 04/10/2018 Encounter Details Date Type Department Care Team (Late st Contact Info) Description 04/10/2018 Orders Only [facility] Adult Primary Care - [address] [phone] Ya Yee MD [address] [place] [phone] Hyperlipidemia, unspecified hyperlipidemia type (Primary Dx); [...] 03/10/2018 16:13 EDT documented in this encounter Progress Notes [...] 4.6 3.5 - 5.0 mEq/L 04/19/2018 11:03 [facility] Sodium 141 136 - 145 mEq/L 04/19/2018 11:03 [facility] Chloride 102 96 - 110 mEq/L 04/19/2018 11:03 [facility] CO2 29 22 - 32 mEq/L 04/19/2018 11:03 [facility] Total Alkaline Phosphatase 65 38 - 126 U/L 04/19/2018 11:03 [facility] Bilirubin, Total 1.2 <1.4 mg/dl 04/19/20 18 11:03 [facility] AST 28 15 - 46 U/L 04/19/2018 11:03 [facility] ALT 45 21 - 72 U/L 04/19/2018 11:03 [facility] Albumin 4.4 3.4 - 4.9 g/dl 04/19/2018 11:03 [facility] Total Protein 6.8 6.3 - 8.2 g/dl 04/19/2018 11:03 [facility] Creatinine 0.79 0.66 - 1.25 mg/dl 04/19/2018 11:03 [facility] GFR, Calculated 92 >60 ml/min/1.7 3m2 04/19/2018 11:03 [facility] Comment: eGFR calculated using CKD-EPI equation for non Americans. Multiply eGFR by 1.16 for Americans. BUN 16 10 - 26 mg/dl 04/19/2018 11:03 [facility] Calcium 9.2 8.5 - 10.5 mg/dl 04/19/2018 11:03 [facility] Calculated Calcium 8.9 8.5 - 10.5 mg/dl 04/19/2018 11:03 [facility] Glucose, Serum 91 70 - 100 mg/dl 04/19/2018 11:03 [facility] Fasting? YES 04/19/2018 9:12 [facility] Blood specimen (specimen) BLOOD SPECIMEN / Unknown 04/19/2018 9:20 EDT 04/19/2018 10:34 EDT Ya Yee MD CHEMISTRY & BLOOD GAS ORD ERABLES Final Result [facility] [address] [place] [address] * LIPID PROFILE (INCLUDES CHOLESTEROL, TRIGLYCERIDES, HDL, LDL) (04/19/2018 9:20 EDT) Cholesterol 231 mg/dl 04/19/2018 11:03 [facility] Comment: Desirable:<200 Borderline High:200-239 High:>kx=777 Triglycerides 130 mg/dl 04/19/2018 11:03 [facility] Comment: Normal:<150 Borderline High:150-199 High:200-499 Very High:>xn=102 HDL 64 mg/dl 04/19/2018 11:03 [facility] Comment: Low:<40 Normal:40-60 Desirable: >60 LDL, Calculated 141 mg/dl 8 11:03 [facility] Comment: Optimal:<100 Near Optimal:100-129 Borderline High:130-159 High:160-189 Very High:>ev=565 Chol/HDL Ratio 3.6 04/19/2018 11:03 [facility] Fasting? YES 04/19/2018 9:12 EDT [facility] Non HDL Cholesterol 167 mg/dl 04/19/2018 11:03 EDT [facility] Comment: Desirable:<130 Borderline:130-159 High: 160-189 Very High: >pz=136 Blood specimen (specimen) BLOOD SPECIMEN / Unknown 04/19/2018 9:20 EDT 04/19/2018 10:34 EDT Ya Yee MD CHEMISTRY & BLOOD GAS ORD ERABLES Final Result [facility] [address] [place] [address] documented in this encounter Visit Diagnoses Diagnosis [...] 04/10/2018 documented in this encounter Care Teams Loan Originator Relationship Specialty Start Date End Date Ya Yee MD [address] [place] [phone] PCP - General 02/23/16 10/02/21 documented as of this encounter
--- OUTSIDE RECORDS SUMMARY | 2024-08-28 16:54 | XMS_ITS | Encounter Summary ---
Author Organization [facility] Address [address] [place] [address] Care Team Providers Care Dimension Specification Inspector Name Role Phone Ya Yee MD Primary Care Provider +1 -[phone] Reason for Referral * Referral (Routine) - Specialty Report Received Specialty Diagnoses / Procedures Referred By Contact Referred To Contact Gastroenterology and Hepatology Diagnoses Screening for colorectal cancer Procedures COLONOSCOPY REQUEST Ya Yee MD Phone: tel:[phone] fax:[phone] [facility] Gastroenterology - Main [place] [address] [place] [address] Phone: tel: fax: Referral ID Status Reason Start Date Expiration Date V isits Requested Visits Authorized [id number] Specialty Report Received 11/03/2018 1 1 Reason for Visit * Reason Comments Hyperlipidemia Knee Pain Results lab Encounter Details Date Type Department Care Team (Late st Contact Info) Description 11/03/2018 10:15 EDT Office Visit [facility] Adult Primary Care - [address] [address] Ya Yee MD [address] [place] [phone] Hyperlipidemia, unspecified hyperlipidemia type (Primary Dx); [...] Refills Last Filled Start Date End Date polyethylene glycol (GOLYTELY;NULYTEL Y) 236-22.74-6.74 -5.86 gram suspension Instructions mailed once procedure scheduled. Questions: [facility] Gastroenterology: [phone] or GI Doctor's Office. 4000 mL 11/03/2018 9 documented in this encounter Progress Notes * Ya Yee MD, MD - 11/03/2018 1015 EDT Patient ID: Luis [...] suspension Instructions mailed once procedure scheduled. Questions: [facility] Gastroenterology: [phone] or GI Doctor's Office. (Patient not taking: [...] gram suspension; Instructions mailedonce procedure scheduled. Questions: [facility] Gastroenterology: [phone] or GI Doctor's Office. (Patient not taking: Reported on 11/03/2018) F/u 6 months for AWV lipids and BMP prior Today's pfdw-pv-ovbu visit time was 30 minutes with 20 [...] with speech recognition software or keyboard database designer techniques. Minor irregularities or keyboarding misprints may [...] Mother Alzheimers ??? Heart Disease Father 61 [place] ??? High Blood Pressure Father ??? High [...] documented as of this encounter Care Teams Dimension Specification Inspector Relationship Specialty Start Date End Date Ya Yee MD [address] [place] [phone] PCP - General 02/23/16 10/02/21 documented as of this encounter
--- OUTSIDE RECORDS SUMMARY | 2024-08-28 16:54 | XMS_ITS | Encounter Summary ---
Author Organization [facility] Address [address] [place] [address] Care Team Providers Care Director Product Development Name Role Phone Ya Yee MD Primary Care Provider [phone] [phone] Reason for Visit * Reason Onset Date Comments Cough 05/23/2017 Encounter Details Date Type Department Care Team (Late st Contact Info) Description 05/23/2017 Telephone [facility] Adult Primary Care - [address] [phone] Ya Yee MD [address] [place] [phone] Cough Social History Tobacco Use Types [...] 03/26/2017 8:13 EDT documented in this encounter Ordered Prescriptions Prescription Sig Dispense Quantity Refills Last Filled Start Date End Date azithromycin (ZITHROMAX) 250 mg tablet Take 2 tablets (500 mg) on Day 1, followed by 1 tablet (250 mg) once daily on Days 2 through 5. 6 Tab 05/23/2017 8 documented in this encounter Miscellaneous Notes * Telephone Encounter - Christine Camara RN - 05/23/2017 1654 EDT Informed Luis that Dr Mccabe has ordered a Zpac and it has been sent to [facility] in [place]. * Telephone Encounter - Milena Mccabe MD - 05/23/2017 1623 EDT OK. Prescription for a z-pack has been sent to his pharmacy. Please let him know. * Telephone Encounter - Savannah Atkins - 05/23/2017 0914 EDT Reason for Call: Cough Summary/Symptoms: Patient seen earlier this week for URI. States cough and sinus symptoms have gotten worse. Pharmacy is [facility] on [address] Savannah Wilbert 05/23/2017 9:15 documented in this encounter Plan of Treatment Not on file documented as of this encounter Goals Goal Patient Goal Type Associated Problems Recent Progress Patient-Stated? Author LDL < 100 Result Component Hyperlipidemia 113( 9 9:29 EDT) No Colleen Arora documented as of this encounter Visit Diagnoses Not on filedocumented in this encounter Care Teams Director Product Development Relationship Specialty Start Date End Date Ya Yee MD [address] [place] [phone] PCP - General 02/23/16 10/02/21 documented as of this encounter
--- OUTSIDE RECORDS SUMMARY | 2024-08-28 16:54 | XMS_ITS | Encounter Summary ---
Author Organization [facility] Address [address] [place] [address] Care Team Providers Care Whiskey Regauger Name Role Phone Ya Yee MD Primary Care Provider +1 [phone] Reason for Visit * Reason Comments Follow-up Cerumen Impaction Encounter Details Date Type Department Care Team (Late st Contact Info) Description 03/20/2018 9:20 EDT Office Visit [address] [phone] Chetna Noble MD [address] [place] [address], [address] [place] [address] Impacted cerumen of both ears [...] Component Hyperlipidemia 113( 9 9:29 EDT) No Scdeyanirao Colleen documented as of this encounter Visit Diagnoses Diagnosis Impacted cerumen of both ears- Primary Impacted cerumen documented in this encounter Care Teams Whiskey Regauger Relationship Specialty Start Date End Date Ya Yee MD [address] [place] [phone] PCP - General 02/23/16 10/02/21 documented as of this encounter
--- OUTSIDE RECORDS SUMMARY | 2024-08-28 16:54 | XMS_ITS | Encounter Summary ---
Author Organization [facility] Address [address] [place] [address] Care Team Providers Care Tool And Fixture Repairer Name Role Phone Ya Yee MD Primary Care Provider +1 [phone] Reason for Visit * Reason Comments Diarrhea Onset one week Nausea Abdominal Cramping Encounter Details Date Type Department Care Team (Late st Contact Info) Description 03/03/2018 16:15 EDT Office Visit [facility] Adult Primary Care - [address] [phone] Lauren Grimes PA-C [address] [place] [address] Acute diverticulitis (Primary Dx) Social [...] 12/19/2017 9:29 EDT documented in this encounter Patient Instructions [...] (FLONASE) 50 mcg/actuation nasal spray Instill 1 [place] into both nostrils 2 times daily. Patient Stopped Taking 10/07/2017 03/03/2018 documented as of this encounter Care Teams Tool And Fixture Repairer Relationship Specialty Start Date End Date Ya Yee MD [address] [place] [phone] PCP - General 02/23/16 10/02/21 documented as of this encounter
--- OUTSIDE RECORDS SUMMARY | 2024-08-28 16:54 | XMS_ITS | Encounter Summary ---
Author Organization [facility] Address [address] [place] [address] Care Team Providers Care Administrative Operations Coordinator Name Role Phone aY Yee MD Primary Care Provider +1 -[phone] Encounter Details Date Type Department Care Team (Late st Contact Info) Description 01/18/2017 9:16 EDT - 01/18/2017 23:59 EDT Hospital Encounter [facility] - Medical Office Building [phone] Ya Yee MD [address] [place] [phone] Discharge Disposition: Home or Self Care [...] documented in this encounter Discharge Diagnoses Diagnosis H81.11 Benign paroxysmal vertigo, right ear-H81.11[ICD-10-CM] documented in this encounter Medications at Time of Discharge ERGOCALCIFEROL, VITAMIN D2, (VITAMIN D ORAL) Take by mouth daily. 03/10/2018 meclizine (ANTIVERT) 12.5 mg tablet Take 1-2 Tabs by mouth 3 times daily as needed for Dizziness. 30 Tab 1 01/16/2017 03/03/2018 documented as of this encounter Discharge Disposition Disposition Code Departure Means Destination Home or Self Long Term documented in this encounter Plan of Treatment Not on file documented as of this encounter Goals Goal Patient Goal Type Associated Problems Recent Progress Patient-Stated? Author LDL < 100 Result Component Hyperlipidemia 113( 9 9:29 EDT) Colleen Gracia documented as of this encounter Visit Diagnoses Not on filedocumented in this encounter Care Teams Administrative Operations Coordinator Relationship Specialty Start Date End Date Ya Yee MD [address] [place] [phone] PCP - General 02/23/16 10/02/21 documented as of this encounter
--- OUTSIDE RECORDS SUMMARY | 2024-08-28 16:54 | XMS_ITS | Encounter Summary ---
Author Organization [facility] Address [address] [place] [address] Care Team Providers Care Fuel Management Handler Name Role Phone Ya Yee MD Primary Care Provider +1 -[phone] Reason for Referral * Radiology Services (Routine) - Closed Specialty Diagnoses / Procedures Referred By Contac t Referred To Contact Diagnoses Rib pain Procedures CHEST PA AND LATERAL Ya Yee MD Phone: tel: fax: Referral ID Status Reason Start Date Expiration Date Visits Re quested Visits Authorized [id number] Closed 08/27/2016 1 1 Reason for Visit * Reason Comments Annual Exam Shoulder Pain should muscle pains? 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 He is and lives with his . [...] SOB. NO f/c, night sweats, GI complaints. [place] in 2014 wnl. Also has some fatigue. [...] Mother Alzheimers ??? Heart Disease Father [address] [place] ??? High Blood Pressure Father ??? High [...] to included in the [facility] medical record. Labs are normal. Health habits [...] unspecified type - Hemagram; Future - Thyroid Barry; Future F/u 1 year or sooner prn [...] with speech recognition software or keyboard data acquisition technician techniques. Minor irregularities or keyboarding misprints [...] AND LATERAL ??09/03/2016 9:51 AM Clinical History/Comments: R07.14-Midtqusqoqo-KWK-10; CHEST PAIN, 65yo man with rib pain [...] AND LATERAL 09/03/2016 9:51 AM Clinical History/Comments: R07.74-Mjzkufnrkas-KAK-10; CHEST PAIN, 65yo man with rib pain [...] the findings. Ya Yee MD IMG DIAGNOSTIC IMAGING OR DERABLES Final Result * THYROID CASCADE (09/03/2016 9:20 EST) TSH 1.43 0.55 - 4.78 uIU/ml 09/03/2016 11:45 EST [facility] Comment: TSH cascade is not recommended for patients in which pituitary or hypothalamic disorders are suspected. Blood specimen (specimen) BLOOD SPECIMEN / Unknown 09/03/2016 9:20 EST 09/03/2016 10:09 EST us Ya Yee MD CHEMISTRY & BLOOD GAS ORD ERABLES Final Result [facility] [address] [place] [address] * HEMAGRAM (09/03/2016 9:20 EST) WBC 4.90 4.0 - 10.4 K/cmm 09/03/2016 10:38 [facility] RBC 4.90 4.36 - 5.78 M/cmm 09/03/2016 10:38 [facility] Hemoglobin 15.9 13.8 - 17.3 gm/dl 09/03/2016 10:38 [facility] HCT 44.8 39.5 - 50.2 % 09/03/2016 10:38 [facility] MCV 91 81 - 95 fl 09/03/2016 10:38 [facility] MCH 32.4 27.6 - 33.0 pg 09/03/2016 10:38 [facility] MCHC 35.5 32.8 - 36.4 gm/dl 09/03/2016 10:38 [facility] RDW-CV 12.4 11.8 - 14.1 % 09/03/2016 10:38 [facility] RDW-SD 41.1 36.5 - 45.9 fl 09/03/2016 10:38 [facility] PLT 279 141 - 377 K/cmm 09/03/2016 10:38 [facility] MPV 10.9 9.5 - 12.7 fl 09/03/2016 10:38 [facility] Blood specimen (specimen) BLOOD SPECIMEN / Unknown 09/03/2016 9:20 EST 09/03/2016 10:09 EST us Ya Yee MD HEMATOLOGY & PF4 ORDERABL ES Final Result [facility] [address] [place] [address] documented in this encounter Visit Diagnoses Diagnosis Rib pain- Primary Chest pain, unspecified Need for vaccination Need for prophylactic vaccination and inoculation against unspecified single disease Fatigue, unspecified type documented in this encounter Orders Immunization/Injection Count Last Ordered Date First Ordered Date PNEUMOCOCCAL CONJ VACC PCV13 IM 1 7 documented in this encounter Care Teams Fuel Management Handler Relationship Specialty Start Date End Date Ya Yee MD [address] [place] [phone] PCP - General 02/23/16 10/02/21 documented as of this encounter
--- OUTSIDE RECORDS SUMMARY | 2024-08-28 16:54 | XMS_ITS | Encounter Summary ---
Author Organization [facility] Address [address] [place] [address] Care Team Providers Care Flexible Shaft Winder Name Role Phone Ya Yee MD Primary Care Provider +1 [phone] Encounter Details Date Type Department Care Team (Late st Contact Info) Description 03/11/2018 Phlebotomy Only [facility] [address] [place] [address] Seater Assembler, Outpatient Acute left flank pain (Primary Dx) [...] indicated by urinalysis results. 03/11/2018 12:48 EDT [facility] Urine specimen (specimen) TOPOGRAPHY UNKNOWN / Unknown 03/11/2018 11:49 EDT 03/11/2018 12:38 EDT us Gilmer Angel MD MICROBIOLOGY - [facility] ORDERABLES Final Result [facility] [address] [place] [address] * UA, CHEMICAL AND SEDIMENT ANALYSIS (DIPSTICK AND MICROSCOPIC) (03/11/2018 11:49 EDT) Color, UA Colorless 03/11/2018 12:48 EDT [facility] Clarity, UA Clear 03/11/2018 12:48 EDT [facility] Glucose, UA Neg Neg 03/11/2018 12:48 T [facility] Bilirubin, UA Neg Neg 03/11/2018 12:48 EDT [facility] Ketones, UA Neg Neg 03/11/2018 12:48 EDT [facility] Refractometer SG,Urine 1.007 1.001 - 1.035 03/11/2018 12:48 EDT [facility] Blood, UA Neg Neg 03/11/2018 12:48 T [facility] pH, UA 6.5 4.6 - 8.0 03/11/2018 12:48 T [facility] Protein, UA Neg Neg 03/11/2018 12:48 [facility] Urobilinogen, UA Normal Normal E.U./dl 03/11/2018 12:48 [facility] Nitrite, UA Neg Neg 03/11/2018 12:48 [facility] Leuk Esterase Neg Neg 03/11/2018 12:48 T [facility] UA Method Used 03/11/2018 11:39 T [facility] Comment: Testing performed using [employer] [id number]-[id number]. Urine RBC Count Automated 0 to 2 0 to 2 /HPF 03/11/2018 12:48 T [facility] Urine WBC Count Automated 0 to 3 0 to 3 /HPF 03/11/2018 12:48 [facility] Urine Squamous Epithelial Cell Count, Automated None seen None seen /LPF 03/11/2018 12:48 [facility] Urine Hyaline Casts, Automated < or = 10 < or = 10 /LPF 03/11/2018 12:48 [facility] Urine Bacteria Count, Automated None seen None seen 03/11/2018 12:48 [facility] UA Comment Sediment results 03/11/2018 12:48 [facility] Comment: are unreliable on urines unrefrig >2hrs or refrig >8hrs. Urine specimen (specimen) URINE / Unknown 03/11/2018 11:49 EDT 03/11/2018 12:38 EDT us Gilmer Angel MD URINALYSIS ORDERABL ES Final Result [facility] [address] [place] [address] * COMPLETE BLOOD COUNT AND DIFFERENTIAL (03/11/2018 11:49 EDT) WBC 5.40 4.0 - 10.4 K/cmm 03/11/2018 12:51 [facility] RBC 4.80 4.36 - 5.78 M/cmm 03/11/2018 12:51 [facility] Hemoglobin 15.6 13.8 - 17.3 gm/dl 03/11/2018 12:51 [facility] HCT 44.2 39.5 - 50.2 % 03/11/2018 12:51 [facility] MCV 92 81 - 95 fl 03/11/2018 12:51 [facility] MCH 32.5 27.6 - 33.0 pg 03/11/2018 12:51 [facility] MCHC 35.3 32.8 - 36.4 gm/dl 03/11/2018 12:51 [facility] RDW-CV 12.6 <14.2 % 03/11/2018 12:51 [facility] RDW-SD 42.3 <46.0 fl 03/11/2018 12:51 [facility] PLT 248 141 - 377 K/cmm 03/11/2018 12:51 [facility] MPV 11.0 9.5 - 12.7 fl 03/11/2018 12:51 [facility] % Neutrophils 62.4 % 03/11/2018 12:51 [facility] % Lymphocytes 23.0 % 03/11/2018 12:51 [facility] % Monocytes 11.3 % 03/11/2018 12:51 [facility] % Eosinophils 2.4 % 03/11/2018 12:51 [facility] % Basophils 0.7 % 03/11/2018 12:51 [facility] % Immature Grans 0.2 % 03/11/2018 12:51 [facility] ABS Neutrophils 3.37 2.20 - 8.85 K/cmm 03/11/2018 12:51 [facility] ABS Lymphs 1.24 1.09 - 3.30 K/cmm 03/11/2018 12:51 [facility] ABS Monocytes 0.61 0.1 - 0.8 K/cmm 03/11/2018 12:51 EDT [facility] ABS Eosinophils 0.13 0.03 - 0.61 K/cm 03/11/2018 12:51 EDT [facility] ABS Basophils 0.04 0.01 - 0.11 K/formerly [facility] 03/11/2018 12:51 EDT [facility] ABS Immature Grans 0.01 0 - 0.06 K/formerly [facility] 03/11/2018 12:51 EDT [facility] Type of Diff: Automated 03/11/2018 12:51 EDT [facility] Blood specimen (specimen) BLOOD SPECIMEN / Unknown 03/11/2018 11:49 EDT 03/11/2018 12:42 EDT us Gilmer Angel MD PACKAGES & DNA PROB E ORDERABLES Final Result Performing Organization Address City/[facility]/ZIP Co de Phone Number [facility] [address] [place] [address] * C REACTIVE PROTEIN (03/11/2018 11:49 EDT) C Reactive Protein <7.0 <10.0 mg/L 03/11/2018 13:25 EDT [facility] Blood specimen (specimen) BLOOD SPECIMEN / Unknown 03/11/2018 11:49 EDT 03/11/2018 12:42 EDT us Gilmer Angel MD CHEMISTRY & BLOOD G ORDERABLES Final Result Performing Organization Address City/[facility]/ZIP Co de Phone Number [facility] [address] [place] [address] documented in this encounter Visit Diagnoses Diagnosis Acute left flank pain- Primary Abdominal pain, unspecified site documented in this encounter Care Teams Flexible Shaft Winder Relationship Specialty Start Date End Date Ya Yee MD [address] [place] [phone] PCP - General 02/23/16 10/02/21 documented as of this encounter
--- OUTSIDE RECORDS SUMMARY | 2024-08-28 16:54 | XMS_ITS | Encounter Summary ---
Author Organization [facility] Address [address] [place] [address] Care Team Providers Care Sled Maker Name Role Phone Ya Yee MD Primary Care Provider +1 -[phone] Encounter Details Date Type Department Care Team (Late st Contact Info) Description 09/03/2016 Phlebotomy Only [facility] [address] [place] [address] High School Tutor, Outpatient Fatigue, unspecified type (Primary Dx) Social [...] 08/27/2016 10:05 EST documented in this encounter Plan of [...] 0.55 - 4.78 uIU/ml 09/03/2016 11:45 EST [facility] Comment: TSH cascade is not recommended for patients in which pituitary or hypothalamic disorders are suspected. Blood specimen (specimen) BLOOD SPECIMEN / Unknown 09/03/2016 9:20 EST 09/03/2016 10:09 EST Ya Yee MD CHEMISTRY & BLOOD GAS ORD ERABLES Final Result Performing Organization Address City/State/[facility] Co de Phone Number [facility] [address] [place] [phone] * HEMAGRAM (09/03/2016 9:20 EST) WBC 4.90 4.0 - 10.4 K/cmm 09/03/2016 10:38 [facility] RBC 4.90 4.36 - 5.78 M/cmm 09/03/2016 10:38 [facility] Hemoglobin 15.9 13.8 - 17.3 gm/dl 09/03/2016 10:38 [facility] HCT 44.8 39.5 - 50.2 % 09/03/2016 10:38 [facility] MCV 91 81 - 95 fl 09/03/2016 10:38 [facility] MCH 32.4 27.6 - 33.0 pg 09/03/2016 10:38 [facility] MCHC 35.5 32.8 - 36.4 gm/dl 09/03/2016 10:38 [facility] RDW-CV 12.4 11.8 - 14.1 % 09/03/2016 10:38 [facility] RDW-SD 41.1 36.5 - 45.9 fl 09/03/2016 10:38 EST [facility] PLT 279 141 - 377 K/cmm 09/03/2016 10:38 EST [facility] MPV 10.9 9.5 - 12.7 fl 09/03/2016 10:38 EST [facility] Blood specimen (specimen) BLOOD SPECIMEN / Unknown 09/03/2016 9:20 EST 09/03/2016 10:09 EST Ya Yee MD HEMATOLOGY & PF4 ORDERABL ES Final Result [facility] [address] [place] [address] documented in this encounter Visit Diagnoses Diagnosis Fatigue, unspecified type- Primary documented in this encounter Care Teams Sled Maker Relationship Specialty Start Date End Date Ya Yee MD [address] [place] [phone] PCP - General 02/23/16 10/02/21 documented as of this encounter
--- OUTSIDE RECORDS SUMMARY | 2024-08-28 16:55 | XMS_ITS | Encounter Summary ---
Author Organization [facility] Address [address] [place] [address] Care Team Providers Care Respiratory Services Manager Name Role Phone Manuel Landrum MD Primary Care Provider +1 -[phone] Encounter Details Date Type Department Care Team (Latest Contact Info) Description 08/09/2015 13:36 EST - 08/09/2015 13:37 [facility] Hospital Encounter [address] [address] Manuel Landrum MD [address] [phone] Discharge Disposition: Home or Self Care Social [...] on filedocumented in this encounter Care Teams Respiratory Services Manager Relationship Specialty Start Date End Date Manuel Landrum MD [address] [phone] PCP - General 12/30/13 02/22/16 documented as of this encounter
--- OUTSIDE RECORDS SUMMARY | 2024-08-28 16:55 | XMS_ITS | Encounter Summary ---
Author Organization [facility] Address [address] [place] [address] Care Team Providers Care Brothel Keeper Name Role Phone Manuel Landrum MD Primary Care Provider +1 [phone] Encounter Details Date Type Department Care Team (Late st Contact Info) Description 06/08/2015 Results Only [facility] [phone] Manuel Landrum MD [address] [phone] Social History Tobacco Use Types Packs/Day Years [...] EDT) Color, UA Yellow 06/08/2015 16:57 EDT [facility] Clarity, UA Clear 06/08/2015 16:57 EDT [facility] Glucose, UA Neg Neg 06/08/2015 16:57 [facility] Bilirubin, UA Neg Neg 06/08/2015 16:57 [facility] Ketones, UA Neg Neg 06/08/2015 16:57 [facility] Specific [place], Urine 1.015 1.001 - 1.035 06/08/2015 16:57 [facility] Blood, UA Neg Neg 06/08/2015 16:57 [facility] pH, UA 6.5 4.6 - 8.0 06/08/2015 16:57 [facility] Protein, UA Neg Neg 06/08/2015 16:57 [facility] Urobilinogen, UA 0.2 0.2 - 1.0 E.U./dl 06/08/2015 16:57 [facility] Nitrite, UA Neg Neg 06/08/2015 16:57 [facility] Leuk Esterase Neg Neg 06/08/2015 16:57 [facility] WBC, UA None seen 0 - 5 /HPF 06/08/2015 16:57 [facility] RBC, UA None seen 0 - 5 /HPF 06/08/2015 16:57 [facility] Squam Epithel, UA None seen None seen /HPF 06/08/2015 16:57 [facility] Renal Epithel, UA None seen None seen /HPF 06/08/2015 16:57 [facility] Bacteria, UA None seen None seen /HPF 06/08/2015 16:57 [facility] Crystals, UA None seen /HPF 06/08/2015 16:57 [facility] Hyaline Casts, UA None seen /LPF 06/08/2015 16:57 [facility] UA Comment Microscopic results 06/08/2015 16:37 [facility] Comment: are unreliable on urines unrefrig >2hrs or refrig >8hrs. URINE / Unknown 06/08/2015 1 0:57 EDT 06/08/2015 16:37 EDT us Manuel Landrum MD URINALYSIS ORDERABLES Fin al Result [facility] [address] [place] [address] documented in this encounter Visit Diagnoses Not on filedocumented in this encounter Care Teams Brothel Keeper Relationship Specialty Start Date End Date Manuel Landrum MD [address] [address] PCP - General 12/30/13 02/22/16 documented as of this encounter
--- OUTSIDE RECORDS SUMMARY | 2024-08-28 16:55 | XMS_ITS | Encounter Summary ---
Author Organization [facility] Address [address] [place] [address] Care Team Providers Care Sleeve Tailor Name Role Phone Manuel Landrum MD Primary Care Provider +1 [phone] Encounter Details Date Type Department Care Team (Late st Contact Info) Description 12/07/2015 Orders Only Non [facility] Tiny Pur[place], [place] [address] [address] [place] [address] Elevated C-reactive protein (CRP) (Primary [...] (HCC-CMS) documented in this encounter Care Teams Sleeve Tailor Relationship Specialty Start Date End Date Manuel Landrum MD [address] [address] PCP - General 5/14/14 7/6/16 documented as of this encounter
--- OUTSIDE RECORDS SUMMARY | 2024-08-28 16:55 | XMS_ITS | Encounter Summary ---
Author Organization [facility] Address [address] [place] [address] Care Team Providers Care Condenser Cleaner Name Role Phone Manuel Landrum MD Primary Care Provider +1 [phone] Encounter Details Date Type Department Care Team (Latest Contact Info) Description 08/16/2015 18:45 EST - 08/16/2015 23:59 EST Hospital Encounter [facility] [place], [facility] [address] [place] [address] Manuel Landrum MD [address] [address] Discharge Disposition: Home or Self Care Social [...] on filedocumented in this encounter Care Teams Condenser Cleaner Relationship Specialty Start Date End Date Manuel Landrum MD [address] [phone] PCP - General 12/30/13 02/22/16 documented as of this encounter
--- OUTSIDE RECORDS SUMMARY | 2024-08-28 16:55 | XMS_ITS | Encounter Summary ---
Author Organization [facility] Address [address] [place] [address] Care Team Providers Care Brazer Electronic Name Role Phone Manuel Landrum MD Primary Care Provider +1 [phone] Encounter Details Date Type Department Care Team (Latest Contact Info) Description 08/10/2015 8:14 EST - 08/10/2015 23:59 EST Hospital Encounter [facility] [address] [place] [address] [place] Purdy [place] [address] [place] [address] Discharge Disposition: Home or Self [...] on filedocumented in this encounter Care Teams Brazer Electronic Relationship Specialty Start Date End Date Manuel Landrum MD [address] [address] PCP - General 12/30/13 02/22/16 documented as of this encounter
--- OUTSIDE RECORDS SUMMARY | 2024-08-28 16:55 | XMS_ITS | Encounter Summary ---
Author Organization [facility] Address [address] [place] [address] Care Team Providers Care Motor Rebuilder Name Role Phone Manuel Landrum MD Primary Care Provider +1 [phone] Encounter Details Date Type Department Care Team (Latest Contact Info) Description 06/08/2015 18:35 EDT - 06/08/2015 18:36 EDT Hospital Encounter [address] [address] Manuel Landrum MD [address] [address] Discharge Disposition: Home or Self Care Social [...] findings. Manuel Landrum MD IMG CT ORDERABLES Final R esult documented in this encounter Visit Diagnoses Not on filedocumented in this encounter Care Teams Motor Rebuilder Relationship Specialty Start Date End Date Manuel Landrum MD [address] [place] [address] PCP - General 12/30/13 02/22/16 documented as of this encounter
--- OUTSIDE RECORDS SUMMARY | 2024-08-28 16:55 | XMS_ITS | Encounter Summary ---
Author Organization [facility] Address [address] [place] [address] Care Team Providers Care Marketing Manager Name Role Phone Manuel Landrum MD Primary Care Provider [phone] [phone] Reason for Visit * Reason Comments Cerumen Impaction Encounter Details Date Type Department Care Team (Late st Contact Info) Description 12/30/2013 10:[address] [facility] ENT- [address] [phone] Chetna Noble MD 111 [facility], [address] [place] [address] Impacted cerumen (Primary Dx) Social [...] Notes * Chetna Noble MD - 12/30/2013 1148 EDT No problems since his last visit [...] documented as of this encounter Care Teams Marketing Manager Relationship Specialty Start Date End Date Manuel Landrum MD [address] [address] PCP - General 12/30/13 02/22/16 documented as of this encounter
--- OUTSIDE RECORDS SUMMARY | 2024-08-28 16:55 | XMS_ITS | Encounter Summary ---
Author Organization [facility] Address [address] [place] [address] Care Team Providers Care Assembler Dc Field Yoke Name Role Phone Manuel Landrum MD Primary Care Provider [phone] [phone] Reason for Visit * Reason Comments Cerumen Impaction Encounter Details Date Type Department Care Team (Late st Contact Info) Description 10/06/2014 10:30 EST Office Visit [facility]- [address] [address] Chetna Noble MD 111 [facility], [address] [place] [address] Impacted cerumen (Primary Dx) Discharge [...] Notes * Chetna Noble MD - 10/06/2014 1209 EST Doing well, last visit 2 mos [...] Primary documented in this encounter Care Teams Assembler Dc Field Yoke Relationship Specialty Start Date End Date Manuel Landrum MD [address] [address] PCP - General 12/30/13 02/22/16 documented as of this encounter
--- OUTSIDE RECORDS SUMMARY | 2024-08-28 16:55 | XMS_ITS | Encounter Summary ---
Author Organization [facility] Address [address] [place] [address] Care Team Providers Care Stewarding Supervisor Name Role Phone Manuel Landrum MD Primary Care Provider [phone] [phone] Reason for Visit * Reason Comments Cerumen Impaction Encounter Details Date Type Department Care Team (Late st Contact Info) Description 12/16/2014 10:45 EDT Office Visit [facility]- [address] [phone] Chetna Noble MD 111 [facility], [address] [place] [address] Impacted cerumen (Primary Dx) Discharge [...] Primary documented in this encounter Care Teams Stewarding Supervisor Relationship Specialty Start Date End Date Manuel Landrum MD [address] [place] [address] PCP - General 12/30/13 02/22/16 documented as of this encounter
--- OUTSIDE RECORDS SUMMARY | 2024-08-28 16:55 | XMS_ITS | Encounter Summary ---
Author Organization [facility] Address [address] [place] [address] Care Team Providers Care Flow Nurse Name Role Phone Manuel Landrum MD Primary Care Provider [phone] Ya Yee MD Primary Care Provider [phone] [phone] Reason for Visit * Reason Onset Date Comments Appointment Related 01/31/2016 Encounter Details Date Type Department Care Team (Late st Contact Info) Description 01/31/2016 Telephone [facility] - [address] [phone] Ya Yee MD [address] [place] [address] Appointment Related Social History Tobacco Use [...] 01/31/2016 0857 EDT External records received from [facility] forwarded to [facility] for extraction. documented in this encounter Plan of Treatment Not on file documented as of this encounter Visit Diagnoses Not on filedocumented in this encounter Care Teams Flow Nurse Relationship Specialty Start Date End Date Manuel Landrum MD [address] [place] [address] PCP - General 12/30/13 02/22/16 Ya Yee MD [address] [place] [address] PCP - General 02/23/16 10/02/21 documented as of this encounter
--- OUTSIDE RECORDS SUMMARY | 2024-08-28 16:55 | XMS_ITS | Encounter Summary ---
Author Organization [facility] Address [address] [place] [address] Care Team Providers Care Foreman Or Supervisor And Operator Name Role Phone Manuel Landrum MD Primary Care Provider [phone] [phone] Encounter Details Date Type Department Care Team (Late st Contact Info) Description 01/20/2014 Phlebotomy Only [facility] [place] [address] [place] [address] Excellence Specialist, Outpatient Social History Tobacco Use Types Packs/Day [...] on filedocumented in this encounter Care Teams Foreman Or Supervisor And Operator Relationship Specialty Start Date End Date Manuel Landrum MD [address] [address] PCP - General 12/30/13 02/22/16 documented as of this encounter
--- OUTSIDE RECORDS SUMMARY | 2024-08-28 16:55 | XMS_ITS | Encounter Summary ---
Author Organization [facility] Address [address] [place] [address] Care Team Providers Care Quiller Runner Name Role Phone Prem Landrum MD Primary Care Provider [phone] Encounter Details Date Type Department Care Team (Latest Contact Info) Description 04/16/2013 16:21 EDT - 04/16/2013 16:22 EDT Hospital Encounter [address] [address] Manuel Landrum MD [address] [address] Discharge Disposition: Home or Self Care Social [...] on filedocumented in this encounter Care Teams Quiller Runner Relationship Specialty Start Date End Date Prem Landrum MD [address] [address] PCP - General 04/18/11 12/29/13 documented as of this encounter
--- OUTSIDE RECORDS SUMMARY | 2024-08-28 16:55 | XMS_ITS | Encounter Summary ---
Author Organization [facility] Address [address] [place] [address] Care Team Providers Care Solar Energy Engineer Name Role Phone Prem Landrum MD Primary Care Provider [phone] Encounter Details Date Type Department Care Team (Late st Contact Info) Description 04/16/2013 Results Only [facility] - [facility] ([facility]) [address] [place], [place] [address] Manuel Landrum MD [address] [phone] Social History Tobacco Use Types Packs/Day Years [...] Name Priority Date/Time Associated Diagnosis Comments URINE [id number] NE RATIO (ACR) Routine 04/16/2013 11:41 EDT documented in this encounter Results * ALBUMIN, URINE (04/16/2013 11:41 EDT) Creatinine, Urn [place] 129.6 mg/dl [facility] Ur Albumin mg/dl 0.7 mg/dl [facility] Ur Alb ug/mg Crea 5.4 ug/mg Crea [facility] Comment: Normal: <30 ug/mg creat High: 30-300 ug/mg creat Very high and nephrotic: >300 ug/mg creat 04/16/2013 11:4 1 EDT 04/16/2013 15:12 EDT us Manuel Landrum MD CHEMISTRY & BLOOD GAS ORD ERABLES Final Result [facility] [address] [place] [address] documented in this encounter Visit Diagnoses Not on filedocumented in this encounter Care Teams Solar Energy Engineer Relationship Specialty Start Date End Date Prem Landrum MD [address] [address] PCP - General 04/18/11 12/29/13 documented as of this encounter
--- OUTSIDE RECORDS SUMMARY | 2024-08-28 16:55 | XMS_ITS | Encounter Summary ---
Author Organization [facility] Address [address] [place] [address] Care Team Providers Care Manager Security And Safety Name Role Phone Manuel Landrum MD Primary Care Provider [phone] Reason for Visit * Reason Comments Cerumen Impaction Encounter Details Date Type Department Care Team (Late st Contact Info) Description 03/16/2015 8:50 EDT Office Visit [address] [phone] Chetna Noble MD 111 [facility], [address] [place] [address] Impacted cerumen, bilateral [380.4] (Primary [...] Notes * Chetna Noble MD - 03/16/2015 0801 EDT Pt has had some ear itching. [...] Primary documented in this encounter Care Teams Manager Security And Safety Relationship Specialty Start Date End Date Manuel Landrum MD [address] [address] PCP - General 12/30/13 02/22/16 documented as of this encounter
--- OUTSIDE RECORDS SUMMARY | 2024-08-28 16:55 | XMS_ITS | Encounter Summary ---
Author Organization [facility] Address [address] [place] [address] Care Team Providers Care Visual Merchandising Coordinator Name Role Phone Prem Landrum MD Primary Care Provider + [phone] Reason for Visit * Reason Comments Cerumen Impaction Encounter Details Date Type Department Care Team (Late st Contact Info) Description 09/30/2013 10:45 EST Office Visit [facility] ENT- [address] [phone] Chetna Noble MD 111 [facility], [address] [place] [address] Impacted cerumen (Primary Dx) Social [...] Primary documented in this encounter Care Teams Visual Merchandising Coordinator Relationship Specialty Start Date End Date Prem Landrum MD [address] [address] PCP - General 04/18/11 12/29/13 documented as of this encounter
--- OUTSIDE RECORDS SUMMARY | 2024-08-28 16:55 | XMS_ITS | Encounter Summary ---
Author Organization [facility] Address [address] [place] [address] Care Team Providers Care Flight Engineer Manager Name Role Phone Manuel Landrum MD Primary Care Provider [phone] Encounter Details Date Type Department Care Team (Late st Contact Info) Description 01/31/2016 Abstract [facility] Adult Primary Care - [address] [address] Ya Yee MD [address] [place] [phone] Social History Tobacco Use Types Packs/Day Years [...] on filedocumented in this encounter Care Teams Flight Engineer Manager Relationship Specialty Start Date End Date Manuel Landrum MD [address] [phone] PCP - General 12/30/13 02/22/16 documented as of this encounter
--- OUTSIDE RECORDS SUMMARY | 2024-08-28 16:55 | XMS_ITS | Encounter Summary ---
Author Organization [facility] Address [address] [place] [address] Care Team Providers Care Locker Attendant Name Role Phone Manuel Landrum MD Primary Care Provider [phone] Encounter Details Date Type Department Care Team (Late st Contact Info) Description 08/10/2015 Phlebotomy Only [facility] [address] [place] [address] Arterial Embalmer, Outpatient Elevated C-reactive protein (CRP); Disorders of [...] Results * (ABNORMAL) HOMOCYSTEINE (08/10/2015 8:18 EST) [facility] Homocysteine 14.5(H) 4.5 - 12.4 umol/L 08/10/2015 10:39 EST [facility] Comment: Results may be [...] Grant Purdy ND CHEMISTRY & BLOOD GAS MEAGAN CHAPPELL Final Result [facility] [address] [place] [address] * HEMAGRAM AND DIFFERENTIAL (08/10/2015 8:18 EST) WBC 6.34 4.0 - 10.4 K/cmm 08/10/2015 8:59 [facility] RBC 5.19 4.36 - 5.78 M/cmm 08/10/2015 8:59 [facility] Hemoglobin 16.4 13.8 - 17.3 gm/dl 08/10/2015 8:59 [facility] HCT 48.1 39.5 - 50.2 % 08/10/2015 8:59 [facility] MCV 93 81 - 95 fl 08/10/2015 8:59 [facility] MCH 31.5 27.6 - 33.0 pg 08/10/2015 8:59 [facility] MCHC 34.0 32.8 - 36.4 gm/dl 08/10/2015 8:59 [facility] RDW-CV 12.8 11.8 - 14.1 % 08/10/2015 8:59 [facility] RDW-SD 42.0 36.5 - 45.9 fl 08/10/2015 8:59 [facility] PLT 258 141 - 320 K/cmm 08/10/2015 8:59 [facility] MPV 8.5 7.5 - 11.2 fl 08/10/2015 8:59 [facility] % Neutrophils 61.9 45.5 - 79.7 % 08/10/2015 8:59 [facility] % Lymphocytes 25.0 15.0 - 46.8 % 08/10/2015 8:59 [facility] % Monocytes 10.2 1.8 - 12.0 % 08/10/2015 8:59 [facility] % Eosinophils 2.2 0.6 - 6.9 % 08/10/2015 8:59 [facility] % Basophils 0.7 0.2 - 1.4 % 08/10/2015 8:59 [facility] ABS Neutrophils 3.93 2.20 - 8.85 K/cmm 08/10/2015 8:59 [facility] ABS Lymphs 1.59 1.09 - 3.30 K/cmm 08/10/2015 8:59 [facility] ABS Monocytes 0.65 0.1 - 0.8 K/cmm 08/10/2015 8:59 [facility] ABS Eosinophils 0.14 0.03 - 0.61 K/cmm 08/10/2015 8:59 [facility] ABS Basophils 0.04 0.01 - 0.11 K/cmm 08/10/2015 8:59 [facility] Type of Diff: Automated 08/10/2015 8:59 [facility] Blood specimen (specimen) BLOOD SPECIMEN / Unknown 08/10/2015 8:18 EST 08/10/2015 8:46 EST us Grant Purdy ND PACKAGES & DNA PROBE ORDER KOLE Final Result Performing Organization Address City/State/[facility] Co de Phone Number [facility] [address] [place] [address] * (ABNORMAL) VITAMIN D (25,OH) (08/10/2015 8:18 EST) 25OH Vitamin D Tot 27.2(L) 30 - 100 ng/ml 08/10/2015 12:44 [facility] Comment: Reference Range: Deficient = <10 ng/ml Insufficient = 10-30 ng/ml Sufficient = 30-100 ng/ml Toxic = >100 ng/ml Blood specimen (specimen) BLOOD SPECIMEN / Unknown 08/10/2015 8:18 EST 08/10/2015 8:46 EST Grant Purdy ND CHEMISTRY & BLOOD GAS ORDE RABLES Final Result Performing Organization Address City/[facility]/ZIP Co de Phone Number [facility] [address] [place] [address] * VITAMIN B12 (08/10/2015 8:18 EST) Pathologist [facility] Vitamin B-12 248 211 - 911 pg/ml 08/10/2015 10:22 EST [facility] Blood specimen (specimen) BLOOD SPECIMEN / Unknown 08/10/2015 8:18 EST 08/10/2015 8:46 EST Grant Purdy ND CHEMISTRY & BLOOD GAS ORDE RABLES Final Result Performing Organization Address [facility] Co de Phone Number [facility] [address] [place] [address] * C-REACTIVE PROTEIN HIGH SENSITIVITY (08/10/2015 8:18 EST) [facility] High Sensitivity CRP 3.0 mg/L 08/10/2015 14:38 EST [facility] Comment: Reference Range: <1.0 mg/L Low risk 1.0-3.0 mg/L Average risk >3.0 mg/L High risk >10.0 mg/L Acute inflammation Blood specimen (specimen) BLOOD SPECIMEN / Unknown 08/10/2015 8:18 EST 08/10/2015 8:46 EST Grant Purdy ND CHEMISTRY & BLOOD GAS ORDE RABLES Final Result Performing Organization Address [facility]/ZIP Co de Phone Number [facility] [address] [place] [address] * (ABNORMAL) FOLATE (08/10/2015 8:18 EST) [facility] Folate 19.8(H) 2.8 - 18.0 ng/ml 08/10/2015 10:22 EST [facility] Comment: Deficient: ??Less than 3.4 ng/mL Indeterminate: ??3.4-5.4 ng/mL Normal: ??Greater than 5.4 ng/mL Blood specimen (specimen) BLOOD SPECIMEN / Unknown 08/10/2015 8:18 EST 08/10/2015 8:46 EST us Grant Purdy ND CHEMISTRY & BLOOD GAS MEAGAN CHAPPELL Final Result [facility] [address] [place] [phone] documented in this encounter Visit Diagnoses Diagnosis Elevated C-reactive protein (CRP) Disorders of sulfur-bearing amino-acid metabolism, unspecified ([facility]) Malaise and fatigue Other malaise and fatigue Diverticulosis of large intestine without perforation or abscess without bleeding Diverticulosis of colon (without mention of hemorrhage) Vitamin D deficiency, unspecified documented in this encounter Care Teams Locker Attendant Relationship Specialty Start Date End Date Manuel Landrum MD [address] [address] PCP - General 12/30/13 02/22/16 documented as of this encounter
--- OUTSIDE RECORDS SUMMARY | 2024-08-28 16:55 | XMS_ITS | Encounter Summary ---
Author Organization [facility] Address [address] [place] [address] Care Team Providers Care Separator Inserter Name Role Phone Prem Landrum MD Primary Care Provider Encounter Details Date Type Department Care Team (Latest Contact Info) Description 11/11/2013 9:50 EDT - 11/11/2013 23:59 EDT Hospital Encounter [facility] [address] [place] [address] Manuel Landrum MD [address] [address] Discharge Disposition: Home or Self Care Social [...] this encounter Medications at Time of Discharge polyethylene glycol (GOLYTELY) 236-22.74-6.74 gram suspensionIndica tions:Special screening for malignant neoplasms, colon Follow instructions on 'colonoscopy preparation instructions' sheet. 1 Bottle 0 09/01/2013 4 documented as of this encounter Discharge Disposition Disposition Code Departure Means Destination Home or Self Jail documented in this encounter Plan of Treatment Not on file documented as of this encounter Visit Diagnoses Not on filedocumented in this encounter Care Teams Separator Inserter Relationship Specialty Start Date End Date Prem Landrum MD [address] [address] PCP - General 04/18/11 12/29/13 documented as of this encounter
--- OUTSIDE RECORDS SUMMARY | 2024-08-28 16:55 | XMS_ITS | Encounter Summary ---
Author Organization [facility] Address [address] [place] [address] Care Team Providers Care Clinical Associate Name Role Phone Ya Yee MD Primary Care Provider +1 [phone] Reason for Visit * Reason Comments Cerumen Impaction Encounter Details Date Type Department Care Team (Late st Contact Info) Description 06/28/2016 10:45 EST Office Visit [facility] [address] [place], [place] [id number] Chetna Noble MD [address] [place] [address], [address] [place] [address] Bilateral impacted cerumen (Primary Dx) [...] shopping? Answer Date of Assessment Author No 06/28/2016 10:51 EST documented as of this encounter Mental Status * Because of a physical, mental, or emotional condition, does this person have serious difficulty concentrating, remembering, or making decisions? Answer Entry Date Author No 06/28/2016 10:51 EST documented in this encounter Progress Notes [...] cerumen documented in this encounter Care Teams Clinical Associate Relationship Specialty Start Date End Date Ya Yee MD [address] [place] [phone] PCP - General 02/23/16 10/02/21 documented as of this encounter
--- OUTSIDE RECORDS SUMMARY | 2024-08-28 16:55 | XMS_ITS | Encounter Summary ---
Author Organization [facility] Address [address] [place] [address] Care Team Providers Care Athletic Training Internship Name Role Phone Prem Landrum MD Primary Care Provider Encounter Details Date Type Department Care Team (Latest Contact Info) Description 12/15/2013 10:23 EDT - 12/15/2013 23:59 EDT Hospital Encounter [facility] [address] [place] [address] Manuel Landrum MD [address] [address] Discharge Disposition: Auto Discharge Social History Tobacco [...] ??RUQ pain. *previous ABD u/s done at [facility]* . Technique: CT images of the abdomen [...] RUQ pain. *previous ABD u/s done at [facility]* . Technique: CT images of the abdomen [...] on filedocumented in this encounter Care Teams Athletic Training Internship Relationship Specialty Start Date End Date Prem Landrum MD [address] [address] PCP - General 04/18/11 12/29/13 documented as of this encounter
--- OUTSIDE RECORDS SUMMARY | 2024-08-28 16:55 | XMS_ITS | Encounter Summary ---
Author Organization [facility] Address [address] [place] [address] Care Team Providers Care Medical Scientific Liaison Name Role Phone Ya Yee MD Primary Care Provider +1 [phone] Encounter Details Date Type Department Care Team (Late st Contact Info) Description 08/21/2016 Phlebotomy Only [facility] [address] [place] [address] Supply And Distribution Manager, Outpatient Social History Tobacco Use Types Packs/Day [...] 06/28/2016 10:51 EST documented in this encounter Plan of [...] 5.0 3.5 - 5.0 mEq/L 08/21/2016 10:29 [facility] Sodium 144 136 - 145 mEq/L 08/21/2016 10:29 [facility] Chloride 103 96 - 110 mEq/L 08/21/2016 10:29 [facility] CO2 28 22 - 32 mEq/L 08/21/2016 10:29 [facility] Comment:Note new reference r megha 06/05/16 Total Alkaline Phosphatase 78 38 - 126 U/L 08/21/2016 10:29 [facility] Bilirubin, Total 0.8 <1.4 mg/dl 08/21/19 17 10:29 [facility] AST 27 15 - 46 U/L 08/21/2016 10:29 [facility] ALT 43 21 - 72 U/L 08/21/2016 10:29 [facility] Albumin 4.4 3.4 - 4.9 g/dl 08/21/2016 10:29 [facility] Total Protein 7.1 6.3 - 8.2 g/dl 08/21/2016 10:29 [facility] Creatinine 0.78 0.66 - 1.25 mg/dl 08/21/2016 10:29 [facility] GFR, Calculated 93 >60 ml/min/1.7 3m2 08/21/2016 10:29 [facility] Comment: eGFR calculated using CKD-EPI equation for non Americans. Multiply eGFR by 1.16 for Americans. BUN 15 10 - 26 mg/dl 08/21/2016 10:29 [facility] Calcium 9.4 8.5 - 10.5 mg/dl 08/21/2016 10:29 [facility] Calculated Calcium 9.1 8.5 - 10.5 mg/dl 08/21/2016 10:29 [facility] Comment: Note new formula for calculation in use 05/23/2016 Glucose, Serum 90 70 - 100 mg/dl 08/21/2016 10:29 [facility] Fasting? YES 08/21/2016 8:59 [facility] Blood specimen (specimen) BLOOD SPECIMEN / Unknown 08/21/2016 9:03 EST 08/21/2016 9:52 EST Ya Yee MD CHEMISTRY & BLOOD GAS ORD ERABLES Final Result [facility] [address] [place] [address] * LIPID PROFILE (INCLUDES CHOLESTEROL, TRIGLYCERIDES, HDL, LDL) (08/21/2016 9:03 EST) Cholesterol 221 mg/dl 08/21/2016 10:29 [facility] Comment: Desirable:<200 Borderline High:200-239 High:>zn=149 Triglycerides 96 mg/dl 08/21/2016 10:29 [facility] Comment: Normal:<150 Borderline High:150-199 High:200-499 Very High:>lk=001 HDL 54 mg/dl 08/21/2016 10:29 [facility] Comment: Low:<40 Normal:40-60 Desirable: >60 LDL, Calculated 148 mg/dl 7 10:29 [facility] Comment: Optimal:<100 Near Optimal:100-129 Borderline High:130-159 High:160-189 Very High:>ib=850 Chol/HDL Ratio 4.1 08/21/2016 10:29 [facility] Fasting? YES 08/21/2016 8:59 [facility] Non HDL Cholesterol 167 mg/dl 08/21/2016 10:29 [facility] Comment: Desirable:<130 Borderline:130-159 High: 160-189 Very High: >bb=849 Blood specimen (specimen) BLOOD SPECIMEN / Unknown 08/21/2016 9:03 EST 08/21/2016 9:52 EST Ya Yee MD CHEMISTRY & BLOOD GAS ORD ERABLES Final Result [facility] [address] [place] [address] documented in this encounter Visit Diagnoses Not on filedocumented in this encounter Care Teams Medical Scientific Liaison Relationship Specialty Start Date End Date Ya Yee MD [address] [place] [phone] PCP - General 02/23/16 10/02/21 documented as of this encounter
--- OUTSIDE RECORDS SUMMARY | 2024-08-28 16:55 | XMS_ITS | Encounter Summary ---
Author Organization [facility] Address [address] [place] [address] Care Team Providers Care Terminal System Operator Name Role Phone Ya Yee MD Primary Care Provider [phone] [phone] Reason for Visit * Reason Comments Follow-up Encounter Details Date Type Department Care Team (Late st Contact Info) Description 03/28/2016 8:50 EDT Office Visit [address] [phone] Chetna Noble MD [address] [place] [address], [address] [place] [address] Bilateral impacted cerumen (Primary Dx) [...] shopping? Answer Date of Assessment Author No 02/23/2016 10:05 EDT documented as of this encounter Mental Status * Because of a physical, mental, or emotional condition, does this person have serious difficulty concentrating, remembering, or making decisions? Answer Entry Date Author No 02/23/2016 10:05 EDT documented in this encounter Progress Notes [...] cerumen documented in this encounter Care Teams Terminal System Operator Relationship Specialty Start Date End Date Ya Yee MD [address] [place] [phone] PCP - General 02/23/16 10/02/21 documented as of this encounter
--- OUTSIDE RECORDS SUMMARY | 2024-08-28 16:55 | XMS_ITS | Encounter Summary ---
Author Organization [facility] Address [address] [place] [address] Care Team Providers Care Returning Officer Name Role Phone Manuel Landrum MD Primary Care Provider [phone] [phone] Reason for Visit * Reason Comments Cerumen Impaction Encounter Details Date Type Department Care Team (Late st Contact Info) Description 08/03/2014 10:30 EST Office Visit [facility] ENT- [address] [address] Chetna Noble MD [address] [facility], [address] [place] [address] Impacted cerumen (Primary Dx) Social [...] Primary documented in this encounter Care Teams Returning Officer Relationship Specialty Start Date End Date Manuel Landrum MD [address] [place] [address] PCP - General 12/30/13 02/22/16 documented as of this encounter
--- OUTSIDE RECORDS SUMMARY | 2024-08-28 16:55 | XMS_ITS | Encounter Summary ---
Author Organization [facility] Address [address] [place] [address] Care Team Providers Care Printed Products Assembler Name Role Phone Prem Landrum MD Primary Care Provider + [phone] Encounter Details Date Type Department Care Team (Late st Contact Info) Description 09/25/2013 Orders Only [facility] [place] [facility] Gastroenterology - [address] [address] Prem Hearn MD [address] [place] [address], [address] 5 [place] [address] Social History Tobacco Use Types [...] this encounter Results * COLONOSCOPY (09/16/2013) Colonoscopy [facility] Comment:colo f/u in 5 years Colonoscopy, External [facility] Anatomical Region Laterality Modality Endoscopy 09/16/2013 us Historical Provider GI PROCEDURE ORDERABLES F inal Result documented in this encounter Visit Diagnoses Not on filedocumented in this encounter Care Teams Printed Products Assembler Relationship Specialty Start Date End Date Prem Landrum MD [address] [phone] PCP - General 04/18/11 12/29/13 documented as of this encounter
--- OUTSIDE RECORDS SUMMARY | 2024-08-28 16:55 | XMS_ITS | Encounter Summary ---
Author Organization [facility] Address [address] [place] [address] Care Team Providers Care Gas Manager Name Role Phone Prem Landrum MD Primary Care Provider Encounter Details Date Type Department Care Team (Latest Contact Info) Description 11/18/2013 10:40 EDT - 11/18/2013 10:41 EDT Hospital Encounter [address] [address] Manuel Landrum MD [address] [address] Discharge Disposition: Home or Self Care Social [...] with the findings. Manuel Landrum MD IMG ORDERABLES Final R esult documented in this encounter Visit Diagnoses Not on filedocumented in this encounter Care Teams Gas Manager Relationship Specialty Start Date End Date Prem Landrum MD [address] [phone] PCP - General 04/18/11 12/29/13 documented as of this encounter
--- OUTSIDE RECORDS SUMMARY | 2024-08-28 16:55 | XMS_ITS | Encounter Summary ---
Author Organization [facility] Address [address] [place] [address] Care Team Providers Care Financial Reporting Manager Name Role Phone Prem Landrum MD Primary Care Provider Encounter Details Date Type Department Care Team (Latest Contact Info) Description 12/24/2013 15:32 EDT - 12/24/2013 23:59 EDT Hospital Encounter [facility] [address] [place] [address] Manuel Landrum MD [address] [address] Discharge Disposition: Home or Self Care Social [...] Code Departure Means Destination Home or Self Skilled Nursing documented in this encounter Plan of Treatment Not on file documented as of this encounter Visit Diagnoses Not on filedocumented in this encounter Care Teams Financial Reporting Manager Relationship Specialty Start Date End Date Prem Landrum MD [address] [phone] PCP - General 04/18/11 12/29/13 documented as of this encounter
--- OUTSIDE RECORDS SUMMARY | 2024-08-28 16:55 | XMS_ITS | Encounter Summary ---
Author Organization [facility] Address [address] [place] [address] Care Team Providers Care Yard Laborer Name Role Phone Prem Landrum MD Primary Care Provider + [phone] Encounter Details Date Type Department Care Team (Late st Contact Info) Description 09/01/2013 Orders Only [facility] Gastroenterology - [address] [phone] Prem Hearn MD [address] [place] [address], [address] [place] [address] Special screening for malignant neoplasms, [...] of this encounter Ordered Prescriptions Prescription Sig Dispense Quantity Refills Last Filled Start Date End Date polyethylene glycol (GOLYTELY) 236-22.74-6.74 gram suspensionIndicat ions:Special screening for malignant neoplasms, colon Follow instructions on 'colonoscopy preparation instructions' sheet. 1 Bottle 0 09/01/2013 4 documented in this encounter Plan of Treatment Not on file documented as of this encounter Visit Diagnoses Diagnosis Special screening for malignant neoplasms, colon- Primary documented in this encounter Care Teams Yard Laborer Relationship Specialty Start Date End Date Prem Landrum MD [address] [phone] PCP - General 04/18/11 12/29/13 documented as of this encounter
--- OUTSIDE RECORDS SUMMARY | 2024-08-28 16:55 | XMS_ITS | Encounter Summary ---
Author Organization [facility] Address [address] [place] [address] Care Team Providers Care Airfreight Operations Agent Name Role Phone Prem Landrum MD Primary Care Provider Encounter Details Date Type Department Care Team (Latest Contact Info) Description 11/11/2013 9:50 EDT - 11/11/2013 23:59 EDT Hospital Encounter [facility] [place] [address] [place] [address] Manuel Landrum MD [address] [address] Discharge Disposition: Home or Self Care Social [...] on filedocumented in this encounter Care Teams Airfreight Operations Agent Relationship Specialty Start Date End Date Prem Landrum MD [address] [phone] PCP - General 04/18/11 12/29/13 documented as of this encounter
--- OUTSIDE RECORDS SUMMARY | 2024-08-28 16:55 | XMS_ITS | Encounter Summary ---
Author Organization [facility] Address [address] [place] [address] Care Team Providers Care Sugar Mill Worker Name Role Phone Ya Yee MD Primary Care Provider [phone] Encounter Details Date Type Department Care Team (Late st Contact Info) Description 08/21/2016 8:55 EST - 08/21/2016 23:59 EST Hospital Encounter [facility] [address] [place] [address] Ya Yee MD [address] [place] [phone] Discharge Disposition: Auto Discharge Social History [...] 06/28/2016 10:51 EST documented in this encounter Discharge Diagnoses Diagnosis I10 Essential [...] on filedocumented in this encounter Care Teams Sugar Mill Worker Relationship Specialty Start Date End Date Ya Yee MD [address] [place] [phone] PCP - General 02/23/16 10/02/21 documented as of this encounter
--- OUTSIDE RECORDS SUMMARY | 2024-08-28 16:55 | XMS_ITS | Encounter Summary ---
Author Organization [facility] Address [address] [place] [address] Care Team Providers Care Rubber Stamp Maker Name Role Phone Prem Landrum MD Primary Care Provider + [phone] Reason for Visit * Reason Comments Cerumen Impaction Encounter Details Date Type Department Care Team (Late st Contact Info) Description 02/03/2013 8:15 EDT Office Visit [facility] [place]- [address] [address] Chetna Noble MD 111 [facility], [address] [place] [address] Impacted cerumen (Primary Dx) Social [...] Notes * Chetna Noble MD - 02/03/2013 0860 EDT Pt here for 3 mo visit. [...] Primary documented in this encounter Care Teams Rubber Stamp Maker Relationship Specialty Start Date End Date Prem Landrum MD [address] [phone] PCP - General 04/18/11 12/29/13 documented as of this encounter
--- OUTSIDE RECORDS SUMMARY | 2024-08-28 16:55 | XMS_ITS | Encounter Summary ---
Author Organization [facility] Address [address] [place] [address] Care Team Providers Care Plastic Process Technician Name Role Phone Ya Yee MD Primary Care Provider +1 [phone] Encounter Details Date Type Department Care Team (Latest Contact Info) Description 07/05/2016 9:28 EST - 07/05/2016 23:59 EST Hospital Encounter [facility] [address] [place] [address] [place], [place] [address] [facility] [address] [place] [address] Unknown, Provider, WAITING, TO BE [...] documented in this encounter Discharge Diagnoses Diagnosis Z01.89 Encounter [...] with speech recognition software or keyboard database modeler techniques. Minor irregularities or keyboarding misprints may [...] with speech recognition software or keyboard database modeler techniques. Minor irregularities or keyboarding misprints may be present. us To Be Added Waiting MD [facility] OR DERABLES Edited documented in this encounter Visit Diagnoses Not on filedocumented in this encounter Care Teams Plastic Process Technician Relationship Specialty Start Date End Date Ya Yee MD [address] [place] [phone] PCP - General 02/23/16 10/02/21 documented as of this encounter
--- OUTSIDE RECORDS SUMMARY | 2024-08-28 16:55 | XMS_ITS | Encounter Summary ---
Author Organization 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 He is and lives with his . Current exercise: bicycling. Current diet: healthy diet in general. Stress concerns are: none. Functional or impairment concerns are: none. His home environment is safe. His activities of daily living are normal. History of present Illness (HPI): Mr. Ramirez presents to [facility]. He is a former patient of Dr. Landrum. He is generally healthy and has no health concerns today. He is functionally independent, he sleeps well, his mood is good. He exercises regularly though not at the intensity that he used to. HTN: Patient has history of borderline BP. Has a cuff at home but it does not seem reliable. Reviewing records from [facility] it appears his in office readings have [...] Advance Directive status: not on file in FA. The patient is encouraged to complete/update and/or [...] HLD and HTN. Labs prior (ordered) Today's [id number] visit time was 60 minutes with 45 [...] prepared with speech recognition software or keyboard clinical data management manager techniques. Minor irregularities or keyboarding misprints may be present documented in this encounter Plan of Treatment Not on file documented as of this encounter Results * COMPREHENSIVE METABOLIC PANEL (CMP) (08/21/2016 9:03 EST) Potassium 5.0 3.5 - 5.0 mEq/L 08/21/2016 10:29 EST [facility] Sodium 144 136 - 145 mEq/L 08/21/2016 10:29 EST [facility] Chloride 103 96 - 110 mEq/L 08/21/2016 10:29 [facility] CO2 28 22 - 32 mEq/L 08/21/2016 10:29 [facility] Comment:Note new reference [facility] [place] 06/05/16 Total Alkaline Phosphatase 78 38 - 126 U/L 08/21/2016 10:29 [facility] Bilirubin, Total 0.8 <1.4 mg/dl 08/21/19 17 10:29 [facility] AST 27 15 - 46 U/L 08/21/2016 10:29 [facility] ALT 43 21 - 72 U/L 08/21/2016 10:29 [facility] Albumin 4.4 3.4 - 4.9 g/dl 08/21/2016 10:29 [facility] Total Protein 7.1 6.3 - 8.2 g/dl 08/21/2016 10:29 [facility] Creatinine 0.78 0.66 - 1.25 mg/dl 08/21/2016 10:29 [facility] GFR, Calculated 93 >60 ml/min/1.7 3m2 08/21/2016 10:29 [facility] Comment: eGFR calculated using CKD-EPI equation for non Americans. Multiply eGFR by 1.16 for Americans. BUN 15 10 - 26 mg/dl 08/21/2016 10:29 [facility] Calcium 9.4 8.5 - 10.5 mg/dl 08/21/2016 10:29 [facility] Calculated Calcium 9.1 8.5 - 10.5 mg/dl 08/21/2016 10:29 [facility] Comment: Note new formula for calculation in use 05/23/2016 Glucose, Serum 90 70 - 100 mg/dl 08/21/2016 10:29 [facility] Fasting? YES 08/21/2016 8:59 [facility] Blood specimen (specimen) BLOOD SPECIMEN / Unknown 08/21/2016 9:03 EST 08/21/2016 9:52 EST Ya Yee MD CHEMISTRY & BLOOD GAS ORD ERABLES Final Result [facility] [address] [place] [address] * LIPID PROFILE (INCLUDES CHOLESTEROL, TRIGLYCERIDES, HDL, LDL) (08/21/2016 9:03 EST) Cholesterol 221 mg/dl 08/21/2016 10:29 [facility] Comment: Desirable:<200 Borderline High:200-239 High:>gc=004 Triglycerides 96 mg/dl 08/21/2016 10:29 [facility] Comment: Normal:<150 Borderline High:150-199 High:200-499 Very High:>uj=363 HDL 54 mg/dl 08/21/2016 10:29 [facility] Comment: Low:<40 Normal:40-60 Desirable: >60 LDL, Calculated 148 mg/dl 7 10:29 [facility] Comment: Optimal:<100 Near Optimal:100-129 Borderline High:130-159 High:160-189 Very High:>xg=714 Chol/HDL Ratio 4.1 08/21/2016 10:29 [facility] Fasting? YES 08/21/2016 8:59 [facility] Non HDL Cholesterol 167 mg/dl 08/21/2016 10:29 [facility] Comment: Desirable:<130 Borderline:130-159 High: 160-189 Very High: >is=068 Blood specimen (specimen) BLOOD SPECIMEN / Unknown 08/21/2016 9:03 EST 08/21/2016 9:52 EST Ya Yee MD CHEMISTRY & BLOOD GAS ORD ERABLES Final Result [facility] [address] [place] [address] documented in this encounter Visit Diagnoses Diagnosis Hyperlipidemia, unspecified hyperlipidemia type- Primary Essential hypertension with goal blood pressure less than 140/90 documented in this encounter Care Teams Sales Support Coordinator Relationship Specialty Start Date End Date Ya Yee MD [address] [place] [phone] PCP - General 02/23/16 10/02/21 documented as of this encounter
--- OUTSIDE RECORDS SUMMARY | 2024-08-28 16:55 | XMS_ITS | Encounter Summary ---
Author Organization [facility] Address [address] [place] [address] Care Team Providers Care Comb Winder Name Role Phone Rosa M Israel MD Primary Care Provider Encounter Details Date Type Department Care Team (Late st Contact Info) Description 09/16/2013 9:09 EST - 09/16/2013 11:23 EST Hospital Encounter [facility] Endoscopy Outpatient [address] [place] [address] Rosa M Hearn MD 111 [facility], [facility] [address] [place] [address] Discharge Disposition: Home or Self [...] & Physical Date: 09/16/2013 Time: 10:09 Location: [address] Planned Procedure: Colonoscopy Chief Complaint/Indications for [...] documented in this encounter Procedure Notes * STAPLER COIL UNIT, SCAN 2 - 09/17/2013 0038 ESTAssociated Order(s): [...] and recommendations following the study by the bellstand attendant. The patient will be notified of her [...] and recommendations following the study by the bellstand attendant. The patient will be notified of her breast imaging results via a lay letter from Radiology. Radiology will contact the patient directly regarding any findings which require additional imaging (Category 0) at this time. I have personally reviewed the images and the above interpretation and agree with the findings. us Manuel Israel MD [facility] US ORDERABLES Final R esult * MARGARITA DX BILATERAL EMERGENCY 2 BREAST [...] and recommendations following the study by the bellstand attendant. The patient will be notified of her [...] and recommendations following the study by the bellstand attendant. The patient will be notified of her breast imaging results via a lay letter from Radiology. Radiology will contact the patient directly regarding any findings which require additional imaging (Category 0) at this time. I have personally reviewed the images and the above interpretation and agree with the findings. Manuel Israel MD [facility] MAMMOGRAPHY ORDERABLE S Final Result * PROCEDURE REPORTS - SCANNED (09/17/2013 0:38 EST) 09/17/2013 0:38 EST Narrative 09/17/2013 2:14 EST Procedure Note STAPLER COIL UNIT, SCAN 2 - 09/17/2013 0:38 EST us Scan 2 Segment Assembler PROCEDURE/MINOR SURGICAL OR DERABLES Final Result * SURGICAL PATHOLOGY (09/16/2013 11:13 EST) Pathology Report: SURGICAL PATHOLOGY REPORT Reports generated via electronic interface contain original data; however they are lacking the format of the original report. Caution should be taken when reading/interpreti ng unformatted reports. Name: ? DEMARAIS, LUIS J ? Accession #: ? [id number] ? : ? 1950 (Age: 62) ??M [...] 09/16/2013 12:30 PM End of Report [facility] 09/16/2013 11:1 3 EST 09/16/2013 11:13 EST us Rosa M Hearn MD PATHOLOGY ORDERABLES Final Result [facility] [address] [place] [address] documented in this encounter Visit Diagnoses Not [...] red Date NOTIFY PPS OF DISCHARGE COMPLETE 09/16/19 14 Discharge Count Last Ordered Date First Orde red Date DISCHARGE PATIENT 09/16/2013 documented in this encounter Care Teams Comb Winder Relationship Specialty Start Date End Date Rosa M Israel MD [address] [address] PCP - General 04/18/11 12/29/13 documented as of this encounter
--- OUTSIDE RECORDS SUMMARY | 2024-08-28 16:55 | XMS_ITS | Encounter Summary ---
Author Organization [facility] Address [address] [place] [address] Care Team Providers Care Procurement Services Manager Name Role Phone Manuel Landrum MD Primary Care Provider [phone] [phone] Reason for Visit * Reason Comments Cerumen Impaction Otalgia Encounter Details Date Type Department Care Team (Late st Contact Info) Description 06/15/2015 10:45 EDT Office Visit [facility] ENT- [address] [address] Chetna Noble MD 111 [facility], Level [address] [place] [address] Bilateral impacted cerumen [H61.23] (Primary [...] cerumen documented in this encounter Care Teams Procurement Services Manager Relationship Specialty Start Date End Date Manuel Landrum MD [address] [address] PCP - General 12/30/13 02/22/16 documented as of this encounter
--- OUTSIDE RECORDS SUMMARY | 2024-08-28 16:55 | XMS_ITS | Encounter Summary ---
Author Organization [facility] Address [address] [place] [address] Care Team Providers Care Electromagnet Crane Operator Name Role Phone Manuel Landrum MD Primary Care Provider [phone] Reason for Visit * Reason Comments Cerumen Impaction Encounter Details Date Type Department Care Team (Late st Contact Info) Description 12/28/2015 8:50 EDT Office Visit [facility]- [address] [phone] Chetna Noble MD 111 [facility], [address] [place] [address] Bilateral impacted cerumen [H61.23] (Primary [...] Notes * Chetna Noble MD - 12/28/2015 0999 EDT No problems since his last visit. [...] cerumen documented in this encounter Care Teams Electromagnet Crane Operator Relationship Specialty Start Date End Date Manuel Landrum MD [address] [address] PCP - General 12/30/13 02/22/16 documented as of this encounter
--- OUTSIDE RECORDS SUMMARY | 2024-08-28 16:55 | XMS_ITS | Encounter Summary ---
Author Organization [facility] Address [address] [place] [address] Care Team Providers Care Combination Machine Tender Name Role Phone Manuel Landrum MD Primary Care Provider [phone] Reason for Visit * Reason Comments Cerumen Impaction Encounter Details Date Type Department Care Team (Late st Contact Info) Description 09/14/2015 10:45 EST Office Visit [facility]- [address] [phone] Chetna Noble MD 111 [facility], Level [address] [place] [address] Bilateral impacted cerumen [H61.23] (Primary [...] Notes * Chetna Noble MD - 09/14/2015 1056 EST No problems since his last visit [...] cerumen documented in this encounter Care Teams Combination Machine Tender Relationship Specialty Start Date End Date Manuel Landrum MD [address] [address] PCP - General 12/30/13 02/22/16 documented as of this encounter
--- OUTSIDE RECORDS SUMMARY | 2024-08-28 16:55 | XMS_ITS | Encounter Summary ---
Author Organization [facility] Address [address] [place] [address] Care Team Providers Care Remote Medical Coder Name Role Phone Manuel Landrum MD Primary Care Provider [phone] [phone] Encounter Details Date Type Department Care Team (Late st Contact Info) Description 08/09/2015 Results Only [facility]- [facility] [phone] Manuel Landrum MD [address] [phone] Social History Tobacco Use Types Packs/Day Years [...] 0 - 5 /HPF 08/09/2015 18:[address] [facility] RBC, UA less than 1 0 - 5 /HPF 08/09/2015 18:[address] [facility] Squam Epithel, UA None seen None seen /HPF 08/09/2015 18:01 [facility] Renal Epithel, UA None seen None seen /HPF 08/09/2015 18:01 [facility] Bacteria, UA None seen None seen /HPF 08/09/2015 18:01 [facility] Crystals, UA None seen /HPF 08/09/2015 18:01 [facility] Hyaline Casts, UA None seen /LPF 08/09/2015 18:01 [facility] UA Comment Microscopic results 08/09/2015 17:40 [facility] Comment: are unreliable on urines unrefrig >2hrs or refrig >8hrs. URINE / Unknown 08/09/2015 1 4:00 EST 08/09/2015 17:40 EST us Manuel Landrum MD URINALYSIS ORDERABLES Fin al Result Performing Organization Address City/State/[facility] Co de Phone Number [facility] [address] [place] [address] documented in this encounter Visit Diagnoses Not on filedocumented in this encounter Care Teams Remote Medical Coder Relationship Specialty Start Date End Date Manuel Landrum MD [address] [id number] PCP - General 12/30/13 02/22/16 documented as of this encounter
--- OUTSIDE RECORDS SUMMARY | 2024-08-28 16:55 | XMS_ITS | Encounter Summary ---
Author Organization [facility] Address [address] [place] [address] Care Team Providers Care Rn Obgyn Name Role Phone Prem Landrum MD Primary Care Provider + [phone] Reason for Visit * Reason Comments Cerumen Impaction Encounter Details Date Type Department Care Team (Late st Contact Info) Description 06/26/2013 10:30 EST Office Visit [facility]- [address] [phone] Chetna Noble MD 111 [facility], [address] [place] [address] Impacted cerumen (Primary Dx) [...] Notes * Chetna Noble MD - 06/26/2013 1055 EST Pt here for 3 mo f/u. [...] Primary documented in this encounter Care Teams Rn Obgyn Relationship Specialty Start Date End Date Prem Landrum MD [address] [address] PCP - General 04/18/11 12/29/13 documented as of this encounter
--- OUTSIDE RECORDS SUMMARY | 2024-08-28 16:55 | XMS_ITS | Encounter Summary ---
Author Organization [facility] Address [address] [place] [address] Care Team Providers Care Driver Messenger Name Role Phone Manuel Landrum MD Primary Care Provider [phone] Reason for Visit * Reason Comments Cerumen Impaction Encounter Details Date Type Department Care Team (Late st Contact Info) Description 03/31/2014 10:30 EDT Office Visit [facility]- [address] [phone] Chetna Noble MD 111 [facility], Level [address] [place] [address] Impacted cerumen (Primary Dx) Social [...] Primary documented in this encounter Care Teams Driver Messenger Relationship Specialty Start Date End Date Manuel Landrum MD [address] [address] PCP - General 12/30/13 02/22/16 documented as of this encounter
--- OUTSIDE RECORDS SUMMARY | 2024-08-28 16:55 | XMS_ITS | Encounter Summary ---
Author Organization [facility] Address [address] [place] [address] Care Team Providers Care Pals Nurse Name Role Phone Manuel Landrum MD Primary Care Provider [phone] [phone] Encounter Details Date Type Department Care Team (Late st Contact Info) Description 01/28/2015 Orders Only Non [facility] Grant Purdy, JUNIOR [address] [place] [address] Elevated C-reactive protein (CRP) (Primary [...] deficiency documented in this encounter Care Teams Pals Nurse Relationship Specialty Start Date End Date Manuel Landrum MD [address] [address] PCP - General 12/30/13 02/22/16 documented as of this encounter
--- OUTSIDE RECORDS SUMMARY | 2024-08-28 16:55 | XMS_ITS | Encounter Summary ---
Author Organization [facility] Address [address] [place] [address] Care Team Providers Care Machine Heel Seat Fitter Name Role Phone Manuel Landrum MD Primary Care Provider [phone] Encounter Details Date Type Department Care Team (Late st Contact Info) Description 08/08/2015 Orders Only Non [facility] Anc[facility] Services Grant Purdy, JUNIOR [address] [place] [address] Elevated C-reactive protein (CRP) (Primary [...] 4.5 - 12.4 umol/L 08/10/2015 10:39 EST [facility] Comment: Results may be falsely [...] & BLOOD GAS MEAGAN CHAPPELL Final Result [facility] [address] [place] [address] * HEMAGRAM AND DIFFERENTIAL (08/10/2015 8:18 EST) WBC 6.34 4.0 - 10.4 K/cmm 08/10/2015 8:59 [facility] RBC 5.19 4.36 - 5.78 M/cmm 08/10/2015 8:59 [facility] Hemoglobin 16.4 13.8 - 17.3 gm/dl 08/10/2015 8:59 [facility] HCT 48.1 39.5 - 50.2 % 08/10/2015 8:59 [facility] MCV 93 81 - 95 fl 08/10/2015 8:59 [facility] MCH 31.5 27.6 - 33.0 pg 08/10/2015 8:59 [facility] MCHC 34.0 32.8 - 36.4 gm/dl 08/10/2015 8:59 [facility] RDW-CV 12.8 11.8 - 14.1 % 08/10/2015 8:59 [facility] RDW-SD 42.0 36.5 - 45.9 fl 08/10/2015 8:59 [facility] PLT 258 141 - 320 K/cmm 08/10/2015 8:59 [facility] MPV 8.5 7.5 - 11.2 fl 08/10/2015 8:59 [facility] % Neutrophils 61.9 45.5 - 79.7 % 08/10/2015 8:59 [facility] % Lymphocytes 25.0 15.0 - 46.8 % 08/10/2015 8:59 [facility] % Monocytes 10.2 1.8 - 12.0 % 08/10/2015 8:59 [facility] % Eosinophils 2.2 0.6 - 6.9 % 08/10/2015 8:59 [facility] % Basophils 0.7 0.2 - 1.4 % 08/10/2015 8:59 [facility] ABS Neutrophils 3.93 2.20 - 8.85 K/cmm 08/10/2015 8:59 [facility] ABS Lymphs 1.59 1.09 - 3.30 K/cmm 08/10/2015 8:59 [facility] ABS Monocytes 0.65 0.1 - 0.8 K/cmm 08/10/2015 8:59 [facility] ABS Eosinophils 0.14 0.03 - 0.61 K/cmm 08/10/2015 8:59 [facility] ABS Basophils 0.04 0.01 - 0.11 K/cmm 08/10/2015 8:59 [facility] Type of Diff: Automated 08/10/2015 8:59 [facility] Blood specimen (specimen) BLOOD SPECIMEN / Unknown 08/10/2015 8:18 EST 08/10/2015 8:46 EST us Grant Purdy ND PACKAGES & DNA PROBE ORDER KOLE Final Result [facility] [address] [place] [address] * (ABNORMAL) VITAMIN D (25,OH) (08/10/2015 8:18 EST) 25OH Vitamin D Tot 27.2(L) 30 - 100 ng/ml 08/10/2015 12:44 EST [facility] Comment: Reference Range: Deficient = <10 ng/ml Insufficient = 10-30 ng/ml Sufficient = 30-100 ng/ml Toxic = >100 ng/ml Blood specimen (specimen) BLOOD SPECIMEN / Unknown 08/10/2015 8:18 EST 08/10/2015 8:46 EST Grant Purdy ND CHEMISTRY & BLOOD GAS ORDE RABLES Final Result Performing Organization Address [facility]/ZIP Co de Phone Number [facility] [address] [place] [address] * VITAMIN B12 (08/10/2015 8:18 EST) Pathologist [facility] Vitamin B-12 248 211 - 911 pg/ml 08/10/2015 10:22 EST [facility] Blood specimen (specimen) BLOOD SPECIMEN / Unknown 08/10/2015 8:18 EST 08/10/2015 8:46 EST Grant Purdy ND CHEMISTRY & BLOOD GAS ORDE RABLES Final Result Performing Organization Address [facility] Co de Phone Number [facility] [address] [place] [address] * C-REACTIVE PROTEIN HIGH SENSITIVITY (08/10/2015 8:18 EST) [facility] High Sensitivity CRP 3.0 mg/L 08/10/2015 14:38 EST [facility] Comment: Reference Range: <1.0 mg/L Low risk 1.0-3.0 mg/L Average risk >3.0 mg/L High risk >10.0 mg/L Acute inflammation Blood specimen (specimen) BLOOD SPECIMEN / Unknown 08/10/2015 8:18 EST 08/10/2015 8:46 EST Grant Purdy ND CHEMISTRY & BLOOD GAS ORDE RABLES Final Result Performing Organization Address City/[facility]/ZIP Co de Phone Number [facility] [address] [place] [address] * (ABNORMAL) FOLATE (08/10/2015 8:18 EST) Pathologist [facility] Folate 19.8(H) 2.8 - 18.0 ng/ml 08/10/2015 10:22 EST [facility] Comment: Deficient: ??Less than 3.4 ng/mL Indeterminate: ??3.4-5.4 ng/mL Normal: ??Greater than 5.4 ng/mL Blood specimen (specimen) BLOOD SPECIMEN / Unknown 08/10/2015 8:18 EST 08/10/2015 8:46 EST Grant Purdy ND CHEMISTRY & BLOOD GAS MEAGAN CHAPPELL Final Result [facility] [address] [place] [address] documented in this encounter Visit Diagnoses Diagnosis Elevated C-reactive protein (CRP)- Primary Disorders of sulfur-bearing amino-acid metabolism, unspecified (HCC-CMS) Malaise and fatigue Other malaise and fatigue Diverticulosis of large intestine without perforation or abscess without bleeding Diverticulosis of colon (without mention of hemorrhage) Vitamin D deficiency, unspecified documented in this encounter Care Teams Machine Heel Seat Fitter Relationship Specialty Start Date End Date Manuel Landrum MD [address] [address] PCP - General 12/30/13 02/22/16 documented as of this encounter
--- OUTSIDE RECORDS SUMMARY | 2024-08-28 16:55 | XMS_ITS | Encounter Summary ---
Author Organization [facility] Address [address] [place] [address] Care Team Providers Care Butter Grader Name Role Phone Prem Landrum MD Primary Care Provider + [phone] Encounter Details Date Type Department Care Team (Late st Contact Info) Description 11/18/2013 Results Only [facility] - [facility] ([facility] [address] [place], [place] [address] Manuel Landrum MD [address] [address] Social History Tobacco Use Types Packs/Day Years [...] [facility] Bilirubin, Total 1.0 <1.4 mg/dl [facility] 11/18/2013 15:2 9 EDT 11/18/2013 19:18 EDT us Manuel Landrum MD CHEMISTRY & BLOOD GAS ORD ERABLES Final Result Performing Organization Address City/State/[facility] Co de Phone Number [facility] [address] [place] [address] documented in this encounter Visit Diagnoses Not on filedocumented in this encounter Care Teams Butter Grader Relationship Specialty Start Date End Date Prem Landrum MD [address] [address] PCP - General 04/18/11 12/29/13 documented as of this encounter
--- OUTSIDE RECORDS SUMMARY | 2024-08-28 16:55 | XMS_ITS | Encounter Summary ---
Author Organization [facility] Address [address] [place] [address] Care Team Providers Care Bank Accountant Name Role Phone Manuel Landrum MD Primary Care Provider [phone] Reason for Referral * (Routine/Next Available) - Closed Specialty Diagnoses / Procedures Referred By [facility] t Referred To Contact Diagnoses SNHL (sensorineural hearing loss) Procedures HEARING EVALUATION Chetna Noble MD Phone: tel: fax: Referral ID Status Reason Start Date Expiration Date Visits Re quested Visits Authorized [id number] Closed 06/02/2014 1 1 Reason for Visit * Reason Comments Cerumen Impaction Encounter Details Date Type Department Care Team (Late st Contact Info) Description 06/02/2014 10:45 EDT Office Visit [facility]- [facility] [place] [address] [place], [place] [phone] Chetna Noble MD [address] [place] [address], [address] [place] [address] Impacted cerumen (Primary Dx); SNHL (sensorineural [...] Progress Notes * Chetna Noble MD - 06/02/2014 1213 EDT Pt feel [...] (06/17/2014 10:14 EDT) 06/17/2014 10:1 4 EDT us Scan 2 Press Worker Helper PROCEDURE/MINOR SURGICAL OR DERABLES Final Result documented in this encounter Visit Diagnoses Diagnosis Impacted cerumen- Primary SNHL (sensorineural hearing loss) Sensorineural hearing loss, unspecified documented in this encounter Care Teams Bank Accountant Relationship Specialty Start Date End Date Manuel Landrum MD 4 [facility] [address] [place] [address] PCP - General 12/30/13 02/22/16 documented as of this encounter
--- OUTSIDE RECORDS SUMMARY | 2024-08-28 16:55 | XMS_ITS | Encounter Summary ---
Author Organization [facility] Address [address] [place] [address] Care Team Providers Care Lining Maker Name Role Phone Manuel Landrum MD Primary Care Provider +1 -[phone] Encounter Details Date Type Department Care Team (Latest Contact Info) Description 01/20/2014 9:01 EDT - 01/20/2014 23:59 EDT Hospital Encounter [facility] [address] [place] [address] Grant Purdy ND [address] [place] [address] Discharge Disposition: Home or Self [...] Code Departure Means Destination Home or Self Fci documented in this encounter Plan of Treatment [...] % Basophils 0.9 0.2 - 1.4 % [facility] Neutrophils 3.98 2.20 - 8.85 K/cmm [facility] Lymphs 1.72 1.09 - 3.30 K/cmm [facility] Monocytes 0.67 0.1 - 0.8 K/cmm [facility] Eosinophils 0.24 0.03 - 0.61 K/cmm [facility] Basophils 0.06 0.01 - 0.11 K/cmm [facility] Type of Diff: Automated [facility] 01/20/2014 9:11 EDT 01/20/2014 9:53 EDT us Grant Purdy ND HEMATOLOGY & PF4 ORDERABLE S Final Result [facility] [address] [place] [address] * (ABNORMAL) HEMAGRAM (01/20/2014 9:11 EDT) WBC 6.67 4.0 - 10.4 K/cmm [facility] RBC 4.90 4.36 - 5.78 M/cmm [facility] Hemoglobin 16.2 13.8 - 17.3 gm/dl [facility] HCT 46.6 39.5 - 50.2 % [facility] MCV 95 81 - 95 fl [facility] MCH 33.1(H) 27.6 - 33.0 pg [facility] MCHC 34.9 32.8 - 36.4 gm/dl [facility] PLT 273 141 - 320 K/cmm [facility] RDW-CV 13.0 11.8 - 14.1 % [facility] 01/20/2014 9:11 EDT 01/20/2014 9:53 EDT rGant Purdy ND HEMATOLOGY & PF4 ORDERABLE S Final Result Performing Organization Address [facility] Co de Phone Number [facility] [address] [place] [address] * VITAMIN D (25,OH) (01/20/2014 9:11 EDT) [facility] 25OH Vitamin D Tot 26.4 ng/ml [facility] Comment: Reference Range: Deficient = <10 ng/ml Insufficient = 10-30 ng/ml Sufficient = 30-100 ng/ml Toxic = >100 ng/ml 01/20/2014 9:11 EDT 01/20/2014 9:53 EDT Grant Purdy ND CHEMISTRY & BLOOD GAS ORDE RABLES Final Result Performing Organization Address [facility] Co de Phone Number [facility] [address] [place] [address] * TSH (01/20/2014 9:11 EDT) [facility] TSH 1.30 0.35 - 5.00 uIU/ml [facility] 01/20/2014 9:11 EDT 01/20/2014 9:53 EDT Grant Purdy ND CHEMISTRY & BLOOD GAS ORDE RABLES Final Result Performing Organization Address [facility] de Phone Number [facility] [address] [place] [address] * C-REACTIVE PROTEIN HIGH SENSITIVITY (01/20/2014 9:11 EDT) [facility] High Sensitivity CRP 3.4 mg/L [facility] Comment: Reference Range: <1.0 mg/L Low risk 1.0-3.0 mg/L Average risk >3.0 mg/L High risk >10.0 mg/L Acute inflammation 01/20/2014 9:11 EDT 01/20/2014 9:53 EDT Grant Purdy ND CHEMISTRY & BLOOD GAS ORDE RABLES Final Result [facility] [address] [place] [address] * LYME AB (01/20/2014 9:11 EDT) Lyme AB Interpretati on: Negative [facility] Comment:Reference Range: Neg ative 01/20/2014 9:11 EDT 01/20/2014 9:53 EDT Grant Purdy ND IMMUNOLOGY AND SEROLOGY OR DERABLES Final Result Performing Organization Address [facility] de Phone Number [facility] [address] [place] [address] * IRON (01/20/2014 9:11 EDT) Iron 82 49 - 181 ug/dl [facility] 01/20/2014 9:11 EDT 01/20/2014 9:53 EDT Grant Purdy ND CHEMISTRY & BLOOD GAS ORDE RABLES Final Result Performing Organization Address [facility] Co de Phone Number [facility] [address] [place] [address] * IBC (01/20/2014 9:11 EDT) TIBC 324 261 - 462 ug/dl [facility] 01/20/2014 9:11 EDT 01/20/2014 9:53 EDT Grant Purdy ND CHEMISTRY & BLOOD GAS ORDE RABLES Final Result Performing Organization Address [facility] Co de Phone Number [facility] [address] [place] [address] * (ABNORMAL) HOMOCYSTEINE (01/20/2014 9:11 EDT) [facility] Homocysteine 14.9(H) 4.5 - 12.4 umol/L [facility] Comment: Results may be falsely elevated if [...] Purdy ND CHEMISTRY & BLOOD GAS ORDE [facility] Final Result Performing Organization Address [facility] Phone Number [facility] [address] [place] [address] * HEMOGLOBIN A1C (01/20/2014 9:11 EDT) [facility] Hemoglobin A1C 4.9 % S[facility] Comment: [...] Grant Purdy ND CHEMISTRY & BLOOD GAS ORDSivakumar CHAPPELL Final Result Performing Organization Address [facility] de Phone Number [facility] [address] [place] [address] * GGT (01/20/2014 9:11 EDT) [facility] GGT 61 15 - 73 U/L [facility] 01/20/2014 9:11 EDT 01/20/2014 9:53 EDT Grant Purdy ND CHEMISTRY & BLOOD GAS ORDE RABLES Final Result Performing Organization Address [facility] de Phone Number [facility] [address] [place] [address] * (ABNORMAL) TESTOSTERONE, TOTAL AND FREE (01/20/2014 9:11 EDT) Sex Hormone Binding Globulin 17.1(L) 17.3 - 65.8 nmol/L [facility] Testosterone, Total 327 241 - 827 ng/dl [facility] Testosterone, Free 9.0 5.0 - 21.0 ng/dl [facility] Comment: Test not recommended in patients with plasma protein abnormalities. 01/20/2014 9:11 EDT 01/20/2014 9:53 EDT Grant Purdy ND CHEMISTRY & BLOOD GAS ORDE RABLES Final Result Performing Organization Address [facility] de Phone Number [facility] [address] [place] [address] * FERRITIN (01/20/2014 9:11 EDT) Ferritin 151 22 - 322 ng/mL [facility] 01/20/2014 9:11 EDT 01/20/2014 9:53 EDT Grant Purdy ND CHEMISTRY & BLOOD GAS ORDE RABLES Final Result Performing Organization Address [facility] de Phone Number [facility] [address] [place] [address] * DHEA SULFATE (01/20/2014 9:11 EDT) DHEA Sulfate 81 24 - 244 ug/dl [facility] 01/20/2014 9:11 EDT 01/20/2014 9:53 EDT Grant Purdy ND CHEMISTRY & BLOOD GAS ORDE RABLES Final Result [facility] [address] [place] [address] * (ABNORMAL) COMPREHENSIVE METABOLIC PANEL (CMP) (01/20/2014 [...] Serum 89 70 - 100 mg/dl [facility] Fasting? YES [facility] 01/20/2014 9:11 EDT 01/20/2014 9:53 EDT Grant Purdy ND CHEMISTRY & BLOOD GAS ORDE RABLES Final Result [facility] [address] [place] [address] * VITAMIN B12 (01/20/2014 9:11 EDT) Pathologist [facility] Vitamin B-12 305 211 - 911 pg/ml [facility] 01/20/2014 9:11 EDT 01/20/2014 9:53 EDT us Grant Purdy ND CHEMISTRY & BLOOD GAS MEAGAN CHAPPELL Final Result [facility] [address] [place] [address] documented in this encounter Visit Diagnoses Not on filedocumented in this encounter Care Teams Lining Maker Relationship Specialty Start Date End Date Manuel Landrum MD [address] [id number] PCP - General 12/30/13 02/22/16 documented as of this encounter
--- OUTSIDE RECORDS SUMMARY | 2024-08-28 16:55 | XMS_ITS | Encounter Summary ---
Author Organization [facility] Address [address] [place] [address] Care Team Providers Care Poured Wall Foreman Name Role Phone Ya Yee MD Primary Care Provider +1 [phone] Reason for Visit * Reason Onset Date Comments Appointment Related 08/20/2016 Encounter Details Date Type Department Care Team (Late st Contact Info) Description 08/20/2016 Telephone [facility] - [address] [phone] Ya Yee MD [address] [place] [phone] Appointment Related Social History Tobacco Use [...] 06/28/2016 10:51 EST documented in this encounter Miscellaneous Notes * Telephone Encounter - Colleen Arora - 08/20/2016 0939 EST Called patient and left message regarding upcoming appt on 08/27/2016 and need for fasting labs prior. Fasting labs explained in msg, lab hours provided. Office phone number provided for questions. Colleen Arora CMA (AAKS) documented in this encounter Plan of Treatment Not on file documented as of this encounter Goals Goal Patient Goal Type Associated Problems Recent Progress Patient-Stated? Author LDL < 100 Result Component Hyperlipidemia 113( 9 9:29 EDT) No Colleen Arora documented as of this encounter Visit Diagnoses Not on filedocumented in this encounter Care Teams Poured Wall Foreman Relationship Specialty Start Date End Date Ya Yee MD [address] [place] [address] PCP - General 02/23/16 10/02/21 documented as of this encounter
--- OUTSIDE RECORDS SUMMARY | 2024-08-28 16:56 | XMS_ITS | Encounter Summary ---
Author Organization [facility] Address [address] [place] [address] Care Team Providers Care Facility Mechanic Name Role Phone Unavailable Primary Care Provider Unavailabl e Encounter Details Date Type Department Care Team (Late st Contact Info) Description 06/05/2002 14:10 EDT Hospital Encounter [facility] - Other [address] [place] [address] Manuel Morris MD [address] [place] [address] [address] [place] [phone] Unknown, Provider, Social History Tobacco Use Types Packs/Day Years [...]
--- OUTSIDE RECORDS SUMMARY | 2024-08-28 16:56 | XMS_ITS | Encounter Summary ---
Author Organization [facility] Address [address] [place] [address] Care Team Providers Care Regional Education Coordinator Name Role Phone Nolberto Mac MD Primary Care Provider +1 [phone] Encounter Details Date Type Department Care Team (Latest Contact Info) Description 02/25/2010 17:04 EDT - 02/25/2010 17:05 EDT Hospital Encounter [facility] - Other [address] [place] [address] Van Lind, DO [address] [place] [phone] Discharge Disposition: Home or Self Care Social [...] on filedocumented in this encounter Care Teams Regional Education Coordinator Relationship Specialty Start Date End Date Nolberto Mac MD [address] [place] [phone] PCP - General 02/24/09 04/17/11 documented as of this encounter
--- OUTSIDE RECORDS SUMMARY | 2024-08-28 16:56 | XMS_ITS | Encounter Summary ---
Author Organization [facility] Address [address] [place] [address] Care Team Providers Care Machine Engraver Name Role Phone Unavailable Primary Care Provider Unavailabl e Encounter Details Date Type Department Care Team (Latest Contact Info) Description 07/24/2007 11:20 EST - 07/24/2007 11:59 EST Hospital Encounter [facility] - Other [address] [place] [address] Nolberto Mac MD [address] [place] [phone] Discharge Disposition: Auto Discharge Social History [...]
--- OUTSIDE RECORDS SUMMARY | 2024-08-28 16:56 | XMS_ITS | Encounter Summary ---
Author Organization [facility] Address [address] [place] [address] Care Team Providers Care Appeals Reviewer Veteran Name Role Phone Nolberto Mac MD Primary Care Provider +1 -[phone] Encounter Details Date Type Department Care Team (Late st Contact Info) Description 01/06/2010 Abstract Used for ABSTRACTING Data [phone] Nolberto Mac MD [address] [place] [address] Social History Tobacco Use Types [...] on filedocumented in this encounter Care Teams Appeals Reviewer Veteran Relationship Specialty Start Date End Date Nolberto Mac MD [address] [place] [address] PCP - General 02/24/09 04/17/11 documented as of this encounter
--- OUTSIDE RECORDS SUMMARY | 2024-08-28 16:56 | XMS_ITS | Encounter Summary ---
Author Organization [facility] Address [address] [place] [address] Care Team Providers Care Maintenance Repairer Name Role Phone Unavailable Primary Care Provider Unavailabl e Encounter Details Date Type Department Care Team (Latest Contact Info) Description 08/21/2005 16:02 EST Hospital Encounter [facility] - Other [address] [place] [address] Nolberto Mac MD [address] [place] [phone] Discharge Disposition: Home or Self Care [...] or absence of malignant disease. Assayed utilizing [employer] chemiluminescent technology. Values obtained by using different assay methods cannot be used interchangeably. 08/21/2005 13:2 7 EST 08/21/2005 13:27 EST Nolberto Mac MD CHEMISTRY & BLOOD GAS ORD ERABLES Final Result Performing Organization Address [facility] de Phone Number [facility] [address] [place] [address] * (ABNORMAL) LIPID PROFILE (INCLUDES CHOLESTEROL, TRIGLYCERIDES, HDL, LDL) (08/21/2005 13:27 EST) Pathologist [facility] Cholesterol 271 mg/dl [facility] Comment: Desirable:<200 Borderline:200-239 High Risk:>hz=913 Triglycerides 219(H) 35 - 160 mg/dl [facility] HDL 56 mg/dl [facility] Comment: Highly Desirable:>60 Desirable:35-60 High Risk:<35 LDL, Calculated 171 mg/dl [facility] Comment: Desirable:<130 Borderline:130-159 High Risk:>vy=381 Chol/HDL Ratio 4.8 [facility] Fasting? Unknown [facility] 08/21/2005 13:2 7 EST 08/21/2005 13:27 EST Nolberto Mac MD CHEMISTRY & BLOOD GAS ORD ERABLES Final Result Performing Organization Address [facility] Co de Phone Number [facility] [address] [place] [address] * COMPREHENSIVE METABOLIC PANEL (08/21/2005 13:27 EST) Potassium 4.2 3.5 - 5.0 mEq/L [facility] Sodium 138 136 - 145 mEq/L [facility] Chloride 103 96 - 110 mEq/L [facility] CO2 27 24 - 32 mEq/L [facility] Total Alkaline Phosphatase 73 38 - 126 U/L [facility] Bilirubin, Total 0.8 0.2 - 1.3 mg/dl [facility] AST 30 15 - 46 U/L [facility] ALT 47 21 - 72 U/L [facility] Albumin 4.9 3.4 - 4.9 g/dl [facility] Total Protein 7.9 6.5 - 8.3 g/dl [facility] Creatinine 0.8 0.7 - 1.5 mg/dl [facility] BUN 15 10 - 26 mg/dl [facility] Calcium 9.0 8.5 - 10.5 mg/dl [facility] Calculated Calcium 8.5 8.5 - 10.5 mg/dl [facility] Glucose, Serum 98 70 - 110 mg/dl [facility] Fasting? Unknown [facility] Albumin/Globulin Ratio 1.6 [facility] 08/21/2005 13:2 7 EST 08/21/2005 13:27 EST Nolberto Mac MD CHEMISTRY & BLOOD GAS ORD ERABLES Final Result [facility] [address] [place] [address] * HEMAGRAM (08/21/2005 13:27 EST) WBC 6.23 4.0 - 10.4 K/cmm [facility] RBC 5.03 4.36 - 5.78 M/cmm [facility] Hemoglobin 16.1 13.8 - 17.3 gm/dl [facility] HCT 46.5 39.5 - 50.2 % [facility] MCV 92 81 - 95 fl [facility] MCH 32.0 27.6 - 33.0 pg [facility] MCHC 34.7 32.8 - 36.4 gm/dl [facility] PLT 313 141 - 320 K/cmm [facility] RDW-CV 12.4 11.8 - 14.1 % [facility] 08/21/2005 13:2 7 EST 08/21/2005 13:27 EST us Nolberto Mac MD HEMATOLOGY & PF4 ORDERABL ES Final Result Performing Organization Address City/State/[facility] Co de Phone Number [facility] [address] [address] documented in this encounter Visit Diagnoses Not on filedocumented in this encounter
--- OUTSIDE RECORDS SUMMARY | 2024-08-28 16:56 | XMS_ITS | Encounter Summary ---
Author Organization [facility] Address [address] [place] [address] Care Team Providers Care Receptionist Secretary Name Role Phone Prem Landrum MD Primary Care Provider + [phone] Encounter Details Date Type Department Care Team (Late st Contact Info) Description 04/26/2011 Results Only [facility] [phone] Edwin Pop, ZEUS [address] [place] [address] Social History Tobacco Use Types [...] ng unformatted reports. ? Name: ? LUIS CLAYTON ? Accession #: ? [id number] ? : ? 1950 (Age: 60) ??M [...] x 0.4 cm, irregular shave biopsy of [place], [facility] ? slightly crusted skin. ??The specimen is bisected and entirely submitted in a ? single cassette. ??(John Back)/[facility] ? End of Report ? [facility] 04/26/2011 04/26/2011 13: 41 EDT us Edwin SCHULZ PATHOLOGY ORDERABLES Final Result [facility] [address] [place] [address] documented in this encounter Visit Diagnoses Not on filedocumented in this encounter Care Teams Receptionist Secretary Relationship Specialty Start Date End Date Prem Landrum MD [address] [address] PCP - General 04/18/11 12/29/13 documented as of this encounter
--- OUTSIDE RECORDS SUMMARY | 2024-08-28 16:56 | XMS_ITS | Encounter Summary ---
Author Organization [facility] Address [address] [place] [address] Care Team Providers Care Supervisor Car And Yard Name Role Phone Prem Landrum MD Primary Care Provider + [phone] Reason for Visit * Reason Comments Follow-up Encounter Details Date Type Department Care Team (Late st Contact Info) Description 11/04/2012 11:20 EDT Office Visit [facility] ENT- [address] [address] Chetna Noble MD [address] [facility], [address] [place] [address] Impacted cerumen (Primary Dx) Social [...] Primary documented in this encounter Care Teams Supervisor Car And Yard Relationship Specialty Start Date End Date Prem Landrum MD [address] [address] PCP - General 04/18/11 12/29/13 documented as of this encounter
--- OUTSIDE RECORDS SUMMARY | 2024-08-28 16:56 | XMS_ITS | Encounter Summary ---
Author Organization [facility] Address [address] [place] [address] Care Team Providers Care Digital Content Marketing Manager Name Role Phone Nolberto Mac MD Primary Care Provider +[phone] Encounter Details Date Type Department Care Team (Latest Contact Info) Description 06/09/2009 10:08 EDT - 06/09/2009 23:59 EDT Hospital Encounter [facility] [address] [place] [address] Nolberto Mac MD [address] [place] [phone] Discharge Disposition: Auto Discharge Social History Tobacco [...] Results * PSA SCREEN (08/01/2009 10:15 EST) [facility] PSA 0.4 0 - 4.5 ng/ml [facility] Comment: Serum PSA concentration should not be interpreted as absolute evidence for the presence or absence of malignant disease. Assayed utilizing [employer] chemiluminescent technology. Values obtained by using different assay methods cannot be used interchangeably. PREVIOUS PSA RESULT ON 08/10/08 WAS 0.4 08/01/2009 10:1 5 EST 08/01/2009 14:23 EST Nolberto Mac MD CHEMISTRY & BLOOD GAS ORD ERABLES Final Result Performing Organization Address [facility] de Phone Number [facility] [address] [place] [address] * (ABNORMAL) LIPID PROFILE (INCLUDES CHOLESTEROL, TRIGLYCERIDES, HDL, LDL) (08/01/2009 10:15 EST) [facility] Cholesterol 268 mg/dl [facility] Comment: Desirable:<200 Borderline High:200-239 High:>bx=250 Triglycerides 170(H) 35 - 160 mg/dl [facility] HDL 53 mg/dl [facility] Comment: Low:<40 High(Desirable):>or=60 LDL, Calculated 181 mg/dl [facility] Comment: Optimal:<100 Above optimal:100-129 Borderline High:130-159 High:160-189 Very High:>bp=602 Chol/HDL Ratio 5.1 [facility] Fasting? Yes [facility] 08/01/2009 10:1 5 EST 08/01/2009 14:23 EST Nolberto Mac MD CHEMISTRY & BLOOD GAS ORD ERABLES Final Result Performing Organization Address [facility] de Phone Number [facility] [address] [place] [address] * COMPREHENSIVE METABOLIC PANEL (08/01/2009 10:15 EST) [facility] Potassium 4.4 3.5 - 5.0 mEq/L [facility] Sodium 138 136 - 145 mEq/L [facility] Chloride 99 96 - 110 mEq/L [facility] CO2 32 24 - 32 mEq/L [facility] Alkaline Phosphatase 73 38 - [...] Calculated Calcium 8.8 8.5 - 10.5 mg/dl [facility] Glucose, Serum 96 70 - 100 mg/dl [facility] Fasting? Yes [facility] 08/01/2009 10:1 5 EST 08/01/2009 14:23 EST us Nolberto Mac MD CHEMISTRY & BLOOD GAS ORD ERABLES Final Result Performing Organization Address City/State/[facility] Co de Phone Number [facility] [address] [place] [address] * HEMAGRAM (08/01/2009 10:15 EST) [facility] WBC 5.70 4.0 - 10.4 K/cmm [facility] RBC 4.98 4.36 - 5.78 M/cmm [facility] Hemoglobin 16.3 13.8 - 17.3 gm/dl [facility] HCT 46.2 39.5 - 50.2 % [facility] MCV 93 81 - 95 fl [facility] MCH 32.7 27.6 - 33.0 pg [facility] MCHC 35.3 32.8 - 36.4 gm/dl [facility] PLT 243 141 - 320 K/cmm [facility] RDW-CV 12.8 11.8 - 14.1 % [facility] 08/01/2009 10:1 5 EST 08/01/2009 14:23 EST Nolberto Mac MD HEMATOLOGY & PF4 ORDERABL ES Final Result Performing Organization Address City/State/[facility] Co de Phone Number [facility] [address] [place] [address] * CHEST PA AND LATERAL (06/09/2009 10:22 [...] agree with the findings. Emili Shields JUNIOR PERSONALIZED LIVING ASSISTANT IMG DIAGNOSTIC IMAGING OR DERABLES Final Result documented in this encounter Visit Diagnoses Not on filedocumented in this encounter Care Teams Digital Content Marketing Manager Relationship Specialty Start Date End Date Nolberto Mac MD [address] [place] [address] PCP - General 02/24/09 04/17/11 documented as of this encounter
--- OUTSIDE RECORDS SUMMARY | 2024-08-28 16:56 | XMS_ITS | Encounter Summary ---
Author Organization [facility] Address [address] [place] [address] Care Team Providers Care Agricultural Chemicals Inspector Name Role Phone Nolberto Mac MD Primary Care Provider [phone] Encounter Details Date Type Department Care Team (Latest Contact Info) Description 08/01/2009 21:31 EST - 08/01/2009 21:32 [facility] Hospital Encounter [facility] - Other [address] [place] [address] Nolberto Mac MD [address] [place] [address] Discharge Disposition: Home or Self [...] filedocumented in this encounter Care Teams Agricultural Chemicals Inspector Relationship Specialty Start Date End Date Nolberto Mac MD [address] [place] [address] PCP - General 02/24/09 04/17/11 documented as of this encounter
--- OUTSIDE RECORDS SUMMARY | 2024-08-28 16:56 | XMS_ITS | Encounter Summary ---
Author Organization [facility] Address [address] [place] [address] Care Team Providers Care Events Director Name Role Phone Unavailable Primary Care Provider Unavailabl e Encounter Details Date Type Department Care Team (Late st Contact Info) Description 08/07/2004 9:31 EST Hospital Encounter [facility] - Other [address] [place] [address] Nolberto Mac MD [address] [place] [address] Social History Tobacco Use Types [...] place to sleep or slept in a retirement (including now)? No 09/12/2021 Interpersonal Safety Answer [...]
--- OUTSIDE RECORDS SUMMARY | 2024-08-28 16:56 | XMS_ITS | Encounter Summary ---
Author Organization [facility] Address [address] [place] [address] Care Team Providers Care Supervisor Malted Milk Name Role Phone Unavailable Primary Care Provider Unavailabl e Encounter Details Date Type Department Care Team (Late st Contact Info) Description 01/04/2004 16:32 EDT Hospital Encounter [facility] - Other [address] [place] [address] Nolberto Mac MD [address] [place] [address] Social History Tobacco Use Types [...]
--- OUTSIDE RECORDS SUMMARY | 2024-08-28 16:56 | XMS_ITS | Encounter Summary ---
Author Organization [facility] Address [address] [place] [address] Care Team Providers Care Jail Keeper Name Role Phone Unavailable Primary Care Provider Unavailabl e Encounter Details Date Type Department Care Team (Late st Contact Info) Description 11/09/2008 10:22 EDT Hospital Encounter [address] [address] Chetna Noble MD [address] [place] [address], [address] [place] [address] Social History Tobacco Use Types [...]
--- OUTSIDE RECORDS SUMMARY | 2024-08-28 16:56 | XMS_ITS | Encounter Summary ---
Author Organization [facility] Address [address] [place] [address] Care Team Providers Care Kindergarten Paraprofessional Name Role Phone Nolberto Mac MD Primary Care Provider +1 [phone] Reason for Visit * Reason Comments Cerumen Impaction Encounter Details Date Type Department Care Team (Late st Contact Info) Description 09/06/2010 11:00 EST Office Visit [address] [address] Chetna Noble MD [address] [place] [address], [address] [place] [address] Impacted cerumen (Primary Dx) Social History Tobacco Use Types Packs/Day Years Used Date Smoking Tobacco: Never Assessed Sex and Gender Information Value Date Recorded Sex Assigned at Not on file Legal Sex Male 18:07 EST Gender Identity Male 10/27/2019 18:25 EDT Sexual Orientation Not on file documented as of this encounter Progress Notes * Chetna Noble MD - 09/06/2010 1118 EST Pt is here today for removal [...] Primary documented in this encounter Care Teams Kindergarten Paraprofessional Relationship Specialty Start Date End Date Nolberto Mac MD [address] [place] [address] PCP - General 02/24/09 04/17/11 documented as of this encounter
--- OUTSIDE RECORDS SUMMARY | 2024-08-28 16:56 | XMS_ITS | Encounter Summary ---
Author Organization [facility] Address [address] [place] [address] Care Team Providers Care Electroneurodiagnostic Technologist Name Role Phone Unavailable Primary Care Provider Unavailabl e Encounter Details Date Type Department Care Team (Latest Contact Info) Description 07/08/2001 18:23 EST Hospital Encounter [facility] Emergency Department - [facility] [address] [place] [address] Emergency, Default, MD Discharge Disposition: Home or [...]
--- OUTSIDE RECORDS SUMMARY | 2024-08-28 16:56 | XMS_ITS | Encounter Summary ---
Author Organization [facility] Address [address] [place] [address] Care Team Providers Care Knotting Machine Operator Portable Name Role Phone Nolberto Mac MD Primary Care Provider +1 [phone] Encounter Details Date Type Department Care Team (Late st Contact Info) Description 07/24/2007 Results Only [facility] - Maple conversion [address] [place] [address] Nolberto Mac MD [address] [place] [phone] Social History Tobacco Use Types Packs/Day Years [...] or absence of malignant disease. Assayed utilizing [employer] chemiluminescent technology. Values obtained by using different assay methods cannot be used interchangeably. 07/24/2007 10:3 0 EST 07/24/2007 14:12 EST Nolberto Mac MD CHEMISTRY & BLOOD GAS ORD ERABLES Final Result Performing Organization Address [facility] de Phone Number [facility] [address] [place] [address] * (ABNORMAL) LIPID PROFILE (INCLUDES CHOLESTEROL, TRIGLYCERIDES, HDL, LDL) (07/24/2007 10:30 EST) [facility] Cholesterol 234 mg/dl [facility] Comment: Desirable:<200 Borderline:200-239 High Risk:>qx=691 Triglycerides 178(H) 35 - 160 mg/dl [facility] HDL 56 mg/dl [facility] Comment: Highly Desirable:>60 Desirable:35-60 High Risk:<35 LDL, Calculated 142 mg/dl [facility] Comment: Desirable:<130 Borderline:130-159 High Risk:>xn=376 Chol/HDL Ratio 4.2 [facility] Fasting? Yes RACHEL CALL 07/24/2007 10:3 0 EST 07/24/2007 14:12 EST Nolberto Mac MD CHEMISTRY & BLOOD GAS ORD ERABLES Final Result Performing Organization Address [facility] de Phone Number [facility] [address] [place] [address] * (ABNORMAL) COMPREHENSIVE METABOLIC PANEL (07/24/2007 10:30 EST) [facility] Potassium 4.2 3.5 - 5.0 mEq/L [facility] Sodium 141 136 - 145 mEq/L [facility] Chloride 105 96 - 110 mEq/L [facility] CO2 23(L) 24 - 32 mEq/L [facility] Total Alkaline Phosphatase 88 38 - 126 U/L [facility] Bilirubin, Total <0.5 0.2 - 1.3 mg/dl [facility] AST 28 15 - 46 U/L [facility] ALT 43 21 - 72 U/L [facility] Albumin 4.2 3.4 - 4.9 g/dl [facility] Total Protein 7.8 6.5 - 8.3 g/dl [facility] Creatinine 0.79 0.7 - 1.5 mg/dl [facility] GFR, Calculated >60 ml/min/1.7 3m2 [facility] BUN 15 10 - 26 mg/dl [facility] Calcium 9.2 8.5 - 10.5 mg/dl [facility] Calculated Calcium 9.4 8.5 - 10.5 mg/dl [facility] Glucose, Serum 96 70 - 100 mg/dl [facility] Fasting? Yes [facility] 07/24/2007 10:3 0 EST 07/24/2007 14:12 EST Nolberto Mac MD CHEMISTRY & BLOOD GAS ORD ERABLES Final Result [facility] [address] [place] [address] * HEMAGRAM (07/24/2007 10:30 EST) WBC 6.67 [...] 07/24/2007 10:3 0 EST 07/24/2007 14:12 EST us Nolberto Mac MD HEMATOLOGY & PF4 ORDERABL ES Final Result [facility] [address] [place] [address] documented in this encounter Visit Diagnoses Not on filedocumented in this encounter Care Teams Knotting Machine Operator Portable Relationship Specialty Start Date End Date Nolberto Mac MD [address] [place] [address] PCP - General 02/24/09 04/17/11 documented as of this encounter
--- OUTSIDE RECORDS SUMMARY | 2024-08-28 16:56 | XMS_ITS | Encounter Summary ---
Author Organization [facility] Address [address] [place] [address] Care Team Providers Care Land Survey Technician Name Role Phone Prem Landrum MD Primary Care Provider + [phone] Reason for Visit * Reason Comments Cerumen Impaction Encounter Details Date Type Department Care Team (Late st Contact Info) Description 04/18/2011 9:55 EDT Office Visit [address] [address]24[address] Chetna Noble MD [address] [facility], [address] [place] [address] Impacted cerumen (Primary Dx) Social [...] Primary documented in this encounter Care Teams Land Survey Technician Relationship Specialty Start Date End Date Prem Landrum MD [address] [address] PCP - General 04/18/11 12/29/13 documented as of this encounter
--- OUTSIDE RECORDS SUMMARY | 2024-08-28 16:56 | XMS_ITS | Encounter Summary ---
Author Organization [facility] Address [address] [place] [address] Care Team Providers Care Mission Analyst Name Role Phone Unavailable Primary Care Provider Unavailabl e Encounter Details Date Type Department Care Team (Late st Contact Info) Description 12/24/2007 10:37 EDT Hospital Encounter [facility] [address] [place] [address] Gabriel Timmons MD [address] [place] [address] Social History Tobacco Use Types [...]
--- OUTSIDE RECORDS SUMMARY | 2024-08-28 16:56 | XMS_ITS | Encounter Summary ---
Author Organization [facility] Address [address] [place] [address] Care Team Providers Care Roller Engraver Name Role Phone Prem Landrum MD Primary Care Provider + [phone] Reason for Visit * Reason Comments Follow-up Encounter Details Date Type Department Care Team (Late st Contact Info) Description 07/17/2011 10:30 EST Office Visit [facility]- [address] [phone] Chetna Noble MD [address] [place] [address], [address] [place] [address] Impacted cerumen (Primary Dx) Social [...] may reflect changes made after this encounter. aspirin chewable 81 mg tablet Take by mouth daily. 11/02/2011 added in this encounter Care Teams Roller Engraver Relationship Specialty Start Date End Date Prem Landrum MD [address] [phone] PCP - General 04/18/11 12/29/13 documented as of this encounter
--- OUTSIDE RECORDS SUMMARY | 2024-08-28 16:56 | XMS_ITS | Encounter Summary ---
Author Organization [facility] Address [address] [place] [address] Care Team Providers Care Physical Therapist Center Manager Name Role Phone Nolberto Mac MD Primary Care Provider [phone] Reason for Visit * Reason Comments Follow-up cerumen impaction Encounter Details Date Type Department Care Team (Late st Contact Info) Description 12/19/2010 11:05 EDT Office Visit [address] [address] Chetna Noble MD [address] [place] [address], [address] [place] [address] Impacted cerumen (Primary Dx) Social [...] Notes * Chetna Noble MD - 12/19/2010 1128 EDT Pt here today for routine cerumen [...] Primary documented in this encounter Care Teams Physical Therapist Center Manager Relationship Specialty Start Date End Date Nolberto Mac MD [address] [place] [address] PCP - General 02/24/09 04/17/11 documented as of this encounter
--- OUTSIDE RECORDS SUMMARY | 2024-08-28 16:56 | XMS_ITS | Encounter Summary ---
Author Organization [facility] Address [address] [place] [address] Care Team Providers Care Adjuster Name Role Phone Unavailable Primary Care Provider Unavailabl e Encounter Details Date Type Department Care Team (Late st Contact Info) Description 05/15/1999 8:43 EDT - 05/15/1999 11:59 EDT Hospital Encounter [address] [address] Kirk Soto MD [address] [place] [address] Discharge Disposition: Auto Discharge Social [...]
--- OUTSIDE RECORDS SUMMARY | 2024-08-28 16:56 | XMS_ITS | Encounter Summary ---
Author Organization [facility] Address [address] [place] [address] Care Team Providers Care Denture Processor Name Role Phone Nolberto Mac MD Primary Care Provider +1 [phone] Encounter Details Date Type Department Care Team (Late st Contact Info) Description 03/01/2010 Abstract Used for ABSTRACTING Data [phone] Nolberto Mac MD [address] [place] [address] Social History Tobacco Use Types [...] may reflect changes made after this encounter. multivitamin (MULTIPLE VITAMIN) per tablet Take 1 Tab by mouth daily. 11/02/2011 added in this encounter Care Teams Denture Processor Relationship Specialty Start Date End Date Nolberto Mac MD [address] [place] [address] PCP - General 02/24/09 04/17/11 documented as of this encounter
--- OUTSIDE RECORDS SUMMARY | 2024-08-28 16:56 | XMS_ITS | Encounter Summary ---
Author Organization [facility] Address [address] [place] [address] Care Team Providers Care Field Services Manager Name Role Phone Prem Landrum MD Primary Care Provider [phone] Encounter Details Date Type Department Care Team (Late st Contact Info) Description 01/25/2012 Results Only [facility] Laboratory Services - [facility] ([facility] [address] [place], [place] [address] Manuel Landrum MD [address] [address] Social History Tobacco Use Types Packs/Day Years [...] Results * PSA SCREEN (01/25/2012 9:30 EDT) [facility] PSA 0.3 0 - 4.5 ng/ml [facility] Comment: Serum PSA concentration should not be interpreted as absolute evidence for the presence or absence of malignant disease. Assayed utilizing [employer] chemiluminescent technology. ??Values obtained by using different assay methods cannot be used interchangeably. 01/25/2012 9:30 EDT 01/25/2012 13:51 EDT Manuel Landrum MD CHEMISTRY & BLOOD GAS ORD ERABLES Final Result Performing Organization Address [facility] Co de Phone Number [facility] [address] [place] [address] * LIPID PROFILE (INCLUDES CHOLESTEROL, TRIGLYCERIDES, HDL, LDL) (01/25/2012 9:30 EDT) [facility] Cholesterol 260 mg/dl [facility] Comment: Desirable:<200 Borderline High:200-239 High:>tq=528 Triglycerides 223 mg/dl [facility] Comment: Normal:<150 Borderline High:150-199 High:200-499 Very High:>nk=368 HDL 53 mg/dl [facility] Comment: Low:<40 Normal:40-60 Desirable: >60 LDL, Calculated 162 mg/dl [facility] Comment: Optimal:<100 Near Optimal:100-129 Borderline High:130-159 High:160-189 Very High:>ia=011 Chol/HDL Ratio 4.9 [facility] Fasting? Yes R[facility]HEL [facility] 01/25/2012 9:30 EDT 01/25/2012 13:51 EDT Manuel Landrum MD CHEMISTRY & BLOOD GAS ORD ERABLES Final Result Performing Organization Address [facility] de Phone Number [facility] [address] [place] [address] * COMPREHENSIVE METABOLIC PANEL (CMP) (01/25/2012 9:30 EDT) Potassium 4.5 3.5 - 5.0 mEq/L [facility] Sodium 139 136 - 145 mEq/L [facility] [...] 100 mg/dl [facility] Fasting? Yes [facility] 01/25/2012 9:30 EDT 01/25/2012 13:51 EDT us Manuel Landrum MD CHEMISTRY & BLOOD GAS ORD ERABLES Final Result Performing Organization Address City/State/[facility] Co de Phone Number [facility] [address] [place] [address] documented in this encounter Visit Diagnoses Not on filedocumented in this encounter Care Teams Field Services Manager Relationship Specialty Start Date End Date Prem Landrum MD [address] [address] PCP - General 04/18/11 12/29/13 documented as of this encounter
--- OUTSIDE RECORDS SUMMARY | 2024-08-28 16:56 | XMS_ITS | Encounter Summary ---
Author Organization [facility] Address [address] [place] [address] Care Team Providers Care Beam Warper Name Role Phone Nolberto Mac MD Primary Care Provider +1 [phone] Encounter Details Date Type Department Care Team (Late st Contact Info) Description 05/12/2008 Before PRISM Converted Visit (Maple) [facility] - Maple conversion [address] [place] [address] Chetna Noble MD 111 [facility], [address] [place] [phone] Social History Tobacco Use Types Packs/Day Years [...] Noble MD - Chetna Noble MD - [facility] Job ID: [id number] Doc ID: [id number] cc: Moe Mac MD documented in this encounter Plan of Treatment Not on file documented as of this encounter Visit Diagnoses Not on filedocumented in this encounter Care Teams Beam Warper Relationship Specialty Start Date End Date Nolberto Mac MD [address] [place] [phone] PCP - General 02/24/09 04/17/11 documented as of this encounter
--- OUTSIDE RECORDS SUMMARY | 2024-08-28 16:56 | XMS_ITS | Encounter Summary ---
Author Organization [facility] Address [address] [place] [address] Care Team Providers Care Underground Truck Operator Name Role Phone Unavailable Primary Care Provider Unavailabl e Encounter Details Date Type Department Care Team (Late st Contact Info) Description 09/17/2000 7:58 EST Hospital Encounter [facility] - [address] [address] Manuel Morris MD [address] [place] [address] [address] [place] [address] Social History Tobacco Use Types Packs/Day Years [...] [facility] Comment: Desirable:<200 Borderline:200-239 High Risk:>tp=743 Moderate hemolysis Triglycerides 208(H) 35 - 160 mg/dl [facility] Comment:Moderate hemolysis HDL 47 mg/dl [facility] Comment: Highly Desirable:>60 Desirable:35-60 High Risk:<35 Fasting Moderate hemolysis LDL, Calculated 169 mg/dl [facility] Comment: Desirable:<130 Borderline:130-159 High Risk:>hx=222 Fasting Moderate hemolysis Chol/HDL Ratio 5.5 Fasting Moderate hemolysis [facility] 09/17/2000 8:00 EST 09/17/2000 8:04 EST us Manuel Morris MD CHEMISTRY & BLOOD GAS MEAGAN CHAPPELL Final Result [facility] [address] [place] [address] documented in this encounter Visit Diagnoses Not on filedocumented in this encounter
--- OUTSIDE RECORDS SUMMARY | 2024-08-28 16:56 | XMS_ITS | Encounter Summary ---
Author Organization [facility] Address [address] [place] [address] Care Team Providers Care Diploma Maker Name Role Phone Nolberto Mac MD Primary Care Provider +1 [phone] Encounter Details Date Type Department Care Team (Late st Contact Info) Description 08/07/2004 Results Only [facility] - Maple conversion [address] [place] [address] Nolberto Mac MD [address] [place] [address] Social History Tobacco Use Types [...] LDL) (08/07/2004 9:45 EST) Cholesterol 262 mg/dl [facility] Comment: Desirable:<200 Borderline:200-239 High Risk:>mo=710 Triglycerides 130 35 - 160 mg/dl [facility] HDL 54 mg/dl [facility] Comment: Highly Desirable:>60 Desirable:35-60 High Risk:<35 LDL, Calculated 182 mg/dl [facility] Comment: Desirable:<130 Borderline:130-159 High Risk:>jo=701 Chol/HDL Ratio 4.9 [facility] Fasting? Unknown [facility] 08/07/2004 9:45 EST 08/07/2004 14:15 EST us Nolberto Mac MD CHEMISTRY & BLOOD GAS ORD ERABLES Final Result [facility] [address] [place] [address] documented in this encounter Visit Diagnoses Not on filedocumented in this encounter Care Teams Diploma Maker Relationship Specialty Start Date End Date Nolberto Mac MD [address] [place] [phone] PCP - General 02/24/09 04/17/11 documented as of this encounter
--- OUTSIDE RECORDS SUMMARY | 2024-08-28 16:56 | XMS_ITS | Encounter Summary ---
Author Organization [facility] Address [address] [place] [address] Care Team Providers Care Mattress And Foundation Sewer Name Role Phone Nolberto Mac MD Primary Care Provider +1 [phone] Encounter Details Date Type Department Care Team (Late st Contact Info) Description 02/25/2010 Results Only [facility] Laboratory Services - [facility] ([facility] [address] [place], [place] [phone] Van Lind, DO [address] [place] [phone] Social History Tobacco Use Types Packs/Day Years [...] [facility] Comment: Desirable:<200 Borderline High:200-239 High:>gm=351 Triglycerides 161(H) 35 - 160 mg/dl [facility] HDL 53 mg/dl [facility] Comment: Low:<40 High(Desirable):>or=60 LDL, Calculated 164 mg/dl [facility] Comment: Optimal:<100 Above optimal:100-129 Borderline High:130-159 High:160-189 Very High:>ai=584 Chol/HDL Ratio 4.7 [facility] Fasting? Unknown [facility] 02/25/2010 8:00 EDT 02/25/2010 15:24 EDT Van Lind DO CHEMISTRY & BLOOD GAS O RDERABLES Final Result Performing Organization Address [facility] de Phone Number [facility] [address] [place] [address] * LIVER FUNCTION TESTS (02/25/2010 8:00 EDT) Pathologist [facility] Albumin 4.2 3.4 - 4.9 g/dl RACHEL [...] 15:24 EDT Van Lind DO CHEMISTRY & BLOOD GAS O RDERABLES Final Result Performing Organization Address [facility] de Phone Number [facility] [address] [place] [address] documented in this encounter Visit Diagnoses Not on filedocumented in this encounter Care Teams Mattress And Foundation Sewer Relationship Specialty Start Date End Date Nolberto Mac MD [address] [place] [address] PCP - General 02/24/09 04/17/11 documented as of this encounter
--- OUTSIDE RECORDS SUMMARY | 2024-08-28 16:56 | XMS_ITS | Encounter Summary ---
Author Organization [facility] Address [address] [place] [address] Care Team Providers Care Pilates Instructor Name Role Phone Nolberto Mac MD Primary Care Provider [phone] [phone] Encounter Details Date Type Department Care Team (Late st Contact Info) Description 12/24/2007 Before PRISM Converted Visit (Maple) [facility] - Maple conversion [address] [place] [address] Gabriel Timmons MD [address] [place] [phone] Social History Tobacco Use Types Packs/Day Years [...] Gabriel Timmons MD - [facility] Job ID: [id number] Doc ID: [id number] cc: Moe Mac MD documented in this encounter Plan of Treatment Not on file documented as of this encounter Visit Diagnoses Not on filedocumented in this encounter Care Teams Pilates Instructor Relationship Specialty Start Date End Date Nolberto Mac MD [address] [place] [phone] PCP - General 02/24/09 04/17/11 documented as of this encounter
--- OUTSIDE RECORDS SUMMARY | 2024-08-28 16:56 | XMS_ITS | Encounter Summary ---
Author Organization [facility] Address [address] [place] [address] Care Team Providers Care Screening Specialist Name Role Phone Prem Landrum MD Primary Care Provider +[phone] Encounter Details Date Type Department Care Team (Latest Contact Info) Description 04/26/2011 14:07 EDT - 04/26/2011 14:08 EDT Hospital Encounter [address] [address] Belle Pop PA [address] [place] [address] DR,[facility] [address] [place] [phone] Discharge Disposition: Home or Self Care Social [...] this encounter Medications at Time of Discharge multivitamin (MULTIPLE VITAMIN) per tablet Take 1 Tab by mouth daily. 11/02/2011 documented as of this encounter Discharge Disposition Disposition Code Departure Means Destination Home or Self Care documented in this encounter Plan of Treatment Not on file documented as of this encounter Visit Diagnoses Not on filedocumented in this encounter Care Teams Screening Specialist Relationship Specialty Start Date End Date Prem Landrum MD [address] [phone] PCP - General 04/18/11 12/29/13 documented as of this encounter
--- OUTSIDE RECORDS SUMMARY | 2024-08-28 16:56 | XMS_ITS | Encounter Summary ---
Author Organization [facility] Address [address] [place] [address] Care Team Providers Care Laborer Wrecking And Salvaging Name Role Phone Prem Landrum MD Primary Care Provider + [phone] Reason for Visit * Reason Comments Cerumen Impaction Encounter Details Date Type Department Care Team (Late st Contact Info) Description 05/06/2012 9:40 EDT Office Visit [facility]- [address] [phone] Chetna Noble MD 111 [facility], Level [address] [place] [address] Impacted cerumen (Primary Dx) Social [...] Primary documented in this encounter Care Teams Laborer Wrecking And Salvaging Relationship Specialty Start Date End Date Prem Landrum MD [address] [address] PCP - General 04/18/11 12/29/13 documented as of this encounter
--- OUTSIDE RECORDS SUMMARY | 2024-08-28 16:56 | XMS_ITS | Encounter Summary ---
Author Organization [facility] Address [address] [place] [address] Care Team Providers Care Tanker Driver Name Role Phone Nolberto Mac MD Primary Care Provider [phone] [phone] Reason for Visit * Reason Comments Cerumen Impaction Encounter Details Date Type Department Care Team (Late st Contact Info) Description 03/03/2010 14:45 EDT Office Visit [address] [phone] Chetna Noble MD [address] [place] [address], Level [address] [place] [address] Impacted cerumen (Primary Dx) Social History Tobacco Use Types Packs/Day Years Used Date Smoking Tobacco: Never Assessed Sex and Gender Information Value Date Recorded Sex Assigned at Not on file Legal Sex Male 18:07 EST Gender Identity Male 10/27/2019 18:25 EDT Sexual Orientation Not on file documented as of this encounter Progress Notes * Chetna Noble MD - 03/03/2010 7828 EDT Pt here today for cerumen removal, [...] Primary documented in this encounter Care Teams Tanker Driver Relationship Specialty Start Date End Date Nolberto Mac MD [address] [place] [address] PCP - General 02/24/09 04/17/11 documented as of this encounter
--- OUTSIDE RECORDS SUMMARY | 2024-08-28 16:56 | XMS_ITS | Encounter Summary ---
Author Organization [facility] Address [address] [place] [address] Care Team Providers Care Medical Care Evaluation Specialist Name Role Phone Prme Landrum MD Primary Care Provider +[phone] Encounter Details Date Type Department Care Team (Latest Contact Info) Description 01/25/2012 14:28 EDT - 01/25/2012 14:29 EDT Hospital Encounter [address] [address] Manuel Landrum MD [address] [address] Discharge Disposition: Home or Self Care Social [...] filedocumented in this encounter Care Teams Medical Care Evaluation Specialist Relationship Specialty Start Date End Date Prem Landrum MD [address] [address] PCP - General 04/18/11 12/29/13 documented as of this encounter
--- OUTSIDE RECORDS SUMMARY | 2024-08-28 16:56 | XMS_ITS | Encounter Summary ---
Author Organization [facility] Address [address] [place] [address] Care Team Providers Care Room Service Runner Name Role Phone Prem Landrum MD Primary Care Provider + [phone] Reason for Visit * Reason Comments Follow-up Encounter Details Date Type Department Care Team (Late st Contact Info) Description 11/02/2011 10:30 EDT Office Visit [facility] ENT- [address] [address] Chetna Noble MD 111 [facility], [address] [place] [address] Impacted cerumen; SNHL (sensorineural hearing [...] documented in this encounter Procedure Notes * INFORMATION TECHNOLOGY ACCOUNT MANAGER, SCAN 2 - 11/15/2011 1245 EDTAssociated Order(s): [...] EDT) 11/15/2011 12:4 5 EDT Narrative Transcriptions INFORMATION TECHNOLOGY ACCOUNT MANAGER, SCAN 2 - 11/15/2011 12:45 EDT us Scan 2 Rn Maternity PROCEDURE/MINOR SURGICAL OR DERABLES Final Result documented [...] documented as of this encounter Care Teams Room Service Runner Relationship Specialty Start Date End Date Prem Landrum MD [address] [address] PCP - General 04/18/11 12/29/13 documented as of this encounter
--- OUTSIDE RECORDS SUMMARY | 2024-08-28 16:56 | XMS_ITS | Encounter Summary ---
Author Organization [facility] Address [address] [place] [address] Care Team Providers Care Rigging Loft Mechanic Name Role Phone Unavailable Primary Care Provider Unavailabl e Encounter Details Date Type Department Care Team (Latest Contact Info) Description 08/10/2008 15:51 EST Hospital Encounter [facility] - Other [address] [place] [address] Nolberto Mac MD [address] [place] [address] Discharge Disposition: Home or Self Care [...]
--- OUTSIDE RECORDS SUMMARY | 2024-08-28 16:56 | XMS_ITS | Encounter Summary ---
Author Organization [facility] Address [address] [place] [address] Care Team Providers Care Spanish Tutor Name Role Phone Nolberto Mac MD Primary Care Provider +1 [phone] Encounter Details Date Type Department Care Team (Latest Contact Info) Description 12/25/2010 11:28 EDT - 12/25/2010 11:29 EDT Hospital Encounter [facility] [address] [place] [address] Nolberto Mac MD [address] [place] [phone] Discharge Disposition: Home or Self Care Social [...] on filedocumented in this encounter Care Teams Spanish Tutor Relationship Specialty Start Date End Date Nolberto Mac MD [address] [place] [address] PCP - General 02/24/09 04/17/11 documented as of this encounter
--- OUTSIDE RECORDS SUMMARY | 2024-08-28 16:56 | XMS_ITS | Encounter Summary ---
Author Organization [facility] Address [address] [place] [address] Care Team Providers Care Communications Programmer Name Role Phone Unavailable Primary Care Provider Unavailabl e Encounter Details Date Type Department Care Team (Late st Contact Info) Description 06/07/1999 15:40 EDT Hospital Encounter [facility] - Other [address] [place] [address] Manuel Morris MD [address] [place] [address] [address] [place] [phone] Unknown, Provider, Social History Tobacco Use Types [...]
--- OUTSIDE RECORDS SUMMARY | 2024-08-28 16:56 | XMS_ITS | Encounter Summary ---
Author Organization [facility] Address [address] [place] [address] Care Team Providers Care Staff Educator Name Role Phone Nolberto Mac MD Primary Care Provider +1 [phone] Encounter Details Date Type Department Care Team (Late st Contact Info) Description 12/25/2010 Results Only [facility] Laboratory Services - [facility] ([facility] [address] [place], [place] [id number] Nolberto Mac MD [address] [place] [address] Social History Tobacco Use Types [...] Results * PSA SCREEN (12/25/2010 9:20 EDT) Pathologist [facility] PSA 0.3 0 - 4.5 ng/ml RACHEL [...] ORD ERABLES Final Result Performing Organization Address [facility] de Phone Number [facility] [address] [place] [address] * (ABNORMAL) LIPID PROFILE (INCLUDES CHOLESTEROL, TRIGLYCERIDES, HDL, LDL) (12/25/2010 9:20 EDT) Pathologist [facility] Cholesterol 271 mg/dl [facility] Comment:Desirable:<200 Borde rline High:200-239 High:>ld=741 Triglycerides 274(H) 35 - 160 mg/dl [facility] HDL 50 mg/dl [facility] Comment:Low:<40 High(Desirab le):>or=60 LDL, Calculated 166 mg/dl [facility] Comment: Optimal:<100 Above optimal:100-129 Borderline High:130-159 High:160-189 Very High:>jv=773 Chol/HDL Ratio 5.4 [facility] Fasting? Yes [facility] 12/25/2010 9:20 EDT 12/25/2010 13:50 EDT Nolberto Mac MD CHEMISTRY & BLOOD GAS ORD ERABLES Final Result Performing Organization Address [facility] de Phone Number [facility] [address] [place] [address] * (ABNORMAL) HEMAGRAM (12/25/2010 9:20 EDT) Pathologist [facility] WBC 6.46 4.0 - 10.4 K/cmm [facility] RBC 4.84 4.36 - 5.78 M/cmm [facility] [...] EDT Nolberto Mac MD HEMATOLOGY & PF4 ORDERABL ES Final Result Performing Organization Address [facility] Co de Phone Number [facility] [address] [place] [address] * BASIC METABOLIC PANEL (12/25/2010 9:20 EDT) Sodium 141 136 - 145 mEq/L [facility] Potassium 4.5 3.5 - 5.0 mEq/L [facility] Chloride 101 96 - 110 mEq/L [facility] CO2 30 24 - 32 mEq/L [facility] BUN 19 10 - 26 mg/dl [facility] Creatinine 0.75 0.7 - 1.5 mg/dl [facility] GFR, Calculated >60 ml/min/1.7 3m2 [facility] Calcium 9.1 8.5 - 10.5 mg/dl [facility] Calculated Calcium 9.0 8.5 - 10.5 mg/dl [facility] Glucose, Serum 90 70 - 100 mg/dl [facility] Fasting? Yes [facility] 12/25/2010 9:20 EDT 12/25/2010 13:50 EDT Nolberto Mac MD CHEMISTRY & BLOOD GAS ORD ERABLES Final Result [facility] [address] [place] [address] documented in this encounter Visit Diagnoses Not on filedocumented in this encounter Care Teams Staff Educator Relationship Specialty Start Date End Date Nolberto Mac MD [address] [place] [phone] PCP - General 02/24/09 04/17/11 documented as of this encounter
--- OUTSIDE RECORDS SUMMARY | 2024-08-28 16:56 | XMS_ITS | Encounter Summary ---
Author Organization [facility] Address [address] [place] [address] Care Team Providers Care Manager Ed Name Role Phone Unavailable Primary Care Provider Unavailabl e Encounter Details Date Type Department Care Team (Late st Contact Info) Description 09/17/2005 9:19 EST Hospital Encounter [address] [phone] Chetna Noble MD [address] [place] [address], [address] [place] [address] Social History Tobacco Use Types [...]
--- OUTSIDE RECORDS SUMMARY | 2024-08-28 16:56 | XMS_ITS | Encounter Summary ---
Author Organization [facility] Address [address] [place] [address] Care Team Providers Care Direct Customer Service Representative Name Role Phone Unavailable Primary Care Provider Unavailabl e Encounter Details Date Type Department Care Team (Late st Contact Info) Description 05/12/2008 10:17 EDT Hospital Encounter [address] [address] Chetna Noble MD [address] [place] [address], [address] [place] [address] Social History Tobacco Use Types [...] place to sleep or slept in a long-term (including now)? No 09/12/2021 Interpersonal Safety Answer [...] or absence of malignant disease. Assayed utilizing [employer] chemiluminescent technology. Values obtained by using different assay methods cannot be used interchangeably. PREVIOUS PSA RESULT ON 07/24/07 WAS 0.3 08/10/2008 11:3 0 EST 08/10/2008 14:54 EST Nolberto Mac MD CHEMISTRY & BLOOD GAS ORD ERABLES Final Result [facility] [address] [place] [address] * (ABNORMAL) HEMAGRAM (08/10/2008 11:30 EST) WBC 7.08 4.0 - 10.4 K/cmm [facility] RBC 4.67 4.36 - 5.78 M/cmm [facility] Hemoglobin 15.5 13.8 - 17.3 gm/dl [facility] HCT 43.5 39.5 - 50.2 [...] ORDERABL ES Final Result Performing Organization Address [facility] [place] [facility] de Phone Number [facility] [address] [place] [address] * (ABNORMAL) LIPID PROFILE (08/10/2008 11:30 EST) [facility] Cholesterol 245 mg/dl [facility] Comment: Desirable:<200 Borderline High:200-239 High:>vl=055 Triglycerides 229(H) 35 - 160 mg/dl [facility] HDL 50 mg/dl [facility] Comment: Low:<40 High(Desirable):>or=60 LDL, Calculated 149 mg/dl [facility] Comment: Optimal:<100 Above optimal:100-129 Borderline High:130-159 High:160-189 Very High:>yf=134 Chol/HDL Ratio 4.9 [facility] Fasting? Yes [facility] 08/10/2008 11:3 0 EST 08/10/2008 14:54 EST Nolberto Mac MD CHEMISTRY & BLOOD GAS ORD ERABLES Final Result Performing Organization Address [facility] [place] [facility] de Phone Number [facility] [address] [place] [address] * COMPREHENSIVE METABOLIC PANEL (08/10/2008 11:30 EST) [facility] Potassium 4.5 3.5 - 5.0 mEq/L [facility] Sodium 143 136 - 145 mEq/L [facility] Chloride 104 96 - 110 mEq/L [facility] CO2 29 24 - 32 mEq/L [facility] Alkaline Phosphatase 69 38 - 126 U/L [facility] Bilirubin, Total <0.5 0.2 - 1.3 mg/dl [facility] AST 31 15 - 46 U/L [facility] ALT 48 21 - 72 U/L [facility] Albumin 4.7 3.4 - 4.9 g/dl [facility] Total Protein 7.0 6.5 - 8.3 g/dl [facility] Creatinine 0.83 0.7 - 1.5 mg/dl [facility] GFR, Calculated >60 ml/min/1.7 3m2 [facility] BUN 17 10 - 26 mg/dl [facility] Calcium 9.1 8.5 - 10.5 mg/dl [facility] Calculated Calcium 8.8 8.5 - 10.5 mg/dl [facility] Glucose, Serum 80 70 - 100 mg/dl [facility] Fasting? Yes [facility] 08/10/2008 11:3 0 EST 08/10/2008 14:54 EST us Nolberto Mac MD CHEMISTRY & BLOOD GAS ORD ERABLES Final Result [facility] [address] [place] [address] documented in this encounter Visit Diagnoses Not on filedocumented in this encounter
--- OUTSIDE RECORDS SUMMARY | 2024-08-28 16:56 | XMS_ITS | Encounter Summary ---
Author Organization [facility] Address [address] [place] [address] Care Team Providers Care Wellness Spa Manager Name Role Phone Nolberto Mac MD Primary Care Provider +1 [phone] Encounter Details Date Type Department Care Team (Late st Contact Info) Description 06/27/[address] [phone] Chetna Noble MD 111 [facility], [address] [place] [phone] Impacted Cerumen Social History Tobacco Use Types [...] cerumen documented in this encounter Care Teams Wellness Spa Manager Relationship Specialty Start Date End Date Nolberto Mac MD [address] [place] [phone] PCP - General 02/24/09 04/17/11 documented as of this encounter
--- OUTSIDE RECORDS SUMMARY | 2024-08-28 16:56 | XMS_ITS | Encounter Summary ---
Author Organization [facility] Address [address] [place] [address] Care Team Providers Care Sand Mill Operator Core Sand Name Role Phone Nolberto Mac MD Primary Care Provider +1 [phone] Reason for Visit * Reason Comments Finger Injury Encounter Details Date Type Department Care Team (Latest Contact Info) Description 10/04/2010 10:20 EST - 10/04/2010 12:27 EST Hospital Encounter [facility] - [facility] [address] [place] [address] Catherine Kerr NP [address] [place] [phone] Finger sprain Discharge Disposition: Home or Self [...] in this encounter ED Notes * Felipa Kerr NP - 10/04/2010 1203 EST Images from the [...] 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 The history is provided by the patient. [...] fracture or dislocation is seen. Catherine Kerr LOG GRADER IMG DIAGNOSTIC IMAGING ORD ERABLES Final Result documented in this encounter Visit Diagnoses Diagnosis Finger sprain Sprain of hand, unspecified site documented in this encounter Orders General Supply Count Last Ordered Date First Or dered Date ED SPLINT 1 10/04/2010 documented in this encounter Care Teams Sand Mill Operator Core Sand Relationship Specialty Start Date End Date Nolberto Mac MD [address] [place] [address] PCP - General 02/24/09 04/17/11 documented as of this encounter
--- OUTSIDE RECORDS SUMMARY | 2024-08-28 16:56 | XMS_ITS | Encounter Summary ---
Author Organization [facility] Address [address] [place] [address] Care Team Providers Care Evp Global Multimedia Sales Name Role Phone Nolberto Mac MD Primary Care Provider +1 [phone] Encounter Details Date Type Department Care Team (Late st Contact Info) Description 09/17/2005 Before PRISM Converted Visit (Maple) [facility] - Maple conversion [address] [place], [place] [address] Chetna Noble MD 111 [facility], [address] [place] [phone] Social History Tobacco Use Types Packs/Day Years [...] Noble MD 09/20/2005 08:48 Deshawn Reyes MD Chetna Noble MD D: - Chetna Noble MD A - wlp Job ID: Tape Document ID: [id number] cc: Moe Mac MD documented in this encounter Plan of Treatment Not on file documented as of this encounter Visit Diagnoses Not on filedocumented in this encounter Care Teams [employer] Sales Relationship Specialty Start Date End Date Nolberto Mac MD [address] [place] [address] PCP - General 02/24/09 04/17/11 documented as of this encounter
--- OUTSIDE RECORDS SUMMARY | 2024-08-28 16:56 | XMS_ITS | Encounter Summary ---
Author Organization [facility] Address [address] [place] [address] Care Team Providers Care Application Support Intern Name Role Phone Prem Landrum MD Primary Care Provider + [phone] Reason for Visit * Reason Comments Follow-up Encounter Details Date Type Department Care Team (Late st Contact Info) Description 02/04/2012 8:15 EDT Office Visit [facility] ENT- [address] [address] Chetna Noble MD [address] [facility], [address] [place] [address] Impacted cerumen (Primary Dx) [...] Primary documented in this encounter Care Teams Application Support Intern Relationship Specialty Start Date End Date Prem Landrum MD [address] [address] PCP - General 04/18/11 12/29/13 documented as of this encounter
--- OUTSIDE RECORDS SUMMARY | 2024-08-28 16:56 | XMS_ITS | Encounter Summary ---
Author Organization [facility] Address [address] [place] [address] Care Team Providers Care Life Guard Name Role Phone Prem Landrum MD Primary Care Provider + [phone] Reason for Visit * Reason Comments Cerumen Impaction Encounter Details Date Type Department Care Team (Late st Contact Info) Description 08/04/2012 9:40 EST Office Visit [facility]- [address] [address] Chetna Noble MD 111 [facility], [address] [place] [address] Impacted cerumen (Primary Dx) Social [...] Primary documented in this encounter Care Teams Life Guard Relationship Specialty Start Date End Date Prem Landrum MD [address] [address] PCP - General 04/18/11 12/29/13 documented as of this encounter
--- OUTSIDE RECORDS SUMMARY | 2024-08-28 16:56 | XMS_ITS | Encounter Summary ---
Author Organization [facility] Address [address] [place] [address] Care Team Providers Care Surgery Specialist Name Role Phone Nolberto Mac MD Primary Care Provider +1 [phone] Reason for Visit * Reason Comments Follow-up 3 mo f/u cerumen imp action Encounter Details Date Type Department Care Team (Late st Contact Info) Description 06/07/2010 11:35 EDT Office Visit [facility] ENT- [address] [address] Chetna Noble MD 111 [facility], [address] [place] [address] Impacted cerumen (Primary Dx) Social [...] Primary documented in this encounter Care Teams Surgery Specialist Relationship Specialty Start Date End Date Nolberto Mac MD [address] [place] [phone] PCP - General 02/24/09 04/17/11 documented as of this encounter
--- OUTSIDE RECORDS SUMMARY | 2024-08-28 16:56 | XMS_ITS | Encounter Summary ---
Author Organization [facility] Address [address] [place] [address] Care Team Providers Care Poison Information Specialist Name Role Phone Unavailable Primary Care Provider Unavailabl e Encounter Details Date Type Department Care Team (Late st Contact Info) Description 07/27/2002 8:36 EST - 07/27/2002 11:59 EST Hospital Encounter [address] [address] Prem Hearn MD [address] [facility], [address] [place] [phone] Discharge Disposition: Auto Discharge Social History Tobacco [...]
--- OUTSIDE RECORDS SUMMARY | 2024-08-28 16:56 | XMS_ITS | Encounter Summary ---
Author Organization [facility] Address [address] [place] [address] Care Team Providers Care Industry Operations Investigator Name Role Phone Nolberto Mac MD Primary Care Provider +1 [phone] Encounter Details Date Type Department Care Team (Late st Contact Info) Description 06/05/2002 Results Only [facility] - Maple conversion [address] [place] [address] Manuel Morris MD [address] [place] [address] [address] [place] [phone] Social History Tobacco Use Types Packs/Day Years [...] or absence of malignant disease. Assayed utilizing Omid chemiluminescent technology. Values obtained by using different assay methods cannot be used interchangeably. Assay changed to equimolar method 02/17/01. 06/05/2002 8:35 EDT 06/05/2002 15:26 EDT us Manuel Morris MD CHEMISTRY & BLOOD GAS MEAGAN CHAPPELL Final Result Performing Organization Address City/State/[facility] Co de Phone Number [facility] [address] [place] [address] documented in this encounter Visit Diagnoses Not on filedocumented in this encounter Care Teams Industry Operations Investigator Relationship Specialty Start Date End Date Nolberto Mac MD [address] [place] [address] PCP - General 02/24/09 04/17/11 documented as of this encounter
--- OUTSIDE RECORDS SUMMARY | 2024-08-28 16:56 | XMS_ITS | Encounter Summary ---
Author Organization [facility] Address [address] [place] [address] Care Team Providers Care Lawn Mower Repairer Name Role Phone Nolberto Mac MD Primary Care Provider +1 [phone] Encounter Details Date Type Department Care Team (Late st Contact Info) Description 01/04/2004 Results Only [facility] - Maple conversion [address] [place] [address] Nolberto Mac MD [address] [place] [phone] Social History Tobacco Use Types Packs/Day Years [...] Results * THYROID CASCADE (01/04/2004 10:35 EDT) Pathologist [facility] TSH 0.94 0.35 - 5.50 uIU/ml [facility] Comment: TSH cascade is not recommended for patients in which pituitary or hypothalamic disorders are suspected. 01/04/2004 10:3 5 EDT 01/04/2004 14:37 EDT Nolberto Mac MD CHEMISTRY & BLOOD GAS ORD ERABLES Final Result Performing Organization Address [facility] de Phone Number [facility] [address] [place] [address] * PSA SCREEN (01/04/2004 10:35 EDT) Pathologist [facility] PSA 0.3 0 - 3.5 ng/ml [facility] Comment: Serum PSA concentration should not be interpreted as absolute evidence for the presence or absence of malignant disease. Assayed utilizing [employer] chemiluminescent technology. Values obtained by using different assay methods cannot be used interchangeably. Assay changed to equimolar method 02/17/01. 01/04/2004 10:3 5 EDT 01/04/2004 14:37 EDT Nolberto Mac MD CHEMISTRY & BLOOD GAS ORD ERABLES Final Result Performing Organization Address [facility] de Phone Number [facility] [address] [place] [address] * LIPID PROFILE (INCLUDES CHOLESTEROL, TRIGLYCERIDES, HDL, LDL) (01/04/2004 10:35 EDT) Pathologist [facility] Cholesterol 277 mg/dl [facility] Comment: Desirable:<200 Borderline:200-239 High Risk:>mi=967 Fasting Triglycerides 143 35 - 160 mg/dl [facility] Comment:Fasting HDL 57 mg/dl [facility] Comment: Highly Desirable:>60 Desirable:35-60 High Risk:<35 Fasting LDL, Calculated 191 mg/dl [facility] Comment: Desirable:<130 Borderline:130-159 High Risk:>fe=742 Fasting Chol/HDL Ratio 4.9 Fasting [facility] 01/04/2004 10:3 5 EDT 01/04/2004 14:37 EDT Nolberto Mac MD CHEMISTRY & BLOOD GAS ORD ERABLES Final Result Performing Organization Address City/[facility]/ZIP Co de Phone Number [facility] [address] [place] [address] * COMPREHENSIVE METABOLIC PANEL (01/04/2004 10:35 EDT) [...] ORD ERABLES Final Result Performing Organization Address City/[facility]/ZIP Co de Phone Number [facility] [address] [place] [address] * HEMAGRAM (01/04/2004 10:35 EDT) WBC 5.95 [...] 01/04/2004 10:3 5 EDT 01/04/2004 14:37 EDT us Nolberto Mac MD HEMATOLOGY & PF4 ORDERABL ES Final Result [facility] [address] [place] [address] documented in this encounter Visit Diagnoses Not on filedocumented in this encounter Care Teams Lawn Mower Repairer Relationship Specialty Start Date End Date Nolberto Mac MD [address] [place] [phone] PCP - General 02/24/09 04/17/11 documented as of this encounter
--- OUTSIDE RECORDS SUMMARY | 2024-08-28 16:56 | XMS_ITS | Encounter Summary ---
Author Organization [facility] Address [address] [place] [address] Care Team Providers Care Hot Roller Name Role Phone Nolberto Mac MD Primary Care Provider +1 [phone] Encounter Details Date Type Department Care Team (Late st Contact Info) Description 07/20/2010 Abstract Used for ABSTRACTING Data [phone] Nolberto Mac MD [address] [place] [address] Social History Tobacco Use Types [...] filedocumented in this encounter Care Teams Hot Roller Relationship Specialty Start Date End Date Nolberto Mac MD [address] [place] [address] PCP - General 02/24/09 04/17/11 documented as of this encounter
--- OUTSIDE RECORDS SUMMARY | 2024-08-28 16:57 | XMS_ITS | Encounter Summary ---
Author Organization [facility] Address [address] [place] [address] Care Team Providers Care Business Systems Architect Name Role Phone Unavailable Primary Care Provider Unavailabl e Encounter Details Date Type Department Care Team (Late st Contact Info) Description 05/12/1999 9:18 EDT Hospital Encounter [address] [address] Kirk Soto MD [address] [place] [address] Social History Tobacco Use Types [...] slept in a half-way (including now)? No 09/12/2021 Interpersonal Safety Answer [...]
== END 2024-08-28 16:50 | disposition home or self-care (01) ==
LOC: NCHCN 16:49
PROVIDERS: PCP Family Medicine; Visit Provider Family Medicine
DX: R03.0 Elevated blood-pressure reading, without diagnosis of hypertension (principal)
CPT/HCPCS: 80048; 83735; 86140

== ENCOUNTER → 2024-10-12 07:54 | Outpatient (BNVA) | payer MEDICARE, SELFPAY | PROVIDERS: PCP Family Medicine; Referring Provider Family Medicine | DX: M70.61 Trochanteric bursitis, right hip (principal); M70.62 Trochanteric bursitis, left hip; M16.11 Unilateral primary osteoarthritis, right hip; M16.12 Unilateral primary osteoarthritis, left hip | CPT/HCPCS: 99213 ==

== ENCOUNTER → 2025-02-08 09:22 | Outpatient (BNVA) | payer MEDICARE, SELFPAY | PROVIDERS: PCP Family Medicine; Referring Provider Family Medicine; Visit Provider Physician Assistant | DX: M70.61 Trochanteric bursitis, right hip (principal); M70.62 Trochanteric bursitis, left hip; M16.0 Bilateral primary osteoarthritis of hip | CPT/HCPCS: 99213 ==

== ENCOUNTER → 2025-02-26 09:38 | Outpatient (BNVA) | payer MEDICARE, SELFPAY | PROVIDERS: PCP Family Medicine; Referring Provider Family Medicine; Visit Provider Physician Assistant | DX: M16.0 Bilateral primary osteoarthritis of hip (principal) | CPT/HCPCS: 20611; J1010 ==

== ENCOUNTER → 2025-04-26 14:36 | Outpatient (BNVA) | payer MEDICARE, SELFPAY | PROVIDERS: PCP Family Medicine; Referring Provider Family Medicine; Visit Provider Student in an Organized Health Care Education/Training Program | DX: M70.61 Trochanteric bursitis, right hip (principal); M70.62 Trochanteric bursitis, left hip; M16.0 Bilateral primary osteoarthritis of hip | CPT/HCPCS: 99214 ==

== ENCOUNTER 2025-05-25 01:30 | Outpatient (CLI) | payer MEDICARE, SELFPAY ==
--- NOTE | 2025-05-25 07:15 | DI.MRI_ITS ---
Exam(s) MR LOWER JOINT RT WO EXAM: MR LOWER JOINT RT WO CLINICAL HISTORY: PAIN,PRIM OSTEOARTHRITIS OF R HIP,TROCHANTERIC BURSITIS R HIP,M16.11 M70.61 TECHNIQUE: Multiplanar multisequence MRI of the hip was performed. COMPARISON: CR XR FEMUR RT from 03/02/2024 CR XR FEMUR LT from 03/02/2024 FINDINGS: MARROW:There is no evidence of fracture, bone contusion, nor avascular necrosis. There is a large calcified bony excrescence coming off the posterior aspect of the right femoral neck which measures 2.7 cm AP by 2.2 cm wide by 3 cm craniocaudal. This has the appearance of an osteo chondroma, extending posteriorly from the femoral neck and causing mass effect upon the posterior capsule and overlying gemellus inferior muscle. There is no bony excrescence off the anterior femoral neck. HIP JOINT SPACE: There are moderate degenerative changes in the hip joint. Moderate articular cartilage loss. Small osteophytes. There are also degenerative subarticular cysts at the level the fovea central as in the femoral head and some surrounding mild bone edema. LABRUM: There is some irregularity of the anterosuperior labrum with intra labral cyst signal abnormality consistent with labral tear and small paralabral cyst. TENDONS: Mild tendinitis signal evident in gluteus medius tendon. BURSAE: There is no evidence of trochanteric bursitis. There is no evidence of iliopsoas bursitis. ISCHIAL TUBEROSITY/HAMSTRING: There is no abnormal intraosseous signal in the ipsilateral ischial tuberosity nor tear of the common hamstrings tendon attachment site at this level. OTHER: There is no abnormal intramuscular signal within the quadratus femoris to suggest the presence of impingement syndrome at this level. IMPRESSION: 1. In addition to moderate degenerative changes in the right hip joint there is also a prominent bony excrescence-probable osteo chondroma off the posterior aspect of the right femoral neck which measures 27 x 22 x 30 mm, extending posteriorly and exhibiting some mass effect upon the posterior hip joint capsule and overlying gemellus inferior muscle. 2. There is tearing of the anterior superior labrum and there is a small paralabral cyst 3. Mild tendinitis signal noted lateral to the greater trochanter in the gluteus medius tendon. No evidence of trochanteric bursitis. DATA REPOSITORY:
== END 2025-05-25 01:50 ==
LOC: DI 01:30
PROVIDERS: PCP Family Medicine; Visit Provider Student in an Organized Health Care Education/Training Program
DX: M16.11 Unilateral primary osteoarthritis, right hip (principal); M70.61 Trochanteric bursitis, right hip; M70.62 Trochanteric bursitis, left hip
CPT/HCPCS: 73721

== ENCOUNTER 2025-07-05 10:55 | Outpatient (REF) | payer MEDICARE, SELFPAY ==
[2025-07-05 14:46] LABS: HCT 44.2 % (40.0-50.0); HGB 15.4 g/dL (13.5-17.5); MCH 32.2 pg (27.0-33.0); MCHC 34.8 % (32.0-36.0); MCV 93 fL (80-95); MPV 10.6 fL (8.0-11.0); Platelet Count 254 10^3/uL (130-400); RBC 4.78 10^6/uL (4.36-5.78); RDW 12.7 % (11.8-14.1); RDW-SD 43.0 fL; WBC 5.85 10^3/uL (4.4-10.8)
[2025-07-05 14:55] LABS: Anion Gap 6.6 mmol/L (3-11); BUN 16 mg/dL (9-23); CO2 30.4 mmol/L (20.0-31.0); Calcium 9.0 mg/dL (8.3-10.6); Chloride 105 mmol/L (98-107); Glucose 93 mg/dL (74-106); Potassium 4.3 mmol/L (3.5-5.1); Sodium 142 mmol/L (136-145)
== END 2025-07-05 10:56 | disposition home or self-care (01) ==
LOC: NCHCN 10:55
PROVIDERS: PCP Family Medicine; Visit Provider Family Medicine
DX: Z01.818 Encounter for other preprocedural examination (principal)
CPT/HCPCS: 80048; 85027

== ENCOUNTER 2025-07-22 14:22 | Outpatient (CLI) | payer MEDICARE, SELFPAY ==
--- NOTE | 2025-07-22 10:30 | DI.RAD_ITS ---
Exam(s) XR PELVIS AP EXAM: XR PELVIS AP CLINICAL HISTORY: PRE OP BILAT RAQUEL. TECHNIQUE: 2D digital imaging was performed. COMPARISON: CR XR HIP PELVIS ADULT BL from 03/02/2024 MR MR LOWER JOINT RT WO from 05/25/2025 FINDINGS: Single AP view the hips No evidence fracture. The amount of degenerative change in the hips appears similar to 03/02/2024. Again noted is what appears to be a prominent osteochondroma off of the posterior aspect of the right femoral neck, previously described. This appears unchanged. There is no lytic lesion evident. IMPRESSION: Stable appearance of the prominent osteo chondroma coming off of the posterior aspect of the right femoral neck. DATA REPOSITORY: RADIATION DOSE DELIVERED:
== END 2025-07-22 14:23 | disposition home or self-care (01) ==
LOC: DIORS 14:22
PROVIDERS: PCP Family Medicine; Visit Provider Physician Assistant
DX: Z01.818 Encounter for other preprocedural examination (principal); M16.0 Bilateral primary osteoarthritis of hip
CPT/HCPCS: 99024; 72170

== ENCOUNTER 2025-07-27 06:02 | Day surgery (SDC) | payer MEDICARE, SELFPAY ==
--- NOTE | 2025-07-26 16:02 | W.ANESPRE ---
General Info Date of Service Date Performed: 07/27/25 Height: 5 ft 8 in Weight: 71.214 kg Body Mass Index (BMI): 23.8 Surgical Procedure: Operation Date: 07/27/25 08:00 Proposed Procedure Side Surgeon p Hip Total Hip Anterior Bilateral Bilateral Freddy Jin MD Meds Allergies and Home Medications Allergies Allergy/AdvReac Type Severity Reaction Status Date / Time No Known Allergies Allergy Verified 07/27/25 06:15 Home Medication ?Medication ?Instructions ?Recorded cholecalciferol (vitamin D3) 10 1,000 unit PO DAILY 08/01/21 mcg (400 unit) capsule cyanocobalamin (vitamin B-12) 500 500 mcg PO DAILY 08/01/21 mcg tablet atorvastatin 20 mg PO .qd 04/13/24 acetaminophen 500 mg tablet 500 mg PO ONCE 07/27/25 (Tylenol Extra Strength) ibuprofen 400 mg tablet (IBU) 400 mg PO ONCE 07/27/25 Current Visit Medications: Current Medications Generic Name Dose Route Start Last Admin Trade Name Freq PRN Reason Stop Dose Admin Acetaminophen 1,000 mg 07/27/25 06:00 Acetaminophen 500 Mg Tab PO 08/25/25 23:59 PREOP TAHIR Celecoxib 400 mg 07/27/25 06:00 Celecoxib 200 Mg Cap PO 08/25/25 23:59 PREOP TAHIR Ringer's Solution 1,000 mls @ 80 mls/hr 07/27/25 06:00 IV 08/25/25 23:59 INFUSION TAHIR Cefazolin Sodium/Dextrose 2 gm in 50 mls @ 100 mls/hr 07/27/25 06:00 Ancef Duplex IVPB 08/25/25 23:59 PREOP TAHIR Tranexamic Acid/Sodium Chloride 1,000 mg in 100 mls @ 600 mls/hr 07/27/25 06:00 IVPB 08/25/25 23:59 PREOP TAHIR Tranexamic Acid/Sodium Chloride 1,000 mg in 100 mls @ 600 mls/hr 07/27/25 06:00 IVPB 08/25/25 23:59 DIRECTED TAHIR Sodium Chloride 0 ml 07/27/25 06:00 Normal Saline Flush 10 Ml Syr IV 08/25/25 23:59 PRN PRN Sodium Chloride 0 ml 07/27/25 06:00 Normal Saline 10 Ml Vial IJ 08/25/25 23:59 DIRECTED PRN Sterile Water 0 ml 07/27/25 06:00 Water,Injection,Sterile 10 Ml Vial IJ 08/25/25 23:59 DIRECTED PRN PFSH Active Problems Active Problems: Problem Status Onset Code Chronic otitis externa of left ear Acute H60.62 Trochanteric bursitis of both hips Acute M70.61, M70.62 Osteoarthritis, hip, bilateral Chronic M16.0 Acute otitis externa of left ear Acute H60.502 Sensorineural hearing loss, bilateral Acute H90.3 Conductive hearing loss, external ear Acute H90.2 Impacted cerumen, bilateral Acute H61.23 Medical History Medical History Sensorineural hearing loss Proteinuria Hyperlipidemia Diverticulosis of large intestine without hemorrhage 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 Benign essential hypertension Surgical History Surgical History Hx of hernia repair History of surgical removal of skin lesion Hx of tonsillectomy Tobacco Smoking/Tobacco Use Status: Never Alcohol Alcohol Intake: current Alcohol intake frequency: 0-2 drinks per day Alcohol type: wine Substance Use Substance use: Never Substance use type: does not use Vital Signs and Lab Results Vital Signs Most Recent Vital Signs in EMR: Temp Pulse Resp BP Pulse Ox 36.6 C 78 16 160/88 H 98 07/27/25 06:30 07/27/25 06:30 07/27/25 06:30 07/27/25 06:30 07/27/25 06:30 Lab Results 07/27/25 06:48 07/27/25 06:48 Blood Type / Crossmatch: Antibody Screen Pending Today Complete Blood Count: WBC, (4.4-10.8) 5.85 10^3/uL 07/05/25, 09:00 RBC, (4.36-5.78) 4.78 10^6/uL 07/05/25, 09:00 Hgb, (13.5-17.5) 15.4 g/dL 07/05/25, 09:00 Hct, (40.0-50.0) 44.2 % 07/05/25, 09:00 Plt Count, (130-400) 254 10^3/uL 07/05/25, 09:00 Complete Metabolic Panel: Sodium, (136-145) 142 mmol/L 07/05/25, 09:00 Potassium, (3.5-5.1) 4.3 mmol/L 07/05/25, 09:00 Chloride, (98-107) 105 mmol/L 07/05/25, 09:00 Carbon Dioxide, (20.0-31.0) 30.4 mmol/L 07/05/25, 09:00 BUN, (9-23) 16 mg/dL 07/05/25, 09:00 Creatinine, (0.73-1.18) 0.8 mg/dL 07/05/25, 09:00 Est GFR (CKD-EPI 2020), (mL/min/1.73m2) 96.61 07/05/25, 09:00 Calcium, (8.3-10.6) 9.0 mg/dL 07/05/25, 09:00 Glucose, (74-106) 93 mg/dL 07/05/25, 09:00 Anesthesia Assessment and Plan Anesthesia History Personal History: No History of Anesthesia Complications Family History: No Family History of Anesthesia Complications Exercise Tolerance Exercise Tolerance: Metabolic Equivalents>4 Cardiac & Pulmonary Exam Cardiac Exam: Normal S1/S2 Heart Sounds Pulmonary Exam: Clear Bilateral Breath Sounds Implantable Cardiac Device Does patient have a Pacemaker or an ICD?: No Airway Exam Known Difficult Airway: No Mallampati Class: 2 Mouth Opening: Normal (> 3cm) Thyromental Distance: Greater than 3 cm Neck Range of Motion: Full ROM Neck Circumference: Normal Teeth Condition: Normal Dentition ASA Classification ASA Score: ASA 2 Emergency Case?: No NPO Status NPO Status: NPO Clears >2 hours, Solids >8 hours Anesthesia Plan Resuscitation Status: Full Code Anesthesia Technique: Spinal Anesthesia Airway Planned: Natural Airway Monitors Used: Standard Monitors Preoperative Comments:: 74 yo with NKDA for bilateral RAQUEL. Sig PMHx: HTN (130/76 at PCP. no meds), LBP, tremor. Never smoker, occ EtOH. ECG (at PCP): sinus, LAE.
[2025-07-27] VITALS (29 sets, daily range): BP systolic 91–160; BP diastolic 56–88; PULSE 59–96; RESP 9–26; TEMP 36.2–36.6; O2SAT 91–100; BMI 23.8
[2025-07-27] MEDS: Celecoxib 200 MG CAP 400 MG PO (06:35)
[2025-07-27] MEDS: Acetaminophen 500 MG TAB 1000 MG PO ×2 (06:35→14:51)
[2025-07-27] MEDS: Lactated Ringers 1,000 ML 80 ML IV (07:03)
--- NOTE | 2025-07-27 07:28 | ROE_ITS ---
Operative Note Operative Note PRE-OP DIAGNOSIS: Bilateral Hip Osteoarthritis POST-OP DIAGNOSIS: same PROCEDURE: Bilateral Anterior Total Hip Arthroplasty with Intraoperative Navigation SURGEON: Freddy Jin SAP BW BI DEVELOPER: Lizbeth Timmons ANESTHESIA TYPE: Spinal Refer to Anesthesia Record ESTIMATED BLOOD LOSS: 700 PATHOLOGY: none sent COMPLICATIONS: None Patient was transported to: PACU Patient's condition: stable Implants: RIGHT: 1. Depuy Dupo Acetabular Component, 56mm 2. Depuy Acetabular Liner, [id number] 3. Depuy Actis High Offset Collared Femoral Stem, Size 6 4. Depuy Altrx Ceramic Femoral Head, Size 36+5mm LEFT: 1. Depuy Dupo Acetabular Component, 56mm 2. Depuy Acetabular Liner, [id number] 3. Depuy Actis High Offset Collared Femoral Stem, Size 5 4. Depuy Altrx Ceramic Femoral Head, Size 36+5mm Indications: I have seen Luis in clinic for symptoms of hip arthritis, confirmed with radio graphic findings. He has exhausted nonoperative methods and was having significant limitations in daily function and desired better function and less pain. I discussed the technical details of a hip replacement. I explained the risks of the procedure to include, but not limited to, bleeding, infection, pain, stiffness, fracture, damage to nerves and vessels, damage to muscles and tendons, loosening, instability, leg length inequality, need for repeat procedure, blood clot and cardiopulmonary demise. Despite these risks, Luis elected to proceed. Findings: There was significant signs of arthritis throughout both hips. The right hip had a large osteophyte about the superior-posterior femoral neck. Procedure Description: Art was greeted in the preoperative holding area where the correct side was identified and marked. The consent was reviewed with the patient and signed. The history and physical was updated. All questions were answered. He was taken back to the operating room. A spinal anesthestic was then administered. The patient was placed into the supine position on the HANA table. Both feet were wrapped with Webrill cotton wrap along with Coban. LEFT Side The feet were placed in specialized boots for the HANA table, well seated within the boot and secured. SCDs were applied. The patient was then slid down onto a peroneal post. A preoperative AP hip was obtained to serve as a reference for determining leg lengths. Prophylactic antibiotics in the form of Cefazolin were administered. 1g of Tranxemic Acid was given intravenously within 30 minutes of incision. The left leg was then prepped with Chloraprep and draped in a standard fashion. A second prep with Chloraprep was performed prior to placement of a shower-curtain type drape with Iodine impregnated skin protection. A timeout to confirm correct identity, side and site, procedure, allergies, anesthesia, and medical concerns was performed. An obliquely oriented incision was made starting lateral to the ASIS and running distal over the Tensor Fascia Elham (TFL) muscle belly toward the fibular head, approximately 10cm. The skin and soft tissue was dissected sharply, through Justyna?s fascia, and to the fascia of the TFL. With the fascia and superior border of the IT band identified, the fascia was incised with a new knife just above any perforators from the IT band. The TFL muscle belly was bluntly dissected away from the fascia and moved laterally. The fat between TFL and rectus was identified to ensure the dissection was not within the TFL. Blunt dissection created space between abductors and the capsule and retractor was placed over the lateral femoral neck. The fibers of the rectus femoris tendon were identified and these were freed from the anterior capsule. A second cobra retractor was placed around the medial femoral neck. The TFL was further retracted laterally to show the deep fascia. Careful dissection through this layer identified three main crossing vessels of the lateral femoral circumflex. These were cauterized in multiple locations and then cut without any noticeable bleeding. The TFL was further released bluntly from the deep fascia to expose anterior hip capsule and fat The Daryl orthopaedic retractor was then placed beneath the TFL and against sartorius and medial soft tissues to protect and retract the soft tissues. A T-capsulotomy was then performed starting at the superior lateral acetabulum and moving distally to the intertrochanteric ridge. These capsular flaps were tagged with a No. 1 Ethibond and elevated from within. The capsular flaps were released to the shoulder of the lateral neck and to the lesser trochanter to give excellent visualization of the proximal femur. A neck osteotomy was performed using an oscillating saw based on preoperative templates. This cut started in the shoulder and of the lateral neck and exited medially. The saw was at all times directed medially to avoid injury to the greater trochanter. Gentle traction was applied to the leg and the osteotomy opened. The femoral head was removed with a corkscrew, making sure to protect the TFL on its exit. This was measured on the back table to determing the starting reamer size. Portions of the rectus obscuring visualization were minimally elevated off the superior acetabulum. An anterior retractor was placed over the anterior wall between capsule and labrum and attached to the Gripper retraction system. A posterior retractor was placed similarly. This provided excellent visualization. The contents of the cotyloid fossa were removed with electrocautery and the labrum was removed with a knife. There was a notable floor osteophyte. There was significant chondromalacia of the superior acetabulum. Acetabular reaming began with a 51mm reamer. This first reaming was directed anterior to posterior and medial to get down to the true floor. This was inspected and reamed until the true floor was reached. The anterior retractor was then released and entry and exit was provided by traction on the capsular flaps. I then reamed sequentially up to a 56mm reamer where good fit was obtained. The larger reamers were oriented based on anatomical reference of the anterior and lateral jenkins to ensure proper abduction and anteversion. Positioning and size was confirmed with the fluoroscopy. A 56mm Depuy Dupo acetabular component was selected. The acetabulum was reamed around the periphery with the selected acetabular size to prevent a rim fit. The deep tissues were irrigated. The acetabular component was then impacted in a position of about 40-45 degrees of abduction and 15-20 degrees of anteversion, using the patient?s anatomy as the ultimate landmark. Fluoroscopy was used to confirm this. There was excellent neonatal social worker of the acetabular component and the inserting handle was removed. The acetabular liner, Depuy [id number] polyethylene liner, was inserted and lined up with the tines of the acetabular component. There was no soft tissue interposition. The liner was then impacted into position and confirmed to be well-seated. A portion of the adam-articular cocktail was then injected around the acetabulum into the capsule and periosteum. This cocktail consisted of 123mg of Ropivacaine, 0.25mg of Epinephrine, 0.04mg of Clonidine, and 15mg of Ketorolac, diluted to 50cc. Traction was released from the femur. The leg was rotated to 120 degrees. Any remaining medial capsule was released until the lesser trochanter was easily palpable. A El retractor was placed medially. The lateral capsule was further released into the shoulder to allow access to the greater trochanter. A El retractor was placed over the greater trochanter which allowed the trochanter to flip in front of the capsule for excellent exposure. The leg was brought down into maximal extension and 20 degrees of adduction while ensuring there was no impingement on the acetabulum. Any remnant capsule within the trochanter was released. Piriformis and obturator externis were identified and protected. There was excellent access to the proximal femur. The lateral neck remnant was removed with a rongeur. A blunt canal probe was used to identify the canal and trajectory for later b roaching. A box osteotome initiated the broach course. A small curved rasp and a curved curette were used to work laterally. Broaching then began with a size 8 Corail broach. This was inserted manually around the trochanter and into the canal before mallet blows. The broach was seated to a few millimeters below the cut level based on the neck cut and the preoperative template. Sequential bro aching was continued with the [employer] pneumatic broaching device until a tight fit was obtained with good rotational control of the femur. A trial high offset neck was inserted along with a +5mm trial head. The leg was brought out of extension and adduction and then reduced with traction and internal rotation. The leg was stable anteriorly in a position of 30 degrees of extension and 90 degrees of external rotation. Fluoroscopy was used to ensure there was no fracture and the stem was seated well. Leg lengths were checked with an AP pelvis and pelvic reference points. [employer] naviga tion system was used to confirm appropriate positioning and leg length and offset. Once content with the desired offset and leg lengths, the leg was brought back into extension, external rotation and adduction. The periosteum and surrounding tissue was injected with remaining portion of the adam-articular cocktail. The proximal femur was irrigated as well as the deep tissues. The Depuy Actis High Offset collared stem, size 5, was then manually inserted into the proximal femur making sure to control rotation. It was then malleted into position with light blows, giving breaks to allow bone expansion and decrease risk of fracture. The selected Depuy Altrx Ceramic Head, size 36+5mm, was then placed onto the clean and dry trunnion and secured with impaction onto the tapered fit. The leg was brought back out of extension and adduction and reduced with traction and internal rotation. Stability was confirmed with no shuck at 90 degrees of external rotation and 30 degrees of extension. No impingement through range of motion arc. Final x-ray images were obtained with fluoroscopy to confirm adequate positioning and no intraoperative fracture. The deep tissues were thoroughly irrigated with Irrisept chlorhexadine solution. The capsule was then reapproximated with the previously placed Ethibond sutures. The TFL fascia was finally closed with a No. 2 Stratafix, barbed s uture. Deep tissues were then reapproximated with 0 Vicryl and a running 2-0 Vicryl. The skin was closed with a running 4-0 Monocryl in a subcuticular fashion. This was reinforced with skin glue. A Mepilex silver dressing was applied. The second dose of TXA 1g was administered intravenously. RIGHT Side Keeping the back table sterile, the drapes were removed, light handles changed, and fluoroscopy switched rooms sides. Once again, a AP hip was obtained to serve as a reference for determining leg lengths. The right leg was then prepped with Chloraprep and draped in a standard fashion. A second prep with Chloraprep was performed prior to placement of a shower-curtain type drape with Iodine impregnated skin protection. A timeout was once again performed to e nsure that there were no issues to proceed. An obliquely oriented incision was made starting lateral to the ASIS and running distal over the Tensor Fascia Elham (TFL) muscle belly toward the fibular head, approximately 10cm. The skin and soft tissue was dissected sharply, through Justyna?s fascia, and to the fascia of the TFL. With the fascia and superior border of the IT band identified, the fascia was incised with a new knife just above any perforators from the IT band. The TFL muscle belly was bluntly dissected away from the fascia and moved laterally. The fat between TFL and rectus was identified to ensure the dissection was not within the TFL. Blunt dissection created space between abductors and the capsule and retractor was placed over the lateral femoral neck. The fibers of the rectus femoris tendon were identified and these were freed from the anterior capsule. A second cobra retractor was placed around the medial femoral neck. The TFL was further retracted laterally to show the deep fascia. Careful dissection through this layer identified three main crossing vessels of the lateral femoral circumflex. These were cauterized in multiple locations and then cut without any noticeable bleeding. The TFL was further released bluntly from the deep fascia to expose anterior hip capsule and fat The Daryl orthopaedic retractor was then placed beneath the TFL and against sartorius and medial soft tissues to protect and retract the soft tissues. A T-capsulotomy was then performed starting at the superior lateral acetabulum and moving distally to the intertrochanteric ridge. These capsular flaps were tagged with a No. 1 Ethibond and elevated from within. The capsular flaps were released to the shoulder of the lateral neck and to the lesser trochanter to give excellent visualization of the proximal femur. A neck osteotomy was performed using an oscillating saw based on preoperative templates. This cut started in the shoulder and of the lateral neck and exited medially. The saw was at all times directed medially to avoid injury to the greater trochanter. Gentle traction was applied to the leg and the osteotomy opened. The femoral head was removed with a corkscrew, making sure to protect the TFL on its exit. This was measured on the back table to determing the starting reamer size. Portions of the rectus obscuring visualization were minimally elevated off the superior acetabulum. An anterior retractor was placed over the anterior wall between capsule and labrum and attached to the Gripper retraction system. A posterior retractor was placed similarly. This provided excellent visualization. The contents of the cotyloid fossa were removed with electrocautery and the labrum was removed with a knife. There was a notable floor osteophyte. There was significant chondromalacia of the superior acetabulum. Acetabular reaming began with a 51mm reamer. This first reaming was directed anterior to posterior and medial to get down to the true floor. This was inspected and reamed until the true floor was reached. The anterior retractor was then released and entry and exit was provided by traction on the capsular flaps. I then reamed sequentially up to a 56mm reamer where good fit was obtained. The larger reamers were oriented based on anatomical reference of the anterior and lateral jenkins to ensure proper abduction and anteversion. Positioning and size was confirmed with the fluoroscopy. A 56mm Depuy Dupo acetabular component was selected. The acetabulum was reamed around the periphery with the selected acetabular size to prevent a rim fit. The deep tissues were irrigated. The acetabular component was then impacted in a position of about 40-45 degrees of abduction and 15-20 degrees of anteversion, using the patient?s anatomy as the ultimate landmark. Fluoroscopy was used to confirm this. There was excellent neonatal social worker of the acetabular component and the inserting handle was removed. The acetabular liner, Depuy [id number] polyethylene liner, was inserted and lined up with the tines of the acetabular component. There was no soft tissue interposition. The liner was then impacted into position and confirmed to be well-seated. A portion of the adam-articular cocktail was then injected around the acetabulum into the capsule and periosteum. This cocktail consisted of 123mg of Ropivacaine, 0.25mg of Epinephrine, 0.04mg of Clonidine, and 15mg of Ketorolac, diluted to 50cc. Traction was released from the femur. The leg was rotated to 120 degrees. Any remaining medial capsule was released until the lesser trochanter was easily palpable. A El retractor was placed medially. The lateral capsule was further released into the shoulder to allow access to the greater trochanter. A El retractor was placed over the greater trochanter which allowed the trochanter to flip in front of the capsule for excellent exposure. The leg was brought down into maximal extension and 20 degrees of adduction while ensuring there was no impingement on the acetabulum. Any remnant capsule within the trochanter was released. Piriformis and obturator externis were identified and protected. There was excellent access to the proximal femur. The lateral neck remnant was removed with a rongeur. A blunt canal probe was used to identify the canal and trajectory for later broaching. A box osteotome initiated the broach course. A small curved rasp and a curved curette were used to work laterally. Broaching then began with a size 8 Corail broach. This was inserted manually around the trochanter and into the canal before mallet blows. The broach was seated to a few millimeters below the cut level based on the neck cut and the preoperative template. Sequential broaching was continued with the [employer] pneumatic broaching device until a tight fit was obtained with good rotational control of the femur. A trial high offset neck was inserted along with a +5mm trial head. The leg was brought out of extension and adduction and then reduced with traction and internal rotation. The leg was stable anteriorly in a position of 30 degrees of extension and 90 degrees of external rotation. Fluoroscopy was used to ensure there was no fracture and the stem was seated well. Leg lengths were checked with an AP pelvis and pelvic reference points. [employer] navigation system was used to confirm appropriate positioning and leg length and offset. Once content with the desired offset and leg lengths, the leg was brought back into extension, external rotation and adduction. This did seem to be slightly valgus oriented although the x-rays look appropriate. There was some space of in the medial edge of the implant and the medial calcar above the intertrochanteric ridge. Therefore, I prepared some bone from the reamings earlier for packing at the time of implantation of the hip stem. The periosteum and surrounding tissue was injected with remaining portion of the adam-articular cocktail. The proximal femur was irrigated as well as the deep tissues. The Depuy Actis high offset collared stem, size 6, was then manually inserted into the proximal femur making sure to control rotation. Before he was finally down, I utilized some bone removed from the box osteotome as well as from the planer to pack and the space between the medial aspect of the stem and the medial calcar. This was manually impacted into position. Then, the stem was then malleted into position with light blows, giving breaks to allow bone expansion and decrease risk of fracture, until was down to the cut surface. The selected Depuy Altrx Ceramic Head, size 36+5mm, was then placed onto the clean and dry trunnion and secured with impaction onto the tapered fit. The leg was brought back out of extension and adduction and reduced with traction and internal rotation. Stability was confirmed with no shuck at 90 degrees of external rotation and 30 degrees of extension. No impingement through range of motion arc. Final x-ray images were obtained with fluoroscopy to confirm adequate positioning and no intraoperative fracture. The deep tissues were thoroughly irrigated with Irrisept chlorhexadine solution. The capsule was then reapproximated with the previously placed Ethibond sutures. The TFL fascia was finally closed with a No. 2 Stratafix, barbed suture. Deep tissues were then reapproximated with 0 Vicryl and a running 2-0 Vicryl. The skin was closed with a running 4-0 Monocryl in a subcuticular fashion. This was reinforced with skin glue. A Mepilex silver dressing was applied. At the end of the case, all counts were correct. Art was transferred to the hospital bed without difficulty and suffering no apparent complication. He has a good prognosis. Physical therapy will start today and without restrictions, weight-bearing as tolerated. Aspirin 81mg BID will be used for DVT prophylaxis. Date of Procedure: 07/27/25
--- NOTE | 2025-07-27 07:28 | PDOC.DSDIS_ITS ---
Date of service: 07/27/25 Discharge Plan Disposition Patient Disposition: Home Condition: Good Discharge Details Reason For Visit: Bilateral hip DJD Attending Provider: Freddy Jin Primary Care Provider: Huma Romeo Home Meds and New Rx's Prescriptions: New acetaminophen 500 mg tablet 1,000 mg PO Q8H PRN Qty: 90 0RF Rx Instructions: Take two tablets up to every 8 hours as needed for pain aspirin 81 mg tablet,delayed release (DR/EC) 81 mg PO BID 30 Days Qty: 60 0RF celecoxib [Celebrex] 200 mg capsule 200 mg PO BID PRNQty: 60 0RF Rx Instructions: Take one tablet twice daily for pain and inflammation docusate sodium [Colace] 100 mg capsule 100 mg PO BID Qty: 28 0RF pantoprazole 40 mg tablet,delayed release (DR/EC) 40 mg PO DAILY Qty: 14 0RF Rx Instructions: Take one tablet once daily dexamethasone 4 mg tablet 4 mg PO DAILY Qty: 2 0RF Rx Instructions: Take one tablet once daily for two days oxycodone 5 mg tablet 5 mg PO Q6H PRNQty: 12 0RF Rx Instructions: Take one tablet up to every 6 hours as needed for severe postoperative pain Continued atorvastatin 20 mg PO .qd cholecalciferol (vitamin D3) 10 mcg (400 unit) capsule 1,000 unit PO DAILY cyanocobalamin (vitamin B-12) 500 mcg tablet 500 mcg PO DAILY Discontinued acetaminophen [Tylenol Extra Strength] 500 mg tablet 500 mg PO ONCE Patient Comments: 1000 mg dose ibuprofen [IBU] 400 mg tablet 400 mg PO ONCE Discharge Instructions Additional Instructions: Total Hip Discharge Instructions Activity: The most important activity is to walk. You should try to take short walks a few times a day. You have no restrictions on movement or positioning, but do not try to force what you do. You will find some stiffness and weakness with hip flexion (lifting your knee). Do not try to strengthen this too early, continue to practice walking and stairs and this will come. - Outpatient physical therapy can be helpful to help return you to a normal gait and improve your flexibility and strength. This can start around 2 weeks. For some patients, it?s not necessary. Usually this is determined at the time of discharge or at the first post-operative visit. - You should wear the RODRIGUEZ hose on both legs for 2 weeks. Dressing: Keep the surgical dressing in place for at least one week. After the first week it may be removed and replace with light gauze and tape or nothing. It may get wet after 3 days but avoid soaking the dressing. If it gets wet, j ust lightly pat dry. It is important to always keep some gauze between skin folds, especially when you are sitting. Spend some time with the wound exposed when you are lying flat as the incision does wrinkle onto itself. Medications: - You should take Tylenol and an anti-inflammatory Celebrex as your primary pain control medications. If the Celebrex is too expensive or not covered, please call the office for another alternative (Advil/Ibuprofen or Naproxen/Aleve). - You have been prescribed a stronger pain medication Oxycodone for breakthrough pain, take as needed as prescribed. - You have also been prescribed a stomach acid reduction agent Pantoprozole to help reduce stomach acid and reflux. - You have also been prescribed Decadron to help with post-operative nausea and pain. You will take this for two days starting tomorrow. - You will be taking Aspirin 81mg twice a day for DVT prevention unless instructed otherwise. - If you have constipation you should take Colace (which has been prescribed) or Miralax (which is available [id number]). It takes most people 3-4 days to have a bowel movement. Follow-up: 2 weeks If you have any acute concerns or questions, please do not hesitate to contact the office at [phone]. You may contact Dr. Jin with any questions after hours through the hospital at [phone] or on his cell phone at [phone]. Stand Alone Forms: Portal Information Referrals: Freddy Jin MD [ [facility] STAFF PHYSICIAN, Orthopaedic Surgical] Equipment/Supplies: Walker Activity:: Elevate Remove Dressings/Wound Care:: Do Not Remove Shower/Bathe:: Cover Diet:: As Tolerated Discharge Orders Discharge Orders: Discharge Order (Routine); Ordered 07/27/25 Ordered By: Lizbeth Timmons
[2025-07-27] MEDS: ceFAZolin 2 GM/50 ML BAG IVPB (07:35)
[2025-07-27] MEDS: TRANEXAMIC ACID/SOD. CHL. 1,000 MG/100 ML BAG 600 MG IVPB ×2 (07:41→08:45)
[2025-07-27] MEDS: ROPIvacaine/EPI/CLONIDINE/KET 50 ML SYRINGE IJ (08:01)
--- NOTE | 2025-07-27 08:38 | DI.RAD_ITS ---
Exam(s) XR HIP LT IN OR EXAM: XR HIP LT IN OR CLINICAL HISTORY: left hip osteoarthritis. TECHNIQUE: 2D and realtime digital imaging was performed. COMPARISON: CR XR PELVIS AP from 07/22/2025 FINDINGS: A hard copy image shows placement a left hip prosthesis. The alignment appears satisfactory. Please see procedure note for details. Fluoro time: 23.6seconds RADIATION DOSE DELIVERED: Ka,r=1.94 mGy
--- NOTE | 2025-07-27 09:52 | DI.RAD_ITS ---
Exam(s) XR HIP RT IN OR EXAM: XR HIP RT IN OR CLINICAL HISTORY: right hip osteoarthritis. TECHNIQUE: 2D and realtime digital imaging was performed. COMPARISON: CR XR PELVIS AP from 07/22/2025 XA XR HIP LT IN OR from 07/27/2025 FINDINGS: Hard copy images show placement of a right hip prosthesis. The alignment appears satisfactory. Please see procedure note for details. Fluoro time: 22.6Seconds RADIATION DOSE DELIVERED: sawyer Elise=1.82 mGy
--- NOTE | 2025-07-27 10:26 | W.ANESPOSTOP ---
Postoperative Evaluation Date, Time and Location Date Performed: 07/27/25 Time Performed: 10:28 Patient Location: PACU Vital Signs Most Recent Imported Vital Signs: Most Recent Vital Signs Temp Pulse Resp BP Pulse Ox 36.5 C 78 16 160/88 H 98 07/27/25 10:07 07/27/25 06:30 07/27/25 06:30 07/27/25 06:30 07/27/25 06:30 Pain Score Most Recent Pain Score: Most Recent Pain Score Pain Level 0 07/27/25 10:07 Assessment Mental Status: Arousable with meaningful communication Airway and Respiratory Function: Patent airway with normal (patient baseline) respiratory exam Cardiovascular Function: Hemodynamically Stable Hydration Status: Adequately Hydrated Nausea & Vomiting: No Nausea or Vomiting Pain: Pain is tolerable per patient (spinal still waning. ) Peripheral Nerve Block: Patient did not receive a nerve block
[2025-07-27] MEDS: fentaNYL 100 MCG/2 ML VIAL IVP ×2 (10:31→10:43)
[2025-07-27] MEDS: Tranexamic Acid 650 MG TAB 1300 MG PO (12:27)
--- NOTE | 2025-07-27 13:25 | PT.INIE ---
PT Notes Visit Reasons: Bilateral hip DJD ? Physical Therapy Day Surgery Initial Evaluation Date: 07/27/2025 Referring Doctor: Lizbeth Timmons NP PT Orders: PT CONSULT: Day Surgery Evaluation Precautions: Standard, Fall, WBAT. B RAQUEL Patient Profile/Admitting Diagnosis: Pt is a 74 Male who had BTHA d/t arthritis in both hips. Pt was provided spinal anesthesia with no nerve block. Pt loss 700 cc of blood during surgery. PMHX: Chronic otitis externa of left ear (Acute) Trochanteric bursitis of both hips (Acute) DEPO MEDROL 07/13/24Osteoarthritis, hip, bilateral (Chronic) Left - 80 mg Depo-Medrol intra-articular injection: 5Acute otitis externa of left ear (Acute) Sensorineural hearing loss, bilateral (Acute) Conductive hearing loss, external ear (Acute) Impacted cerumen, bilateral (Acute) Medical History Sensorineural hearing loss Proteinuria Hyperlipidemia Diverticulosis of large intestine without hemorrhage 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 Benign essential hypertension Surgical History Hx of hernia repair History of surgical removal of skin lesion Hx of tonsillectomy Social History/Home Situation: Pt lives at in older [place] house with and son with CP. Pt home has two GIRMA with no railing. Pt bathroom has an elevated toilet with shower rails.Pt able to access his home withportable ramps at all entrances and a portable ramp within the home to move from living room the kitchen. Equipment Owned/DME: FWW, cane, ramp RTS grab bars in shower Subjective: Pt reported feeling well, a little numbness in his feet in the beginning. Objective:essential tremor in head in sitting and stand General Observation: during the first session pt feet pointed medial while laying and during standing Mental Status: alert and oriented x4. Pt needed increase time to respond, pt also sometimes wouldn?t answer question Pain: First session: in anterior hips 4/10 while lying in bed, 6/10 after standing. Second session: in anterior hips 4/10, had some slight discomfort in his buttocks ?from sitting for so long? Vitals: First session: Semi reclined: HR 64bpm, BP 106/57 Seated: HR 71bpm, BP 109/80 Stand: HR 81bpm, BP 91/63 Sit HR 71bpm, BP 115/63 Second session: Semi reclined in chair HR 71bpm, BP 121/74 Stand HR 100bpm, BP 112/69 ROM: Right Upper Extremity: Grossly WFL Left Upper Extremity: Grossly WFL Right Lower Extremity: Grossly WFL Left Lower Extremity: Grossly WFL Strength: Right Upper Extremity: Grossly 4/5 Left Upper Extremity: Grossly 4/5 Right Lower Extremity: Grossly -4/5 no quad lag Left Lower Extremity: Grossly -4/5 no quad lag Sensation: First session: numbness in feet Second session: intact and WNL Bed Mobility/Transfers: Supine to sit Min A of 1 Sit to stand CGA of 1 FWW Stand to sit CGA of 1 FWW Bed to chair CGA of 1 FWW Gait: Pt ambulated a total of 30 feet with FWW and CGA. Pt performed a step to walking pattern and needed verbal cueing for directions and hand placement: Stairs: pt performed 3 4inch steps with railings on both sides and CGA. Pt needed demonstration and verbal cueing for hand and foot placement. Balance: Static Sitting: good Dynamic Sitting: good Static Standing: good Dynamic Standing: fair UE support Special Tests: Mobility Limitations Standardized Measure [facility] 6 clicks Basic Mobility Inpatient Short Form: Raw Score: 20? CMS Score: 35.83 Informed Consent/Education:? Patient instructed in purpose of PT consult.? Packet containing RAQUEL exercise protocol has been given to patient.? Education and training on initial set of exercises that can be done at home have been completed with patient. Therapeutic Activity 48148: Both LE Quad contraction: [id number] no lag Glute contraction: [id number] Heel slides: [id number] LAQ: [id number] Gait: Pt ambulated a total of 35 feet with FWW and CGA. Pt performed a step to walking pattern and needed verbal cueing for directions and hand placement: Stairs: pt performed 3 4inch steps with FWW in front and 2 6inch steps with hands on both rails for one step and the FWW in front for the second step with CGA. Pt needed demonstration and verbal cueing for hand and foot placement. Pt also needed verbal cueing to make sure his heel is fully on the step before attempting to step up. Assessment: ? Pt performed well today. During the first session pt became dizzy with standing. Pt ambulated to the recliner with FWW CGA. Nursing was made aware of pt dizziness and vitals were taken. PT decided to let pt rest and eat some food before continuing. During the second session pt looked much better. He was more awake and alert. As pt stood and ambulated his toes were neutral and didn?t point medially. Although pt was ambulating more effectively in the second session. Pt showed signs of tiredness and was moving slower. Do to this DPTS had the pt sit in a wheelchair before attempting the stairs. Pt reported feeling well, and that he was tired and had some pain in his anterior hips. After some time felt ready to attempt the stairs. Pt ambulated the stairs well he needed moderate verbal cueing for foot/hand placement. Pt needed cueing to make sure his heel was fully on the step before attempting to step up. Pt will be discharged home with HEP until follow up appointment with surgeon. If pt continues to have LE weakness and decrease in balance, and activity tolerance, he would benefit from skilled physical therapy. Patient presents with clinical signs and symptoms consistent with current/admitting diagnoses that have resulted to mobility limitations, gait instability, generalized weakness, and impairment of motor control as demonstrated by the following impairment level findings: 1.? Decreased strength to both LE major muscle groups 2.? Impaired standing/dynamic balance 3.? Limitation of joint range of motion in left knee 4. pain B hips 5. Activity tolerance 6. Dizziness Impairments are contributing to the following functional limitations: 1.? Inability to safely ambulate without assistive device 2.? Increase completion time for mobility ADL performance 3.? Increased fall risk 4.Difficulty performing stairs without assistance Patient is assessed as a Moderate complexity based on the following: History: 74-year-old male with impairment level findings, functional limitations, and past medical history as indicated above Examination: Demonstrable impairment in strength, balance, and mobility level with underlying impairments and functional limitations as documented above Presentation: evolving Decision Making: Moderate Goals: N/A.? PT evaluation and 1-2 treatment sessions only for functional mobility training using recommended AD and for HEP instruction. Plan of Care/Treatment Plan: N/A.? PT evaluation and 1-2 treatment session only for functional mobility training using recommended AD and for HEP instruction. DISCHARGE RECOMMENDATIONS: Home with HEP until follow up appointment TREATMENT CODE/TIME: [id number]/11:45am-1215pm,12:45pm-1:15pm Thank you for the opportunity to participate in the care of this patient. Written by Abel Parry DPTS Supervised by: Kaern Araujo PT ? [facility]
[2025-07-27] MEDS: Celecoxib 200 MG CAP PO (14:52)
== END 2025-07-27 15:08 | disposition home or self-care (01) ==
PROVIDERS: PCP Family Medicine; Visit Provider Student in an Organized Health Care Education/Training Program
PROC: 0SR90JZ Replacement of Right Hip Joint with Synthetic Substitute, Open Approach (ICD-10-PCS; CPT 27130; principal; 2025-07-27 07:30)
DX: M16.0 Bilateral primary osteoarthritis of hip (principal)
CPT/HCPCS: 20985; 27130; 36415; 80048; 85027; 86850; 86900; 86901; 97162; 97530; 73501; C1776; J0690; J1100; J1805; J2405; J2704; J3010

== ENCOUNTER 2025-08-09 15:14 | Outpatient (CLI) | payer MEDICARE, SELFPAY ==
--- NOTE | 2025-08-09 14:15 | DI.RAD_ITS ---
Exam(s) XR HIP PELVIS ADULT BL EXAM: XR HIP PELVIS ADULT BL CLINICAL HISTORY: 1ST POST OP BILAT THAs. TECHNIQUE: 2D digital imaging was performed. COMPARISON: CR XR PELVIS AP from 07/22/2025 FINDINGS: 3 views There has been interval placement of bilateral hip prostheses on 07/27/2025. There is satisfactory position alignment of the components of the prostheses of both hips. No evidence of fracture nor loosening. No evidence of osteomyelitis. IMPRESSION: Satisfactory appearance of the recently placed bilateral hip prostheses DATA REPOSITORY: RADIATION DOSE DELIVERED:
== END 2025-08-09 15:15 | disposition home or self-care (01) ==
LOC: DIORS 15:14
PROVIDERS: PCP Family Medicine; Referring Provider Family Medicine; Visit Provider Student in an Organized Health Care Education/Training Program
DX: Z47.1 Aftercare following joint replacement surgery (principal); Z96.643 Presence of artificial hip joint, bilateral
CPT/HCPCS: 99024; 73521